=== PATIENT | male | born 1945 | race Caucasian/White ===

== ENCOUNTER 2016-09-27 10:42 | Inpatient (IN) | payer MEDICARE, MEDICAID ==
[2016-09-27] VITALS (44 sets, daily range): BP systolic 83–164; BP diastolic 34–145; PULSE 31–58; RESP 12–27; Ht 170.2 cm; Wt 85.0 kg
[~2016-09-27] VITALS: Ht 170.2 cm; Wt 85.0 kg
[~2016-09-27 10:42] MED LIST: ATROPINE 1 MG/10 ML SYRINGE ONE
[2016-09-27] MEDS ORDERED: ASPIRIN 81 MG TAB ONE (10:50)
[2016-09-27] MEDS ORDERED: ASPIRIN 325 MG TAB PO STA (10:55)
[2016-09-27] MEDS ORDERED: CLOPIDOGREL 75 MG TAB PO ONE (11:00)
[2016-09-27] MEDS ORDERED: HEPARIN 5,000 UNIT/0.5 ML VIAL SC ONE (11:00)
[2016-09-27 11:01] LABS: ADD SCAN DIFF NO
--- NOTE | 2016-09-27 11:05 | ERA ---
ER Documentation Chief Complaint Date/Time DATE: 09/27/16 TIME: 1045 Chief Complaint STEMI IN FIELD , CHEST PAIN WITH BRADYCARDIA, MOD SOB NOW HPI 70-year-old male brought to the emergency department by ambulance for evaluation of possible STEMI. History available via conveyor weigher operator. I am using an iPad for initial translation. Son then arrived to provide further translation. Patient was in his usual state of health until yesterday which time he was generally weak. He became diaphoretic this morning and apparently lost consciousness. According to the son, he performed CPR for an unknown amount of time but it was unclear if he actually lost pulses. The paramedics were called. Upon management internship arrival, patient did have pulses but was severely bradycardic and was brought to the emergency department for evaluation. Upon arrival, patient has no chest pain or shortness of breath or diaphoresis at this time. ROS All systems reviewed and are negative except as per history of present illness. FmHx Noncontributory for chief complaint Physical Exam Vitals Vital Signs Date Time Temp Pulse Resp B/P Pulse Ox O2 Delivery O2 Flow Rate FiO2 09/27/16 10:47 97.4 36 21 87/42 100 Physical Exam GENERAL: Patient is an ill diaphoretic male. HEENT: Pupils equal, round, and reactive to light. EOMI. There is no scleral icterus. NECK: C-spine is soft and supple, there is no meningismus. There is no cervical lymphadenopathy. LUNGS: Clear to auscultation bilaterally. There are no rales, wheezes or rhonchi. HEART: Slow regular rate and rhythm with no murmurs rubs or gallops ABDOMEN: Soft, non-tender, non-distended. There are bowel sounds in all four quadrants. No rebound or guarding. EXTREMITIES: There is no peripheral cyanosis or edema. No focal swelling or erythema. Patient has a left upper extremity AV dialysis graft NEURO: The patient moves all four extremities with 5/5 strength. Cranial nerves II - XII are intact. Normal gait. Alert and oriented SKIN: There is no apparent rash or petechiae. HEME/LYMPHATIC: There is no evidence of excessive bruising or lymphedema. PSYCHIATRIC: The patient does not appear anxious or depressed. Results 24 hrs Current Medications Medications (Trade) Dose Ordered Sig/Jesika Route PRN Reason Start Time Stop Time Status Last Admin Dose Admin Aspirin (Aspirin) 325 mg ONCE STAT PO 09/27/16 10:55 09/27/16 10:56 DC 09/27/16 10:59 Clopidogrel Bisulfate (plaVIX) 600 mg ONCE ONCE PO 09/27/16 11:00 09/27/16 11:01 Heparin Sodium (Porcine) (Heparin (5000 Units/0.5 ml)) 5,000 unit ONCE ONCE SC 09/27/16 11:00 09/27/16 11:01 Procedures/MDM Patient was taken immediately to a room, seen and evaluated. Comfort measures were initiated. Hand Heel Seat Fitter EKG was reviewed and a code STEMI was initiated. Aspirin was given. Atropine was considered, but patient's blood pressure improved with fluids and atropine was not necessary. Diagnostic tests were ordered and reviewed. 3 LEAD RHYTHM STRIP: Slow junctional bradycardia ranging from as low as the 20s to as high as the 50s. Hand Heel Seat Fitter EK lead EKG reviewed by myself: Junctional bradycardia 24 bpm Wide-complex ST elevations inferiorly with anterior reciprocal changes. Impression: ST elevation with complicating junctional bradycardia Repeat EKG upon arrival interpreted by myself: Junctional bradycardia 26 bpm Wide-complex QRS ST elevations inferiorly with anterior lateral reciprocal changes Impression: Junctional bradycardia complicating an inferior ND Repeat EKG interpreted by myself: No significant interval change from above. Heart rate remains bradycardic RADIOLOGY: Chest x-ray reviewed by myself showing no bony or soft tissue abnormalities. Cardiac silhouette slightly enlarged. Mediastinum appears normal. Lung gallagher demonstrate vascular engorgement but no obvious CHF or infiltrate. Impression, cardiomegaly. CONSULTATION: Code STEMI novelties sales representative was notified upon arrival. I spoke with the novelties sales representative soon thereafter and arrangements were made for emergent PCI REEVALUATION: Blood pressure improved with saline. MEDICAL DECISION MAKIN-year-old presents critically ill with a junctional bradycardia complicating an inferior STEMI. Patient is required aggressive medical management including oxygen fluids. Blood pressure is responding to fluids. I have considered using atropine. Potassium and renal function are pending at this time given his dialysis dependent renal failure, but his EKG is clear-cut with an inferior STEMI. I will treat hyperkalemia if necessary. At this time, the blood pressure is adequate. CRITICAL CARE: Time:>35 minutes Patient has a significant chance of clinical deterioration Treatments/Evaluations: Close monitoring and treatment of unstable vital signs, cardiorespiratory, and neurologic status, while maintaining tight balance of fluid, respiratory, and cardiac interventions. Departure Diagnosis: Primary Impression: ST elevation myocardial infarction (STEMI) Additional Impression: Junctional bradycardia Condition: Critical AMADOR TYLER September 27, 2016 11:05
[2016-09-27 11:07] LABS: BASOPHILS % 0.2 % (0.0-2.0); EOSINOPHILS % 0.1 % (0.0-7.0); HEMATOCRIT 36.9 % (42.0-52.0); HEMOGLOBIN 11.1 g/dl (14.0-18.0); LYMPHOCYTES % 18.4 % (15.0-51.0); MEAN CORPUSCULAR HEMOGLOBIN 26.1 pg (29.0-33.0); MEAN CORPUSCULAR HGB CONC 30.1 g/dl (32.0-37.0); MEAN CORPUSCULAR VOLUME 86.8 fl (82.0-101.0); MONOCYTE # 0.4 10^3/ul (0.3-0.9); MONOCYTES % 3.9 % (0.0-11.0); NEUTROPHIL # 8.3 10^3/ul (1.6-7.5); PLATELET COUNT 155 10^3/UL (140-415); RED BLOOD COUNT 4.25 10^6/ul (4.70-6.10); WHITE BLOOD COUNT 10.8 10^3/ul (4.8-10.8)
--- NOTE | 2016-09-27 11:27 | RADRPT ---
PROCEDURE: XR Chest. CLINICAL INDICATION: code stemi TECHNIQUE: Anterior chest x-ray. COMPARISON: None. FINDINGS: Defibrillator paddle overlies the right chest. The lung volumes are low. There is crowding of the central pulmonary vasculature. The lungs are otherwise clear. No pleural effusion identified. There is no evidence of pneumothorax. The cardiomediastinal silhouette is unremarkable. The soft tissues are normal. Osseous structures are unremarkable. IMPRESSION: 1. Low lung volumes with crowding of the central pulmonary vasculature. 2. No evidence of pneumonia or pneumothorax. RPTAT: QQ .Dru Jarquin MD, Date Time Electronically viewed and signed by .Dru Jarquin MD, on 09/27/2016 11:27 .M/
[2016-09-27 11:28] LABS: ALBUMIN 3.9 g/dl (3.3-4.9); ALBUMIN/GLOBULIN RATIO 1.08; BILIRUBIN,INDIRECT 0.2 mg/dl (0-1.1); BILIRUBIN,TOTAL 0.2 mg/dl (0.2-1.3); CALCIUM 8.7 mg/dl (8.4-10.2); CREATININE 7.42 mg/dl (0.61-1.24); POTASSIUM 4.5 mmol/L (3.5-5.1); TOTAL PROTEIN 7.5 g/dl (6.1-8.1)
[2016-09-27 11:31] LABS: PROTIME 13.2 Sec (12.2-14.2)
[2016-09-27 11:46] LABS: TROPONIN-I 13.3 ng/ml (0.00-0.12)
[2016-09-27 11:51] LABS: PARTIAL THROMBOPLASTIN TIME 25.5 Sec (25.0-35.0)
[2016-09-27] MEDS ORDERED: ONDANSETRON 4 MG INJ ONE (12:39)
[2016-09-27] MEDS ORDERED: DOPamine-D5W 1.6 MG/ML 250 ML ONE (12:57)
[2016-09-27] MEDS ORDERED: VERAPAMIL 5 MG INJ ONE (12:57)
[2016-09-27] MEDS ORDERED: IODIXANOL LOCM 100 ML BTL ONE (12:57)
[2016-09-27] MEDS ORDERED: HEPARIN 1000 UNITS/ML 10 ML INJ ONE (12:57)
[2016-09-27] MEDS ORDERED: IOHEXOL 350MG/ML 50 ML BTL ONE (12:57)
[2016-09-27] MEDS: ONDANSETRON 4 MG INJ IV PRN ×2 (12:57→19:55)
[2016-09-27] MEDS ORDERED: NITROGLYCERIN (IC) 100 MCG/ML INJ ONE (12:58)
[2016-09-27] MEDS ORDERED: NACL 0.9% 3 ML SYG IV SCH (13:30)
[2016-09-27] MEDS ORDERED: MAGNESIUM HYDROXIDE 30ML CUP PO PRN (13:30)
[2016-09-27] MEDS ORDERED: DOCUSATE SODIUM 100 MG CAP PO PRN (13:30)
[2016-09-27] MEDS ORDERED: NITROGLYCERIN (SL) 0.4 MG TAB SL PRN (13:30)
[2016-09-27] MEDS ORDERED: HYDROCODONE/APAP (5/325) TAB PO PRN ×2 (13:30)
[2016-09-27] MEDS ORDERED: ONDANSETRON 4 MG INJ IV PRN (13:30)
[2016-09-27] MEDS ORDERED: ACETAMINOPHEN 650 MG SUPP PR PRN (13:30)
[2016-09-27] MEDS ORDERED: ACETAMINOPHEN 325 MG TAB PO PRN (13:30)
[2016-09-27] MEDS ORDERED: morphine 2 MG INJ IV PRN (13:30)
[2016-09-27] MEDS ORDERED: BISACODYL 10 MG SUPP PR PRN (13:30)
[2016-09-27] MEDS ORDERED: ALBUMIN HUMAN 25% 100 ML IV PRN (13:30)
--- NOTE | 2016-09-27 13:45 | HP ---
Date/Time of Note Date/Time of Note DATE: 09/27/16 TIME: 13:37 Assessment/Plan VTE Prophylaxis VTE Prophylaxis Intervention: heparin Assessment/Plan Chief Complaint/Hosp Course Impression and plan 1. Reported ST elevated myocardial infarction with 2 stents placed to RCA. Continue telemetry monitoring. On Plavix and aspirin. Beta-farhan on hold due to bradycardia. Follow-up with cardiology recommendations. 2. End-stage renal disease. Rn Diabetes consulted. Follow up with recommendations. Monitor for left leg imbalance. 3. Diabetes. Glucose uncontrolled at this time. Will provide with insulin regimen. Will adjust as needed. Will follow-up on A1c. Will get extension educator to follow. 4. Anemia likely of chronic disease. H&H remained stable at this time. Will monitor for now. 5. Essential hypertension. Continue antihypertensives and adjust as needed 6. Suspect dyslipidemia. Follow-up on fasting lipid panel. Admission process 40 minutes Discussed plan of care with Dr. Stapleton Problems: HPI/ROS Admit Date/Time Admit Date/Time Hx of Present Illness Is a 70-year-old male with history of diabetes, end-stage renal disease on dialysis for 2 years, hypertension, suspect HLD, who came to [facility] due to reports of vomiting chest pain as well as generalized weakness. According to the patient his symptoms occurred 2 weeks prior to admission. Initially reportedly started throwing up. He denies any sick contacts or any other change. He progressively also felt weak along with some shortness of breath. On the day of his admission he reported to be more short of breath and also with chest pain that was tight. Patient's had called the son and after evaluation by son was reported that CPR was started however the duration of this is unknown. Was brought to [facility] where he was found to reportedly have ST elevated myocardial infarction patient was seen by director of community education and he did have stent placed to RCA. Initial troponin was seen at 13.3 and of note patient was hyperglycemic with a glucose of 354. Patient was also seen with some anemia likely of chronic kidney disease and he was also seen to be bradycardic with heart rate as well as 28. Patient did tolerate PCI intervention well and he is seen alert and oriented. No acute distress seen he denies any chest pain at this time. We will evaluate him for the aformentiond issues ROS 12 point review of systems obtained and entirely negative except that mentioned in history of present illness PMH/Family/Social Past Medical History Medical/surgical history 1. Diabetes, end-stage renal disease, hypertension, dyslipidemia Family History Significant Family History: other (Mother: Kidney disease) Social History Smoking Status: Former smoker (Quit 50 years ago) Drug Use: none Exam/Review of Systems Vital Signs Vitals Vital Signs Date Time Temp Pulse Resp B/P Pulse Ox O2 Delivery O2 Flow Rate FiO2 09/27/16 13:00 36 09/27/16 11:18 18 116/53 100 Non Rebreather 15.0 09/27/16 10:47 97.4 Exam Constitutional: alert, oriented Psych: nl mood/affect Head: atraumatic, normocephalic Eyes: nl conjunctiva Neck: non-tender, supple, No jvd Respiratory: clear to auscultation, normal air movement, other Cardiovascular: other (Bradycardic) Gastrointestinal: non-tender, soft Extremities: edema (Some noted bilateral lower extremities), normal pulses Neurological: CUSTOMER SPECIALIST II-XII intact, nl mental status, nl speech Labs Result Diagram: 09/27/16 1050 09/27/16 1050 Medications Medications Current Medications Miscellaneous Information (* Miscellaneous Pharmacy Order) Hold all Metformin ... ONCE XX ; Start 09/27/16 at 12:30; Stop 09/29/16 at 12:29 Aspirin (Halfprin) 81 mg DAILY PO ; Start 09/28/16 at 09:00 Clopidogrel Bisulfate (plaVIX) 75 mg DAILY PO ; Start 09/28/16 at 09:00 Ondansetron HCl (Zofran Inj) 4 mg Q6H PRN IV NAUSEA AND/OR VOMITING Last administered on 09/27/16t 12:57; Admin Dose 4 MG; Start 09/27/16 at 13:00 Acetaminophen (Tylenol Tab) 650 mg Q6H PRN PO PAIN LEVEL 1-3 OR FEVER; Start at 13:30 Acetaminophen (Tylenol Supp) 650 mg Q6H PRN [place] PAIN LEVEL 1-3 OR FEVER; Start 09/27/16 at 13:30 Acetaminophen/ Hydrocodone Bitart ([place] (5/325)) 1 tab Q6H PRN PO MODERATE PAIN LEVEL 4-6; Start 09/27/16 at 13:30 Acetaminophen/ Hydrocodone Bitart ([place] (5/325)) 2 tab Q6H PRN PO SEVERE PAIN LEVEL 7-10; Start 09/27/16 at 13:30 Morphine Sulfate (morphine) 2 mg Q4H PRN IV SEVERE PAIN LEVEL 7-10; Start 09/27 at 13:30 Docusate Sodium (Colace) 100 mg Q12H PRN PO CONSTIPATION; Start 09/27/16 at 13: 30 Magnesium Hydroxide (Milk Of Mag) 30 ml DAILY PRN PO CONSTIPATION; Start at 13:30 Bisacodyl (Dulcolax Supp) 10 mg DAILY PRN [place] CONSTIPATION; Start 09/27/16 at 13 :30 Famotidine (Pepcid Iv) 20 mg Q12 IV ; Start 09/27/16 at 21:00 Heparin Sodium (Porcine) (Heparin (5000 Units/0.5 ml)) 5,000 unit Q12 SC ; Start 09/27/16 at 21:00 Insulin Glargine (Lantus) 15 unit DAILY@20 SC ; Start 09/27/16 at 20:00 Nitroglycerin (Nitroglycerin (Sl Tab) 0.4 Mg) 1 tab Q5M PRN SL CHEST PAIN; Start 09/27/16 at 13:30 Miscellaneous Information 1 ea NOTE XX ; Start 09/27/16 at 14:00 Glucose (Glutose) 15 gm Q15M PRN PO DECREASED GLUCOSE; Start 09/27/16 at 14:00 Glucose (Glutose) 22.5 gm Q15M PRN PO DECREASED GLUCOSE; Start 09/27/16 at 14: 00 Dextrose (D50w Syringe) 25 ml Q15M PRN IV DECREASED GLUCOSE; Start 09/27/16 at 14:00 Dextrose (D50w Syringe) 50 ml Q15M PRN IV DECREASED GLUCOSE; Start 09/27/16 at 14:00 Glucagon (Glucagen) 1 mg Q15M PRN IM DECREASED GLUCOSE; Start 09/27/16 at 14:00 Glucose (Glutose) 15 gm Q15M PRN BUCCAL DECREASED GLUCOSE; Start 09/27/16 at 14 :00 YARA KISER September 27, 2016 13:45
[2016-09-27] MEDS ORDERED: GLUCAGON 1 MG INJ IM PRN (14:00)
[2016-09-27] MEDS ORDERED: GLUCOSE GEL 15 GRAM TUBE PO PRN ×2 (14:00)
[2016-09-27] MEDS ORDERED: DEXTROSE 50% 50 ML SYRINGE IV PRN ×2 (14:00)
[2016-09-27] MEDS ORDERED: GLUCOSE GEL 15 GRAM TUBE BUCCAL PRN (14:00)
[2016-09-27] MEDS ORDERED: ATROPINE 1 MG INJ IV ONE (14:30)
[2016-09-27] MEDS ORDERED: ATROPINE 1 MG/10 ML SYRINGE ONE (14:31)
[2016-09-27] MEDS ORDERED: ATROPINE 1 MG/10 ML SYRINGE IV PRN (15:00)
[2016-09-27] MEDS: INSULIN ASPART [NOVOLOG] 3 ML PEN SC SCH ×4 (15:19→21:42)
[2016-09-27] MEDS: DOPamine-D5W 1.6 MG/ML 250 ML IV SCH (15:24)
--- NOTE | 2016-09-27 16:51 | CONS ---
DATE OF ADMISSION: 09/27/2016 DATE OF CONSULTATION: 09/27/2016 TYPE OF CONSULTATION: Nephrology. REASON FOR CONSULTATION: End-stage renal disease on hemodialysis who presented with ST-elevation my ocardial infarction. HISTORY OF PRESENT ILLNESS: This is a 70-year-old male with a past medical history of hypertension, diabetes mellitus, end-stage renal disease on hemodialysis 3 times a week, who presented with a com plaint of chest pain, palpitations. The patient is noted to have acute ST-elevation myocardial infa rction. He underwent a cardiology consultation done by Dr. Rae Lundy and the patient was take n to catheterization lab, where he had 2 stents placed into his right coronary artery and the nephro logist was consulted because of maintenance hemodialysis. He also has anemia of chronic disease. C urrently, the patient was evaluated in the ICU where he had he has bradycardia with his heart rate d own to 46, blood pressure has been also down to 93/36. He is saturating 95% on 2 liters nasal cannu la, but he denies any symptoms of chest pain, palpitation, headache, dizziness, blurry vision, const ipation, diarrhea, dysuria, increased urinary frequency, lower extremity swelling. PAST MEDICAL HISTORY: Notable for hypertension, diabetes mellitus, end-stage renal disease on hemod ialysis 3 times a week. PAST SURGICAL HISTORY: History of dialysis access surgery. SOCIAL HISTORY: No smoking, alcohol or recreational drug use. FAMILY HISTORY: As per the patient, no family history of coronary artery disease, chronic kidney di sease or stroke. SOCIAL HISTORY: The patient is a former smoker, he quit approximately 50 years ago. PHYSICAL EXAMINATION: VITAL SIGNS: Temperature 98.6, heart rate 46, respirations 12, blood pressure is 93/36, saturation 95% on 2 liters nasal cannula. GENERAL: Awake, alert, in moderate distress. HEENT: Normal. Oropharynx clear. NECK: Supple, no JVD, no lymphadenopathy. LUNGS: Clear to auscultation. No crackles, no wheezes. HEART: S1, S2, bradycardia. No murmur. ABDOMEN: Soft, nontender, nondistended. Bowel sounds are present. EXTREMITIES: No clubbing, cyanosis, or edema. NEUROLOGICAL: Nonfocal, intact. PSYCHIATRIC: Appropriate affect and mood. LABORATORY DATA/DIAGNOSTIC IMAGIN. WBC 10.8, hemoglobin 11.1, platelet count 155. Sodium 139, potassium 4.5, chloride 93, bicarbon ate 29, BUN 53, creatinine 7.4, glucose 354, calcium 8.7. Troponin 13.3. LFTs are slightly elevate d. PT 13.2, PTT 25.5, INR 1. 2. EKG shows ST-elevation myocardial infarction. 3. Chest x-ray done in the emergency room which shows low lung volumes with crowding of the central pulmonary vasculature. There is no evidence of a pneumonia or pneumothorax. IMPRESSION: This is a 70-year-old male with: 1. Acute ST-elevation myocardial infarction, status post cardiac catheterization with 2 stents plac ed in the right coronary artery. 2. End-stage renal disease on hemodialysis 3 times a week. 3. Hypertension. 4. Diabetes mellitus type 2. 5. Bradycardia, severe, status post atropine in ICU. PLAN: Thank you, Dr. Gonzalez, for this consultation. The patient currently seen in the ICU. He is cu rrently hypotensive and bradycardic, so we will hold off on his hemodialysis today. 1. Plan is to do hemodialysis tomorrow morning. Depending on the patient's course in the hospital, will decide further plan. 2. He is currently seen in the ICU and he will be followed up with Cardiology and the Primary Care Service. Total time spent in this patient's evaluation making assessment and plan, and coming up with final r ecommendations took more than 60 minutes. Dictated By: RAYNE FITCH MD, KP/SEAN Conf#: [id number] DID#: [id number]
[2016-09-27 18:05] LABS: CK-MB 27.2 ng/ml (0.0-2.4); TROPONIN-I 28.4 ng/ml (0.00-0.12)
[2016-09-27] MEDS ORDERED: INSULIN GLARGINE [LANtus] 3 ML PEN SC SCH (20:00)
[2016-09-27] MEDS: HEPARIN 5,000 UNIT/0.5 ML VIAL SC SCH (20:51)
[2016-09-27] MEDS: FAMOTIDINE 20 MG INJ IV SCH (20:54)
[2016-09-27 23:59] LABS: CK-MB 32.2 ng/ml (0.0-2.4); TROPONIN-I 53.7 ng/ml (0.00-0.12)
[2016-09-28] VITALS (77 sets, daily range): BP systolic 67–134; BP diastolic 34–82; PULSE 27–93; RESP 15–27
[2016-09-28] MEDS: DOPamine-D5W 1.6 MG/ML 250 ML IV SCH ×2 (01:14→17:20)
[2016-09-28] MEDS: ONDANSETRON 4 MG INJ IV PRN ×3 (04:22→19:53)
[2016-09-28 06:34] LABS: ALBUMIN 3.6 g/dl (3.3-4.9); ALBUMIN/GLOBULIN RATIO 1.02; BILIRUBIN,INDIRECT 0.1 mg/dl (0-1.1); BILIRUBIN,TOTAL 0.1 mg/dl (0.2-1.3); CALCIUM 8.7 mg/dl (8.4-10.2); CHOL/HDL RATIO 2.2 RATIO; CREATININE 8.21 mg/dl (0.61-1.24); MAGNESIUM 2.1 mg/dl (1.7-2.5); PHOSPHORUS 6.9 mg/dl (2.5-4.9); POTASSIUM 4.9 mmol/L (3.5-5.1); TOTAL PROTEIN 7.1 g/dl (6.1-8.1)
[2016-09-28] MEDS: INSULIN ASPART [NOVOLOG] 3 ML PEN SC SCH ×7 (06:46→20:53)
[2016-09-28 06:50] LABS: T3 UPTAKE 41.1 % (23.5-40.5)
[2016-09-28 07:04] LABS: THYROID STIMULATING HORMONE 0.266 MIU/L (0.465-4.680)
[2016-09-28] MEDS: ASPIRIN (EC) 81 MG TAB PO SCH (09:01)
[2016-09-28] MEDS: CLOPIDOGREL 75 MG TAB PO SCH (09:01)
[2016-09-28] MEDS: FAMOTIDINE 20 MG INJ IV SCH ×2 (09:01→20:43)
[2016-09-28] MEDS: HEPARIN 5,000 UNIT/0.5 ML VIAL SC SCH ×2 (09:05→20:41)
--- NOTE | 2016-09-28 09:48 | RADRPT ---
Vent Rate: 47 bpm RR Interval: 0 msec ND Interval: 0 msec QRS Duration: 160 msec QT Interval: 582 msec QTC Interval: 515 msec P-R-T [place]: 55 - 94 - -79 degrees Marked sinus bradycardia with AV dissociation and Wide QRS rhythm Rightward axis Left bundle branch block Abnormal ECG Electronically Signed By: Shaila Mcclure [id number]
--- NOTE | 2016-09-28 11:13 | PN ---
Date/Time of Note Date/Time of Note DATE: 09/28/16 TIME: 11:00 Assessment/Plan VTE Prophylaxis VTE Prophylaxis Intervention: heparin Lines/Catheters IV [facility] Peripheral IV Urinary Cath still in place: No Assessment/Plan Chief Complaint/Hosp Course Impression and plan 1. Reported ST elevated myocardial infarction with 2 stents placed to RCA. Continue telemetry monitoring. On Plavix and aspirin. Beta-farhan on hold due to bradycardia. of note, troponin level still highly elevated 2. End-stage renal disease. continue with HD. Follow up with recommendations. electrolyte imbalance. 3. Diabetes. Glucose uncontrolled at this time. Will provide with insulin regimen. Will adjust as needed. A1c: 9.6. Will get critical care educator to follow. 4. Anemia likely of chronic disease. H&H remained stable at this time. Will monitor for now. 5. Essential hypertension. Continue antihypertensives and adjust as needed 6. Suspect dyslipidemia. cont on statin DISPO/PLAN: cont icu monitoring. insulin regimen adjusted . Follow up with cardiology for bradycardia Discussed plan of care with Dr. Stapleton Problems: Subjective 24 Hr Interval Summary Free Text/Dictation getting HD. no s/s of distress. Exam/Review of Systems Vital Signs Vitals Vital Signs Date Time Temp Pulse Resp B/P Pulse Ox O2 Delivery O2 Flow Rate FiO2 09/28/16 10:43 41 09/28/16 10:30 19 111/45 98 Nasal Cannula 2.0 09/28/16 07:45 98.3 Intake and Output 09/27/16 09/27/16 09/28/16 15:00 23:00 07:00 Intake Total 0 ml 159.188 ml 111.3 ml Output Total 0 ml 0 ml Balance 0 ml 159.188 ml 111.3 ml Exam Constitutional: alert, oriented Head: normocephalic Neck: supple, No jvd Respiratory: clear to auscultation, normal air movement Cardiovascular: regular rate and rhythm Gastrointestinal: non-tender, soft Musculoskeletal: nl extremities to inspection Extremities: normal pulses Neurological: HOTEL STAFF MEMBER II-XII intact, nl mental status, nl speech Skin: nl turgor Results Result Diagram: 09/27/16 1050 09/28/16 0455 Results 24 hrs Laboratory Tests Test 09/27/16 13:10 09/27/16 15:14 09/27/16 17:10 09/27/16 17:12 Bedside Glucose 357 H 368 H 337 H Creatine Kinase 625 H Creatine Kinase Index 4.4 Creatinine Kinase MB (Mass) 27.20 H Troponin I 28.400 *H Test 09/27/16 21:38 09/27/16 23:09 09/28/16 04:55 09/28/16 06:14 Bedside Glucose 198 187 Creatine Kinase 654 H Creatine Kinase Index 4.9 Creatinine Kinase MB (Mass) 32.20 H Troponin I 53.700 *H Sodium Level 141 Potassium Level 4.9 Chloride Level 93 L Carbon Dioxide Level 28 Anion Gap 25 H Blood Urea Nitrogen 67 H Creatinine 8.21 H Glucose Level 190 # Calcium Level 8.7 Phosphorus Level 6.9 H Magnesium Level 2.1 Total Bilirubin 0.1 L Direct Bilirubin 0.00 Indirect Bilirubin 0.1 Aspartate Amino Transf (AST/SGOT) 101 H Alanine Aminotransferase (ALT/SGPT) 116 H Alkaline Phosphatase 142 H Total Protein 7.1 Albumin 3.6 Globulin 3.50 H Albumin/Globulin Ratio 1.02 Triglycerides Level 97 Cholesterol Level 178 LDL Cholesterol, Calculated 80 HDL Cholesterol 79 H Cholesterol/HDL Ratio 2.2 Thyroid Stimulating Hormone (TSH) 0.266 L Free Thyroxine Index 2.84 Thyroxine (T4) 6.9 Triiodothyronine (T3) Uptake 41.1 H Test 09/28/16 08:38 Bedside Glucose 162 Medications Medications Current Medications Miscellaneous Information (* Miscellaneous Pharmacy Order) Hold all Metformin ... ONCE XX ; Start 09/27/16 at 12:30; Stop 09/29/16 at 12:29 Aspirin (Halfprin) 81 mg DAILY PO Last administered on 09/28/16 09:01; Admin Dose 81 MG; Start 09/28/16 at 09:00 Clopidogrel Bisulfate (plaVIX) 75 mg DAILY PO Last administered on 09/28/16 09 :01; Admin Dose 75 MG; Start 09/28/16 at 09:00 Ondansetron HCl (Zofran Inj) 4 mg Q6H PRN IV NAUSEA AND/OR VOMITING Last administered on 09/28/16 09:04; Admin Dose 4 MG; Start 09/27/16 at 13:00 Acetaminophen (Tylenol Tab) 650 mg Q6H PRN PO PAIN LEVEL 1-3 OR FEVER; Start at 13:30 Acetaminophen (Tylenol Supp) 650 mg Q6H PRN [place] PAIN LEVEL 1-3 OR FEVER; Start 09/27/16 at 13:30 Acetaminophen/ Hydrocodone Bitart ([place] (5/325)) 1 tab Q6H PRN PO MODERATE PAIN LEVEL 4-6; Start 09/27/16 at 13:30 Acetaminophen/ Hydrocodone Bitart ([place] (5/325)) 2 tab Q6H PRN PO SEVERE PAIN LEVEL 7-10; Start 09/27/16 at 13:30 Morphine Sulfate (morphine) 2 mg Q4H PRN IV SEVERE PAIN LEVEL 7-10; Start 09/27 at 13:30 Docusate Sodium (Colace) 100 mg Q12H PRN PO CONSTIPATION; Start 09/27/16 at 13: 30 Magnesium Hydroxide (Milk Of Mag) 30 ml DAILY PRN PO CONSTIPATION; Start at 13:30 Bisacodyl (Dulcolax Supp) 10 mg DAILY PRN [place] CONSTIPATION; Start 09/27/16 at 13 :30 Famotidine (Pepcid Iv) 20 mg Q12 IV Last administered on 09/28/16 09:01; Admin Dose 20 MG; Start 09/27/16 at 21:00 Heparin Sodium (Porcine) (Heparin (5000 Units/0.5 ml)) 5,000 unit Q12 SC Last administered on 09/28/16 09:05; Admin Dose 5,000 UNIT; Start 09/27/16 at 21:00 Nitroglycerin (Nitroglycerin (Sl Tab) 0.4 Mg) 1 tab Q5M PRN SL CHEST PAIN; Start 09/27/16 at 13:30 Miscellaneous Information 1 ea NOTE XX ; Start 09/27/16 at 14:00 Glucose (Glutose) 15 gm Q15M PRN PO DECREASED GLUCOSE; Start 09/27/16 at 14:00 Glucose (Glutose) 22.5 gm Q15M PRN PO DECREASED GLUCOSE; Start 09/27/16 at 14: 00 Dextrose (D50w Syringe) 25 ml Q15M PRN IV DECREASED GLUCOSE; Start 09/27/16 at 14:00 Dextrose (D50w Syringe) 50 ml Q15M PRN IV DECREASED GLUCOSE; Start 09/27/16 at 14:00 Glucagon (Glucagen) 1 mg Q15M PRN IM DECREASED GLUCOSE; Start 09/27/16 at 14:00 Glucose (Glutose) 15 gm Q15M PRN BUCCAL DECREASED GLUCOSE; Start 09/27/16 at 14 :00 Atropine Sulfate 0.5 mg 0.5 mg PRN PRN IV BRADYCARDIA (HR <40); Start 09/27/16 at 15:00 Dopamine HCl/ Dextrose 250 ml @ 6.375 mls/ hr TITRATE IV Last administered on 09/28/16t 01:14; Admin Dose 15.938 MLS/HR; Start 09/27/16 at 15:00 Insulin Glargine (Lantus) 21 unit DAILY@20 SC ; Start 09/28/16 at 20:00 YARA KISER September 28, 2016 11:13
--- NOTE | 2016-09-28 11:26 | CONS ---
Date/Time of Note Date/Time of Note DATE: 09/28/16 TIME: 11:22 Consult Date/Type/Reason Admit Date/Time September 27, 2016 at 12:23 Initial Consult Date Subjective Alert, awake, oriented, seems comfortable, Son at bed side- all Qs answered.Patient denies any discomfort. Had HD today- tolerated well, DW staff Objective Vital Signs Date Time Temp Pulse Resp B/P Pulse Ox O2 Delivery O2 Flow Rate FiO2 09/28/16 11:02 41 09/28/16 10:30 19 111/45 98 Nasal Cannula 2.0 09/28/16 07:45 98.3 Intake and Output 09/27/16 09/27/16 09/28/16 15:00 23:00 07:00 Intake Total 0 ml 159.188 ml 111.3 ml Output Total 0 ml 0 ml Balance 0 ml 159.188 ml 111.3 ml Exam GENERAL: NAD, Awake, alert, in moderate distress. Bradycardia HEENT: Normal. Oropharynx clear. NECK: Supple, no JVD, no lymphadenopathy. LUNGS: Clear to auscultation. No crackles, no wheezes. HEART: S1, S2, bradycardia. No murmur. ABDOMEN: Soft, nontender, nondistended. Bowel sounds are present. EXTREMITIES: No clubbing, cyanosis, or edema. NEUROLOGICAL: Nonfocal, intact. Able to move all 4 extremities. PSYCHIATRIC: Appropriate affect and mood. Results/Medications Result Diagram: 09/27/16 1050 09/28/16 0455 Results 24 hrs Laboratory Tests Test 09/27/16 13:10 09/27/16 15:14 09/27/16 17:10 09/27/16 17:12 Bedside Glucose 357 H 368 H 337 H Creatine Kinase 625 H Creatine Kinase Index 4.4 Creatinine Kinase MB (Mass) 27.20 H Troponin I 28.400 *H Test 09/27/16 21:38 09/27/16 23:09 09/28/16 04:55 09/28/16 06:14 Bedside Glucose 198 187 Creatine Kinase 654 H Creatine Kinase Index 4.9 Creatinine Kinase MB (Mass) 32.20 H Troponin I 53.700 *H Sodium Level 141 Potassium Level 4.9 Chloride Level 93 L Carbon Dioxide Level 28 Anion Gap 25 H Blood Urea Nitrogen 67 H Creatinine 8.21 H Glucose Level 190 # Calcium Level 8.7 Phosphorus Level 6.9 H Magnesium Level 2.1 Total Bilirubin 0.1 L Direct Bilirubin 0.00 Indirect Bilirubin 0.1 Aspartate Amino Transf (AST/SGOT) 101 H Alanine Aminotransferase (ALT/SGPT) 116 H Alkaline Phosphatase 142 H Total Protein 7.1 Albumin 3.6 Globulin 3.50 H Albumin/Globulin Ratio 1.02 Triglycerides Level 97 Cholesterol Level 178 LDL Cholesterol, Calculated 80 HDL Cholesterol 79 H Cholesterol/HDL Ratio 2.2 Thyroid Stimulating Hormone (TSH) 0.266 L Free Thyroxine Index 2.84 Thyroxine (T4) 6.9 Triiodothyronine (T3) Uptake 41.1 H Test 09/28/16 08:38 Bedside Glucose 162 Medications Current Medications Miscellaneous Information (* Miscellaneous Pharmacy Order) Hold all Metformin ... ONCE XX ; Start 09/27/16 at 12:30; Stop 09/29/16 at 12:29 Aspirin (Halfprin) 81 mg DAILY PO Last administered on 09/28/16 09:01; Admin Dose 81 MG; Start 09/28/16 at 09:00 Clopidogrel Bisulfate (plaVIX) 75 mg DAILY PO Last administered on 09/28/16 09 :01; Admin Dose 75 MG; Start 09/28/16 at 09:00 Ondansetron HCl (Zofran Inj) 4 mg Q6H PRN IV NAUSEA AND/OR VOMITING Last administered on 09/28/16 09:04; Admin Dose 4 MG; Start 09/27/16 at 13:00 Acetaminophen (Tylenol Tab) 650 mg Q6H PRN PO PAIN LEVEL 1-3 OR FEVER; Start at 13:30 Acetaminophen (Tylenol Supp) 650 mg Q6H PRN [place] PAIN LEVEL 1-3 OR FEVER; Start 09/27/16 at 13:30 Acetaminophen/ Hydrocodone Bitart ([place] (5/325)) 1 tab Q6H PRN PO MODERATE PAIN LEVEL 4-6; Start 09/27/16 at 13:30 Acetaminophen/ Hydrocodone Bitart ([place] (5/325)) 2 tab Q6H PRN PO SEVERE PAIN LEVEL 7-10; Start 09/27/16 at 13:30 Morphine Sulfate (morphine) 2 mg Q4H PRN IV SEVERE PAIN LEVEL 7-10; Start 09/27 at 13:30 Docusate Sodium (Colace) 100 mg Q12H PRN PO CONSTIPATION; Start 09/27/16 at 13: 30 Magnesium Hydroxide (Milk Of Mag) 30 ml DAILY PRN PO CONSTIPATION; Start at 13:30 Bisacodyl (Dulcolax Supp) 10 mg DAILY PRN [place] CONSTIPATION; Start 09/27/16 at 13 :30 Famotidine (Pepcid Iv) 20 mg Q12 IV Last administered on 09/28/16 09:01; Admin Dose 20 MG; Start 09/27/16 at 21:00 Heparin Sodium (Porcine) (Heparin (5000 Units/0.5 ml)) 5,000 unit Q12 SC Last administered on 09/28/16 09:05; Admin Dose 5,000 UNIT; Start 09/27/16 at 21:00 Nitroglycerin (Nitroglycerin (Sl Tab) 0.4 Mg) 1 tab Q5M PRN SL CHEST PAIN; Start 09/27/16 at 13:30 Miscellaneous Information 1 ea NOTE XX ; Start 09/27/16 at 14:00 Glucose (Glutose) 15 gm Q15M PRN PO DECREASED GLUCOSE; Start 09/27/16 at 14:00 Glucose (Glutose) 22.5 gm Q15M PRN PO DECREASED GLUCOSE; Start 09/27/16 at 14: 00 Dextrose (D50w Syringe) 25 ml Q15M PRN IV DECREASED GLUCOSE; Start 09/27/16 at 14:00 Dextrose (D50w Syringe) 50 ml Q15M PRN IV DECREASED GLUCOSE; Start 09/27/16 at 14:00 Glucagon (Glucagen) 1 mg Q15M PRN IM DECREASED GLUCOSE; Start 09/27/16 at 14:00 Glucose (Glutose) 15 gm Q15M PRN BUCCAL DECREASED GLUCOSE; Start 09/27/16 at 14 :00 Atropine Sulfate 0.5 mg 0.5 mg PRN PRN IV BRADYCARDIA (HR <40); Start 09/27/16 at 15:00 Dopamine HCl/ Dextrose 250 ml @ 6.375 mls/ hr TITRATE IV Last administered on 09/28/16 01:14; Admin Dose 15.938 MLS/HR; Start 09/27/16 at 15:00 Insulin Glargine (Lantus) 21 unit DAILY@20 SC ; Start 09/28/16 at 20:00 Assessment/Plan Additional Assessment/Plan This is a 70-year-old male with: 1. Acute ST-elevation myocardial infarction, status post cardiac catheterization with 2 stents placed in the right coronary artery. 2. End-stage renal disease on hemodialysis 3 times a week. - sp HD- 2 L removed 3. Hypertension. 4. Diabetes mellitus type 2. 5. Bradycardia, severe, status post atropine in ICU. PLAN: The patient currently seen in the ICU. - hemodialysis as per Dr Huerta - per Cardiology and the Primary Care Service. Total time spent in this patient's evaluation making assessment and plan, and recommendations, discussing with son - 30 minutes.Further recommendations depend upon patient's clinical course. Plan of care discussed with Dr Bryan Huerta/ staff KIYA ENNIS September 28, 2016 11:26
--- NOTE | 2016-09-28 14:13 | CONS ---
Date/Time of Note Date/Time of Note DATE: 09/28/16 TIME: 14:12 Consult Date/Type/Reason Admit Date/Time September 27, 2016 at 12:23 Initial Consult Date 06/30/2016 Reason for Consultation STEMI Objective Vital Signs Date Time Temp Pulse Resp B/P Pulse Ox O2 Delivery O2 Flow Rate FiO2 09/28/16 13:00 37 21 98/49 99 Nasal Cannula 09/28/16 12:07 2.0 09/28/16 11:00 98.5 Intake and Output 09/27/16 09/27/16 09/28/16 15:00 23:00 07:00 Intake Total 0 ml 159.188 ml 111.3 ml Output Total 0 ml 0 ml Balance 0 ml 159.188 ml 111.3 ml Results/Medications Result Diagram: 09/27/16 1050 09/28/16 0455 Results 24 hrs Laboratory Tests Test 09/27/16 15:14 09/27/16 17:10 09/27/16 17:12 09/27/16 21:38 Bedside Glucose 368 H 337 H 198 Creatine Kinase 625 H Creatine Kinase Index 4.4 Creatinine Kinase MB (Mass) 27.20 H Troponin I 28.400 *H Test 09/27/16 23:09 09/28/16 04:55 09/28/16 06:14 09/28/16 08:38 Creatine Kinase 654 H Creatine Kinase Index 4.9 Creatinine Kinase MB (Mass) 32.20 H Troponin I 53.700 *H Sodium Level 141 Potassium Level 4.9 Chloride Level 93 L Carbon Dioxide Level 28 Anion Gap 25 H Blood Urea Nitrogen 67 H Creatinine 8.21 H Glucose Level 190 # Calcium Level 8.7 Phosphorus Level 6.9 H Magnesium Level 2.1 Total Bilirubin 0.1 L Direct Bilirubin 0.00 Indirect Bilirubin 0.1 Aspartate Amino Transf (AST/SGOT) 101 H Alanine Aminotransferase (ALT/SGPT) 116 H Alkaline Phosphatase 142 H Total Protein 7.1 Albumin 3.6 Globulin 3.50 H Albumin/Globulin Ratio 1.02 Triglycerides Level 97 Cholesterol Level 178 LDL Cholesterol, Calculated 80 HDL Cholesterol 79 H Cholesterol/HDL Ratio 2.2 Thyroid Stimulating Hormone (TSH) 0.266 L Free Thyroxine Index 2.84 Thyroxine (T4) 6.9 Triiodothyronine (T3) Uptake 41.1 H Bedside Glucose 187 162 Test 09/28/16 11:52 Bedside Glucose 141 Medications Current Medications Miscellaneous Information (* Miscellaneous Pharmacy Order) Hold all Metformin ... ONCE XX ; Start 09/27/16 at 12:30; Stop 09/29/16 at 12:29 Aspirin (Halfprin) 81 mg DAILY PO Last administered on 09/28/16 09:01; Admin Dose 81 MG; Start 09/28/16 at 09:00 Clopidogrel Bisulfate (plaVIX) 75 mg DAILY PO Last administered on 09/28/16 09 :01; Admin Dose 75 MG; Start 09/28/16 at 09:00 Ondansetron HCl (Zofran Inj) 4 mg Q6H PRN IV NAUSEA AND/OR VOMITING Last administered on 09/28/16 09:04; Admin Dose 4 MG; Start 09/27/16 at 13:00 Acetaminophen (Tylenol Tab) 650 mg Q6H PRN PO PAIN LEVEL 1-3 OR FEVER; Start at 13:30 Acetaminophen (Tylenol Supp) 650 mg Q6H PRN [place] PAIN LEVEL 1-3 OR FEVER; Start 09/27/16 at 13:30 Acetaminophen/ Hydrocodone Bitart ([place] (5/325)) 1 tab Q6H PRN PO MODERATE PAIN LEVEL 4-6; Start 09/27/16 at 13:30 Acetaminophen/ Hydrocodone Bitart ([place] (5/325)) 2 tab Q6H PRN PO SEVERE PAIN LEVEL 7-10; Start 09/27/16 at 13:30 Morphine Sulfate (morphine) 2 mg Q4H PRN IV SEVERE PAIN LEVEL 7-10; Start 09/27 at 13:30 Docusate Sodium (Colace) 100 mg Q12H PRN PO CONSTIPATION; Start 09/27/16 at 13: 30 Magnesium Hydroxide (Milk Of Mag) 30 ml DAILY PRN PO CONSTIPATION; Start at 13:30 Bisacodyl (Dulcolax Supp) 10 mg DAILY PRN [place] CONSTIPATION; Start 09/27/16 at 13 :30 Famotidine (Pepcid Iv) 20 mg Q12 IV Last administered on 09/28/16 09:01; Admin Dose 20 MG; Start 09/27/16 at 21:00 Heparin Sodium (Porcine) (Heparin (5000 Units/0.5 ml)) 5,000 unit Q12 SC Last administered on 09/28/16 09:05; Admin Dose 5,000 UNIT; Start 09/27/16 at 21:00 Nitroglycerin (Nitroglycerin (Sl Tab) 0.4 Mg) 1 tab Q5M PRN SL CHEST PAIN; Start 09/27/16 at 13:30 Miscellaneous Information 1 ea NOTE XX ; Start 09/27/16 at 14:00 Glucose (Glutose) 15 gm Q15M PRN PO DECREASED GLUCOSE; Start 09/27/16 at 14:00 Glucose (Glutose) 22.5 gm Q15M PRN PO DECREASED GLUCOSE; Start 09/27/16 at 14: 00 Dextrose (D50w Syringe) 25 ml Q15M PRN IV DECREASED GLUCOSE; Start 09/27/16 at 14:00 Dextrose (D50w Syringe) 50 ml Q15M PRN IV DECREASED GLUCOSE; Start 09/27/16 at 14:00 Glucagon (Glucagen) 1 mg Q15M PRN IM DECREASED GLUCOSE; Start 09/27/16 at 14:00 Glucose (Glutose) 15 gm Q15M PRN BUCCAL DECREASED GLUCOSE; Start 09/27/16 at 14 :00 Atropine Sulfate 0.5 mg 0.5 mg PRN PRN IV BRADYCARDIA (HR <40); Start 09/27/16 at 15:00 Dopamine HCl/ Dextrose 250 ml @ 6.375 mls/ hr TITRATE IV Last administered on 09/28/16 01:14; Admin Dose 15.938 MLS/HR; Start 09/27/16 at 15:00 Insulin Glargine (Lantus) 21 unit DAILY@20 SC ; Start 09/28/16 at 20:00 Assessment/Plan Chief Complaint/Hosp Course Pt with RCA STEMI s/p PCI of RCA x 2 BUNNY ASA Plavix Problems: Additional Assessment/Plan Continue med mx statin added lisinopril added no BB due to bradycardia asymptomatic sinus judy tx out of ICU HUNTER BASSETT MD September 28, 2016 14:13
[2016-09-28] MEDS: LISINOPRIL 5 MG TAB PO SCH (14:30)
[2016-09-28] MEDS ORDERED: SOD CHLORIDE 0.9% 1,000 ML IV ONE (15:00)
[2016-09-28] MEDS: SOD CHLORIDE 0.9% 1,000 ML IV SCH (16:31)
[2016-09-28] MEDS: ATORVASTATIN 80 MG TAB PO SCH (20:43)
[2016-09-28] MEDS: INSULIN GLARGINE [LANtus] 3 ML PEN SC SCH (20:59)
[2016-09-29] VITALS (56 sets, daily range): BP systolic 87–143; BP diastolic 37–99; PULSE 28–88; RESP 14–27
[2016-09-29 04:46] LABS: ADD SCAN DIFF NO
[2016-09-29 04:52] LABS: BASOPHILS % 0.1 % (0.0-2.0); HEMATOCRIT 33.2 % (42.0-52.0); HEMOGLOBIN 10.3 g/dl (14.0-18.0); LYMPHOCYTES # 1.2 10^3/ul (0.8-2.9); LYMPHOCYTES % 11.5 % (15.0-51.0); MEAN CORPUSCULAR HEMOGLOBIN 26.8 pg (29.0-33.0); MEAN CORPUSCULAR VOLUME 86.2 fl (82.0-101.0); MEAN PLATELET VOLUME 12.2 fl (7.4-10.4); MONOCYTE # 0.8 10^3/ul (0.3-0.9); MONOCYTES % 7.6 % (0.0-11.0); NEUTROPHILS % 80.4 % (39.0-77.0); PLATELET COUNT 158 10^3/UL (140-415); RED BLOOD COUNT 3.85 10^6/ul (4.70-6.10); RED CELL DISTRIBUTION WIDTH 15.4 % (11.5-14.5)
[2016-09-29 05:15] LABS: ALBUMIN/GLOBULIN RATIO 0.85; BILIRUBIN,INDIRECT 0.1 mg/dl (0-1.1); BILIRUBIN,TOTAL 0.1 mg/dl (0.2-1.3); CALCIUM 7.2 mg/dl (8.4-10.2); CREATININE 6.72 mg/dl (0.61-1.24); POTASSIUM 4.2 mmol/L (3.5-5.1); TOTAL PROTEIN 6.5 g/dl (6.1-8.1)
[2016-09-29] MEDS: SOD CHLORIDE 0.9% 1,000 ML IV SCH ×2 (06:23→19:36)
[2016-09-29] MEDS: DOPamine-D5W 1.6 MG/ML 250 ML IV SCH ×2 (06:24→09:35)
[2016-09-29] MEDS: INSULIN ASPART [NOVOLOG] 3 ML PEN SC SCH ×7 (07:35→20:23)
[2016-09-29] MEDS ORDERED: ASPIRIN 81 MG TAB PO SCH (09:00)
--- NOTE | 2016-09-29 09:33 | PN ---
Date/Time of Note Date/Time of Note DATE: 09/29/16 TIME: 09:28 Assessment/Plan VTE Prophylaxis VTE Prophylaxis Intervention: SCD's Lines/Catheters IV Catheter Type (from Nrs): Peripheral IV Urinary Cath still in place: No Assessment/Plan Chief Complaint/Hosp Course 70 yo M with pmhx ESRD admitted for chest pain found to have STEMI, sp PCI x 2 from cardiology service. Hospital course notable for sinus bradycardia. #STEMI and bradycardia: Dr Lundy/cardiology service following. Cont acei, asa/plavix, statin holding bb given bradycardia defer weaning of dopamine and consideration for PM placement to cardiology #ESRD: renal following #wheezing: trial of duonebs #dispo: ICU v floor as per cardiology. Will get PT involved tomorrow to aid in discharge planning. Pt lives at home with #DVT prophx: SCDs #GI prophx: stop IV famotidine as pt not intubated or on steroids, will watch hgb closely #DM2: cont basal/bolus insulin #FEN: cardiac diet Plan of care dw pt and his sons Problems: Subjective 24 Hr Interval Summary Free Text/Dictation Pt seen this AM with sons at bedside assisting with translation. Pt reports fatigue, mild shortness of breath but overall feels better than when he was admitted Exam/Review of Systems Vital Signs Vitals Vital Signs Date Time Temp Pulse Resp B/P Pulse Ox O2 Delivery O2 Flow Rate FiO2 09/29/16 06:30 34 24 140/48 92 09/29/16 04:00 98.3 09/29/16 01:50 2.0 09/28/16 20:00 Nasal Cannula Intake and Output 09/28/16 09/28/16 09/29/16 15:00 23:00 07:00 Intake Total 731.4 ml 1620.43 ml 727.2 ml Output Total 2520 ml Balance -1788.6 ml 1620.43 ml 727.2 ml Exam NAD, sitting up in bed wearing NC +wheezing over anterior lung gallagher abd soft no le edema no rashes responds to questions appropriately Results Result Diagram: 09/29/16 0430 09/29/16 0430 Results 24 hrs Laboratory Tests Test 09/28/16 11:52 09/28/16 15:18 09/28/16 17:53 09/28/16 20:53 Bedside Glucose 141 139 165 121 Test 09/29/16 04:30 09/29/16 08:58 White Blood Count 10.0 Red Blood Count 3.85 L Hemoglobin 10.3 L Hematocrit 33.2 L Mean Corpuscular Volume 86.2 Mean Corpuscular Hemoglobin 26.8 L Mean Corpuscular Hemoglobin Concent 31.0 L Red Cell Distribution Width 15.4 H Platelet Count 158 Mean Platelet Volume 12.2 H Neutrophils % 80.4 H Lymphocytes % 11.5 L Monocytes % 7.6 Eosinophils % 0.0 Basophils % 0.1 Nucleated Red Blood Cells % 0.0 Neutrophils # 8.0 H Lymphocytes # 1.2 Monocytes # 0.8 Eosinophils # 0.0 Basophils # 0.0 Nucleated Red Blood Cells # 0.0 Sodium Level 140 Potassium Level 4.2 Chloride Level 101 Carbon Dioxide Level 22 Anion Gap 21 H Blood Urea Nitrogen 57 H Creatinine 6.72 H Glucose Level 200 Calcium Level 7.2 L Total Bilirubin 0.1 L Direct Bilirubin 0.00 Indirect Bilirubin 0.1 Aspartate Amino Transf (AST/SGOT) 221 #H Alanine Aminotransferase (ALT/SGPT) 364 H Alkaline Phosphatase 105 Total Protein 6.5 Albumin 3.0 L Globulin 3.50 H Albumin/Globulin Ratio 0.85 Bedside Glucose 158 Medications Medications Current Medications Miscellaneous Information (* Miscellaneous Pharmacy Order) Hold all Metformin ... ONCE XX ; Start 09/27/16 at 12:30; Stop 09/29/16 at 12:29 Aspirin (Halfprin) 81 mg DAILY PO Last administered on 09/28/16 09:01; Admin Dose 81 MG; Start 09/28/16 at 09:00 Clopidogrel Bisulfate (plaVIX) 75 mg DAILY PO Last administered on 09/28/16 09 :01; Admin Dose 75 MG; Start 09/28/16 at 09:00 Ondansetron HCl (Zofran Inj) 4 mg Q6H PRN IV NAUSEA AND/OR VOMITING Last administered on 09/28/16 19:53; Admin Dose 4 MG; Start 09/27/16 at 13:00 Acetaminophen (Tylenol Tab) 650 mg Q6H PRN PO PAIN LEVEL 1-3 OR FEVER; Start at 13:30 Acetaminophen (Tylenol Supp) 650 mg Q6H PRN [place] PAIN LEVEL 1-3 OR FEVER; Start 09/27/16 at 13:30 Acetaminophen/ Hydrocodone Bitart ([place] (5/325)) 1 tab Q6H PRN PO MODERATE PAIN LEVEL 4-6 Last administered on 09/28/16 20:43; Admin Dose 1 TAB; Start at 13:30 Acetaminophen/ Hydrocodone Bitart ([place] (5/325)) 2 tab Q6H PRN PO SEVERE PAIN LEVEL 7-10; Start 09/27/16 at 13:30 Morphine Sulfate (morphine) 2 mg Q4H PRN IV SEVERE PAIN LEVEL 7-10; Start 09/27 at 13:30 Docusate Sodium (Colace) 100 mg Q12H PRN PO CONSTIPATION; Start 09/27/16 at 13: 30 Magnesium Hydroxide (Milk Of Mag) 30 ml DAILY PRN PO CONSTIPATION; Start at 13:30 Bisacodyl (Dulcolax Supp) 10 mg DAILY PRN [place] CONSTIPATION; Start 09/27/16 at 13 :30 Famotidine (Pepcid Iv) 20 mg Q12 IV Last administered on 09/28/16 20:43; Admin Dose 20 MG; Start 09/27/16 at 21:00 Heparin Sodium (Porcine) (Heparin (5000 Units/0.5 ml)) 5,000 unit Q12 SC Last administered on 09/28/16 20:41; Admin Dose 5,000 UNIT; Start 09/27/16 at 21:00 Nitroglycerin (Nitroglycerin (Sl Tab) 0.4 Mg) 1 tab Q5M PRN SL CHEST PAIN; Start 09/27/16 at 13:30 Miscellaneous Information 1 ea NOTE XX ; Start 09/27/16 at 14:00 Glucose (Glutose) 15 gm Q15M PRN PO DECREASED GLUCOSE; Start 09/27/16 at 14:00 Glucose (Glutose) 22.5 gm Q15M PRN PO DECREASED GLUCOSE; Start 09/27/16 at 14: 00 Dextrose (D50w Syringe) 25 ml Q15M PRN IV DECREASED GLUCOSE; Start 09/27/16 at 14:00 Dextrose (D50w Syringe) 50 ml Q15M PRN IV DECREASED GLUCOSE; Start 09/27/16 at 14:00 Glucagon (Glucagen) 1 mg Q15M PRN IM DECREASED GLUCOSE; Start 09/27/16 at 14:00 Glucose (Glutose) 15 gm Q15M PRN BUCCAL DECREASED GLUCOSE; Start 09/27/16 at 14 :00 Atropine Sulfate 0.5 mg 0.5 mg PRN PRN IV BRADYCARDIA (HR <40); Start 09/27/16 at 15:00 Dopamine HCl/ Dextrose 250 ml @ 6.375 mls/ hr TITRATE IV Last administered on 09/28/16 17:20; Admin Dose 15.938 MLS/HR; Start 09/27/16 at 15:00 Insulin Glargine (Lantus) 21 unit DAILY@20 SC Last administered on 09/28/16 20 :59; Admin Dose 21 UNIT; Start 09/28/16 at 20:00 Atorvastatin Calcium (Lipitor) 80 mg HS PO Last administered on 09/28/16 20:43 ; Admin Dose 80 MG; Start 09/28/16 at 21:00 Lisinopril 5 mg 5 mg DAILY PO ; Start 09/28/16 at 14:30 Sodium Chloride (NS) 1,000 ml @ 75 mls/hr [id number] IV Last administered on 09/29 06:23; Admin Dose 75 MLS/HR; Start 09/28/16 at 16:30 AMARILIS CONTRERAS MD September 29, 2016 09:33
--- NOTE | 2016-09-29 10:52 | CONS ---
Date/Time of Note Date/Time of Note DATE: 09/29/16 TIME: 10:51 Consult Date/Type/Reason Admit Date/Time September 27, 2016 at 12:23 Initial Consult Date 06/30/2016 Type of Consultation: Card Objective Vital Signs Date Time Temp Pulse Resp B/P Pulse Ox O2 Delivery O2 Flow Rate FiO2 09/29/16 08:00 34 09/29/16 06:30 24 140/48 92 09/29/16 04:00 98.3 09/29/16 01:50 2.0 09/28/16 20:00 Nasal Cannula Intake and Output 09/28/16 09/28/16 09/29/16 15:00 23:00 07:00 Intake Total 731.4 ml 1620.43 ml 727.2 ml Output Total 2520 ml Balance -1788.6 ml 1620.43 ml 727.2 ml Results/Medications Result Diagram: 09/29/16 0430 09/29/16 0430 Results 24 hrs Laboratory Tests Test 09/28/16 11:52 09/28/16 15:18 09/28/16 17:53 09/28/16 20:53 Bedside Glucose 141 139 165 121 Test 09/29/16 04:30 09/29/16 08:58 White Blood Count 10.0 Red Blood Count 3.85 L Hemoglobin 10.3 L Hematocrit 33.2 L Mean Corpuscular Volume 86.2 Mean Corpuscular Hemoglobin 26.8 L Mean Corpuscular Hemoglobin Concent 31.0 L Red Cell Distribution Width 15.4 H Platelet Count 158 Mean Platelet Volume 12.2 H Neutrophils % 80.4 H Lymphocytes % 11.5 L Monocytes % 7.6 Eosinophils % 0.0 Basophils % 0.1 Nucleated Red Blood Cells % 0.0 Neutrophils # 8.0 H Lymphocytes # 1.2 Monocytes # 0.8 Eosinophils # 0.0 Basophils # 0.0 Nucleated Red Blood Cells # 0.0 Sodium Level 140 Potassium Level 4.2 Chloride Level 101 Carbon Dioxide Level 22 Anion Gap 21 H Blood Urea Nitrogen 57 H Creatinine 6.72 H Glucose Level 200 Calcium Level 7.2 L Total Bilirubin 0.1 L Direct Bilirubin 0.00 Indirect Bilirubin 0.1 Aspartate Amino Transf (AST/SGOT) 221 #H Alanine Aminotransferase (ALT/SGPT) 364 H Alkaline Phosphatase 105 Total Protein 6.5 Albumin 3.0 L Globulin 3.50 H Albumin/Globulin Ratio 0.85 Bedside Glucose 158 Medications Current Medications Miscellaneous Information (* Miscellaneous Pharmacy Order) Hold all Metformin ... ONCE XX ; Start 09/27/16 at 12:30; Stop 09/29/16 at 12:29 Aspirin (Halfprin) 81 mg DAILY PO Last administered on 09/28/16 09:01; Admin Dose 81 MG; Start 09/28/16 at 09:00 Clopidogrel Bisulfate (plaVIX) 75 mg DAILY PO Last administered on 09/28/16 09 :01; Admin Dose 75 MG; Start 09/28/16 at 09:00 Ondansetron HCl (Zofran Inj) 4 mg Q6H PRN IV NAUSEA AND/OR VOMITING Last administered on 09/28/16 19:53; Admin Dose 4 MG; Start 09/27/16 at 13:00 Acetaminophen (Tylenol Tab) 650 mg Q6H PRN PO PAIN LEVEL 1-3 OR FEVER; Start at 13:30 Acetaminophen (Tylenol Supp) 650 mg Q6H PRN [place] PAIN LEVEL 1-3 OR FEVER; Start 09/27/16 at 13:30 Acetaminophen/ Hydrocodone Bitart ([place] (5/325)) 1 tab Q6H PRN PO MODERATE PAIN LEVEL 4-6 Last administered on 09/28/16 20:43; Admin Dose 1 TAB; Start at 13:30 Acetaminophen/ Hydrocodone Bitart ([place] (5/325)) 2 tab Q6H PRN PO SEVERE PAIN LEVEL 7-10; Start 09/27/16 at 13:30 Morphine Sulfate (morphine) 2 mg Q4H PRN IV SEVERE PAIN LEVEL 7-10; Start 09/27 at 13:30 Docusate Sodium (Colace) 100 mg Q12H PRN PO CONSTIPATION; Start 09/27/16 at 13: 30 Magnesium Hydroxide (Milk Of Mag) 30 ml DAILY PRN PO CONSTIPATION; Start at 13:30 Bisacodyl (Dulcolax Supp) 10 mg DAILY PRN [place] CONSTIPATION; Start 09/27/16 at 13 :30 Heparin Sodium (Porcine) (Heparin (5000 Units/0.5 ml)) 5,000 unit Q12 SC Last administered on 09/28/16 20:41; Admin Dose 5,000 UNIT; Start 09/27/16 at 21:00 Nitroglycerin (Nitroglycerin (Sl Tab) 0.4 Mg) 1 tab Q5M PRN SL CHEST PAIN; Start 09/27/16 at 13:30 Miscellaneous Information 1 ea NOTE XX ; Start 09/27/16 at 14:00 Glucose (Glutose) 15 gm Q15M PRN PO DECREASED GLUCOSE; Start 09/27/16 at 14:00 Glucose (Glutose) 22.5 gm Q15M PRN PO DECREASED GLUCOSE; Start 09/27/16 at 14: 00 Dextrose (D50w Syringe) 25 ml Q15M PRN IV DECREASED GLUCOSE; Start 09/27/16 at 14:00 Dextrose (D50w Syringe) 50 ml Q15M PRN IV DECREASED GLUCOSE; Start 09/27/16 at 14:00 Glucagon (Glucagen) 1 mg Q15M PRN IM DECREASED GLUCOSE; Start 09/27/16 at 14:00 Glucose (Glutose) 15 gm Q15M PRN BUCCAL DECREASED GLUCOSE; Start 09/27/16 at 14 :00 Atropine Sulfate 0.5 mg 0.5 mg PRN PRN IV BRADYCARDIA (HR <40); Start 09/27/16 at 15:00 Dopamine HCl/ Dextrose 250 ml @ 6.375 mls/ hr TITRATE IV Last administered on 09/29/16 09:35; Admin Dose 15.938 MLS/HR; Start 09/27/16 at 15:00 Insulin Glargine (Lantus) 21 unit DAILY@20 SC Last administered on 09/28/16 20 :59; Admin Dose 21 UNIT; Start 09/28/16 at 20:00 Atorvastatin Calcium (Lipitor) 80 mg HS PO Last administered on 09/28/16 20:43 ; Admin Dose 80 MG; Start 09/28/16 at 21:00 Lisinopril 5 mg 5 mg DAILY PO ; Start 09/28/16 at 14:30 Sodium Chloride (NS) 1,000 ml @ 75 mls/hr [id number] IV Last administered on 09/29 06:23; Admin Dose 75 MLS/HR; Start 09/28/16 at 16:30 Assessment/Plan Chief Complaint/Hosp Course Pt with RCA STEMI s/p PCI of RCA x 2 BUNNY ASA Plavix Problems: Additional Assessment/Plan Pt stayed in [facility] post RCA [place] likey that he has infarcted AVN as well as underlying disease will wait another day or two with temp wire placement to see if he recovers. No BB ICU monitoring d/c dopamine will /fu HUNTER BASSETT MD September 29, 2016 10:52
[2016-09-29] MEDS ORDERED: LIDOCAINE 1% (MDV) 20 ML INJ ONE (11:05)
[2016-09-29] MEDS ORDERED: IODIXANOL LOCM 100 ML BTL ONE (11:05)
[2016-09-29] MEDS ORDERED: IODIXANOL LOCM 50 ML BTL ONE (11:05)
--- NOTE | 2016-09-29 11:17 | SP ---
DATE OF PROCEDURE: TEMPORARY PACEMAKER WIRING WITH VENOGRAPHY INDICATIONS FOR THE PROCEDURE: Complete heart block, inferior myocardial infarction. PROCEDURES: 1. Right IJ venography with subclavian venography. 2. 5-[place] temporary pacemaker wire placement under fluoroscopy and ultrasound guidance. 3. Fluoroscopy and ultrasound guidance. PROCEDURE DETAILS: After informed consent, the patient was brought to cardiac catheter lab. The patient had a complete heart block, post right RCA PR. The patient is significantly symptomatic with junctional escape of 30 beats per minute. The patient and the family have been explained in detail regarding the procedure without complications. Patient was brought to cardiac catheter lab. Right IJ was prepped and draped and accessed with a 5-[place] sheath. Followed by that ultrasound-guided access, successful temporary pacemaker wire was placed into RV apex and anteroseptal area with good capture and good placement under fluoroscopy guidance. The pacemaker was sutured and procedure was finished without any complication. PROCEDURES PERFORMED: Successful placement of a temporary pacemaker wire ultrasound and fluoroscopy guidance. RECOMMENDATIONS: Continue temporary pacer. Try to see if the patient recovers from his complete heart block. Otherwise, patient will require a permanent pacemaker in 1 or 2 days if he does not recover. Dictated By: HUNTER ZARATE/SEAN Conf#: [id number] DID#: [id number]
[2016-09-29] MEDS: LISINOPRIL 5 MG TAB PO SCH (12:22)
[2016-09-29] MEDS: ASPIRIN (EC) 81 MG TAB PO SCH (12:22)
[2016-09-29] MEDS: CLOPIDOGREL 75 MG TAB PO SCH (12:22)
[2016-09-29] MEDS: HEPARIN 5,000 UNIT/0.5 ML VIAL SC SCH ×2 (12:23→20:27)
[2016-09-29] MEDS: ALBUTEROL/IPRATROPIUM (NEB) 3 ML AMP INH SCH ×2 (13:26→19:42)
--- NOTE | 2016-09-29 14:02 | CONS ---
Date/Time of Note Date/Time of Note DATE: 09/29/16 TIME: 13:59 Assessment/Plan Assessment/Plan Additional Assessment/Plan This is a 70-year-old male with: 1. Acute ST-elevation myocardial infarction, status post cardiac catheterization with 2 stents placed in the right coronary artery. 2. End-stage renal disease on hemodialysis 3 times a week. - sp HD- 2 L removed 3. Hypertension. 4. Diabetes mellitus type 2. 5. Bradycardia, severe, status post atropine in ICU. - sp pacemaker by DR Lundy, cont to monitor PLAN: The patient currently seen in the ICU. - hemodialysis as per Dr Huerta - per Cardiology and the Primary Care Service. Total time spent in this patient's evaluation making assessment and plan, and recommendations, discussing with son - 30 minutes.Further recommendations depend upon patient's clinical Consultation Date/Type/Reason Admit Date/Time September 27, 2016 at 12:23 Type of Consultation: Card 24 HR Interval Summary Free Text/Dictation Alert, awake, oriented, seems comfortable, at bed side- all Qs answered.Patient denies any discomfort.sp Pacemaker placement today- tolerated well, HD yesterday - 4 L removed staff Exam/Review of Systems Vital Signs Vitals Vital Signs Date Time Temp Pulse Resp B/P Pulse Ox O2 Delivery O2 Flow Rate FiO2 09/29/16 08:00 34 09/29/16 06:30 24 140/48 92 09/29/16 04:00 98.3 09/29/16 01:50 2.0 09/28/16 20:00 Nasal Cannula Intake and Output 09/28/16 09/28/16 09/29/16 15:00 23:00 07:00 Intake Total 731.4 ml 1620.43 ml 727.2 ml Output Total 2520 ml Balance -1788.6 ml 1620.43 ml 727.2 ml Exam GENERAL: NAD, Awake, alert, in moderate distress. Bradycardia HEENT: Normal. Oropharynx clear. NECK: Supple, no JVD, no lymphadenopathy. LUNGS: Clear to auscultation. No crackles, no wheezes. HEART: S1, S2, bradycardia. No murmur. ABDOMEN: Soft, nontender, nondistended. Bowel sounds are present. EXTREMITIES: No clubbing, cyanosis, or edema. NEUROLOGICAL: Nonfocal, intact. Able to move all 4 extremities. PSYCHIATRIC: Appropriate affect and mood. Results Result Diagram: 09/29/16 0430 09/29/16 0430 Results 24 hrs Laboratory Tests Test 09/28/16 15:18 09/28/16 17:53 09/28/16 20:53 09/29/16 04:30 Bedside Glucose 139 165 121 White Blood Count 10.0 Red Blood Count 3.85 L Hemoglobin 10.3 L Hematocrit 33.2 L Mean Corpuscular Volume 86.2 Mean Corpuscular Hemoglobin 26.8 L Mean Corpuscular Hemoglobin Concent 31.0 L Red Cell Distribution Width 15.4 H Platelet Count 158 Mean Platelet Volume 12.2 H Neutrophils % 80.4 H Lymphocytes % 11.5 L Monocytes % 7.6 Eosinophils % 0.0 Basophils % 0.1 Nucleated Red Blood Cells % 0.0 Neutrophils # 8.0 H Lymphocytes # 1.2 Monocytes # 0.8 Eosinophils # 0.0 Basophils # 0.0 Nucleated Red Blood Cells # 0.0 Sodium Level 140 Potassium Level 4.2 Chloride Level 101 Carbon Dioxide Level 22 Anion Gap 21 H Blood Urea Nitrogen 57 H Creatinine 6.72 H Glucose Level 200 Calcium Level 7.2 L Total Bilirubin 0.1 L Direct Bilirubin 0.00 Indirect Bilirubin 0.1 Aspartate Amino Transf (AST/SGOT) 221 #H Alanine Aminotransferase (ALT/SGPT) 364 H Alkaline Phosphatase 105 Total Protein 6.5 Albumin 3.0 L Globulin 3.50 H Albumin/Globulin Ratio 0.85 Test 09/29/16 08:58 09/29/16 12:13 Bedside Glucose 158 169 Medications Medications Current Medications Aspirin (Halfprin) 81 mg DAILY PO Last administered on 09/29/16 12:22; Admin Dose 81 MG; Start 09/28/16 at 09:00 Clopidogrel Bisulfate (plaVIX) 75 mg DAILY PO Last administered on 09/29/16 12 :22; Admin Dose 75 MG; Start 09/28/16 at 09:00 Ondansetron HCl (Zofran Inj) 4 mg Q6H PRN IV NAUSEA AND/OR VOMITING Last administered on 09/28/16 19:53; Admin Dose 4 MG; Start 09/27/16 at 13:00 Acetaminophen (Tylenol Tab) 650 mg Q6H PRN PO PAIN LEVEL 1-3 OR FEVER; Start at 13:30 Acetaminophen (Tylenol Supp) 650 mg Q6H PRN [place] PAIN LEVEL 1-3 OR FEVER; Start 09/27/16 at 13:30 Acetaminophen/ Hydrocodone Bitart ([place] (5/325)) 1 tab Q6H PRN PO MODERATE PAIN LEVEL 4-6 Last administered on 09/28/16 20:43; Admin Dose 1 TAB; Start at 13:30 Acetaminophen/ Hydrocodone Bitart ([place] (5/325)) 2 tab Q6H PRN PO SEVERE PAIN LEVEL 7-10; Start 09/27/16 at 13:30 Morphine Sulfate (morphine) 2 mg Q4H PRN IV SEVERE PAIN LEVEL 7-10; Start 09/27 at 13:30 Docusate Sodium (Colace) 100 mg Q12H PRN PO CONSTIPATION; Start 09/27/16 at 13: 30 Magnesium Hydroxide (Milk Of Mag) 30 ml DAILY PRN PO CONSTIPATION; Start at 13:30 Bisacodyl (Dulcolax Supp) 10 mg DAILY PRN [place] CONSTIPATION; Start 09/27/16 at 13 :30 Heparin Sodium (Porcine) (Heparin (5000 Units/0.5 ml)) 5,000 unit Q12 SC Last administered on 09/29/16 12:23; Admin Dose 5,000 UNIT; Start 09/27/16 at 21:00 Nitroglycerin (Nitroglycerin (Sl Tab) 0.4 Mg) 1 tab Q5M PRN SL CHEST PAIN; Start 09/27/16 at 13:30 Miscellaneous Information 1 ea NOTE XX ; Start 09/27/16 at 14:00 Glucose (Glutose) 15 gm Q15M PRN PO DECREASED GLUCOSE; Start 09/27/16 at 14:00 Glucose (Glutose) 22.5 gm Q15M PRN PO DECREASED GLUCOSE; Start 09/27/16 at 14: 00 Dextrose (D50w Syringe) 25 ml Q15M PRN IV DECREASED GLUCOSE; Start 09/27/16 at 14:00 Dextrose (D50w Syringe) 50 ml Q15M PRN IV DECREASED GLUCOSE; Start 09/27/16 at 14:00 Glucagon (Glucagen) 1 mg Q15M PRN IM DECREASED GLUCOSE; Start 09/27/16 at 14:00 Glucose (Glutose) 15 gm Q15M PRN BUCCAL DECREASED GLUCOSE; Start 09/27/16 at 14 :00 Atropine Sulfate 0.5 mg 0.5 mg PRN PRN IV BRADYCARDIA (HR <40); Start 09/27/16 at 15:00 Dopamine HCl/ Dextrose 250 ml @ 6.375 mls/ hr TITRATE IV Last administered on 09/29/16 09:35; Admin Dose 15.938 MLS/HR; Start 09/27/16 at 15:00 Insulin Glargine (Lantus) 21 unit DAILY@20 SC Last administered on 09/28/16 20 :59; Admin Dose 21 UNIT; Start 09/28/16 at 20:00 Atorvastatin Calcium (Lipitor) 80 mg HS PO Last administered on 09/28/16 20:43 ; Admin Dose 80 MG; Start 09/28/16 at 21:00 Lisinopril 5 mg 5 mg DAILY PO Last administered on 09/29/16 12:22; Admin Dose 5 MG; Start 09/28/16 at 14:30 Sodium Chloride (NS) 1,000 ml @ 75 mls/hr [id number] IV Last administered on 09/29 06:23; Admin Dose 75 MLS/HR; Start 09/28/16 at 16:30 KIYA ENNIS September 29, 2016 14:02
[2016-09-29] MEDS: INSULIN GLARGINE [LANtus] 3 ML PEN SC SCH (20:00)
[2016-09-29] MEDS: ATORVASTATIN 80 MG TAB PO SCH (20:23)
[2016-09-30] VITALS (92 sets, daily range): BP systolic 65–148; BP diastolic 44–92; PULSE 44–97; RESP 12–28
[2016-09-30] MEDS: DOPamine-D5W 1.6 MG/ML 250 ML IV SCH ×2 (00:51→20:15)
[2016-09-30 06:19] LABS: ADD SCAN DIFF NO
[2016-09-30 06:26] LABS: BASOPHILS % 0.2 % (0.0-2.0); EOSINOPHILS % 0.1 % (0.0-7.0); HEMATOCRIT 31.6 % (42.0-52.0); HEMOGLOBIN 9.9 g/dl (14.0-18.0); LYMPHOCYTES # 1.1 10^3/ul (0.8-2.9); MEAN CORPUSCULAR HEMOGLOBIN 26.6 pg (29.0-33.0); MEAN CORPUSCULAR HGB CONC 31.3 g/dl (32.0-37.0); MEAN CORPUSCULAR VOLUME 84.9 fl (82.0-101.0); MEAN PLATELET VOLUME 12.1 fl (7.4-10.4); MONOCYTE # 0.8 10^3/ul (0.3-0.9); NEUTROPHIL # 6.6 10^3/ul (1.6-7.5); NEUTROPHILS % 77.2 % (39.0-77.0); NUCLEATED RED BLOOD CELLS% 0.2 /100WBC (0.0-0.0); PLATELET COUNT 185 10^3/UL (140-415); RED BLOOD COUNT 3.72 10^6/ul (4.70-6.10); RED CELL DISTRIBUTION WIDTH 15.7 % (11.5-14.5); WHITE BLOOD COUNT 8.6 10^3/ul (4.8-10.8)
[2016-09-30 06:56] LABS: CALCIUM 7.7 mg/dl (8.4-10.2); CREATININE 9.52 mg/dl (0.61-1.24); POTASSIUM 4.6 mmol/L (3.5-5.1)
[2016-09-30] MEDS: INSULIN ASPART [NOVOLOG] 3 ML PEN SC SCH ×7 (07:35→18:15)
[2016-09-30] MEDS: ALBUTEROL/IPRATROPIUM (NEB) 3 ML AMP INH SCH ×3 (07:56→20:59)
--- NOTE | 2016-09-30 08:21 | SP ---
DATE OF PROCEDURE: 09/27/2016 INDICATIONS FOR THE PROCEDURE: ST elevation myocardial infarction. PROCEDURES PERFORMED: 1. Selective left and right coronary angiography. 2. Left ventriculography with left ventricular pressure measurement with left heart catheterization . 3. Complex coronary intervention with stent of the right coronary artery with 2.75 x 16 mm and 2.5 x 12 mm drug-eluting stent. 4. Intracoronary nitroglycerin. 5. Supervised procedural sedation. 6. Fluoroscopy. PROCEDURE DETAILS: After informed consent, the patient was brought to cardiac catheterization lab. The patient arrived into the ER with an ST elevation myocardial infarction in inferior lead, had br adycardia in the ER. The patient has been explained with son in detail regarding the procedure and procedural complications. The patient and son both understood. The patient was brought to cardiac catheterization lab. In supine position right radial artery was prepped and draped and accessed wit h a 6-[place] Slender sheath. With guiding catheter, entered into the ascending aorta over 0.0 35 wire and engaged in the right coronary artery, found to have a distal RCA acute thrombotic occlus ion. Successful wired with Runthrough wire and entered through the lesion and predilatation w as performed with a 2.5 x 12 mm balloon. Followed by that, we successfully stented over the wire wi th 2.75 x 16 mm drug-eluting stent at 6 atmospheres. After that, the patient had no reflow. Intrac oronary nitroglycerin was performed, reflow improved. Followed by that, there was another distal le brigido into RPL, which was predilated with 2.5 x 12 mm noncompliant balloon. Followed by that, stente d with a 2.5 x 12 mm drug-eluting stent. Followed by that, the patient's heart rate went down in th e procedure. Atropine was given x2. The patient's heart rate came up. Dobutamine was started for blood pressure support. The flow has been improved in the right coronary artery. Procedure was com pleted without any complication. Followed by that, EBU guiding catheter was entered over the 0.035 wire, exchanged , entered into the left main and left ventricular angiography was performed. F ollowed by that, pigtail was exchanged with the EBU, entered into LV and LV pressure and LV gram was performed. CORONARY FINDINGS: 1. Right coronary artery had proximal to mid moderate diffuse disease distal 100% occluded thrombot ic lesion. 2. Left main: Mild diffuse disease. 3. Left anterior descending artery: Proximal segment has 25% stenosis followed by mid distal LAD m ild diffuse disease. 4. Left circumflex artery: Proximal segment mild diffuse disease. There is a large OM coming out from the mid segment with the proximal segment has 60% stenosis, followed by a large OM, [place] circ umflex going into the OM2 with mild diffuse disease. LEFT VENTRICULAR FINDINGS: LVEDP is 34 mmHg. LVEF is 55% to 60%. CONCLUSION: 1. Acute thrombotic occlusion of the right coronary artery. Successful percutaneous coronary inter vention of the right coronary artery x2 with 2.75 x 16 mm and 2.5 x 12 mm drug-eluting stent. 2. There is nonobstructive coronary artery disease in circumflex, 60% OM1 stenosis. RECOMMENDATIONS: 1. Aspirin and Plavix at least for 1 year. 2. ICU admit. 3. Continue dopamine at 5 mcg and try to taper it off. 4. A 2D echocardiography. 5. Hemodialysis. Dr. Huerta has been consulted. Dictated By: HUNTER BASSETT MD ML/NTS Conf#: [id number] DID#: [id number]
[2016-09-30] MEDS: SOD CHLORIDE 0.9% 1,000 ML IV SCH (08:53)
[2016-09-30] MEDS: ASPIRIN (EC) 81 MG TAB PO SCH (08:54)
[2016-09-30] MEDS: LISINOPRIL 5 MG TAB PO SCH (08:54)
[2016-09-30] MEDS: CLOPIDOGREL 75 MG TAB PO SCH (08:54)
[2016-09-30] MEDS: HEPARIN 5,000 UNIT/0.5 ML VIAL SC SCH ×2 (08:55→23:03)
--- NOTE | 2016-09-30 09:58 | PN ---
Date/Time of Note Date/Time of Note DATE: 09/30/16 TIME: 09:57 Assessment/Plan VTE Prophylaxis VTE Prophylaxis Intervention: SCD's Lines/Catheters IV C[facility] Type [facility] Peripheral IV Urinary Cath still in place: No Assessment/Plan Chief Complaint/Hosp Course 70 yo M with pmhx ESRD admitted for chest pain found to have STEMI, sp PCI x 2 from cardiology service, and bradycardia now sp PM placement 5. by cardiology #STEMI and bradycardia: Dr Lundy/cardiology service following. Cont acei, asa/plavix, statin defer weaning of dopamine and IVFs to cardiology #ESRD: renal following #dispo: ICU v floor as per cardiology. Will get PT involved to aid in discharge planning. Pt lives at home with #DVT prophx: SCDs #DM2: cont basal/bolus insulin-->titrate as per DM educator rec #FEN: cardiac diet Plan of care dw pt and his son Problems: Subjective 24 Hr Interval Summary Free Text/Dictation Pt doing ok this morning. Reliant on PM to remain out of heart block. Exam/Review of Systems Vital Signs Vitals Vital Signs Date Time Temp Pulse Resp B/P Pulse Ox O2 Delivery O2 Flow Rate FiO2 09/30/16 08:00 81 09/30/16 07:57 24 96 Nasal Cannula 4.0 09/30/16 06:00 106/62 09/30/16 04:00 98.3 Intake and Output 09/29/16 09/29/16 09/30/16 15:00 23:00 07:00 Intake Total 1207.44 ml 1040.72 ml 581 ml Output Total 0 ml 0 ml 0 ml Balance 1207.44 ml 1040.72 ml 581 ml Exam laying in bed, nad no mrg lungs clear abd soft no le edema no rashes responds to questions appropriately in italian Results Result Diagram: 09/30/16 0600 09/30/16 0600 Results 24 hrs Laboratory Tests Test 09/29/16 12:13 09/29/16 17:16 09/29/16 20:22 09/30/16 06:00 Bedside Glucose 169 92 83 White Blood Count 8.6 Red Blood Count 3.72 L Hemoglobin 9.9 L Hematocrit 31.6 L Mean Corpuscular Volume 84.9 Mean Corpuscular Hemoglobin 26.6 L Mean Corpuscular Hemoglobin Concent 31.3 L Red Cell Distribution Width 15.7 H Platelet Count 185 Mean Platelet Volume 12.1 H Neutrophils % 77.2 H Lymphocytes % 13.0 L Monocytes % 9.0 Eosinophils % 0.1 Basophils % 0.2 Nucleated Red Blood Cells % 0.2 H Neutrophils # 6.6 Lymphocytes # 1.1 Monocytes # 0.8 Eosinophils # 0.0 Basophils # 0.0 Nucleated Red Blood Cells # 0.0 Sodium Level 134 L Potassium Level 4.6 Chloride Level 101 Carbon Dioxide Level 20 L Anion Gap 18 H Blood Urea Nitrogen 81 H Creatinine 9.52 #H Glucose Level 105 # Calcium Level 7.7 L Test 09/30/16 08:05 Bedside Glucose 163 Medications Medications Current Medications Aspirin (Halfprin) 81 mg DAILY PO Last administered on 09/30/16 08:54; Admin Dose 81 MG; Start 09/28/16 at 09:00 Clopidogrel Bisulfate (plaVIX) 75 mg DAILY PO Last administered on 09/30/16 08 :54; Admin Dose 75 MG; Start 09/28/16 at 09:00 Ondansetron HCl (Zofran Inj) 4 mg Q6H PRN IV NAUSEA AND/OR VOMITING Last administered on 09/28/16 19:53; Admin Dose 4 MG; Start 09/27/16 at 13:00 Acetaminophen (Tylenol Tab) 650 mg Q6H PRN PO PAIN LEVEL 1-3 OR FEVER; Start at 13:30 Acetaminophen (Tylenol Supp) 650 mg Q6H PRN PA PAIN LEVEL 1-3 OR FEVER; Start 09/27/16 at 13:30 Acetaminophen/ Hydrocodone Bitart ([place] (5/325)) 1 tab Q6H PRN PO MODERATE PAIN LEVEL 4-6 Last administered on 09/28/16 20:43; Admin Dose 1 TAB; Start at 13:30 Acetaminophen/ Hydrocodone Bitart ([place] (5/325)) 2 tab Q6H PRN PO SEVERE PAIN LEVEL 7-10; Start 09/27/16 at 13:30 Morphine Sulfate (morphine) 2 mg Q4H PRN IV SEVERE PAIN LEVEL 7-10; Start 09/27 at 13:30 Docusate Sodium (Colace) 100 mg Q12H PRN PO CONSTIPATION Last administered on 05:41; Admin Dose 100 MG; Start 09/27/16 at 13:30 Magnesium Hydroxide (Milk Of Mag) 30 ml DAILY PRN PO CONSTIPATION; Start at 13:30 Bisacodyl (Dulcolax Supp) 10 mg DAILY PRN PA CONSTIPATION Last administered on 09/30/16 05:41; Admin Dose 10 MG; Start 09/27/16 at 13:30 Heparin Sodium (Porcine) (Heparin (5000 Units/0.5 ml)) 5,000 unit Q12 SC Last administered on 09/30/16 08:55; Admin Dose 5,000 UNIT; Start 09/27/16 at 21:00 Nitroglycerin (Nitroglycerin (Sl Tab) 0.4 Mg) 1 tab Q5M PRN SL CHEST PAIN; Start 09/27/16 at 13:30 Miscellaneous Information 1 ea NOTE XX ; Start 09/27/16 at 14:00 Glucose (Glutose) 15 gm Q15M PRN PO DECREASED GLUCOSE; Start 09/27/16 at 14:00 Glucose (Glutose) 22.5 gm Q15M PRN PO DECREASED GLUCOSE; Start 09/27/16 at 14: 00 Dextrose (D50w Syringe) 25 ml Q15M PRN IV DECREASED GLUCOSE; Start 09/27/16 at 14:00 Dextrose (D50w Syringe) 50 ml Q15M PRN IV DECREASED GLUCOSE; Start 09/27/16 at 14:00 Glucagon (Glucagen) 1 mg Q15M PRN IM DECREASED GLUCOSE; Start 09/27/16 at 14:00 Glucose (Glutose) 15 gm Q15M PRN BUCCAL DECREASED GLUCOSE; Start 09/27/16 at 14 :00 Atropine Sulfate 0.5 mg 0.5 mg PRN PRN IV BRADYCARDIA (HR <40); Start 09/27/16 at 15:00 Dopamine HCl/ Dextrose 250 ml @ 6.375 mls/ hr TITRATE IV Last administered on 09/30/16 00:51; Admin Dose 9.563 MLS/HR; Start 09/27/16 at 15:00 Insulin Glargine (Lantus) 21 unit DAILY@20 SC Last administered on 09/28/16 20 :59; Admin Dose 21 UNIT; Start 09/28/16 at 20:00 Atorvastatin Calcium (Lipitor) 80 mg HS PO Last administered on 09/29/16 20:23 ; Admin Dose 80 MG; Start 09/28/16 at 21:00 Lisinopril 5 mg 5 mg DAILY PO Last administered on 09/30/16 08:54; Admin Dose 5 MG; Start 09/28/16 at 14:30 Sodium Chloride (NS) 1,000 ml @ 75 mls/hr [id number] IV Last administered on 09/30 08:53; Admin Dose 75 MLS/HR; Start 09/28/16 at 16:30 AMARILIS CONTRERAS MD September 30, 2016 09:58 AMARILIS CONTRERAS MD September 30, 2016 09:58
--- NOTE | 2016-09-30 15:09 | RADRPT ---
Vent Rate: 33 bpm RR Interval: 0 msec [place] Interval: 0 msec QRS Duration: 116 msec QT Interval: 566 msec QTC Interval: 418 msec P-R-T [place]: 12 - 24 - 59 degrees Complete heart block ST elevation, consider inferior injury or acute infarct ACUTE [place] Consider right ventricular involvement in acute inferior infarct Abnormal ECG Electronically Signed By: Moe Joy [phone]
--- NOTE | 2016-09-30 15:14 | CONS ---
Date/Time of Note Date/Time of Note DATE: 09/30/16 TIME: 15:07 Assessment/Plan Assessment/Plan Additional Assessment/Plan 1. Acute ST-elevation myocardial infarction, status post cardiac catheterization with 2 stents placed in the right coronary artery. 2. End-stage renal disease on hemodialysis 3 times a week. 3. Hypertension. 4. Diabetes mellitus type 2. 5. Bradycardia, severe, status post atropine in ICU., on temporarty pacemaker PLAN: pt is still on low dose dopamine S/p HD today 2.1 L removed BP stable plan is to titrate dopamine gtt to off pt regular schedule fo r HD is , and Thursday will conitnue to follow up on patient Consultation Date/Type/Reason Admit Date/Time September 27, 2016 at 12:23 Initial Consult Date Type of Consultation: NEPHROLOGY 24 HR Interval Summary Free Text/Dictation pt is on dopamine gtt, on temporary pacemaker, S/p HD today Exam/Review of Systems Vital Signs Vitals Vital Signs Date Time Temp Pulse Resp B/P Pulse Ox O2 Delivery O2 Flow Rate FiO2 09/30/16 13:58 81 22 96 Nasal Cannula 4.0 09/30/16 10:30 91/52 09/30/16 08:00 99.2 Intake and Output 09/29/16 09/29/16 09/30/16 15:00 23:00 07:00 Intake Total 1207.44 ml 1040.72 ml 665.563 ml Output Total 0 ml 0 ml 0 ml Balance 1207.44 ml 1040.72 ml 665.563 ml Exam Constitutional: alert Psych: no complaints Head: normocephalic Neck: supple Respiratory: clear to auscultation, diminished breath sounds Cardiovascular: nl pulses, regular rate and rhythm Gastrointestinal: non-tender, soft Musculoskeletal: nl extremities to inspection Extremities: normal pulses Neurological: SERIALS LIBRARIAN II-XII intact Results Result Diagram: 09/30/16 0600 09/30/16 0600 Results 24 hrs Laboratory Tests Test 09/29/16 17:16 09/29/16 20:22 09/30/16 06:00 09/30/16 08:05 Bedside Glucose 92 83 163 White Blood Count 8.6 Red Blood Count 3.72 L Hemoglobin 9.9 L Hematocrit 31.6 L Mean Corpuscular Volume 84.9 Mean Corpuscular Hemoglobin 26.6 L Mean Corpuscular Hemoglobin Concent 31.3 L Red Cell Distribution Width 15.7 H Platelet Count 185 Mean Platelet Volume 12.1 H Neutrophils % 77.2 H Lymphocytes % 13.0 L Monocytes % 9.0 Eosinophils % 0.1 Basophils % 0.2 Nucleated Red Blood Cells % 0.2 H Neutrophils # 6.6 Lymphocytes # 1.1 Monocytes # 0.8 Eosinophils # 0.0 Basophils # 0.0 Nucleated Red Blood Cells # 0.0 Sodium Level 134 L Potassium Level 4.6 Chloride Level 101 Carbon Dioxide Level 20 L Anion Gap 18 H Blood Urea Nitrogen 81 H Creatinine 9.52 #H Glucose Level 105 # Calcium Level 7.7 L Medications Medications Current Medications Aspirin (Halfprin) 81 mg DAILY PO Last administered on 09/30/16 08:54; Admin Dose 81 MG; Start 09/28/16 at 09:00 Clopidogrel Bisulfate (plaVIX) 75 mg DAILY PO Last administered on 09/30/16 08 :54; Admin Dose 75 MG; Start 09/28/16 at 09:00 Ondansetron HCl (Zofran Inj) 4 mg Q6H PRN IV NAUSEA AND/OR VOMITING Last administered on 09/28/16 19:53; Admin Dose 4 MG; Start 09/27/16 at 13:00 Acetaminophen (Tylenol Tab) 650 mg Q6H PRN PO PAIN LEVEL 1-3 OR FEVER; Start at 13:30 Acetaminophen (Tylenol Supp) 650 mg Q6H PRN [place] PAIN LEVEL 1-3 OR FEVER; Start 09/27/16 at 13:30 Acetaminophen/ Hydrocodone Bitart ([place] (5/325)) 1 tab Q6H PRN PO MODERATE PAIN LEVEL 4-6 Last administered on 09/28/16 20:43; Admin Dose 1 TAB; Start at 13:30 Acetaminophen/ Hydrocodone Bitart ([place] (5/325)) 2 tab Q6H PRN PO SEVERE PAIN LEVEL 7-10; Start 09/27/16 at 13:30 Morphine Sulfate (morphine) 2 mg Q4H PRN IV SEVERE PAIN LEVEL 7-10; Start 09/27 at 13:30 Docusate Sodium (Colace) 100 mg Q12H PRN PO CONSTIPATION Last administered on 05:41; Admin Dose 100 MG; Start 09/27/16 at 13:30 Magnesium Hydroxide (Milk Of Mag) 30 ml DAILY PRN PO CONSTIPATION; Start at 13:30 Bisacodyl (Dulcolax Supp) 10 mg DAILY PRN [place] CONSTIPATION Last administered on 09/30/16 05:41; Admin Dose 10 MG; Start 09/27/16 at 13:30 Heparin Sodium (Porcine) (Heparin (5000 Units/0.5 ml)) 5,000 unit Q12 SC Last administered on 09/30/16 08:55; Admin Dose 5,000 UNIT; Start 09/27/16 at 21:00 Nitroglycerin (Nitroglycerin (Sl Tab) 0.4 Mg) 1 tab Q5M PRN SL CHEST PAIN; Start 09/27/16 at 13:30 Miscellaneous Information 1 ea NOTE XX ; Start 09/27/16 at 14:00 Glucose (Glutose) 15 gm Q15M PRN PO DECREASED GLUCOSE; Start 09/27/16 at 14:00 Glucose (Glutose) 22.5 gm Q15M PRN PO DECREASED GLUCOSE; Start 09/27/16 at 14: 00 Dextrose (D50w Syringe) 25 ml Q15M PRN IV DECREASED GLUCOSE; Start 09/27/16 at 14:00 Dextrose (D50w Syringe) 50 ml Q15M PRN IV DECREASED GLUCOSE; Start 09/27/16 at 14:00 Glucagon (Glucagen) 1 mg Q15M PRN IM DECREASED GLUCOSE; Start 09/27/16 at 14:00 Glucose (Glutose) 15 gm Q15M PRN BUCCAL DECREASED GLUCOSE; Start 09/27/16 at 14 :00 Atropine Sulfate 0.5 mg 0.5 mg PRN PRN IV BRADYCARDIA (HR <40); Start 09/27/16 at 15:00 Dopamine HCl/ Dextrose 250 ml @ 6.375 mls/ hr TITRATE IV Last administered on 09/30/16 00:51; Admin Dose 9.563 MLS/HR; Start 09/27/16 at 15:00 Atorvastatin Calcium (Lipitor) 80 mg HS PO Last administered on 09/29/16 20:23 ; Admin Dose 80 MG; Start 09/28/16 at 21:00 Lisinopril (Zestril) 5 mg DAILY PO Last administered on 5/30/17at 08:54; Admin Dose 5 MG; Start 09/28/16 at 14:30 Insulin Glargine (Lantus) 15 unit DAILY@20 SC ; Start 09/30/16 at 20:00 Polyethylene Glycol (Miralax) 17 gm DAILY PO ; Start 09/30/16 at 15:00 RAYNE FITCH MD September 30, 2016 15:14
--- NOTE | 2016-09-30 18:13 | CONS ---
Date/Time of Note Date/Time of Note DATE: 09/30/16 TIME: 18:09 Consult Date/Type/Reason Admit Date/Time September 27, 2016 at 12:23 Initial Consult Date 06/30/2016 Type of Consultation: Inter Card Objective Vital Signs Date Time Temp Pulse Resp B/P Pulse Ox O2 Delivery O2 Flow Rate FiO2 09/30/16 16:00 81 09/30/16 15:15 4.0 09/30/16 13:58 22 96 Nasal Cannula 09/30/16 10:30 91/52 09/30/16 08:00 99.2 Intake and Output 09/29/16 09/29/16 09/30/16 15:00 23:00 07:00 Intake Total 1207.44 ml 1040.72 ml 665.563 ml Output Total 0 ml 0 ml 0 ml Balance 1207.44 ml 1040.72 ml 665.563 ml Results/Medications Result Diagram: 09/30/16 0600 09/30/16 0600 Results 24 hrs Laboratory Tests Test 09/29/16 20:22 09/30/16 06:00 09/30/16 08:05 09/30/16 15:48 Bedside Glucose 83 163 146 White Blood Count 8.6 Red Blood Count 3.72 L Hemoglobin 9.9 L Hematocrit 31.6 L Mean Corpuscular Volume 84.9 Mean Corpuscular Hemoglobin 26.6 L Mean Corpuscular Hemoglobin Concent 31.3 L Red Cell Distribution Width 15.7 H Platelet Count 185 Mean Platelet Volume 12.1 H Neutrophils % 77.2 H Lymphocytes % 13.0 L Monocytes % 9.0 Eosinophils % 0.1 Basophils % 0.2 Nucleated Red Blood Cells % 0.2 H Neutrophils # 6.6 Lymphocytes # 1.1 Monocytes # 0.8 Eosinophils # 0.0 Basophils # 0.0 Nucleated Red Blood Cells # 0.0 Sodium Level 134 L Potassium Level 4.6 Chloride Level 101 Carbon Dioxide Level 20 L Anion Gap 18 H Blood Urea Nitrogen 81 H Creatinine 9.52 #H Glucose Level 105 # Calcium Level 7.7 L Medications Current Medications Aspirin (Halfprin) 81 mg DAILY PO Last administered on 09/30/16 08:54; Admin Dose 81 MG; Start 09/28/16 at 09:00 Clopidogrel Bisulfate (plaVIX) 75 mg DAILY PO Last administered on 09/30/16 08 :54; Admin Dose 75 MG; Start 09/28/16 at 09:00 Ondansetron HCl (Zofran Inj) 4 mg Q6H PRN IV NAUSEA AND/OR VOMITING Last administered on 09/28/16 19:53; Admin Dose 4 MG; Start 09/27/16 at 13:00 Acetaminophen (Tylenol Tab) 650 mg Q6H PRN PO PAIN LEVEL 1-3 OR FEVER; Start at 13:30 Acetaminophen (Tylenol Supp) 650 mg Q6H PRN [place] PAIN LEVEL 1-3 OR FEVER; Start 09/27/16 at 13:30 Acetaminophen/ Hydrocodone Bitart ([place] (5/325)) 1 tab Q6H PRN PO MODERATE PAIN LEVEL 4-6 Last administered on 09/28/16 20:43; Admin Dose 1 TAB; Start at 13:30 Acetaminophen/ Hydrocodone Bitart ([place] (5/325)) 2 tab Q6H PRN PO SEVERE PAIN LEVEL 7-10; Start 09/27/16 at 13:30 Morphine Sulfate (morphine) 2 mg Q4H PRN IV SEVERE PAIN LEVEL 7-10; Start 09/27 at 13:30 Docusate Sodium (Colace) 100 mg Q12H PRN PO CONSTIPATION Last administered on 05:41; Admin Dose 100 MG; Start 09/27/16 at 13:30 Magnesium Hydroxide (Milk Of Mag) 30 ml DAILY PRN PO CONSTIPATION; Start at 13:30 Bisacodyl (Dulcolax Supp) 10 mg DAILY PRN [place] CONSTIPATION Last administered on 09/30/16 05:41; Admin Dose 10 MG; Start 09/27/16 at 13:30 Heparin Sodium (Porcine) (Heparin (5000 Units/0.5 ml)) 5,000 unit Q12 SC Last administered on 09/30/16 08:55; Admin Dose 5,000 UNIT; Start 09/27/16 at 21:00 Nitroglycerin (Nitroglycerin (Sl Tab) 0.4 Mg) 1 tab Q5M PRN SL CHEST PAIN; Start 09/27/16 at 13:30 Miscellaneous Information 1 ea NOTE XX ; Start 09/27/16 at 14:00 Glucose (Glutose) 15 gm Q15M PRN PO DECREASED GLUCOSE; Start 09/27/16 at 14:00 Glucose (Glutose) 22.5 gm Q15M PRN PO DECREASED GLUCOSE; Start 09/27/16 at 14: 00 Dextrose (D50w Syringe) 25 ml Q15M PRN IV DECREASED GLUCOSE; Start 09/27/16 at 14:00 Dextrose (D50w Syringe) 50 ml Q15M PRN IV DECREASED GLUCOSE; Start 09/27/16 at 14:00 Glucagon (Glucagen) 1 mg Q15M PRN IM DECREASED GLUCOSE; Start 09/27/16 at 14:00 Glucose (Glutose) 15 gm Q15M PRN BUCCAL DECREASED GLUCOSE; Start 09/27/16 at 14 :00 Atropine Sulfate 0.5 mg 0.5 mg PRN PRN IV BRADYCARDIA (HR <40); Start 09/27/16 at 15:00 Dopamine HCl/ Dextrose 250 ml @ 6.375 mls/ hr TITRATE IV Last administered on 09/30/16 00:51; Admin Dose 9.563 MLS/HR; Start 09/27/16 at 15:00 Atorvastatin Calcium (Lipitor) 80 mg HS PO Last administered on 09/29/16 20:23 ; Admin Dose 80 MG; Start 09/28/16 at 21:00 Lisinopril (Zestril) 5 mg DAILY PO Last administered on 09/30/16 08:54; Admin Dose 5 MG; Start 09/28/16 at 14:30 Insulin Glargine (Lantus) 15 unit DAILY@20 SC ; Start 09/30/16 at 20:00 Polyethylene Glycol (Miralax) 17 gm DAILY PO ; Start 09/30/16 at 15:00 Assessment/Plan Chief Complaint/Hosp Course Pt with RCA STEMI s/p PCI of RCA x 2 BUNNY ASA Plavix Problems: Additional Assessment/Plan Pt with RCA Stemi likey 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 underwent TEmp wire placement on thursday. due to severe hypotention and dizziness. pt was on dopamine since then now he is off dopa and i turned down PPM yesterday and today. yesterday he was in CHB as well as today he is in CHB with going in to long wenchyback at 30s to 35s with severe dizziness and symptoms. He needs to be in ICU, We waited >72 hrs post NM to see his conduction improved but it did not. I would recomment PPM implant and will be done by Dr Hannah. I would contact Dr Barajas for PPM implant. D/W family SON in detail. HUNTER BASSETT MD September 30, 2016 18:13
[2016-09-30] MEDS: POLYETHYLENE GLYCOL 17 GM PACKET PO SCH (18:19)
[2016-09-30] MEDS: INSULIN GLARGINE [LANtus] 3 ML PEN SC SCH (20:28)
[2016-09-30] MEDS: ATORVASTATIN 80 MG TAB PO SCH ×3 (23:09→23:31)
[2016-10-01] VITALS (83 sets, daily range): BP systolic 93–172; BP diastolic 47–96; PULSE 38–88; RESP 0–25
[2016-10-01] MEDS: DOPamine-D5W 1.6 MG/ML 250 ML IV SCH ×2 (05:17→11:59)
[2016-10-01] MEDS: ONDANSETRON 4 MG INJ IV PRN (05:39)
[2016-10-01 06:41] LABS: ADD SCAN DIFF NO
[2016-10-01 07:20] LABS: CALCIUM 8.5 mg/dl (8.4-10.2); CREATININE 7.28 mg/dl (0.61-1.24); POTASSIUM 4.8 mmol/L (3.5-5.1)
[2016-10-01] MEDS: INSULIN ASPART [NOVOLOG] 3 ML PEN SC SCH ×7 (07:35→21:00)
[2016-10-01] MEDS: ALBUTEROL/IPRATROPIUM (NEB) 3 ML AMP INH SCH ×3 (07:37→20:00)
--- NOTE | 2016-10-01 07:40 | RADRPT ---
PROCEDURE: XR Chest. CLINICAL INDICATION: pain TECHNIQUE: Single portable view of the chest was obtained COMPARISON: 09/27/2016 FINDINGS: There are worsening right upper lobe and right lower lobe infiltrates. There is mild cardiomegaly w ith pulmonary vascular congestion. There is elevation of the right diaphragm. There is an external pacemaker wire overlying the right heart.. The heart, lungs and mediastinum are otherwise unchanged . . RPTAT: AA IMPRESSION: Worsening right upper lobe and right lower lobe infiltrates. Mild cardiomegaly with worsening pulmonary vascular congestion. Right-sided pacemaker wire overlying the right heart. No other significant change. .Uriel Kaufman MD, MD Date Time Electronically viewed and signed by .Uriel Kaufman MD, on 10/01/2016 07:39 .S/
[2016-10-01] MEDS: HEPARIN 5,000 UNIT/0.5 ML VIAL SC SCH ×2 (09:00→21:00)
[2016-10-01] MEDS: CLOPIDOGREL 75 MG TAB PO SCH (09:36)
[2016-10-01] MEDS: POLYETHYLENE GLYCOL 17 GM PACKET PO SCH (09:37)
[2016-10-01] MEDS: LISINOPRIL 5 MG TAB PO SCH (09:37)
[2016-10-01] MEDS: ASPIRIN (EC) 81 MG TAB PO SCH (09:37)
[2016-10-01 10:35] LABS: BASOPHILS % 0.1 % (0.0-2.0); HEMATOCRIT 34.4 % (42.0-52.0); HEMOGLOBIN 10.7 g/dl (14.0-18.0); LYMPHOCYTES # 0.8 10^3/ul (0.8-2.9); LYMPHOCYTES % 7.7 % (15.0-51.0); MEAN CORPUSCULAR HEMOGLOBIN 26.5 pg (29.0-33.0); MEAN CORPUSCULAR HGB CONC 31.1 g/dl (32.0-37.0); MEAN CORPUSCULAR VOLUME 85.1 fl (82.0-101.0); MEAN PLATELET VOLUME 11.8 fl (7.4-10.4); MONOCYTE # 0.8 10^3/ul (0.3-0.9); MONOCYTES % 8.1 % (0.0-11.0); NEUTROPHIL # 8.2 10^3/ul (1.6-7.5); NEUTROPHILS % 83.6 % (39.0-77.0); PLATELET COUNT 185 10^3/UL (140-415); RED BLOOD COUNT 4.04 10^6/ul (4.70-6.10); RED CELL DISTRIBUTION WIDTH 15.9 % (11.5-14.5); WHITE BLOOD COUNT 9.8 10^3/ul (4.8-10.8)
--- NOTE | 2016-10-01 12:04 | PN ---
Date/Time of Note Date/Time of Note DATE: 10/01/16 TIME: 12:03 Assessment/Plan VTE Prophylaxis VTE Prophylaxis Intervention: SCD's Lines/Catheters IV Catheter Type (from Nrsg): CORDIZ FOR TRANSVENOUS PA Urinary Cath still in place: No (H/D PT) Assessment/Plan Chief Complaint/Hosp Course 1 yo M with pmhx ESRD admitted for chest pain found to have STEMI, sp PCI x 2 from cardiology service, and bradycardia now sp temp PM placement 5. by cardiology, slated for permanent PM today #STEMI and bradycardia: Dr Lundy/cardiology service following. Cont acei, asa/plavix, statin defer weaning of dopamine and IVFs to cardiology #ESRD: renal following #dispo: ICU v floor as per cardiology. #DVT prophx: SCDs #DM2: cont basal/bolus insulin-->titrate as per DM educator rec #FEN: cardiac diet Problems: Subjective 24 Hr Interval Summary Free Text/Dictation Transvenous pacing less successful overnight, dopamine increased. Plan is for permanent PM placement today.l Exam/Review of Systems Vital Signs Vitals Vital Signs Date Time Temp Pulse Resp B/P Pulse Ox O2 Delivery O2 Flow Rate FiO2 10/01/16 10:13 Nasal Cannula 6.0 10/01/16 09:45 58 21 148/52 95 10/01/16 07:30 98.7 Intake and Output 09/30/16 09/30/16 10/01/16 15:00 23:00 07:00 Intake Total 674.896 ml 167.389 ml 293.058 ml Output Total 2100 ml 30 ml 30 ml Balance -1425.104 ml 137.389 ml 263.058 ml Exam laying in bed, anxious appearing, and son at bedside +mild exp wheezing no mrg abd soft no rashes Results Result Diagram: 10/01/16 0611 10/01/16 0611 Results 24 hrs Laboratory Tests Test 09/30/16 15:48 09/30/16 18:10 09/30/16 20:22 10/01/16 00:14 Bedside Glucose 146 152 147 214 Test 10/01/16 06:11 10/01/16 07:59 10/01/16 11:51 White Blood Count 9.8 Red Blood Count 4.04 L Hemoglobin 10.7 L Hematocrit 34.4 L Mean Corpuscular Volume 85.1 Mean Corpuscular Hemoglobin 26.5 L Mean Corpuscular Hemoglobin Concent 31.1 L Red Cell Distribution Width 15.9 H Platelet Count 185 Mean Platelet Volume 11.8 H Neutrophils % 83.6 H Lymphocytes % 7.7 L Monocytes % 8.1 Eosinophils % 0.0 Basophils % 0.1 Nucleated Red Blood Cells % 0.0 Neutrophils # 8.2 H Lymphocytes # 0.8 Monocytes # 0.8 Eosinophils # 0.0 Basophils # 0.0 Nucleated Red Blood Cells # 0.0 Sodium Level 133 L Potassium Level 4.8 Chloride Level 97 Carbon Dioxide Level 21 Anion Gap 20 H Blood Urea Nitrogen 53 H Creatinine 7.28 #H Glucose Level 249 #H Calcium Level 8.5 Bedside Glucose 255 H 244 H Medications Medications Current Medications Aspirin (Halfprin) 81 mg DAILY PO Last administered on 10/01/16 09:37; Admin Dose 81 MG; Start 09/28/16 at 09:00 Clopidogrel Bisulfate (plaVIX) 75 mg DAILY PO Last administered on 10/01/16 09 :36; Admin Dose 75 MG; Start 09/28/16 at 09:00 Ondansetron HCl (Zofran Inj) 4 mg Q6H PRN IV NAUSEA AND/OR VOMITING Last administered on 10/01/16 05:39; Admin Dose 4 MG; Start 09/27/16 at 13:00 Acetaminophen (Tylenol Tab) 650 mg Q6H PRN PO PAIN LEVEL 1-3 OR FEVER; Start at 13:30 Acetaminophen (Tylenol Supp) 650 mg Q6H PRN [place] PAIN LEVEL 1-3 OR FEVER; Start 09/27/16 at 13:30 Acetaminophen/ Hydrocodone Bitart ([place] (5/325)) 1 tab Q6H PRN PO MODERATE PAIN LEVEL 4-6 Last administered on 09/28/16 20:43; Admin Dose 1 TAB; Start at 13:30 Acetaminophen/ Hydrocodone Bitart ([place] (5/325)) 2 tab Q6H PRN PO SEVERE PAIN LEVEL 7-10; Start 09/27/16 at 13:30 Morphine Sulfate (morphine) 2 mg Q4H PRN IV SEVERE PAIN LEVEL 7-10; Start 09/27 at 13:30 Docusate Sodium (Colace) 100 mg Q12H PRN PO CONSTIPATION Last administered on 05:41; Admin Dose 100 MG; Start 09/27/16 at 13:30 Magnesium Hydroxide (Milk Of Mag) 30 ml DAILY PRN PO CONSTIPATION; Start at 13:30 Bisacodyl (Dulcolax Supp) 10 mg DAILY PRN [place] CONSTIPATION Last administered on 09/30/16 05:41; Admin Dose 10 MG; Start 09/27/16 at 13:30 Heparin Sodium (Porcine) (Heparin (5000 Units/0.5 ml)) 5,000 unit Q12 SC Last administered on 09/30/16 23:03; Admin Dose 5,000 UNIT; Start 09/27/16 at 21:00 Nitroglycerin (Nitroglycerin (Sl Tab) 0.4 Mg) 1 tab Q5M PRN SL CHEST PAIN; Start 09/27/16 at 13:30 Miscellaneous Information 1 ea NOTE XX ; Start 09/27/16 at 14:00 Glucose (Glutose) 15 gm Q15M PRN PO DECREASED GLUCOSE; Start 09/27/16 at 14:00 Glucose (Glutose) 22.5 gm Q15M PRN PO DECREASED GLUCOSE; Start 09/27/16 at 14: 00 Dextrose (D50w Syringe) 25 ml Q15M PRN IV DECREASED GLUCOSE; Start 09/27/16 at 14:00 Dextrose (D50w Syringe) 50 ml Q15M PRN IV DECREASED GLUCOSE; Start 09/27/16 at 14:00 Glucagon (Glucagen) 1 mg Q15M PRN IM DECREASED GLUCOSE; Start 09/27/16 at 14:00 Glucose (Glutose) 15 gm Q15M PRN BUCCAL DECREASED GLUCOSE; Start 09/27/16 at 14 :00 Atropine Sulfate 0.5 mg 0.5 mg PRN PRN IV BRADYCARDIA (HR <40); Start 09/27/16 at 15:00 Dopamine HCl/ Dextrose 250 ml @ 6.375 mls/ hr TITRATE IV Last administered on 10/01/16 11:59; Admin Dose 32 MLS/HR; Start 09/27/16 at 15:00 Atorvastatin Calcium (Lipitor) 80 mg HS PO Last administered on 09/29/16 20:23 ; Admin Dose 80 MG; Start 09/28/16 at 21:00 Lisinopril (Zestril) 5 mg DAILY PO Last administered on 10/01/16 09:37; Admin Dose 5 MG; Start 09/28/16 at 14:30 Insulin Glargine (Lantus) 15 unit DAILY@20 SC Last administered on 09/30/16 20 :28; Admin Dose 15 UNIT; Start 09/30/16 at 20:00 Polyethylene Glycol (Miralax) 17 gm DAILY PO Last administered on 10/01/16 09: 37; Admin Dose 17 GM; Start 09/30/16 at 15:00 AMARILIS CONTRERAS MD October 01, 2016 12:04
[2016-10-01] MEDS ORDERED: MINERAL OIL LIGHT 10 ML VIAL ONE (17:27)
[2016-10-01] MEDS ORDERED: LIDOCAINE 1% (STERILE-PAK) 30 ML INJ ONE (17:27)
--- NOTE | 2016-10-01 17:37 | CONS ---
Date/Time of Note Date/Time of Note DATE: 10/01/16 TIME: 17:37 Assessment/Plan Assessment/Plan Additional Assessment/Plan 1. Acute ST-elevation myocardial infarction, status post cardiac catheterization with 2 stents placed in the right coronary artery. 2. End-stage renal disease on hemodialysis 3 times a week. 3. Hypertension. 4. Diabetes mellitus type 2. 5. Bradycardia, severe, status post atropine in ICU., on temporarty pacemaker PLAN: pt is still on low dose dopamine Plan for HD tomorrow pt is schedueld for permanent pacemaker today pt regular schedule fo r HD is , and Thursday will conitnue to follow up on patient Consultation Date/Type/Reason Admit Date/Time September 27, 2016 at 12:23 Type of Consultation: Inter Card Exam/Review of Systems Vital Signs Vitals Vital Signs Date Time Temp Pulse Resp B/P Pulse Ox O2 Delivery O2 Flow Rate FiO2 10/01/16 14:58 6.0 10/01/16 14:15 56 24 127/56 94 Nasal Cannula 10/01/16 12:00 98.4 Intake and Output 09/30/16 09/30/16 10/01/16 15:00 23:00 07:00 Intake Total 674.896 ml 167.389 ml 293.058 ml Output Total 2100 ml 30 ml 30 ml Balance -1425.104 ml 137.389 ml 263.058 ml Results Result Diagram: 10/01/16 0611 10/01/16 0611 Results 24 hrs Laboratory Tests Test 09/30/16 18:10 09/30/16 20:22 10/01/16 00:14 10/01/16 06:11 Bedside Glucose 152 147 214 White Blood Count 9.8 Red Blood Count 4.04 L Hemoglobin 10.7 L Hematocrit 34.4 L Mean Corpuscular Volume 85.1 Mean Corpuscular Hemoglobin 26.5 L Mean Corpuscular Hemoglobin Concent 31.1 L Red Cell Distribution Width 15.9 H Platelet Count 185 Mean Platelet Volume 11.8 H Neutrophils % 83.6 H Lymphocytes % 7.7 L Monocytes % 8.1 Eosinophils % 0.0 Basophils % 0.1 Nucleated Red Blood Cells % 0.0 Neutrophils # 8.2 H Lymphocytes # 0.8 Monocytes # 0.8 Eosinophils # 0.0 Basophils # 0.0 Nucleated Red Blood Cells # 0.0 Sodium Level 133 L Potassium Level 4.8 Chloride Level 97 Carbon Dioxide Level 21 Anion Gap 20 H Blood Urea Nitrogen 53 H Creatinine 7.28 #H Glucose Level 249 #H Calcium Level 8.5 Test 10/01/16 07:59 10/01/16 11:51 Bedside Glucose 255 H 244 H Medications Medications Current Medications Aspirin (Halfprin) 81 mg DAILY PO Last administered on 10/01/16 09:37; Admin Dose 81 MG; Start 09/28/16 at 09:00 Clopidogrel Bisulfate (plaVIX) 75 mg DAILY PO Last administered on 10/01/16 09 :36; Admin Dose 75 MG; Start 09/28/16 at 09:00 Ondansetron HCl (Zofran Inj) 4 mg Q6H PRN IV NAUSEA AND/OR VOMITING Last administered on 10/01/16 05:39; Admin Dose 4 MG; Start 09/27/16 at 13:00 Acetaminophen (Tylenol Tab) 650 mg Q6H PRN PO PAIN LEVEL 1-3 OR FEVER; Start at 13:30 Acetaminophen (Tylenol Supp) 650 mg Q6H PRN [place] PAIN LEVEL 1-3 OR FEVER; Start 09/27/16 at 13:30 Acetaminophen/ Hydrocodone Bitart ([place] (5/325)) 1 tab Q6H PRN PO MODERATE PAIN LEVEL 4-6 Last administered on 09/28/16 20:43; Admin Dose 1 TAB; Start at 13:30 Acetaminophen/ Hydrocodone Bitart ([place] (5/325)) 2 tab Q6H PRN PO SEVERE PAIN LEVEL 7-10; Start 09/27/16 at 13:30 Morphine Sulfate (morphine) 2 mg Q4H PRN IV SEVERE PAIN LEVEL 7-10; Start 09/27 at 13:30 Docusate Sodium (Colace) 100 mg Q12H PRN PO CONSTIPATION Last administered on 05:41; Admin Dose 100 MG; Start 09/27/16 at 13:30 Magnesium Hydroxide (Milk Of Mag) 30 ml DAILY PRN PO CONSTIPATION; Start at 13:30 Bisacodyl (Dulcolax Supp) 10 mg DAILY PRN [place] CONSTIPATION Last administered on 09/30/16 05:41; Admin Dose 10 MG; Start 09/27/16 at 13:30 Heparin Sodium (Porcine) (Heparin (5000 Units/0.5 ml)) 5,000 unit Q12 SC Last administered on 09/30/16 23:03; Admin Dose 5,000 UNIT; Start 09/27/16 at 21:00 Nitroglycerin (Nitroglycerin (Sl Tab) 0.4 Mg) 1 tab Q5M PRN SL CHEST PAIN; Start 09/27/16 at 13:30 Miscellaneous Information 1 ea NOTE XX ; Start 09/27/16 at 14:00 Glucose (Glutose) 15 gm Q15M PRN PO DECREASED GLUCOSE; Start 09/27/16 at 14:00 Glucose (Glutose) 22.5 gm Q15M PRN PO DECREASED GLUCOSE; Start 09/27/16 at 14: 00 Dextrose (D50w Syringe) 25 ml Q15M PRN IV DECREASED GLUCOSE; Start 09/27/16 at 14:00 Dextrose (D50w Syringe) 50 ml Q15M PRN IV DECREASED GLUCOSE; Start 09/27/16 at 14:00 Glucagon (Glucagen) 1 mg Q15M PRN IM DECREASED GLUCOSE; Start 09/27/16 at 14:00 Glucose (Glutose) 15 gm Q15M PRN BUCCAL DECREASED GLUCOSE; Start 09/27/16 at 14 :00 Atropine Sulfate 0.5 mg 0.5 mg PRN PRN IV BRADYCARDIA (HR <40); Start 09/27/16 at 15:00 Dopamine HCl/ Dextrose 250 ml @ 6.375 mls/ hr TITRATE IV Last administered on 10/01/16 11:59; Admin Dose 32 MLS/HR; Start 09/27/16 at 15:00 Atorvastatin Calcium (Lipitor) 80 mg HS PO Last administered on 09/29/16 20:23 ; Admin Dose 80 MG; Start 09/28/16 at 21:00 Lisinopril (Zestril) 5 mg DAILY PO Last administered on 10/01/16 09:37; Admin Dose 5 MG; Start 09/28/16 at 14:30 Insulin Glargine (Lantus) 15 unit DAILY@20 SC Last administered on 09/30/16 20 :28; Admin Dose 15 UNIT; Start 09/30/16 at 20:00 Polyethylene Glycol (Miralax) 17 gm DAILY PO Last administered on 5/31/17at 09: 37; Admin Dose 17 GM; Start 09/30/16 at 15:00 RAYNE FITCH MD October 01, 2016 17:37
--- NOTE | 2016-10-01 18:40 | CONS ---
Date/Time of Note Date/Time of Note DATE: 10/01/16 TIME: 18:38 Consult Date/Type/Reason Admit Date/Time September 27, 2016 at 12:23 Initial Consult Date 06/30/2016 Type of Consultation: Inter Card Objective Vital Signs Date Time Temp Pulse Resp B/P Pulse Ox O2 Delivery O2 Flow Rate FiO2 10/01/16 18:15 69 22 142/96 95 Nasal Cannula 6.0 10/01/16 16:00 99.0 Intake and Output 09/30/16 09/30/16 10/01/16 15:00 23:00 07:00 Intake Total 674.896 ml 167.389 ml 293.058 ml Output Total 2100 ml 30 ml 30 ml Balance -1425.104 ml 137.389 ml 263.058 ml Results/Medications Result Diagram: 10/01/16 0611 10/01/16 0611 Results 24 hrs Laboratory Tests Test 09/30/16 20:22 10/01/16 00:14 10/01/16 06:11 10/01/16 07:59 Bedside Glucose 147 214 255 H White Blood Count 9.8 Red Blood Count 4.04 L Hemoglobin 10.7 L Hematocrit 34.4 L Mean Corpuscular Volume 85.1 Mean Corpuscular Hemoglobin 26.5 L Mean Corpuscular Hemoglobin Concent 31.1 L Red Cell Distribution Width 15.9 H Platelet Count 185 Mean Platelet Volume 11.8 H Neutrophils % 83.6 H Lymphocytes % 7.7 L Monocytes % 8.1 Eosinophils % 0.0 Basophils % 0.1 Nucleated Red Blood Cells % 0.0 Neutrophils # 8.2 H Lymphocytes # 0.8 Monocytes # 0.8 Eosinophils # 0.0 Basophils # 0.0 Nucleated Red Blood Cells # 0.0 Sodium Level 133 L Potassium Level 4.8 Chloride Level 97 Carbon Dioxide Level 21 Anion Gap 20 H Blood Urea Nitrogen 53 H Creatinine 7.28 #H Glucose Level 249 #H Calcium Level 8.5 Test 10/01/16 11:51 10/01/16 17:50 Bedside Glucose 244 H 198 Medications Current Medications Aspirin (Halfprin) 81 mg DAILY PO Last administered on 10/01/16 09:37; Admin Dose 81 MG; Start 09/28/16 at 09:00 Clopidogrel Bisulfate (plaVIX) 75 mg DAILY PO Last administered on 10/01/16 09 :36; Admin Dose 75 MG; Start 09/28/16 at 09:00 Ondansetron HCl (Zofran Inj) 4 mg Q6H PRN IV NAUSEA AND/OR VOMITING Last administered on 10/01/16 05:39; Admin Dose 4 MG; Start 09/27/16 at 13:00 Acetaminophen (Tylenol Tab) 650 mg Q6H PRN PO PAIN LEVEL 1-3 OR FEVER; Start at 13:30 Acetaminophen (Tylenol Supp) 650 mg Q6H PRN [place] PAIN LEVEL 1-3 OR FEVER; Start 09/27/16 at 13:30 Acetaminophen/ Hydrocodone Bitart ([place] (5/325)) 1 tab Q6H PRN PO MODERATE PAIN LEVEL 4-6 Last administered on 09/28/16 20:43; Admin Dose 1 TAB; Start at 13:30 Acetaminophen/ Hydrocodone Bitart ([place] (5/325)) 2 tab Q6H PRN PO SEVERE PAIN LEVEL 7-10; Start 09/27/16 at 13:30 Morphine Sulfate (morphine) 2 mg Q4H PRN IV SEVERE PAIN LEVEL 7-10; Start 09/27 at 13:30 Docusate Sodium (Colace) 100 mg Q12H PRN PO CONSTIPATION Last administered on 05:41; Admin Dose 100 MG; Start 09/27/16 at 13:30 Magnesium Hydroxide (Milk Of Mag) 30 ml DAILY PRN PO CONSTIPATION; Start at 13:30 Bisacodyl (Dulcolax Supp) 10 mg DAILY PRN [place] CONSTIPATION Last administered on 09/30/16 05:41; Admin Dose 10 MG; Start 09/27/16 at 13:30 Heparin Sodium (Porcine) (Heparin (5000 Units/0.5 ml)) 5,000 unit Q12 SC Last administered on 09/30/16 23:03; Admin Dose 5,000 UNIT; Start 09/27/16 at 21:00 Nitroglycerin (Nitroglycerin (Sl Tab) 0.4 Mg) 1 tab Q5M PRN SL CHEST PAIN; Start 09/27/16 at 13:30 Miscellaneous Information 1 ea NOTE XX ; Start 09/27/16 at 14:00 Glucose (Glutose) 15 gm Q15M PRN PO DECREASED GLUCOSE; Start 09/27/16 at 14:00 Glucose (Glutose) 22.5 gm Q15M PRN PO DECREASED GLUCOSE; Start 09/27/16 at 14: 00 Dextrose (D50w Syringe) 25 ml Q15M PRN IV DECREASED GLUCOSE; Start 09/27/16 at 14:00 Dextrose (D50w Syringe) 50 ml Q15M PRN IV DECREASED GLUCOSE; Start 09/27/16 at 14:00 Glucagon (Glucagen) 1 mg Q15M PRN IM DECREASED GLUCOSE; Start 09/27/16 at 14:00 Glucose (Glutose) 15 gm Q15M PRN BUCCAL DECREASED GLUCOSE; Start 09/27/16 at 14 :00 Atropine Sulfate 0.5 mg 0.5 mg PRN PRN IV BRADYCARDIA (HR <40); Start 09/27/16 at 15:00 Dopamine HCl/ Dextrose 250 ml @ 6.375 mls/ hr TITRATE IV Last administered on 10/01/16 11:59; Admin Dose 32 MLS/HR; Start 09/27/16 at 15:00 Atorvastatin Calcium (Lipitor) 80 mg HS PO Last administered on 09/29/16 20:23 ; Admin Dose 80 MG; Start 09/28/16 at 21:00 Lisinopril (Zestril) 5 mg DAILY PO Last administered on 10/01/16 09:37; Admin Dose 5 MG; Start 09/28/16 at 14:30 Insulin Glargine (Lantus) 15 unit DAILY@20 SC Last administered on 09/30/16 20 :28; Admin Dose 15 UNIT; Start 09/30/16 at 20:00 Polyethylene Glycol (Miralax) 17 gm DAILY PO Last administered on 10/01/16 09: 37; Admin Dose 17 GM; Start 09/30/16 at 15:00 Assessment/Plan Chief Complaint/Hosp Course Pt with RCA STEMI s/p PCI of RCA x 2 BUNNY ASA Plavix Problems: Additional Assessment/Plan Pt went to [facility] It will most likely convert. 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 continue dopamine right now due to hypotention. will wean off post PPM implant. had long discussion with pt family about arrhythmia and will medically manage post AR arrhythmia. If not rate controlled and stays in [facility] will consider ablation out pt. will .HUNTER Alvarez MD October 01, 2016 18:40
--- NOTE | 2016-10-01 19:37 | CONS ---
Date/Time of Note Date/Time of Note DATE: 10/01/16 TIME: 19:32 Assessment/Plan Assessment/Plan Chief Complaint/Hosp Course complete heart block Atrial flutter HTN HLD Will need a pacer implant and will then remove the temp wire out. Problems: Consultation Date/Type/Reason Admit Date/Time September 27, 2016 at 12:23 Referring Provider: HUNTER BASSETT MD Hx of Present Illness The pt is a 65 y/o male with pmh of HTN, HLD, and CAD, presented with MS and had 2 stents and had complete heart block The pt has been on a temp wire for almost 80 hrs and has not recovered. has been on pressors to keep the HR above 60 bpm. The pt has an underlying atrial flutter and complete heart block. The pt will need a pacemaker. Psychological: no complaints Social History Smoking Status: Former smoker (Quit 50 years ago) Drug Use: none Exam/Review of Systems Vital Signs Vitals Vital Signs Date Time Temp Pulse Resp B/P Pulse Ox O2 Delivery O2 Flow Rate FiO2 10/01/16 18:15 69 22 142/96 95 Nasal Cannula 6.0 10/01/16 16:00 99.0 Intake and Output 09/30/16 09/30/16 10/01/16 15:00 23:00 07:00 Intake Total 674.896 ml 167.389 ml 293.058 ml Output Total 2100 ml 30 ml 30 ml Balance -1425.104 ml 137.389 ml 263.058 ml Results Result Diagram: 10/01/16 0611 10/01/16 0611 Results 24 hrs Laboratory Tests Test 09/30/16 20:22 10/01/16 00:14 10/01/16 06:11 10/01/16 07:59 Bedside Glucose 147 214 255 H White Blood Count 9.8 Red Blood Count 4.04 L Hemoglobin 10.7 L Hematocrit 34.4 L Mean Corpuscular Volume 85.1 Mean Corpuscular Hemoglobin 26.5 L Mean Corpuscular Hemoglobin Concent 31.1 L Red Cell Distribution Width 15.9 H Platelet Count 185 Mean Platelet Volume 11.8 H Neutrophils % 83.6 H Lymphocytes % 7.7 L Monocytes % 8.1 Eosinophils % 0.0 Basophils % 0.1 Nucleated Red Blood Cells % 0.0 Neutrophils # 8.2 H Lymphocytes # 0.8 Monocytes # 0.8 Eosinophils # 0.0 Basophils # 0.0 Nucleated Red Blood Cells # 0.0 Sodium Level 133 L Potassium Level 4.8 Chloride Level 97 Carbon Dioxide Level 21 Anion Gap 20 H Blood Urea Nitrogen 53 H Creatinine 7.28 #H Glucose Level 249 #H Calcium Level 8.5 Test 10/01/16 11:51 10/01/16 17:50 Bedside Glucose 244 H 198 Medications Medications Current Medications Aspirin (Halfprin) 81 mg DAILY PO Last administered on 10/01/16 09:37; Admin Dose 81 MG; Start 09/28/16 at 09:00 Clopidogrel Bisulfate (plaVIX) 75 mg DAILY PO Last administered on 10/01/16 09 :36; Admin Dose 75 MG; Start 09/28/16 at 09:00 Ondansetron HCl (Zofran Inj) 4 mg Q6H PRN IV NAUSEA AND/OR VOMITING Last administered on 10/01/16 05:39; Admin Dose 4 MG; Start 09/27/16 at 13:00 Acetaminophen (Tylenol Tab) 650 mg Q6H PRN PO PAIN LEVEL 1-3 OR FEVER; Start at 13:30 Acetaminophen (Tylenol Supp) 650 mg Q6H PRN AR PAIN LEVEL 1-3 OR FEVER; Start 09/27/16 at 13:30 Acetaminophen/ Hydrocodone Bitart ([place] (5/325)) 1 tab Q6H PRN PO MODERATE PAIN LEVEL 4-6 Last administered on 09/28/16 20:43; Admin Dose 1 TAB; Start at 13:30 Acetaminophen/ Hydrocodone Bitart ([place] (5/325)) 2 tab Q6H PRN PO SEVERE PAIN LEVEL 7-10; Start 09/27/16 at 13:30 Morphine Sulfate (morphine) 2 mg Q4H PRN IV SEVERE PAIN LEVEL 7-10; Start 09/27 at 13:30 Docusate Sodium (Colace) 100 mg Q12H PRN PO CONSTIPATION Last administered on 05:41; Admin Dose 100 MG; Start 09/27/16 at 13:30 Magnesium Hydroxide (Milk Of Mag) 30 ml DAILY PRN PO CONSTIPATION; Start at 13:30 Bisacodyl (Dulcolax Supp) 10 mg DAILY PRN AR CONSTIPATION Last administered on 09/30/16 05:41; Admin Dose 10 MG; Start 09/27/16 at 13:30 Heparin Sodium (Porcine) (Heparin (5000 Units/0.5 ml)) 5,000 unit Q12 SC Last administered on 09/30/16 23:03; Admin Dose 5,000 UNIT; Start 09/27/16 at 21:00 Nitroglycerin (Nitroglycerin (Sl Tab) 0.4 Mg) 1 tab Q5M PRN SL CHEST PAIN; Start 09/27/16 at 13:30 Miscellaneous Information 1 ea NOTE XX ; Start 09/27/16 at 14:00 Glucose (Glutose) 15 gm Q15M PRN PO DECREASED GLUCOSE; Start 09/27/16 at 14:00 Glucose (Glutose) 22.5 gm Q15M PRN PO DECREASED GLUCOSE; Start 09/27/16 at 14: 00 Dextrose (D50w Syringe) 25 ml Q15M PRN IV DECREASED GLUCOSE; Start 09/27/16 at 14:00 Dextrose (D50w Syringe) 50 ml Q15M PRN IV DECREASED GLUCOSE; Start 09/27/16 at 14:00 Glucagon (Glucagen) 1 mg Q15M PRN IM DECREASED GLUCOSE; Start 09/27/16 at 14:00 Glucose (Glutose) 15 gm Q15M PRN BUCCAL DECREASED GLUCOSE; Start 09/27/16 at 14 :00 Atropine Sulfate 0.5 mg 0.5 mg PRN PRN IV BRADYCARDIA (HR <40); Start 09/27/16 at 15:00 Dopamine HCl/ Dextrose 250 ml @ 6.375 mls/ hr TITRATE IV Last administered on 10/01/16 11:59; Admin Dose 32 MLS/HR; Start 09/27/16 at 15:00 Atorvastatin Calcium (Lipitor) 80 mg HS PO Last administered on 09/29/16 20:23 ; Admin Dose 80 MG; Start 09/28/16 at 21:00 Lisinopril (Zestril) 5 mg DAILY PO Last administered on 10/01/16 09:37; Admin Dose 5 MG; Start 09/28/16 at 14:30 Insulin Glargine (Lantus) 15 unit DAILY@20 SC Last administered on 09/30/16 20 :28; Admin Dose 15 UNIT; Start 09/30/16 at 20:00 Polyethylene Glycol (Miralax) 17 gm DAILY PO Last administered on 10/01/16t 09: 37; Admin Dose 17 GM; Start 09/30/16 at 15:00 ARETHA HOLDER MD October 01, 2016 19:37
[2016-10-01] MEDS ORDERED: LIDOCAINE 2%/EPI 30 ML INJ ONE (20:09)
[2016-10-01] MEDS ORDERED: FENTAnyl 50 MCG/ML VIAL ONE (20:09)
[2016-10-01] MEDS ORDERED: MIDAZOLAM 1 MG/ML 2 ML INJ ONE (20:09)
[2016-10-01] MEDS ORDERED: ONDANSETRON 4 MG INJ ONE (20:14)
[2016-10-01] MEDS ORDERED: POLYMYXIN/BACITRACIN 1L IRRIG IRR ONE (20:30)
[2016-10-01] MEDS ORDERED: MINERAL OIL LIGHT 10 ML VIAL TOP ONE (20:30)
[2016-10-01] MEDS ORDERED: THROMBIN 5000 UNIT VIAL ONE (20:38)
[2016-10-01] MEDS ORDERED: morphine 2 MG INJ IV PRN (21:00)
--- NOTE | 2016-10-01 21:54 | OPR ---
DATE OF OPERATION: 10/01/2016 INDICATION FOR THE PROCEDURE: Complete heart block requiring temporary pacemaker wire placement and requiring continuous pacing for the last 80 hours. The patient's temporary pacemaker wire was checked on a daily basis in order to see whether the robert ent is dependent on the wire or not, and the patient has been dependent. The patient's condition salguero s not improved. As a result, the patient will require a permanent pacemaker implant. REFERRING PHYSICIAN: Rae Lundy MD Thank you, Dr. Lundy, for allowing me to participate in the care of your patient. The patient also had an underlying atrial flutter. During the procedure, the patient spontaneously converted to sinus rhythm. The patient is now being paced continuously in the ventricle due to the fact that the patient will r equire 100% pacing secondary to complete heart block. PROCEDURE: 1. Implantation of a dual-chamber MRI pacemaker, [employer]. 2. Implantation of right atrial lead. 3. Implantation of right ventricular lead. 4. Right atrial pacing recording. 5. Right ventricular pacing recording. 6. Catheter placement from the right subclavian vessel into the superior vena cava. 7. Lead placement into right atrium. 8. Lead placement into right ventricle. 9. Right atrial pacing recording. 10. Right ventricular pacing recording. 11. O2 saturation monitoring and blood pressure monitoring continuously. 12. Contrast ____ of the right subclavian vessel. 13. Defibrillator pad placements anteriorly, posteriorly. 14. Temporary pacemaker wire removal. 15. Central line removal and central line placement. DESCRIPTION OF PROCEDURE: After informed consent was obtained by the patient, the patient was broug ht to the cardiac operating room, where the patient's right chest and neck region was prepped and dr aped in usual sterile fashion. Note that the patient had a fistula on the left arm secondary to warren al failure and hemodialysis. Following this, the patient then had subclavian stick with an introduc er needle. Following this, a sheath as well as a lead was then placed into the right atrium and rig ht ventricle, and right atrial, right ventricular pacing recording was performed. Following this, l rosas were secured onto the muscle and the fascia. Device was brought to the field. Device and lead s were connected to each other and placed into the pocket. Pocket was sutured using 2-0 Vicryl and 4-0 Vicryl after the pocket was formed. No complications occurred, and following this, the pocket was sutured and dressing was applied, and the patient left the cardiac operating room in stable condition. IMPLANTED MATERIAL: [employer] MRI-safe dual-chamber pacemaker. The patient's device was an [employer] MRI [id number], serial #[id number]. Right atrial lead is [employer] Tendril MRI LPA 1200M/46 cm. Serial number is [id number]. The right ventricular lead is [employer] Tendril MRI LPA 1200M/52 cm. Serial number is [id number]. Pacing recording was performed. The patient was in sinus rhythm at this point. Sensing was 1.4 mil livolts, impedance of 410 ohms, threshold of 0.5 volts at 0.5 milliseconds. Right ventricular R-waves were 8.8 millivolts, impedance of 600 ohms, threshold of 0.75 volts at 0.5 msec. IMPRESSION: Successful implantation of a dual-chamber MRI-safe pacemaker in a patient who is depend ent. Dictated By: ARETHA HOLDER MD, LP/SEAN Conf#: [id number] DID#: [id number]
[2016-10-01] MEDS: ATORVASTATIN 80 MG TAB PO SCH ×2 (22:15→22:24)
[2016-10-01] MEDS: CEFAZOLIN 1 GM/50 ML (PMX) 50 ML IVPB SCH (22:15)
[2016-10-01] MEDS: INSULIN GLARGINE [LANtus] 3 ML PEN SC SCH (22:23)
[2016-10-02] VITALS (55 sets, daily range): BP systolic 82–143; BP diastolic 46–85; PULSE 73–104; RESP 15–22
[2016-10-02] MEDS: DOPamine-D5W 1.6 MG/ML 250 ML IV SCH ×2 (01:10→06:14)
[2016-10-02 03:35] LABS: ADD SCAN DIFF NO
[2016-10-02 03:38] LABS: BASOPHILS % 0.2 % (0.0-2.0); EOSINOPHILS % 0.2 % (0.0-7.0); HEMATOCRIT 31.9 % (42.0-52.0); LYMPHOCYTES # 0.8 10^3/ul (0.8-2.9); LYMPHOCYTES % 7.9 % (15.0-51.0); MEAN CORPUSCULAR HEMOGLOBIN 26.6 pg (29.0-33.0); MEAN CORPUSCULAR HGB CONC 31.3 g/dl (32.0-37.0); MEAN CORPUSCULAR VOLUME 84.8 fl (82.0-101.0); MEAN PLATELET VOLUME 11.4 fl (7.4-10.4); MONOCYTE # 0.9 10^3/ul (0.3-0.9); MONOCYTES % 9.2 % (0.0-11.0); NEUTROPHIL # 8.2 10^3/ul (1.6-7.5); NEUTROPHILS % 81.7 % (39.0-77.0); PLATELET COUNT 193 10^3/UL (140-415); RED BLOOD COUNT 3.76 10^6/ul (4.70-6.10); RED CELL DISTRIBUTION WIDTH 15.8 % (11.5-14.5)
[2016-10-02 03:59] LABS: CALCIUM 8.3 mg/dl (8.4-10.2); CREATININE 8.63 mg/dl (0.61-1.24); POTASSIUM 4.7 mmol/L (3.5-5.1)
--- NOTE | 2016-10-02 07:30 | RADRPT ---
PROCEDURE: XR Chest. CLINICAL INDICATION: post pacer TECHNIQUE: Single frontal view of the chest was obtained. COMPARISON: Chest x-ray from 10/01/2016 at 06:03 hours FINDINGS: A right-sided pacemaker is again noted. There is stable moderate cardiomegaly and elevation of the right hemidiaphragm. There is moderate pulmonary vascular congestion which has increased. Opacities in the right lung are slightly less prominent than they were on the prior chest x-ray from 10/01/2016 at 06:03 hours. There is no significant pleural effusion or pneumothorax. IMPRESSION: Moderate pulmonary vascular congestion which has increased. Slightly decreased prominence of patchy opacities in the right lung zone with infiltrates. Stable cardiomegaly and right-sided pacemaker. RPTAT: EE Physician Kamilla Date Time Electronically viewed and signed by Physician Kamilla on 10/02/2016 07:30 /
[2016-10-02] MEDS: INSULIN ASPART [NOVOLOG] 3 ML PEN SC SCH ×7 (07:35→21:00)
[2016-10-02] MEDS: ALBUTEROL/IPRATROPIUM (NEB) 3 ML AMP INH SCH ×3 (08:23→19:36)
--- NOTE | 2016-10-02 08:59 | RADRPT ---
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 Physician: YARA KISER Quality: Technically Difficult Study Procedures: Transthoracic echocardiogram with complete 2D, M-Mode, and doppler examination. Indications: STEMI. 2D/M Mode Doppler Measurement Value Normal Ranges Measurement Value Normal Ranges AoR Diam MM 3.0 cm LVOT Peak Carlos 1.0 m/sec ACS MM 1.9 cm LVOT Peak PG 4.0 mmHg LVIDd 2D 4.3 3.5 - 5.6 cm MV E Peak Carlos 1.1 m/sec LVIDs 2D 3.0 2.1 - 4.1 cm MV A Peak Carlos 0.7 m/sec LVPWd 2D 1.1 0.6 - 1.1 cm MV E/A 1.7 IVSd 2D 1.4 0.6 - 1.1 cm MV Decel Time 213 msec EDV 2D 83.6 cm3 MV Decel Edmunds 5 ESV 2D 27.8 cm3 MV E/A 1.7 LA Dimen 2D 3.9 2.3 - 4.0 cm PV Peak Carlos 0.6 m/sec PV Peak PG 2.0 mmHg Findings Left Ventricle: Normal left ventricular systolic function. Normal left ventricular cavity size. Mild hypertrophy of the basal septum. Ejection fraction is visually estimated at 55 %. Tissue Doppler/Mitral Doppler indices are within normal limits. E/E`=12. Right Ventricle: Normal right ventricular size. Left Atrium: The left atrium is normal in size. Right Atrium: The right atrium is normal in size. Atrial Septum: Not well visualized. Mitral Valve: Normal appearance of the mitral valve. Mild mitral leaflet calcification. Mild to moderate mitral valve regurgitation. Aortic Valve: Normal appearance of the aortic valve. No significant aortic stenosis or insufficiency. Tricuspid Valve: Normal appearance of the tricuspid valve. No evidence of tricuspid regurgitation. Pulmonic Valve: Normal pulmonic valve appearance. There is trace pulmonic regurgitation. Pericardium: Normal pericardium with no significant pericardial effusion. Aorta: Normal aortic root. IVC: Normal size and normal respiratory collapse consistent with normal right atrial pressure. Pulmonary Artery: Normal pulmonary artery size. Conclusions Normal left ventricular systolic function. Normal left ventricular cavity size. Mild hypertrophy of the basal septum. Ejection fraction is visually estimated at 55 %. Tissue Doppler/Mitral Doppler indices are within normal limits. E/E`=12. The left atrium is normal in size. Normal right ventricular size. Normal appearance of the mitral valve. Mild mitral leaflet calcification. Mild to moderate mitral valve regurgitation. Normal appearance of the aortic valve. No significant aortic stenosis or insufficiency. Normal appearance of the tricuspid valve. No evidence of tricuspid regurgitation. Electronically Signed By: Rae Lundy 02-Oct-2016 08:59:07 -0700 Patient Name: WENDY NGUYEN Study Date: 28-Sep-2016 [id number]
[2016-10-02] MEDS: LISINOPRIL 5 MG TAB PO SCH (09:00)
--- NOTE | 2016-10-02 09:07 | RADRPT ---
PROCEDURE: X-ray fluoroscopy guidance CLINICAL INDICATION: PACEMAKER PLACEMENT TECHNIQUE: Fluoroscopic guidance was utilized for intraoperative procedure. COMPARISON: None. FINDINGS: Fluoroscopic guidance was utilized for intraoperative procedure. 135 seconds of fluoroscopy time wa s utilized for the procedure. 2 x-ray images were obtained during the procedure. There is no evidence of a pneumothorax. IMPRESSION: X-ray fluoroscopic guidance utilized for intraoperative procedure. No pneumothorax. Please see procedure note details. RPTAT: EE Physician Kamilla Date Time Electronically viewed and signed by Physician Kamilla on 10/02/2016 09:07 /
[2016-10-02] MEDS: CLOPIDOGREL 75 MG TAB PO SCH (09:18)
[2016-10-02] MEDS: ASPIRIN (EC) 81 MG TAB PO SCH (09:18)
[2016-10-02] MEDS: HEPARIN 5,000 UNIT/0.5 ML VIAL SC SCH ×2 (09:20→21:22)
[2016-10-02] MEDS: POLYETHYLENE GLYCOL 17 GM PACKET PO SCH (09:21)
--- NOTE | 2016-10-02 09:39 | PN ---
Date/Time of Note Date/Time of Note DATE: 10/02/16 TIME: 09:30 Assessment/Plan VTE Prophylaxis VTE Prophylaxis Intervention: SCD's Lines/Catheters IV Catheter Type (from Nrs): Peripheral IV Urinary Cath still in place: No (H/D PT) Assessment/Plan Chief Complaint/Hosp Course 70 yo M with pmhx ESRD admitted for chest pain found to have STEMI, sp PCI x 2 from cardiology service, and bradycardia now sp temp PM placement 5.29 by cardiology, permanent PM 5.31. Also with an episode of AFib/flutter last night #STEMI and bradycardia: Dr Lundy/cardiology service following. Cont acei, asa/plavix, statin defer weaning of dopamine and IVFs to cardiology #afib/flutter as per cardiology defer ATC decision to cardiology service #ESRD: renal following #dispo: ICU v floor as per cardiology. #DVT prophx: SCDs #DM2: cont basal/bolus insulin-->titrate as per DM educator rec #FEN: cardiac diet Problems: Subjective 24 Hr Interval Summary Free Text/Dictation Pt in good spirits this morning, appears more relaxed. Exam/Review of Systems Vital Signs Vitals Vital Signs Date Time Temp Pulse Resp B/P Pulse Ox O2 Delivery O2 Flow Rate FiO2 10/02/16 08:24 89 21 99 Nasal Cannula 5.0 10/02/16 07:00 112/57 10/02/16 02:00 98.6 Intake and Output 10/01/16 10/01/16 10/02/16 15:00 23:00 07:00 Intake Total 159.21 ml 50 ml 346.00 ml Output Total 10 ml Balance 159.21 ml 40 ml 346.00 ml Exam nad, pleasant, sitting up in bed, appears relaxed no mrg lungs clear abd soft no le edema no rashes Results Result Diagram: 10/02/165 10/02/16 024 Results 24 hrs Laboratory Tests Test 10/01/16 11:51 10/01/16 17:50 10/01/16 22:14 10/02/16 01:30 Bedside Glucose 244 H 198 137 112 Test 10/02/16 02:45 10/02/16 08:26 White Blood Count 10.0 Red Blood Count 3.76 L Hemoglobin 10.0 L Hematocrit 31.9 L Mean Corpuscular Volume 84.8 Mean Corpuscular Hemoglobin 26.6 L Mean Corpuscular Hemoglobin Concent 31.3 L Red Cell Distribution Width 15.8 H Platelet Count 193 Mean Platelet Volume 11.4 H Neutrophils % 81.7 H Lymphocytes % 7.9 L Monocytes % 9.2 Eosinophils % 0.2 Basophils % 0.2 Nucleated Red Blood Cells % 0.0 Neutrophils # 8.2 H Lymphocytes # 0.8 Monocytes # 0.9 Eosinophils # 0.0 Basophils # 0.0 Nucleated Red Blood Cells # 0.0 Sodium Level 140 Potassium Level 4.7 Chloride Level 103 Carbon Dioxide Level 24 Anion Gap 18 H Blood Urea Nitrogen 69 H Creatinine 8.63 H Glucose Level 147 # Calcium Level 8.3 L Bedside Glucose 102 Medications Medications Current Medications Aspirin (Halfprin) 81 mg DAILY PO Last administered on 10/02/16 09:18; Admin Dose 81 MG; Start 09/28/16 at 09:00 Clopidogrel Bisulfate (plaVIX) 75 mg DAILY PO Last administered on 10/02/16 09: 18; Admin Dose 75 MG; Start 09/28/16 at 09:00 Ondansetron HCl (Zofran Inj) 4 mg Q6H PRN IV NAUSEA AND/OR VOMITING Last administered on 10/01/16 05:39; Admin Dose 4 MG; Start 09/27/16 at 13:00 Acetaminophen (Tylenol Tab) 650 mg Q6H PRN PO PAIN LEVEL 1-3 OR FEVER; Start at 13:30 Acetaminophen (Tylenol Supp) 650 mg Q6H PRN OR PAIN LEVEL 1-3 OR FEVER; Start 09/27/16 at 13:30 Acetaminophen/ Hydrocodone Bitart ([place] (5/325)) 1 tab Q6H PRN PO MODERATE PAIN LEVEL 4-6 Last administered on 09/28/16 20:43; Admin Dose 1 TAB; Start at 13:30 Acetaminophen/ Hydrocodone Bitart ([place] (5/325)) 2 tab Q6H PRN PO SEVERE PAIN LEVEL 7-10; Start 09/27/16 at 13:30 Morphine Sulfate (morphine) 2 mg Q4H PRN IV SEVERE PAIN LEVEL 7-10; Start 09/27 at 13:30 Docusate Sodium (Colace) 100 mg Q12H PRN PO CONSTIPATION Last administered on 05:41; Admin Dose 100 MG; Start 09/27/16 at 13:30 Magnesium Hydroxide (Milk Of Mag) 30 ml DAILY PRN PO CONSTIPATION; Start at 13:30 Bisacodyl (Dulcolax Supp) 10 mg DAILY PRN OR CONSTIPATION Last administered on 09/30/16 05:41; Admin Dose 10 MG; Start 09/27/16 at 13:30 Heparin Sodium (Porcine) (Heparin (5000 Units/0.5 ml)) 5,000 unit Q12 SC Last administered on 10/02/16 09:20; Admin Dose 5,000 UNIT; Start 09/27/16 at 21:00 Nitroglycerin (Nitroglycerin (Sl Tab) 0.4 Mg) 1 tab Q5M PRN SL CHEST PAIN; Start 09/27/16 at 13:30 Miscellaneous Information 1 ea NOTE XX ; Start 09/27/16 at 14:00 Glucose (Glutose) 15 gm Q15M PRN PO DECREASED GLUCOSE; Start 09/27/16 at 14:00 Glucose (Glutose) 22.5 gm Q15M PRN PO DECREASED GLUCOSE; Start 09/27/16 at 14: 00 Dextrose (D50w Syringe) 25 ml Q15M PRN IV DECREASED GLUCOSE; Start 09/27/16 at 14:00 Dextrose (D50w Syringe) 50 ml Q15M PRN IV DECREASED GLUCOSE; Start 09/27/16 at 14:00 Glucagon (Glucagen) 1 mg Q15M PRN IM DECREASED GLUCOSE; Start 09/27/16 at 14:00 Glucose (Glutose) 15 gm Q15M PRN BUCCAL DECREASED GLUCOSE; Start 09/27/16 at 14 :00 Atropine Sulfate 0.5 mg 0.5 mg PRN PRN IV BRADYCARDIA (HR <40); Start 09/27/16 at 15:00 Dopamine HCl/ Dextrose 250 ml @ 6.375 mls/ hr TITRATE IV Last administered on 10/02/16 06:14; Admin Dose 6.375 MLS/HR; Start 09/27/16 at 15:00 Atorvastatin Calcium (Lipitor) 80 mg HS PO Last administered on 10/01/16 22:24 ; Admin Dose 80 MG; Start 09/28/16 at 21:00 Lisinopril (Zestril) 5 mg DAILY PO Last administered on 10/01/16 09:37; Admin Dose 5 MG; Start 09/28/16 at 14:30 Insulin Glargine (Lantus) 15 unit DAILY@20 SC Last administered on 10/01/16 22 :23; Admin Dose 15 UNIT; Start 09/30/16 at 20:00 Polyethylene Glycol (Miralax) 17 gm DAILY PO Last administered on 10/02/16 09: 21; Admin Dose 17 GM; Start 09/30/16 at 15:00 Morphine Sulfate 2 mg 2 mg Q2H PRN IV FOR NON CARDIAC PAIN (4-10); Start at 21:00 Cefazolin Sodium (Ancef 1 Gm/50 ml (Pmx)) 50 ml @ 100 mls/hr Q24H IVPB Last administered on 10/01/16 22:15; Admin Dose 100 MLS/HR; Start 10/01/16 at 22:00 AMARILIS CONTRERAS MD Oct 02, 2016 09:39
--- NOTE | 2016-10-02 17:37 | CONS ---
Date/Time of Note Date/Time of Note DATE: 10/02/16 TIME: 17:35 Assessment/Plan Assessment/Plan Additional Assessment/Plan 1. Acute ST-elevation myocardial infarction, status post cardiac catheterization with 2 stents placed in the right coronary artery. 2. End-stage renal disease on hemodialysis 3 times a week. 3. Hypertension. 4. Diabetes mellitus type 2. 5. Bradycardia, severe, status post atropine in ICU.,s/p pacemaker placement PLAN: pt is still on low dose dopamine s/p HD today 2.5 L removed, s/p pacemaker today pt regular schedule fo r HD is , and Thursday - next HD plan on Thursday will conitnue to follow up on patient Consultation Date/Type/Reason Admit Date/Time September 27, 2016 at 12:23 Type of Consultation: NEPHROLOGy Referring Provider: HUNTER BASSETT MD 24 HR Interval Summary Free Text/Dictation s/p Pacemaker placement, S/p HD today 2.5 L removed, still inICU Exam/Review of Systems Vital Signs Vitals Vital Signs Date Time Temp Pulse Resp B/P Pulse Ox O2 Delivery O2 Flow Rate FiO2 10/02/16 17:30 5.0 10/02/16 17:00 82 17 88/46 100 10/02/16 16:00 98.6 10/02/16 08:24 Nasal Cannula Intake and Output 10/01/16 10/01/16 10/02/16 15:00 23:00 07:00 Intake Total 159.21 ml 50 ml 346.00 ml Output Total 10 ml Balance 159.21 ml 40 ml 346.00 ml Exam Constitutional: alert Psych: no complaints Head: normocephalic Neck: supple Respiratory: clear to auscultation, diminished breath sounds Cardiovascular: nl pulses, regular rate and rhythm Gastrointestinal: non-tender, soft Musculoskeletal: nl extremities to inspection Extremities: normal pulses, + right pacemaker, Left AVF Neurological: [employer] II-XII intact Results Result Diagram: 10/02/16 0245 10/02/16 0245 Results 24 hrs Laboratory Tests Test 10/01/16 17:50 10/01/16 22:14 10/02/16 01:30 10/02/16 02:45 Bedside Glucose 198 137 112 White Blood Count 10.0 Red Blood Count 3.76 L Hemoglobin 10.0 L Hematocrit 31.9 L Mean Corpuscular Volume 84.8 Mean Corpuscular Hemoglobin 26.6 L Mean Corpuscular Hemoglobin Concent 31.3 L Red Cell Distribution Width 15.8 H Platelet Count 193 Mean Platelet Volume 11.4 H Neutrophils % 81.7 H Lymphocytes % 7.9 L Monocytes % 9.2 Eosinophils % 0.2 Basophils % 0.2 Nucleated Red Blood Cells % 0.0 Neutrophils # 8.2 H Lymphocytes # 0.8 Monocytes # 0.9 Eosinophils # 0.0 Basophils # 0.0 Nucleated Red Blood Cells # 0.0 Sodium Level 140 Potassium Level 4.7 Chloride Level 103 Carbon Dioxide Level 24 Anion Gap 18 H Blood Urea Nitrogen 69 H Creatinine 8.63 H Glucose Level 147 # Calcium Level 8.3 L Test 10/02/16 08:26 10/02/16 11:59 Bedside Glucose 102 112 Medications Medications Current Medications Aspirin (Halfprin) 81 mg DAILY PO Last administered on 10/02/16 09:18; Admin Dose 81 MG; Start 09/28/16 at 09:00 Clopidogrel Bisulfate (plaVIX) 75 mg DAILY PO Last administered on 10/02/16 09: 18; Admin Dose 75 MG; Start 09/28/16 at 09:00 Ondansetron HCl (Zofran Inj) 4 mg Q6H PRN IV NAUSEA AND/OR VOMITING Last administered on 10/01/16 05:39; Admin Dose 4 MG; Start 09/27/16 at 13:00 Acetaminophen (Tylenol Tab) 650 mg Q6H PRN PO PAIN LEVEL 1-3 OR FEVER; Start at 13:30 Acetaminophen (Tylenol Supp) 650 mg Q6H PRN [place] PAIN LEVEL 1-3 OR FEVER; Start 09/27/16 at 13:30 Acetaminophen/ Hydrocodone Bitart ([place] (5/325)) 1 tab Q6H PRN PO MODERATE PAIN LEVEL 4-6 Last administered on 09/28/16 20:43; Admin Dose 1 TAB; Start at 13:30 Acetaminophen/ Hydrocodone Bitart ([place] (5/325)) 2 tab Q6H PRN PO SEVERE PAIN LEVEL 7-10; Start 09/27/16 at 13:30 Morphine Sulfate (morphine) 2 mg Q4H PRN IV SEVERE PAIN LEVEL 7-10; Start 09/27 at 13:30 Docusate Sodium (Colace) 100 mg Q12H PRN PO CONSTIPATION Last administered on 05:41; Admin Dose 100 MG; Start 09/27/16 at 13:30 Magnesium Hydroxide (Milk Of Mag) 30 ml DAILY PRN PO CONSTIPATION; Start at 13:30 Bisacodyl (Dulcolax Supp) 10 mg DAILY PRN [place] CONSTIPATION Last administered on 09/30/16 05:41; Admin Dose 10 MG; Start 09/27/16 at 13:30 Heparin Sodium (Porcine) (Heparin (5000 Units/0.5 ml)) 5,000 unit Q12 SC Last administered on 10/02/16 09:20; Admin Dose 5,000 UNIT; Start 09/27/16 at 21:00 Nitroglycerin (Nitroglycerin (Sl Tab) 0.4 Mg) 1 tab Q5M PRN SL CHEST PAIN; Start 09/27/16 at 13:30 Miscellaneous Information 1 ea NOTE XX ; Start 09/27/16 at 14:00 Glucose (Glutose) 15 gm Q15M PRN PO DECREASED GLUCOSE; Start 09/27/16 at 14:00 Glucose (Glutose) 22.5 gm Q15M PRN PO DECREASED GLUCOSE; Start 09/27/16 at 14: 00 Dextrose (D50w Syringe) 25 ml Q15M PRN IV DECREASED GLUCOSE; Start 09/27/16 at 14:00 Dextrose (D50w Syringe) 50 ml Q15M PRN IV DECREASED GLUCOSE; Start 09/27/16 at 14:00 Glucagon (Glucagen) 1 mg Q15M PRN IM DECREASED GLUCOSE; Start 09/27/16 at 14:00 Glucose (Glutose) 15 gm Q15M PRN BUCCAL DECREASED GLUCOSE; Start 09/27/16 at 14 :00 Atropine Sulfate 0.5 mg 0.5 mg PRN PRN IV BRADYCARDIA (HR <40); Start 09/27/16 at 15:00 Dopamine HCl/ Dextrose 250 ml @ 6.375 mls/ hr TITRATE IV Last administered on 10/02/16 06:14; Admin Dose 6.375 MLS/HR; Start 09/27/16 at 15:00 Atorvastatin Calcium (Lipitor) 80 mg HS PO Last administered on 10/01/16 22:24 ; Admin Dose 80 MG; Start 09/28/16 at 21:00 Lisinopril (Zestril) 5 mg DAILY PO Last administered on 10/01/16 09:37; Admin Dose 5 MG; Start 09/28/16 at 14:30 Insulin Glargine (Lantus) 15 unit DAILY@20 SC Last administered on 10/01/16 22 :23; Admin Dose 15 UNIT; Start 09/30/16 at 20:00 Polyethylene Glycol (Miralax) 17 gm DAILY PO Last administered on 10/02/16 09: 21; Admin Dose 17 GM; Start 09/30/16 at 15:00 Morphine Sulfate 2 mg 2 mg Q2H PRN IV FOR NON CARDIAC PAIN (4-10); Start at 21:00 Cefazolin Sodium (Ancef 1 Gm/50 ml (Pmx)) 50 ml @ 100 mls/hr Q24H IVPB Last administered on 10/01/16 22:15; Admin Dose 100 MLS/HR; Start 10/01/16 at 22:00 RAYNE FITCH MD Oct 02, 2016 17:37
--- NOTE | 2016-10-02 17:43 | RADRPT ---
Vent Rate: 81 bpm RR Interval: 0 msec [place] Interval: 212 msec QRS Duration: 156 msec QT Interval: 458 msec QTC Interval: 532 msec P-R-T [place] Range: 25 - 0 - 26 degrees Electronic ventricular pacemaker Electronically Signed By: Jf Bauman [id number]
--- NOTE | 2016-10-02 17:55 | CONS ---
Date/Time of Note Date/Time of Note DATE: 10/02/16 TIME: 17:53 Consult Date/Type/Reason Admit Date/Time September 27, 2016 at 12:23 Initial Consult Date 06/30/2016 Type of Consultation: Cardiology Ordering Provider: HUNTER BASSETT MD Objective Vital Signs Date Time Temp Pulse Resp B/P Pulse Ox O2 Delivery O2 Flow Rate FiO2 10/02/16 17:30 5.0 10/02/16 17:00 82 17 88/46 100 10/02/16 16:00 98.6 10/02/16 08:24 Nasal Cannula Intake and Output 10/01/16 10/01/16 10/02/16 15:00 23:00 07:00 Intake Total 159.21 ml 50 ml 346.00 ml Output Total 10 ml Balance 159.21 ml 40 ml 346.00 ml Results/Medications Result Diagram: 10/02/16 0245 10/02/16 0245 Results 24 hrs Laboratory Tests Test 10/01/16 22:14 10/02/16 01:30 10/02/16 02:45 10/02/16 08:26 Bedside Glucose 137 112 102 White Blood Count 10.0 Red Blood Count 3.76 L Hemoglobin 10.0 L Hematocrit 31.9 L Mean Corpuscular Volume 84.8 Mean Corpuscular Hemoglobin 26.6 L Mean Corpuscular Hemoglobin Concent 31.3 L Red Cell Distribution Width 15.8 H Platelet Count 193 Mean Platelet Volume 11.4 H Neutrophils % 81.7 H Lymphocytes % 7.9 L Monocytes % 9.2 Eosinophils % 0.2 Basophils % 0.2 Nucleated Red Blood Cells % 0.0 Neutrophils # 8.2 H Lymphocytes # 0.8 Monocytes # 0.9 Eosinophils # 0.0 Basophils # 0.0 Nucleated Red Blood Cells # 0.0 Sodium Level 140 Potassium Level 4.7 Chloride Level 103 Carbon Dioxide Level 24 Anion Gap 18 H Blood Urea Nitrogen 69 H Creatinine 8.63 H Glucose Level 147 # Calcium Level 8.3 L Test 10/02/16 11:59 10/02/16 17:40 Bedside Glucose 112 88 Medications Current Medications Aspirin (Halfprin) 81 mg DAILY PO Last administered on 10/02/16 09:18; Admin Dose 81 MG; Start 09/28/16 at 09:00 Clopidogrel Bisulfate (plaVIX) 75 mg DAILY PO Last administered on 10/02/16 09: 18; Admin Dose 75 MG; Start 09/28/16 at 09:00 Ondansetron HCl (Zofran Inj) 4 mg Q6H PRN IV NAUSEA AND/OR VOMITING Last administered on 10/01/16 05:39; Admin Dose 4 MG; Start 09/27/16 at 13:00 Acetaminophen (Tylenol Tab) 650 mg Q6H PRN PO PAIN LEVEL 1-3 OR FEVER; Start at 13:30 Acetaminophen (Tylenol Supp) 650 mg Q6H PRN [place] PAIN LEVEL 1-3 OR FEVER; Start 09/27/16 at 13:30 Acetaminophen/ Hydrocodone Bitart ([place] (5/325)) 1 tab Q6H PRN PO MODERATE PAIN LEVEL 4-6 Last administered on 09/28/16 20:43; Admin Dose 1 TAB; Start at 13:30 Acetaminophen/ Hydrocodone Bitart ([place] (5/325)) 2 tab Q6H PRN PO SEVERE PAIN LEVEL 7-10; Start 09/27/16 at 13:30 Morphine Sulfate (morphine) 2 mg Q4H PRN IV SEVERE PAIN LEVEL 7-10; Start 09/27 at 13:30 Docusate Sodium (Colace) 100 mg Q12H PRN PO CONSTIPATION Last administered on 05:41; Admin Dose 100 MG; Start 09/27/16 at 13:30 Magnesium Hydroxide (Milk Of Mag) 30 ml DAILY PRN PO CONSTIPATION; Start at 13:30 Bisacodyl (Dulcolax Supp) 10 mg DAILY PRN [place] CONSTIPATION Last administered on 09/30/16 05:41; Admin Dose 10 MG; Start 09/27/16 at 13:30 Heparin Sodium (Porcine) (Heparin (5000 Units/0.5 ml)) 5,000 unit Q12 SC Last administered on 10/02/16 09:20; Admin Dose 5,000 UNIT; Start 09/27/16 at 21:00 Nitroglycerin (Nitroglycerin (Sl Tab) 0.4 Mg) 1 tab Q5M PRN SL CHEST PAIN; Start 09/27/16 at 13:30 Miscellaneous Information 1 ea NOTE XX ; Start 09/27/16 at 14:00 Glucose (Glutose) 15 gm Q15M PRN PO DECREASED GLUCOSE; Start 09/27/16 at 14:00 Glucose (Glutose) 22.5 gm Q15M PRN PO DECREASED GLUCOSE; Start 09/27/16 at 14: 00 Dextrose (D50w Syringe) 25 ml Q15M PRN IV DECREASED GLUCOSE; Start 09/27/16 at 14:00 Dextrose (D50w Syringe) 50 ml Q15M PRN IV DECREASED GLUCOSE; Start 09/27/16 at 14:00 Glucagon (Glucagen) 1 mg Q15M PRN IM DECREASED GLUCOSE; Start 09/27/16 at 14:00 Glucose (Glutose) 15 gm Q15M PRN BUCCAL DECREASED GLUCOSE; Start 09/27/16 at 14 :00 Atropine Sulfate 0.5 mg 0.5 mg PRN PRN IV BRADYCARDIA (HR <40); Start 09/27/16 at 15:00 Dopamine HCl/ Dextrose 250 ml @ 6.375 mls/ hr TITRATE IV Last administered on 10/02/16 06:14; Admin Dose 6.375 MLS/HR; Start 09/27/16 at 15:00 Atorvastatin Calcium (Lipitor) 80 mg HS PO Last administered on 10/01/16 22:24 ; Admin Dose 80 MG; Start 09/28/16 at 21:00 Lisinopril (Zestril) 5 mg DAILY PO Last administered on 10/01/16 09:37; Admin Dose 5 MG; Start 09/28/16 at 14:30 Insulin Glargine (Lantus) 15 unit DAILY@20 SC Last administered on 10/01/16 22 :23; Admin Dose 15 UNIT; Start 09/30/16 at 20:00 Polyethylene Glycol (Miralax) 17 gm DAILY PO Last administered on 10/02/16 09: 21; Admin Dose 17 GM; Start 09/30/16 at 15:00 Morphine Sulfate 2 mg 2 mg Q2H PRN IV FOR NON CARDIAC PAIN (4-10); Start at 21:00 Cefazolin Sodium (Ancef 1 Gm/50 ml (Pmx)) 50 ml @ 100 mls/hr Q24H IVPB Last administered on 10/01/16 22:15; Admin Dose 100 MLS/HR; Start 10/01/16 at 22:00 Assessment/Plan Chief Complaint/Hosp Course Pt with RCA STEMI s/p PCI of RCA x 2 BUNNY ASA Plavix Problems: Additional Assessment/Plan S/P [facility] PPM dual chamber MRI safe. Base rate at 60. right now he is in complete heart block with A sence and V paced at 90bpm. stable doing fine pt will be of dobutamine had HD today plan to get PT tx out of ICU. will /.HUNTER Alvarze MD Oct 02, 2016 17:55
--- NOTE | 2016-10-02 17:58 | RADRPT ---
Echocardiogram Report Patient Name: WENDY NGUYEN Gender: Male Date: 1945 Study Date: 02-Oct-2016 Batt Packer: Jesus [facility] Location: 113 Ref. Physician: RAE LUNDY Quality: Adequate Procedures: Transthoracic echocardiogram with complete 2D, M-Mode, and doppler examination. Indications: Acute Myocardial Infarction, Hypotension. 2D/M Mode Doppler Measurement Value Normal Ranges Measurement Value Normal Ranges LVIDd 2D 5.5 3.5 - 5.6 cm AV Peak Carlos 1.1 m/sec LVIDs 2D 3.9 2.1 - 4.1 cm AV Peak PG 5.2 mmHg LVPWd 2D 1.1 0.6 - 1.1 cm LVOT Peak Carlos 1.3 m/sec IVSd 2D 1.1 0.6 - 1.1 cm LVOT Peak PG 6.4 mmHg AoR Diam 2D 2.8 2.0 - 3.7 cm MV E Peak Carlos 1.3 m/sec EDV 2D 144.8 cm3 MV A Peak Carlos 1.0 m/sec ESV 2D 57.2 cm3 MV E/A 1.3 LA Dimen 2D 4.4 2.3 - 4.0 cm MV Decel Time 138 msec MV Decel Leon 9 MV E/A 1.3 Findings Left Ventricle: Normal left ventricular systolic function. Normal left ventricular cavity size. Normal left ventricular wall thickness. Ejection fraction is visually estimated at 60 %. Tissue Doppler/Mitral Doppler indices are consistent with impaired relaxation (Stage I diastolic dysfunction). Right Ventricle: Normal right ventricular size. Normal right ventricular systolic function. Left Atrium: The left atrium is normal in size. Right Atrium: The right atrium is normal in size. Mitral Valve: Mild mitral leaflet calcification. Moderate mitral valve regurgitation. Aortic Valve: Normal appearance of the aortic valve. No significant aortic stenosis or insufficiency. Tricuspid Valve: Tricuspid valve not well visualized. There is trace tricuspid regurgitation. Pericardium: Normal pericardium with no significant pericardial effusion. Aorta: Normal aortic root. IVC: Normal size and poor respiratory collapse consistent with elevated right atrial pressure. Conclusions Normal left ventricular systolic function. Normal left ventricular cavity size. Normal left ventricular wall thickness. Ejection fraction is visually estimated at 60 %. Tissue Doppler/Mitral Doppler indices are consistent with impaired relaxation (Stage I diastolic dysfunction). Mild mitral leaflet calcification. Moderate mitral valve regurgitation. Normal appearance of the aortic valve. No significant aortic stenosis or insufficiency. Tricuspid valve not well visualized. There is trace tricuspid regurgitation. Electronically Signed By: Rae Lundy 02-Oct-2016 17:57:21 -0700 Patient Name: WENDY NGUYEN Study Date: 02-Oct-2016 [id number]
[2016-10-02] MEDS ORDERED: SOD CHLORIDE 0.9% 250 ML IV PRN (19:30)
[2016-10-02] MEDS: INSULIN GLARGINE [LANtus] 3 ML PEN SC SCH (21:22)
[2016-10-02] MEDS: ATORVASTATIN 80 MG TAB PO SCH (21:23)
[2016-10-02] MEDS: CEFAZOLIN 1 GM/50 ML (PMX) 50 ML IVPB SCH (23:06)
[2016-10-02] MEDS ORDERED: PHENTOLAMINE 5 MG INJ SC ONE (23:58)
[2016-10-03] VITALS (22 sets, daily range): BP systolic 79–118; BP diastolic 23–90; PULSE 80–122; RESP 15–37
[2016-10-03 08:17] LABS: ADD SCAN DIFF NO
[2016-10-03 08:25] LABS: BASOPHILS % 0.1 % (0.0-2.0); CALCIUM 7.9 mg/dl (8.4-10.2); CREATININE 6.27 mg/dl (0.61-1.24); EOSINOPHILS # 0.1 10^3/ul (0.0-0.5); EOSINOPHILS % 1.4 % (0.0-7.0); HEMATOCRIT 30.5 % (42.0-52.0); HEMOGLOBIN 9.5 g/dl (14.0-18.0); LYMPHOCYTES # 0.8 10^3/ul (0.8-2.9); LYMPHOCYTES % 11.5 % (15.0-51.0); MEAN CORPUSCULAR HEMOGLOBIN 26.3 pg (29.0-33.0); MEAN CORPUSCULAR HGB CONC 31.1 g/dl (32.0-37.0); MEAN CORPUSCULAR VOLUME 84.5 fl (82.0-101.0); MEAN PLATELET VOLUME 11.4 fl (7.4-10.4); MONOCYTE # 0.8 10^3/ul (0.3-0.9); MONOCYTES % 11.5 % (0.0-11.0); NEUTROPHIL # 5.4 10^3/ul (1.6-7.5); NEUTROPHILS % 74.8 % (39.0-77.0); PLATELET COUNT 188 10^3/UL (140-415); RED BLOOD COUNT 3.61 10^6/ul (4.70-6.10); RED CELL DISTRIBUTION WIDTH 15.9 % (11.5-14.5); WHITE BLOOD COUNT 7.2 10^3/ul (4.8-10.8)
[2016-10-03] MEDS: ALBUTEROL/IPRATROPIUM (NEB) 3 ML AMP INH SCH ×3 (08:28→20:07)
[2016-10-03] MEDS: LISINOPRIL 5 MG TAB PO SCH (09:00)
[2016-10-03] MEDS: POLYETHYLENE GLYCOL 17 GM PACKET PO SCH ×2 (09:00→09:21)
[2016-10-03] MEDS: CLOPIDOGREL 75 MG TAB PO SCH (09:20)
[2016-10-03] MEDS: ASPIRIN (EC) 81 MG TAB PO SCH (09:20)
[2016-10-03] MEDS: HEPARIN 5,000 UNIT/0.5 ML VIAL SC SCH ×2 (09:21→20:50)
[2016-10-03] MEDS: INSULIN ASPART [NOVOLOG] 3 ML PEN SC SCH ×7 (10:00→20:51)
--- NOTE | 2016-10-03 11:06 | PN ---
Date/Time of Note Date/Time of Note DATE: 10/03/16 TIME: 11:04 Assessment/Plan VTE Prophylaxis VTE Prophylaxis Intervention: SCD's Lines/Catheters IV C[facility]ter Type [facility]from [facility] Peripheral IV Urinary Cath still in place: No Assessment/Plan Chief Complaint/Hosp Course 70 yo M with pmhx ESRD admitted for chest pain found to have STEMI, sp PCI x 2 from cardiology service, and bradycardia now sp temp PM placement 5.29 by cardiology, permanent PM 5.31. Also with an episode of AFib/flutter 5.31 #STEMI and bradycardia: Dr Lundy/cardiology service following. Cont acei, asa/plavix, statin defer weaning of dopamine and IVFs to cardiology #afib/flutter as per cardiology defer ATC decision to cardiology service #ESRD: renal following #dispo: ICU v floor as per cardiology. #DVT prophx: SCDs #DM2: cont basal/bolus insulin-->titrate as per DM educator rec #FEN: cardiac diet Problems: Subjective 24 Hr Interval Summary Free Text/Dictation used language line to speak with pt and his this AM Pt feeling better. and pt anxious about pt's overall trajectory Exam/Review of Systems Vital Signs Vitals Vital Signs Date Time Temp Pulse Resp B/P Pulse Ox O2 Delivery O2 Flow Rate FiO2 10/03/16 08:29 83 20 9 Nasal Cannula 3.0 10/03/16 08:00 99.0 89/36 Intake and Output 10/02/16 10/02/16 10/03/16 15:00 23:00 07:00 Intake Total 826.056 ml 497.538 ml 170 ml Output Total 3000 ml Balance -2173.944 ml 497.538 ml 170 ml Exam laying in bed, nad, pleasant PM site c/d/i no mrg lungs clear abd soft no rashes no le edema Results Result Diagram: 10/03/16 0638 10/03/16 0638 Results 24 hrs Laboratory Tests Test 10/02/16 11:59 10/02/16 17:40 10/02/16 21:13 10/03/16 04:46 Bedside Glucose 112 88 179 100 Test 10/03/16 06:35 10/03/16 06:38 10/03/16 09:56 Troponin I 8.680 *H White Blood Count 7.2 # Red Blood Count 3.61 L Hemoglobin 9.5 L Hematocrit 30.5 L Mean Corpuscular Volume 84.5 Mean Corpuscular Hemoglobin 26.3 L Mean Corpuscular Hemoglobin Concent 31.1 L Red Cell Distribution Width 15.9 H Platelet Count 188 Mean Platelet Volume 11.4 H Neutrophils % 74.8 Lymphocytes % 11.5 L Monocytes % 11.5 H Eosinophils % 1.4 Basophils % 0.1 Nucleated Red Blood Cells % 0.0 Neutrophils # 5.4 Lymphocytes # 0.8 Monocytes # 0.8 Eosinophils # 0.1 Basophils # 0.0 Nucleated Red Blood Cells # 0.0 Sodium Level 141 Potassium Level 4.0 Chloride Level 99 Carbon Dioxide Level 30 Anion Gap 16 Blood Urea Nitrogen 45 #H Creatinine 6.27 #H Glucose Level 149 Calcium Level 7.9 L Bedside Glucose 268 H Medications Medications Current Medications Aspirin (Halfprin) 81 mg DAILY PO Last administered on 10/03/16 09:20; Admin Dose 81 MG; Start 09/28/16 at 09:00 Clopidogrel Bisulfate (plaVIX) 75 mg DAILY PO Last administered on 10/03/16 09: 20; Admin Dose 75 MG; Start 09/28/16 at 09:00 Ondansetron HCl (Zofran Inj) 4 mg Q6H PRN IV NAUSEA AND/OR VOMITING Last administered on 10/01/16 05:39; Admin Dose 4 MG; Start 09/27/16 at 13:00 Acetaminophen (Tylenol Tab) 650 mg Q6H PRN PO PAIN LEVEL 1-3 OR FEVER; Start at 13:30 Acetaminophen (Tylenol Supp) 650 mg Q6H PRN [place] PAIN LEVEL 1-3 OR FEVER; Start 09/27/16 at 13:30 Acetaminophen/ Hydrocodone Bitart ([place] (5/325)) 1 tab Q6H PRN PO MODERATE PAIN LEVEL 4-6 Last administered on 09/28/16 20:43; Admin Dose 1 TAB; Start at 13:30 Acetaminophen/ Hydrocodone Bitart ([place] (5/325)) 2 tab Q6H PRN PO SEVERE PAIN LEVEL 7-10; Start 09/27/16 at 13:30 Morphine Sulfate (morphine) 2 mg Q4H PRN IV SEVERE PAIN LEVEL 7-10; Start 09/27 at 13:30 Docusate Sodium (Colace) 100 mg Q12H PRN PO CONSTIPATION Last administered on 05:41; Admin Dose 100 MG; Start 09/27/16 at 13:30 Magnesium Hydroxide (Milk Of Mag) 30 ml DAILY PRN PO CONSTIPATION; Start at 13:30 Bisacodyl (Dulcolax Supp) 10 mg DAILY PRN [place] CONSTIPATION Last administered on 09/30/16 05:41; Admin Dose 10 MG; Start 09/27/16 at 13:30 Heparin Sodium (Porcine) (Heparin (5000 Units/0.5 ml)) 5,000 unit Q12 SC Last administered on 10/03/16 09:21; Admin Dose 5,000 UNIT; Start 09/27/16 at 21:00 Nitroglycerin (Nitroglycerin (Sl Tab) 0.4 Mg) 1 tab Q5M PRN SL CHEST PAIN; Start 09/27/16 at 13:30 Miscellaneous Information 1 ea NOTE XX ; Start 09/27/16 at 14:00 Glucose (Glutose) 15 gm Q15M PRN PO DECREASED GLUCOSE; Start 09/27/16 at 14:00 Glucose (Glutose) 22.5 gm Q15M PRN PO DECREASED GLUCOSE; Start 09/27/16 at 14: 00 Dextrose (D50w Syringe) 25 ml Q15M PRN IV DECREASED GLUCOSE; Start 09/27/16 at 14:00 Dextrose (D50w Syringe) 50 ml Q15M PRN IV DECREASED GLUCOSE; Start 09/27/16 at 14:00 Glucagon (Glucagen) 1 mg Q15M PRN IM DECREASED GLUCOSE; Start 09/27/16 at 14:00 Glucose (Glutose) 15 gm Q15M PRN BUCCAL DECREASED GLUCOSE; Start 09/27/16 at 14 :00 Atropine Sulfate 0.5 mg 0.5 mg PRN PRN IV BRADYCARDIA (HR <40); Start 09/27/16 at 15:00 Dopamine HCl/ Dextrose 250 ml @ 6.375 mls/ hr TITRATE IV Last administered on 10/02/16 06:14; Admin Dose 6.375 MLS/HR; Start 09/27/16 at 15:00 Atorvastatin Calcium (Lipitor) 80 mg HS PO Last administered on 10/02/16 21:23 ; Admin Dose 80 MG; Start 09/28/16 at 21:00 Lisinopril (Zestril) 5 mg DAILY PO Last administered on 10/01/16 09:37; Admin Dose 5 MG; Start 09/28/16 at 14:30 Insulin Glargine (Lantus) 15 unit DAILY@20 SC Last administered on 10/02/16 21: 22; Admin Dose 15 UNIT; Start 09/30/16 at 20:00 Polyethylene Glycol (Miralax) 17 gm DAILY PO Last administered on 10/02/16 09: 21; Admin Dose 17 GM; Start 09/30/16 at 15:00 Morphine Sulfate 2 mg 2 mg Q2H PRN IV FOR NON CARDIAC PAIN (4-10); Start at 21:00 Cefazolin Sodium 50 ml @ 100 mls/hr Q24H IVPB Last administered on 10/02/16 23 :06; Admin Dose 100 MLS/HR; Start 10/01/16 at 22:00 Sodium Chloride (NS) 250 ml @ 250 mls/hr Q1H PRN IV BLOOD PRESSURE SUPPORT; Start 10/02/16 at 19:30 AMARILIS CONTRERAS MD Oct 03, 2016 11:05
--- NOTE | 2016-10-03 16:27 | CONS ---
Date/Time of Note Date/Time of Note DATE: 10/03/16 TIME: 16:25 Assessment/Plan Assessment/Plan Additional Assessment/Plan 1. Acute ST-elevation myocardial infarction, status post cardiac catheterization with 2 stents placed in the right coronary artery. 2. End-stage renal disease on hemodialysis 3 times a week. 3. Hypertension. 4. Diabetes mellitus type 2. 5. Bradycardia, severe, status post atropine in ICU.,s/p pacemaker placement PLAN: off dopamine gtt, BP drops to systolic 80s, pt asymptomatic, No plan for HDtoday , will plan for HD tomorrow with minimal ultrafiltration pt regular schedule fo r HD is , and Thursday - next HD plan on Thursday will conitnue to follow up on patient Consultation Date/Type/Reason Admit Date/Time September 27, 2016 at 12:23 Type of Consultation: NEPHROLOGY Referring Provider: HUNTER BASSETT MD 24 HR Interval Summary Free Text/Dictation doing ok, BP still labile off Dopamine, afebrile, Exam/Review of Systems Vital Signs Vitals Vital Signs Date Time Temp Pulse Resp B/P Pulse Ox O2 Delivery O2 Flow Rate FiO2 10/03/16 14:24 3.0 10/03/16 14:23 86 20 99 Nasal Cannula 10/03/16 08:00 99.0 89/36 Intake and Output 10/02/16 10/02/16 10/03/16 15:00 23:00 07:00 Intake Total 826.056 ml 497.538 ml 170 ml Output Total 3000 ml Balance -2173.944 ml 497.538 ml 170 ml Exam Constitutional: alert Psych: no complaints Head: normocephalic Neck: supple Respiratory: clear to auscultation, diminished breath sounds Cardiovascular: nl pulses, regular rate and rhythm Gastrointestinal: non-tender, soft Musculoskeletal: nl extremities to inspection Extremities: normal pulses, + right pacemaker, Left AVF Neurological: ELECTRONIC VIDEO GAMES SERVICER II-XII intact Results Result Diagram: 10/03/16 0638 10/03/16 0638 Results 24 hrs Laboratory Tests Test 10/02/16 17:40 10/02/16 21:13 10/03/16 04:46 10/03/16 06:35 Bedside Glucose 88 179 100 Troponin I 8.680 *H Test 10/03/16 06:38 10/03/16 09:56 10/03/16 11:50 10/03/16 12:42 White Blood Count 7.2 # Red Blood Count 3.61 L Hemoglobin 9.5 L Hematocrit 30.5 L Mean Corpuscular Volume 84.5 Mean Corpuscular Hemoglobin 26.3 L Mean Corpuscular Hemoglobin Concent 31.1 L Red Cell Distribution Width 15.9 H Platelet Count 188 Mean Platelet Volume 11.4 H Neutrophils % 74.8 Lymphocytes % 11.5 L Monocytes % 11.5 H Eosinophils % 1.4 Basophils % 0.1 Nucleated Red Blood Cells % 0.0 Neutrophils # 5.4 Lymphocytes # 0.8 Monocytes # 0.8 Eosinophils # 0.1 Basophils # 0.0 Nucleated Red Blood Cells # 0.0 Sodium Level 141 Potassium Level 4.0 Chloride Level 99 Carbon Dioxide Level 30 Anion Gap 16 Blood Urea Nitrogen 45 #H Creatinine 6.27 #H Glucose Level 149 Calcium Level 7.9 L Bedside Glucose 268 H 166 Troponin I 8.550 *H Medications Medications Current Medications Aspirin (Halfprin) 81 mg DAILY PO Last administered on 10/03/16 09:20; Admin Dose 81 MG; Start 09/28/16 at 09:00 Clopidogrel Bisulfate (plaVIX) 75 mg DAILY PO Last administered on 10/03/16 09: 20; Admin Dose 75 MG; Start 09/28/16 at 09:00 Ondansetron HCl (Zofran Inj) 4 mg Q6H PRN IV NAUSEA AND/OR VOMITING Last administered on 10/01/16 05:39; Admin Dose 4 MG; Start 09/27/16 at 13:00 Acetaminophen (Tylenol Tab) 650 mg Q6H PRN PO PAIN LEVEL 1-3 OR FEVER; Start at 13:30 Acetaminophen (Tylenol Supp) 650 mg Q6H PRN [place] PAIN LEVEL 1-3 OR FEVER; Start 09/27/16 at 13:30 Acetaminophen/ Hydrocodone Bitart ([place] (5/325)) 1 tab Q6H PRN PO MODERATE PAIN LEVEL 4-6 Last administered on 09/28/16 20:43; Admin Dose 1 TAB; Start at 13:30 Acetaminophen/ Hydrocodone Bitart ([place] (5/325)) 2 tab Q6H PRN PO SEVERE PAIN LEVEL 7-10; Start 09/27/16 at 13:30 Morphine Sulfate (morphine) 2 mg Q4H PRN IV SEVERE PAIN LEVEL 7-10; Start 09/27 at 13:30 Docusate Sodium (Colace) 100 mg Q12H PRN PO CONSTIPATION Last administered on 05:41; Admin Dose 100 MG; Start 09/27/16 at 13:30 Magnesium Hydroxide (Milk Of Mag) 30 ml DAILY PRN PO CONSTIPATION; Start at 13:30 Bisacodyl (Dulcolax Supp) 10 mg DAILY PRN [place] CONSTIPATION Last administered on 09/30/16 05:41; Admin Dose 10 MG; Start 09/27/16 at 13:30 Heparin Sodium (Porcine) (Heparin (5000 Units/0.5 ml)) 5,000 unit Q12 SC Last administered on 10/03/16 09:21; Admin Dose 5,000 UNIT; Start 09/27/16 at 21:00 Nitroglycerin (Nitroglycerin (Sl Tab) 0.4 Mg) 1 tab Q5M PRN SL CHEST PAIN; Start 09/27/16 at 13:30 Miscellaneous Information 1 ea NOTE XX ; Start 09/27/16 at 14:00 Glucose (Glutose) 15 gm Q15M PRN PO DECREASED GLUCOSE; Start 09/27/16 at 14:00 Glucose (Glutose) 22.5 gm Q15M PRN PO DECREASED GLUCOSE; Start 09/27/16 at 14: 00 Dextrose (D50w Syringe) 25 ml Q15M PRN IV DECREASED GLUCOSE; Start 09/27/16 at 14:00 Dextrose (D50w Syringe) 50 ml Q15M PRN IV DECREASED GLUCOSE; Start 09/27/16 at 14:00 Glucagon (Glucagen) 1 mg Q15M PRN IM DECREASED GLUCOSE; Start 09/27/16 at 14:00 Glucose (Glutose) 15 gm Q15M PRN BUCCAL DECREASED GLUCOSE; Start 09/27/16 at 14 :00 Atropine Sulfate 0.5 mg 0.5 mg PRN PRN IV BRADYCARDIA (HR <40); Start 09/27/16 at 15:00 Dopamine HCl/ Dextrose 250 ml @ 6.375 mls/ hr TITRATE IV Last administered on 10/02/16 06:14; Admin Dose 6.375 MLS/HR; Start 09/27/16 at 15:00 Atorvastatin Calcium (Lipitor) 80 mg HS PO Last administered on 10/02/16 21:23 ; Admin Dose 80 MG; Start 09/28/16 at 21:00 Lisinopril (Zestril) 5 mg DAILY PO Last administered on 10/01/16 09:37; Admin Dose 5 MG; Start 09/28/16 at 14:30 Insulin Glargine (Lantus) 15 unit DAILY@20 SC Last administered on 10/02/16 21: 22; Admin Dose 15 UNIT; Start 09/30/16 at 20:00 Polyethylene Glycol (Miralax) 17 gm DAILY PO Last administered on 10/02/16 09: 21; Admin Dose 17 GM; Start 09/30/16 at 15:00 Morphine Sulfate 2 mg 2 mg Q2H PRN IV FOR NON CARDIAC PAIN (4-10); Start at 21:00 Cefazolin Sodium 50 ml @ 100 mls/hr Q24H IVPB Last administered on 10/02/16 23 :06; Admin Dose 100 MLS/HR; Start 10/01/16 at 22:00 Sodium Chloride (NS) 250 ml @ 250 mls/hr Q1H PRN IV BLOOD PRESSURE SUPPORT; Start 10/02/16 at 19:30 RAYNE FITCH MD Oct 03, 2016 16:27
[2016-10-03] MEDS: ATORVASTATIN 80 MG TAB PO SCH (20:48)
[2016-10-03] MEDS: INSULIN GLARGINE [LANtus] 3 ML PEN SC SCH (20:51)
[2016-10-03] MEDS: CEFAZOLIN 1 GM/50 ML (PMX) 50 ML IVPB SCH (21:03)
--- NOTE | 2016-10-03 23:54 | RADRPT ---
Vent Rate: 92 bpm RR Interval: 0 msec TX Interval: 0 msec QRS Duration: 104 msec QT Interval: 388 msec QTC Interval: 479 msec P-R-T [place]: 0 - 29 - -43 degrees Demand pacemaker, interpretation is based on intrinsic rhythm Atrial fibrillation with premature ventricular or aberrantly conducted complexes Prolonged QT Abnormal ECG Electronically Signed By: Jf Bauman [id number]
[2016-10-04] VITALS (22 sets, daily range): BP systolic 107–144; BP diastolic 33–94; PULSE 82–96; RESP 15–27
[2016-10-04] MEDS: INSULIN ASPART [NOVOLOG] 3 ML PEN SC SCH ×7 (07:50→21:00)
[2016-10-04] MEDS: ALBUTEROL/IPRATROPIUM (NEB) 3 ML AMP INH SCH (08:17)
[2016-10-04] MEDS: ASPIRIN (EC) 81 MG TAB PO SCH (08:23)
[2016-10-04] MEDS: HEPARIN 5,000 UNIT/0.5 ML VIAL SC SCH ×2 (08:24→21:00)
[2016-10-04] MEDS: CLOPIDOGREL 75 MG TAB PO SCH (08:24)
[2016-10-04] MEDS: POLYETHYLENE GLYCOL 17 GM PACKET PO SCH (08:25)
[2016-10-04] MEDS: LISINOPRIL 5 MG TAB PO SCH (08:25)
--- NOTE | 2016-10-04 11:12 | CONS ---
Date/Time of Note Date/Time of Note DATE: 10/04/16 TIME: 11:10 Consult Date/Type/Reason Admit Date/Time September 27, 2016 at 12:23 Initial Consult Date 06/30/2016 Type of Consultation: Cardiology Ordering Provider: HUNTER BASSETT MD Objective Vital Signs Date Time Temp Pulse Resp B/P Pulse Ox O2 Delivery O2 Flow Rate FiO2 10/04/16 09:16 Nasal Cannula 2.0 10/04/16 08:18 82 18 96 10/04/16 07:49 98.2 134/63 Intake and Output 10/03/16 10/03/16 10/04/16 15:00 23:00 07:00 Intake Total 510 ml 350 ml Balance 510 ml 350 ml Results/Medications Result Diagram: 10/03/16 0638 10/03/1638 Results 24 hrs Laboratory Tests Test 10/03/16 11:50 10/03/16 12:42 10/03/16 17:11 10/03/16 19:52 Troponin I 8.550 *H Bedside Glucose 166 134 165 Test 10/04/16 07:45 Bedside Glucose 111 Medications Current Medications Aspirin (Halfprin) 81 mg DAILY PO Last administered on 10/04/16 08:23; Admin Dose 81 MG; Start 09/28/16 at 09:00 Clopidogrel Bisulfate (plaVIX) 75 mg DAILY PO Last administered on 10/04/16 08: 24; Admin Dose 75 MG; Start 09/28/16 at 09:00 Ondansetron HCl (Zofran Inj) 4 mg Q6H PRN IV NAUSEA AND/OR VOMITING Last administered on 10/01/16 05:39; Admin Dose 4 MG; Start 09/27/16 at 13:00 Acetaminophen (Tylenol Tab) 650 mg Q6H PRN PO PAIN LEVEL 1-3 OR FEVER; Start at 13:30 Acetaminophen (Tylenol Supp) 650 mg Q6H PRN [place] PAIN LEVEL 1-3 OR FEVER; Start 09/27/16 at 13:30 Acetaminophen/ Hydrocodone Bitart ([place] (5/325)) 1 tab Q6H PRN PO MODERATE PAIN LEVEL 4-6 Last administered on 09/28/16 20:43; Admin Dose 1 TAB; Start at 13:30 Acetaminophen/ Hydrocodone Bitart ([place] (5/325)) 2 tab Q6H PRN PO SEVERE PAIN LEVEL 7-10; Start 09/27/16 at 13:30 Morphine Sulfate (morphine) 2 mg Q4H PRN IV SEVERE PAIN LEVEL 7-10; Start 09/27 at 13:30 Docusate Sodium (Colace) 100 mg Q12H PRN PO CONSTIPATION Last administered on 05:41; Admin Dose 100 MG; Start 09/27/16 at 13:30 Magnesium Hydroxide (Milk Of Mag) 30 ml DAILY PRN PO CONSTIPATION; Start at 13:30 Bisacodyl (Dulcolax Supp) 10 mg DAILY PRN [place] CONSTIPATION Last administered on 09/30/16 05:41; Admin Dose 10 MG; Start 09/27/16 at 13:30 Heparin Sodium (Porcine) (Heparin (5000 Units/0.5 ml)) 5,000 unit Q12 SC Last administered on 10/04/16 08:24; Admin Dose 5,000 UNIT; Start 09/27/16 at 21:00 Nitroglycerin (Nitroglycerin (Sl Tab) 0.4 Mg) 1 tab Q5M PRN SL CHEST PAIN; Start 09/27/16 at 13:30 Miscellaneous Information 1 ea NOTE XX ; Start 09/27/16 at 14:00 Glucose (Glutose) 15 gm Q15M PRN PO DECREASED GLUCOSE; Start 09/27/16 at 14:00 Glucose (Glutose) 22.5 gm Q15M PRN PO DECREASED GLUCOSE; Start 09/27/16 at 14: 00 Dextrose (D50w Syringe) 25 ml Q15M PRN IV DECREASED GLUCOSE; Start 09/27/16 at 14:00 Dextrose (D50w Syringe) 50 ml Q15M PRN IV DECREASED GLUCOSE; Start 09/27/16 at 14:00 Glucagon (Glucagen) 1 mg Q15M PRN IM DECREASED GLUCOSE; Start 09/27/16 at 14:00 Glucose (Glutose) 15 gm Q15M PRN BUCCAL DECREASED GLUCOSE; Start 09/27/16 at 14 :00 Atropine Sulfate 0.5 mg 0.5 mg PRN PRN IV BRADYCARDIA (HR <40); Start 09/27/16 at 15:00 Dopamine HCl/ Dextrose 250 ml @ 6.375 mls/ hr TITRATE IV Last administered on 10/02/16 06:14; Admin Dose 6.375 MLS/HR; Start 09/27/16 at 15:00 Atorvastatin Calcium (Lipitor) 80 mg HS PO Last administered on 10/03/16 20:48 ; Admin Dose 80 MG; Start 09/28/16 at 21:00 Lisinopril (Zestril) 5 mg DAILY PO Last administered on 10/04/16 08:25; Admin Dose 5 MG; Start 09/28/16 at 14:30 Insulin Glargine (Lantus) 15 unit DAILY@20 SC Last administered on 10/03/16 20: 51; Admin Dose 15 UNIT; Start 09/30/16 at 20:00 Polyethylene Glycol (Miralax) 17 gm DAILY PO Last administered on 10/04/16 08: 25; Admin Dose 17 GM; Start 09/30/16 at 15:00 Morphine Sulfate 2 mg 2 mg Q2H PRN IV FOR NON CARDIAC PAIN (4-10); Start at 21:00 Cefazolin Sodium 50 ml @ 100 mls/hr Q24H IVPB Last administered on 10/03/16 21 :03; Admin Dose 100 MLS/HR; Start 10/01/16 at 22:00 Sodium Chloride (NS) 250 ml @ 250 mls/hr Q1H PRN IV BLOOD PRESSURE SUPPORT; Start 10/02/16 at 19:30 Assessment/Plan Chief Complaint/Hosp Course Pt with RCA STEMI s/p PCI of RCA x 2 BUNNY ASA Plavix Problems: Additional Assessment/Plan Pt s/p RCA CO S/P CHB and Aflutter Now in sinus rhythm paced at 86bpm continue pacing at this rate he needs CO continue DAPT Statin will order PT today out of bed to chair and walking he does have some hypotention episodes and feels dizzy. adjust HD and meds PT and may need short term Rehab. d/w Son Bk. HUNTER BASSETT MD Oct 04, 2016 11:12
--- NOTE | 2016-10-04 14:45 | PN ---
Date/Time of Note Date/Time of Note DATE: 10/04/16 TIME: 14:44 Assessment/Plan VTE Prophylaxis VTE Prophylaxis Intervention: SCD's Lines/Catheters IV Catheter Type (from [facility] [place] Urinary Cath still in place: No Assessment/Plan Chief Complaint/Hosp Course 70 yo M with pmhx ESRD admitted for chest pain found to have STEMI, sp PCI x 2 from cardiology service, and bradycardia now sp temp PM placement 5.29 by cardiology, permanent PM 5.31. Also with an episode of AFib/flutter 5.31 #STEMI and bradycardia: Dr Lundy/cardiology service following. Cont acei, asa/plavix, statin #afib/flutter as per cardiology defer ATC decision to cardiology service #ESRD: renal following #dispo: tele/floor. PT as per cardiology #DVT prophx: SCDs #DM2: cont basal/bolus insulin-->titrate as per DM educator rec #FEN: cardiac diet Problems: Subjective 24 Hr Interval Summary Free Text/Dictation Language line used to facilitate communication Pt and had questions about relationship between tele leads and his PM Also states he gets a little lightheaded when he gets up too quickly Exam/Review of Systems Vital Signs Vitals Vital Signs Date Time Temp Pulse Resp B/P Pulse Ox O2 Delivery O2 Flow Rate FiO2 10/04/16 12:08 89 10/04/16 11:58 98.5 19 111/55 10/04/16 09:16 Nasal Cannula 2.0 10/04/16 08:18 96 Intake and Output 10/03/16 10/03/16 10/04/16 15:00 23:00 07:00 Intake Total 510 ml 350 ml Balance 510 ml 350 ml Exam nad, laying in bed PM site c/d/i no mrg lungs clear abd soft no le edema Results Result Diagram: 10/03/16 0638 10/03/16 0638 Results 24 hrs Laboratory Tests Test 10/03/16 17:11 10/03/16 19:52 10/04/16 07:45 10/04/16 12:14 Bedside Glucose 134 165 111 116 Medications Medications Current Medications Aspirin (Halfprin) 81 mg DAILY PO Last administered on 10/04/16t 08:23; Admin Dose 81 MG; Start 09/28/16 at 09:00 Clopidogrel Bisulfate (plaVIX) 75 mg DAILY PO Last administered on 10/04/16 08: 24; Admin Dose 75 MG; Start 09/28/16 at 09:00 Ondansetron HCl (Zofran Inj) 4 mg Q6H PRN IV NAUSEA AND/OR VOMITING Last administered on 10/01/16 05:39; Admin Dose 4 MG; Start 09/27/16 at 13:00 Acetaminophen (Tylenol Tab) 650 mg Q6H PRN PO PAIN LEVEL 1-3 OR FEVER; Start at 13:30 Acetaminophen (Tylenol Supp) 650 mg Q6H PRN [place] PAIN LEVEL 1-3 OR FEVER; Start 09/27/16 at 13:30 Acetaminophen/ Hydrocodone Bitart ([place] (5/325)) 1 tab Q6H PRN PO MODERATE PAIN LEVEL 4-6 Last administered on 09/28/16 20:43; Admin Dose 1 TAB; Start at 13:30 Acetaminophen/ Hydrocodone Bitart ([place] (5/325)) 2 tab Q6H PRN PO SEVERE PAIN LEVEL 7-10; Start 09/27/16 at 13:30 Morphine Sulfate (morphine) 2 mg Q4H PRN IV SEVERE PAIN LEVEL 7-10; Start 09/27 at 13:30 Docusate Sodium (Colace) 100 mg Q12H PRN PO CONSTIPATION Last administered on 05:41; Admin Dose 100 MG; Start 09/27/16 at 13:30 Magnesium Hydroxide (Milk Of Mag) 30 ml DAILY PRN PO CONSTIPATION; Start at 13:30 Bisacodyl (Dulcolax Supp) 10 mg DAILY PRN [place] CONSTIPATION Last administered on 09/30/16 05:41; Admin Dose 10 MG; Start 09/27/16 at 13:30 Heparin Sodium (Porcine) (Heparin (5000 Units/0.5 ml)) 5,000 unit Q12 SC Last administered on 10/04/16 08:24; Admin Dose 5,000 UNIT; Start 09/27/16 at 21:00 Nitroglycerin (Nitroglycerin (Sl Tab) 0.4 Mg) 1 tab Q5M PRN SL CHEST PAIN; Start 09/27/16 at 13:30 Miscellaneous Information 1 ea NOTE XX ; Start 09/27/16 at 14:00 Glucose (Glutose) 15 gm Q15M PRN PO DECREASED GLUCOSE; Start 09/27/16 at 14:00 Glucose (Glutose) 22.5 gm Q15M PRN PO DECREASED GLUCOSE; Start 09/27/16 at 14: 00 Dextrose (D50w Syringe) 25 ml Q15M PRN IV DECREASED GLUCOSE; Start 09/27/16 at 14:00 Dextrose (D50w Syringe) 50 ml Q15M PRN IV DECREASED GLUCOSE; Start 09/27/16 at 14:00 Glucagon (Glucagen) 1 mg Q15M PRN IM DECREASED GLUCOSE; Start 09/27/16 at 14:00 Glucose (Glutose) 15 gm Q15M PRN BUCCAL DECREASED GLUCOSE; Start 09/27/16 at 14 :00 Atropine Sulfate (Atropine (Syringe)) 0.5 mg PRN PRN IV BRADYCARDIA (HR <40); Start 09/27/16 at 15:00 Atorvastatin Calcium (Lipitor) 80 mg HS PO Last administered on 10/03/16 20:48 ; Admin Dose 80 MG; Start 09/28/16 at 21:00 Lisinopril (Zestril) 5 mg DAILY PO Last administered on 10/04/16 08:25; Admin Dose 5 MG; Start 09/28/16 at 14:30 Insulin Glargine (Lantus) 15 unit DAILY@20 SC Last administered on 10/03/16 20: 51; Admin Dose 15 UNIT; Start 09/30/16 at 20:00 Polyethylene Glycol (Miralax) 17 gm DAILY PO Last administered on 10/04/16 08: 25; Admin Dose 17 GM; Start 09/30/16 at 15:00 Morphine Sulfate 2 mg 2 mg Q2H PRN IV FOR NON CARDIAC PAIN (4-10); Start at 21:00 Cefazolin Sodium (Ancef 1 Gm/50 ml (Pmx)) 50 ml @ 100 mls/hr Q24H IVPB Last administered on 10/03/16 21:03; Admin Dose 100 MLS/HR; Start 10/01/16 at 22:00 AMARILIS CONTRERAS MD Oct 04, 2016 14:45
--- NOTE | 2016-10-04 14:51 | CONS ---
Date/Time of Note Date/Time of Note DATE: 10/04/16 TIME: 14:50 Assessment/Plan Assessment/Plan Additional Assessment/Plan 1. Acute ST-elevation myocardial infarction, status post cardiac catheterization with 2 stents placed in the right coronary artery. 2. End-stage renal disease on hemodialysis 3 times a week. 3. Hypertension. 4. Diabetes mellitus type 2. 5. Bradycardia, severe, status post atropine in ICU.,s/p pacemaker placement PLAN: getting HD now pt regular schedule fo r HD is , and Thursday - next HD plan on Thursday will conitnue to follow up on patient Consultation Date/Type/Reason Admit Date/Time September 27, 2016 at 12:23 Type of Consultation: NEPHROLOGY Referring Provider: HUNTER BASSETT MD 24 HR Interval Summary Free Text/Dictation gettign HD now, Bp stable, cardiolgoy following Exam/Review of Systems Vital Signs Vitals Vital Signs Date Time Temp Pulse Resp B/P Pulse Ox O2 Delivery O2 Flow Rate FiO2 10/04/16 12:08 89 10/04/16 11:58 98.5 19 111/55 10/04/16 09:16 Nasal Cannula 2.0 10/04/16 08:18 96 Intake and Output 10/03/16 10/03/16 10/04/16 15:00 23:00 07:00 Intake Total 510 ml 350 ml Balance 510 ml 350 ml Exam Constitutional: alert Psych: no complaints Head: normocephalic Neck: supple Respiratory: clear to auscultation, diminished breath sounds Cardiovascular: nl pulses, regular rate and rhythm Gastrointestinal: non-tender, soft Musculoskeletal: nl extremities to inspection Extremities: normal pulses, + right pacemaker, Left AVF Neurological: REFRACTORY MIXER II-XII intact Results Result Diagram: 10/03/16 0638 10/03/1638 Results 24 hrs Laboratory Tests Test 10/03/16 17:11 10/03/16 19:52 10/04/16 07:45 10/04/16 12:14 Bedside Glucose 134 165 111 116 Medications Medications Current Medications Aspirin (Halfprin) 81 mg DAILY PO Last administered on 10/04/16 08:23; Admin Dose 81 MG; Start 09/28/16 at 09:00 Clopidogrel Bisulfate (plaVIX) 75 mg DAILY PO Last administered on 10/04/16 08: 24; Admin Dose 75 MG; Start 09/28/16 at 09:00 Ondansetron HCl (Zofran Inj) 4 mg Q6H PRN IV NAUSEA AND/OR VOMITING Last administered on 10/01/16 05:39; Admin Dose 4 MG; Start 09/27/16 at 13:00 Acetaminophen (Tylenol Tab) 650 mg Q6H PRN PO PAIN LEVEL 1-3 OR FEVER; Start at 13:30 Acetaminophen (Tylenol Supp) 650 mg Q6H PRN [place] PAIN LEVEL 1-3 OR FEVER; Start 09/27/16 at 13:30 Acetaminophen/ Hydrocodone Bitart ([place] (5/325)) 1 tab Q6H PRN PO MODERATE PAIN LEVEL 4-6 Last administered on 09/28/16 20:43; Admin Dose 1 TAB; Start at 13:30 Acetaminophen/ Hydrocodone Bitart ([place] (5/325)) 2 tab Q6H PRN PO SEVERE PAIN LEVEL 7-10; Start 09/27/16 at 13:30 Morphine Sulfate (morphine) 2 mg Q4H PRN IV SEVERE PAIN LEVEL 7-10; Start 09/27 at 13:30 Docusate Sodium (Colace) 100 mg Q12H PRN PO CONSTIPATION Last administered on 05:41; Admin Dose 100 MG; Start 09/27/16 at 13:30 Magnesium Hydroxide (Milk Of Mag) 30 ml DAILY PRN PO CONSTIPATION; Start at 13:30 Bisacodyl (Dulcolax Supp) 10 mg DAILY PRN [place] CONSTIPATION Last administered on 09/30/16 05:41; Admin Dose 10 MG; Start 09/27/16 at 13:30 Heparin Sodium (Porcine) (Heparin (5000 Units/0.5 ml)) 5,000 unit Q12 SC Last administered on 10/04/16 08:24; Admin Dose 5,000 UNIT; Start 09/27/16 at 21:00 Nitroglycerin (Nitroglycerin (Sl Tab) 0.4 Mg) 1 tab Q5M PRN SL CHEST PAIN; Start 09/27/16 at 13:30 Miscellaneous Information 1 ea NOTE XX ; Start 09/27/16 at 14:00 Glucose (Glutose) 15 gm Q15M PRN PO DECREASED GLUCOSE; Start 09/27/16 at 14:00 Glucose (Glutose) 22.5 gm Q15M PRN PO DECREASED GLUCOSE; Start 09/27/16 at 14: 00 Dextrose (D50w Syringe) 25 ml Q15M PRN IV DECREASED GLUCOSE; Start 09/27/16 at 14:00 Dextrose (D50w Syringe) 50 ml Q15M PRN IV DECREASED GLUCOSE; Start 09/27/16 at 14:00 Glucagon (Glucagen) 1 mg Q15M PRN IM DECREASED GLUCOSE; Start 09/27/16 at 14:00 Glucose (Glutose) 15 gm Q15M PRN BUCCAL DECREASED GLUCOSE; Start 09/27/16 at 14 :00 Atropine Sulfate (Atropine (Syringe)) 0.5 mg PRN PRN IV BRADYCARDIA (HR <40); Start 09/27/16 at 15:00 Atorvastatin Calcium (Lipitor) 80 mg HS PO Last administered on 10/03/16 20:48 ; Admin Dose 80 MG; Start 09/28/16 at 21:00 Lisinopril (Zestril) 5 mg DAILY PO Last administered on 10/04/16 08:25; Admin Dose 5 MG; Start 09/28/16 at 14:30 Insulin Glargine (Lantus) 15 unit DAILY@20 SC Last administered on 10/03/16 20: 51; Admin Dose 15 UNIT; Start 09/30/16 at 20:00 Polyethylene Glycol (Miralax) 17 gm DAILY PO Last administered on 10/04/16 08: 25; Admin Dose 17 GM; Start 09/30/16 at 15:00 Morphine Sulfate 2 mg 2 mg Q2H PRN IV FOR NON CARDIAC PAIN (4-10); Start at 21:00 Cefazolin Sodium (Ancef 1 Gm/50 ml (Pmx)) 50 ml @ 100 mls/hr Q24H IVPB Last administered on 10/03/16 21:03; Admin Dose 100 MLS/HR; Start 10/01/16 at 22:00 RAYNE FITCH MD Oct 04, 2016 14:51
[2016-10-04] MEDS: INSULIN GLARGINE [LANtus] 3 ML PEN SC SCH (20:59)
[2016-10-04] MEDS: ATORVASTATIN 80 MG TAB PO SCH (21:01)
[2016-10-04] MEDS: CEFAZOLIN 1 GM/50 ML (PMX) 50 ML IVPB SCH (22:10)
[2016-10-04] MEDS: ONDANSETRON 4 MG INJ IV PRN (22:14)
[2016-10-05] VITALS (11 sets, daily range): BP systolic 109–146; BP diastolic 46–60; PULSE 74–92; RESP 19–20
[2016-10-05] MEDS: ASPIRIN (EC) 81 MG TAB PO SCH (08:36)
[2016-10-05] MEDS: LISINOPRIL 5 MG TAB PO SCH (08:36)
[2016-10-05] MEDS: CLOPIDOGREL 75 MG TAB PO SCH (08:36)
[2016-10-05] MEDS: HEPARIN 5,000 UNIT/0.5 ML VIAL SC SCH ×2 (08:37→20:40)
[2016-10-05] MEDS: INSULIN ASPART [NOVOLOG] 3 ML PEN SC SCH ×7 (08:38→20:31)
[2016-10-05] MEDS: POLYETHYLENE GLYCOL 17 GM PACKET PO SCH (08:39)
--- NOTE | 2016-10-05 15:42 | CONS ---
Date/Time of Note Date/Time of Note DATE: 10/05/16 TIME: 15:41 Assessment/Plan Assessment/Plan Additional Assessment/Plan 1. Acute ST-elevation myocardial infarction, status post cardiac catheterization with 2 stents placed in the right coronary artery. 2. End-stage renal disease on hemodialysis 3 times a week. 3. Hypertension. 4. Diabetes mellitus type 2. 5. Bradycardia, severe, status post atropine in ICU.,s/p pacemaker placement PLAN: s/p HD yesterday, no plan for HD today, next HD will be on Thursday pt regular schedule fo r HD is , and Thursday will conitnue to follow up on patient Consultation Date/Type/Reason Admit Date/Time September 27, 2016 at 12:23 Type of Consultation: NEPHROLOGY Referring Provider: HUNTER BASSETT MD 24 HR Interval Summary Free Text/Dictation no acute events, BP stable, afebrile Exam/Review of Systems Vital Signs Vitals Vital Signs Date Time Temp Pulse Resp B/P Pulse Ox O2 Delivery O2 Flow Rate FiO2 10/05/16 12:00 74 10/05/16 11:53 98.4 19 119/51 98 10/05/16 07:37 Nasal Cannula 2.0 Intake and Output 10/04/16 10/04/16 10/05/16 15:00 23:00 07:00 Intake Total 950 ml Output Total 3500 ml Balance -2550 ml Exam Constitutional: alert Psych: no complaints Head: normocephalic Neck: supple Respiratory: clear to auscultation, diminished breath sounds Cardiovascular: nl pulses, regular rate and rhythm Gastrointestinal: non-tender, soft Musculoskeletal: nl extremities to inspection Extremities: normal pulses, + right pacemaker, Left AVF Neurological: WAREHOUSE DISTRIBUTION MANAGER II-XII intact Results Result Diagram: 10/03/16 0638 10/03/16 0638 Results 24 hrs Laboratory Tests Test 10/04/16 17:13 10/04/16 20:56 10/05/16 06:29 10/05/16 08:24 Bedside Glucose 192 175 166 152 Test 10/05/16 12:16 Bedside Glucose 139 Medications Medications Current Medications Aspirin (Halfprin) 81 mg DAILY PO Last administered on 10/05/16t 08:36; Admin Dose 81 MG; Start 09/28/16 at 09:00 Clopidogrel Bisulfate (plaVIX) 75 mg DAILY PO Last administered on 10/05/16 08: 36; Admin Dose 75 MG; Start 09/28/16 at 09:00 Ondansetron HCl (Zofran Inj) 4 mg Q6H PRN IV NAUSEA AND/OR VOMITING Last administered on 10/04/16 22:14; Admin Dose 4 MG; Start 09/27/16 at 13:00 Acetaminophen (Tylenol Tab) 650 mg Q6H PRN PO PAIN LEVEL 1-3 OR FEVER; Start at 13:30 Acetaminophen (Tylenol Supp) 650 mg Q6H PRN [place] PAIN LEVEL 1-3 OR FEVER; Start 09/27/16 at 13:30 Acetaminophen/ Hydrocodone Bitart ([place] (5/325)) 1 tab Q6H PRN PO MODERATE PAIN LEVEL 4-6 Last administered on 09/28/16 20:43; Admin Dose 1 TAB; Start at 13:30 Acetaminophen/ Hydrocodone Bitart ([place] (5/325)) 2 tab Q6H PRN PO SEVERE PAIN LEVEL 7-10; Start 09/27/16 at 13:30 Morphine Sulfate (morphine) 2 mg Q4H PRN IV SEVERE PAIN LEVEL 7-10; Start 09/27 at 13:30 Docusate Sodium (Colace) 100 mg Q12H PRN PO CONSTIPATION Last administered on 05:41; Admin Dose 100 MG; Start 09/27/16 at 13:30 Magnesium Hydroxide (Milk Of Mag) 30 ml DAILY PRN PO CONSTIPATION; Start at 13:30 Bisacodyl (Dulcolax Supp) 10 mg DAILY PRN [place] CONSTIPATION Last administered on 09/30/16 05:41; Admin Dose 10 MG; Start 09/27/16 at 13:30 Heparin Sodium (Porcine) (Heparin (5000 Units/0.5 ml)) 5,000 unit Q12 SC Last administered on 10/05/16 08:37; Admin Dose 5,000 UNIT; Start 09/27/16 at 21:00 Nitroglycerin (Nitroglycerin (Sl Tab) 0.4 Mg) 1 tab Q5M PRN SL CHEST PAIN; Start 09/27/16 at 13:30 Miscellaneous Information 1 ea NOTE XX ; Start 09/27/16 at 14:00 Glucose (Glutose) 15 gm Q15M PRN PO DECREASED GLUCOSE; Start 09/27/16 at 14:00 Glucose (Glutose) 22.5 gm Q15M PRN PO DECREASED GLUCOSE; Start 09/27/16 at 14: 00 Dextrose (D50w Syringe) 25 ml Q15M PRN IV DECREASED GLUCOSE; Start 09/27/16 at 14:00 Dextrose (D50w Syringe) 50 ml Q15M PRN IV DECREASED GLUCOSE; Start 09/27/16 at 14:00 Glucagon (Glucagen) 1 mg Q15M PRN IM DECREASED GLUCOSE; Start 09/27/16 at 14:00 Glucose (Glutose) 15 gm Q15M PRN BUCCAL DECREASED GLUCOSE; Start 09/27/16 at 14 :00 Atropine Sulfate (Atropine (Syringe)) 0.5 mg PRN PRN IV BRADYCARDIA (HR <40); Start 09/27/16 at 15:00 Atorvastatin Calcium (Lipitor) 80 mg HS PO Last administered on 10/04/16 21:01 ; Admin Dose 80 MG; Start 09/28/16 at 21:00 Lisinopril (Zestril) 5 mg DAILY PO Last administered on 10/05/16 08:36; Admin Dose 5 MG; Start 09/28/16 at 14:30 Insulin Glargine (Lantus) 15 unit DAILY@20 SC Last administered on 10/04/16 20: 59; Admin Dose 15 UNIT; Start 09/30/16 at 20:00 Polyethylene Glycol (Miralax) 17 gm DAILY PO Last administered on 10/05/16 08: 39; Admin Dose 17 GM; Start 09/30/16 at 15:00 Morphine Sulfate 2 mg 2 mg Q2H PRN IV FOR NON CARDIAC PAIN (4-10); Start at 21:00 Cefazolin Sodium (Ancef 1 Gm/50 ml (Pmx)) 50 ml @ 100 mls/hr Q24H IVPB Last administered on 10/04/16 22:10; Admin Dose 100 MLS/HR; Start 10/01/16 at 22:00 RAYNE FITCH MD Oct 05, 2016 15:42
--- NOTE | 2016-10-05 17:35 | PN ---
Date/Time of Note Date/Time of Note DATE: 10/05/16 TIME: 17:33 Assessment/Plan VTE Prophylaxis VTE Prophylaxis Intervention: SCD's Lines/Catheters [facility] Urinary Cath still in place: No Assessment/Plan Chief Complaint/Hosp Course 70 yo M with pmhx ESRD admitted for chest pain found to have STEMI, sp PCI x 2 from cardiology service, and bradycardia now permanent PM 5.. Also with an episode of AFib/flutter 5. #STEMI and bradycardia: Dr Lundy/cardiology service following. Cont acei, asa/plavix, statin #afib/flutter as per cardiology defer ATC decision to cardiology service #ESRD: renal following #DVT prophx: SCDs #DM2: cont basal/bolus insulin, decrease lantus to 10 units qHS per family rec ref for DM teaching #FEN: cardiac diet dispo as per cardiology service Problems: Subjective 24 Hr Interval Summary Free Text/Dictation Pt in good spirits this afternoon, multiple family members at bedside. Pt's son reports pt was diaphoretic overnight when his sugar was "too low" (160s per chart), he states pt's nl BGs in 300s. Exam/Review of Systems Vital Signs Vitals Vital Signs Date Time Temp Pulse Resp B/P Pulse Ox O2 Delivery O2 Flow Rate FiO2 10/05/16 16:04 98.3 89 19 131/60 98 10/05/16 07:37 Nasal Cannula 2.0 Intake and Output 10/04/16 10/04/16 10/05/16 15:00 23:00 07:00 Intake Total 950 ml Output Total 3500 ml Balance -2550 ml Exam nad, pleasant PM site c/d/i no mrg lungs clear abd soft no rashes Results Result Diagram: 10/03/16 0638 10/03/16 0638 Results 24 hrs Laboratory Tests Test 10/04/16 20:56 10/05/16 06:29 10/05/16 08:24 10/05/16 12:16 Bedside Glucose 175 166 152 139 Test 10/05/16 17:06 Bedside Glucose 139 Medications Medications Current Medications Aspirin (Halfprin) 81 mg DAILY PO Last administered on 10/05/16t 08:36; Admin Dose 81 MG; Start 09/28/16 at 09:00 Clopidogrel Bisulfate (plaVIX) 75 mg DAILY PO Last administered on 10/05/16 08: 36; Admin Dose 75 MG; Start 09/28/16 at 09:00 Ondansetron HCl (Zofran Inj) 4 mg Q6H PRN IV NAUSEA AND/OR VOMITING Last administered on 10/04/16 22:14; Admin Dose 4 MG; Start 09/27/16 at 13:00 Acetaminophen (Tylenol Tab) 650 mg Q6H PRN PO PAIN LEVEL 1-3 OR FEVER; Start at 13:30 Acetaminophen (Tylenol Supp) 650 mg Q6H PRN [place] PAIN LEVEL 1-3 OR FEVER; Start 09/27/16 at 13:30 Acetaminophen/ Hydrocodone Bitart ([place] (5/325)) 1 tab Q6H PRN PO MODERATE PAIN LEVEL 4-6 Last administered on 09/28/16 20:43; Admin Dose 1 TAB; Start at 13:30 Acetaminophen/ Hydrocodone Bitart ([place] (5/325)) 2 tab Q6H PRN PO SEVERE PAIN LEVEL 7-10; Start 09/27/16 at 13:30 Morphine Sulfate (morphine) 2 mg Q4H PRN IV SEVERE PAIN LEVEL 7-10; Start 09/27 at 13:30 Docusate Sodium (Colace) 100 mg Q12H PRN PO CONSTIPATION Last administered on 05:41; Admin Dose 100 MG; Start 09/27/16 at 13:30 Magnesium Hydroxide (Milk Of Mag) 30 ml DAILY PRN PO CONSTIPATION; Start at 13:30 Bisacodyl (Dulcolax Supp) 10 mg DAILY PRN [place] CONSTIPATION Last administered on 09/30/16 05:41; Admin Dose 10 MG; Start 09/27/16 at 13:30 Heparin Sodium (Porcine) (Heparin (5000 Units/0.5 ml)) 5,000 unit Q12 SC Last administered on 10/05/16 08:37; Admin Dose 5,000 UNIT; Start 09/27/16 at 21:00 Nitroglycerin (Nitroglycerin (Sl Tab) 0.4 Mg) 1 tab Q5M PRN SL CHEST PAIN; Start 09/27/16 at 13:30 Miscellaneous Information 1 ea NOTE XX ; Start 09/27/16 at 14:00 Glucose (Glutose) 15 gm Q15M PRN PO DECREASED GLUCOSE; Start 09/27/16 at 14:00 Glucose (Glutose) 22.5 gm Q15M PRN PO DECREASED GLUCOSE; Start 09/27/16 at 14: 00 Dextrose (D50w Syringe) 25 ml Q15M PRN IV DECREASED GLUCOSE; Start 09/27/16 at 14:00 Dextrose (D50w Syringe) 50 ml Q15M PRN IV DECREASED GLUCOSE; Start 09/27/16 at 14:00 Glucagon (Glucagen) 1 mg Q15M PRN IM DECREASED GLUCOSE; Start 09/27/16 at 14:00 Glucose (Glutose) 15 gm Q15M PRN BUCCAL DECREASED GLUCOSE; Start 09/27/16 at 14 :00 Atropine Sulfate (Atropine (Syringe)) 0.5 mg PRN PRN IV BRADYCARDIA (HR <40); Start 09/27/16 at 15:00 Atorvastatin Calcium (Lipitor) 80 mg HS PO Last administered on 10/04/16 21:01 ; Admin Dose 80 MG; Start 09/28/16 at 21:00 Lisinopril (Zestril) 5 mg DAILY PO Last administered on 10/05/16 08:36; Admin Dose 5 MG; Start 09/28/16 at 14:30 Insulin Glargine (Lantus) 15 unit DAILY@20 SC Last administered on 10/04/16 20: 59; Admin Dose 15 UNIT; Start 09/30/16 at 20:00 Polyethylene Glycol (Miralax) 17 gm DAILY PO Last administered on 10/05/16 08: 39; Admin Dose 17 GM; Start 09/30/16 at 15:00 Morphine Sulfate 2 mg 2 mg Q2H PRN IV FOR NON CARDIAC PAIN (4-10); Start at 21:00 Cefazolin Sodium (Ancef 1 Gm/50 ml (Pmx)) 50 ml @ 100 mls/hr Q24H IVPB Last administered on 10/04/16 22:10; Admin Dose 100 MLS/HR; Start 10/01/16 at 22:00 AMARILIS CONTRERAS MD Oct 05, 2016 17:35
[2016-10-05] MEDS ORDERED: INSULIN GLARGINE [LANtus] 3 ML PEN SC SCH (20:00)
[2016-10-05] MEDS: ATORVASTATIN 80 MG TAB PO SCH (20:31)
[2016-10-05] MEDS: INSULIN GLARGINE [LANtus] 3 ML PEN SC SCH (20:40)
[2016-10-05] MEDS: CEFAZOLIN 1 GM/50 ML (PMX) 50 ML IVPB SCH (22:04)
[2016-10-06] VITALS (11 sets, daily range): BP systolic 105–123; BP diastolic 47–73; PULSE 74–91; RESP 16–20
[2016-10-06] MEDS: INSULIN ASPART [NOVOLOG] 3 ML PEN SC SCH ×7 (08:00→20:46)
--- NOTE | 2016-10-06 08:12 | CONS ---
Date/Time of Note Date/Time of Note DATE: 10/06/16 TIME: 08:10 Consult Date/Type/Reason Admit Date/Time September 27, 2016 at 12:23 Initial Consult Date 06/30/2016 Type of Consultation: Card Ordering Provider: HUNTER BASSETT MD Objective Vital Signs Date Time Temp Pulse Resp B/P Pulse Ox O2 Delivery O2 Flow Rate FiO2 10/06/16 07:46 99.6 89 18 105/47 98 10/06/16 00:41 3.0 10/05/16 20:30 Nasal Cannula Intake and Output 10/05/16 10/05/16 10/06/16 15:00 23:00 07:00 Intake Total 450 ml Balance 450 ml Results/Medications Result Diagram: 10/03/16 0638 10/03/16 0638 Results 24 hrs Laboratory Tests Test 10/05/16 08:24 10/05/16 12:16 10/05/16 17:06 10/05/16 20:30 Bedside Glucose 152 139 139 165 Test 10/06/16 02:33 Bedside Glucose 152 Medications Current Medications Aspirin (Halfprin) 81 mg DAILY PO Last administered on 10/05/16 08:36; Admin Dose 81 MG; Start 09/28/16 at 09:00 Clopidogrel Bisulfate (plaVIX) 75 mg DAILY PO Last administered on 10/05/16 08: 36; Admin Dose 75 MG; Start 09/28/16 at 09:00 Ondansetron HCl (Zofran Inj) 4 mg Q6H PRN IV NAUSEA AND/OR VOMITING Last administered on 10/04/16 22:14; Admin Dose 4 MG; Start 09/27/16 at 13:00 Acetaminophen (Tylenol Tab) 650 mg Q6H PRN PO PAIN LEVEL 1-3 OR FEVER; Start at 13:30 Acetaminophen (Tylenol Supp) 650 mg Q6H PRN [place] PAIN LEVEL 1-3 OR FEVER; Start 09/27/16 at 13:30 Acetaminophen/ Hydrocodone Bitart ([place] (5/325)) 1 tab Q6H PRN PO MODERATE PAIN LEVEL 4-6 Last administered on 09/28/16 20:43; Admin Dose 1 TAB; Start at 13:30 Acetaminophen/ Hydrocodone Bitart ([place] (5/325)) 2 tab Q6H PRN PO SEVERE PAIN LEVEL 7-10; Start 09/27/16 at 13:30 Morphine Sulfate (morphine) 2 mg Q4H PRN IV SEVERE PAIN LEVEL 7-10; Start 09/27 at 13:30 Docusate Sodium (Colace) 100 mg Q12H PRN PO CONSTIPATION Last administered on 05:41; Admin Dose 100 MG; Start 09/27/16 at 13:30 Magnesium Hydroxide (Milk Of Mag) 30 ml DAILY PRN PO CONSTIPATION; Start at 13:30 Bisacodyl (Dulcolax Supp) 10 mg DAILY PRN [place] CONSTIPATION Last administered on 09/30/16 05:41; Admin Dose 10 MG; Start 09/27/16 at 13:30 Heparin Sodium (Porcine) (Heparin (5000 Units/0.5 ml)) 5,000 unit Q12 SC Last administered on 10/05/16 20:40; Admin Dose 5,000 UNIT; Start 09/27/16 at 21:00 Nitroglycerin (Nitroglycerin (Sl Tab) 0.4 Mg) 1 tab Q5M PRN SL CHEST PAIN; Start 09/27/16 at 13:30 Miscellaneous Information 1 ea NOTE XX ; Start 09/27/16 at 14:00 Glucose (Glutose) 15 gm Q15M PRN PO DECREASED GLUCOSE; Start 09/27/16 at 14:00 Glucose (Glutose) 22.5 gm Q15M PRN PO DECREASED GLUCOSE; Start 09/27/16 at 14: 00 Dextrose (D50w Syringe) 25 ml Q15M PRN IV DECREASED GLUCOSE; Start 09/27/16 at 14:00 Dextrose (D50w Syringe) 50 ml Q15M PRN IV DECREASED GLUCOSE; Start 09/27/16 at 14:00 Glucagon (Glucagen) 1 mg Q15M PRN IM DECREASED GLUCOSE; Start 09/27/16 at 14:00 Glucose (Glutose) 15 gm Q15M PRN BUCCAL DECREASED GLUCOSE; Start 09/27/16 at 14 :00 Atropine Sulfate (Atropine (Syringe)) 0.5 mg PRN PRN IV BRADYCARDIA (HR <40); Start 09/27/16 at 15:00 Atorvastatin Calcium (Lipitor) 80 mg HS PO Last administered on 10/05/16 20:31 ; Admin Dose 80 MG; Start 09/28/16 at 21:00 Lisinopril (Zestril) 5 mg DAILY PO Last administered on 10/05/16 08:36; Admin Dose 5 MG; Start 09/28/16 at 14:30 Polyethylene Glycol (Miralax) 17 gm DAILY PO Last administered on 10/05/16 08: 39; Admin Dose 17 GM; Start 09/30/16 at 15:00 Morphine Sulfate 2 mg 2 mg Q2H PRN IV FOR NON CARDIAC PAIN (4-10); Start at 21:00 Cefazolin Sodium (Ancef 1 Gm/50 ml (Pmx)) 50 ml @ 100 mls/hr Q24H IVPB Last administered on 10/05/16 22:04; Admin Dose 100 MLS/HR; Start 10/01/16 at 22:00 Insulin Glargine (Lantus) 10 unit DAILY@20 SC Last administered on 10/05/16 20: 40; Admin Dose 10 UNIT; Start 10/05/16 at 20:00 Assessment/Plan Chief Complaint/Hosp Course Pt with RCA STEMI s/p PCI of RCA x 2 BUNNY ASA Plavix Problems: Additional Assessment/Plan Pt is stable out of bed to chair PT today PPM site looks good stable ASA Plavix LOBITO, Statin will hold BB now due to low BP will add out pt once stable plan to d/c as per PT rec HUNTER BASSETT MD Oct 06, 2016 08:12
--- NOTE | 2016-10-06 09:30 | CONS ---
Date/Time of Note Date/Time of Note DATE: 10/06/16 TIME: 09:29 Assessment/Plan Assessment/Plan Additional Assessment/Plan 1. Acute ST-elevation myocardial infarction, status post cardiac catheterization with 2 stents placed in the right coronary artery. 2. End-stage renal disease on hemodialysis 3 times a week. 3. Hypertension. 4. Diabetes mellitus type 2. 5. Bradycardia, severe, status post atropine in ICU.,s/p pacemaker placement PLAN: HD ordered for tomorrow pt regular schedule fo r HD is , and Thursday will conitnue to follow up on patient Consultation Date/Type/Reason Admit Date/Time September 27, 2016 at 12:23 Type of Consultation: NEPHROLOGY Referring Provider: HUNTRE BASSETT MD 24 HR Interval Summary Free Text/Dictation no acute events overnight, BP stable, afebrile, Exam/Review of Systems Vital Signs Vitals Vital Signs Date Time Temp Pulse Resp B/P Pulse Ox O2 Delivery O2 Flow Rate FiO2 10/06/16 09:00 87 10/06/16 07:46 99.6 18 105/47 98 10/06/16 00:41 3.0 10/05/16 20:30 Nasal Cannula Intake and Output 10/05/16 10/05/16 10/06/16 15:00 23:00 07:00 Intake Total 450 ml Balance 450 ml Exam Constitutional: alert Psych: no complaints Head: normocephalic Neck: supple Respiratory: clear to auscultation, diminished breath sounds Cardiovascular: nl pulses, regular rate and rhythm Gastrointestinal: non-tender, soft Musculoskeletal: nl extremities to inspection Extremities: normal pulses, + right pacemaker, Left AVF Neurological: PERIODICALS CLERK II-XII intact Results Result Diagram: 10/03/1638 10/03/1638 Results 24 hrs Laboratory Tests Test 10/05/16 12:16 10/05/16 17:06 10/05/16 20:30 10/06/16 02:33 Bedside Glucose 139 139 165 152 Test 10/06/16 08:44 Bedside Glucose 132 Medications Medications Current Medications Aspirin (Halfprin) 81 mg DAILY PO Last administered on 10/05/16 08:36; Admin Dose 81 MG; Start 09/28/16 at 09:00 Clopidogrel Bisulfate (plaVIX) 75 mg DAILY PO Last administered on 10/05/16 08: 36; Admin Dose 75 MG; Start 09/28/16 at 09:00 Ondansetron HCl (Zofran Inj) 4 mg Q6H PRN IV NAUSEA AND/OR VOMITING Last administered on 10/04/16 22:14; Admin Dose 4 MG; Start 09/27/16 at 13:00 Acetaminophen (Tylenol Tab) 650 mg Q6H PRN PO PAIN LEVEL 1-3 OR FEVER; Start at 13:30 Acetaminophen (Tylenol Supp) 650 mg Q6H PRN [place] PAIN LEVEL 1-3 OR FEVER; Start 09/27/16 at 13:30 Acetaminophen/ Hydrocodone Bitart ([place] (5/325)) 1 tab Q6H PRN PO MODERATE PAIN LEVEL 4-6 Last administered on 09/28/16 20:43; Admin Dose 1 TAB; Start at 13:30 Acetaminophen/ Hydrocodone Bitart ([place] (5/325)) 2 tab Q6H PRN PO SEVERE PAIN LEVEL 7-10; Start 09/27/16 at 13:30 Morphine Sulfate (morphine) 2 mg Q4H PRN IV SEVERE PAIN LEVEL 7-10; Start 09/27 at 13:30 Docusate Sodium (Colace) 100 mg Q12H PRN PO CONSTIPATION Last administered on 05:41; Admin Dose 100 MG; Start 09/27/16 at 13:30 Magnesium Hydroxide (Milk Of Mag) 30 ml DAILY PRN PO CONSTIPATION; Start at 13:30 Bisacodyl (Dulcolax Supp) 10 mg DAILY PRN [place] CONSTIPATION Last administered on 09/30/16 05:41; Admin Dose 10 MG; Start 09/27/16 at 13:30 Heparin Sodium (Porcine) (Heparin (5000 Units/0.5 ml)) 5,000 unit Q12 SC Last administered on 10/05/16 20:40; Admin Dose 5,000 UNIT; Start 09/27/16 at 21:00 Nitroglycerin (Nitroglycerin (Sl Tab) 0.4 Mg) 1 tab Q5M PRN SL CHEST PAIN; Start 09/27/16 at 13:30 Miscellaneous Information 1 ea NOTE XX ; Start 09/27/16 at 14:00 Glucose (Glutose) 15 gm Q15M PRN PO DECREASED GLUCOSE; Start 09/27/16 at 14:00 Glucose (Glutose) 22.5 gm Q15M PRN PO DECREASED GLUCOSE; Start 09/27/16 at 14: 00 Dextrose (D50w Syringe) 25 ml Q15M PRN IV DECREASED GLUCOSE; Start 09/27/16 at 14:00 Dextrose (D50w Syringe) 50 ml Q15M PRN IV DECREASED GLUCOSE; Start 09/27/16 at 14:00 Glucagon (Glucagen) 1 mg Q15M PRN IM DECREASED GLUCOSE; Start 09/27/16 at 14:00 Glucose (Glutose) 15 gm Q15M PRN BUCCAL DECREASED GLUCOSE; Start 09/27/16 at 14 :00 Atropine Sulfate (Atropine (Syringe)) 0.5 mg PRN PRN IV BRADYCARDIA (HR <40); Start 09/27/16 at 15:00 Atorvastatin Calcium (Lipitor) 80 mg HS PO Last administered on 10/05/16 20:31 ; Admin Dose 80 MG; Start 09/28/16 at 21:00 Lisinopril (Zestril) 5 mg DAILY PO Last administered on 10/05/16 08:36; Admin Dose 5 MG; Start 09/28/16 at 14:30 Polyethylene Glycol (Miralax) 17 gm DAILY PO Last administered on 10/05/16 08: 39; Admin Dose 17 GM; Start 09/30/16 at 15:00 Morphine Sulfate 2 mg 2 mg Q2H PRN IV FOR NON CARDIAC PAIN (4-10); Start at 21:00 Cefazolin Sodium (Ancef 1 Gm/50 ml (Pmx)) 50 ml @ 100 mls/hr Q24H IVPB Last administered on 10/05/16 22:04; Admin Dose 100 MLS/HR; Start 10/01/16 at 22:00 Insulin Glargine (Lantus) 10 unit DAILY@20 SC Last administered on 10/05/16 20: 40; Admin Dose 10 UNIT; Start 10/05/16 at 20:00 RAYNE FITCH MD Oct 06, 2016 09:30
[2016-10-06] MEDS: CLOPIDOGREL 75 MG TAB PO SCH (09:41)
[2016-10-06] MEDS: ASPIRIN (EC) 81 MG TAB PO SCH (09:41)
[2016-10-06] MEDS: POLYETHYLENE GLYCOL 17 GM PACKET PO SCH (09:42)
[2016-10-06] MEDS: LISINOPRIL 5 MG TAB PO SCH (09:42)
[2016-10-06] MEDS: HEPARIN 5,000 UNIT/0.5 ML VIAL SC SCH ×2 (09:49→20:44)
--- NOTE | 2016-10-06 16:22 | PN ---
Date/Time of Note Date/Time of Note DATE: 10/06/16 TIME: 16:14 Assessment/Plan VTE Prophylaxis VTE Prophylaxis Intervention: heparin Lines/Catheters [facility] Saline Lock Urinary Cath still in place: No Assessment/Plan Assessment/Plan 1. Acute ST-elevation myocardial infarction, status post cardiac catheterization with 2 stents placed in the right coronary artery, stable 2. End-stage renal disease on hemodialysis HD per nephrology 3. Hypertension, stable 4. Diabetes mellitus type 2, on insulins 5. Bradycardia, severe, s/p pacemaker placement 6. DVT prophylaxis: heparin Subjective 24 Hr Interval Summary Free Text/Dictation no chest pain or SOB. Weak Exam/Review of Systems Vital Signs Vitals Vital Signs Date Time Temp Pulse Resp B/P Pulse Ox O2 Delivery O2 Flow Rate FiO2 10/06/16 13:07 91 10/06/16 11:24 98.2 18 122/73 90 10/06/16 00:41 3.0 10/05/16 20:30 Nasal Cannula Intake and Output 10/05/16 10/05/16 10/06/16 15:00 23:00 07:00 Intake Total 450 ml Balance 450 ml Exam Constitutional: alert, oriented, well developed Psych: nl mood/affect, no complaints Head: atraumatic, normocephalic Eyes: EOMI, nl conjunctiva, nl lids ENMT: nl external ears & nose, nl lips & teeth, nl nasal mucosa & septum Neck: non-tender, supple Respiratory: clear to auscultation, normal air movement, No congested cough, No crackles/rales, No diminished breath sounds, No intercostal retraction, No labored breathing, No other, No respirations, No tactile fremitus, No wheezing Cardiovascular: nl pulses, regular rate and rhythm, No S3, No S4, No bruits, No diastolic murmur, No edema, No gallop, No irregular rhythm, No jugular venous distention (JVD), No murmurs/extra sounds, No other, No rub, No systolic murmur Gastrointestinal: nl liver, spleen, non-tender, soft, No ascites, No bowel sounds, No distended, No firm, No hepatomegaly, No mass , No other, No rebound or guarding, No splenomegaly, No surgical scars, No tender Musculoskeletal: nl extremities to inspection Extremities: normal pulses, No calf tenderness, No clubbing, No cyanosis, No edema, No other, No palpable cord, No pitting pedal edema, No tenderness Neurological: PEARL RESTORER II-XII intact, nl mental status, nl speech, nl strength Skin: nl turgor Lymph: nl lymph nodes Results Result Diagram: 10/03/16 0638 10/03/16 0638 Results 24 hrs Laboratory Tests Test 10/05/16 17:06 10/05/16 20:30 10/06/16 02:33 10/06/16 08:44 Bedside Glucose 139 165 152 132 Test 10/06/16 12:17 Bedside Glucose 233 H Medications Medications Current Medications Aspirin (Halfprin) 81 mg DAILY PO Last administered on 10/06/16 09:41; Admin Dose 81 MG; Start 09/28/16 at 09:00 Clopidogrel Bisulfate (plaVIX) 75 mg DAILY PO Last administered on 10/06/16 09: 41; Admin Dose 75 MG; Start 09/28/16 at 09:00 Ondansetron HCl (Zofran Inj) 4 mg Q6H PRN IV NAUSEA AND/OR VOMITING Last administered on 10/04/16 22:14; Admin Dose 4 MG; Start 09/27/16 at 13:00 Acetaminophen (Tylenol Tab) 650 mg Q6H PRN PO PAIN LEVEL 1-3 OR FEVER; Start at 13:30 Acetaminophen (Tylenol Supp) 650 mg Q6H PRN [place] PAIN LEVEL 1-3 OR FEVER; Start 09/27/16 at 13:30 Acetaminophen/ Hydrocodone Bitart ([place] (5/325)) 1 tab Q6H PRN PO MODERATE PAIN LEVEL 4-6 Last administered on 09/28/16 20:43; Admin Dose 1 TAB; Start at 13:30 Acetaminophen/ Hydrocodone Bitart ([place] (5/325)) 2 tab Q6H PRN PO SEVERE PAIN LEVEL 7-10; Start 09/27/16 at 13:30 Morphine Sulfate (morphine) 2 mg Q4H PRN IV SEVERE PAIN LEVEL 7-10; Start 09/27 at 13:30 Docusate Sodium (Colace) 100 mg Q12H PRN PO CONSTIPATION Last administered on 05:41; Admin Dose 100 MG; Start 09/27/16 at 13:30 Magnesium Hydroxide (Milk Of Mag) 30 ml DAILY PRN PO CONSTIPATION; Start at 13:30 Bisacodyl (Dulcolax Supp) 10 mg DAILY PRN [place] CONSTIPATION Last administered on 09/30/16 05:41; Admin Dose 10 MG; Start 09/27/16 at 13:30 Heparin Sodium (Porcine) (Heparin (5000 Units/0.5 ml)) 5,000 unit Q12 SC Last administered on 10/06/16 09:49; Admin Dose 5,000 UNIT; Start 09/27/16 at 21:00 Nitroglycerin (Nitroglycerin (Sl Tab) 0.4 Mg) 1 tab Q5M PRN SL CHEST PAIN; Start 09/27/16 at 13:30 Miscellaneous Information 1 ea NOTE XX ; Start 09/27/16 at 14:00 Glucose (Glutose) 15 gm Q15M PRN PO DECREASED GLUCOSE; Start 09/27/16 at 14:00 Glucose (Glutose) 22.5 gm Q15M PRN PO DECREASED GLUCOSE; Start 09/27/16 at 14: 00 Dextrose (D50w Syringe) 25 ml Q15M PRN IV DECREASED GLUCOSE; Start 09/27/16 at 14:00 Dextrose (D50w Syringe) 50 ml Q15M PRN IV DECREASED GLUCOSE; Start 09/27/16 at 14:00 Glucagon (Glucagen) 1 mg Q15M PRN IM DECREASED GLUCOSE; Start 09/27/16 at 14:00 Glucose (Glutose) 15 gm Q15M PRN BUCCAL DECREASED GLUCOSE; Start 09/27/16 at 14 :00 Atropine Sulfate (Atropine (Syringe)) 0.5 mg PRN PRN IV BRADYCARDIA (HR <40); Start 09/27/16 at 15:00 Atorvastatin Calcium (Lipitor) 80 mg HS PO Last administered on 10/05/16 20:31 ; Admin Dose 80 MG; Start 09/28/16 at 21:00 Lisinopril (Zestril) 5 mg DAILY PO Last administered on 10/06/16 09:42; Admin Dose 5 MG; Start 09/28/16 at 14:30 Polyethylene Glycol (Miralax) 17 gm DAILY PO Last administered on 10/06/16 09: 42; Admin Dose 17 GM; Start 09/30/16 at 15:00 Morphine Sulfate 2 mg 2 mg Q2H PRN IV FOR NON CARDIAC PAIN (4-10); Start at 21:00 Cefazolin Sodium (Ancef 1 Gm/50 ml (Pmx)) 50 ml @ 100 mls/hr Q24H IVPB Last administered on 10/05/16 22:04; Admin Dose 100 MLS/HR; Start 10/01/16 at 22:00 Insulin Glargine (Lantus) 10 unit DAILY@20 SC Last administered on 10/05/16 20: 40; Admin Dose 10 UNIT; Start 10/05/16 at 20:00 LINSEY NICOLAS MD Oct 06, 2016 16:22
[2016-10-06] MEDS: ATORVASTATIN 80 MG TAB PO SCH (20:42)
[2016-10-06] MEDS: INSULIN GLARGINE [LANtus] 3 ML PEN SC SCH (20:45)
[2016-10-06] MEDS ORDERED: HEPARIN 5,000 UNIT/0.5 ML VIAL SC SCH (21:00)
[2016-10-06] MEDS: CEFAZOLIN 1 GM/50 ML (PMX) 50 ML IVPB SCH (21:40)
[2016-10-07] VITALS (22 sets, daily range): BP systolic 89–179; BP diastolic 43–89; PULSE 70–145; RESP 18–19
[2016-10-07 08:25] LABS: ADD SCAN DIFF NO
[2016-10-07 08:28] LABS: BASOPHILS % 0.3 % (0.0-2.0); EOSINOPHILS # 0.3 10^3/ul (0.0-0.5); EOSINOPHILS % 4.3 % (0.0-7.0); HEMATOCRIT 29.7 % (42.0-52.0); HEMOGLOBIN 9.2 g/dl (14.0-18.0); LYMPHOCYTES # 1.1 10^3/ul (0.8-2.9); LYMPHOCYTES % 16.3 % (15.0-51.0); MEAN CORPUSCULAR HEMOGLOBIN 26.1 pg (29.0-33.0); MEAN CORPUSCULAR VOLUME 84.1 fl (82.0-101.0); MEAN PLATELET VOLUME 10.8 fl (7.4-10.4); MONOCYTE # 0.4 10^3/ul (0.3-0.9); MONOCYTES % 6.3 % (0.0-11.0); NEUTROPHILS % 70.9 % (39.0-77.0); PLATELET COUNT 242 10^3/UL (140-415); RED BLOOD COUNT 3.53 10^6/ul (4.70-6.10); RED CELL DISTRIBUTION WIDTH 15.4 % (11.5-14.5)
[2016-10-07] MEDS: LISINOPRIL 5 MG TAB PO SCH (09:00)
[2016-10-07] MEDS: INSULIN ASPART [NOVOLOG] 3 ML PEN SC SCH ×7 (09:18→20:57)
[2016-10-07] MEDS: CLOPIDOGREL 75 MG TAB PO SCH (09:19)
[2016-10-07] MEDS: HEPARIN 5,000 UNIT/0.5 ML VIAL SC SCH ×2 (09:20→21:00)
[2016-10-07 09:21] LABS: CALCIUM 8.4 mg/dl (8.4-10.2); CREATININE 7.09 mg/dl (0.61-1.24); POTASSIUM 3.8 mmol/L (3.5-5.1)
[2016-10-07] MEDS: ASPIRIN (EC) 81 MG TAB PO SCH (09:21)
[2016-10-07] MEDS: POLYETHYLENE GLYCOL 17 GM PACKET PO SCH (09:21)
[2016-10-07] MEDS ORDERED: ALBUMIN HUMAN 25% 100 ML IV ONE (10:30)
--- NOTE | 2016-10-07 16:01 | PN ---
Date/Time of Note Date/Time of Note DATE: 10/07/16 TIME: 15:52 Assessment/Plan VTE Prophylaxis VTE Prophylaxis Intervention: heparin Lines/Catheters IV [facility]ter Type [facility]from [facility]): [place] [facility] Urinary Cath still in place: No Assessment/Plan Assessment/Plan 1. Paroxysmal atrial fibrillation, add metoprolol, needs anticoagulant per cardiology 2. Acute ST-elevation myocardial infarction, status post cardiac catheterization with 2 stents placed in the right coronary artery, stable 3. End-stage renal disease on hemodialysis HD per nephrology 4. Hypertension, stable 5. Diabetes mellitus type 2, on insulins 6. Bradycardia, severe, s/p pacemaker placement 7. DVT prophylaxis: heparin Subjective 24 Hr Interval Summary Free Text/Dictation palpitation. Exam/Review of Systems Vital Signs Vitals Vital Signs Date Time Temp Pulse Resp B/P Pulse Ox O2 Delivery O2 Flow Rate FiO2 10/07/16 15:20 98.0 19 100/49 98 10/07/16 12:50 128 10/07/16 00:50 3.0 10/06/16 20:00 Nasal Cannula Intake and Output 10/06/16 10/06/16 10/07/16 15:00 23:00 07:00 Intake Total 240 ml 650 ml 300 ml Balance 240 ml 650 ml 300 ml Exam Constitutional: alert, oriented, well developed Psych: nl mood/affect, no complaints Head: atraumatic, normocephalic Eyes: EOMI, nl conjunctiva, nl lids ENMT: nl external ears & nose, nl lips & teeth, nl nasal mucosa & septum Neck: non-tender, supple Respiratory: clear to auscultation, normal air movement, No congested cough, No crackles/rales, No diminished breath sounds, No intercostal retraction, No labored breathing, No other, No respirations, No tactile fremitus, No wheezing Cardiovascular: nl pulses, regular rate and rhythm, No S3, No S4, No bruits, No diastolic murmur, No edema, No gallop, No irregular rhythm, No jugular venous distention (JVD), No murmurs/extra sounds, No other, No rub, No systolic murmur Gastrointestinal: nl liver, spleen, non-tender, soft, No ascites, No bowel sounds, No distended, No firm, No hepatomegaly, No mass , No other, No rebound or guarding, No splenomegaly, No surgical scars, No tender Musculoskeletal: nl extremities to inspection Extremities: normal pulses, No calf tenderness, No clubbing, No cyanosis, No edema, No other, No palpable cord, No pitting pedal edema, No tenderness 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, nl mental status, nl speech, nl strength Skin: nl turgor Lymph: nl lymph nodes Results Result Diagram: 10/07/16 0715 10/07/16 0715 Results 24 hrs Laboratory Tests Test 10/06/16 17:40 10/06/16 20:27 10/07/16 03:33 10/07/16 07:15 Bedside Glucose 137 133 145 White Blood Count 7.0 Red Blood Count 3.53 L Hemoglobin 9.2 L Hematocrit 29.7 L Mean Corpuscular Volume 84.1 Mean Corpuscular Hemoglobin 26.1 L Mean Corpuscular Hemoglobin Concent 31.0 L Red Cell Distribution Width 15.4 H Platelet Count 242 # Mean Platelet Volume 10.8 H Neutrophils % 70.9 Lymphocytes % 16.3 Monocytes % 6.3 Eosinophils % 4.3 Basophils % 0.3 Nucleated Red Blood Cells % 0.0 Neutrophils # 5.0 Lymphocytes # 1.1 Monocytes # 0.4 Eosinophils # 0.3 Basophils # 0.0 Nucleated Red Blood Cells # 0.0 Sodium Level 140 Potassium Level 3.8 Chloride Level 102 Carbon Dioxide Level 26 Anion Gap 16 Blood Urea Nitrogen 65 H Creatinine 7.09 H Glucose Level 126 Calcium Level 8.4 Test 10/07/16 08:37 10/07/16 12:14 Bedside Glucose 157 139 Medications Medications Current Medications Aspirin (Halfprin) 81 mg DAILY PO Last administered on 10/07/16 09:21; Admin Dose 81 MG; Start 09/28/16 at 09:00 Clopidogrel Bisulfate (plaVIX) 75 mg DAILY PO Last administered on 10/07/16 09: 19; Admin Dose 75 MG; Start 09/28/16 at 09:00 Ondansetron HCl (Zofran Inj) 4 mg Q6H PRN IV NAUSEA AND/OR VOMITING Last administered on 10/04/16 22:14; Admin Dose 4 MG; Start 09/27/16 at 13:00 Acetaminophen (Tylenol Tab) 650 mg Q6H PRN PO PAIN LEVEL 1-3 OR FEVER; Start at 13:30 Acetaminophen (Tylenol Supp) 650 mg Q6H PRN [place] PAIN LEVEL 1-3 OR FEVER; Start 09/27/16 at 13:30 Acetaminophen/ Hydrocodone Bitart ([place] (5/325)) 1 tab Q6H PRN PO MODERATE PAIN LEVEL 4-6 Last administered on 09/28/16 20:43; Admin Dose 1 TAB; Start at 13:30 Acetaminophen/ Hydrocodone Bitart ([place] (5/325)) 2 tab Q6H PRN PO SEVERE PAIN LEVEL 7-10; Start 09/27/16 at 13:30 Morphine Sulfate (morphine) 2 mg Q4H PRN IV SEVERE PAIN LEVEL 7-10; Start 09/27 at 13:30 Docusate Sodium (Colace) 100 mg Q12H PRN PO CONSTIPATION Last administered on 05:41; Admin Dose 100 MG; Start 09/27/16 at 13:30 Magnesium Hydroxide (Milk Of Mag) 30 ml DAILY PRN PO CONSTIPATION; Start at 13:30 Bisacodyl (Dulcolax Supp) 10 mg DAILY PRN [place] CONSTIPATION Last administered on 09/30/16 05:41; Admin Dose 10 MG; Start 09/27/16 at 13:30 Heparin Sodium (Porcine) (Heparin (5000 Units/0.5 ml)) 5,000 unit Q12 SC Last administered on 10/07/16 09:20; Admin Dose 5,000 UNIT; Start 09/27/16 at 21:00 Nitroglycerin (Nitroglycerin (Sl Tab) 0.4 Mg) 1 tab Q5M PRN SL CHEST PAIN; Start 09/27/16 at 13:30 Miscellaneous Information 1 ea NOTE XX ; Start 09/27/16 at 14:00 Glucose (Glutose) 15 gm Q15M PRN PO DECREASED GLUCOSE; Start 09/27/16 at 14:00 Glucose (Glutose) 22.5 gm Q15M PRN PO DECREASED GLUCOSE; Start 09/27/16 at 14: 00 Dextrose (D50w Syringe) 25 ml Q15M PRN IV DECREASED GLUCOSE; Start 09/27/16 at 14:00 Dextrose (D50w Syringe) 50 ml Q15M PRN IV DECREASED GLUCOSE; Start 09/27/16 at 14:00 Glucagon (Glucagen) 1 mg Q15M PRN IM DECREASED GLUCOSE; Start 09/27/16 at 14:00 Glucose (Glutose) 15 gm Q15M PRN BUCCAL DECREASED GLUCOSE; Start 09/27/16 at 14 :00 Atropine Sulfate (Atropine (Syringe)) 0.5 mg PRN PRN IV BRADYCARDIA (HR <40); Start 09/27/16 at 15:00 Atorvastatin Calcium (Lipitor) 80 mg HS PO Last administered on 10/06/16 20:42 ; Admin Dose 80 MG; Start 09/28/16 at 21:00 Lisinopril (Zestril) 5 mg DAILY PO Last administered on 10/06/16 09:42; Admin Dose 5 MG; Start 09/28/16 at 14:30 Polyethylene Glycol (Miralax) 17 gm DAILY PO Last administered on 10/07/16 09: 21; Admin Dose 17 GM; Start 09/30/16 at 15:00 Morphine Sulfate 2 mg 2 mg Q2H PRN IV FOR NON CARDIAC PAIN (4-10); Start at 21:00 Cefazolin Sodium (Ancef 1 Gm/50 ml (Pmx)) 50 ml @ 100 mls/hr Q24H IVPB Last administered on 10/06/16 21:40; Admin Dose 100 MLS/HR; Start 10/01/16 at 22:00 Insulin Glargine (Lantus) 10 unit DAILY@20 SC Last administered on 10/06/16 20: 45; Admin Dose 10 UNIT; Start 10/05/16 at 20:00 LINSEY NICOLAS MD Oct 07, 2016 16:01
--- NOTE | 2016-10-07 19:35 | RADRPT ---
Echocardiogram Report Patient Name: WENDY NGUYEN Gender: Male Date: 1945 Study Date: 07-Oct-2016 Binder Operator: Manny Norton [facility] Location: [id number] Ref. Physician: RAE LUNDY Quality: Good Procedures: Transthoracic echocardiogram with complete 2D, M-Mode, and doppler examination. Indications: Evaluate Left Ventricular function. 2D/M Mode Doppler Measurement Value Normal Ranges Measurement Value Normal Ranges LVIDd 2D 5.2 3.5 - 5.6 cm AV Peak Carlos 1.4 m/sec LVIDs 2D 3.8 2.1 - 4.1 cm AV Peak PG 8.0 mmHg FS 2D 27.9 % LVOT Peak Carlos 1.3 m/sec LVPWd 2D 1.1 0.6 - 1.1 cm LVOT Peak PG 6.0 mmHg IVSd 2D 1.2 0.6 - 1.1 cm MV E Peak Carlos 1.0 m/sec IVS/LVPW 2D 1.1 MV A Peak Carlos 1.1 m/sec AoR Diam 2D 2.5 2.0 - 3.7 cm MV E/A 0.9 LA/Ao 2D 2 0 - 1 MV Decel Time 169 msec EDV 2D 144.0 cm3 MV E/A 0.9 ESV 2D 54.0 cm3 LA Dimen 2D 4.1 2.3 - 4.0 cm Findings Left Ventricle: Normal left ventricular systolic function. Normal left ventricular cavity size. Mild concentric left ventricular hypertrophy. Ejection fraction is visually estimated at 65 %. Tissue Doppler/Mitral Doppler indices are consistent with impaired relaxation (Stage I diastolic dysfunction). Right Ventricle: Normal right ventricular size. Normal right ventricular systolic function. Left Atrium: The left atrium is normal in size. Right Atrium: The right atrium is normal in size. Mitral Valve: Mild mitral leaflet calcification. Mild mitral annular calcification. Mild mitral valve regurgitation. Aortic Valve: Normal appearance of the aortic valve. No significant aortic stenosis or insufficiency. Tricuspid Valve: Normal appearance of the tricuspid valve. Unable to obtain RVSP due to minimal presence of tricuspid regurgitation. Pulmonic Valve: Normal pulmonic valve appearance. Pericardium: Normal pericardium with no significant pericardial effusion. Aorta: Normal aortic root. IVC: Normal size and normal respiratory collapse consistent with normal right atrial pressure. Conclusions Normal left ventricular systolic function. Normal left ventricular cavity size. Mild concentric left ventricular hypertrophy. Ejection fraction is visually estimated at 65 %. Tissue Doppler/Mitral Doppler indices are consistent with impaired relaxation (Stage I diastolic dysfunction). Normal right ventricular size. Normal right ventricular systolic function. Mild mitral leaflet calcification. Mild mitral annular calcification. Mild mitral valve regurgitation. Normal appearance of the aortic valve. No significant aortic stenosis or insufficiency. Normal appearance of the tricuspid valve. Unable to obtain RVSP due to minimal presence of tricuspid regurgitation. Electronically Signed By: Rae Lundy 07-Oct-2016 19:34:07 -0700 Patient Name: WENDY NGUYEN Study Date: 07-Oct-2016 [id number]
--- NOTE | 2016-10-07 19:41 | CONS ---
Date/Time of Note Date/Time of Note DATE: 10/07/16 TIME: 19:36 Consult Date/Type/Reason Admit Date/Time September 27, 2016 at 12:23 Initial Consult Date 06/30/2016 Type of Consultation: Card Ordering Provider: HUNTER BASSETT MD Objective Vital Signs Date Time Temp Pulse Resp B/P Pulse Ox O2 Delivery O2 Flow Rate FiO2 10/07/16 17:08 89 10/07/16 15:20 98.0 19 100/49 98 10/07/16 08:30 Nasal Cannula 2.0 Intake and Output 10/06/16 10/06/16 10/07/16 15:00 23:00 07:00 Intake Total 240 ml 650 ml 300 ml Balance 240 ml 650 ml 300 ml Results/Medications Result Diagram: 10/07/16 0715 10/07/16 0715 Results 24 hrs Laboratory Tests Test 10/06/16 20:27 10/07/16 03:33 10/07/16 07:15 10/07/16 08:37 Bedside Glucose 133 145 157 White Blood Count 7.0 Red Blood Count 3.53 L Hemoglobin 9.2 L Hematocrit 29.7 L Mean Corpuscular Volume 84.1 Mean Corpuscular Hemoglobin 26.1 L Mean Corpuscular Hemoglobin Concent 31.0 L Red Cell Distribution Width 15.4 H Platelet Count 242 # Mean Platelet Volume 10.8 H Neutrophils % 70.9 Lymphocytes % 16.3 Monocytes % 6.3 Eosinophils % 4.3 Basophils % 0.3 Nucleated Red Blood Cells % 0.0 Neutrophils # 5.0 Lymphocytes # 1.1 Monocytes # 0.4 Eosinophils # 0.3 Basophils # 0.0 Nucleated Red Blood Cells # 0.0 Sodium Level 140 Potassium Level 3.8 Chloride Level 102 Carbon Dioxide Level 26 Anion Gap 16 Blood Urea Nitrogen 65 H Creatinine 7.09 H Glucose Level 126 Calcium Level 8.4 Test 10/07/16 12:14 10/07/16 18:07 Bedside Glucose 139 223 H Medications Current Medications Aspirin (Halfprin) 81 mg DAILY PO Last administered on 10/07/16 09:21; Admin Dose 81 MG; Start 09/28/16 at 09:00 Clopidogrel Bisulfate (plaVIX) 75 mg DAILY PO Last administered on 10/07/16 09: 19; Admin Dose 75 MG; Start 09/28/16 at 09:00 Ondansetron HCl (Zofran Inj) 4 mg Q6H PRN IV NAUSEA AND/OR VOMITING Last administered on 10/04/16 22:14; Admin Dose 4 MG; Start 09/27/16 at 13:00 Acetaminophen (Tylenol Tab) 650 mg Q6H PRN PO PAIN LEVEL 1-3 OR FEVER; Start at 13:30 Acetaminophen (Tylenol Supp) 650 mg Q6H PRN [place] PAIN LEVEL 1-3 OR FEVER; Start 09/27/16 at 13:30 Acetaminophen/ Hydrocodone Bitart ([place] (5/325)) 1 tab Q6H PRN PO MODERATE PAIN LEVEL 4-6 Last administered on 09/28/16 20:43; Admin Dose 1 TAB; Start at 13:30 Acetaminophen/ Hydrocodone Bitart ([place] (5/325)) 2 tab Q6H PRN PO SEVERE PAIN LEVEL 7-10; Start 09/27/16 at 13:30 Morphine Sulfate (morphine) 2 mg Q4H PRN IV SEVERE PAIN LEVEL 7-10; Start 09/27 at 13:30 Docusate Sodium (Colace) 100 mg Q12H PRN PO CONSTIPATION Last administered on 05:41; Admin Dose 100 MG; Start 09/27/16 at 13:30 Magnesium Hydroxide (Milk Of Mag) 30 ml DAILY PRN PO CONSTIPATION; Start at 13:30 Bisacodyl (Dulcolax Supp) 10 mg DAILY PRN [place] CONSTIPATION Last administered on 09/30/16 05:41; Admin Dose 10 MG; Start 09/27/16 at 13:30 Heparin Sodium (Porcine) (Heparin (5000 Units/0.5 ml)) 5,000 unit Q12 SC Last administered on 10/07/16 09:20; Admin Dose 5,000 UNIT; Start 09/27/16 at 21:00 Nitroglycerin (Nitroglycerin (Sl Tab) 0.4 Mg) 1 tab Q5M PRN SL CHEST PAIN; Start 09/27/16 at 13:30 Miscellaneous Information 1 ea NOTE XX ; Start 09/27/16 at 14:00 Glucose (Glutose) 15 gm Q15M PRN PO DECREASED GLUCOSE; Start 09/27/16 at 14:00 Glucose (Glutose) 22.5 gm Q15M PRN PO DECREASED GLUCOSE; Start 09/27/16 at 14: 00 Dextrose (D50w Syringe) 25 ml Q15M PRN IV DECREASED GLUCOSE; Start 09/27/16 at 14:00 Dextrose (D50w Syringe) 50 ml Q15M PRN IV DECREASED GLUCOSE; Start 09/27/16 at 14:00 Glucagon (Glucagen) 1 mg Q15M PRN IM DECREASED GLUCOSE; Start 09/27/16 at 14:00 Glucose (Glutose) 15 gm Q15M PRN BUCCAL DECREASED GLUCOSE; Start 09/27/16 at 14 :00 Atropine Sulfate (Atropine (Syringe)) 0.5 mg PRN PRN IV BRADYCARDIA (HR <40); Start 09/27/16 at 15:00 Atorvastatin Calcium (Lipitor) 80 mg HS PO Last administered on 10/06/16 20:42 ; Admin Dose 80 MG; Start 09/28/16 at 21:00 Polyethylene Glycol (Miralax) 17 gm DAILY PO Last administered on 10/07/16 09: 21; Admin Dose 17 GM; Start 09/30/16 at 15:00 Morphine Sulfate 2 mg 2 mg Q2H PRN IV FOR NON CARDIAC PAIN (4-10); Start at 21:00 Cefazolin Sodium (Ancef 1 Gm/50 ml (Pmx)) 50 ml @ 100 mls/hr Q24H IVPB Last administered on 10/06/16 21:40; Admin Dose 100 MLS/HR; Start 10/01/16 at 22:00 Insulin Glargine (Lantus) 10 unit DAILY@20 SC Last administered on 10/06/16 20: 45; Admin Dose 10 UNIT; Start 10/05/16 at 20:00 Carvedilol (Coreg) 12.5 mg BID PO ; Start 10/07/16 at 21:00; Status UNV Lisinopril (Zestril) 2.5 mg DAILY PO ; Start 10/08/16 at 09:00; Status UNV Assessment/Plan Chief Complaint/Hosp Course Pt with RCA STEMI s/p PCI of RCA x 2 BUNNY ASA Plavix Problems: Additional Assessment/Plan Pt has hypotensive episode during HD and was stopped HD D?W nephro pt has stat Echo LVEF is 65% and Mild MR there is no change in wall motion D?C metoprolol and add coreg decrease lisinopril to 2.5 had MR he will need HD for pre load reduction. ordered CT chest and CT head there is no clear etiology of hypotention during HD. He doesnt have CP there is no signs of stent thrombosis. Pt cath films reviewed again. Other then RCA he has small OM stenosis which isn not responsible of any ischemic etiology of hypotention. EKG is fine on tele. ordered orthostatic hypotention vitals. if needed will add midodrine PT needed. pt is not stable to go home. HUNTER BASSETT MD Oct 07, 2016 19:41
[2016-10-07] MEDS: ATORVASTATIN 80 MG TAB PO SCH (20:55)
[2016-10-07] MEDS ORDERED: METOPROLOL 50 MG TAB PO SCH (21:00)
[2016-10-07] MEDS ORDERED: METOPROLOL 25 MG TAB PO SCH (21:00)
[2016-10-07] MEDS: INSULIN GLARGINE [LANtus] 3 ML PEN SC SCH (21:01)
[2016-10-07] MEDS: CEFAZOLIN 1 GM/50 ML (PMX) 50 ML IVPB SCH (21:15)
--- NOTE | 2016-10-07 21:42 | CONS ---
Date/Time of Note Date/Time of Note DATE: 10/07/16 TIME: 21:40 Assessment/Plan Assessment/Plan Additional Assessment/Plan 1. Acute ST-elevation myocardial infarction, status post cardiac catheterization with 2 stents placed in the right coronary artery. 2. End-stage renal disease on hemodialysis 3 times a week. 3. Hypertension. 4. Diabetes mellitus type 2. 5. Bradycardia, severe, status post atropine in ICU.,s/p pacemaker placement PLAN: Today during HD dropped to systolic 70s, HR went upto 130-140s in atrial fibrillation then converted to SR, BP now systolic 90s, pt feel better- HD stopped after 1.5 hr today will plan for next HD after my round on , discussed with cardiology to assess his EF and Control HR better before next hD attempt on pt regular schedule fo r HD is , and Thursday will conitnue to follow up on patient Consultation Date/Type/Reason Admit Date/Time September 27, 2016 at 12:23 Type of Consultation: NEPHROLOGY Referring Provider: HUNTER BASSETT MD 24 HR Interval Summary Free Text/Dictation pt BP dropped and HR went upto 130-140s, pt remained asymptomatic Exam/Review of Systems Vital Signs Vitals Vital Signs Date Time Temp Pulse Resp B/P Pulse Ox O2 Delivery O2 Flow Rate FiO2 10/07/16 20:38 3.0 10/07/16 20:35 84 10/07/16 15:20 98.0 19 100/49 98 10/07/16 08:30 Nasal Cannula Intake and Output 10/06/16 10/06/16 10/07/16 15:00 23:00 07:00 Intake Total 240 ml 650 ml 300 ml Balance 240 ml 650 ml 300 ml Results Result Diagram: 10/07/16 0715 10/07/16 0715 Results 24 hrs Laboratory Tests Test 10/07/16 03:33 10/07/16 07:15 10/07/16 08:37 10/07/16 12:14 Bedside Glucose 145 157 139 White Blood Count 7.0 Red Blood Count 3.53 L Hemoglobin 9.2 L Hematocrit 29.7 L Mean Corpuscular Volume 84.1 Mean Corpuscular Hemoglobin 26.1 L Mean Corpuscular Hemoglobin Concent 31.0 L Red Cell Distribution Width 15.4 H Platelet Count 242 # Mean Platelet Volume 10.8 H Neutrophils % 70.9 Lymphocytes % 16.3 Monocytes % 6.3 Eosinophils % 4.3 Basophils % 0.3 Nucleated Red Blood Cells % 0.0 Neutrophils # 5.0 Lymphocytes # 1.1 Monocytes # 0.4 Eosinophils # 0.3 Basophils # 0.0 Nucleated Red Blood Cells # 0.0 Sodium Level 140 Potassium Level 3.8 Chloride Level 102 Carbon Dioxide Level 26 Anion Gap 16 Blood Urea Nitrogen 65 H Creatinine 7.09 H Glucose Level 126 Calcium Level 8.4 Test 10/07/16 18:07 10/07/16 20:52 Bedside Glucose 223 H 100 Medications Medications Current Medications Aspirin (Halfprin) 81 mg DAILY PO Last administered on 10/07/16 09:21; Admin Dose 81 MG; Start 09/28/16 at 09:00 Clopidogrel Bisulfate (plaVIX) 75 mg DAILY PO Last administered on 10/07/16 09: 19; Admin Dose 75 MG; Start 09/28/16 at 09:00 Ondansetron HCl (Zofran Inj) 4 mg Q6H PRN IV NAUSEA AND/OR VOMITING Last administered on 10/04/16 22:14; Admin Dose 4 MG; Start 09/27/16 at 13:00 Acetaminophen (Tylenol Tab) 650 mg Q6H PRN PO PAIN LEVEL 1-3 OR FEVER; Start at 13:30 Acetaminophen (Tylenol Supp) 650 mg Q6H PRN [place] PAIN LEVEL 1-3 OR FEVER; Start 09/27/16 at 13:30 Acetaminophen/ Hydrocodone Bitart ([place] (5/325)) 1 tab Q6H PRN PO MODERATE PAIN LEVEL 4-6 Last administered on 09/28/16 20:43; Admin Dose 1 TAB; Start at 13:30 Acetaminophen/ Hydrocodone Bitart ([place] (5/325)) 2 tab Q6H PRN PO SEVERE PAIN LEVEL 7-10; Start 09/27/16 at 13:30 Morphine Sulfate (morphine) 2 mg Q4H PRN IV SEVERE PAIN LEVEL 7-10; Start 09/27 at 13:30 Docusate Sodium (Colace) 100 mg Q12H PRN PO CONSTIPATION Last administered on 05:41; Admin Dose 100 MG; Start 09/27/16 at 13:30 Magnesium Hydroxide (Milk Of Mag) 30 ml DAILY PRN PO CONSTIPATION; Start at 13:30 Bisacodyl (Dulcolax Supp) 10 mg DAILY PRN [place] CONSTIPATION Last administered on 09/30/16 05:41; Admin Dose 10 MG; Start 09/27/16 at 13:30 Heparin Sodium (Porcine) (Heparin (5000 Units/0.5 ml)) 5,000 unit Q12 SC Last administered on 10/07/16 21:00; Admin Dose 5,000 UNIT; Start 09/27/16 at 21:00 Nitroglycerin (Nitroglycerin (Sl Tab) 0.4 Mg) 1 tab Q5M PRN SL CHEST PAIN; Start 09/27/16 at 13:30 Miscellaneous Information 1 ea NOTE XX ; Start 09/27/16 at 14:00 Glucose (Glutose) 15 gm Q15M PRN PO DECREASED GLUCOSE; Start 09/27/16 at 14:00 Glucose (Glutose) 22.5 gm Q15M PRN PO DECREASED GLUCOSE; Start 09/27/16 at 14: 00 Dextrose (D50w Syringe) 25 ml Q15M PRN IV DECREASED GLUCOSE; Start 09/27/16 at 14:00 Dextrose (D50w Syringe) 50 ml Q15M PRN IV DECREASED GLUCOSE; Start 09/27/16 at 14:00 Glucagon (Glucagen) 1 mg Q15M PRN IM DECREASED GLUCOSE; Start 09/27/16 at 14:00 Glucose (Glutose) 15 gm Q15M PRN BUCCAL DECREASED GLUCOSE; Start 09/27/16 at 14 :00 Atropine Sulfate (Atropine (Syringe)) 0.5 mg PRN PRN IV BRADYCARDIA (HR <40); Start 09/27/16 at 15:00 Atorvastatin Calcium (Lipitor) 80 mg HS PO Last administered on 10/07/16 20:55 ; Admin Dose 80 MG; Start 09/28/16 at 21:00 Polyethylene Glycol (Miralax) 17 gm DAILY PO Last administered on 10/07/16 09: 21; Admin Dose 17 GM; Start 09/30/16 at 15:00 Morphine Sulfate 2 mg 2 mg Q2H PRN IV FOR NON CARDIAC PAIN (4-10); Start at 21:00 Cefazolin Sodium (Ancef 1 Gm/50 ml (Pmx)) 50 ml @ 100 mls/hr Q24H IVPB Last administered on 10/07/16 21:15; Admin Dose 100 MLS/HR; Start 10/01/16 at 22:00 Insulin Glargine (Lantus) 10 unit DAILY@20 SC Last administered on 10/07/16 21: 01; Admin Dose 10 UNIT; Start 10/05/16 at 20:00 Carvedilol (Coreg) 12.5 mg BID PO ; Start 10/07/16 at 21:00 Lisinopril (Zestril) 2.5 mg DAILY PO ; Start 10/08/16 at 09:00 RAYNE FITCH MD Oct 07, 2016 21:42
[2016-10-08] VITALS (13 sets, daily range): BP systolic 95–149; BP diastolic 47–84; PULSE 70–89; RESP 17–18
[2016-10-08] MEDS: INSULIN ASPART [NOVOLOG] 3 ML PEN SC SCH ×7 (08:00→20:28)
[2016-10-08] MEDS: LISINOPRIL 5 MG TAB PO SCH (08:42)
[2016-10-08] MEDS: HEPARIN 5,000 UNIT/0.5 ML VIAL SC SCH (08:43)
[2016-10-08] MEDS: CLOPIDOGREL 75 MG TAB PO SCH (08:43)
[2016-10-08] MEDS: ASPIRIN (EC) 81 MG TAB PO SCH (08:44)
[2016-10-08] MEDS: POLYETHYLENE GLYCOL 17 GM PACKET PO SCH (08:44)
--- NOTE | 2016-10-08 11:42 | RADRPT ---
PROCEDURE: CT Brain without. CLINICAL INDICATION: Weakness. TECHNIQUE: A CT of the brain was performed on multidetector high-resolution CT scanner utilizing a xial sections from the skull base through the vertex without contrast. The scan was reviewed in sof t tissue brain and high frequency resolution bone algorithm windows. Images were reviewed on a high -resolution PACS workstation. One or more the following does reduction techniques were utilized: Aut omated exposure control, adjustment of the mA/ or kV according to patient's size, or use of iterativ e reconstruction technique. The exam CTDI = 43.30 mGy and the DLP = 720.23 mGy-cm. COMPARISON: None available. FINDINGS: The ventricles and sulci are moderately prominent indicative of volume loss. There is no intracrania l hemorrhage, mass effect or midline shift. No abnormal intra-axial or extra-axial fluid collection s are seen. The boyd/white matter differentiation is preserved. There are mild scattered foci of hypoattenuation in the white matter, which are nonspecific in etiol ogy but likely reflect chronic small vessel ischemic changes. There are moderate intracranial vascu lar calcifications consistent with atherosclerosis. The visualized paranasal sinuses demonstrate foc al opacification of anterior ethmoid air cells. The mastoid air cells are essentially clear. IMPRESSION: 1. No acute intracranial hemorrhage, transcortical infarction or mass effect. 2. Moderate intracranial atherosclerosis and my chronic small vessel ischemic changes. 3. Moderate generalized cerebral volume loss. RPTAT: HH .Francheska Siegel MD, Date Time Electronically viewed and signed by .Francheska Siegel MD, MD on 10/08/2016 11:42 .N/
--- NOTE | 2016-10-08 15:11 | RADRPT ---
PROCEDURE: CT Chest without contrast (high resolution). CLINICAL INDICATION: Dyspnea TECHNIQUE: High-resolution CT of the chest was performed on a multidetector scanner. No IV contra st was given. Coronal and sagittal images were reformatted from the axial data set. The patient was examined during both deep inspiration and full expiration. One or more of the following dose reduct ion techniques were used: automated exposure control, adjustment of the mA and/or kV according to p atient size, use of iterative reconstruction technique. CTDI = 20.01 mGy. DLP = 881.21 mGy-cm. COMPARISON: None FINDINGS: Patchy bilateral perihilar pulmonary ground-glass opacity is seen, along with areas of interlobular septal thickening. There are small to mild bilateral pleural effusions, with associated bibasilar a telectasis. No pneumothorax is identified. Bilateral bronchial wall thickening is noted, suggestiv e of bronchitis. No pulmonary nodule or mass is identified. There is minimal pulmonary emphysema. No evidence of interstitial lung disease is identified. The heart size is mildly enlarged, without pericardial effusion. Coronary arterial and aortic ather osclerotic calcifications are present. Left-sided dual lead pacemaker is in place. There is no tho racic aortic aneurysm. No mediastinal, hilar, axillary or supraclavicular lymphadenopathy is identi fied. Complex bilateral renal lesions are identified measuring up to 2.9 cm on the left. Visualized porti ons of the upper abdomen are otherwise unremarkable. The surrounding osseous structures are remarka ble for degenerative spondylosis of the spine. No osteolytic or osteoblastic lesion is detected. IMPRESSION: 1. Patchy bilateral perihilar pulmonary ground-glass opacity is seen, along with areas of interlobu lar septal thickening, suggestive of pulmonary edema. There are small to mild bilateral pleural eff usions. 2. Mild cardiomegaly is noted. Coronary arterial and aortic atherosclerotic calcifications are pre sent. 3. Complex bilateral renal lesions are identified measuring up to 2.9 cm on the left, possibly hemo rrhagic cysts, however solid renal neoplasm cannot be excluded. Contrast enhanced renal mass protoc ol CT or MRI is recommended for further characterization. RPTAT: EE .Jun Pruett MD, Date Time Electronically viewed and signed by .Jun Pruett MD, on 10/08/2016 15:11 .R/
--- NOTE | 2016-10-08 16:52 | CONS ---
Date/Time of Note Date/Time of Note DATE: 10/08/16 TIME: 16:47 Assessment/Plan Assessment/Plan Additional Assessment/Plan 1. Acute ST-elevation myocardial infarction, status post cardiac catheterization with 2 stents placed in the right coronary artery. 2. End-stage renal disease on hemodialysis 3 times a week. 3. Hypertension. 4. Diabetes mellitus type 2. 5. Bradycardia, severe, status post atropine in ICU.,s/p pacemaker placement PLAN: no plan for HD today Orthostatic negative, will paln for HD tomorrow after my round pt regular schedule fo r HD is , and Thursday will conitnue to follow up on patient Consultation Date/Type/Reason Admit Date/Time September 27, 2016 at 12:23 Type of Consultation: NEPHROLOGY Referring Provider: HUNTER BASSETT MD 24 HR Interval Summary Free Text/Dictation orthostatic negative, Bp stable Exam/Review of Systems Vital Signs Vitals Vital Signs Date Time Temp Pulse Resp B/P Pulse Ox O2 Delivery O2 Flow Rate FiO2 10/08/16 16:28 75 10/08/16 15:53 98.2 17 118/55 99 10/08/16 08:30 Nasal Cannula 2.0 Intake and Output 10/07/16 10/07/16 10/08/16 15:00 23:00 07:00 Intake Total 300 ml 750 ml 240 ml Output Total 700 ml Balance -400 ml 750 ml 240 ml Exam Constitutional: alert Psych: no complaints Head: normocephalic Neck: supple Respiratory: clear to auscultation, diminished breath sounds Cardiovascular: nl pulses, regular rate and rhythm Gastrointestinal: non-tender, soft Musculoskeletal: nl extremities to inspection Extremities: normal pulses, + right pacemaker, Left AVF Neurological: 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 MEDICAL OFFICER II-XII intact Results Result Diagram: 10/07/16 0715 10/07/16 0715 Results 24 hrs Laboratory Tests Test 10/07/16 18:07 10/07/16 20:52 10/08/16 04:34 10/08/16 05:30 Bedside Glucose 223 H 100 66 L 125 Test 10/08/16 08:32 10/08/16 11:49 Bedside Glucose 140 147 Medications Medications Current Medications Aspirin (Halfprin) 81 mg DAILY PO Last administered on 10/08/16t 08:44; Admin Dose 81 MG; Start 09/28/16 at 09:00 Clopidogrel Bisulfate (plaVIX) 75 mg DAILY PO Last administered on 10/08/16 08: 43; Admin Dose 75 MG; Start 09/28/16 at 09:00 Ondansetron HCl (Zofran Inj) 4 mg Q6H PRN IV NAUSEA AND/OR VOMITING Last administered on 10/04/16 22:14; Admin Dose 4 MG; Start 09/27/16 at 13:00 Acetaminophen (Tylenol Tab) 650 mg Q6H PRN PO PAIN LEVEL 1-3 OR FEVER; Start at 13:30 Acetaminophen (Tylenol Supp) 650 mg Q6H PRN [place] PAIN LEVEL 1-3 OR FEVER; Start 09/27/16 at 13:30 Acetaminophen/ Hydrocodone Bitart ([place] (5/325)) 1 tab Q6H PRN PO MODERATE PAIN LEVEL 4-6 Last administered on 09/28/16 20:43; Admin Dose 1 TAB; Start at 13:30 Acetaminophen/ Hydrocodone Bitart ([place] (5/325)) 2 tab Q6H PRN PO SEVERE PAIN LEVEL 7-10; Start 09/27/16 at 13:30 Morphine Sulfate (morphine) 2 mg Q4H PRN IV SEVERE PAIN LEVEL 7-10; Start 09/27 at 13:30 Docusate Sodium (Colace) 100 mg Q12H PRN PO CONSTIPATION Last administered on 05:41; Admin Dose 100 MG; Start 09/27/16 at 13:30 Magnesium Hydroxide (Milk Of Mag) 30 ml DAILY PRN PO CONSTIPATION; Start at 13:30 Bisacodyl (Dulcolax Supp) 10 mg DAILY PRN [place] CONSTIPATION Last administered on 09/30/16 05:41; Admin Dose 10 MG; Start 09/27/16 at 13:30 Heparin Sodium (Porcine) (Heparin (5000 Units/0.5 ml)) 5,000 unit Q12 SC Last administered on 10/08/16 08:43; Admin Dose 5,000 UNIT; Start 09/27/16 at 21:00 Nitroglycerin (Nitroglycerin (Sl Tab) 0.4 Mg) 1 tab Q5M PRN SL CHEST PAIN; Start 09/27/16 at 13:30 Miscellaneous Information 1 ea NOTE XX ; Start 09/27/16 at 14:00 Glucose (Glutose) 15 gm Q15M PRN PO DECREASED GLUCOSE; Start 09/27/16 at 14:00 Glucose (Glutose) 22.5 gm Q15M PRN PO DECREASED GLUCOSE; Start 09/27/16 at 14: 00 Dextrose (D50w Syringe) 25 ml Q15M PRN IV DECREASED GLUCOSE; Start 09/27/16 at 14:00 Dextrose (D50w Syringe) 50 ml Q15M PRN IV DECREASED GLUCOSE; Start 09/27/16 at 14:00 Glucagon (Glucagen) 1 mg Q15M PRN IM DECREASED GLUCOSE; Start 09/27/16 at 14:00 Glucose (Glutose) 15 gm Q15M PRN BUCCAL DECREASED GLUCOSE; Start 09/27/16 at 14 :00 Atropine Sulfate (Atropine (Syringe)) 0.5 mg PRN PRN IV BRADYCARDIA (HR <40); Start 09/27/16 at 15:00 Atorvastatin Calcium (Lipitor) 80 mg HS PO Last administered on 10/07/16 20:55 ; Admin Dose 80 MG; Start 09/28/16 at 21:00 Polyethylene Glycol (Miralax) 17 gm DAILY PO Last administered on 10/08/16 08: 44; Admin Dose 17 GM; Start 09/30/16 at 15:00 Morphine Sulfate 2 mg 2 mg Q2H PRN IV FOR NON CARDIAC PAIN (4-10); Start at 21:00 Cefazolin Sodium (Ancef 1 Gm/50 ml (Pmx)) 50 ml @ 100 mls/hr Q24H IVPB Last administered on 10/07/16 21:15; Admin Dose 100 MLS/HR; Start 10/01/16 at 22:00 Insulin Glargine (Lantus) 10 unit DAILY@20 SC Last administered on 10/07/16 21: 01; Admin Dose 10 UNIT; Start 10/05/16 at 20:00 Carvedilol (Coreg) 12.5 mg BID PO Last administered on 10/08/16 08:44; Admin Dose 12.5 MG; Start 10/07/16 at 21:00 Lisinopril (Zestril) 2.5 mg DAILY PO Last administered on 10/08/16 08:42; Admin Dose 2.5 MG; Start 10/08/16 at 09:00 RAYNE FITCH MD Oct 08, 2016 16:52
--- NOTE | 2016-10-08 17:43 | PN ---
Date/Time of Note Date/Time of Note DATE: 10/08/16 TIME: 17:38 Assessment/Plan VTE Prophylaxis VTE Prophylaxis Intervention: LMWH Lines/Catheters IV Catheter Type (from [facility]): [place] Urinary Cath still in place: No Assessment/Plan Assessment/Plan 1. Acute ST-elevation myocardial infarction, status post cardiac catheterization with 2 stents placed in the right coronary artery, stable 2. Paroxysmal atrial fibrillation, on coreg 3. End-stage renal disease on hemodialysis HD per nephrology 4. Hypertension, stable 5. Diabetes mellitus type 2, on insulins 6. Bradycardia, severe, s/p pacemaker placement 7. DVT prophylaxis: heparin Subjective 24 Hr Interval Summary Free Text/Dictation weak, shortness of breath. blood pressure dropped while HD Exam/Review of Systems Vital Signs Vitals Vital Signs Date Time Temp Pulse Resp B/P Pulse Ox O2 Delivery O2 Flow Rate FiO2 10/08/16 16:28 75 10/08/16 15:53 98.2 17 118/55 99 10/08/16 08:30 Nasal Cannula 2.0 Intake and Output 10/07/16 10/07/16 10/08/16 15:00 23:00 07:00 Intake Total 300 ml 750 ml 240 ml Output Total 700 ml Balance -400 ml 750 ml 240 ml Exam Constitutional: alert, oriented, well developed Psych: nl mood/affect, no complaints Head: atraumatic, normocephalic Eyes: EOMI, PERRL, nl conjunctiva, nl lids ENMT: nl external ears & nose, nl lips & teeth, nl nasal mucosa & septum Neck: non-tender, supple Respiratory: clear to auscultation, normal air movement, No congested cough, No crackles/rales, No diminished breath sounds, No intercostal retraction, No labored breathing, No other, No respirations, No tactile fremitus, No wheezing Cardiovascular: nl pulses, regular rate and rhythm, No S3, No S4, No bruits, No diastolic murmur, No edema, No gallop, No irregular rhythm, No jugular venous distention (JVD), No murmurs/extra sounds, No other, No rub, No systolic murmur Gastrointestinal: nl liver, spleen, non-tender, soft, No ascites, No bowel sounds, No distended, No firm, No hepatomegaly, No mass , No other, No rebound or guarding, No splenomegaly, No surgical scars, No tender Musculoskeletal: nl extremities to inspection Extremities: normal pulses, No calf tenderness, No clubbing, No cyanosis, No edema, No other, No palpable cord, No pitting pedal edema, No tenderness Neurological: SHIPPING ASSISTANT II-XII intact, nl mental status, nl speech, nl strength Results Result Diagram: 10/07/16 0715 10/07/16 0715 Results 24 hrs Laboratory Tests Test 10/07/16 18:07 10/07/16 20:52 10/08/16 04:34 10/08/16 05:30 Bedside Glucose 223 H 100 66 L 125 Test 10/08/16 08:32 10/08/16 11:49 10/08/16 17:20 Bedside Glucose 140 147 160 Medications Medications Current Medications Aspirin (Halfprin) 81 mg DAILY PO Last administered on 10/08/16 08:44; Admin Dose 81 MG; Start 09/28/16 at 09:00 Clopidogrel Bisulfate (plaVIX) 75 mg DAILY PO Last administered on 10/08/16 08: 43; Admin Dose 75 MG; Start 09/28/16 at 09:00 Ondansetron HCl (Zofran Inj) 4 mg Q6H PRN IV NAUSEA AND/OR VOMITING Last administered on 10/04/16 22:14; Admin Dose 4 MG; Start 09/27/16 at 13:00 Acetaminophen (Tylenol Tab) 650 mg Q6H PRN PO PAIN LEVEL 1-3 OR FEVER; Start at 13:30 Acetaminophen (Tylenol Supp) 650 mg Q6H PRN [place] PAIN LEVEL 1-3 OR FEVER; Start 09/27/16 at 13:30 Acetaminophen/ Hydrocodone Bitart ([place] (5/325)) 1 tab Q6H PRN PO MODERATE PAIN LEVEL 4-6 Last administered on 09/28/16 20:43; Admin Dose 1 TAB; Start at 13:30 Acetaminophen/ Hydrocodone Bitart ([place] (5/325)) 2 tab Q6H PRN PO SEVERE PAIN LEVEL 7-10; Start 09/27/16 at 13:30 Morphine Sulfate (morphine) 2 mg Q4H PRN IV SEVERE PAIN LEVEL 7-10; Start 09/27 at 13:30 Docusate Sodium (Colace) 100 mg Q12H PRN PO CONSTIPATION Last administered on 05:41; Admin Dose 100 MG; Start 09/27/16 at 13:30 Magnesium Hydroxide (Milk Of Mag) 30 ml DAILY PRN PO CONSTIPATION; Start at 13:30 Bisacodyl (Dulcolax Supp) 10 mg DAILY PRN [place] CONSTIPATION Last administered on 09/30/16 05:41; Admin Dose 10 MG; Start 09/27/16 at 13:30 Heparin Sodium (Porcine) (Heparin (5000 Units/0.5 ml)) 5,000 unit Q12 SC Last administered on 10/08/16 08:43; Admin Dose 5,000 UNIT; Start 09/27/16 at 21:00 Nitroglycerin (Nitroglycerin (Sl Tab) 0.4 Mg) 1 tab Q5M PRN SL CHEST PAIN; Start 09/27/16 at 13:30 Miscellaneous Information 1 ea NOTE XX ; Start 09/27/16 at 14:00 Glucose (Glutose) 15 gm Q15M PRN PO DECREASED GLUCOSE; Start 09/27/16 at 14:00 Glucose (Glutose) 22.5 gm Q15M PRN PO DECREASED GLUCOSE; Start 09/27/16 at 14: 00 Dextrose (D50w Syringe) 25 ml Q15M PRN IV DECREASED GLUCOSE; Start 09/27/16 at 14:00 Dextrose (D50w Syringe) 50 ml Q15M PRN IV DECREASED GLUCOSE; Start 09/27/16 at 14:00 Glucagon (Glucagen) 1 mg Q15M PRN IM DECREASED GLUCOSE; Start 09/27/16 at 14:00 Glucose (Glutose) 15 gm Q15M PRN BUCCAL DECREASED GLUCOSE; Start 09/27/16 at 14 :00 Atropine Sulfate (Atropine (Syringe)) 0.5 mg PRN PRN IV BRADYCARDIA (HR <40); Start 09/27/16 at 15:00 Atorvastatin Calcium (Lipitor) 80 mg HS PO Last administered on 10/07/16 20:55 ; Admin Dose 80 MG; Start 09/28/16 at 21:00 Polyethylene Glycol (Miralax) 17 gm DAILY PO Last administered on 10/08/16 08: 44; Admin Dose 17 GM; Start 09/30/16 at 15:00 Morphine Sulfate 2 mg 2 mg Q2H PRN IV FOR NON CARDIAC PAIN (4-10); Start at 21:00 Cefazolin Sodium (Ancef 1 Gm/50 ml (Pmx)) 50 ml @ 100 mls/hr Q24H IVPB Last administered on 10/07/16 21:15; Admin Dose 100 MLS/HR; Start 10/01/16 at 22:00 Insulin Glargine (Lantus) 10 unit DAILY@20 SC Last administered on 10/07/16 21: 01; Admin Dose 10 UNIT; Start 10/05/16 at 20:00 Carvedilol (Coreg) 12.5 mg BID PO Last administered on 10/08/16 08:44; Admin Dose 12.5 MG; Start 10/07/16 at 21:00 Lisinopril (Zestril) 2.5 mg DAILY PO Last administered on 10/08/16 08:42; Admin Dose 2.5 MG; Start 10/08/16 at 09:00 LINSEY NICOLAS MD Oct 08, 2016 17:43
--- NOTE | 2016-10-08 18:14 | CONS ---
Date/Time of Note Date/Time of Note DATE: 10/08/16 TIME: 18:11 Consult Date/Type/Reason Admit Date/Time September 27, 2016 at 12:23 Initial Consult Date 06/30/2016 Type of Consultation: Card Ordering Provider: HUNTER BASSETT MD Objective Vital Signs Date Time Temp Pulse Resp B/P Pulse Ox O2 Delivery O2 Flow Rate FiO2 10/08/16 16:28 75 10/08/16 15:53 98.2 17 118/55 99 10/08/16 08:30 Nasal Cannula 2.0 Intake and Output 10/07/16 10/07/16 10/08/16 15:00 23:00 07:00 Intake Total 300 ml 750 ml 240 ml Output Total 700 ml Balance -400 ml 750 ml 240 ml Results/Medications Result Diagram: 10/07/16 0715 10/07/1615 Results 24 hrs Laboratory Tests Test 10/07/16 20:52 10/08/16 04:34 10/08/16 05:30 10/08/16 08:32 Bedside Glucose 100 66 L 125 140 Test 10/08/16 11:49 10/08/16 17:20 Bedside Glucose 147 160 Medications Current Medications Aspirin (Halfprin) 81 mg DAILY PO Last administered on 10/08/16 08:44; Admin Dose 81 MG; Start 09/28/16 at 09:00 Clopidogrel Bisulfate (plaVIX) 75 mg DAILY PO Last administered on 10/08/16 08: 43; Admin Dose 75 MG; Start 09/28/16 at 09:00 Ondansetron HCl (Zofran Inj) 4 mg Q6H PRN IV NAUSEA AND/OR VOMITING Last administered on 10/04/16 22:14; Admin Dose 4 MG; Start 09/27/16 at 13:00 Acetaminophen (Tylenol Tab) 650 mg Q6H PRN PO PAIN LEVEL 1-3 OR FEVER; Start at 13:30 Acetaminophen (Tylenol Supp) 650 mg Q6H PRN [place] PAIN LEVEL 1-3 OR FEVER; Start 09/27/16 at 13:30 Acetaminophen/ Hydrocodone Bitart ([place] (5/325)) 1 tab Q6H PRN PO MODERATE PAIN LEVEL 4-6 Last administered on 09/28/16 20:43; Admin Dose 1 TAB; Start at 13:30 Acetaminophen/ Hydrocodone Bitart ([place] (5/325)) 2 tab Q6H PRN PO SEVERE PAIN LEVEL 7-10; Start 09/27/16 at 13:30 Morphine Sulfate (morphine) 2 mg Q4H PRN IV SEVERE PAIN LEVEL 7-10; Start 09/27 at 13:30 Docusate Sodium (Colace) 100 mg Q12H PRN PO CONSTIPATION Last administered on 05:41; Admin Dose 100 MG; Start 09/27/16 at 13:30 Magnesium Hydroxide (Milk Of Mag) 30 ml DAILY PRN PO CONSTIPATION; Start at 13:30 Bisacodyl (Dulcolax Supp) 10 mg DAILY PRN [place] CONSTIPATION Last administered on 09/30/16 05:41; Admin Dose 10 MG; Start 09/27/16 at 13:30 Heparin Sodium (Porcine) (Heparin (5000 Units/0.5 ml)) 5,000 unit Q12 SC Last administered on 10/08/16 08:43; Admin Dose 5,000 UNIT; Start 09/27/16 at 21:00 Nitroglycerin (Nitroglycerin (Sl Tab) 0.4 Mg) 1 tab Q5M PRN SL CHEST PAIN; Start 09/27/16 at 13:30 Miscellaneous Information 1 ea NOTE XX ; Start 09/27/16 at 14:00 Glucose (Glutose) 15 gm Q15M PRN PO DECREASED GLUCOSE; Start 09/27/16 at 14:00 Glucose (Glutose) 22.5 gm Q15M PRN PO DECREASED GLUCOSE; Start 09/27/16 at 14: 00 Dextrose (D50w Syringe) 25 ml Q15M PRN IV DECREASED GLUCOSE; Start 09/27/16 at 14:00 Dextrose (D50w Syringe) 50 ml Q15M PRN IV DECREASED GLUCOSE; Start 09/27/16 at 14:00 Glucagon (Glucagen) 1 mg Q15M PRN IM DECREASED GLUCOSE; Start 09/27/16 at 14:00 Glucose (Glutose) 15 gm Q15M PRN BUCCAL DECREASED GLUCOSE; Start 09/27/16 at 14 :00 Atropine Sulfate (Atropine (Syringe)) 0.5 mg PRN PRN IV BRADYCARDIA (HR <40); Start 09/27/16 at 15:00 Atorvastatin Calcium (Lipitor) 80 mg HS PO Last administered on 10/07/16 20:55 ; Admin Dose 80 MG; Start 09/28/16 at 21:00 Polyethylene Glycol (Miralax) 17 gm DAILY PO Last administered on 10/08/16 08: 44; Admin Dose 17 GM; Start 09/30/16 at 15:00 Morphine Sulfate 2 mg 2 mg Q2H PRN IV FOR NON CARDIAC PAIN (4-10); Start at 21:00 Cefazolin Sodium (Ancef 1 Gm/50 ml (Pmx)) 50 ml @ 100 mls/hr Q24H IVPB Last administered on 10/07/16 21:15; Admin Dose 100 MLS/HR; Start 10/01/16 at 22:00 Insulin Glargine (Lantus) 10 unit DAILY@20 SC Last administered on 10/07/16 21: 01; Admin Dose 10 UNIT; Start 10/05/16 at 20:00 Carvedilol (Coreg) 12.5 mg BID PO Last administered on 10/08/16 08:44; Admin Dose 12.5 MG; Start 10/07/16 at 21:00 Lisinopril (Zestril) 2.5 mg DAILY PO Last administered on 10/08/16 08:42; Admin Dose 2.5 MG; Start 10/08/16 at 09:00 Assessment/Plan Chief Complaint/Hosp Course Pt with RCA STEMI s/p PCI of RCA x 2 BUNNY ASA Plavix Problems: Additional Assessment/Plan PT is not orthostatic BP changes CT head IMPRESSION: 1. No acute intracranial hemorrhage, transcortical infarction or mass effect. 2. Moderate intracranial atherosclerosis and my chronic small vessel ischemic changes. 3. Moderate generalized cerebral volume loss. CT chest: 1. Patchy bilateral perihilar pulmonary ground-glass opacity is seen, along with areas of interlobular septal thickening, suggestive of pulmonary edema. There are small to mild bilateral pleural effusions. 2. Mild cardiomegaly is noted. Coronary arterial and aortic atherosclerotic calcifications are present. 3. Complex bilateral renal lesions are identified measuring up to 2.9 cm on the left, possibly hemorrhagic cysts, however solid renal neoplasm cannot be excluded. Contrast enhanced renal mass protocol CT or MRI is recommended for further characterization. Pt HR is controlled on BB but has afib episodes agian and again will need eliques 2.5mg BID for Afib will stop ASA and only ASA and plavix HD tomorrow and will need fluid remvoal as he has pulm edema. HUNTER BASSETT MD Oct 08, 2016 18:14
[2016-10-08] MEDS: APIXABAN 5 MG TABLET PO SCH (20:26)
[2016-10-08] MEDS: ATORVASTATIN 80 MG TAB PO SCH (20:26)
[2016-10-08] MEDS: INSULIN GLARGINE [LANtus] 3 ML PEN SC SCH (20:31)
[2016-10-09] VITALS (21 sets, daily range): BP systolic 105–162; BP diastolic 53–74; PULSE 70–90; RESP 17–20
[2016-10-09] MEDS: CEFAZOLIN 1 GM/50 ML (PMX) 50 ML IVPB SCH ×2 (00:39→22:08)
[2016-10-09 07:40] LABS: ADD SCAN DIFF NO
[2016-10-09 07:43] LABS: BASOPHILS % 0.3 % (0.0-2.0); EOSINOPHILS # 0.2 10^3/ul (0.0-0.5); EOSINOPHILS % 3.3 % (0.0-7.0); HEMATOCRIT 26.8 % (42.0-52.0); HEMOGLOBIN 8.1 g/dl (14.0-18.0); LYMPHOCYTES # 1.4 10^3/ul (0.8-2.9); LYMPHOCYTES % 21.4 % (15.0-51.0); MEAN CORPUSCULAR HEMOGLOBIN 25.9 pg (29.0-33.0); MEAN CORPUSCULAR HGB CONC 30.2 g/dl (32.0-37.0); MEAN CORPUSCULAR VOLUME 85.6 fl (82.0-101.0); MONOCYTE # 0.7 10^3/ul (0.3-0.9); MONOCYTES % 10.4 % (0.0-11.0); NEUTROPHILS % 63.3 % (39.0-77.0); PLATELET COUNT 242 10^3/UL (140-415); RED BLOOD COUNT 3.13 10^6/ul (4.70-6.10); RED CELL DISTRIBUTION WIDTH 15.3 % (11.5-14.5); WHITE BLOOD COUNT 6.4 10^3/ul (4.8-10.8)
[2016-10-09] MEDS: INSULIN ASPART [NOVOLOG] 3 ML PEN SC SCH ×7 (08:00→21:00)
[2016-10-09 08:06] LABS: CALCIUM 8.8 mg/dl (8.4-10.2); CREATININE 8.78 mg/dl (0.61-1.24); POTASSIUM 4.9 mmol/L (3.5-5.1)
[2016-10-09] MEDS: APIXABAN 5 MG TABLET PO SCH ×2 (08:36→22:06)
[2016-10-09] MEDS: CLOPIDOGREL 75 MG TAB PO SCH (08:36)
[2016-10-09] MEDS: POLYETHYLENE GLYCOL 17 GM PACKET PO SCH (08:36)
[2016-10-09] MEDS: LISINOPRIL 5 MG TAB PO SCH (08:37)
--- NOTE | 2016-10-09 10:37 | CONS ---
Date/Time of Note Date/Time of Note DATE: 10/09/16 TIME: 10:35 Assessment/Plan Assessment/Plan Additional Assessment/Plan 1. Acute ST-elevation myocardial infarction, status post cardiac catheterization with 2 stents placed in the right coronary artery. 2. End-stage renal disease on hemodialysis 3 times a week. 3. Hypertension. 4. Diabetes mellitus type 2. 5. Bradycardia, severe, status post atropine in ICU.,s/p pacemaker placement PLAN: Plan for HD today with midodrine support( 1hr UF,2 hr HD) no BP meds today AM- Dialysis nurse advised to start with Low Blood flow ECHO showed EF 65% with stage I DD- Orthostatic negative, pt regular schedule fo r HD is , and Thursday will conitnue to follow up on patient Consultation Date/Type/Reason Admit Date/Time September 27, 2016 at 12:23 Type of Consultation: NEPHROLOGY Referring Provider: HUNTER BASSETT MD 24 HR Interval Summary Free Text/Dictation CT chest showed pulmonary edema Exam/Review of Systems Vital Signs Vitals Vital Signs Date Time Temp Pulse Resp B/P Pulse Ox O2 Delivery O2 Flow Rate FiO2 10/09/16 08:55 90 10/09/16 07:47 98.2 18 122/53 94 10/09/16 00:25 3.0 10/08/16 20:00 Nasal Cannula Intake and Output 10/08/16 10/08/16 10/09/16 15:00 23:00 07:00 Intake Total 1000 ml 350 ml Balance 1000 ml 350 ml Exam Constitutional: alert Psych: no complaints Head: normocephalic Neck: supple Respiratory: clear to auscultation, diminished breath sounds Cardiovascular: nl pulses, regular rate and rhythm Gastrointestinal: non-tender, soft Musculoskeletal: nl extremities to inspection Extremities: normal pulses, + right pacemaker, Left AVF 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 Results Result Diagram: 10/09/16 0645 10/09/16 0645 Results 24 hrs Laboratory Tests Test 10/08/16 11:49 10/08/16 17:20 10/08/16 20:24 10/09/16 04:24 Bedside Glucose 147 160 166 145 Test 10/09/16 06:45 10/09/16 07:48 White Blood Count 6.4 Red Blood Count 3.13 L Hemoglobin 8.1 L Hematocrit 26.8 L Mean Corpuscular Volume 85.6 Mean Corpuscular Hemoglobin 25.9 L Mean Corpuscular Hemoglobin Concent 30.2 L Red Cell Distribution Width 15.3 H Platelet Count 242 Mean Platelet Volume 11.0 H Neutrophils % 63.3 Lymphocytes % 21.4 Monocytes % 10.4 Eosinophils % 3.3 Basophils % 0.3 Nucleated Red Blood Cells % 0.0 Neutrophils # 4.0 Lymphocytes # 1.4 Monocytes # 0.7 Eosinophils # 0.2 Basophils # 0.0 Nucleated Red Blood Cells # 0.0 Sodium Level 141 Potassium Level 4.9 Chloride Level 102 Carbon Dioxide Level 25 Anion Gap 19 H Blood Urea Nitrogen 77 H Creatinine 8.78 H Glucose Level 111 Calcium Level 8.8 Bedside Glucose 136 Medications Medications Current Medications Clopidogrel Bisulfate (plaVIX) 75 mg DAILY PO Last administered on 10/09/16 08: 36; Admin Dose 75 MG; Start 09/28/16 at 09:00 Ondansetron HCl (Zofran Inj) 4 mg Q6H PRN IV NAUSEA AND/OR VOMITING Last administered on 10/04/16 22:14; Admin Dose 4 MG; Start 09/27/16 at 13:00 Acetaminophen (Tylenol Tab) 650 mg Q6H PRN PO PAIN LEVEL 1-3 OR FEVER; Start at 13:30 Acetaminophen (Tylenol Supp) 650 mg Q6H PRN [place] PAIN LEVEL 1-3 OR FEVER; Start 09/27/16 at 13:30 Acetaminophen/ Hydrocodone Bitart ([place] (5/325)) 1 tab Q6H PRN PO MODERATE PAIN LEVEL 4-6 Last administered on 09/28/16 20:43; Admin Dose 1 TAB; Start at 13:30 Acetaminophen/ Hydrocodone Bitart ([place] (5/325)) 2 tab Q6H PRN PO SEVERE PAIN LEVEL 7-10; Start 09/27/16 at 13:30 Morphine Sulfate (morphine) 2 mg Q4H PRN IV SEVERE PAIN LEVEL 7-10; Start 09/27 at 13:30 Docusate Sodium (Colace) 100 mg Q12H PRN PO CONSTIPATION Last administered on 05:41; Admin Dose 100 MG; Start 09/27/16 at 13:30 Magnesium Hydroxide (Milk Of Mag) 30 ml DAILY PRN PO CONSTIPATION; Start at 13:30 Bisacodyl (Dulcolax Supp) 10 mg DAILY PRN [place] CONSTIPATION Last administered on 09/30/16 05:41; Admin Dose 10 MG; Start 09/27/16 at 13:30 Nitroglycerin (Nitroglycerin (Sl Tab) 0.4 Mg) 1 tab Q5M PRN SL CHEST PAIN; Start 09/27/16 at 13:30 Miscellaneous Information 1 ea NOTE XX ; Start 09/27/16 at 14:00 Glucose (Glutose) 15 gm Q15M PRN PO DECREASED GLUCOSE; Start 09/27/16 at 14:00 Glucose (Glutose) 22.5 gm Q15M PRN PO DECREASED GLUCOSE; Start 09/27/16 at 14: 00 Dextrose (D50w Syringe) 25 ml Q15M PRN IV DECREASED GLUCOSE; Start 09/27/16 at 14:00 Dextrose (D50w Syringe) 50 ml Q15M PRN IV DECREASED GLUCOSE; Start 09/27/16 at 14:00 Glucagon (Glucagen) 1 mg Q15M PRN IM DECREASED GLUCOSE; Start 09/27/16 at 14:00 Glucose (Glutose) 15 gm Q15M PRN BUCCAL DECREASED GLUCOSE; Start 09/27/16 at 14 :00 Atropine Sulfate (Atropine (Syringe)) 0.5 mg PRN PRN IV BRADYCARDIA (HR <40); Start 09/27/16 at 15:00 Atorvastatin Calcium (Lipitor) 80 mg HS PO Last administered on 10/08/16 20:26 ; Admin Dose 80 MG; Start 09/28/16 at 21:00 Polyethylene Glycol (Miralax) 17 gm DAILY PO Last administered on 10/09/16 08: 36; Admin Dose 17 GM; Start 09/30/16 at 15:00 Morphine Sulfate 2 mg 2 mg Q2H PRN IV FOR NON CARDIAC PAIN (4-10); Start at 21:00 Cefazolin Sodium (Ancef 1 Gm/50 ml (Pmx)) 50 ml @ 100 mls/hr Q24H IVPB Last administered on 10/09/16 00:39; Admin Dose 100 MLS/HR; Start 10/01/16 at 22:00 Insulin Glargine (Lantus) 10 unit DAILY@20 SC Last administered on 10/08/16 20: 31; Admin Dose 10 UNIT; Start 10/05/16 at 20:00 Carvedilol (Coreg) 12.5 mg BID PO Last administered on 10/08/16 20:30; Admin Dose 12.5 MG; Start 10/07/16 at 21:00 Lisinopril (Zestril) 2.5 mg DAILY PO Last administered on 10/08/16 08:42; Admin Dose 2.5 MG; Start 10/08/16 at 09:00 Apixaban (Eliquis) 2.5 mg BID PO Last administered on 10/09/16 08:36; Admin Dose 2.5 MG; Start 10/08/16 at 21:00 Midodrine (Proamatine) 5 mg ONCE ONCE PO ; Start 10/09/16 at 10:30; Stop at 10:31; Status UNV RAYNE FITCH MD Oct 09, 2016 10:37
[2016-10-09] MEDS ORDERED: MIDODRINE 5 MG TAB PO SCH (12:00)
--- NOTE | 2016-10-09 16:03 | PN ---
Date/Time of Note Date/Time of Note DATE: 10/09/16 TIME: 15:58 Assessment/Plan VTE Prophylaxis VTE Prophylaxis Intervention: other Lines/Catheters IV Catheter Type (from [place]): Peripheral IV Urinary Cath still in place: No Assessment/Plan Assessment/Plan 1. Acute ST-elevation myocardial infarction, status post cardiac catheterization with 2 stents placed in the right coronary artery, stable 2. Paroxysmal atrial fibrillation, on coreg 12.5 mg bid with eliquis 3. End-stage renal disease on hemodialysis HD per nephrology 4. Hypertension, stable 5. Diabetes mellitus type 2, on insulins 6. Bradycardia, severe, s/p pacemaker placement 7. Bilateral renal lesions, urology consult Subjective 24 Hr Interval Summary Free Text/Dictation no erspiratory distress. afebrile Exam/Review of Systems Vital Signs Vitals Vital Signs Date Time Temp Pulse Resp B/P Pulse Ox O2 Delivery O2 Flow Rate FiO2 10/09/16 14:30 76 16 10/09/16 11:45 98.1 128/60 98 10/09/16 00:25 3.0 10/08/16 20:00 Nasal Cannula Intake and Output 10/08/16 10/08/16 10/09/16 15:00 23:00 07:00 Intake Total 1000 ml 350 ml Balance 1000 ml 350 ml Exam Constitutional: alert, oriented, well developed Psych: nl mood/affect, no complaints Head: atraumatic, normocephalic Eyes: EOMI, PERRL, nl conjunctiva, nl lids, nl sclera ENMT: nl external ears & nose, nl lips & teeth, nl nasal mucosa & septum Neck: non-tender, supple Respiratory: clear to auscultation, normal air movement, No congested cough, No crackles/rales, No diminished breath sounds, No intercostal retraction, No labored breathing, No other, No respirations, No tactile fremitus, No wheezing Cardiovascular: nl pulses, regular rate and rhythm, No S3, No S4, No bruits, No diastolic murmur, No edema, No gallop, No irregular rhythm, No jugular venous distention (JVD), No murmurs/extra sounds, No other, No rub, No systolic murmur Gastrointestinal: nl liver, spleen, non-tender, soft, No ascites, No bowel sounds, No distended, No firm, No hepatomegaly, No mass , No other, No rebound or guarding, No splenomegaly, No surgical scars, No tender Musculoskeletal: nl extremities to inspection Extremities: normal pulses, No calf tenderness, No clubbing, No cyanosis, No edema, No other, No palpable cord, No pitting pedal edema, No tenderness 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, nl mental status, nl speech, nl strength Skin: nl turgor Lymph: nl lymph nodes Results Result Diagram: 10/09/1645 10/09/16 0645 Results 24 hrs Laboratory Tests Test 10/08/16 17:20 10/08/16 20:24 10/09/16 04:24 10/09/16 06:45 Bedside Glucose 160 166 145 White Blood Count 6.4 Red Blood Count 3.13 L Hemoglobin 8.1 L Hematocrit 26.8 L Mean Corpuscular Volume 85.6 Mean Corpuscular Hemoglobin 25.9 L Mean Corpuscular Hemoglobin Concent 30.2 L Red Cell Distribution Width 15.3 H Platelet Count 242 Mean Platelet Volume 11.0 H Neutrophils % 63.3 Lymphocytes % 21.4 Monocytes % 10.4 Eosinophils % 3.3 Basophils % 0.3 Nucleated Red Blood Cells % 0.0 Neutrophils # 4.0 Lymphocytes # 1.4 Monocytes # 0.7 Eosinophils # 0.2 Basophils # 0.0 Nucleated Red Blood Cells # 0.0 Sodium Level 141 Potassium Level 4.9 Chloride Level 102 Carbon Dioxide Level 25 Anion Gap 19 H Blood Urea Nitrogen 77 H Creatinine 8.78 H Glucose Level 111 Calcium Level 8.8 Test 10/09/16 07:48 10/09/16 11:45 Bedside Glucose 136 161 Medications Medications Current Medications Clopidogrel Bisulfate (plaVIX) 75 mg DAILY PO Last administered on 10/09/16 08: 36; Admin Dose 75 MG; Start 09/28/16 at 09:00 Ondansetron HCl (Zofran Inj) 4 mg Q6H PRN IV NAUSEA AND/OR VOMITING Last administered on 10/04/16 22:14; Admin Dose 4 MG; Start 09/27/16 at 13:00 Acetaminophen (Tylenol Tab) 650 mg Q6H PRN PO PAIN LEVEL 1-3 OR FEVER; Start at 13:30 Acetaminophen (Tylenol Supp) 650 mg Q6H PRN [place] PAIN LEVEL 1-3 OR FEVER; Start 09/27/16 at 13:30 Acetaminophen/ Hydrocodone Bitart ([place] (5/325)) 1 tab Q6H PRN PO MODERATE PAIN LEVEL 4-6 Last administered on 09/28/16 20:43; Admin Dose 1 TAB; Start at 13:30 Acetaminophen/ Hydrocodone Bitart ([place] (5/325)) 2 tab Q6H PRN PO SEVERE PAIN LEVEL 7-10; Start 09/27/16 at 13:30 Morphine Sulfate (morphine) 2 mg Q4H PRN IV SEVERE PAIN LEVEL 7-10; Start 09/27 at 13:30 Docusate Sodium (Colace) 100 mg Q12H PRN PO CONSTIPATION Last administered on 05:41; Admin Dose 100 MG; Start 09/27/16 at 13:30 Magnesium Hydroxide (Milk Of Mag) 30 ml DAILY PRN PO CONSTIPATION; Start at 13:30 Bisacodyl (Dulcolax Supp) 10 mg DAILY PRN [place] CONSTIPATION Last administered on 09/30/16 05:41; Admin Dose 10 MG; Start 09/27/16 at 13:30 Nitroglycerin (Nitroglycerin (Sl Tab) 0.4 Mg) 1 tab Q5M PRN SL CHEST PAIN; Start 09/27/16 at 13:30 Miscellaneous Information 1 ea NOTE XX ; Start 09/27/16 at 14:00 Glucose (Glutose) 15 gm Q15M PRN PO DECREASED GLUCOSE; Start 09/27/16 at 14:00 Glucose (Glutose) 22.5 gm Q15M PRN PO DECREASED GLUCOSE; Start 09/27/16 at 14: 00 Dextrose (D50w Syringe) 25 ml Q15M PRN IV DECREASED GLUCOSE; Start 09/27/16 at 14:00 Dextrose (D50w Syringe) 50 ml Q15M PRN IV DECREASED GLUCOSE; Start 09/27/16 at 14:00 Glucagon (Glucagen) 1 mg Q15M PRN IM DECREASED GLUCOSE; Start 09/27/16 at 14:00 Glucose (Glutose) 15 gm Q15M PRN BUCCAL DECREASED GLUCOSE; Start 09/27/16 at 14 :00 Atropine Sulfate (Atropine (Syringe)) 0.5 mg PRN PRN IV BRADYCARDIA (HR <40); Start 09/27/16 at 15:00 Atorvastatin Calcium (Lipitor) 80 mg HS PO Last administered on 10/08/16 20:26 ; Admin Dose 80 MG; Start 09/28/16 at 21:00 Polyethylene Glycol (Miralax) 17 gm DAILY PO Last administered on 10/09/16 08: 36; Admin Dose 17 GM; Start 09/30/16 at 15:00 Morphine Sulfate 2 mg 2 mg Q2H PRN IV FOR NON CARDIAC PAIN (4-10); Start at 21:00 Cefazolin Sodium (Ancef 1 Gm/50 ml (Pmx)) 50 ml @ 100 mls/hr Q24H IVPB Last administered on 10/09/16 00:39; Admin Dose 100 MLS/HR; Start 10/01/16 at 22:00 Insulin Glargine (Lantus) 10 unit DAILY@20 SC Last administered on 10/08/16 20: 31; Admin Dose 10 UNIT; Start 10/05/16 at 20:00 Carvedilol (Coreg) 12.5 mg BID PO Last administered on 10/08/16 20:30; Admin Dose 12.5 MG; Start 10/07/16 at 21:00 Lisinopril (Zestril) 2.5 mg DAILY PO Last administered on 10/08/16 08:42; Admin Dose 2.5 MG; Start 10/08/16 at 09:00 Apixaban (Eliquis) 2.5 mg BID PO Last administered on 10/09/16 08:36; Admin Dose 2.5 MG; Start 10/08/16 at 21:00 Midodrine (Proamatine) 5 mg ONCE PO Last administered on 10/09/16 11:42; Admin Dose 5 MG; Start 10/09/16 at 12:00; Stop 10/09/16 at 23:00 LINSEY NICOLAS MD Oct 09, 2016 16:03
--- NOTE | 2016-10-09 20:09 | CONS ---
DATE OF ADMISSION: 09/27/2016 DATE OF CONSULTATION: 10/09/2016 REQUESTING PHYSICIAN: Dr. Gao. PCP: The patient is a patient of Dr. Yordy Stapleton. HISTORY OF PRESENT ILLNESS: This is a 70-year-old male who initially presented to the hospital on 0 09/27/2016 complaining of chest pain and vomiting and was found to have a myocardial infarction, and he has been worked up for that. The patient is known to have a history of chronic kidney disease on hemodialysis for the past 3 years and he did have a CT of the chest today and that showed the kidne ys, the part that was included on the CT scan of both kidneys appeared to have renal cysts, but they have also what appears to be probably hemorrhagic renal cysts, but a neoplasm could not be excluded . Therefore, a urological consultation was requested. The patient states that he still makes some urine may be a quarter of cup a day and the urine is clear. There is no history of hematuria and as mentioned, he has been on hemodialysis 3 times a week for the past 2 years. The patient's other [employer] [facility] medical history includes a history of hypertension, history of diabetes mellitus and paroxysmal a trial fibrillation on Coreg and the patient has bradycardia. He is status post pacemaker placement. PAST SURGICAL HISTORY: He did have left lower extremity varicose vein removal and also a pacemaker placement, renal dialysis access of the left upper extremity and also now on the chest. ALLERGIES: PATIENT HAS NO KNOWN DRUG ALLERGIES. MEDICATIONS: He is on at the present include: 1. Midodrine. 2. Eliquis. 3. Lisinopril. 4. Carvedilol. 5. Insulin. 6. Cefazolin. 7. MiraLax. 8. Lipitor 80 mg at bedtime daily. 9. Plavix 75 mg. 10. Atropine sulfate p.r.n. 11. Heber. 12. Tylenol p.r.n. 13. Colace 100 mg q.12h. p.r.n. 14. Milk of magnesia p.r.n. 15. Dulcolax p.r.n. 16. Nitroglycerin p.r.n. 17. Zofran p.r.n. PHYSICAL EXAMINATION: GENERAL: Reveals an elderly male who weighs about 85 kg and he is 67 inches tall. VITAL SIGNS: Temperature is 98.2. Pulse 72, respiration 18, blood pressure 162/74. CHEST: Does have access for dialysis in his upper right of the chest and also left upper extremity. ABDOMEN: Somewhat obese, but there is no tenderness, no mass palpable. GENITALIA: External genitalia are normal. EXTREMITIES: Lower extremities are normal. There is no edema. LABORATORY DATA: His latest CBC shows a white count of 6.4, hemoglobin 8.1, hematocrit 26.8, platel et count 242,000. BUN is 77, creatinine 8.78, sodium 141, potassium 4.9, chloride 102, CO2 25. 1. CT scan of the chest was reported as patchy bilateral perihilar pulmonary ground glass opacity i s seen along with areas of anterior lobular septal thickening suggestive of pulmonary edema. 2. There are small to mild bilateral pleural effusions. There is mild cardiomegaly as noted, villalba ry arterial and aortic arteriosclerotic calcifications are present. 3. Complex bilateral renal lesions are identified measuring up to 2.9 cm on the left, possibly hemo rrhagic cysts; however, so renal neoplasm cannot be excluded. Contrast enhanced renal mass protocol CT or MRI is recommended for further characterization. The patient did have here a prior admission and that was back in February of 2010. At that time, he did have renal ultrasound and that renal ultrasound at that time was reported as no hydronephrosis, but the patient does have a 1.9 cm cyst in the mid pole of the left kidney and also at that time he did have another cyst on the right side 1.4 cm. So these probably are the same cysts that he has no w and they may have some hemorrhage in them. IMPRESSION: Bilateral renal cysts with possible hemorrhage and side of them; however one cannot rule out any solid renal tumor. RECOMMENDATION: At the present, I will order a renal ultrasound and see if that will clarify that f urther. If that is not enough to clarify the issue, we could always do a CT scan with IV contrast w hich should not be a problem because he is already on hemodialysis and his kidneys are failing alrea dy and since he has had a recent myocardial infarction, then he is not a candidate for any surgery a t the present, and what we will do is repeat the ultrasound in about 4 to 6 months and see if there is any change in his renal cysts. Dictated By: ARNIE HAINES/SEAN Conf#: [id number] DID#: [id number]
[2016-10-09] MEDS: ATORVASTATIN 80 MG TAB PO SCH (22:06)
[2016-10-09] MEDS: INSULIN GLARGINE [LANtus] 3 ML PEN SC SCH (22:08)
[2016-10-10] VITALS (11 sets, daily range): BP systolic 97–133; BP diastolic 49–55; PULSE 70–81; RESP 16–20
--- NOTE | 2016-10-10 07:54 | RADRPT ---
PROCEDURE: Retroperitoneal US. CLINICAL INDICATION: renal lesions on CT ? hemorrhagic cysts/prior US 2009 TECHNIQUE: Multiple sonographic images of the retroperitoneum were obtained. The images were revi ewed on a PACS workstation. COMPARISON: CTA chest from 10/08/2016 FINDINGS: The right kidney measures 10.5 x 4.4 x 3.5 cm. The left kidney measures 9.4 x 5.2 x 3.2 cm. Renal cortical thickness measures up to 9 mm on the right and 8 mm on the left. The renal parenchymal echotexture is markedly increased bilaterally. There is no hydronephrosis. There is a 2.8 cm heterogeneous lesion without vascular flow in the midpole of the left kidney which was partially visualized on the last image of the CT chest study from 10/08/2016. Posterior acoust ic enhancement is identified suggesting a cystic lesion. 1.8 cm simple cyst in the upper pole of the left kidney. There are simple cysts in the right kidney measuring up to 2.3 cm. The bladder is grossly unremarkable. IMPRESSION: 2.8 cm complex cystic lesion in the left kidney may be a hemorrhagic/proteinaceous cyst although a c ystic renal cell carcinoma cannot be entirely excluded. An MRI of the abdomen with attention to the kidneys without and with intravenous contrast is recommended for further evaluation. Simple bilateral renal cysts are identified measuring up to 2.3 cm on the right and 1.8 cm on the le ft. Atrophic and echogenic kidneys consistent with medical renal disease. The bladder is grossly unremarkable. RPTAT: EE Physician Kamilla Date Time Electronically viewed and signed by Physician Kamilla on 10/10/2016 07:53 /
[2016-10-10] MEDS: POLYETHYLENE GLYCOL 17 GM PACKET PO SCH (08:35)
[2016-10-10] MEDS: INSULIN ASPART [NOVOLOG] 3 ML PEN SC SCH ×7 (08:44→21:00)
[2016-10-10] MEDS: CLOPIDOGREL 75 MG TAB PO SCH (08:45)
[2016-10-10] MEDS: LISINOPRIL 5 MG TAB PO SCH (08:45)
[2016-10-10] MEDS: APIXABAN 5 MG TABLET PO SCH ×2 (08:45→21:00)
--- NOTE | 2016-10-10 09:12 | PN ---
DATE: 10/10/2016 SUBJECTIVE: The patient is comfortable and has no complaints himself. He did have a renal cyst nancy t was not clearly a cyst, it may have some bleeding in it, and as demonstrated on the CT of the ches t, was reported complex bilateral renal lesions ____ possibly hemorrhagic cysts. Therefore, because of that, we did a renal ultrasound. OBJECTIVE: VITAL SIGNS: His temperature is 98.3, pulse 83, respirations ____. ABDOMEN: Soft ____ mass palpable and there is no tenderness. IMAGING: The renal ultrasound again reported as a 2.8 cm complex cystic lesion in the left kidney, may be a hemorrhagic/____ cyst, although a cystic renal ____ cell carcinoma could not be entirely ex cluded. They suggested to do an MRI, but the patient does have a pacemaker. Also reported that sim ple bilateral renal cysts are identified measuring up to 2.3 cm on the right and 1.8 cm on the left, and the kidneys are atrophic and echogenic, consistent with chronic medical renal disease. The pat ient, in fact, is on hemodialysis. IMPRESSION: Bilateral renal cysts that are benign and simple; however, there is a 2.[address] on the left side that would be have ____ or protein in it, and this needs to be further evaluated . Since the patient just had a recent myocardial infarction, even if ____ need any intervention, he will not be operated on at this time, and I think it is a benign cyst, but to make sure that it is benign, what I recommend to do is he will follow up with me in the office in about 4 months, and the n we will repeat the ultrasound and see if there are any changes and then decide if any further dominique tment is warranted. I gave the patient my card and my phone number so he could call and make an shalini ointment for a followup. Dictated By: ARNIE HAINES/SEAN Conf#: [id number] DID#: [id number]
--- NOTE | 2016-10-10 15:31 | PN ---
Date/Time of Note Date/Time of Note DATE: 10/10/16 TIME: 15:28 Assessment/Plan VTE Prophylaxis VTE Prophylaxis Intervention: other Lines/Catheters IV Catheter Type (from Nrs): Peripheral IV Urinary Cath still in place: No Assessment/Plan Assessment/Plan 1. Acute ST-elevation myocardial infarction, status post cardiac catheterization with 2 stents placed in the right coronary artery, stable 2. Paroxysmal atrial fibrillation, on coreg 12.5 mg bid with eliquis 3. End-stage renal disease on hemodialysis HD per nephrology 4. Hypertension, stable 5. Diabetes mellitus type 2, on insulins 6. Bradycardia, severe, s/p pacemaker placement 7. Bilateral renal lesions, follow up with Dr. Yadav in 4 months 8. Continue physical therapy, plan to D/C to SNF on 10/11/2016. talked with patient and family today Subjective 24 Hr Interval Summary Free Text/Dictation weak and MATA but no chest pain Exam/Review of Systems Vital Signs Vitals Vital Signs Date Time Temp Pulse Resp B/P Pulse Ox O2 Delivery O2 Flow Rate FiO2 10/10/16 12:23 72 10/10/16 11:56 98.4 20 106/54 92 10/09/16 21:02 3.0 10/09/16 20:00 Nasal Cannula Intake and Output 10/09/16 10/09/16 10/10/16 15:00 23:00 07:00 Intake Total 300 ml 600 ml Output Total 1800 ml Balance -1500 ml 600 ml Exam Constitutional: alert, oriented, well developed Psych: nl mood/affect, no complaints Head: atraumatic, normocephalic Eyes: EOMI, PERRL, nl conjunctiva, nl lids ENMT: nl external ears & nose, nl lips & teeth, nl nasal mucosa & septum Neck: non-tender, supple Respiratory: clear to auscultation, normal air movement, No congested cough, No crackles/rales, No diminished breath sounds, No intercostal retraction, No labored breathing, No other, No respirations, No tactile fremitus, No wheezing Cardiovascular: nl pulses, regular rate and rhythm, No S3, No S4, No bruits, No diastolic murmur, No edema, No gallop, No irregular rhythm, No jugular venous distention (JVD), No murmurs/extra sounds, No other, No rub, No systolic murmur Gastrointestinal: nl liver, spleen, non-tender, soft, No ascites, No bowel sounds, No distended, No firm, No hepatomegaly, No mass , No other, No rebound or guarding, No splenomegaly, No surgical scars, No tender Musculoskeletal: nl extremities to inspection Extremities: normal pulses, No calf tenderness, No clubbing, No cyanosis, No edema, No other, No palpable cord, No pitting pedal edema, No tenderness 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, nl mental status, nl speech, nl strength Skin: nl turgor Lymph: nl lymph nodes Results Result Diagram: 10/09/16 0645 10/09/16 0645 Results 24 hrs Laboratory Tests Test 10/09/16 17:03 10/09/16 21:09 10/10/16 07:50 10/10/16 12:18 Bedside Glucose 197 163 161 134 Medications Medications Current Medications Clopidogrel Bisulfate (plaVIX) 75 mg DAILY PO Last administered on 10/10/16 08: 45; Admin Dose 75 MG; Start 09/28/16 at 09:00 Ondansetron HCl (Zofran Inj) 4 mg Q6H PRN IV NAUSEA AND/OR VOMITING Last administered on 10/04/16 22:14; Admin Dose 4 MG; Start 09/27/16 at 13:00 Acetaminophen (Tylenol Tab) 650 mg Q6H PRN PO PAIN LEVEL 1-3 OR FEVER; Start at 13:30 Acetaminophen (Tylenol Supp) 650 mg Q6H PRN [place] PAIN LEVEL 1-3 OR FEVER; Start 09/27/16 at 13:30 Acetaminophen/ Hydrocodone Bitart ([place] (5/325)) 1 tab Q6H PRN PO MODERATE PAIN LEVEL 4-6 Last administered on 09/28/16 20:43; Admin Dose 1 TAB; Start at 13:30 Acetaminophen/ Hydrocodone Bitart ([place] (5/325)) 2 tab Q6H PRN PO SEVERE PAIN LEVEL 7-10; Start 09/27/16 at 13:30 Morphine Sulfate (morphine) 2 mg Q4H PRN IV SEVERE PAIN LEVEL 7-10; Start 09/27 at 13:30 Docusate Sodium (Colace) 100 mg Q12H PRN PO CONSTIPATION Last administered on 05:41; Admin Dose 100 MG; Start 09/27/16 at 13:30 Magnesium Hydroxide (Milk Of Mag) 30 ml DAILY PRN PO CONSTIPATION; Start at 13:30 Bisacodyl (Dulcolax Supp) 10 mg DAILY PRN [place] CONSTIPATION Last administered on 09/30/16 05:41; Admin Dose 10 MG; Start 09/27/16 at 13:30 Nitroglycerin (Nitroglycerin (Sl Tab) 0.4 Mg) 1 tab Q5M PRN SL CHEST PAIN; Start 09/27/16 at 13:30 Miscellaneous Information 1 ea NOTE XX ; Start 09/27/16 at 14:00 Glucose (Glutose) 15 gm Q15M PRN PO DECREASED GLUCOSE; Start 09/27/16 at 14:00 Glucose (Glutose) 22.5 gm Q15M PRN PO DECREASED GLUCOSE; Start 09/27/16 at 14: 00 Dextrose (D50w Syringe) 25 ml Q15M PRN IV DECREASED GLUCOSE; Start 09/27/16 at 14:00 Dextrose (D50w Syringe) 50 ml Q15M PRN IV DECREASED GLUCOSE; Start 09/27/16 at 14:00 Glucagon (Glucagen) 1 mg Q15M PRN IM DECREASED GLUCOSE; Start 09/27/16 at 14:00 Glucose (Glutose) 15 gm Q15M PRN BUCCAL DECREASED GLUCOSE; Start 09/27/16 at 14 :00 Atropine Sulfate (Atropine (Syringe)) 0.5 mg PRN PRN IV BRADYCARDIA (HR <40); Start 09/27/16 at 15:00 Atorvastatin Calcium (Lipitor) 80 mg HS PO Last administered on 10/09/16 22:06 ; Admin Dose 80 MG; Start 09/28/16 at 21:00 Polyethylene Glycol (Miralax) 17 gm DAILY PO Last administered on 10/09/16 08: 36; Admin Dose 17 GM; Start 09/30/16 at 15:00 Morphine Sulfate 2 mg 2 mg Q2H PRN IV FOR NON CARDIAC PAIN (4-10); Start at 21:00 Cefazolin Sodium (Ancef 1 Gm/50 ml (Pmx)) 50 ml @ 100 mls/hr Q24H IVPB Last administered on 10/09/16 22:08; Admin Dose 100 MLS/HR; Start 10/01/16 at 22:00 Insulin Glargine (Lantus) 10 unit DAILY@20 SC Last administered on 10/09/16 22: 08; Admin Dose 10 UNIT; Start 10/05/16 at 20:00 Carvedilol (Coreg) 12.5 mg BID PO Last administered on 10/10/16 08:45; Admin Dose 12.5 MG; Start 10/07/16 at 21:00 Lisinopril (Zestril) 2.5 mg DAILY PO Last administered on 10/10/16 08:45; Admin Dose 2.5 MG; Start 10/08/16 at 09:00 Apixaban (Eliquis) 2.5 mg BID PO Last administered on 10/10/16 08:45; Admin Dose 2.5 MG; Start 10/08/16 at 21:00 LINSEY NICOLAS MD Oct 10, 2016 15:31
--- NOTE | 2016-10-10 18:27 | CONS ---
Date/Time of Note Date/Time of Note DATE: 10/10/16 TIME: 18:26 Consult Date/Type/Reason Admit Date/Time September 27, 2016 at 12:23 Initial Consult Date 06/30/2016 Type of Consultation: Card Ordering Provider: HUNTER BASSETT MD Objective Vital Signs Date Time Temp Pulse Resp B/P Pulse Ox O2 Delivery O2 Flow Rate FiO2 10/10/16 16:31 81 10/10/16 15:49 98.5 20 120/53 94 10/09/16 21:02 3.0 10/09/16 20:00 Nasal Cannula Intake and Output 10/09/16 10/09/16 10/10/16 15:00 23:00 07:00 Intake Total 300 ml 600 ml Output Total 1800 ml Balance -1500 ml 600 ml Results/Medications Result Diagram: 10/09/16 0645 10/09/16 0645 Results 24 hrs Laboratory Tests Test 10/09/16 21:09 10/10/16 07:50 10/10/16 12:18 10/10/16 17:05 Bedside Glucose 163 161 134 172 Medications Current Medications Clopidogrel Bisulfate (plaVIX) 75 mg DAILY PO Last administered on 10/10/16 08: 45; Admin Dose 75 MG; Start 09/28/16 at 09:00 Ondansetron HCl (Zofran Inj) 4 mg Q6H PRN IV NAUSEA AND/OR VOMITING Last administered on 10/04/16 22:14; Admin Dose 4 MG; Start 09/27/16 at 13:00 Acetaminophen (Tylenol Tab) 650 mg Q6H PRN PO PAIN LEVEL 1-3 OR FEVER; Start at 13:30 Acetaminophen (Tylenol Supp) 650 mg Q6H PRN [place] PAIN LEVEL 1-3 OR FEVER; Start 09/27/16 at 13:30 Acetaminophen/ Hydrocodone Bitart ([place] (5/325)) 1 tab Q6H PRN PO MODERATE PAIN LEVEL 4-6 Last administered on 09/28/16 20:43; Admin Dose 1 TAB; Start at 13:30 Acetaminophen/ Hydrocodone Bitart ([place] (5/325)) 2 tab Q6H PRN PO SEVERE PAIN LEVEL 7-10; Start 09/27/16 at 13:30 Morphine Sulfate (morphine) 2 mg Q4H PRN IV SEVERE PAIN LEVEL 7-10; Start 09/27 at 13:30 Docusate Sodium (Colace) 100 mg Q12H PRN PO CONSTIPATION Last administered on 05:41; Admin Dose 100 MG; Start 09/27/16 at 13:30 Magnesium Hydroxide (Milk Of Mag) 30 ml DAILY PRN PO CONSTIPATION; Start at 13:30 Bisacodyl (Dulcolax Supp) 10 mg DAILY PRN [place] CONSTIPATION Last administered on 09/30/16 05:41; Admin Dose 10 MG; Start 09/27/16 at 13:30 Nitroglycerin (Nitroglycerin (Sl Tab) 0.4 Mg) 1 tab Q5M PRN SL CHEST PAIN; Start 09/27/16 at 13:30 Miscellaneous Information 1 ea NOTE XX ; Start 09/27/16 at 14:00 Glucose (Glutose) 15 gm Q15M PRN PO DECREASED GLUCOSE; Start 09/27/16 at 14:00 Glucose (Glutose) 22.5 gm Q15M PRN PO DECREASED GLUCOSE; Start 09/27/16 at 14: 00 Dextrose (D50w Syringe) 25 ml Q15M PRN IV DECREASED GLUCOSE; Start 09/27/16 at 14:00 Dextrose (D50w Syringe) 50 ml Q15M PRN IV DECREASED GLUCOSE; Start 09/27/16 at 14:00 Glucagon (Glucagen) 1 mg Q15M PRN IM DECREASED GLUCOSE; Start 09/27/16 at 14:00 Glucose (Glutose) 15 gm Q15M PRN BUCCAL DECREASED GLUCOSE; Start 09/27/16 at 14 :00 Atropine Sulfate (Atropine (Syringe)) 0.5 mg PRN PRN IV BRADYCARDIA (HR <40); Start 09/27/16 at 15:00 Atorvastatin Calcium (Lipitor) 80 mg HS PO Last administered on 10/09/16 22:06 ; Admin Dose 80 MG; Start 09/28/16 at 21:00 Polyethylene Glycol (Miralax) 17 gm DAILY PO Last administered on 10/09/16 08: 36; Admin Dose 17 GM; Start 09/30/16 at 15:00 Morphine Sulfate 2 mg 2 mg Q2H PRN IV FOR NON CARDIAC PAIN (4-10); Start at 21:00 Cefazolin Sodium (Ancef 1 Gm/50 ml (Pmx)) 50 ml @ 100 mls/hr Q24H IVPB Last administered on 10/09/16 22:08; Admin Dose 100 MLS/HR; Start 10/01/16 at 22:00 Insulin Glargine (Lantus) 10 unit DAILY@20 SC Last administered on 10/09/16 22: 08; Admin Dose 10 UNIT; Start 10/05/16 at 20:00 Carvedilol (Coreg) 12.5 mg BID PO Last administered on 10/10/16 08:45; Admin Dose 12.5 MG; Start 10/07/16 at 21:00 Lisinopril (Zestril) 2.5 mg DAILY PO Last administered on 10/10/16 08:45; Admin Dose 2.5 MG; Start 10/08/16 at 09:00 Apixaban (Eliquis) 2.5 mg BID PO Last administered on 10/10/16 08:45; Admin Dose 2.5 MG; Start 10/08/16 at 21:00 Assessment/Plan Chief Complaint/Hosp Course Pt with RCA STEMI s/p PCI of RCA x 2 BUNNY ASA Plavix Problems: Additional Assessment/Plan Doing better on eliques and plavix PT plan for d/c SNF f/u in office 1 weeks post d/c HUNTER BASSETT MD Oct 10, 2016 18:27
--- NOTE | 2016-10-10 18:39 | CONS ---
Date/Time of Note Date/Time of Note DATE: 10/10/16 TIME: 18:38 Assessment/Plan Assessment/Plan Additional Assessment/Plan 1. Acute ST-elevation myocardial infarction, status post cardiac catheterization with 2 stents placed in the right coronary artery. 2. End-stage renal disease on hemodialysis 3 times a week. 3. Hypertension. 4. Diabetes mellitus type 2. 5. Bradycardia, severe, status post atropine in ICU.,s/p pacemaker placement PLAN: Plan for HD tomorrow with midodrine support( 1hr UF,2 hr HD) no BP meds today AM -Dialysis nurse advised to start with Low Blood flow ECHO showed EF 65% with stage I DD- Orthostatic negative, pt regular schedule fo r HD is , and Thursday will conitnue to follow up on patient Consultation Date/Type/Reason Admit Date/Time September 27, 2016 at 12:23 Type of Consultation: NEPHROLOGY Referring Provider: HUNTER BASSETT MD 24 HR Interval Summary Free Text/Dictation no events, plan for HD tomorrow with Midodrine support Exam/Review of Systems Vital Signs Vitals Vital Signs Date Time Temp Pulse Resp B/P Pulse Ox O2 Delivery O2 Flow Rate FiO2 10/10/16 16:31 81 10/10/16 15:49 98.5 20 120/53 94 10/09/16 21:02 3.0 10/09/16 20:00 Nasal Cannula Intake and Output 10/09/16 10/09/16 10/10/16 15:00 23:00 07:00 Intake Total 300 ml 600 ml Output Total 1800 ml Balance -1500 ml 600 ml Results Result Diagram: 10/09/16 0645 10/09/16 0645 Results 24 hrs Laboratory Tests Test 10/09/16 21:09 10/10/16 07:50 10/10/16 12:18 10/10/16 17:05 Bedside Glucose 163 161 134 172 Medications Medications Current Medications Clopidogrel Bisulfate (plaVIX) 75 mg DAILY PO Last administered on 10/10/16 08: 45; Admin Dose 75 MG; Start 09/28/16 at 09:00 Ondansetron HCl (Zofran Inj) 4 mg Q6H PRN IV NAUSEA AND/OR VOMITING Last administered on 10/04/16 22:14; Admin Dose 4 MG; Start 09/27/16 at 13:00 Acetaminophen (Tylenol Tab) 650 mg Q6H PRN PO PAIN LEVEL 1-3 OR FEVER; Start at 13:30 Acetaminophen (Tylenol Supp) 650 mg Q6H PRN [place] PAIN LEVEL 1-3 OR FEVER; Start 09/27/16 at 13:30 Acetaminophen/ Hydrocodone Bitart ([place] (5/325)) 1 tab Q6H PRN PO MODERATE PAIN LEVEL 4-6 Last administered on 09/28/16 20:43; Admin Dose 1 TAB; Start at 13:30 Acetaminophen/ Hydrocodone Bitart ([place] (5/325)) 2 tab Q6H PRN PO SEVERE PAIN LEVEL 7-10; Start 09/27/16 at 13:30 Morphine Sulfate (morphine) 2 mg Q4H PRN IV SEVERE PAIN LEVEL 7-10; Start 09/27 at 13:30 Docusate Sodium (Colace) 100 mg Q12H PRN PO CONSTIPATION Last administered on 05:41; Admin Dose 100 MG; Start 09/27/16 at 13:30 Magnesium Hydroxide (Milk Of Mag) 30 ml DAILY PRN PO CONSTIPATION; Start at 13:30 Bisacodyl (Dulcolax Supp) 10 mg DAILY PRN [place] CONSTIPATION Last administered on 09/30/16 05:41; Admin Dose 10 MG; Start 09/27/16 at 13:30 Nitroglycerin (Nitroglycerin (Sl Tab) 0.4 Mg) 1 tab Q5M PRN SL CHEST PAIN; Start 09/27/16 at 13:30 Miscellaneous Information 1 ea NOTE XX ; Start 09/27/16 at 14:00 Glucose (Glutose) 15 gm Q15M PRN PO DECREASED GLUCOSE; Start 09/27/16 at 14:00 Glucose (Glutose) 22.5 gm Q15M PRN PO DECREASED GLUCOSE; Start 09/27/16 at 14: 00 Dextrose (D50w Syringe) 25 ml Q15M PRN IV DECREASED GLUCOSE; Start 09/27/16 at 14:00 Dextrose (D50w Syringe) 50 ml Q15M PRN IV DECREASED GLUCOSE; Start 09/27/16 at 14:00 Glucagon (Glucagen) 1 mg Q15M PRN IM DECREASED GLUCOSE; Start 09/27/16 at 14:00 Glucose (Glutose) 15 gm Q15M PRN BUCCAL DECREASED GLUCOSE; Start 09/27/16 at 14 :00 Atropine Sulfate (Atropine (Syringe)) 0.5 mg PRN PRN IV BRADYCARDIA (HR <40); Start 09/27/16 at 15:00 Atorvastatin Calcium (Lipitor) 80 mg HS PO Last administered on 10/09/16 22:06 ; Admin Dose 80 MG; Start 09/28/16 at 21:00 Polyethylene Glycol (Miralax) 17 gm DAILY PO Last administered on 10/09/16 08: 36; Admin Dose 17 GM; Start 09/30/16 at 15:00 Morphine Sulfate 2 mg 2 mg Q2H PRN IV FOR NON CARDIAC PAIN (4-10); Start at 21:00 Cefazolin Sodium (Ancef 1 Gm/50 ml (Pmx)) 50 ml @ 100 mls/hr Q24H IVPB Last administered on 10/09/16 22:08; Admin Dose 100 MLS/HR; Start 10/01/16 at 22:00 Insulin Glargine (Lantus) 10 unit DAILY@20 SC Last administered on 10/09/16 22: 08; Admin Dose 10 UNIT; Start 10/05/16 at 20:00 Carvedilol (Coreg) 12.5 mg BID PO Last administered on 10/10/16 08:45; Admin Dose 12.5 MG; Start 10/07/16 at 21:00 Lisinopril (Zestril) 2.5 mg DAILY PO Last administered on 10/10/16 08:45; Admin Dose 2.5 MG; Start 10/08/16 at 09:00 Apixaban (Eliquis) 2.5 mg BID PO Last administered on 10/10/16 08:45; Admin Dose 2.5 MG; Start 10/08/16 at 21:00 RAYNE FITCH MD Oct 10, 2016 18:39
[2016-10-10] MEDS: ATORVASTATIN 80 MG TAB PO SCH (21:00)
[2016-10-10] MEDS: INSULIN GLARGINE [LANtus] 3 ML PEN SC SCH (21:38)
[2016-10-10] MEDS: CEFAZOLIN 1 GM/50 ML (PMX) 50 ML IVPB SCH (21:39)
[2016-10-11] VITALS (20 sets, daily range): BP systolic 102–143; BP diastolic 49–77; PULSE 68–82; RESP 19–20
[2016-10-11] MEDS: ONDANSETRON 4 MG INJ IV PRN (02:29)
[2016-10-11] MEDS: INSULIN ASPART [NOVOLOG] 3 ML PEN SC SCH ×7 (07:58→21:00)
[2016-10-11] MEDS: CLOPIDOGREL 75 MG TAB PO SCH (08:27)
[2016-10-11] MEDS: APIXABAN 5 MG TABLET PO SCH ×2 (08:27→20:30)
[2016-10-11] MEDS: POLYETHYLENE GLYCOL 17 GM PACKET PO SCH (08:27)
[2016-10-11 08:31] LABS: ADD SCAN DIFF NO
[2016-10-11 08:34] LABS: BASOPHILS % 0.5 % (0.0-2.0); EOSINOPHILS # 0.2 10^3/ul (0.0-0.5); EOSINOPHILS % 2.7 % (0.0-7.0); HEMATOCRIT 29.8 % (42.0-52.0); HEMOGLOBIN 9.1 g/dl (14.0-18.0); LYMPHOCYTES # 1.6 10^3/ul (0.8-2.9); LYMPHOCYTES % 23.5 % (15.0-51.0); MEAN CORPUSCULAR HEMOGLOBIN 26.1 pg (29.0-33.0); MEAN CORPUSCULAR HGB CONC 30.5 g/dl (32.0-37.0); MEAN CORPUSCULAR VOLUME 85.4 fl (82.0-101.0); MEAN PLATELET VOLUME 10.7 fl (7.4-10.4); MONOCYTE # 0.7 10^3/ul (0.3-0.9); MONOCYTES % 9.8 % (0.0-11.0); NEUTROPHIL # 4.2 10^3/ul (1.6-7.5); NEUTROPHILS % 62.7 % (39.0-77.0); PLATELET COUNT 280 10^3/UL (140-415); RED BLOOD COUNT 3.49 10^6/ul (4.70-6.10); RED CELL DISTRIBUTION WIDTH 15.2 % (11.5-14.5); WHITE BLOOD COUNT 6.6 10^3/ul (4.8-10.8)
[2016-10-11] MEDS: LISINOPRIL 5 MG TAB PO SCH (09:00)
[2016-10-11 09:03] LABS: CALCIUM 8.8 mg/dl (8.4-10.2); CREATININE 9.02 mg/dl (0.61-1.24); POTASSIUM 5.6 mmol/L (3.5-5.1)
--- NOTE | 2016-10-11 11:06 | CONS ---
Date/Time of Note Date/Time of Note DATE: 10/11/16 TIME: 11:05 Consult Date/Type/Reason Admit Date/Time September 27, 2016 at 12:23 Initial Consult Date 06/30/2016 Type of Consultation: Cardiology Ordering Provider: HUNTER BASSETT MD Objective Vital Signs Date Time Temp Pulse Resp B/P Pulse Ox O2 Delivery O2 Flow Rate FiO2 10/11/16 08:18 72 10/11/16 07:42 98.3 20 107/51 95 10/11/16 01:06 3.0 10/10/16 20:00 Nasal Cannula Intake and Output 10/10/16 10/10/16 10/11/16 15:00 23:00 07:00 Intake Total 720 ml 50 ml Balance 720 ml 50 ml Results/Medications Result Diagram: 10/11/16 0808 10/11/16 0808 Results 24 hrs Laboratory Tests Test 10/10/16 12:18 10/10/16 17:05 10/10/16 21:17 10/11/16 07:54 Bedside Glucose 134 172 182 108 Test 10/11/16 08:08 White Blood Count 6.6 Red Blood Count 3.49 L Hemoglobin 9.1 L Hematocrit 29.8 L Mean Corpuscular Volume 85.4 Mean Corpuscular Hemoglobin 26.1 L Mean Corpuscular Hemoglobin Concent 30.5 L Red Cell Distribution Width 15.2 H Platelet Count 280 Mean Platelet Volume 10.7 H Neutrophils % 62.7 Lymphocytes % 23.5 Monocytes % 9.8 Eosinophils % 2.7 Basophils % 0.5 Nucleated Red Blood Cells % 0.0 Neutrophils # 4.2 Lymphocytes # 1.6 Monocytes # 0.7 Eosinophils # 0.2 Basophils # 0.0 Nucleated Red Blood Cells # 0.0 Sodium Level 139 Potassium Level 5.6 H Chloride Level 94 L Carbon Dioxide Level 33 H Anion Gap 18 H Blood Urea Nitrogen 77 H Creatinine 9.02 H Glucose Level 109 Calcium Level 8.8 Medications Current Medications Clopidogrel Bisulfate (plaVIX) 75 mg DAILY PO Last administered on 10/11/16 08 :27; Admin Dose 75 MG; Start 09/28/16 at 09:00 Ondansetron HCl (Zofran Inj) 4 mg Q6H PRN IV NAUSEA AND/OR VOMITING Last administered on 10/11/16 02:29; Admin Dose 4 MG; Start 09/27/16 at 13:00 Acetaminophen (Tylenol Tab) 650 mg Q6H PRN PO PAIN LEVEL 1-3 OR FEVER; Start at 13:30 Acetaminophen (Tylenol Supp) 650 mg Q6H PRN [place] PAIN LEVEL 1-3 OR FEVER; Start 09/27/16 at 13:30 Acetaminophen/ Hydrocodone Bitart ([place] (5/325)) 1 tab Q6H PRN PO MODERATE PAIN LEVEL 4-6 Last administered on 09/28/16 20:43; Admin Dose 1 TAB; Start at 13:30 Acetaminophen/ Hydrocodone Bitart ([place] (5/325)) 2 tab Q6H PRN PO SEVERE PAIN LEVEL 7-10; Start 09/27/16 at 13:30 Morphine Sulfate (morphine) 2 mg Q4H PRN IV SEVERE PAIN LEVEL 7-10; Start 09/27 at 13:30 Docusate Sodium (Colace) 100 mg Q12H PRN PO CONSTIPATION Last administered on 05:41; Admin Dose 100 MG; Start 09/27/16 at 13:30 Magnesium Hydroxide (Milk Of Mag) 30 ml DAILY PRN PO CONSTIPATION; Start at 13:30 Bisacodyl (Dulcolax Supp) 10 mg DAILY PRN [place] CONSTIPATION Last administered on 09/30/16 05:41; Admin Dose 10 MG; Start 09/27/16 at 13:30 Nitroglycerin (Nitroglycerin (Sl Tab) 0.4 Mg) 1 tab Q5M PRN SL CHEST PAIN; Start 09/27/16 at 13:30 Miscellaneous Information 1 ea NOTE XX ; Start 09/27/16 at 14:00 Glucose (Glutose) 15 gm Q15M PRN PO DECREASED GLUCOSE; Start 09/27/16 at 14:00 Glucose (Glutose) 22.5 gm Q15M PRN PO DECREASED GLUCOSE; Start 09/27/16 at 14: 00 Dextrose (D50w Syringe) 25 ml Q15M PRN IV DECREASED GLUCOSE; Start 09/27/16 at 14:00 Dextrose (D50w Syringe) 50 ml Q15M PRN IV DECREASED GLUCOSE; Start 09/27/16 at 14:00 Glucagon (Glucagen) 1 mg Q15M PRN IM DECREASED GLUCOSE; Start 09/27/16 at 14:00 Glucose (Glutose) 15 gm Q15M PRN BUCCAL DECREASED GLUCOSE; Start 09/27/16 at 14 :00 Atropine Sulfate (Atropine (Syringe)) 0.5 mg PRN PRN IV BRADYCARDIA (HR <40); Start 09/27/16 at 15:00 Atorvastatin Calcium (Lipitor) 80 mg HS PO Last administered on 10/09/16 22:06 ; Admin Dose 80 MG; Start 09/28/16 at 21:00 Polyethylene Glycol (Miralax) 17 gm DAILY PO Last administered on 10/11/16 08: 27; Admin Dose 17 GM; Start 09/30/16 at 15:00 Morphine Sulfate 2 mg 2 mg Q2H PRN IV FOR NON CARDIAC PAIN (4-10); Start at 21:00 Cefazolin Sodium (Ancef 1 Gm/50 ml (Pmx)) 50 ml @ 100 mls/hr Q24H IVPB Last administered on 10/10/16 21:39; Admin Dose 100 MLS/HR; Start 10/01/16 at 22:00 Insulin Glargine (Lantus) 10 unit DAILY@20 SC Last administered on 10/10/16 21: 38; Admin Dose 10 UNIT; Start 10/05/16 at 20:00 Carvedilol (Coreg) 12.5 mg BID PO Last administered on 10/10/16 08:45; Admin Dose 12.5 MG; Start 10/07/16 at 21:00 Lisinopril (Zestril) 2.5 mg DAILY PO Last administered on 10/10/16 08:45; Admin Dose 2.5 MG; Start 10/08/16 at 09:00 Apixaban (Eliquis) 2.5 mg BID PO Last administered on 10/11/16 08:27; Admin Dose 2.5 MG; Start 10/08/16 at 21:00 Assessment/Plan Chief Complaint/Hosp Course Pt with RCA STEMI s/p PCI of RCA x 2 BUNNY ASA Plavix Problems: Additional Assessment/Plan Pt stable Plavix for Stent Eliques for Afib/flutter statin bb ppm st sayra plan to d/c SNF f/u 1 week in office plz give pt phone number [phone] as well as make sure NH know that. Need PPM check in one week and post OK HUNTER Thompson MD Oct 11, 2016 11:06
[2016-10-11] MEDS ORDERED: MIDODRINE 5 MG TAB PO ONE (12:30)
--- NOTE | 2016-10-11 12:39 | PN ---
Date/Time of Note Date/Time of Note DATE: 10/11/16 TIME: 12:37 Assessment/Plan VTE Prophylaxis VTE Prophylaxis Intervention: heparin Lines/Catheters [facility] IV Urinary Cath still in place: No Assessment/Plan Problems: (1) Status post angioplasty with stent Status: Acute Comment: Is status post cardiac intervention. He is now doing well and stable from the standpoint. He is ready to go to [facility] for rehabilitative care (2) End stage renal disease on dialysis Status: Acute Comment: He is receiving dialysis today and will be proceeding from that standpoint Subjective 24 Hr Interval Summary Free Text/Dictation Pleasant gentleman in good mood sitting up in bed. He reports no new complaints Constitutional: no complaints Respiratory: no complaints Cardiovascular: no complaints Gastrointestinal: no complaints Genitourinary: no complaints Exam/Review of Systems Vital Signs Vitals Vital Signs Date Time Temp Pulse Resp B/P Pulse Ox O2 Delivery O2 Flow Rate FiO2 10/11/16 12:17 68 10/11/16 11:33 98.6 20 105/54 94 10/11/16 01:06 3.0 10/10/16 20:00 Nasal Cannula Intake and Output 10/10/16 10/10/16 10/11/16 15:00 23:00 07:00 Intake Total 720 ml 50 ml Balance 720 ml 50 ml Exam Constitutional: alert, oriented Respiratory: clear to auscultation, normal air movement Cardiovascular: nl pulses, regular rate and rhythm Results Result Diagram: 10/11/16 0808 10/11/16 0808 Results 24 hrs Laboratory Tests Test 10/10/16 17:05 10/10/16 21:17 10/11/16 07:54 10/11/16 08:08 Bedside Glucose 172 182 108 White Blood Count 6.6 Red Blood Count 3.49 L Hemoglobin 9.1 L Hematocrit 29.8 L Mean Corpuscular Volume 85.4 Mean Corpuscular Hemoglobin 26.1 L Mean Corpuscular Hemoglobin Concent 30.5 L Red Cell Distribution Width 15.2 H Platelet Count 280 Mean Platelet Volume 10.7 H Neutrophils % 62.7 Lymphocytes % 23.5 Monocytes % 9.8 Eosinophils % 2.7 Basophils % 0.5 Nucleated Red Blood Cells % 0.0 Neutrophils # 4.2 Lymphocytes # 1.6 Monocytes # 0.7 Eosinophils # 0.2 Basophils # 0.0 Nucleated Red Blood Cells # 0.0 Sodium Level 139 Potassium Level 5.6 H Chloride Level 94 L Carbon Dioxide Level 33 H Anion Gap 18 H Blood Urea Nitrogen 77 H Creatinine 9.02 H Glucose Level 109 Calcium Level 8.8 Test 10/11/16 12:08 Bedside Glucose 154 Medications Medications Current Medications Clopidogrel Bisulfate (plaVIX) 75 mg DAILY PO Last administered on 10/11/16 08 :27; Admin Dose 75 MG; Start 09/28/16 at 09:00 Ondansetron HCl (Zofran Inj) 4 mg Q6H PRN IV NAUSEA AND/OR VOMITING Last administered on 10/11/16 02:29; Admin Dose 4 MG; Start 09/27/16 at 13:00 Acetaminophen (Tylenol Tab) 650 mg Q6H PRN PO PAIN LEVEL 1-3 OR FEVER; Start at 13:30 Acetaminophen (Tylenol Supp) 650 mg Q6H PRN [place] PAIN LEVEL 1-3 OR FEVER; Start 09/27/16 at 13:30 Acetaminophen/ Hydrocodone Bitart ([place] (5/325)) 1 tab Q6H PRN PO MODERATE PAIN LEVEL 4-6 Last administered on 09/28/16 20:43; Admin Dose 1 TAB; Start at 13:30 Acetaminophen/ Hydrocodone Bitart ([place] (5/325)) 2 tab Q6H PRN PO SEVERE PAIN LEVEL 7-10; Start 09/27/16 at 13:30 Morphine Sulfate (morphine) 2 mg Q4H PRN IV SEVERE PAIN LEVEL 7-10; Start 09/27 at 13:30 Docusate Sodium (Colace) 100 mg Q12H PRN PO CONSTIPATION Last administered on 05:41; Admin Dose 100 MG; Start 09/27/16 at 13:30 Magnesium Hydroxide (Milk Of Mag) 30 ml DAILY PRN PO CONSTIPATION; Start at 13:30 Bisacodyl (Dulcolax Supp) 10 mg DAILY PRN [place] CONSTIPATION Last administered on 09/30/16 05:41; Admin Dose 10 MG; Start 09/27/16 at 13:30 Nitroglycerin (Nitroglycerin (Sl Tab) 0.4 Mg) 1 tab Q5M PRN SL CHEST PAIN; Start 09/27/16 at 13:30 Miscellaneous Information 1 ea NOTE XX ; Start 09/27/16 at 14:00 Glucose (Glutose) 15 gm Q15M PRN PO DECREASED GLUCOSE; Start 09/27/16 at 14:00 Glucose (Glutose) 22.5 gm Q15M PRN PO DECREASED GLUCOSE; Start 09/27/16 at 14: 00 Dextrose (D50w Syringe) 25 ml Q15M PRN IV DECREASED GLUCOSE; Start 09/27/16 at 14:00 Dextrose (D50w Syringe) 50 ml Q15M PRN IV DECREASED GLUCOSE; Start 09/27/16 at 14:00 Glucagon (Glucagen) 1 mg Q15M PRN IM DECREASED GLUCOSE; Start 09/27/16 at 14:00 Glucose (Glutose) 15 gm Q15M PRN BUCCAL DECREASED GLUCOSE; Start 09/27/16 at 14 :00 Atropine Sulfate (Atropine (Syringe)) 0.5 mg PRN PRN IV BRADYCARDIA (HR <40); Start 09/27/16 at 15:00 Atorvastatin Calcium (Lipitor) 80 mg HS PO Last administered on 10/09/16 22:06 ; Admin Dose 80 MG; Start 09/28/16 at 21:00 Polyethylene Glycol (Miralax) 17 gm DAILY PO Last administered on 10/11/16 08: 27; Admin Dose 17 GM; Start 09/30/16 at 15:00 Morphine Sulfate 2 mg 2 mg Q2H PRN IV FOR NON CARDIAC PAIN (4-10); Start at 21:00 Cefazolin Sodium (Ancef 1 Gm/50 ml (Pmx)) 50 ml @ 100 mls/hr Q24H IVPB Last administered on 10/10/16 21:39; Admin Dose 100 MLS/HR; Start 10/01/16 at 22:00 Insulin Glargine (Lantus) 10 unit DAILY@20 SC Last administered on 10/10/16 21: 38; Admin Dose 10 UNIT; Start 10/05/16 at 20:00 Carvedilol (Coreg) 12.5 mg BID PO Last administered on 10/10/16 08:45; Admin Dose 12.5 MG; Start 10/07/16 at 21:00 Lisinopril (Zestril) 2.5 mg DAILY PO Last administered on 10/10/16 08:45; Admin Dose 2.5 MG; Start 10/08/16 at 09:00 Apixaban (Eliquis) 2.5 mg BID PO Last administered on 10/11/16 08:27; Admin Dose 2.5 MG; Start 10/08/16 at 21:00 COCO GU MD Oct 11, 2016 12:39
[2016-10-11] MEDS: ATORVASTATIN 80 MG TAB PO SCH (20:29)
[2016-10-11] MEDS: INSULIN GLARGINE [LANtus] 3 ML PEN SC SCH (20:35)
[2016-10-11] MEDS: CEFAZOLIN 1 GM/50 ML (PMX) 50 ML IVPB SCH (22:26)
[2016-10-11] MEDS ORDERED: ZOLPIDEM 5 MG TAB PO PRN (22:30)
[2016-10-12] VITALS (12 sets, daily range): BP systolic 98–140; BP diastolic 49–76; PULSE 67–81; RESP 20–21
[2016-10-12 07:24] LABS: ADD SCAN DIFF NO
[2016-10-12 07:32] LABS: BASOPHILS % 0.6 % (0.0-2.0); EOSINOPHILS # 0.2 10^3/ul (0.0-0.5); EOSINOPHILS % 2.7 % (0.0-7.0); HEMATOCRIT 27.9 % (42.0-52.0); HEMOGLOBIN 8.5 g/dl (14.0-18.0); LYMPHOCYTES # 1.2 10^3/ul (0.8-2.9); LYMPHOCYTES % 17.2 % (15.0-51.0); MEAN CORPUSCULAR HEMOGLOBIN 26.2 pg (29.0-33.0); MEAN CORPUSCULAR HGB CONC 30.5 g/dl (32.0-37.0); MEAN CORPUSCULAR VOLUME 85.8 fl (82.0-101.0); MEAN PLATELET VOLUME 10.8 fl (7.4-10.4); MONOCYTE # 0.6 10^3/ul (0.3-0.9); MONOCYTES % 8.7 % (0.0-11.0); NEUTROPHIL # 4.9 10^3/ul (1.6-7.5); NEUTROPHILS % 70.1 % (39.0-77.0); PLATELET COUNT 253 10^3/UL (140-415); RED BLOOD COUNT 3.25 10^6/ul (4.70-6.10); RED CELL DISTRIBUTION WIDTH 15.2 % (11.5-14.5); WHITE BLOOD COUNT 6.9 10^3/ul (4.8-10.8)
[2016-10-12 07:56] LABS: CALCIUM 8.5 mg/dl (8.4-10.2); CREATININE 6.91 mg/dl (0.61-1.24); POTASSIUM 4.9 mmol/L (3.5-5.1)
[2016-10-12] MEDS: APIXABAN 5 MG TABLET PO SCH ×2 (08:27→20:26)
[2016-10-12] MEDS: LISINOPRIL 5 MG TAB PO SCH ×2 (08:27→20:26)
[2016-10-12] MEDS: POLYETHYLENE GLYCOL 17 GM PACKET PO SCH (08:27)
[2016-10-12] MEDS: CLOPIDOGREL 75 MG TAB PO SCH (08:27)
[2016-10-12] MEDS: INSULIN ASPART [NOVOLOG] 3 ML PEN SC SCH ×7 (08:28→20:18)
--- NOTE | 2016-10-12 10:53 | PN ---
Date/Time of Note Date/Time of Note DATE: 10/12/16 TIME: 10:51 Assessment/Plan VTE Prophylaxis VTE Prophylaxis Intervention: heparin Lines/Catheters IV Catheter Type (from [facility]): Saline Lock Urinary Cath still in place: No Assessment/Plan Problems: (1) Status cardiac pacemaker Status: Acute Comment: Placed for complete heart block at this admission. Operational without complications. (2) Status post angioplasty with stent Status: Acute Comment: Stenting 2 vessels at this admission for acute coronary syndrome. Stable on dual antiplatelet therapy. Maximal risk factor modification. (3) Hyperlipidemia Status: Chronic Comment: Full dose statin therapy Qualifiers: Hyperlipidemia type: pure hypercholesterolemia Qualified Code: E78.00 - Pure hypercholesterolemia (4) Hypertension Status: Chronic Comment: Adequate control on current medications. Qualifiers: Hypertension type: essential hypertension Qualified Code: I10 - Essential hypertension (5) Diabetes mellitus type 2 in nonobese Status: Chronic Comment: Adequate control on current medical therapy without hypoglycemia. Aim for A1c of roughly 7.0 or less (6) Anemia due to end stage renal disease Status: Chronic Comment: On erythropoietin. (7) End stage renal disease on dialysis Status: Acute Comment: As per nephrology. Subjective 24 Hr Interval Summary Free Text/Dictation [place]ish speaking male lying in bed. Constitutional: no complaints Respiratory: no complaints Cardiovascular: no complaints Gastrointestinal: no complaints Exam/Review of Systems Vital Signs Vitals Vital Signs Date Time Temp Pulse Resp B/P Pulse Ox O2 Delivery O2 Flow Rate FiO2 10/12/16 08:32 81 10/12/16 07:43 98.9 20 140/76 92 10/12/16 04:54 3.0 10/11/16 20:30 Nasal Cannula Intake and Output 10/11/16 10/11/16 10/12/16 15:00 23:00 07:00 Intake Total 1120 ml Output Total 1400 ml Balance -280 ml Exam Constitutional: alert, oriented Respiratory: clear to auscultation, normal air movement Cardiovascular: nl pulses, regular rate and rhythm Results Result Diagram: 10/12/16 0650 10/12/16 0650 Results 24 hrs Laboratory Tests Test 10/11/16 12:08 10/11/16 17:22 10/11/16 20:27 10/12/16 06:50 Bedside Glucose 154 210 173 White Blood Count 6.9 Red Blood Count 3.25 L Hemoglobin 8.5 L Hematocrit 27.9 L Mean Corpuscular Volume 85.8 Mean Corpuscular Hemoglobin 26.2 L Mean Corpuscular Hemoglobin Concent 30.5 L Red Cell Distribution Width 15.2 H Platelet Count 253 Mean Platelet Volume 10.8 H Neutrophils % 70.1 Lymphocytes % 17.2 Monocytes % 8.7 Eosinophils % 2.7 Basophils % 0.6 Nucleated Red Blood Cells % 0.0 Neutrophils # 4.9 Lymphocytes # 1.2 Monocytes # 0.6 Eosinophils # 0.2 Basophils # 0.0 Nucleated Red Blood Cells # 0.0 Sodium Level 141 Potassium Level 4.9 Chloride Level 100 Carbon Dioxide Level 32 H Anion Gap 14 Blood Urea Nitrogen 56 H Creatinine 6.91 #H Glucose Level 166 Calcium Level 8.5 Test 10/12/16 07:45 Bedside Glucose 184 Medications Medications Current Medications Clopidogrel Bisulfate (plaVIX) 75 mg DAILY PO Last administered on 10/12/16 08 :27; Admin Dose 75 MG; Start 09/28/16 at 09:00 Ondansetron HCl (Zofran Inj) 4 mg Q6H PRN IV NAUSEA AND/OR VOMITING Last administered on 10/11/16 02:29; Admin Dose 4 MG; Start 09/27/16 at 13:00 Acetaminophen (Tylenol Tab) 650 mg Q6H PRN PO PAIN LEVEL 1-3 OR FEVER; Start at 13:30 Acetaminophen (Tylenol Supp) 650 mg Q6H PRN ID PAIN LEVEL 1-3 OR FEVER; Start 09/27/16 at 13:30 Acetaminophen/ Hydrocodone Bitart ([place] (5/325)) 1 tab Q6H PRN PO MODERATE PAIN LEVEL 4-6 Last administered on 09/28/16 20:43; Admin Dose 1 TAB; Start at 13:30 Acetaminophen/ Hydrocodone Bitart ([place] (5/325)) 2 tab Q6H PRN PO SEVERE PAIN LEVEL 7-10; Start 09/27/16 at 13:30 Morphine Sulfate (morphine) 2 mg Q4H PRN IV SEVERE PAIN LEVEL 7-10; Start 09/27 at 13:30 Docusate Sodium (Colace) 100 mg Q12H PRN PO CONSTIPATION Last administered on 05:41; Admin Dose 100 MG; Start 09/27/16 at 13:30 Magnesium Hydroxide (Milk Of Mag) 30 ml DAILY PRN PO CONSTIPATION; Start at 13:30 Bisacodyl (Dulcolax Supp) 10 mg DAILY PRN ID CONSTIPATION Last administered on 09/30/16 05:41; Admin Dose 10 MG; Start 09/27/16 at 13:30 Nitroglycerin (Nitroglycerin (Sl Tab) 0.4 Mg) 1 tab Q5M PRN SL CHEST PAIN; Start 09/27/16 at 13:30 Miscellaneous Information 1 ea NOTE XX ; Start 09/27/16 at 14:00 Glucose (Glutose) 15 gm Q15M PRN PO DECREASED GLUCOSE; Start 09/27/16 at 14:00 Glucose (Glutose) 22.5 gm Q15M PRN PO DECREASED GLUCOSE; Start 09/27/16 at 14: 00 Dextrose (D50w Syringe) 25 ml Q15M PRN IV DECREASED GLUCOSE; Start 09/27/16 at 14:00 Dextrose (D50w Syringe) 50 ml Q15M PRN IV DECREASED GLUCOSE; Start 09/27/16 at 14:00 Glucagon (Glucagen) 1 mg Q15M PRN IM DECREASED GLUCOSE; Start 09/27/16 at 14:00 Glucose (Glutose) 15 gm Q15M PRN BUCCAL DECREASED GLUCOSE; Start 09/27/16 at 14 :00 Atropine Sulfate (Atropine (Syringe)) 0.5 mg PRN PRN IV BRADYCARDIA (HR <40); Start 09/27/16 at 15:00 Atorvastatin Calcium (Lipitor) 80 mg HS PO Last administered on 10/11/16 20:29 ; Admin Dose 80 MG; Start 09/28/16 at 21:00 Polyethylene Glycol (Miralax) 17 gm DAILY PO Last administered on 10/12/16 08: 27; Admin Dose 17 GM; Start 09/30/16 at 15:00 Morphine Sulfate 2 mg 2 mg Q2H PRN IV FOR NON CARDIAC PAIN (4-10); Start at 21:00 Cefazolin Sodium (Ancef 1 Gm/50 ml (Pmx)) 50 ml @ 100 mls/hr Q24H IVPB Last administered on 10/11/16 22:26; Admin Dose 100 MLS/HR; Start 10/01/16 at 22:00 Insulin Glargine (Lantus) 10 unit DAILY@20 SC Last administered on 10/11/16 20 :35; Admin Dose 10 UNIT; Start 10/05/16 at 20:00 Carvedilol (Coreg) 12.5 mg BID PO Last administered on 10/12/16 08:27; Admin Dose 12.5 MG; Start 10/07/16 at 21:00 Lisinopril (Zestril) 2.5 mg DAILY PO Last administered on 10/12/16 08:27; Admin Dose 2.5 MG; Start 10/08/16 at 09:00 Apixaban (Eliquis) 2.5 mg BID PO Last administered on 10/12/16 08:27; Admin Dose 2.5 MG; Start 10/08/16 at 21:00 COCO GU MD Oct 12, 2016 10:53
[2016-10-12] MEDS: ATORVASTATIN 80 MG TAB PO SCH (20:26)
[2016-10-12] MEDS: INSULIN GLARGINE [LANtus] 3 ML PEN SC SCH (20:37)
[2016-10-12] MEDS: CEFAZOLIN 1 GM/50 ML (PMX) 50 ML IVPB SCH (21:37)
[2016-10-13] VITALS (8 sets, daily range): BP systolic 110–125; BP diastolic 54–79; PULSE 71–77; RESP 20
[2016-10-13] MEDS: INSULIN ASPART [NOVOLOG] 3 ML PEN SC SCH ×4 (08:59→12:40)
[2016-10-13] MEDS: LISINOPRIL 5 MG TAB PO SCH (09:47)
[2016-10-13] MEDS: APIXABAN 5 MG TABLET PO SCH (09:48)
[2016-10-13] MEDS: CLOPIDOGREL 75 MG TAB PO SCH (09:49)
[2016-10-13] MEDS: POLYETHYLENE GLYCOL 17 GM PACKET PO SCH (09:50)
--- NOTE | 2016-10-13 10:43 | PDOCDIS ---
Discharge Instructions DIAGNOSIS Discharge Diagnosis: STEMI CONDITION Patient Condition: Stable HOME CARE INSTRUCTIONS: Diet Instructions: Low Fat /CholesterolSpecial Diet: RENAL, carbohydrate controlled FOLLOW UP/APPOINTMENTS Appointments 1. Rae Lundy MD Specialty: Interventional Cardiology Office Address: [facility] [address] [place] [address], [address] [place] [address] Office OTHER ORDERS: Other Orders: 1. Take medications as per medication list. 2. Activities with assist. 3. Follow a low-cholesterol, carbohydrate controlled, renal diet. 4. Follow-up with cardiology [Dr. Lundy] in 2 weeks. RA REDDY NP Oct 13, 2016 10:43
--- NOTE | 2016-10-13 18:17 | CONS ---
Date/Time of Note Date/Time of Note DATE: 10/13/16 TIME: 18:10 Assessment/Plan Assessment/Plan Additional Assessment/Plan 1. Acute ST-elevation myocardial infarction, status post cardiac catheterization with 2 stents placed in the right coronary artery. 2. End-stage renal disease on hemodialysis 3 times a week. 3. Hypertension. 4. Diabetes mellitus type 2. 5. Bradycardia, severe, status post atropine in ICU.,s/p pacemaker placement PLAN: HD for tomorrow, possible d/c to SNF today ECHO showed EF 65% with stage I DD- Orthostatic negative, pt regular schedule fo r HD is , and Thursday will conitnue to follow up on patient Consultation Date/Type/Reason Admit Date/Time September 27, 2016 at 12:23 Type of Consultation: NEPHROLGOY Referring Provider: HUNTER BASSETT MD 24 HR Interval Summary Free Text/Dictation stable, plan for HD today possibl d/c to SNF today Exam/Review of Systems Vital Signs Vitals Vital Signs Date Time Temp Pulse Resp B/P Pulse Ox O2 Delivery O2 Flow Rate FiO2 10/13/16 13:00 3.0 10/13/16 12:25 75 10/13/16 12:14 98.8 20 117/54 91 10/11/16 20:30 Nasal Cannula Intake and Output 10/12/16 10/12/16 10/13/16 15:00 23:00 07:00 Intake Total 850 ml 700 ml Balance 850 ml 700 ml Results Result Diagram: 10/12/16 0650 10/12/16 0650 Results 24 hrs Laboratory Tests Test 10/12/16 20:17 10/13/16 02:04 10/13/16 08:19 10/13/16 12:37 Bedside Glucose 139 135 160 178 RAYNE FITCH MD Oct 13, 2016 18:17
--- NOTE | 2016-10-13 18:30 | DS ---
DATE OF ADMISSION: 09/27/2016 DATE OF DISCHARGE: 10/13/2016 FINAL DIAGNOSES: 1. ST elevation myocardial infarction. Status post percutaneous coronary intervention of the right coronary artery with stent placements x2. 2. Complete heart block requiring temporary pacemaker wire placement. Status post dual chamber MRI safe pacemaker placement. 3. Essential hypertension. 4. Type 2 diabetes mellitus. 5. Anemia of chronic kidney disease. 6. End-stage renal disease on hemodialysis. 7. Deconditioning. 8. Bilateral renal cysts with possible hemorrhage, however, one cannot rule out any solid renal tumor. 9. Atrial fibrillation. CONSULTATIONS: 1. Dr. Rae Lundy, Interventional Cardiology. 2. Dr. Willie Huerta, Nephrology. 3. Dr. Gamal Hannah, Cardiology, Electrophysiology. 4. Dr. Dawood Lagos, Urology. HOSPITAL COURSE: This is a 70-year-old male with past medical history of type 2 diabetes mellitus, end-stage renal disease on hemodialysis, essential hypertension, and dyslipidemia who came to [facility] due to reported vomiting and chest pain as well as generalized weakness. On the day of admission, the patient's family called paramedics. Paramedics reported ST elevation myocardial infarction. Therefore, a code STEMI was called in the emergency room and the patient was taken to the color laboratory technician and the patient underwent a successful coronary revascularization with 2 drug-eluting stents placed to the RCA. Status post procedure, the patient was transferred to intensive care unit. The patient was noticed to have complete heart block that required temporary pacemaker placement. Therefore, electrophysiology was consulted and the patient underwent a permanent pacemaker placed on 10/01/2016. The patient has underlying end-stage renal disease on hemodialysis. The patient was being followed by nephrology and hemodialysis was done as needed. The patient's renal ultrasound showed a 2.8 cm complex cystic lesion in the left kidney. Because of this finding, urology consult was obtained. As per urology, this could be the patient's one of the chronic bilateral renal cysts. However, it is impossible to rule out any sort of tumor at this time. The patient was found to be severely debilitated. Physical therapy saw the patient. Physical therapy recommended longterm facility placement. The patient has underlying essential hypertension. The patient was maintained on antihypertensives for the same. The patient was maintained on dual antiplatelet therapy. The patient was also noticed to have paroxysmal atrial fibrillation. Hence, the patient was started on Eliquis for stroke prophylaxis. The patient's heart rate remained controlled. The patient had a prolonged hospital course because of multiple procedures that the patient had to undergo including left heart catheterization, temporary pacemaker placement, and permanent pacemaker placement along with the patient's debility that delayed the patient's discharge home. Today (10/13/2016), the patient is stable to be discharged to a longterm facility for further rehabilitation before the patient can be discharged home. DISCHARGE DISPOSITION AND PLAN: The patient will be discharged to longterm facility. The patient will take medications as per medication list. The patient will resume activities with assist. The patient will follow a low cholesterol, carbohydrate controlled, renal diet. He will follow up with cardiology, Dr. Lundy, in 2 weeks. The patient's son, Bk, was telephoned and informed about the patient's discharge plan and discharge instructions. The patient's family verbalized understanding of the discharge instructions. CONDITION AT DISCHARGE: Stable. DISCHARGE MEDICATIONS: 1. Lisinopril 2.5 mg p.o. b.i.d. 2. Eliquis 2.5 mg p.o. b.i.d. 3. Coreg 12.5 mg p.o. b.i.d. 4. Lantus insulin 10 units subcutaneously q. night. 5. MiraLax 17 grams p.o. daily. 6. NovoLog insulin 5 units subcutaneously with meals. 7. Atorvastatin 80 mg p.o. at bedtime. 8. Plavix 75 mg p.o. daily. 9. NovoLog insulin per sliding scale. 10. [place] 5/325 one tablet p.o. q.6h. p.r.n. pain. 11. Colace 100 mg p.o. q.12h. p.r.n. constipation. PERTINENT LABORATORIES, DIAGNOSTIC DATA, AND PROCEDURES: 1. On 09/27/2016, left heart catheterization. Had thrombotic occlusion of the right coronary artery. Successful percutaneous coronary intervention of the right coronary artery with placement of 2 drug-eluting stents. Nonobstructive coronary artery disease in the circumflex. 2. Placement of a temporary pacer on 09/29/2016. 3. Placement of a permanent MRI safe pacemaker on 10/01/2016. [employer] pacemaker. 4. Latest 2D echocardiogram. Ejection fraction of 65%. Stage I diastolic dysfunction. 5. Latest CBC: WBC 6.9, hemoglobin 8.5, hematocrit 27.9, platelet count 253. 6. Latest BMP: Sodium 141, potassium 4.9, chloride 100, carbon dioxide 32, anion gap 14, BUN 56, creatinine 6.9, glucose 166, calcium 8.5. 7. Hemoglobin A1c 9.6. 8. Fasting lipid panel: Triglycerides 97, total cholesterol 178, LDL 80, HDL 79. 9. Renal ultrasound: A 2.8 cm complex cystic lesion in the left kidney. May be hemorrhagic/proteinaceous cyst, although a cystic renal cell carcinoma cannot be excluded. Simple bilateral renal cysts are identified measuring up to 2.3 cm on the right and 1.8 cm on the left. Atrophic and echogenic kidneys consistent with medical renal disease. 10. Brain CT scan on 10/08/2016. No acute intracranial hemorrhage, transcortical infarction, or mass effect. Moderate intracranial atherosclerosis and chronic small vessel ischemic changes. Moderate generalized cerebral volume loss. 11. Chest CT scan that was done on 10/08/2016. Patchy bilateral perihilar pulmonary ground glass opacities seen along with areas of interlobular septal thickening suggestive of pulmonary edema. There are small to mild bilateral pleural effusions. Coronary arterial and aortic atherosclerotic calcifications. At this time, I would like to thank all the consultants for seeing the patient, doing the necessary procedures, and providing clinical recommendations. The case and management of this patient was fully discussed with Dr. Monroe. Approximately 40 minutes was spent on coordinating the discharge on this patient. RA MONROE MD, AM/NTS Conf#: [id number] DID#: [id number] CC: KATHARINE PETERS MD;*EndCC* MTDD
== END 2016-10-13 13:30 | DRG 242 ==
LOC: E/R 10:42 → CCL 11:30 → SDS 11:30 → ICU 12:23 → CCL 12:23 → UNDOADMIN 12:23 → MS4 10-04 04:50
PROVIDERS: ADMIT Internal Medicine; ATTEND Internal Medicine
PROC: 5A1D60Z (ICD-10-PCS; 2016-09-27)
PROC: 5A1223Z Performance of Cardiac Pacing, Continuous (ICD-10-PCS; 2016-09-29)
PROC: 4A023N7 Measurement of Cardiac Sampling and Pressure, Left Heart, Percutaneous Approach (ICD-10-PCS; 2016-09-29)
PROC: B211YZZ Fluoroscopy of Multiple Coronary Arteries using Other Contrast (ICD-10-PCS; 2016-09-29)
PROC: B215YZZ Fluoroscopy of Left Heart using Other Contrast (ICD-10-PCS; 2016-09-29)
PROC: 027035Z Dilation of Coronary Artery, One Artery with Two Drug-eluting Intraluminal Devices, Percutaneous Approach (ICD-10-PCS; principal; 2016-09-29 10:30)
PROC: 0JH606Z Insertion of Pacemaker, Dual Chamber into Chest Subcutaneous Tissue and Fascia, Open Approach (ICD-10-PCS; 2016-10-01)
PROC: 02H63JZ Insertion of Pacemaker Lead into Right Atrium, Percutaneous Approach (ICD-10-PCS; 2016-10-01)
PROC: 02HK3JZ Insertion of Pacemaker Lead into Right Ventricle, Percutaneous Approach (ICD-10-PCS; 2016-10-01)
DX: I21.11 ST elevation (STEMI) myocardial infarction involving right coronary artery (principal); N18.6 End stage renal disease; I44.2 Atrioventricular block, complete; I95.9 Hypotension, unspecified; I12.0 Hypertensive chronic kidney disease with stage 5 chronic kidney disease or end stage renal disease; E11.22 Type 2 diabetes mellitus with diabetic chronic kidney disease; I48.92 Unspecified atrial flutter; I48.0 Paroxysmal atrial fibrillation; N28.1 Cyst of kidney, acquired; N28.89 Other specified disorders of kidney and ureter; E78.5 Hyperlipidemia, unspecified; I25.10 Atherosclerotic heart disease of native coronary artery without angina pectoris; D63.1 Anemia in chronic kidney disease; Z79.4 Long term (current) use of insulin
CPT/HCPCS: 36415; 70450; 71010; 71250; 76775; 80048; 80053; 80061; 82550; 82553; 82962; 83036; 83735; 84100; 84436; 84443; 84479; 84484; 85025; 85610; 85730; 87081; 90935; 92953; 93005; 93306; 94640; 94664; 96372; 97116; 97162; 97530; C1725; C1769; C1874; C1887; C1894; C9606; J0461; J0690; J1265; J1644; J1815; J2250; J2405; J3010; J7030; P9047; Q9967

== ENCOUNTER 2017-03-30 13:02 | Inpatient (IN) | payer MEDICARE, OTHER ==
[~2017-03-30] VITALS: Ht 170.2 cm; Wt 81.1 kg
[2017-03-30] VITALS (27 sets, daily range): BP systolic 116–198; BP diastolic 58–144; PULSE 77–99; RESP 15–50; Ht 170.2 cm; Wt 81.1 kg
[2017-03-30] MEDS ORDERED: NITROGLYCERIN 2% 1 GM OINT PKT TD STA (13:17)
[2017-03-30] MEDS ORDERED: FUROSEMIDE 40 MG INJ IV STA (13:17)
[2017-03-30] MEDS ORDERED: ASPIRIN 81 MG TAB PO STA (13:17)
[2017-03-30] MEDS ORDERED: NITROGLYCERIN 50 MG/D5W (PMX) 250 ML IV STA (13:22)
--- NOTE | 2017-03-30 13:36 | RADRPT ---
PROCEDURE: XR Chest. CLINICAL INDICATION: Chest pain TECHNIQUE: Single portable view of the chest was obtained COMPARISON: CT CHESTHR 10/08/2016 FINDINGS: The heart is enlarged. There is a right-sided pacemaker in place. There is almost complete opacification of the right hemithorax. There is no pneumothorax. RPTAT: AA IMPRESSION: Almost complete opacification of the right hemithorax, likely secondary to a large pleural effusion with atelectasis. Further evaluation with CT chest is recommended. Moderate Cardiomegaly. .Uriel Kaufman MD, MD Date Time Electronically viewed and signed by .Uriel Kaufman MD, on 03/30/2017 13:36 .S/
[2017-03-30 13:45] LABS: BASOPHILS % 0.4 % (0.0-2.0); EOSINOPHILS # 0.1 10^3/ul (0.0-0.5); EOSINOPHILS % 0.5 % (0.0-7.0); HEMOGLOBIN 11.6 g/dl (14.0-18.0); LYMPHOCYTES % 19.8 % (15.0-51.0); MEAN CORPUSCULAR HEMOGLOBIN 25.2 pg (29.0-33.0); MEAN CORPUSCULAR HGB CONC 30.5 g/dl (32.0-37.0); MEAN CORPUSCULAR VOLUME 82.4 fl (82.0-101.0); MEAN PLATELET VOLUME 10.4 fl (7.4-10.4); MONOCYTE # 0.8 10^3/ul (0.3-0.9); MONOCYTES % 8.2 % (0.0-11.0); NEUTROPHILS % 70.8 % (39.0-77.0); PLATELET COUNT 293 10^3/UL (140-415); RED BLOOD COUNT 4.61 10^6/ul (4.70-6.10); RED CELL DISTRIBUTION WIDTH 14.6 % (11.5-14.5); WHITE BLOOD COUNT 9.9 10^3/ul (4.8-10.8)
[2017-03-30] MEDS ORDERED: CEFEPIME 2GM/50 ML (PMX) 50 ML IVPB STA (13:45)
[2017-03-30 14:00] LABS: CALCIUM 9.3 mg/dl (8.4-10.2); CREATININE 7.46 mg/dl (0.61-1.24)
[2017-03-30] MEDS ORDERED: VANCOMYCIN 1 GM (PMX) 250 ML IVPB ONE (14:00)
[2017-03-30 14:08] LABS: POTASSIUM 5.3 mmol/L (3.5-5.1)
[2017-03-30 14:11] LABS: TROPONIN-I 0.022 ng/ml (0.00-0.12)
[2017-03-30] MEDS ORDERED: APIX2.5T PO (14:19)
[2017-03-30] MEDS ORDERED: METO-429 PO (14:20)
[2017-03-30] MEDS ORDERED: ATOR80TA75 PO (14:20)
[2017-03-30] MEDS ORDERED: CLOP75TA27 PO (14:20)
[2017-03-30] MEDS ORDERED: LANT3I SC (14:21)
[2017-03-30] MEDS ORDERED: DOCU-159 PO (14:21)
[2017-03-30] MEDS ORDERED: LISI2.5T59 PO (14:22)
[2017-03-30] MEDS ORDERED: SEVE800T7 PO (14:23)
[2017-03-30] MEDS ORDERED: POLY17PO6 PO (14:23)
[2017-03-30] MEDS ORDERED: NOVO3I SC (14:23)
[2017-03-30] MEDS ORDERED: NIFE60TA7 PO (14:24)
[2017-03-30] MEDS ORDERED: ONDA4TAB8 PO (14:24)
[2017-03-30] MEDS ORDERED: ACET325T45 PO (14:25)
[2017-03-30] MEDS ORDERED: BISA10SU75 PR (14:25)
[2017-03-30] MEDS ORDERED: POLYETHYLENE GLYCOL 17 GM PACKET PO PRN (14:30)
--- NOTE | 2017-03-30 14:30 | ERD ---
ER Documentation Chief Complaint Chief Complaint sob and chest pain x 4 days HPI This is a 71-year-old gentleman who speaks back. Son at bedside translating. The patient has a history of end-stage renal disease on dialysis, last dialysis was potentially Thursday. The patient has been describing worsening shortness of breath over 3 day timeframe. The symptoms are dramatically worse today with significant work of breathing and hypoxia at routine physician follow-up. The patient was told to come to the emergency room immediately. On arrival the patient is in extremis, hypoxic and requires emergent intervention. Remainder of HPI limited. ROS Emergent situation Medications Home Meds Reported Medications Acetaminophen* (Acetaminophen*) 325 Mg Tablet, 325 MG PO Q4H Y for PAIN AND OR ELEVATED TEMP, #30 TAB 03/30/17 Bisacodyl* (Bisacodyl*) 10 Mg Supp, 10 MG [place] Q24H Y for CONSTIPATION, SUPP 03/30/17 Nifedipine* (Nifedipine ER*) 60 Mg Tablet.sa, 60 MG PO DAILY, TAB.SA 03/30/17 Ondansetron Hcl* (Zofran*) 4 Mg Tablet, 4 MG PO Q6H Y for NAUSEA AND OR VOMITING , TAB 03/30/17 Sevelamer Carbonate* (Renvela*) 800 Mg Tablet, 0.8 GM PO WITH MEALS, TAB 03/30/17 Insulin Aspart* (Novolog Insulin Pen*) 100 Unit/Ml Soln, 0 SC .SLIDING SCALE AC , EA 03/30/17 Polyethylene Glycol* (Miralax*) 17 Gm Powd.pack, 17 GM PO DAILY Y for CONSTIPATION, #30 PACKET 03/30/17 Lisinopril* (Lisinopril*) 2.5 Mg Tablet, 2.5 MG PO BID, #30 TAB 03/30/17 Insulin Glargine* (Lantus*) 100 Unit/Ml Soln, 10 UNIT SC QHS, #1 VIAL 03/30/17 Docusate Sodium* (Docusate Sodium*) 100 Mg Capsule, 100 MG PO BID, #60 CAP 03/30/17 Clopidogrel Bisulfate (Clopidogrel) 75 Mg Tablet, 75 MG PO DAILY, #30 TAB 03/30/17 Metoprolol Tartrate* (Lopressor*) 50 Mg Tab, 50 MG PO BID, #60 TAB 03/30/17 Atorvastatin* (Atorvastatin*) 80 Mg Tablet, 80 MG PO QHS, #30 TAB 03/30/17 Apixaban* (Eliquis*) 2.5 Mg Tablet, 2.5 MG PO BID, TAB 03/30/17 Allergies Allergies: Coded Allergies: No Known Allergy (Unverified , 03/30/17) PMhx/Soc History of Surgery: No (PACEMAKER ) Anesthesia Reaction: No Hx Neurological Disorder: No Hx Respiratory Disorders: No Hx Cardiac Disorders: Yes (HTN) Hx Psychiatric Problems: No Hx Miscellaneous Medical Probl: Yes (ESRD, DIALYSIS ) Hx Alcohol Use: No Hx Substance Use: No Hx Tobacco Use: No Smoking Status: Former smoker FmHx Family History: No diabetes Physical Exam Vitals Vital Signs Date Time Temp Pulse Resp B/P Pulse Ox O2 Delivery O2 Flow Rate FiO2 03/30/17 13:40 89 18 183/66 100 BIPAP 15.0 03/30/17 13:33 90 90 100 03/30/17 13:06 98.3 85 24 182/77 89 Physical Exam General: Elderly gentleman with respiratory distress, speaking in short sentences, in extremis Head: Normocephalic, atraumatic. Eyes: Pupils equally reactive, EOM intact ENT: Moist mucous membranes Neck: Supple, no lymphadenopathy Respiratory: Decreased or absent breath sounds of the right lung field, rales at the left base, tachypnea and increased work of breathing Cardiovascular: RRR, no murmurs, rubs, or gallops Abdominal: Soft, non-tender, non-distended, no peritoneal signs : Deferred MSK: No edema, no unilateral swelling, 5/5 strength Neurologic: Alert and oriented, moving all extremities, no focal weakness, no cerebellar signs Skin: No rash Psych: Normal mood Result Diagram: 03/30/17 1325 03/30/17 1325 Results 24 hrs Laboratory Tests Test 03/30/17 13:25 White Blood Count 9.910^3/ul Red Blood Count 4.6110^6/ul Hemoglobin 11.6g/dl Hematocrit 38.0% Mean Corpuscular Volume 82.4fl Mean Corpuscular Hemoglobin 25.2pg Mean Corpuscular Hemoglobin Concent 30.5g/dl Red Cell Distribution Width 14.6% Platelet Count 88279^3/UL Mean Platelet Volume 10.4fl Neutrophils % 70.8% Lymphocytes % 19.8% Monocytes % 8.2% Eosinophils % 0.5% Basophils % 0.4% Nucleated Red Blood Cells % 0.0/100WBC Neutrophils # 7.010^3/ul Lymphocytes # 2.010^3/ul Monocytes # 0.810^3/ul Eosinophils # 0.110^3/ul Basophils # 0.010^3/ul Nucleated Red Blood Cells # 0.010^3/ul Sodium Level 139mmol/L Potassium Level 5.3mmol/L Chloride Level 91mmol/L Carbon Dioxide Level 35mmol/L Anion Gap 18 Blood Urea Nitrogen 63mg/dl Creatinine 7.46mg/dl Glucose Level 197mg/dl Calcium Level 9.3mg/dl Troponin I 0.022ng/ml Current Medications Medications (Trade) Dose Ordered Sig/Jesika Route PRN Reason Start Time Stop Time Status Last Admin Dose Admin Aspirin (Aspirin) 162 mg ONCE STAT PO 03/30/17 13:17 03/30/17 13:19 DC 03/30/17 13:45 Nitroglycerin (Nitroglycerin 2% Oint) 1 inch ONCE STAT TD 03/30/17 13:17 03/30/17 13:22 DC Furosemide 40 mg 40 mg ONCE STAT IV 03/30/17 13:17 03/30/17 13:19 DC 03/30/17 13:45 Nitroglycerin/ Dextrose 250 ml @ 6 mls/hr ONCE STAT IV 03/30/17 13:22 04/01/17 07:01 03/30/17 13:45 Cefepime HCl 50 ml @ 100 mls/hr ONCE STAT IVPB 03/30/17 13:45 03/30/17 14:14 DC 03/30/17 14:30 Vancomycin HCl (Vancocin) 250 ml @ 125 mls/hr ONCE ONCE IVPB 03/30/17 14:00 03/30/17 15:59 Procedures/MDM EKG, MONITORS, & DIAGNOSTIC IMAGING: EKG: I reviewed and interpreted a 12-lead EKG. Rhythm: Normal sinus rhythm Ectopy: None Intervals: No abnormalities ST segments: No elevations or depressions T waves: No contiguous inversions Chest x-ray: I reviewed and interpreted a 1 view of the chest Mediastinum: No enlargement Cardiac silhouette: No cardiomegaly Airspace: Complete whiteout of the right lung field consistent with significant lateral effusion Bones: No evidence of fracture LAB INTERPRETATION: No significant hyperkalemia, end-stage renal disease, no leukocytosis MEDICAL DECISION MAKING: The patient presents to the emergency room because of shortness of breath. Upon arrival the patient is in extremis. He has hypoxia and increased work of breathing with absence of lung sounds on the right lung field. The patient is also is also hypertensive. Initially I am concerned about volume overload in the setting of end-stage renal disease, hypertensive emergency. However, chest x-ray also shows white out of the right lung field consistent with significant pleural effusion. I cannot rule out pneumonia but given the patient has no fever and no white count I think this is unlikely. Empiric antibiotics provided in the form of vancomycin and cefepime. Fluids not provided because this is unlikely secondary to sepsis and the patient is already in volume overload. These would be contraindicated and likely push the patient to complete respiratory failure. ER COURSE: The patient was emergently started on BiPAP. He was started on Cardene drip and given aspirin. The patient was given antibiotics. Emergent consultation with nephrology, Dr. Rowan Huerta and pulmonology Dr. De Jesus who is at the bedside was made. Dr. De Jesus is recommending urgent ultrasound-guided thoracentesis. I spoke to Dr. Lopez who will arrange for this at the bedside. The patient seems to be stabilizing with interventions as described above. The patient will still require intensive care unit given complexity of care to be provided. I kept the patient and/or family informed of laboratory and diagnostic imaging results throughout the emergency room course. DISPOSITION PLAN: Intensive care unit CONSULTATION: Accepting care team and consultations: I discussed the current laboratory data, diagnostic imaging and emergency care provided. Admitting team: Dr. Lopes Admitting team indication: Insurance directed Consulting services: Nephrology Dr. Rowan Huerta pulmonology Dr. De Jesus interventional radiology Dr. Lopez Critical Care Note: Total time: 47 minutes Indication/Organ System Threat: Acute respiratory failure I spent the above amount of critical care time with the patient, not including billable procedures. This included chart review, consultations, repeat bedside evaluations, and titration of appropriate medications to prevent cardiopulmonary or respiratory collapse. Departure Diagnosis: Primary Impression: End stage renal disease on dialysis Additional Impressions: Acute respiratory failure Respiratory failure complication: hypoxia Qualified Code: J96.01 - Acute respiratory failure with hypoxia Pleural effusion Hypertensive emergency Condition: Critical RUDY MA MD Mar 30, 2017 14:30
--- NOTE | 2017-03-30 15:06 | HP ---
Date/Time of Note Date/Time of Note DATE: 03/30/17 TIME: 15:06 Assessment/Plan VTE Prophylaxis VTE Prophylaxis Intervention: SCD's Lines/Catheters IV Catheter Type (from Nrsg): Saline Lock Assessment/Plan Assessment/Plan 1. Acute hypoxic respiratory failure secondary to pleural effusion in right lung - Patient found to be saturating 84-88% in field and 89% in ED - Placed on BIPAP and improvement with saturations to 100% - Pulmonology consultation appreciated - CXR shows white out of right lung - Continue monitoring on BIPAP and wean as tolerated - Bronchodilators as needed 2. Large Right pleural effusion - IR consulted for drainage of pleural fluid and will send fluid for studies - Pulm on board and consultation appreciated - Given dose of Lasix in ED - Will order CT scan of chest 3. ?Acute on chronic CHF - Last ECHO 10/2016 showed EF 65% with stage 1 diastolic dysfunction - Given Lasix in ED and will continue on high dose given ESRD - Monitor I/O and daily weights - CXR shows cardiomegaly - Cardiology consult placed to Dr. Lundy 4. ESRD on HD - patient on scheduled - Nephrology consult placed in ED and recommendations appreciated. 5. Hypertensive urgency - patient placed on Cardene drip in ED and will wean as tolerated - Will resume home medications 6. DM, type 2 - Continue home insulin regime - ISS and accuchecks - Will adjust as needed - A1c 6.9 7. Heart block/bradycardia with PPM - cardiology consult placed 8. CAD s/p stent 10/2016 - continue on home medications - Continue on Plavix given recent stenting and will monitor for acute bleeding 9. Atrial fibrillation - on Eliquis and BB - rate controlled 10. Diet - Carb controlled 11. GI PPx - PPI 12. DVT - SCD 13. Code status - Full Cose 14. Disposition - Will admit to ICU for close monitoring HPI/ROS Admit Date/Time Admit Date/Time 03/30/17 Hx of Present Illness 71 yo [place] speaking M with PMH ESRD on HD, CAD s/p stent in 10/2016, DM, bradycardia with PPM, HTN, atrial fibrillation and anemia of chronic disease presented to ED c/o worsening SOB over the past 4 days. History obtained from patient as well as son at bedside who assisted with translation. Per son patient was experiencing worsening SOB with persistent cough and white phlegm but denies any wheezing, fevers, chills, nausea, vomiting, chest pain, LOC, or abdominal issues. Patient underwent HD on and Thursday which did not relieve his SOB. Son encouraged father to go to ED but refused. Patient has home health that comes weekly and recorded O2 saturation of 84-86% and after calling PCP was instructed to go straight to the ED. Patient was found very labored in the ED saturating 89% and was emergently placed on BIPAP. Patient was also found to be hypertensive with SBP 180s which son said has been persistent over past 2 weeks. Patient was last in the hospital in October 2016 for Acute [place] s/p stenting and per Dr. Lundy office was lost to follow up. ROS All 12 systems reviewed and positives as per HPI. All other negative. Constitutional: No chills, No diaphoresis, No disoriented, No fatigue, No nausea Eyes: no complaints ENT: No congestion, No discharge, No pain Respiratory: cough, shortness of breath, sputum, No wheezing Cardiovascular: edema, No chest pain, No lightheadedness, No palpitations Gastrointestinal: No constipation, No diarrhea, No nausea, No pain, No vomiting Genitourinary: no complaints Musculoskeletal: no complaints, No back pain, No restricted range of motion Skin: No erythema, No laceration, No rash Neurologic: no complaints Endocrine: no complaints Lymphatic: no complaints Psychological: no complaints Immunologic: no complaints PMH/Family/Social Past Medical History Medical History: coronary artery disease, diabetes, hypertension, renal disease Past Surgical History Past Surgical Hx: coronary bypass surgery Family History Significant Family History: renal disease Social History Alcohol Use: none Smoking Status: Former smoker Drug Use: none Exam/Review of Systems Vital Signs Vitals Vital Signs Date Time Temp Pulse Resp B/P Pulse Ox O2 Delivery O2 Flow Rate FiO2 03/30/17 13:40 89 18 183/66 100 BIPAP 15.0 03/30/17 13:33 100 03/30/17 13:06 98.3 Exam Exam General: Patient is laying in bed and answers questions appropriately, BIPAP in place and in no acute respiratory distress Mentation: Patient is alert and oriented 4, Head: Normocephalic atraumatic Neck: Supple, nontender, midline Respiratory: diminished breath sounds on right, crackles left Cardiovascular: regular rate and rhythm, no obvious murmurs. +1 LE edema b/l, left worse than right Gastrointestinal: non-tender to palpation, bowel sounds heard. non distended. no rebound or guarding Neurological: Moves all extremities spontaneously Skin: no rashes, ecchymosis Labs Result Diagram: 03/30/17 1325 03/30/17 1325 Medications Medications Current Medications Vancomycin HCl (Vancocin) 250 ml @ 125 mls/hr ONCE ONCE IVPB ; Start at 14:00; Stop 03/30/17 at 15:59 JAE RAHMAN MD Mar 30, 2017 15:06
[2017-03-30 15:10] LABS: INR 1.11; PARTIAL THROMBOPLASTIN TIME 32.5 Sec (25.0-35.0); PROTIME 14.3 Sec (12.2-14.2); PT RATIO 1.1
[2017-03-30] MEDS ORDERED: ALBUTEROL 0.083% (NEB) 2.5 MG/3 ML AMP NEB PRN (15:30)
[2017-03-30] MEDS ORDERED: GLUCOSE GEL 15 GRAM TUBE PO PRN ×2 (15:30)
[2017-03-30] MEDS ORDERED: ONDANSETRON 4 MG INJ IV PRN (15:30)
[2017-03-30] MEDS ORDERED: GLUCAGON 1 MG INJ IM PRN (15:30)
[2017-03-30] MEDS ORDERED: DEXTROSE 50% 50 ML SYRINGE IV PRN ×2 (15:30)
[2017-03-30] MEDS ORDERED: ACETAMINOPHEN 325 MG TAB PO PRN (15:30)
[2017-03-30] MEDS ORDERED: GLUCOSE GEL 15 GRAM TUBE BUCCAL PRN (15:30)
[2017-03-30] MEDS ORDERED: LIDOCAINE 1% (MPF) 5 ML VIAL ONE (17:08)
[2017-03-30 17:35] LABS: FLD RBC 10000 /uL; FLD WBC 160 /cmm
--- NOTE | 2017-03-30 17:36 | RADRPT ---
PROCEDURE: US guided right thoracentesis. CLINICAL INDICATION: Shortness of breath. Right pleural effusion. TECHNIQUE: Prior to the procedure, informed consent was obtained. The risks, benefits, and alternatives were e xplained to the patient or the patient's family, including but not limited to bleeding, infection, p ain, visceral or vascular damage, shock, pneumothorax, chest tube placement, air embolism, and . The patient or the patient's family understood the risks and the alternatives and wished to proce ed with the study. Informed written consent was obtained. A procedural pause was performed. The patient's name, date of , and procedure to be performed were verified. Ultrasound of the right hemithorax was performed in the axial and sagittal planes. A large multilocu lated right pleural effusion is noted. Utilizing ultrasound guidance, optimal location for entry to the pleural cavity was ascertained. The overlying skin was prepped and draped in the usual sterile fashion. Approximately 10 ml of 1% Xylocaine was injected locally for pain control. Using ultrasou nd guidance, a 5-[place] Yueh catheter was introduced into the right pleural space without difficulty . Fluid was aspirated. COMPARISON: Chest x-ray done earlier the same day. FINDINGS: Initial ultrasound demonstrates fluid in the right pleural space. There are multiple small loculatio ns. Ultrasound of the right side of the chest following thoracentesis once again demonstrates a larg e multiloculated pleural effusion. Approximately 0.250 liters of serous fluid was aspirated and sent to the laboratory. IMPRESSION: 1. Multiloculated large right pleural effusion. 2. Following the thoracentesis, most of the fluid remains due to the multiple loculations. 3. Only 0.250 liters of fluid was able to be aspirated. RPTAT: QQ .Arvin Lopez MD, Date Time Electronically viewed and signed by .Arvin Lopez MD, MD on 03/30/2017 17:35 .R/
--- NOTE | 2017-03-30 17:37 | RADRPT ---
PROCEDURE: XR Chest. CLINICAL INDICATION: Shortness of breath. Post right thoracentesis. TECHNIQUE: Single frontal view. COMPARISON: Prior study done earlier the same day. FINDINGS: There is complete opacification of the right hemithorax, worse than seen previously. The left lung i s clear. The heart is enlarged. There is a right-sided dual lead permanent pacemaker. There is no left pleural effusion. There is no pneumothorax. IMPRESSION: 1. Complete opacification of the right hemithorax, worse than seen previously. 2. Cardiomegaly. 3. Permanent pacemaker. 4. No pneumothorax following right thoracentesis. RPTAT: QQ .Arvin Lopez MD, MD Date Time Electronically viewed and signed by .Arvin Lopez MD, MD on 03/30/2017 17:37 .R/
[2017-03-30 17:42] LABS: ALBUMIN 2.2 g/dl (3.3-4.9); FLUID GLUCOSE 107 mg/dl; FLUID TOTAL PROTEIN 4.5 g/dl; FLUID TYPE PLEURAL FLUID
[2017-03-30 17:56] LABS: FLD CLARITY CLOUDY; FLD COLOR ORANGE; FLD TYPE PLEURAL
[2017-03-30 18:09] LABS: FLUID LD 5764 U/L
[2017-03-30 18:11] LABS: FLUID TYPE PLEURAL FLUID
--- NOTE | 2017-03-30 18:57 | CONS ---
Date/Time of Note Date/Time of Note DATE: 03/30/17 TIME: 18:49 Assessment/Plan Assessment/Plan Problems: (1) Acute respiratory failure Status: Acute Qualifiers: Qualified Code: J96.01 - Acute respiratory failure with hypoxia (2) Pleural effusion Status: Acute (3) Hypertensive emergency Status: Acute (4) End stage renal disease on dialysis Status: Acute (5) Anemia due to end stage renal disease Status: Chronic (6) Complete heart block (7) Diabetes mellitus type 2 in nonobese Status: Chronic (8) Hypertension Status: Chronic (9) Hyperlipidemia Status: Chronic Additional Assessment/Plan Acute RS failure ON BIPAPA NTG drip for HTN urgency CT with/wo contrast Logan r/o Obstructive etiiology of bronchus R/O MLg Pulm on case 2D echo. Consultation Date/Type/Reason Admit Date/Time 03/30/17 Date of Consultation: Mar 30, 2017 Type of Consultation: Int and Endovasc Cardiology Reason for Consultation SOB, CAD, PAD Hx of Present Illness Patient is know to me form out pt with history of [place] with PCI of RCA, SSS s/p st sayra PPM implantation, HTN, ESRD on HD, Severe PAD and Venous disease, HLD who presented to ER with Severe SOB, found to have white out of his right lung, likely PNA, s/p thoracocentesis with 250cc fluid only. No WBC, NO fever, Less likely this is Infection at this extent, I would get Contrast CT with Logan. Constitutional: no complaints Past Medical History Medical History: coronary artery disease, diabetes, hypertension, renal disease Past Surgical History Past Surgical Hx: coronary bypass surgery Social History Alcohol Use: none Smoking Status: Former smoker Drug Use: none Exam/Review of Systems Vital Signs Vitals Vital Signs Date Time Temp Pulse Resp B/P Pulse Ox O2 Delivery O2 Flow Rate FiO2 03/30/17 17:48 90 03/30/17 17:32 100 40 03/30/17 15:51 20 174/75 BIPAP 7.5 03/30/17 13:06 98.3 Exam Constitutional: alert Psych: no complaints Head: normocephalic Eyes: nl conjunctiva ENMT: nl external ears & nose Neck: supple Respiratory: diminished breath sounds Results Result Diagram: 03/30/17 1325 03/30/17 1325 Results 24 hrs Laboratory Tests Test 03/30/17 13:25 03/30/17 14:05 03/30/17 16:05 03/30/17 16:25 White Blood Count 9.9 # Red Blood Count 4.61 #L Hemoglobin 11.6 #L Hematocrit 38.0 #L Mean Corpuscular Volume 82.4 Mean Corpuscular Hemoglobin 25.2 L Mean Corpuscular Hemoglobin Concent 30.5 L Red Cell Distribution Width 14.6 H Platelet Count 293 Mean Platelet Volume 10.4 Neutrophils % 70.8 Lymphocytes % 19.8 Monocytes % 8.2 Eosinophils % 0.5 Basophils % 0.4 Nucleated Red Blood Cells % 0.0 Neutrophils # 7.0 Lymphocytes # 2.0 Monocytes # 0.8 Eosinophils # 0.1 Basophils # 0.0 Nucleated Red Blood Cells # 0.0 Sodium Level 139 Potassium Level 5.3 H Chloride Level 91 L Carbon Dioxide Level 35 H Anion Gap 18 H Blood Urea Nitrogen 63 H Creatinine 7.46 H Glucose Level 197 Hemoglobin A1c 6.9 H Calcium Level 9.3 Troponin I 0.022 Prothrombin Time 14.3 H Prothrombin Time Ratio 1.1 INR International Normalized Ratio 1.11 Activated Partial Thromboplast Time 32.5 Lactic Acid Level 1.3 1.7 Body Fluid Type PLEURAL Body Fluid Volume 200.0 Body Fluid Color ORANGE Body Fluid Appearance CLOUDY Body Fluid WBC 160 Body Fluid RBC (Auto) 20912 Body Fluid Polynuclear WBCs (%) 60.0 Body Fluid Mononuclear Cells % Auto 40.0 Body Fluid Glucose 107 Body Fluid Total Protein 4.5 Body Fluid Lactate Dehydrogenase 5764 Albumin 2.2 L Medications Medications Current Medications Apixaban (Eliquis) 2.5 mg BID PO ; Start 03/31/17 at 09:00 Atorvastatin Calcium (Lipitor) 80 mg QHS PO ; Start 03/30/17 at 21:00 Bisacodyl (Dulcolax Supp) 10 mg Q24H PRN NE CONSTIPATION; Start 03/30/17 at 14 :30 Clopidogrel Bisulfate (plaVIX) 75 mg DAILY PO ; Start 03/31/17 at 09:00 Insulin Glargine (Lantus) 10 unit QHS SC ; Start 03/30/17 at 21:00 Lisinopril (Zestril) 2.5 mg BID PO ; Start 03/30/17 at 21:00 Metoprolol Tartrate (Lopressor) 50 mg BID PO ; Start 03/30/17 at 21:00 Nifedipine (Procardia Xl) 60 mg DAILY PO ; Start 03/31/17 at 09:00 Polyethylene Glycol (Miralax) 17 gm DAILY PRN PO CONSTIPATION; Start 03/30/17 at 14:30 Ondansetron HCl (Zofran Inj) 4 mg Q6H PRN IV NAUSEA AND/OR VOMITING; Start at 15:30 Acetaminophen (Tylenol Tab) 650 mg Q6H PRN PO PAIN LEVEL 1-3 OR FEVER; Start 03/30/17 at 15:30 Docusate Sodium (Colace) 100 mg Q12H PRN PO CONSTIPATION; Start 03/30/17 at 15 :30 Diagnostic Test (Pha) (Accu-Chek) 1 ea 02 XX ; Start 03/31/17 at 02:00 Miscellaneous Information 1 ea NOTE XX ; Start 03/30/17 at 15:30 Glucose (Glutose) 15 gm Q15M PRN PO DECREASED GLUCOSE; Start 03/30/17 at 15:30 Glucose (Glutose) 22.5 gm Q15M PRN PO DECREASED GLUCOSE; Start 03/30/17 at 15: 30 Dextrose (D50w Syringe) 25 ml Q15M PRN IV DECREASED GLUCOSE; Start 03/30/17 at 15:30 Dextrose (D50w Syringe) 50 ml Q15M PRN IV DECREASED GLUCOSE; Start 03/30/17 at 15:30 Glucagon (Glucagen) 1 mg Q15M PRN IM DECREASED GLUCOSE; Start 03/30/17 at 15: 30 Glucose (Glutose) 15 gm Q15M PRN BUCCAL DECREASED GLUCOSE; Start 03/30/17 at 15:30 Pantoprazole (Protonix Iv) 40 mg DAILY@06 IV ; Start 03/31/17 at 06:00 HUNTER BASSETT MD Mar 30, 2017 18:57
[2017-03-30] MEDS: SEVELAMER CARBONATE 0.8 GM PKT PO SCH (19:00)
[2017-03-30] MEDS ORDERED: GUAIFENESIN/CODEINE 5ML CUP PO PRN (19:30)
[2017-03-30 19:37] LABS: TROPONIN-I 0.028 ng/ml (0.00-0.12)
[2017-03-30 19:39] LABS: CK-MB 1.04 ng/ml (0.0-2.4)
--- NOTE | 2017-03-30 19:41 | CONS ---
Date/Time of Note Date/Time of Note DATE: 03/30/17 TIME: 19:34 Assessment/Plan Assessment/Plan Additional Assessment/Plan 1. Acute hypoxic resp failure due to acute fluid overload and Pleural effusion 2. ESRD on HD 3. Right hemithorax multiple loculated right pleural effusion s/p Thoracentesis 250 cc drained 4. h/o CAD s/p CABG 5/ H/o recent [place] and s/p stenting by 6/ HTN 7/ HL Plan: Pt was seen in ER- s/p Thoracentesis 250 cc drained, pt has multiple loculations on right lung plan is to do HD today after pt go to ICU, will plan for another HD tomorrow Cardiology and pulmonary has been consulted on case, pt is on BIPAP- Mx as per pulmonary Thanks for consultation, I will continue to follow up on patient Consultation Date/Type/Reason Admit Date/Time 03/30/17 Date of Consultation: Mar 30, 2017 Type of Consultation: NEPHROLOGY Reason for Consultation acute fluid overload, Acclerated HTN, pleural effusion, ESRD on HD Hx of Present Illness 71 yo [place] speaking M with PMH ESRD on HD, CAD s/p stent in 10/2016, DM, bradycardia with PPM, HTN, atrial fibrillation and anemia of chronic disease presented to ED c/o worsening SOB over the past 4 days. History obtained from patient as well as son at bedside who assisted with translation. Per son patient was experiencing worsening SOB with persistent cough and white phlegm but denies any wheezing, fevers, chills, nausea, vomiting, chest pain, LOC, or abdominal issues. Patient underwent HD on and Thursday which did not relieve his SOB. Son encouraged father to go to ED but refused. Patient has home health that comes weekly and recorded O2 saturation of 84-86% and after calling PCP was instructed to go straight to the ED. Patient was found very labored in the ED saturating 89% and was emergently placed on BIPAP. Patient was also found to be hypertensive with SBP 180s which son said has been persistent over past 2 weeks. Patient was last in the hospital in October 2016 for Acute [place] s/p stenting. Eyes: no complaints Respiratory: cough, pleuritic pain, shortness of breath Cardiovascular: no complaints Gastrointestinal: no complaints Genitourinary: no complaints Musculoskeletal: no complaints Skin: no complaints Neurologic: no complaints Lymphatic: no complaints Psychological: no complaints Immunologic: no complaints Past Medical History Medical History: coronary artery disease, diabetes, hypertension, renal disease Past Surgical History Past Surgical Hx: coronary bypass surgery, other (HD accesss surgery ) Family History Significant Family History: no pertinent family hx Social History Alcohol Use: none Smoking Status: Former smoker Drug Use: none Exam/Review of Systems Vital Signs Vitals Vital Signs Date Time Temp Pulse Resp B/P Pulse Ox O2 Delivery O2 Flow Rate FiO2 03/30/17 18:45 78 17 144/74 99 03/30/17 18:30 BIPAP 03/30/17 17:50 98.3 03/30/17 17:32 40 03/30/17 15:51 7.5 Exam Constitutional: alert Head: normocephalic Eyes: nl conjunctiva Neck: non-tender, supple Respiratory: congested cough, crackles/rales, diminished breath sounds, other ( decreased BS on Right Upper and Middle lung ) Cardiovascular: regular rate and rhythm Gastrointestinal: non-tender, soft Musculoskeletal: muscle weakness, other (1-2+ edema ), range of motion Neurological: CASING COOKER II-XII intact, nl mental status, nl speech, nl strength Results Result Diagram: 03/30/17 1325 03/30/17 1325 Results 24 hrs Laboratory Tests Test 03/30/17 13:25 03/30/17 14:05 03/30/17 16:05 03/30/17 16:25 White Blood Count 9.9 # Red Blood Count 4.61 #L Hemoglobin 11.6 #L Hematocrit 38.0 #L Mean Corpuscular Volume 82.4 Mean Corpuscular Hemoglobin 25.2 L Mean Corpuscular Hemoglobin Concent 30.5 L Red Cell Distribution Width 14.6 H Platelet Count 293 Mean Platelet Volume 10.4 Neutrophils % 70.8 Lymphocytes % 19.8 Monocytes % 8.2 Eosinophils % 0.5 Basophils % 0.4 Nucleated Red Blood Cells % 0.0 Neutrophils # 7.0 Lymphocytes # 2.0 Monocytes # 0.8 Eosinophils # 0.1 Basophils # 0.0 Nucleated Red Blood Cells # 0.0 Sodium Level 139 Potassium Level 5.3 H Chloride Level 91 L Carbon Dioxide Level 35 H Anion Gap 18 H Blood Urea Nitrogen 63 H Creatinine 7.46 H Glucose Level 197 Hemoglobin A1c 6.9 H Calcium Level 9.3 Troponin I 0.022 Prothrombin Time 14.3 H Prothrombin Time Ratio 1.1 INR International Normalized Ratio 1.11 Activated Partial Thromboplast Time 32.5 Lactic Acid Level 1.3 1.7 Body Fluid Type PLEURAL Body Fluid Volume 200.0 Body Fluid Color ORANGE Body Fluid Appearance CLOUDY Body Fluid WBC 160 Body Fluid RBC (Auto) 15537 Body Fluid Polynuclear WBCs (%) 60.0 Body Fluid Mononuclear Cells % Auto 40.0 Body Fluid Glucose 107 Body Fluid Total Protein 4.5 Body Fluid Lactate Dehydrogenase 5764 Albumin 2.2 L Test 03/30/17 18:49 Lactic Acid Level 1.2 Creatine Kinase 30 Creatine Kinase Index Pending Creatinine Kinase MB (Mass) Pending Troponin I Pending Medications Medications Current Medications Apixaban (Eliquis) 2.5 mg BID PO ; Start 03/31/17 at 09:00 Atorvastatin Calcium (Lipitor) 80 mg QHS PO ; Start 03/30/17 at 21:00 Bisacodyl (Dulcolax Supp) 10 mg Q24H PRN MD CONSTIPATION; Start 03/30/17 at 14 :30 Clopidogrel Bisulfate (plaVIX) 75 mg DAILY PO ; Start 03/31/17 at 09:00 Insulin Glargine (Lantus) 10 unit QHS SC ; Start 03/30/17 at 21:00 Lisinopril (Zestril) 2.5 mg BID PO ; Start 03/30/17 at 21:00 Metoprolol Tartrate (Lopressor) 50 mg BID PO ; Start 03/30/17 at 21:00 Nifedipine (Procardia Xl) 60 mg DAILY PO ; Start 03/31/17 at 09:00 Polyethylene Glycol (Miralax) 17 gm DAILY PRN PO CONSTIPATION; Start 03/30/17 at 14:30 Ondansetron HCl (Zofran Inj) 4 mg Q6H PRN IV NAUSEA AND/OR VOMITING; Start at 15:30 Acetaminophen (Tylenol Tab) 650 mg Q6H PRN PO PAIN LEVEL 1-3 OR FEVER; Start 03/30/17 at 15:30 Docusate Sodium (Colace) 100 mg Q12H PRN PO CONSTIPATION; Start 03/30/17 at 15 :30 Diagnostic Test (Pha) (Accu-Chek) 1 ea 02 XX ; Start 03/31/17 at 02:00 Miscellaneous Information 1 ea NOTE XX ; Start 03/30/17 at 15:30 Glucose (Glutose) 15 gm Q15M PRN PO DECREASED GLUCOSE; Start 03/30/17 at 15:30 Glucose (Glutose) 22.5 gm Q15M PRN PO DECREASED GLUCOSE; Start 03/30/17 at 15: 30 Dextrose (D50w Syringe) 25 ml Q15M PRN IV DECREASED GLUCOSE; Start 03/30/17 at 15:30 Dextrose (D50w Syringe) 50 ml Q15M PRN IV DECREASED GLUCOSE; Start 03/30/17 at 15:30 Glucagon (Glucagen) 1 mg Q15M PRN IM DECREASED GLUCOSE; Start 03/30/17 at 15: 30 Glucose (Glutose) 15 gm Q15M PRN BUCCAL DECREASED GLUCOSE; Start 03/30/17 at 15:30 Pantoprazole (Protonix Iv) 40 mg DAILY@06 IV ; Start 03/31/17 at 06:00 Guaifenesin/ Codeine Phosphate (Robitussin Ac Liquid Cup) 5 ml Q4H PRN PO cough ; Start 03/30/17 at 19:30 RAYNE FITCH MD Mar 30, 2017 19:41
[2017-03-30] MEDS ORDERED: SOD CHLORIDE 0.9% 100 ML ONE (19:52)
[2017-03-30] MEDS ORDERED: IOHEXOL 300MG/ML 150 ML BTL ONE (19:52)
[2017-03-30 19:59] LABS: TOTAL PROTEIN 6.7 g/dl (6.1-8.1)
--- NOTE | 2017-03-30 20:38 | RADRPT ---
PROCEDURE: CT Chest with contrast. CLINICAL INDICATION: Shortness of breath, pleural effusion. TECHNIQUE: A CT scan of the chest with contrast was performed. Coronal and sagittal reformatted im ages were obtained from the axial source images. 90 cc Omnipaque 300 were administered during examin ation without complication. DICOM images are available. CTDIvol: 15.66 mGy. DLP: 696.82 mGy-cm. One or more of the following dose reduction techniques were used: - Automated exposure control. - Adjustment of the mA and/or kV according to patient size. - Use of iterative reconstruction technique. COMPARISON: Chest x-ray dated 03/30/2017. FINDINGS: There is no suspicious thyroid lesion. No thoracic lymphadenopathy is seen. The heart is not enlarg ed. There is no pericardial effusion. There is a right chest cardiac pacemaker. The main pulmonary artery is mildly enlarged (3.3 cm). There is a very large right pleural effusion with complete right lung atelectasis. There are mild at electatic changes in the left lower lobe. The trachea and bronchi appear patent. There is no pneumo thorax The kidneys are atrophic. There are multiple bilateral renal cysts measuring up to 2.4 cm on the lef t. Some cysts in both kidneys contain complex internal density. There is no suspicious osseous lesion. IMPRESSION: 1. Very large right pleural effusion with complete right lung atelectasis, nonspecific. The right-s ided bronchi appear patent. This could be further evaluated with diagnostic thoracentesis, as clini dheeraj warranted. 2. No thoracic lymphadenopathy. 3. Mildly enlarged main pulmonary artery, raising the possibility of pulmonary hypertension. 4. Atrophic kidneys. 5. Multiple bilateral renal cysts measure up to 2.4 cm on the left. Some cysts in both kidneys cont ain complex internal density, nonspecific. Further evaluation with ultrasound or contrast enhanced M RI is recommended. RPTAT: HTAR .Abebe Nesbitt MD, Date Time Electronically viewed and signed by .Abebe Nesbitt MD, on 03/30/2017 20:37 .R/
[2017-03-30] MEDS: ATORVASTATIN 80 MG TAB PO SCH (20:59)
[2017-03-30] MEDS: INSULIN GLARGINE [LANtus] 3 ML PEN SC SCH (21:00)
[2017-03-30] MEDS: INSULIN ASPART [NOVOLOG] 3 ML PEN SC SCH (21:00)
[2017-03-30] MEDS: METOPROLOL 50 MG TAB PO SCH (21:00)
[2017-03-30] MEDS: LISINOPRIL 5 MG TAB PO SCH (21:00)
[2017-03-30] MEDS ORDERED: LIDOCAINE 4% CR TOP PRN (21:00)
[2017-03-30] MEDS ORDERED: INSULIN GLARGINE [LANtus] 3 ML PEN SC ONE (21:15)
[2017-03-30] MEDS: FUROSEMIDE 40 MG INJ IV SCH (23:14)
[2017-03-31] VITALS (89 sets, daily range): BP systolic 62–179; BP diastolic 38–118; PULSE 76–97; RESP 15–29
[2017-03-31 01:44] LABS: CK-MB 1.06 ng/ml (0.0-2.4); TROPONIN-I 0.03 ng/ml (0.00-0.12)
[2017-03-31] MEDS: ACCU-CHEK XX SCH (02:00)
[2017-03-31 05:21] LABS: BASOPHILS % 0.2 % (0.0-2.0); HEMATOCRIT 34.7 % (42.0-52.0); HEMOGLOBIN 10.6 g/dl (14.0-18.0); LYMPHOCYTES % 11.3 % (15.0-51.0); MEAN CORPUSCULAR HEMOGLOBIN 25.4 pg (29.0-33.0); MEAN CORPUSCULAR HGB CONC 30.5 g/dl (32.0-37.0); MEAN PLATELET VOLUME 10.7 fl (7.4-10.4); MONOCYTE # 0.6 10^3/ul (0.3-0.9); MONOCYTES % 6.8 % (0.0-11.0); NEUTROPHIL # 6.9 10^3/ul (1.6-7.5); NEUTROPHILS % 81.3 % (39.0-77.0); PLATELET COUNT 273 10^3/UL (140-415); RED BLOOD COUNT 4.18 10^6/ul (4.70-6.10); RED CELL DISTRIBUTION WIDTH 14.2 % (11.5-14.5); WHITE BLOOD COUNT 8.5 10^3/ul (4.8-10.8)
[2017-03-31] MEDS ORDERED: PANTOPRAZOLE 40 MG INJ IV SCH (06:00)
[2017-03-31 06:01] LABS: ALBUMIN 3.2 g/dl (3.3-4.9); CALCIUM 8.7 mg/dl (8.4-10.2); CREATININE 5.89 mg/dl (0.61-1.24); MAGNESIUM 2.2 mg/dl (1.7-2.5); PHOSPHORUS 6.7 mg/dl (2.5-4.9); POTASSIUM 4.3 mmol/L (3.5-5.1)
[2017-03-31] MEDS: FUROSEMIDE 40 MG INJ IV SCH ×2 (06:38→18:08)
[2017-03-31] MEDS: SEVELAMER CARBONATE 0.8 GM PKT PO SCH ×3 (08:14→18:08)
[2017-03-31] MEDS: INSULIN ASPART [NOVOLOG] 3 ML PEN SC SCH ×4 (08:17→21:43)
[2017-03-31] MEDS: APIXABAN 5 MG TABLET PO SCH ×2 (09:28→21:29)
[2017-03-31] MEDS: CLOPIDOGREL 75 MG TAB PO SCH (09:28)
[2017-03-31] MEDS: METOPROLOL 50 MG TAB PO SCH ×2 (09:28→21:30)
[2017-03-31] MEDS: NIFEdipine (XL) 60 MG TAB PO SCH (09:29)
[2017-03-31] MEDS: LISINOPRIL 5 MG TAB PO SCH ×2 (09:29→21:29)
--- NOTE | 2017-03-31 11:45 | CONS ---
DATE OF ADMISSION: 03/30/2017 DATE OF CONSULTATION: 03/31/2017 PULMONARY CONSULTATION REASON FOR CONSULTATION: Respiratory distress. HISTORY OF PRESENT ILLNESS: This is a pleasant 71-year-old gentleman with end-stage renal failure o n hemodialysis, presents with a several-day history of increasing shortness of breath, orthopnea, PN D, found on admission to have complete opacification of right lung. CT chest confirmed extensive la rge right pleural effusion. Ultrasound examination demonstrated multiple loculations. Patient subs equently was only able to drain 250 mL. PAST MEDICAL HISTORY: 1. Essential hypertension. 2. End-stage renal failure on hemodialysis. 3. History of coronary artery bypass graft surgery. MEDICATIONS: Per chart. ALLERGIES: NONE. SOCIAL HISTORY: Ex-smoker, no alcohol, no history of drug use. FAMILY HISTORY: Noncontributory. SYSTEMS REVIEW: A 12-point review of systems was negative other than that stated. PHYSICAL EXAMINATION: GENERAL: Elderly-appearing gentleman, comfortable at rest, no acute distress. VITAL SIGNS: Currently afebrile, pulse is 94, blood pressure 170/70, O2 saturation 96% on nasal can nula. NECK: Supple, no JVD or lymphadenopathy. CARDIAC: S1, S2, no added sounds or murmurs. CHEST: Diminished air entry, right lung. ABDOMEN: Soft, nontender. No guarding or rebound. EXTREMITIES: No cyanosis, clubbing, edema. NEUROLOGIC: Generalized weakness, but no focal deficits. LABORATORY DATA: White count 8.5, hemoglobin 10.6, platelets 237. BUN 41, creatinine 5.89. INR 1. 1 and initial pleural fluid studies show an exudative effusion with a total protein of 4.5, LDH 5764 . IMPRESSION AND PLAN: 1. Loculated pleural effusion, possibly post-infectious. 2. Hypoxemic respiratory failure. 3. End-stage renal failure on hemodialysis. 4. History of coronary artery disease. The patient will require: 1. Thoracic surgery evaluation for decortication and pleurodesis. 2. Continue hemodialysis. 3. Supplemental O2. 4. Pleural fluid cytology studies. Dictated By: KI WHITAKER MD SV/NTS Conf#: [id number] DID#: [id number] CC: Tammy Gonzalez;*EndCC*
[2017-03-31] MEDS ORDERED: NITROGLYCERIN 50 MG/D5W (PMX) 250 ML IV SCH (14:30)
--- NOTE | 2017-03-31 15:26 | PN ---
Date/Time of Note Date/Time of Note DATE: 03/31/17 TIME: 15:19 Assessment/Plan VTE Prophylaxis VTE Prophylaxis Intervention: SCD's Lines/Catheters IV Catheter Type (from Nrs): Mid Line Urinary Cath still in place: No Assessment/Plan Assessment/Plan 1. Acute hypoxic respiratory failure secondary to pleural effusion in right lung - improving - Patient off BIPAP and doing well on NC. Feeling better after thoracentesis yesterday was performed - CT scan chest shows large right pleural effusion but appeared to have multiple loculated pockets on US - CT surgery consult placed and appreciated recommendations - Pulmonology consultation appreciated - Bronchodilators as needed 2. Large Right pleural effusion s/p thoracentesis 03/30 - 250 cc of fluid was removed but CXR still showed complete white out of right lung. CT scan shows persistent large right pleural effusion - Pulm on board and consultation appreciated 3. Acute on chronic CHF - Last ECHO 10/2016 showed EF 65% with stage 1 diastolic dysfunction - on IV Lasix - Monitor I/O and daily weights - CXR shows cardiomegaly - Cardiology consultation appreciated 4. ESRD on HD - patient on / scheduled - Nephrology consultation appreciated and received HD yesterday and today 5. Hypertensive urgency - continues on Cardene drip for control of BP - Will resume home medications 6. DM, type 2 - Continue home insulin regime - ISS and accuchecks - Will adjust as needed - A1c 6.9 7. Heart block/bradycardia with PPM - cardiology on board 8. CAD s/p stent 10/2016 - continue on home medications - Continue on Plavix until determine whether will need surgery given recent stenting 9. Atrial fibrillation - on Eliquis and BB - rate controlled 10. Disposition - Continue monitoring patient in ICU setting >35 minutes of critical care time was spent with patient and family at bedside. Subjective 24 Hr Interval Summary Free Text/Dictation Patient doing well and tolerating nasal canula. No acute overnight issues and patient has no new complaints. Exam/Review of Systems Vital Signs Vitals Vital Signs Date Time Temp Pulse Resp B/P Pulse Ox O2 Delivery O2 Flow Rate FiO2 03/31/17 14:45 87 27 175/82 100 03/31/17 14:00 Nasal Cannula 4.0 03/31/17 12:00 98.1 03/30/17 19:35 40 Intake and Output 11/03/30/17 03/31/17 14:59 22:59 06:59 Intake Total 556.9 ml 108.7 ml Output Total 3500 ml Balance -2943.1 ml 108.7 ml Exam General: Patient is laying in bed and answers questions appropriately, no acute respiratory distress on NC Mentation: Patient is alert and oriented 4, Head: Normocephalic atraumatic Neck: Supple, nontender, midline Respiratory: diminished breath sounds on right, crackles left Cardiovascular: regular rate and rhythm, no obvious murmurs. +1 LE edema b/l Gastrointestinal: non-tender to palpation, bowel sounds heard. non distended. no rebound or guarding Neurological: Moves all extremities spontaneously Skin: no rashes, ecchymosis Results Result Diagram: 03/31/175 03/31/17424 Results 24 hrs Laboratory Tests Test 03/30/17 16:05 03/30/17 16:25 03/30/17 18:49 03/30/17 20:54 Lactic Acid Level 1.7 1.2 Body Fluid Type PLEURAL Body Fluid Volume 200.0 Body Fluid Color ORANGE Body Fluid Appearance CLOUDY Body Fluid WBC 160 Body Fluid RBC (Auto) 46679 Body Fluid Polynuclear WBCs (%) 60.0 Body Fluid Mononuclear Cells % Auto 40.0 Body Fluid Glucose 107 Body Fluid Total Protein 4.5 Body Fluid Lactate Dehydrogenase 5764 Albumin 2.2 L Lactate Dehydrogenase 378 Creatine Kinase 30 Creatine Kinase Index 3.5 Creatinine Kinase MB (Mass) 1.04 Troponin I 0.028 Total Protein 6.7 Bedside Glucose 144 Test 03/30/17 23:02 03/31/17 01:01 03/31/17 04:25 03/31/17 08:07 Bedside Glucose 149 166 Creatine Kinase 43 Creatine Kinase Index 2.5 Creatinine Kinase MB (Mass) 1.06 Troponin I 0.030 White Blood Count 8.5 Red Blood Count 4.18 L Hemoglobin 10.6 L Hematocrit 34.7 L Mean Corpuscular Volume 83.0 Mean Corpuscular Hemoglobin 25.4 L Mean Corpuscular Hemoglobin Concent 30.5 L Red Cell Distribution Width 14.2 Platelet Count 273 Mean Platelet Volume 10.7 H Neutrophils % 81.3 H Lymphocytes % 11.3 L Monocytes % 6.8 Eosinophils % 0.0 Basophils % 0.2 Nucleated Red Blood Cells % 0.0 Neutrophils # 6.9 Lymphocytes # 1.0 Monocytes # 0.6 Eosinophils # 0.0 Basophils # 0.0 Nucleated Red Blood Cells # 0.0 Sodium Level 144 Potassium Level 4.3 Chloride Level 99 Carbon Dioxide Level 30 Anion Gap 19 H Blood Urea Nitrogen 41 #H Creatinine 5.89 H Glucose Level 195 Calcium Level 8.7 Phosphorus Level 6.7 H Magnesium Level 2.2 Albumin 3.2 #L Test 03/31/17 12:29 Bedside Glucose 180 Medications Medications Current Medications Apixaban (Eliquis) 2.5 mg BID PO Last administered on 03/31/17 09:28; Admin Dose 2.5 MG; Start 03/31/17 at 09:00 Atorvastatin Calcium (Lipitor) 80 mg QHS PO ; Start 03/30/17 at 21:00 Bisacodyl (Dulcolax Supp) 10 mg Q24H PRN [place] CONSTIPATION; Start 03/30/17 at 14 :30 Clopidogrel Bisulfate (plaVIX) 75 mg DAILY PO Last administered on 03/31/17 09:28; Admin Dose 75 MG; Start 03/31/17 at 09:00 Insulin Glargine (Lantus) 10 unit QHS SC ; Start 03/30/17 at 21:00 Lisinopril (Zestril) 2.5 mg BID PO Last administered on 03/31/17 09:29; Admin Dose 2.5 MG; Start 03/30/17 at 21:00 Metoprolol Tartrate (Lopressor) 50 mg BID PO Last administered on 03/31/17 09 :28; Admin Dose 50 MG; Start 03/30/17 at 21:00 Nifedipine (Procardia Xl) 60 mg DAILY PO Last administered on 03/31/17 09:29 ; Admin Dose 60 MG; Start 03/31/17 at 09:00 Polyethylene Glycol (Miralax) 17 gm DAILY PRN PO CONSTIPATION; Start 03/30/17 at 14:30 Ondansetron HCl (Zofran Inj) 4 mg Q6H PRN IV NAUSEA AND/OR VOMITING; Start at 15:30 Acetaminophen (Tylenol Tab) 650 mg Q6H PRN PO PAIN LEVEL 1-3 OR FEVER; Start 03/30/17 at 15:30 Docusate Sodium (Colace) 100 mg Q12H PRN PO CONSTIPATION; Start 03/30/17 at 15 :30 Diagnostic Test (Pha) (Accu-Chek) 1 ea 02 XX ; Start 03/31/17 at 02:00 Miscellaneous Information 1 ea NOTE XX ; Start 03/30/17 at 15:30 Glucose (Glutose) 15 gm Q15M PRN PO DECREASED GLUCOSE; Start 03/30/17 at 15:30 Glucose (Glutose) 22.5 gm Q15M PRN PO DECREASED GLUCOSE; Start 03/30/17 at 15: 30 Dextrose (D50w Syringe) 25 ml Q15M PRN IV DECREASED GLUCOSE; Start 03/30/17 at 15:30 Dextrose (D50w Syringe) 50 ml Q15M PRN IV DECREASED GLUCOSE; Start 03/30/17 at 15:30 Glucagon (Glucagen) 1 mg Q15M PRN IM DECREASED GLUCOSE; Start 03/30/17 at 15: 30 Glucose (Glutose) 15 gm Q15M PRN BUCCAL DECREASED GLUCOSE; Start 03/30/17 at 15:30 Guaifenesin/ Codeine Phosphate (Robitussin Ac Liquid Cup) 5 ml Q4H PRN PO cough ; Start 03/30/17 at 19:30 Lidocaine (Lmx 4% Plus) 1 applic PRN PRN TOP Prior to HD cannulation Last administered on 03/31/17 11:23; Admin Dose 1 APPLIC; Start 03/30/17 at 21:00 Pantoprazole 40 mg 40 mg DAILY@06 PO ; Start 04/01/17 at 06:00 Nitroglycerin/ Dextrose (Nitroglycerin 50 Mg/D5W (Pmx)) 250 ml @ 1.5 mls/hr TITRATE IV Last administered on 03/31/17 15:07; Admin Dose 3 MLS/HR; Start 03/31/17 at 14:30 JAE RAHMAN MD Mar 31, 2017 15:26
--- NOTE | 2017-03-31 16:10 | CONS ---
Date/Time of Note Date/Time of Note DATE: 03/31/17 TIME: 16:08 Assessment/Plan Assessment/Plan Additional Assessment/Plan 1. Acute hypoxic resp failure due to acute fluid overload and Pleural effusion 2. ESRD on HD 3. Right hemithorax multiple loculated right pleural effusion s/p Thoracentesis 250 cc drained- pt has multiple pockets of loculated effusion 4. h/o CAD s/p CABG 5/ H/o recent UT and s/p stenting by 6/ HTN 7/ HL Plan: s/p Thoracentesis 250 cc drained, pt has multiple loculations on right lung- consider CT surgery consultation for Evaluatioin for pig tail vs chest tube vs VATS plan is to do HD today- will keep him on , , thursday schedule( his original HD schedule) Cardiology and pulmonary has been consulted on case, pt is on BIPAP- Mx as per pulmonary will follow up Consultation Date/Type/Reason Admit Date/Time Mar 30, 2017 at 15:04 Initial Consult Date 03/30/17 Type of Consultation: NEPHROLOGY 24 HR Interval Summary Free Text/Dictation c/o SOB and cough, S/p HD yesterday, will plan for HD today Exam/Review of Systems Vital Signs Vitals Vital Signs Date Time Temp Pulse Resp B/P Pulse Ox O2 Delivery O2 Flow Rate FiO2 03/31/17 14:45 87 27 175/82 100 03/31/17 14:00 Nasal Cannula 4.0 03/31/17 12:00 98.1 03/30/17 19:35 40 Intake and Output 03/30/17 03/30/17 03/31/17 14:59 22:59 06:59 Intake Total 556.9 ml 108.7 ml Output Total 3500 ml Balance -2943.1 ml 108.7 ml Exam Constitutional: alert Head: normocephalic Eyes: nl conjunctiva Neck: non-tender, supple Respiratory: congested cough, crackles/rales, diminished breath sounds, other ( decreased BS on Right Upper and Middle lung ) Cardiovascular: regular rate and rhythm Gastrointestinal: non-tender, soft Musculoskeletal: muscle weakness, other (1-2+ edema ), range of motion Neurological: DIRECTOR HARDWARE II-XII intact, nl mental status, nl speech, nl strength Results Result Diagram: 03/31/1742403/31/17424 Results 24 hrs Laboratory Tests Test 03/30/17 16:25 03/30/17 18:49 03/30/17 20:54 03/30/17 23:02 Body Fluid Type PLEURAL Body Fluid Volume 200.0 Body Fluid Color ORANGE Body Fluid Appearance CLOUDY Body Fluid WBC 160 Body Fluid RBC (Auto) 68230 Body Fluid Polynuclear WBCs (%) 60.0 Body Fluid Mononuclear Cells % Auto 40.0 Body Fluid Glucose 107 Body Fluid Total Protein 4.5 Body Fluid Lactate Dehydrogenase 5764 Albumin 2.2 L Lactic Acid Level 1.2 Lactate Dehydrogenase 378 Creatine Kinase 30 Creatine Kinase Index 3.5 Creatinine Kinase MB (Mass) 1.04 Troponin I 0.028 Total Protein 6.7 Bedside Glucose 144 149 Test 03/31/17 01:01 03/31/17 04:25 03/31/17 08:07 03/31/17 12:29 Creatine Kinase 43 Creatine Kinase Index 2.5 Creatinine Kinase MB (Mass) 1.06 Troponin I 0.030 White Blood Count 8.5 Red Blood Count 4.18 L Hemoglobin 10.6 L Hematocrit 34.7 L Mean Corpuscular Volume 83.0 Mean Corpuscular Hemoglobin 25.4 L Mean Corpuscular Hemoglobin Concent 30.5 L Red Cell Distribution Width 14.2 Platelet Count 273 Mean Platelet Volume 10.7 H Neutrophils % 81.3 H Lymphocytes % 11.3 L Monocytes % 6.8 Eosinophils % 0.0 Basophils % 0.2 Nucleated Red Blood Cells % 0.0 Neutrophils # 6.9 Lymphocytes # 1.0 Monocytes # 0.6 Eosinophils # 0.0 Basophils # 0.0 Nucleated Red Blood Cells # 0.0 Sodium Level 144 Potassium Level 4.3 Chloride Level 99 Carbon Dioxide Level 30 Anion Gap 19 H Blood Urea Nitrogen 41 #H Creatinine 5.89 H Glucose Level 195 Calcium Level 8.7 Phosphorus Level 6.7 H Magnesium Level 2.2 Albumin 3.2 #L Bedside Glucose 166 180 Medications Medications Current Medications Apixaban (Eliquis) 2.5 mg BID PO Last administered on 03/31/17t 09:28; Admin Dose 2.5 MG; Start 03/31/17 at 09:00 Atorvastatin Calcium (Lipitor) 80 mg QHS PO ; Start 03/30/17 at 21:00 Bisacodyl (Dulcolax Supp) 10 mg Q24H PRN [place] CONSTIPATION; Start 03/30/17 at 14 :30 Clopidogrel Bisulfate (plaVIX) 75 mg DAILY PO Last administered on 03/31/17 09:28; Admin Dose 75 MG; Start 03/31/17 at 09:00 Insulin Glargine (Lantus) 10 unit QHS SC ; Start 03/30/17 at 21:00 Lisinopril (Zestril) 2.5 mg BID PO Last administered on 03/31/17 09:29; Admin Dose 2.5 MG; Start 03/30/17 at 21:00 Metoprolol Tartrate (Lopressor) 50 mg BID PO Last administered on 03/31/17 09 :28; Admin Dose 50 MG; Start 03/30/17 at 21:00 Nifedipine (Procardia Xl) 60 mg DAILY PO Last administered on 03/31/17 09:29 ; Admin Dose 60 MG; Start 03/31/17 at 09:00 Polyethylene Glycol (Miralax) 17 gm DAILY PRN PO CONSTIPATION; Start 03/30/17 at 14:30 Ondansetron HCl (Zofran Inj) 4 mg Q6H PRN IV NAUSEA AND/OR VOMITING; Start at 15:30 Acetaminophen (Tylenol Tab) 650 mg Q6H PRN PO PAIN LEVEL 1-3 OR FEVER; Start 03/30/17 at 15:30 Docusate Sodium (Colace) 100 mg Q12H PRN PO CONSTIPATION; Start 03/30/17 at 15 :30 Diagnostic Test (Pha) (Accu-Chek) 1 ea 02 XX ; Start 03/31/17 at 02:00 Miscellaneous Information 1 ea NOTE XX ; Start 03/30/17 at 15:30 Glucose (Glutose) 15 gm Q15M PRN PO DECREASED GLUCOSE; Start 03/30/17 at 15:30 Glucose (Glutose) 22.5 gm Q15M PRN PO DECREASED GLUCOSE; Start 03/30/17 at 15: 30 Dextrose (D50w Syringe) 25 ml Q15M PRN IV DECREASED GLUCOSE; Start 03/30/17 at 15:30 Dextrose (D50w Syringe) 50 ml Q15M PRN IV DECREASED GLUCOSE; Start 03/30/17 at 15:30 Glucagon (Glucagen) 1 mg Q15M PRN IM DECREASED GLUCOSE; Start 03/30/17 at 15: 30 Glucose (Glutose) 15 gm Q15M PRN BUCCAL DECREASED GLUCOSE; Start 03/30/17 at 15:30 Guaifenesin/ Codeine Phosphate (Robitussin Ac Liquid Cup) 5 ml Q4H PRN PO cough ; Start 03/30/17 at 19:30 Lidocaine (Lmx 4% Plus) 1 applic PRN PRN TOP Prior to HD cannulation Last administered on 03/31/17 11:23; Admin Dose 1 APPLIC; Start 03/30/17 at 21:00 Pantoprazole 40 mg 40 mg DAILY@06 PO ; Start 04/01/17 at 06:00 Nitroglycerin/ Dextrose (Nitroglycerin 50 Mg/D5W (Pmx)) 250 ml @ 1.5 mls/hr TITRATE IV Last administered on 03/31/17 15:07; Admin Dose 3 MLS/HR; Start 03/31/17 at 14:30 RAYNE FITCH MD Mar 31, 2017 16:10
--- NOTE | 2017-03-31 21:02 | CONS ---
DATE OF ADMISSION: 03/30/2017 DATE OF CONSULTATION: REASON FOR CONSULTATION: Evaluation for pleural effusion. HISTORY OF PRESENT ILLNESS: This is a 71-year-old male who was admitted with respiratory failure. Currently, the patient is on dialysis and was found to be short of breath. Underwent a CT exam of t he chest which showed very large right-sided pleural effusion with complete right-sided atelectasis. The patient underwent a thoracentesis. Minimal fluid was aspirated. I have personally looked at the CAT scan. The patient does have a large effusion on the right side with loculations and complet e atelectasis of the right lung. PAST MEDICAL HISTORY: Significant for end-stage renal disease, respiratory failure, hypertension, h yperlipidemia. PAST SURGICAL HISTORY: Coronary artery bypass grafting. ALLERGIES: NONE. SOCIAL HISTORY: No smoking, drinking or drug use. MEDICATION LIST: Reviewed which includes: 1. Protonix. 2. Plavix. 3. Nitroglycerin. 4. Insulin. 5. Lisinopril. 6. Lasix. REVIEW OF SYSTEMS: As per HPI. PHYSICAL EXAMINATION: VITAL SIGNS: Blood pressure is 115/57, pulse is 91, respirations 20. CARDIOVASCULAR: Normal S1, S2. LUNGS: Clear on the left. Diminished breath sounds on the right. ABDOMEN: Soft. EXTREMITIES: Warm. LABORATORY VALUES: Hemoglobin 10.5, white count 8.5, platelet count 273. Normal coagulation factor s. IMPRESSION: Right-sided pleural effusion which appears to be loculated. RECOMMENDATIONS: This patient would benefit from video-assisted thoracic surgery and decortication. Considering the patient's cardiac history, this needs to be done after cardiology clearance. Disc ussed with the family. Will discuss with the referring physicians. Dictated By: SHAYLA YAÑEZ MD FM/NTS Conf#: [id number] DID#: [id number] CC: Tammy Gonzalez;*End*
--- NOTE | 2017-03-31 21:13 | CONS ---
Date/Time of Note Date/Time of Note DATE: 03/31/17 TIME: 21:09 Consult Date/Type/Reason Admit Date/Time Mar 30, 2017 at 15:04 Initial Consult Date 03/30/17 Type of Consultation: Cardiology Objective Vital Signs Date Time Temp Pulse Resp B/P Pulse Ox O2 Delivery O2 Flow Rate FiO2 03/31/17 20:00 83 03/31/17 19:15 20 115/57 90 03/31/17 19:00 Nasal Cannula 4.0 03/31/17 16:00 98.3 03/30/17 19:35 40 Intake and Output 03/30/17 03/30/17 03/31/17 15:00 23:00 07:00 Intake Total 556.9 ml 117.7 ml Output Total 3500 ml Balance -2943.1 ml 117.7 ml Results/Medications Result Diagram: 03/31/17 0425 03/31/17 0425 Results 24 hrs Laboratory Tests Test 03/30/17 23:02 03/31/17 01:01 03/31/17 04:25 03/31/17 08:07 Bedside Glucose 149 166 Creatine Kinase 43 Creatine Kinase Index 2.5 Creatinine Kinase MB (Mass) 1.06 Troponin I 0.030 White Blood Count 8.5 Red Blood Count 4.18 L Hemoglobin 10.6 L Hematocrit 34.7 L Mean Corpuscular Volume 83.0 Mean Corpuscular Hemoglobin 25.4 L Mean Corpuscular Hemoglobin Concent 30.5 L Red Cell Distribution Width 14.2 Platelet Count 273 Mean Platelet Volume 10.7 H Neutrophils % 81.3 H Lymphocytes % 11.3 L Monocytes % 6.8 Eosinophils % 0.0 Basophils % 0.2 Nucleated Red Blood Cells % 0.0 Neutrophils # 6.9 Lymphocytes # 1.0 Monocytes # 0.6 Eosinophils # 0.0 Basophils # 0.0 Nucleated Red Blood Cells # 0.0 Sodium Level 144 Potassium Level 4.3 Chloride Level 99 Carbon Dioxide Level 30 Anion Gap 19 H Blood Urea Nitrogen 41 #H Creatinine 5.89 H Glucose Level 195 Calcium Level 8.7 Phosphorus Level 6.7 H Magnesium Level 2.2 Albumin 3.2 #L Test 03/31/17 12:29 03/31/17 18:06 Bedside Glucose 180 242 H Medications Current Medications Apixaban (Eliquis) 2.5 mg BID PO Last administered on 03/31/17 09:28; Admin Dose 2.5 MG; Start 03/31/17 at 09:00 Atorvastatin Calcium (Lipitor) 80 mg QHS PO ; Start 03/30/17 at 21:00 Bisacodyl (Dulcolax Supp) 10 mg Q24H PRN [place] CONSTIPATION; Start 03/30/17 at 14 :30 Clopidogrel Bisulfate (plaVIX) 75 mg DAILY PO Last administered on 03/31/17 09:28; Admin Dose 75 MG; Start 03/31/17 at 09:00 Insulin Glargine (Lantus) 10 unit QHS SC ; Start 03/30/17 at 21:00 Lisinopril (Zestril) 2.5 mg BID PO Last administered on 03/31/17 09:29; Admin Dose 2.5 MG; Start 03/30/17 at 21:00 Metoprolol Tartrate (Lopressor) 50 mg BID PO Last administered on 03/31/17 09 :28; Admin Dose 50 MG; Start 03/30/17 at 21:00 Nifedipine (Procardia Xl) 60 mg DAILY PO Last administered on 03/31/17 09:29 ; Admin Dose 60 MG; Start 03/31/17 at 09:00 Polyethylene Glycol (Miralax) 17 gm DAILY PRN PO CONSTIPATION; Start 03/30/17 at 14:30 Ondansetron HCl (Zofran Inj) 4 mg Q6H PRN IV NAUSEA AND/OR VOMITING; Start at 15:30 Acetaminophen (Tylenol Tab) 650 mg Q6H PRN PO PAIN LEVEL 1-3 OR FEVER; Start 03/30/17 at 15:30 Docusate Sodium (Colace) 100 mg Q12H PRN PO CONSTIPATION; Start 03/30/17 at 15 :30 Diagnostic Test (Pha) (Accu-Chek) 1 ea 02 XX ; Start 03/31/17 at 02:00 Miscellaneous Information 1 ea NOTE XX ; Start 03/30/17 at 15:30 Glucose (Glutose) 15 gm Q15M PRN PO DECREASED GLUCOSE; Start 03/30/17 at 15:30 Glucose (Glutose) 22.5 gm Q15M PRN PO DECREASED GLUCOSE; Start 03/30/17 at 15: 30 Dextrose (D50w Syringe) 25 ml Q15M PRN IV DECREASED GLUCOSE; Start 03/30/17 at 15:30 Dextrose (D50w Syringe) 50 ml Q15M PRN IV DECREASED GLUCOSE; Start 03/30/17 at 15:30 Glucagon (Glucagen) 1 mg Q15M PRN IM DECREASED GLUCOSE; Start 03/30/17 at 15: 30 Glucose (Glutose) 15 gm Q15M PRN BUCCAL DECREASED GLUCOSE; Start 03/30/17 at 15:30 Guaifenesin/ Codeine Phosphate (Robitussin Ac Liquid Cup) 5 ml Q4H PRN PO cough ; Start 03/30/17 at 19:30 Lidocaine (Lmx 4% Plus) 1 applic PRN PRN TOP Prior to HD cannulation Last administered on 03/31/17 11:23; Admin Dose 1 APPLIC; Start 03/30/17 at 21:00 Pantoprazole 40 mg 40 mg DAILY@06 PO ; Start 04/01/17 at 06:00 Nitroglycerin/ Dextrose (Nitroglycerin 50 Mg/D5W (Pmx)) 250 ml @ 1.5 mls/hr TITRATE IV Last administered on 03/31/17 15:07; Admin Dose 3 MLS/HR; Start 03/31/17 at 14:30 Assessment/Plan Chief Complaint/Hosp Course Patient is know to me form out pt with history of IL with PCI of RCA, SSS s/p st dem[facility] PPM implantation, HTN, ESRD on HD, Severe PAD and Venous disease, HLD who presented to ER with Severe SOB, found to have white out of his right lung, likely PNA, s/p thoracocentesis with 250cc fluid only. No WBC, NO fever, Less likely this is Infection at this extent, I would get Contrast CT with [place]. Problems: (1) Acute respiratory failure (2) Pleural effusion (3) Hypertensive emergency (4) End stage renal disease on dialysis (5) Anemia due to end stage renal disease (6) Complete heart block (7) Diabetes mellitus type 2 in nonobese (8) Hypertension (9) Hyperlipidemia Additional Assessment/Plan Loculated right effusion. 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 Continue medical management. HUNTER BASSETT MD Mar 31, 2017 21:13
[2017-03-31] MEDS: ATORVASTATIN 80 MG TAB PO SCH (21:29)
[2017-03-31] MEDS: INSULIN GLARGINE [LANtus] 3 ML PEN SC SCH (21:42)
[2017-04-01] VITALS (25 sets, daily range): BP systolic 87–159; BP diastolic 43–75; PULSE 70–88; RESP 14–28
[2017-04-01] MEDS: ACCU-CHEK XX SCH (03:12)
[2017-04-01] MEDS: DOCUSATE SODIUM 100 MG CAP PO PRN (03:40)
[2017-04-01 05:42] LABS: BASOPHILS % 0.4 % (0.0-2.0); EOSINOPHILS # 0.1 10^3/ul (0.0-0.5); HEMOGLOBIN 9.8 g/dl (14.0-18.0); LYMPHOCYTES % 19.3 % (15.0-51.0); MEAN CORPUSCULAR HEMOGLOBIN 25.3 pg (29.0-33.0); MEAN CORPUSCULAR HGB CONC 30.6 g/dl (32.0-37.0); MEAN CORPUSCULAR VOLUME 82.5 fl (82.0-101.0); MEAN PLATELET VOLUME 11.1 fl (7.4-10.4); MONOCYTE # 0.9 10^3/ul (0.3-0.9); MONOCYTES % 9.2 % (0.0-11.0); NEUTROPHIL # 7.1 10^3/ul (1.6-7.5); NEUTROPHILS % 69.8 % (39.0-77.0); PLATELET COUNT 270 10^3/UL (140-415); RED BLOOD COUNT 3.88 10^6/ul (4.70-6.10); RED CELL DISTRIBUTION WIDTH 14.3 % (11.5-14.5); WHITE BLOOD COUNT 10.1 10^3/ul (4.8-10.8)
[2017-04-01] MEDS: PANTOPRAZOLE (EC) 40 MG TAB PO SCH (06:06)
[2017-04-01] MEDS: FUROSEMIDE 40 MG INJ IV SCH (06:07)
[2017-04-01 06:21] LABS: ALBUMIN 3.3 g/dl (3.3-4.9); CALCIUM 8.6 mg/dl (8.4-10.2); CREATININE 5.67 mg/dl (0.61-1.24); MAGNESIUM 2.1 mg/dl (1.7-2.5); PHOSPHORUS 5.6 mg/dl (2.5-4.9); POTASSIUM 4.5 mmol/L (3.5-5.1)
--- NOTE | 2017-04-01 07:56 | RADRPT ---
PROCEDURE: Chest 1 views. CLINICAL INDICATION: Shortness of breath. TECHNIQUE: Single view of the chest was obtained. COMPARISON: DR CHEST 03/30/[address] March 30, 2017 FINDINGS: The heart is large. Left-sided dual chamber pacemaker has its leads over the heart and appears stabl e. Complete opacification of the right hemithorax is unchanged. The osseous structures appear stabl e. IMPRESSION: Cardiomegaly . Stable complete opacification of the right hemithorax, likely corresponding to complete atelectasis/ consolidation of the right lung and pleural effusion. RPTAT: AA .Juan Carlos Nelson MD, Date Time Electronically viewed and signed by .Juan Carlos Nelson MD, on 04/01/2017 07:56 .P/
[2017-04-01] MEDS: SEVELAMER CARBONATE 0.8 GM PKT PO SCH ×3 (08:06→17:29)
[2017-04-01] MEDS: INSULIN ASPART [NOVOLOG] 3 ML PEN SC SCH ×4 (08:07→20:42)
[2017-04-01] MEDS: APIXABAN 5 MG TABLET PO SCH (08:11)
[2017-04-01] MEDS: METOPROLOL 50 MG TAB PO SCH ×2 (08:12→20:32)
[2017-04-01] MEDS: CLOPIDOGREL 75 MG TAB PO SCH (08:13)
[2017-04-01] MEDS: NIFEdipine (XL) 60 MG TAB PO SCH (08:14)
--- NOTE | 2017-04-01 08:34 | CONS ---
Date/Time of Note Date/Time of Note DATE: 04/01/17 TIME: 08:30 Assessment/Plan Assessment/Plan Additional Assessment/Plan 1. Acute hypoxic resp failure due to acute fluid overload and Pleural effusion 2. ESRD on HD -TTS schedule 3. Right hemithorax multiple loculated right pleural effusion s/p Thoracentesis 250 cc drained- pt has multiple pockets of loculated effusion 4. h/o CAD s/p CABG 5/ H/o recent [place] and s/p stenting by 6/ HTN 7/ HL Plan: s/p Thoracentesis 250 cc drained, pt has multiple loculations on right lung- s/ p CT surgery evaluation, pt will benefit from VATS procedure, CT surgery asked for cardiology clearance remained in ICU< required BIPAP intermitently, S/p HD yesterday 2.3 L removed( 5.3 L removed in last 2 days HD )- will plan for HD tomorrow and keep pt on Thu , , Thursday schedule. will follow up Consultation Date/Type/Reason Admit Date/Time Mar 30, 2017 at 15:04 Initial Consult Date 03/30/17 Type of Consultation: NEPHROLOGY 24 HR Interval Summary Free Text/Dictation remained in ICU< required BIPAP intermitently, S/p HD yesterday 2.3 L removed( 5.3 L removed in last 2 days HD ) Exam/Review of Systems Vital Signs Vitals Vital Signs Date Time Temp Pulse Resp B/P Pulse Ox O2 Delivery O2 Flow Rate FiO2 04/01/17 07:30 98.3 71 16 110/56 98 Nasal Cannula 4.0 03/30/17 19:35 40 Intake and Output 03/31/17 03/31/17 04/01/17 14:59 22:59 06:59 Intake Total 1139 ml 733 ml Output Total 2800 ml 100 ml Balance -1661 ml 633 ml Exam Constitutional: alert Head: normocephalic Eyes: nl conjunctiva Neck: non-tender, supple Respiratory: congested cough, crackles/rales, diminished breath sounds, other ( decreased BS on Right Upper and Middle lung ) Cardiovascular: regular rate and rhythm Gastrointestinal: non-tender, soft Musculoskeletal: muscle weakness, other (1-2+ edema ), range of motion Neurological: WELLNESS NURSE RN II-XII intact, nl mental status, nl speech, nl strength Results Result Diagram: 04/01/17 0328 04/01/17 0328 Results 24 hrs Laboratory Tests Test 03/31/17 12:29 03/31/17 18:06 03/31/17 21:40 04/01/17 03:12 Bedside Glucose 180 242 H 258 H 196 Test 04/01/17 03:28 04/01/17 07:49 White Blood Count 10.1 Red Blood Count 3.88 L Hemoglobin 9.8 L Hematocrit 32.0 L Mean Corpuscular Volume 82.5 Mean Corpuscular Hemoglobin 25.3 L Mean Corpuscular Hemoglobin Concent 30.6 L Red Cell Distribution Width 14.3 Platelet Count 270 Mean Platelet Volume 11.1 H Neutrophils % 69.8 Lymphocytes % 19.3 Monocytes % 9.2 Eosinophils % 1.0 Basophils % 0.4 Nucleated Red Blood Cells % 0.0 Neutrophils # 7.1 Lymphocytes # 2.0 Monocytes # 0.9 Eosinophils # 0.1 Basophils # 0.0 Nucleated Red Blood Cells # 0.0 Sodium Level 138 Potassium Level 4.5 Chloride Level 93 L Carbon Dioxide Level 31 Anion Gap 19 H Blood Urea Nitrogen 48 H Creatinine 5.67 H Glucose Level 195 Calcium Level 8.6 Phosphorus Level 5.6 H Magnesium Level 2.1 Albumin 3.3 Bedside Glucose 185 Medications Medications Current Medications Apixaban (Eliquis) 2.5 mg BID PO Last administered on 04/01/17 08:11; Admin Dose 2.5 MG; Start 03/31/17 at 09:00 Atorvastatin Calcium (Lipitor) 80 mg QHS PO Last administered on 03/31/17 21: 29; Admin Dose 80 MG; Start 03/30/17 at 21:00 Bisacodyl (Dulcolax Supp) 10 mg Q24H PRN [place] CONSTIPATION; Start 03/30/17 at 14 :30 Clopidogrel Bisulfate (plaVIX) 75 mg DAILY PO Last administered on 04/01/17 08:13; Admin Dose 75 MG; Start 03/31/17 at 09:00 Insulin Glargine (Lantus) 10 unit QHS SC Last administered on 03/31/17 21:42 ; Admin Dose 10 UNIT; Start 03/30/17 at 21:00 Lisinopril (Zestril) 2.5 mg BID PO Last administered on 03/31/17 21:29; Admin Dose 2.5 MG; Start 03/30/17 at 21:00 Metoprolol Tartrate (Lopressor) 50 mg BID PO Last administered on 04/01/17 08 :12; Admin Dose 50 MG; Start 03/30/17 at 21:00 Nifedipine (Procardia Xl) 60 mg DAILY PO Last administered on 04/01/17 08:14 ; Admin Dose 60 MG; Start 03/31/17 at 09:00 Polyethylene Glycol (Miralax) 17 gm DAILY PRN PO CONSTIPATION; Start 03/30/17 at 14:30 Ondansetron HCl (Zofran Inj) 4 mg Q6H PRN IV NAUSEA AND/OR VOMITING; Start at 15:30 Acetaminophen (Tylenol Tab) 650 mg Q6H PRN PO PAIN LEVEL 1-3 OR FEVER; Start 03/30/17 at 15:30 Docusate Sodium (Colace) 100 mg Q12H PRN PO CONSTIPATION Last administered on 04/01/17 03:40; Admin Dose 100 MG; Start 03/30/17 at 15:30 Diagnostic Test (Pha) (Accu-Chek) 1 ea 02 XX Last administered on 04/01/17 03 :12; Admin Dose 1 EA; Start 03/31/17 at 02:00 Miscellaneous Information 1 ea NOTE XX ; Start 03/30/17 at 15:30 Glucose (Glutose) 15 gm Q15M PRN PO DECREASED GLUCOSE; Start 03/30/17 at 15:30 Glucose (Glutose) 22.5 gm Q15M PRN PO DECREASED GLUCOSE; Start 03/30/17 at 15: 30 Dextrose (D50w Syringe) 25 ml Q15M PRN IV DECREASED GLUCOSE; Start 03/30/17 at 15:30 Dextrose (D50w Syringe) 50 ml Q15M PRN IV DECREASED GLUCOSE; Start 03/30/17 at 15:30 Glucagon (Glucagen) 1 mg Q15M PRN IM DECREASED GLUCOSE; Start 03/30/17 at 15: 30 Glucose (Glutose) 15 gm Q15M PRN BUCCAL DECREASED GLUCOSE; Start 03/30/17 at 15:30 Guaifenesin/ Codeine Phosphate (Robitussin Ac Liquid Cup) 5 ml Q4H PRN PO cough ; Start 03/30/17 at 19:30 Lidocaine (Lmx 4% Plus) 1 applic PRN PRN TOP Prior to HD cannulation Last administered on 03/31/17 11:23; Admin Dose 1 APPLIC; Start 03/30/17 at 21:00 Pantoprazole 40 mg 40 mg DAILY@06 PO Last administered on 04/01/17 06:06; Admin Dose 40 MG; Start 04/01/17 at 06:00 Nitroglycerin/ Dextrose (Nitroglycerin 50 Mg/D5W (Pmx)) 250 ml @ 1.5 mls/hr TITRATE IV Last administered on 03/31/17 15:07; Admin Dose 3 MLS/HR; Start 03/31/17 at 14:30 RAYNE FITCH MD Apr 01, 2017 08:34
[2017-04-01] MEDS: LISINOPRIL 5 MG TAB PO SCH ×2 (08:37→20:31)
--- NOTE | 2017-04-01 11:09 | CONS ---
Date/Time of Note Date/Time of Note DATE: 04/01/17 TIME: 11:08 Consult Date/Type/Reason Admit Date/Time Mar 30, 2017 at 15:04 Initial Consult Date 03/30/17 Type of Consultation: Pulm Subjective Patient comfortable on room air no shortness of breath. Objective Vital Signs Date Time Temp Pulse Resp B/P Pulse Ox O2 Delivery O2 Flow Rate FiO2 04/01/17 10:28 97.5 72 20 119/61 98 Nasal Cannula 4.0 03/30/17 19:35 40 Intake and Output 03/31/17 03/31/17 04/01/17 15:00 23:00 07:00 Intake Total 1130 ml 733 ml Output Total 2800 ml 100 ml Balance -1670 ml 633 ml Exam GENERAL: Well-nourished well-developed gentleman comfortable at rest VITAL SIGNS: per chart NECK: Supple. No JVD or lymphadenopathy. CARDIAC EXAM: S1, S2. No added sounds or murmurs. CHEST: Decreased air entry right lung ABDOMEN: Soft, nontender. No guarding or rebound. EXTREMITIES: No cyanosis, clubbing or edema. NEUROLOGIC: Generalized weakness. No focal deficits. Results/Medications Result Diagram: 04/01/17 0328 04/01/17 0328 Results 24 hrs Laboratory Tests Test 03/31/17 12:29 03/31/17 18:06 03/31/17 21:40 04/01/17 03:12 Bedside Glucose 180 242 H 258 H 196 Test 04/01/17 03:28 04/01/17 07:49 White Blood Count 10.1 Red Blood Count 3.88 L Hemoglobin 9.8 L Hematocrit 32.0 L Mean Corpuscular Volume 82.5 Mean Corpuscular Hemoglobin 25.3 L Mean Corpuscular Hemoglobin Concent 30.6 L Red Cell Distribution Width 14.3 Platelet Count 270 Mean Platelet Volume 11.1 H Neutrophils % 69.8 Lymphocytes % 19.3 Monocytes % 9.2 Eosinophils % 1.0 Basophils % 0.4 Nucleated Red Blood Cells % 0.0 Neutrophils # 7.1 Lymphocytes # 2.0 Monocytes # 0.9 Eosinophils # 0.1 Basophils # 0.0 Nucleated Red Blood Cells # 0.0 Sodium Level 138 Potassium Level 4.5 Chloride Level 93 L Carbon Dioxide Level 31 Anion Gap 19 H Blood Urea Nitrogen 48 H Creatinine 5.67 H Glucose Level 195 Calcium Level 8.6 Phosphorus Level 5.6 H Magnesium Level 2.1 Albumin 3.3 Bedside Glucose 185 Medications Current Medications Apixaban (Eliquis) 2.5 mg BID PO Last administered on 04/01/17 08:11; Admin Dose 2.5 MG; Start 03/31/17 at 09:00 Atorvastatin Calcium (Lipitor) 80 mg QHS PO Last administered on 03/31/17 21: 29; Admin Dose 80 MG; Start 03/30/17 at 21:00 Bisacodyl (Dulcolax Supp) 10 mg Q24H PRN [place] CONSTIPATION; Start 03/30/17 at 14 :30 Insulin Glargine (Lantus) 10 unit QHS SC Last administered on 03/31/17 21:42 ; Admin Dose 10 UNIT; Start 03/30/17 at 21:00 Lisinopril (Zestril) 2.5 mg BID PO Last administered on 04/01/17 08:37; Admin Dose 2.5 MG; Start 03/30/17 at 21:00 Metoprolol Tartrate (Lopressor) 50 mg BID PO Last administered on 04/01/17 08 :12; Admin Dose 50 MG; Start 03/30/17 at 21:00 Nifedipine (Procardia Xl) 60 mg DAILY PO Last administered on 04/01/17 08:14 ; Admin Dose 60 MG; Start 03/31/17 at 09:00 Polyethylene Glycol (Miralax) 17 gm DAILY PRN PO CONSTIPATION; Start 03/30/17 at 14:30 Ondansetron HCl (Zofran Inj) 4 mg Q6H PRN IV NAUSEA AND/OR VOMITING; Start at 15:30 Acetaminophen (Tylenol Tab) 650 mg Q6H PRN PO PAIN LEVEL 1-3 OR FEVER; Start 03/30/17 at 15:30 Docusate Sodium (Colace) 100 mg Q12H PRN PO CONSTIPATION Last administered on 04/01/17 03:40; Admin Dose 100 MG; Start 03/30/17 at 15:30 Diagnostic Test (Pha) (Accu-Chek) 1 ea 02 XX Last administered on 04/01/17 03 :12; Admin Dose 1 EA; Start 03/31/17 at 02:00 Miscellaneous Information 1 ea NOTE XX ; Start 03/30/17 at 15:30 Glucose (Glutose) 15 gm Q15M PRN PO DECREASED GLUCOSE; Start 03/30/17 at 15:30 Glucose (Glutose) 22.5 gm Q15M PRN PO DECREASED GLUCOSE; Start 03/30/17 at 15: 30 Dextrose (D50w Syringe) 25 ml Q15M PRN IV DECREASED GLUCOSE; Start 03/30/17 at 15:30 Dextrose (D50w Syringe) 50 ml Q15M PRN IV DECREASED GLUCOSE; Start 03/30/17 at 15:30 Glucagon (Glucagen) 1 mg Q15M PRN IM DECREASED GLUCOSE; Start 03/30/17 at 15: 30 Glucose (Glutose) 15 gm Q15M PRN BUCCAL DECREASED GLUCOSE; Start 03/30/17 at 15:30 Guaifenesin/ Codeine Phosphate (Robitussin Ac Liquid Cup) 5 ml Q4H PRN PO cough ; Start 03/30/17 at 19:30 Lidocaine (Lmx 4% Plus) 1 applic PRN PRN TOP Prior to HD cannulation Last administered on 03/31/17 11:23; Admin Dose 1 APPLIC; Start 03/30/17 at 21:00 Pantoprazole 40 mg 40 mg DAILY@06 PO Last administered on 04/01/17 06:06; Admin Dose 40 MG; Start 04/01/17 at 06:00 Nitroglycerin/ Dextrose (Nitroglycerin 50 Mg/D5W (Pmx)) 250 ml @ 1.5 mls/hr TITRATE IV Last administered on 03/31/17 15:07; Admin Dose 3 MLS/HR; Start 03/31/17 at 14:30 Assessment/Plan Chief Complaint/Hosp Course IMPRESSION AND PLAN: 1. Loculated pleural effusion, possibly post-infectious. 2. Hypoxemic respiratory failure. 3. End-stage renal failure on hemodialysis. 4. History of coronary artery disease. The patient will require: 1. Thoracic surgery evaluation for decortication and pleurodesis. 2. Continue hemodialysis. 3. Supplemental O2. 4. Pleural fluid cytology studies. Stable for transfer to [facility]. Problems: KI WHITAKER MD, [facility] Apr 01, 2017 11:09
[2017-04-01 11:41] LABS: AADO2 Arterial 115.6 mmHg (7.0-24.0); Allen Test ACCEPTAB; Arterial Base Excess 3.9 mmol/L (-3.0-3); Arterial COHb 1.1 % (0.0-3.0); Arterial Fraction of Oxyhgb 90.7 % (93.0-99.0); Arterial HCO3 29.1 mmol/L (22.0-26.0); Arterial MetHb 0.3 % (0.0-1.5); MODE NASAL CANNULA
--- NOTE | 2017-04-01 14:39 | PN ---
Date/Time of Note Date/Time of Note DATE: 04/01/17 TIME: 14:39 Assessment/Plan VTE Prophylaxis VTE Prophylaxis Intervention: heparin Lines/Catheters IV C[facility]ter Type (from [facility] Mid Line Urinary Cath still in place: No Assessment/Plan Assessment/Plan 1. Acute hypoxic respiratory failure secondary to pleural effusion in right lung - improving - Patient was off NC earlier but desaturated and placed back on NC - Cardiology clearance obtained and okay to hold Plavix and Eliquis prior to VATS - Repeat CXR this am showed stable complete opacification of the right hemithorax, likely corresponding to complete atelectasis/consolidation of the right lung and pleural effusion. - HRCT chest shows large right pleural effusion but appeared to have multiple loculated pockets on US - CT surgery on board and recommending VATS procedure and decortication - Pulmonology consultation appreciated - Bronchodilators as needed 2. Large Right pleural effusion s/p thoracentesis 03/30 - 250 cc of fluid was removed but CXR still showed complete white out of right lung - Pulm on board and consultation appreciated 3. Acute on chronic CHF - Last ECHO 10/2016 showed EF 65% with stage 1 diastolic dysfunction - Monitor I/O and daily weights - CXR shows cardiomegaly - Cardiology consultation appreciated 4. ESRD on HD - patient on scheduled - Nephrology consultation appreciated and plans for HD tomorrow 5. Hypertensive urgency - no longer on cardene drip and BP controlled on home medications 6. DM, type 2 - Continue home insulin regime - ISS and accuchecks - Will adjust as needed - A1c 6.9 7. Heart block/bradycardia with PPM - cardiology on board 8. CAD s/p stent 10/2016 - continue on home medications - Holding Plavix and will continue on Heparin. Hold at least 12 hours prior to procedure 9. Atrial fibrillation - on BB, Eliquis on hold - rate controlled 10. Disposition - Continue monitoring patient in ICU setting >40 minutes of critical care time was spent with patient and family at bedside. Subjective 24 Hr Interval Summary Free Text/Dictation Patient resting comfortably in bed and denies any issues. He was placed on room air but desaturated to 80s and placed back on NC. No acute overnight events and no new complaints. Exam/Review of Systems Vital Signs Vitals Vital Signs Date Time Temp Pulse Resp B/P Pulse Ox O2 Delivery O2 Flow Rate FiO2 04/01/17 12:50 Nasal Cannula 4.0 04/01/17 12:00 72 04/01/17 11:59 97.7 15 151/58 95 03/30/17 19:35 40 Intake and Output 03/31/17 03/31/17 04/01/17 15:00 23:00 07:00 Intake Total 1130 ml 733 ml Output Total 2800 ml 100 ml Balance -1670 ml 633 ml Exam General: Patient is laying in bed and answers questions appropriately, no acute respiratory distress on NC Mentation: Patient is alert and oriented 4, Head: Normocephalic atraumatic Neck: Supple, nontender, midline Respiratory: diminished breath sounds on right, crackles left Cardiovascular: regular rate and rhythm, no obvious murmurs Gastrointestinal: non-tender to palpation, bowel sounds heard. non distended. no rebound or guarding Neurological: Moves all extremities spontaneously Skin: no rashes, ecchymosis Results Result Diagram: 04/01/17 0328 04/01/17 0328 Results 24 hrs Laboratory Tests Test 03/31/17 18:06 03/31/17 21:40 04/01/17 03:12 04/01/17 03:28 Bedside Glucose 242 H 258 H 196 White Blood Count 10.1 Red Blood Count 3.88 L Hemoglobin 9.8 L Hematocrit 32.0 L Mean Corpuscular Volume 82.5 Mean Corpuscular Hemoglobin 25.3 L Mean Corpuscular Hemoglobin Concent 30.6 L Red Cell Distribution Width 14.3 Platelet Count 270 Mean Platelet Volume 11.1 H Neutrophils % 69.8 Lymphocytes % 19.3 Monocytes % 9.2 Eosinophils % 1.0 Basophils % 0.4 Nucleated Red Blood Cells % 0.0 Neutrophils # 7.1 Lymphocytes # 2.0 Monocytes # 0.9 Eosinophils # 0.1 Basophils # 0.0 Nucleated Red Blood Cells # 0.0 Sodium Level 138 Potassium Level 4.5 Chloride Level 93 L Carbon Dioxide Level 31 Anion Gap 19 H Blood Urea Nitrogen 48 H Creatinine 5.67 H Glucose Level 195 Calcium Level 8.6 Phosphorus Level 5.6 H Magnesium Level 2.1 Albumin 3.3 Test 04/01/17 07:00 04/01/17 07:49 04/01/17 11:50 Blood Gas Specimen Source Blood arterial Arterial Blood Date Drawn 04/01/2017 11:20:45 AM Arterial Blood pH (Temp corrected) 7.416 Arterial Blood pCO2 (Temp correct) 46.3 H Arterial Blood pO2 (Temp corrected) 65.6 L Arterial Blood HCO3 29.1 H Arterial Blood Base Excess 3.9 H Arterial Blood Oxygen Saturation 92.0 L Baldev Test ACCEPTAB Arterial Blood Gas Puncture Site Left Radial Arterial Blood Carboxyhemoglobin 1.1 Arterial Blood Methemoglobin 0.3 Blood Gas A-a O2 Differential 115.6 H Oxyhemoglobin Percent 90.7 L Total Hemoglobin 11.0 L Blood Gas Temperature 37.0 Blood Gas Modality NASAL CANNULA FiO2 33.0 Blood Gas Notified Whom JLD Blood Gas Notified Time 04/01/2017 11:41:11 AM Bedside Glucose 185 172 Medications Medications Current Medications Apixaban (Eliquis) 2.5 mg BID PO Last administered on 04/01/17 08:11; Admin Dose 2.5 MG; Start 03/31/17 at 09:00 Atorvastatin Calcium (Lipitor) 80 mg QHS PO Last administered on 03/31/17 21: 29; Admin Dose 80 MG; Start 03/30/17 at 21:00 Bisacodyl (Dulcolax Supp) 10 mg Q24H PRN [place] CONSTIPATION; Start 03/30/17 at 14 :30 Insulin Glargine (Lantus) 10 unit QHS SC Last administered on 03/31/17 21:42 ; Admin Dose 10 UNIT; Start 03/30/17 at 21:00 Lisinopril (Zestril) 2.5 mg BID PO Last administered on 04/01/17 08:37; Admin Dose 2.5 MG; Start 03/30/17 at 21:00 Metoprolol Tartrate (Lopressor) 50 mg BID PO Last administered on 04/01/17 08 :12; Admin Dose 50 MG; Start 03/30/17 at 21:00 Nifedipine (Procardia Xl) 60 mg DAILY PO Last administered on 04/01/17 08:14 ; Admin Dose 60 MG; Start 03/31/17 at 09:00 Polyethylene Glycol (Miralax) 17 gm DAILY PRN PO CONSTIPATION; Start 03/30/17 at 14:30 Ondansetron HCl (Zofran Inj) 4 mg Q6H PRN IV NAUSEA AND/OR VOMITING; Start at 15:30 Acetaminophen (Tylenol Tab) 650 mg Q6H PRN PO PAIN LEVEL 1-3 OR FEVER; Start 03/30/17 at 15:30 Docusate Sodium (Colace) 100 mg Q12H PRN PO CONSTIPATION Last administered on 04/01/17 03:40; Admin Dose 100 MG; Start 03/30/17 at 15:30 Diagnostic Test (Pha) (Accu-Chek) 1 ea 02 XX Last administered on 04/01/17 03 :12; Admin Dose 1 EA; Start 03/31/17 at 02:00 Miscellaneous Information 1 ea NOTE XX ; Start 03/30/17 at 15:30 Glucose (Glutose) 15 gm Q15M PRN PO DECREASED GLUCOSE; Start 03/30/17 at 15:30 Glucose (Glutose) 22.5 gm Q15M PRN PO DECREASED GLUCOSE; Start 03/30/17 at 15: 30 Dextrose (D50w Syringe) 25 ml Q15M PRN IV DECREASED GLUCOSE; Start 03/30/17 at 15:30 Dextrose (D50w Syringe) 50 ml Q15M PRN IV DECREASED GLUCOSE; Start 03/30/17 at 15:30 Glucagon (Glucagen) 1 mg Q15M PRN IM DECREASED GLUCOSE; Start 03/30/17 at 15: 30 Glucose (Glutose) 15 gm Q15M PRN BUCCAL DECREASED GLUCOSE; Start 03/30/17 at 15:30 Guaifenesin/ Codeine Phosphate (Robitussin Ac Liquid Cup) 5 ml Q4H PRN PO cough ; Start 03/30/17 at 19:30 Lidocaine (Lmx 4% Plus) 1 applic PRN PRN TOP Prior to HD cannulation Last administered on 03/31/17 11:23; Admin Dose 1 APPLIC; Start 03/30/17 at 21:00 Pantoprazole 40 mg 40 mg DAILY@06 PO Last administered on 04/01/17 06:06; Admin Dose 40 MG; Start 04/01/17 at 06:00 Nitroglycerin/ Dextrose (Nitroglycerin 50 Mg/D5W (Pmx)) 250 ml @ 1.5 mls/hr TITRATE IV Last administered on 03/31/17 15:07; Admin Dose 3 MLS/HR; Start 03/31/17 at 14:30 JAE RAHMAN MD Apr 01, 2017 14:39
[2017-04-01] MEDS: BISACODYL 10 MG SUPP PR PRN (15:16)
--- NOTE | 2017-04-01 20:13 | PN ---
Date/Time of Note Date/Time of Note DATE: 04/01/17 TIME: 20:10 Assessment/Plan Lines/Catheters IV Catheter Type (from Nrsg): Mid Line Yañez in Place (from Nrsg): No Assessment/Plan Chief Complaint/Hosp Course IMPRESSION: Right-sided pleural effusion which appears to be loculated. RECOMMENDATIONS: This patient would benefit from video-assisted thoracic surgery and decortication. Considering the patient's cardiac history, this needs to be done after cardiology clearance. and pt has been off of plavix for 3 to 4 days Discussed with the family. Will discuss with the referring physicians. Problems: Subjective 24 Hr Interval Summary Constitutional: improved Pain Control: mild Exam/Review of Systems Vital Signs Vitals Vital Signs Date Time Temp Pulse Resp B/P Pulse Ox O2 Delivery O2 Flow Rate FiO2 04/01/17 18:00 98.3 81 24 132/61 94 Nasal Cannula 4.0 03/30/17 19:35 40 Intake and Output 03/31/17 03/31/17 04/01/17 15:00 23:00 07:00 Intake Total 1130 ml 733 ml Output Total 2800 ml 100 ml Balance -1670 ml 633 ml Exam ENMT: mucosa pink and moist, nl external ears & nose, nl lips & teeth, nl nasal mucosa & septum Neck: non-tender, supple Respiratory: clear to auscultation, normal air movement Cardiovascular: nl pulses, regular rate and rhythm Gastrointestinal: nl liver, spleen, non-tender, soft Results Result Diagram: 04/01/17 0328 04/01/17 0328 SHAYLA YAÑEZ MD Apr 01, 2017 20:13
[2017-04-01] MEDS: ATORVASTATIN 80 MG TAB PO SCH (20:32)
[2017-04-01] MEDS: INSULIN GLARGINE [LANtus] 3 ML PEN SC SCH (20:42)
[2017-04-01] MEDS: HEPARIN 5,000 UNIT/0.5 ML VIAL SC SCH (20:43)
[2017-04-02] VITALS (32 sets, daily range): BP systolic 95–155; BP diastolic 39–74; PULSE 70–91; RESP 16–27
[2017-04-02] MEDS: ACCU-CHEK XX SCH (01:50)
[2017-04-02] MEDS ORDERED: INSULIN ASPART [NOVOLOG] 3 ML PEN SC ONE (02:00)
[2017-04-02 05:12] LABS: BASOPHILS % 0.2 % (0.0-2.0); EOSINOPHILS # 0.1 10^3/ul (0.0-0.5); EOSINOPHILS % 1.3 % (0.0-7.0); HEMATOCRIT 30.8 % (42.0-52.0); HEMOGLOBIN 9.6 g/dl (14.0-18.0); LYMPHOCYTES # 1.8 10^3/ul (0.8-2.9); LYMPHOCYTES % 20.4 % (15.0-51.0); MEAN CORPUSCULAR HEMOGLOBIN 25.5 pg (29.0-33.0); MEAN CORPUSCULAR HGB CONC 31.2 g/dl (32.0-37.0); MEAN CORPUSCULAR VOLUME 81.9 fl (82.0-101.0); MEAN PLATELET VOLUME 10.9 fl (7.4-10.4); MONOCYTE # 0.8 10^3/ul (0.3-0.9); MONOCYTES % 9.4 % (0.0-11.0); NEUTROPHIL # 6.1 10^3/ul (1.6-7.5); NEUTROPHILS % 68.4 % (39.0-77.0); PLATELET COUNT 270 10^3/UL (140-415); RED BLOOD COUNT 3.76 10^6/ul (4.70-6.10); RED CELL DISTRIBUTION WIDTH 14.1 % (11.5-14.5)
[2017-04-02 05:53] LABS: ALBUMIN 3.2 g/dl (3.3-4.9); CALCIUM 8.4 mg/dl (8.4-10.2); CREATININE 7.43 mg/dl (0.61-1.24); MAGNESIUM 2.2 mg/dl (1.7-2.5); PHOSPHORUS 5.7 mg/dl (2.5-4.9); POTASSIUM 4.6 mmol/L (3.5-5.1)
[2017-04-02] MEDS: PANTOPRAZOLE (EC) 40 MG TAB PO SCH (06:28)
[2017-04-02] MEDS: INSULIN ASPART [NOVOLOG] 3 ML PEN SC SCH ×4 (07:35→20:45)
[2017-04-02] MEDS: NIFEdipine (XL) 60 MG TAB PO SCH (08:04)
[2017-04-02] MEDS: LISINOPRIL 5 MG TAB PO SCH ×2 (08:05→20:49)
[2017-04-02] MEDS: SEVELAMER CARBONATE 0.8 GM PKT PO SCH ×3 (08:05→17:59)
[2017-04-02] MEDS: METOPROLOL 50 MG TAB PO SCH ×2 (08:06→20:50)
[2017-04-02] MEDS: HEPARIN 5,000 UNIT/0.5 ML VIAL SC SCH ×2 (08:22→20:46)
--- NOTE | 2017-04-02 08:59 | CONS ---
Date/Time of Note Date/Time of Note DATE: 04/02/17 TIME: 08:57 Assessment/Plan Assessment/Plan Additional Assessment/Plan 1. Acute hypoxic resp failure due to acute fluid overload and Pleural effusion 2. ESRD on HD -TTS schedule 3. Right hemithorax multiple loculated right pleural effusion s/p Thoracentesis 250 cc drained- pt has multiple pockets of loculated effusion 4. h/o CAD s/p CABG 5/ H/o recent DC and s/p stenting by 6/ HTN 7/ HL Plan: s/p Thoracentesis 250 cc drained, pt has multiple loculations on right lung- s/ p CT surgery evaluation, pt will benefit from VATS procedure, CT surgery asked for cardiology clearance remained in ICU< required BIPAP intermitently, S/p HD on Thursday 2.3 L removed( 5.3 L removed in Thursday and Thursday dialysis )- will plan for HD today and keep pt on Thu, , Thursday schedule. will follow up Consultation Date/Type/Reason Admit Date/Time Mar 30, 2017 at 15:04 Initial Consult Date 03/30/17 Type of Consultation: NEPHROLOGY 24 HR Interval Summary Free Text/Dictation No acute events, Pt still SOB and tachypneic, Plan for HD today Exam/Review of Systems Vital Signs Vitals Vital Signs Date Time Temp Pulse Resp B/P Pulse Ox O2 Delivery O2 Flow Rate FiO2 04/02/17 06:00 72 18 126/50 100 Nasal Cannula 4.0 04/02/17 05:00 31 04/02/17 04:00 98.5 Intake and Output 04/01/17 04/01/17 04/02/17 15:00 23:00 07:00 Intake Total 360 ml 390 ml Output Total 20 ml Balance 360 ml 390 ml -20 ml Exam Constitutional: alert Head: normocephalic Eyes: nl conjunctiva Neck: non-tender, supple Respiratory: congested cough, crackles/rales, diminished breath sounds, other ( decreased BS on Right Upper and Middle lung ) Cardiovascular: regular rate and rhythm Gastrointestinal: non-tender, soft Musculoskeletal: muscle weakness, other (1-2+ edema ), range of motion Neurological: [employer] II-XII intact, nl mental status, nl speech, nl strength Results Result Diagram: 04/02/17 0430 04/02/17 0430 Results 24 hrs Laboratory Tests Test 04/01/17 11:50 04/01/17 17:33 04/01/17 20:35 04/02/17 01:38 Bedside Glucose 172 205 231 H 246 H Test 04/02/17 04:30 04/02/17 08:19 White Blood Count 9.0 Red Blood Count 3.76 L Hemoglobin 9.6 L Hematocrit 30.8 L Mean Corpuscular Volume 81.9 L Mean Corpuscular Hemoglobin 25.5 L Mean Corpuscular Hemoglobin Concent 31.2 L Red Cell Distribution Width 14.1 Platelet Count 270 Mean Platelet Volume 10.9 H Neutrophils % 68.4 Lymphocytes % 20.4 Monocytes % 9.4 Eosinophils % 1.3 Basophils % 0.2 Nucleated Red Blood Cells % 0.0 Neutrophils # 6.1 Lymphocytes # 1.8 Monocytes # 0.8 Eosinophils # 0.1 Basophils # 0.0 Nucleated Red Blood Cells # 0.0 Sodium Level 136 Potassium Level 4.6 Chloride Level 94 L Carbon Dioxide Level 31 Anion Gap 16 Blood Urea Nitrogen 75 H Creatinine 7.43 H Glucose Level 135 # Calcium Level 8.4 Phosphorus Level 5.7 H Magnesium Level 2.2 Albumin 3.2 L Bedside Glucose 114 Medications Medications Current Medications Apixaban (Eliquis) 2.5 mg BID PO Last administered on 04/01/17 08:11; Admin Dose 2.5 MG; Start 03/31/17 at 09:00; Status Future Hold Atorvastatin Calcium (Lipitor) 80 mg QHS PO Last administered on 04/01/17 20: 32; Admin Dose 80 MG; Start 03/30/17 at 21:00 Bisacodyl (Dulcolax Supp) 10 mg Q24H PRN [place] CONSTIPATION Last administered on 04/01/17 15:16; Admin Dose 10 MG; Start 03/30/17 at 14:30 Insulin Glargine (Lantus) 10 unit QHS SC Last administered on 04/01/17 20:42 ; Admin Dose 10 UNIT; Start 03/30/17 at 21:00 Lisinopril (Zestril) 2.5 mg BID PO Last administered on 04/02/17 08:05; Admin Dose 2.5 MG; Start 03/30/17 at 21:00 Metoprolol Tartrate (Lopressor) 50 mg BID PO Last administered on 04/02/17 08 :06; Admin Dose 50 MG; Start 03/30/17 at 21:00 Nifedipine (Procardia Xl) 60 mg DAILY PO Last administered on 04/02/17 08:04 ; Admin Dose 60 MG; Start 03/31/17 at 09:00 Polyethylene Glycol (Miralax) 17 gm DAILY PRN PO CONSTIPATION Last administered on 04/01/17 17:29; Admin Dose 17 GM; Start 03/30/17 at 14:30 Ondansetron HCl (Zofran Inj) 4 mg Q6H PRN IV NAUSEA AND/OR VOMITING; Start at 15:30 Acetaminophen (Tylenol Tab) 650 mg Q6H PRN PO PAIN LEVEL 1-3 OR FEVER; Start 03/30/17 at 15:30 Docusate Sodium (Colace) 100 mg Q12H PRN PO CONSTIPATION Last administered on 04/01/17 03:40; Admin Dose 100 MG; Start 03/30/17 at 15:30 Diagnostic Test (Pha) (Accu-Chek) 1 ea 02 XX Last administered on 04/02/17 01 :50; Admin Dose 1 EA; Start 03/31/17 at 02:00 Miscellaneous Information 1 ea NOTE XX ; Start 03/30/17 at 15:30 Glucose (Glutose) 15 gm Q15M PRN PO DECREASED GLUCOSE; Start 03/30/17 at 15:30 Glucose (Glutose) 22.5 gm Q15M PRN PO DECREASED GLUCOSE; Start 03/30/17 at 15: 30 Dextrose (D50w Syringe) 25 ml Q15M PRN IV DECREASED GLUCOSE; Start 03/30/17 at 15:30 Dextrose (D50w Syringe) 50 ml Q15M PRN IV DECREASED GLUCOSE; Start 03/30/17 at 15:30 Glucagon (Glucagen) 1 mg Q15M PRN IM DECREASED GLUCOSE; Start 03/30/17 at 15: 30 Glucose (Glutose) 15 gm Q15M PRN BUCCAL DECREASED GLUCOSE; Start 03/30/17 at 15:30 Guaifenesin/ Codeine Phosphate (Robitussin Ac Liquid Cup) 5 ml Q4H PRN PO cough ; Start 03/30/17 at 19:30 Lidocaine (Lmx 4% Plus) 1 applic PRN PRN TOP Prior to HD cannulation Last administered on 03/31/17 11:23; Admin Dose 1 APPLIC; Start 03/30/17 at 21:00 Pantoprazole 40 mg 40 mg DAILY@06 PO Last administered on 04/02/17 06:28; Admin Dose 40 MG; Start 04/01/17 at 06:00 Nitroglycerin/ Dextrose (Nitroglycerin 50 Mg/D5W (Pmx)) 250 ml @ 1.5 mls/hr TITRATE IV Last administered on 03/31/17 15:07; Admin Dose 3 MLS/HR; Start 03/31/17 at 14:30 Heparin Sodium (Porcine) (Heparin (5000 Units/0.5 ml)) 5,000 unit BID SC Last administered on 04/02/17 08:22; Admin Dose 5,000 UNIT; Start 04/01/17 at 21: 00 RAYNE FITCH MD Apr 02, 2017 08:59
--- NOTE | 2017-04-02 09:40 | PN ---
Date/Time of Note Date/Time of Note DATE: 04/02/17 TIME: 09:40 Assessment/Plan VTE Prophylaxis VTE Prophylaxis Intervention: heparin Lines/Catheters IV [facility] Urinary Cath still in place: No Assessment/Plan Assessment/Plan 1. Acute hypoxic respiratory failure secondary to pleural effusion in right lung - improving - Patient saturating well on NC with no acute issues - CT surgery on board and plans for VATS and decortication. Would like Plavix held for 3-4 days prior to procedure. Last dose given on 04/01 - Cardiology clearance obtained and okay to hold Plavix and Eliquis prior to VATS - Repeat CXR yesterday showed stable complete opacification of the right hemithorax, likely corresponding to complete atelectasis/consolidation of the right lung and pleural effusion. - HRCT chest shows large right pleural effusion but appeared to have multiple loculated pockets on US - Pulmonology consultation appreciated - Bronchodilators as needed 2. Large Right pleural effusion s/p thoracentesis 03/30 - 250 cc of fluid was removed but CXR still showed complete white out of right lung - Pulm on board and consultation appreciated 3. Acute on chronic CHF - Last ECHO 10/2016 showed EF 65% with stage 1 diastolic dysfunction - Monitor I/O and daily weights - CXR shows cardiomegaly - Cardiology consultation appreciated 4. ESRD on HD - patient on scheduled - Nephrology consultation appreciated 5. Hypertensive urgency - BP controlled on home medications 6. DM, type 2 - Continue home insulin regime - ISS and accuchecks - Will adjust as needed - A1c 6.9 7. Heart block/bradycardia with PPM - cardiology on board 8. CAD s/p stent 10/2016 - continue on home medications - Holding Plavix and will continue on Heparin which will need to be held prior to procedure 9. Atrial fibrillation - on BB, Eliquis on hold - rate controlled 10. Disposition - Patient stable for transfer to Telemetry >30 minutes of critical care time was spent with patient and family at bedside. Subjective 24 Hr Interval Summary Free Text/Dictation Patient doing well and currently receiving dialysis with no complaints. Saturating well on NC. No acute overnight events. Exam/Review of Systems Vital Signs Vitals Vital Signs Date Time Temp Pulse Resp B/P Pulse Ox O2 Delivery O2 Flow Rate FiO2 04/02/17 08:00 78 04/02/17 06:00 18 126/50 100 Nasal Cannula 4.0 04/02/17 05:00 31 04/02/17 04:00 98.5 Intake and Output 04/01/17 04/01/17 04/02/17 15:00 23:00 07:00 Intake Total 360 ml 390 ml Output Total 20 ml Balance 360 ml 390 ml -20 ml Exam General: Patient is laying in bed and answers questions appropriately, no acute respiratory distress on NC Mentation: Patient is alert and oriented 4, Head: Normocephalic atraumatic Neck: Supple, nontender, midline Respiratory: diminished breath sounds on right, crackles left Cardiovascular: regular rate and rhythm, no obvious murmurs Gastrointestinal: non-tender to palpation, bowel sounds heard. non distended. no rebound or guarding Neurological: Moves all extremities spontaneously Skin: no rashes, ecchymosis Results Result Diagram: 04/02/17 0430 04/02/17 0430 Results 24 hrs Laboratory Tests Test 04/01/17 11:50 04/01/17 17:33 04/01/17 20:35 04/02/17 01:38 Bedside Glucose 172 205 231 H 246 H Test 04/02/17 04:30 04/02/17 08:19 White Blood Count 9.0 Red Blood Count 3.76 L Hemoglobin 9.6 L Hematocrit 30.8 L Mean Corpuscular Volume 81.9 L Mean Corpuscular Hemoglobin 25.5 L Mean Corpuscular Hemoglobin Concent 31.2 L Red Cell Distribution Width 14.1 Platelet Count 270 Mean Platelet Volume 10.9 H Neutrophils % 68.4 Lymphocytes % 20.4 Monocytes % 9.4 Eosinophils % 1.3 Basophils % 0.2 Nucleated Red Blood Cells % 0.0 Neutrophils # 6.1 Lymphocytes # 1.8 Monocytes # 0.8 Eosinophils # 0.1 Basophils # 0.0 Nucleated Red Blood Cells # 0.0 Sodium Level 136 Potassium Level 4.6 Chloride Level 94 L Carbon Dioxide Level 31 Anion Gap 16 Blood Urea Nitrogen 75 H Creatinine 7.43 H Glucose Level 135 # Calcium Level 8.4 Phosphorus Level 5.7 H Magnesium Level 2.2 Albumin 3.2 L Bedside Glucose 114 Medications Medications Current Medications Apixaban (Eliquis) 2.5 mg BID PO Last administered on 04/01/17t 08:11; Admin Dose 2.5 MG; Start 03/31/17 at 09:00; Status Future Hold Atorvastatin Calcium (Lipitor) 80 mg QHS PO Last administered on 04/01/17 20: 32; Admin Dose 80 MG; Start 03/30/17 at 21:00 Bisacodyl (Dulcolax Supp) 10 mg Q24H PRN [place] CONSTIPATION Last administered on 04/01/17 15:16; Admin Dose 10 MG; Start 03/30/17 at 14:30 Insulin Glargine (Lantus) 10 unit QHS SC Last administered on 04/01/17 20:42 ; Admin Dose 10 UNIT; Start 03/30/17 at 21:00 Lisinopril (Zestril) 2.5 mg BID PO Last administered on 04/02/17 08:05; Admin Dose 2.5 MG; Start 03/30/17 at 21:00 Metoprolol Tartrate (Lopressor) 50 mg BID PO Last administered on 04/02/17 08 :06; Admin Dose 50 MG; Start 03/30/17 at 21:00 Nifedipine (Procardia Xl) 60 mg DAILY PO Last administered on 04/02/17 08:04 ; Admin Dose 60 MG; Start 03/31/17 at 09:00 Polyethylene Glycol (Miralax) 17 gm DAILY PRN PO CONSTIPATION Last administered on 04/01/17 17:29; Admin Dose 17 GM; Start 03/30/17 at 14:30 Ondansetron HCl (Zofran Inj) 4 mg Q6H PRN IV NAUSEA AND/OR VOMITING; Start at 15:30 Acetaminophen (Tylenol Tab) 650 mg Q6H PRN PO PAIN LEVEL 1-3 OR FEVER; Start 03/30/17 at 15:30 Docusate Sodium (Colace) 100 mg Q12H PRN PO CONSTIPATION Last administered on 04/01/17 03:40; Admin Dose 100 MG; Start 03/30/17 at 15:30 Diagnostic Test (Pha) (Accu-Chek) 1 ea 02 XX Last administered on 04/02/17 01 :50; Admin Dose 1 EA; Start 03/31/17 at 02:00 Miscellaneous Information 1 ea NOTE XX ; Start 03/30/17 at 15:30 Glucose (Glutose) 15 gm Q15M PRN PO DECREASED GLUCOSE; Start 03/30/17 at 15:30 Glucose (Glutose) 22.5 gm Q15M PRN PO DECREASED GLUCOSE; Start 03/30/17 at 15: 30 Dextrose (D50w Syringe) 25 ml Q15M PRN IV DECREASED GLUCOSE; Start 03/30/17 at 15:30 Dextrose (D50w Syringe) 50 ml Q15M PRN IV DECREASED GLUCOSE; Start 03/30/17 at 15:30 Glucagon (Glucagen) 1 mg Q15M PRN IM DECREASED GLUCOSE; Start 03/30/17 at 15: 30 Glucose (Glutose) 15 gm Q15M PRN BUCCAL DECREASED GLUCOSE; Start 03/30/17 at 15:30 Guaifenesin/ Codeine Phosphate (Robitussin Ac Liquid Cup) 5 ml Q4H PRN PO cough ; Start 03/30/17 at 19:30 Lidocaine (Lmx 4% Plus) 1 applic PRN PRN TOP Prior to HD cannulation Last administered on 03/31/17 11:23; Admin Dose 1 APPLIC; Start 03/30/17 at 21:00 Pantoprazole 40 mg 40 mg DAILY@06 PO Last administered on 04/02/17 06:28; Admin Dose 40 MG; Start 04/01/17 at 06:00 Nitroglycerin/ Dextrose (Nitroglycerin 50 Mg/D5W (Pmx)) 250 ml @ 1.5 mls/hr TITRATE IV Last administered on 03/31/17 15:07; Admin Dose 3 MLS/HR; Start 03/31/17 at 14:30 Heparin Sodium (Porcine) (Heparin (5000 Units/0.5 ml)) 5,000 unit BID SC Last administered on 04/02/17 08:22; Admin Dose 5,000 UNIT; Start 04/01/17 at 21: 00 JAE RAHMAN MD Apr 02, 2017 09:40
--- NOTE | 2017-04-02 09:59 | CONS ---
Date/Time of Note Date/Time of Note DATE: 04/02/17 TIME: 09:56 Consult Date/Type/Reason Admit Date/Time Mar 30, 2017 at 15:04 Initial Consult Date 03/30/17 Type of Consultation: Pulmonary Subjective Patient remains stable this morning awake alert oriented on nasal cannula O2. No respiratory distress. Objective Vital Signs Date Time Temp Pulse Resp B/P Pulse Ox O2 Delivery O2 Flow Rate FiO2 04/02/17 08:00 78 04/02/17 06:00 18 126/50 100 Nasal Cannula 4.0 04/02/17 05:00 31 04/02/17 04:00 98.5 Intake and Output 04/01/17 04/01/17 04/02/17 14:59 22:59 06:59 Intake Total 360 ml 390 ml Output Total 20 ml Balance 360 ml 390 ml -20 ml Exam GENERAL: Well-nourished well-developed gentleman comfortable at rest VITAL SIGNS: per chart NECK: Supple. No JVD or lymphadenopathy. CARDIAC EXAM: S1, S2. No added sounds or murmurs. CHEST: Decreased air entry right lung ABDOMEN: Soft, nontender. No guarding or rebound. EXTREMITIES: No cyanosis, clubbing or edema. NEUROLOGIC: Generalized weakness. No focal deficits. Results/Medications Result Diagram: 04/02/17 0430 04/02/17 0430 Results 24 hrs Laboratory Tests Test 04/01/17 11:50 04/01/17 17:33 04/01/17 20:35 04/02/17 01:38 Bedside Glucose 172 205 231 H 246 H Test 04/02/17 04:30 04/02/17 08:19 White Blood Count 9.0 Red Blood Count 3.76 L Hemoglobin 9.6 L Hematocrit 30.8 L Mean Corpuscular Volume 81.9 L Mean Corpuscular Hemoglobin 25.5 L Mean Corpuscular Hemoglobin Concent 31.2 L Red Cell Distribution Width 14.1 Platelet Count 270 Mean Platelet Volume 10.9 H Neutrophils % 68.4 Lymphocytes % 20.4 Monocytes % 9.4 Eosinophils % 1.3 Basophils % 0.2 Nucleated Red Blood Cells % 0.0 Neutrophils # 6.1 Lymphocytes # 1.8 Monocytes # 0.8 Eosinophils # 0.1 Basophils # 0.0 Nucleated Red Blood Cells # 0.0 Sodium Level 136 Potassium Level 4.6 Chloride Level 94 L Carbon Dioxide Level 31 Anion Gap 16 Blood Urea Nitrogen 75 H Creatinine 7.43 H Glucose Level 135 # Calcium Level 8.4 Phosphorus Level 5.7 H Magnesium Level 2.2 Albumin 3.2 L Bedside Glucose 114 Medications Current Medications Apixaban (Eliquis) 2.5 mg BID PO Last administered on 04/01/17 08:11; Admin Dose 2.5 MG; Start 03/31/17 at 09:00; Status Future Hold Atorvastatin Calcium (Lipitor) 80 mg QHS PO Last administered on 04/01/17 20: 32; Admin Dose 80 MG; Start 03/30/17 at 21:00 Bisacodyl (Dulcolax Supp) 10 mg Q24H PRN [place] CONSTIPATION Last administered on 04/01/17 15:16; Admin Dose 10 MG; Start 03/30/17 at 14:30 Insulin Glargine (Lantus) 10 unit QHS SC Last administered on 04/01/17 20:42 ; Admin Dose 10 UNIT; Start 03/30/17 at 21:00 Lisinopril (Zestril) 2.5 mg BID PO Last administered on 04/02/17 08:05; Admin Dose 2.5 MG; Start 03/30/17 at 21:00 Metoprolol Tartrate (Lopressor) 50 mg BID PO Last administered on 04/02/17 08 :06; Admin Dose 50 MG; Start 03/30/17 at 21:00 Nifedipine (Procardia Xl) 60 mg DAILY PO Last administered on 04/02/17 08:04 ; Admin Dose 60 MG; Start 03/31/17 at 09:00 Polyethylene Glycol (Miralax) 17 gm DAILY PRN PO CONSTIPATION Last administered on 04/01/17 17:29; Admin Dose 17 GM; Start 03/30/17 at 14:30 Ondansetron HCl (Zofran Inj) 4 mg Q6H PRN IV NAUSEA AND/OR VOMITING; Start at 15:30 Acetaminophen (Tylenol Tab) 650 mg Q6H PRN PO PAIN LEVEL 1-3 OR FEVER; Start 03/30/17 at 15:30 Docusate Sodium (Colace) 100 mg Q12H PRN PO CONSTIPATION Last administered on 04/01/17 03:40; Admin Dose 100 MG; Start 03/30/17 at 15:30 Diagnostic Test (Pha) (Accu-Chek) 1 ea 02 XX Last administered on 04/02/17 01 :50; Admin Dose 1 EA; Start 03/31/17 at 02:00 Miscellaneous Information 1 ea NOTE XX ; Start 03/30/17 at 15:30 Glucose (Glutose) 15 gm Q15M PRN PO DECREASED GLUCOSE; Start 03/30/17 at 15:30 Glucose (Glutose) 22.5 gm Q15M PRN PO DECREASED GLUCOSE; Start 03/30/17 at 15: 30 Dextrose (D50w Syringe) 25 ml Q15M PRN IV DECREASED GLUCOSE; Start 03/30/17 at 15:30 Dextrose (D50w Syringe) 50 ml Q15M PRN IV DECREASED GLUCOSE; Start 03/30/17 at 15:30 Glucagon (Glucagen) 1 mg Q15M PRN IM DECREASED GLUCOSE; Start 03/30/17 at 15: 30 Glucose (Glutose) 15 gm Q15M PRN BUCCAL DECREASED GLUCOSE; Start 03/30/17 at 15:30 Guaifenesin/ Codeine Phosphate (Robitussin Ac Liquid Cup) 5 ml Q4H PRN PO cough ; Start 03/30/17 at 19:30 Lidocaine (Lmx 4% Plus) 1 applic PRN PRN TOP Prior to HD cannulation Last administered on 03/31/17 11:23; Admin Dose 1 APPLIC; Start 03/30/17 at 21:00 Pantoprazole 40 mg 40 mg DAILY@06 PO Last administered on 04/02/17 06:28; Admin Dose 40 MG; Start 04/01/17 at 06:00 Nitroglycerin/ Dextrose (Nitroglycerin 50 Mg/D5W (Pmx)) 250 ml @ 1.5 mls/hr TITRATE IV Last administered on 03/31/17 15:07; Admin Dose 3 MLS/HR; Start 03/31/17 at 14:30 Heparin Sodium (Porcine) (Heparin (5000 Units/0.5 ml)) 5,000 unit BID SC Last administered on 04/02/17 08:22; Admin Dose 5,000 UNIT; Start 04/01/17 at 21: 00 Assessment/Plan Chief Complaint/Hosp Course IMPRESSION AND PLAN: 1. Loculated pleural effusion, possibly post-infectious. Complete opacification of right lung 2. Hypoxemic respiratory failure. 3. End-stage renal failure on hemodialysis. 4. History of coronary artery disease. The patient will require: 1. Thoracic surgery evaluation for decortication and pleurodesis. Plavix on hold. 2. Continue hemodialysis. 3. Supplemental O2. 4. Pleural fluid cytology studies. Transfer to telemetry. Problems: KI WHITAKER MD, [facility] Apr 02, 2017 09:59
--- NOTE | 2017-04-02 17:56 | CONS ---
Date/Time of Note Date/Time of Note DATE: 04/02/17 TIME: 17:55 Consult Date/Type/Reason Admit Date/Time Mar 30, 2017 at 15:04 Initial Consult Date 03/30/17 Type of Consultation: Int and endovasc Cardiology Objective Vital Signs Date Time Temp Pulse Resp B/P Pulse Ox O2 Delivery O2 Flow Rate FiO2 04/02/17 16:23 3.0 04/02/17 16:00 98.6 80 22 107/41 96 Nasal Cannula 04/02/17 05:00 31 Intake and Output 04/01/17 04/01/17 04/02/17 15:00 23:00 07:00 Intake Total 360 ml 390 ml Output Total 20 ml Balance 360 ml 390 ml -20 ml Results/Medications Result Diagram: 04/02/17 0430 04/02/17 0430 Results 24 hrs Laboratory Tests Test 04/01/17 20:35 04/02/17 01:38 04/02/17 04:30 04/02/17 08:19 Bedside Glucose 231 H 246 H 114 White Blood Count 9.0 Red Blood Count 3.76 L Hemoglobin 9.6 L Hematocrit 30.8 L Mean Corpuscular Volume 81.9 L Mean Corpuscular Hemoglobin 25.5 L Mean Corpuscular Hemoglobin Concent 31.2 L Red Cell Distribution Width 14.1 Platelet Count 270 Mean Platelet Volume 10.9 H Neutrophils % 68.4 Lymphocytes % 20.4 Monocytes % 9.4 Eosinophils % 1.3 Basophils % 0.2 Nucleated Red Blood Cells % 0.0 Neutrophils # 6.1 Lymphocytes # 1.8 Monocytes # 0.8 Eosinophils # 0.1 Basophils # 0.0 Nucleated Red Blood Cells # 0.0 Sodium Level 136 Potassium Level 4.6 Chloride Level 94 L Carbon Dioxide Level 31 Anion Gap 16 Blood Urea Nitrogen 75 H Creatinine 7.43 H Glucose Level 135 # Calcium Level 8.4 Phosphorus Level 5.7 H Magnesium Level 2.2 Albumin 3.2 L Test 04/02/17 12:55 Bedside Glucose 146 Medications Current Medications Apixaban (Eliquis) 2.5 mg BID PO Last administered on 04/01/17 08:11; Admin Dose 2.5 MG; Start 03/31/17 at 09:00; Status Future Hold Atorvastatin Calcium (Lipitor) 80 mg QHS PO Last administered on 04/01/17 20: 32; Admin Dose 80 MG; Start 03/30/17 at 21:00 Bisacodyl (Dulcolax Supp) 10 mg Q24H PRN [place] CONSTIPATION Last administered on 04/01/17 15:16; Admin Dose 10 MG; Start 03/30/17 at 14:30 Insulin Glargine (Lantus) 10 unit QHS SC Last administered on 04/01/17 20:42 ; Admin Dose 10 UNIT; Start 03/30/17 at 21:00 Lisinopril (Zestril) 2.5 mg BID PO Last administered on 04/02/17 08:05; Admin Dose 2.5 MG; Start 03/30/17 at 21:00 Metoprolol Tartrate (Lopressor) 50 mg BID PO Last administered on 04/02/17 08 :06; Admin Dose 50 MG; Start 03/30/17 at 21:00 Nifedipine (Procardia Xl) 60 mg DAILY PO Last administered on 04/02/17 08:04 ; Admin Dose 60 MG; Start 03/31/17 at 09:00 Polyethylene Glycol (Miralax) 17 gm DAILY PRN PO CONSTIPATION Last administered on 04/01/17 17:29; Admin Dose 17 GM; Start 03/30/17 at 14:30 Ondansetron HCl (Zofran Inj) 4 mg Q6H PRN IV NAUSEA AND/OR VOMITING; Start at 15:30 Acetaminophen (Tylenol Tab) 650 mg Q6H PRN PO PAIN LEVEL 1-3 OR FEVER; Start 03/30/17 at 15:30 Docusate Sodium (Colace) 100 mg Q12H PRN PO CONSTIPATION Last administered on 04/01/17 03:40; Admin Dose 100 MG; Start 03/30/17 at 15:30 Diagnostic Test (Pha) (Accu-Chek) 1 ea 02 XX Last administered on 04/02/17 01 :50; Admin Dose 1 EA; Start 03/31/17 at 02:00 Miscellaneous Information 1 ea NOTE XX ; Start 03/30/17 at 15:30 Glucose (Glutose) 15 gm Q15M PRN PO DECREASED GLUCOSE; Start 03/30/17 at 15:30 Glucose (Glutose) 22.5 gm Q15M PRN PO DECREASED GLUCOSE; Start 03/30/17 at 15: 30 Dextrose (D50w Syringe) 25 ml Q15M PRN IV DECREASED GLUCOSE; Start 03/30/17 at 15:30 Dextrose (D50w Syringe) 50 ml Q15M PRN IV DECREASED GLUCOSE; Start 03/30/17 at 15:30 Glucagon (Glucagen) 1 mg Q15M PRN IM DECREASED GLUCOSE; Start 03/30/17 at 15: 30 Glucose (Glutose) 15 gm Q15M PRN BUCCAL DECREASED GLUCOSE; Start 03/30/17 at 15:30 Guaifenesin/ Codeine Phosphate (Robitussin Ac Liquid Cup) 5 ml Q4H PRN PO cough ; Start 03/30/17 at 19:30 Lidocaine (Lmx 4% Plus) 1 applic PRN PRN TOP Prior to HD cannulation Last administered on 03/31/17 11:23; Admin Dose 1 APPLIC; Start 03/30/17 at 21:00 Pantoprazole (Protonix Tab) 40 mg DAILY@06 PO Last administered on 04/02/17 06:28; Admin Dose 40 MG; Start 04/01/17 at 06:00 Heparin Sodium (Porcine) (Heparin (5000 Units/0.5 ml)) 5,000 unit BID SC Last administered on 04/02/17 08:22; Admin Dose 5,000 UNIT; Start 04/01/17 at 21: 00 Assessment/Plan Chief Complaint/Hosp Course Patient is know to me form out pt with history of [place] with PCI of RCA, SSS s/p st sayra PPM implantation, HTN, ESRD on HD, Severe PAD and Venous disease, HLD who presented to ER with Severe SOB, found to have white out of his right lung, likely PNA, s/p thoracocentesis with 250cc fluid only. No WBC, NO fever, Less likely this is Infection at this extent, I would get Contrast CT with [place]. Problems: Additional Assessment/Plan Hold Plavix for 5 days, Eliques 48hrs will goes out of system. pt is stable in ICU plan for VATS. restart Eliques and Plavix as soon as surgery clears pt to restart. stable continue HD high flow O2. HUNTER BASSETT MD Apr 02, 2017 17:56
--- NOTE | 2017-04-02 18:31 | PN ---
Date/Time of Note Date/Time of Note DATE: 04/02/17 TIME: 18:29 Assessment/Plan Lines/Catheters IV Catheter Type (from Nrsg): Mid Line Yañez in Place (from Nrsg): No Assessment/Plan Chief Complaint/Hosp Course IMPRESSION: Right-sided pleural effusion which appears to be loculated. RECOMMENDATIONS: This patient would benefit from video-assisted thoracic surgery and decortication. Considering the patient's cardiac history, this needs to be done after cardiology clearance. and pt has been off of plavix for 3 to 4 days Plan for surgery on Thursday Discussed with the family. Will discuss with the referring physicians. Problems: Subjective 24 Hr Interval Summary Constitutional: improved Pain Control: mild Exam/Review of Systems Vital Signs Vitals Vital Signs Date Time Temp Pulse Resp B/P Pulse Ox O2 Delivery O2 Flow Rate FiO2 04/02/17 16:23 3.0 04/02/17 16:00 80 04/02/17 16:00 98.6 22 107/41 96 Nasal Cannula 04/02/17 05:00 31 Intake and Output 04/01/17 04/01/17 04/02/17 15:00 23:00 07:00 Intake Total 360 ml 390 ml Output Total 20 ml Balance 360 ml 390 ml -20 ml Exam ENMT: mucosa pink and moist, nl external ears & nose, nl lips & teeth, nl nasal mucosa & septum Neck: non-tender, supple Respiratory: clear to auscultation, normal air movement Cardiovascular: nl pulses, regular rate and rhythm Results Result Diagram: 04/02/17 0430 04/02/17 0430 SHAYLA YAÑEZ MD Apr 02, 2017 18:31
[2017-04-02] MEDS: INSULIN GLARGINE [LANtus] 3 ML PEN SC SCH (20:45)
[2017-04-02] MEDS: ATORVASTATIN 80 MG TAB PO SCH (20:50)
[2017-04-03] VITALS (12 sets, daily range): BP systolic 107–145; BP diastolic 50–65; PULSE 71–80; RESP 16–20
[2017-04-03] MEDS: ACCU-CHEK XX SCH (02:00)
[2017-04-03] MEDS: PANTOPRAZOLE (EC) 40 MG TAB PO SCH (05:28)
[2017-04-03] MEDS: DOCUSATE SODIUM 100 MG CAP PO PRN (05:28)
[2017-04-03 07:35] LABS: BASOPHILS % 0.4 % (0.0-2.0); EOSINOPHILS # 0.1 10^3/ul (0.0-0.5); HEMATOCRIT 34.2 % (42.0-52.0); HEMOGLOBIN 10.4 g/dl (14.0-18.0); LYMPHOCYTES # 1.3 10^3/ul (0.8-2.9); LYMPHOCYTES % 15.8 % (15.0-51.0); MEAN CORPUSCULAR HEMOGLOBIN 25.2 pg (29.0-33.0); MEAN CORPUSCULAR HGB CONC 30.4 g/dl (32.0-37.0); MEAN PLATELET VOLUME 10.9 fl (7.4-10.4); MONOCYTE # 0.7 10^3/ul (0.3-0.9); MONOCYTES % 8.7 % (0.0-11.0); NEUTROPHILS % 73.5 % (39.0-77.0); PLATELET COUNT 276 10^3/UL (140-415); RED BLOOD COUNT 4.12 10^6/ul (4.70-6.10); RED CELL DISTRIBUTION WIDTH 13.9 % (11.5-14.5); WHITE BLOOD COUNT 8.2 10^3/ul (4.8-10.8)
[2017-04-03 07:43] LABS: ALBUMIN 3.4 g/dl (3.3-4.9); CALCIUM 8.7 mg/dl (8.4-10.2); CREATININE 6.68 mg/dl (0.61-1.24); MAGNESIUM 2.2 mg/dl (1.7-2.5); PHOSPHORUS 5.6 mg/dl (2.5-4.9); POTASSIUM 5.1 mmol/L (3.5-5.1)
[2017-04-03] MEDS: NIFEdipine (XL) 60 MG TAB PO SCH (08:53)
[2017-04-03] MEDS: LISINOPRIL 5 MG TAB PO SCH ×2 (08:53→21:00)
[2017-04-03] MEDS: SEVELAMER CARBONATE 0.8 GM PKT PO SCH ×3 (08:54→17:13)
[2017-04-03] MEDS: METOPROLOL 50 MG TAB PO SCH ×2 (08:54→21:00)
[2017-04-03] MEDS: INSULIN ASPART [NOVOLOG] 3 ML PEN SC SCH ×4 (08:58→21:39)
--- NOTE | 2017-04-03 11:47 | PN ---
Date/Time of Note Date/Time of Note DATE: 04/03/17 TIME: 11:47 Assessment/Plan VTE Prophylaxis VTE Prophylaxis Intervention: heparin, SCD's Lines/Catheters IV Catheter Type (from Nrs): Mid Line Urinary Cath still in place: No Assessment/Plan Assessment/Plan 1. Acute hypoxic respiratory failure secondary to pleural effusion in right lung - improving -Continues to remain stable on nasal canula with no episodes of desaturations - CT surgery on board and plans for VATS and decortication. Would like Plavix held for 3-4 days prior to procedure. Last dose given on 04/01 - Cardiology clearance obtained and okay to hold Plavix and Eliquis prior to VATS - Repeat CXR yesterday showed stable complete opacification of the right hemithorax, likely corresponding to complete atelectasis/consolidation of the right lung and pleural effusion. - HRCT chest shows large right pleural effusion but appeared to have multiple loculated pockets on US - Pulmonology consultation appreciated - Bronchodilators as needed 2. Large Right pleural effusion s/p thoracentesis 03/30 - 250 cc of fluid was removed but CXR still showed complete white out of right lung - Pulm on board and consultation appreciated 3. Acute on chronic CHF - Last ECHO 10/2016 showed EF 65% with stage 1 diastolic dysfunction - Monitor I/O and daily weights - CXR shows cardiomegaly - Cardiology consultation appreciated 4. ESRD on HD - patient on scheduled - Nephrology consultation appreciated 5. Hypertensive urgency - BP controlled on home medications 6. DM, type 2 - Continue home insulin regime - ISS and accuchecks - Will adjust as needed - A1c 6.9 7. Heart block/bradycardia with PPM - cardiology on board 8. CAD s/p stent 10/2016 - continue on home medications - Holding Plavix and will continue on Heparin which will need to be held prior to procedure 9. Atrial fibrillation - on BB, Eliquis on hold - rate controlled 10. Oliguria - Will bladder scan and if >350 instructed to straight cath patient - Will try Lasix 80mg IV 11. Constipation - Will give Senna S and if needed suppository 12. Disposition - scheduled for VATS Subjective 24 Hr Interval Summary Free Text/Dictation Patients family in room and all questions answered. Patient c/o constipation as well as oliguria. States usually urinates daily but has not urinated in 2 days. No acute overnight events. Tolerating NC Exam/Review of Systems Vital Signs Vitals Vital Signs Date Time Temp Pulse Resp B/P Pulse Ox O2 Delivery O2 Flow Rate FiO2 04/03/17 08:51 77 04/03/17 07:50 99.1 19 107/53 95 04/03/17 06:37 3.0 04/02/17 21:05 Nasal Cannula 04/02/17 20:16 31 Intake and Output 04/02/17 04/02/17 04/03/17 15:00 23:00 07:00 Intake Total 520 ml 120 ml 150 ml Output Total 3300 ml Balance -2780 ml 120 ml 150 ml Exam General: Patient is laying in bed and answers questions appropriately, no acute respiratory distress Mentation: Patient is alert and oriented 4, Head: Normocephalic atraumatic Neck: Supple, nontender, midline Respiratory: diminished breath sounds on right, crackles left Cardiovascular: regular rate and rhythm, no obvious murmurs Gastrointestinal: non-tender to palpation, bowel sounds heard. non distended. no rebound or guarding. no suprapubic discomfort Neurological: Moves all extremities spontaneously Skin: no rashes, ecchymosis Results Result Diagram: 04/03/17 0641 04/03/17 0641 Results 24 hrs Laboratory Tests Test 04/02/17 12:55 04/02/17 17:58 04/02/17 20:42 04/03/17 01:57 Bedside Glucose 146 197 244 H 220 Test 04/03/17 06:41 04/03/17 08:52 White Blood Count 8.2 Red Blood Count 4.12 L Hemoglobin 10.4 L Hematocrit 34.2 L Mean Corpuscular Volume 83.0 Mean Corpuscular Hemoglobin 25.2 L Mean Corpuscular Hemoglobin Concent 30.4 L Red Cell Distribution Width 13.9 Platelet Count 276 Mean Platelet Volume 10.9 H Neutrophils % 73.5 Lymphocytes % 15.8 Monocytes % 8.7 Eosinophils % 1.0 Basophils % 0.4 Nucleated Red Blood Cells % 0.0 Neutrophils # 6.0 Lymphocytes # 1.3 Monocytes # 0.7 Eosinophils # 0.1 Basophils # 0.0 Nucleated Red Blood Cells # 0.0 Sodium Level 137 Potassium Level 5.1 Chloride Level 95 L Carbon Dioxide Level 30 Anion Gap 17 H Blood Urea Nitrogen 60 H Creatinine 6.68 H Glucose Level 209 Calcium Level 8.7 Phosphorus Level 5.6 H Magnesium Level 2.2 Albumin 3.4 Bedside Glucose 201 Medications Medications Current Medications Apixaban (Eliquis) 2.5 mg BID PO Last administered on 04/01/17 08:11; Admin Dose 2.5 MG; Start 03/31/17 at 09:00; Status Future Hold Atorvastatin Calcium (Lipitor) 80 mg QHS PO Last administered on 04/02/17 20: 50; Admin Dose 80 MG; Start 03/30/17 at 21:00 Bisacodyl (Dulcolax Supp) 10 mg Q24H PRN [place] CONSTIPATION Last administered on 04/01/17 15:16; Admin Dose 10 MG; Start 03/30/17 at 14:30 Insulin Glargine (Lantus) 10 unit QHS SC Last administered on 04/02/17 20:45 ; Admin Dose 10 UNIT; Start 03/30/17 at 21:00 Lisinopril (Zestril) 2.5 mg BID PO Last administered on 04/03/17 08:53; Admin Dose 2.5 MG; Start 03/30/17 at 21:00 Metoprolol Tartrate (Lopressor) 50 mg BID PO Last administered on 04/03/17 08: 54; Admin Dose 50 MG; Start 03/30/17 at 21:00 Nifedipine (Procardia Xl) 60 mg DAILY PO Last administered on 04/03/17 08:53; Admin Dose 60 MG; Start 03/31/17 at 09:00 Ondansetron HCl (Zofran Inj) 4 mg Q6H PRN IV NAUSEA AND/OR VOMITING; Start at 15:30 Acetaminophen (Tylenol Tab) 650 mg Q6H PRN PO PAIN LEVEL 1-3 OR FEVER; Start 03/30/17 at 15:30 Diagnostic Test (Pha) (Accu-Chek) 1 ea 02 XX Last administered on 04/02/17 01 :50; Admin Dose 1 EA; Start 03/31/17 at 02:00 Miscellaneous Information 1 ea NOTE XX ; Start 03/30/17 at 15:30 Glucose (Glutose) 15 gm Q15M PRN PO DECREASED GLUCOSE; Start 03/30/17 at 15:30 Glucose (Glutose) 22.5 gm Q15M PRN PO DECREASED GLUCOSE; Start 03/30/17 at 15: 30 Dextrose (D50w Syringe) 25 ml Q15M PRN IV DECREASED GLUCOSE; Start 03/30/17 at 15:30 Dextrose (D50w Syringe) 50 ml Q15M PRN IV DECREASED GLUCOSE; Start 03/30/17 at 15:30 Glucagon (Glucagen) 1 mg Q15M PRN IM DECREASED GLUCOSE; Start 03/30/17 at 15: 30 Glucose (Glutose) 15 gm Q15M PRN BUCCAL DECREASED GLUCOSE; Start 03/30/17 at 15:30 Guaifenesin/ Codeine Phosphate (Robitussin Ac Liquid Cup) 5 ml Q4H PRN PO cough ; Start 03/30/17 at 19:30 Lidocaine (Lmx 4% Plus) 1 applic PRN PRN TOP Prior to HD cannulation Last administered on 03/31/17 11:23; Admin Dose 1 APPLIC; Start 03/30/17 at 21:00 Pantoprazole (Protonix Tab) 40 mg DAILY@06 PO Last administered on 04/03/17 05 :28; Admin Dose 40 MG; Start 04/01/17 at 06:00 Heparin Sodium (Porcine) (Heparin (5000 Units/0.5 ml)) 5,000 unit BID SC Last administered on 04/02/17 20:46; Admin Dose 5,000 UNIT; Start 04/01/17 at 21: 00 Senna/Docusate Sodium (Senokot-S) 1 tab DAILY PO ; Start 04/03/17 at 12:00; Status UNV Mineral Oil (Fleet Mineral Oil Enema) 133 ml DAILY PRN [place] constipation; Start 04/03/17 at 12:00 JAE RAHMAN MD Apr 03, 2017 11:47
[2017-04-03] MEDS ORDERED: MINERAL OIL 133 ML ENEMA PR PRN (12:00)
[2017-04-03] MEDS: HEPARIN 5,000 UNIT/0.5 ML VIAL SC SCH ×2 (12:03→21:39)
[2017-04-03] MEDS: ALBUTEROL 0.083% (NEB) 2.5 MG/3 ML AMP HHN SCH ×3 (12:05→21:59)
--- NOTE | 2017-04-03 12:14 | CONS ---
Date/Time of Note Date/Time of Note DATE: 04/03/17 TIME: 12:12 Assessment/Plan Assessment/Plan Additional Assessment/Plan Assessment and recommendations; 1. Patient admitted with shortness of breath discovered to have total opacification of the right lung with multiple loculated right pleural effusion. Status post attempted thoracentesis, only 200 mL of fluid could be aspirated. Possibly underlying empyema. 2. End-stage renal disease, on hemodialysis. Continue current supportive care. Patient scheduled for VATS procedure. Consultation Date/Type/Reason Admit Date/Time Mar 30, 2017 at 15:04 Initial Consult Date 03/30/17 Type of Consultation: Pulmonary 24 HR Interval Summary Free Text/Dictation Patient's condition is stable. Remains awake alert. Denies any significant shortness of breath. General exam; elderly male, awake, currently in no distress. Exam/Review of Systems Vital Signs Vitals Vital Signs Date Time Temp Pulse Resp B/P Pulse Ox O2 Delivery O2 Flow Rate FiO2 04/03/17 12:05 3.0 04/03/17 08:51 77 04/03/17 07:50 99.1 19 107/53 95 04/02/17 21:05 Nasal Cannula 04/02/17 20:16 31 Intake and Output 04/02/17 04/02/17 04/03/17 15:00 23:00 07:00 Intake Total 520 ml 120 ml 150 ml Output Total 3300 ml Balance -2780 ml 120 ml 150 ml Exam H ENT exam; supple neck, no JVD. No lymphadenopathy. Midline trachea. No thyromegaly. Patient has fair dentition. Chest exam; diminished breath sounds right lung. Left lung is clear to auscultation. S1-S2 audible, no murmurs. Abdomen exam; soft, mildly protuberant. Nontender. No organomegaly. Bowel sounds audible. Extremity exam; no edema. 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 Results Result Diagram: 04/03/17 0641 04/03/17 0641 Results 24 hrs Laboratory Tests Test 04/02/17 12:55 04/02/17 17:58 04/02/17 20:42 04/03/17 01:57 Bedside Glucose 146 197 244 H 220 Test 04/03/17 06:41 04/03/17 08:52 White Blood Count 8.2 Red Blood Count 4.12 L Hemoglobin 10.4 L Hematocrit 34.2 L Mean Corpuscular Volume 83.0 Mean Corpuscular Hemoglobin 25.2 L Mean Corpuscular Hemoglobin Concent 30.4 L Red Cell Distribution Width 13.9 Platelet Count 276 Mean Platelet Volume 10.9 H Neutrophils % 73.5 Lymphocytes % 15.8 Monocytes % 8.7 Eosinophils % 1.0 Basophils % 0.4 Nucleated Red Blood Cells % 0.0 Neutrophils # 6.0 Lymphocytes # 1.3 Monocytes # 0.7 Eosinophils # 0.1 Basophils # 0.0 Nucleated Red Blood Cells # 0.0 Sodium Level 137 Potassium Level 5.1 Chloride Level 95 L Carbon Dioxide Level 30 Anion Gap 17 H Blood Urea Nitrogen 60 H Creatinine 6.68 H Glucose Level 209 Calcium Level 8.7 Phosphorus Level 5.6 H Magnesium Level 2.2 Albumin 3.4 Bedside Glucose 201 Medications Medications Current Medications Apixaban (Eliquis) 2.5 mg BID PO Last administered on 04/01/17 08:11; Admin Dose 2.5 MG; Start 03/31/17 at 09:00; Status Future Hold Atorvastatin Calcium (Lipitor) 80 mg QHS PO Last administered on 04/02/17 20: 50; Admin Dose 80 MG; Start 03/30/17 at 21:00 Bisacodyl (Dulcolax Supp) 10 mg Q24H PRN [place] CONSTIPATION Last administered on 04/01/17 15:16; Admin Dose 10 MG; Start 03/30/17 at 14:30 Insulin Glargine (Lantus) 10 unit QHS SC Last administered on 04/02/17 20:45 ; Admin Dose 10 UNIT; Start 03/30/17 at 21:00 Lisinopril (Zestril) 2.5 mg BID PO Last administered on 04/03/17 08:53; Admin Dose 2.5 MG; Start 03/30/17 at 21:00 Metoprolol Tartrate (Lopressor) 50 mg BID PO Last administered on 04/03/17 08: 54; Admin Dose 50 MG; Start 03/30/17 at 21:00 Nifedipine (Procardia Xl) 60 mg DAILY PO Last administered on 04/03/17 08:53; Admin Dose 60 MG; Start 03/31/17 at 09:00 Ondansetron HCl (Zofran Inj) 4 mg Q6H PRN IV NAUSEA AND/OR VOMITING; Start at 15:30 Acetaminophen (Tylenol Tab) 650 mg Q6H PRN PO PAIN LEVEL 1-3 OR FEVER; Start 03/30/17 at 15:30 Diagnostic Test (Pha) (Accu-Chek) 1 ea 02 XX Last administered on 04/02/17 01 :50; Admin Dose 1 EA; Start 03/31/17 at 02:00 Miscellaneous Information 1 ea NOTE XX ; Start 03/30/17 at 15:30 Glucose (Glutose) 15 gm Q15M PRN PO DECREASED GLUCOSE; Start 03/30/17 at 15:30 Glucose (Glutose) 22.5 gm Q15M PRN PO DECREASED GLUCOSE; Start 03/30/17 at 15: 30 Dextrose (D50w Syringe) 25 ml Q15M PRN IV DECREASED GLUCOSE; Start 03/30/17 at 15:30 Dextrose (D50w Syringe) 50 ml Q15M PRN IV DECREASED GLUCOSE; Start 03/30/17 at 15:30 Glucagon (Glucagen) 1 mg Q15M PRN IM DECREASED GLUCOSE; Start 03/30/17 at 15: 30 Glucose (Glutose) 15 gm Q15M PRN BUCCAL DECREASED GLUCOSE; Start 03/30/17 at 15:30 Guaifenesin/ Codeine Phosphate (Robitussin Ac Liquid Cup) 5 ml Q4H PRN PO cough ; Start 03/30/17 at 19:30 Lidocaine (Lmx 4% Plus) 1 applic PRN PRN TOP Prior to HD cannulation Last administered on 03/31/17 11:23; Admin Dose 1 APPLIC; Start 03/30/17 at 21:00 Pantoprazole (Protonix Tab) 40 mg DAILY@06 PO Last administered on 04/03/17 05 :28; Admin Dose 40 MG; Start 04/01/17 at 06:00 Heparin Sodium (Porcine) (Heparin (5000 Units/0.5 ml)) 5,000 unit BID SC Last administered on 04/02/17 20:46; Admin Dose 5,000 UNIT; Start 04/01/17 at 21: 00 Senna/Docusate Sodium (Senokot-S) 1 tab DAILY PO ; Start 04/03/17 at 12:00 Mineral Oil (Fleet Mineral Oil Enema) 133 ml DAILY PRN [place] constipation; Start 04/03/17 at 12:00 TRACEY HAWKINS Apr 03, 2017 12:14
[2017-04-03] MEDS: SENNA/DOCUSATE NA (8.6MG/50MG) TAB PO SCH (12:44)
--- NOTE | 2017-04-03 16:23 | CONS ---
Date/Time of Note Date/Time of Note DATE: 04/03/17 TIME: 16:22 Assessment/Plan Assessment/Plan Additional Assessment/Plan 1. Acute hypoxic resp failure due to acute fluid overload and Pleural effusion 2. ESRD on HD -TTS schedule 3. Right hemithorax multiple loculated right pleural effusion s/p Thoracentesis 250 cc drained- pt has multiple pockets of loculated effusion 4. h/o CAD s/p CABG 5/ H/o recent OK and s/p stenting by 6/ HTN 7/ HL Plan: s/p Thoracentesis 250 cc drained, pt has multiple loculations on right lung- s/ p CT surgery evaluation, pt will benefit from VATS procedure, CT surgery asked for cardiology clearance will plan for HD tomorrow and keep pt on Thu, , Thursday schedule. will follow up Consultation Date/Type/Reason Admit Date/Time Mar 30, 2017 at 15:04 Initial Consult Date 03/30/17 Type of Consultation: NEPHROLOGY 24 HR Interval Summary Free Text/Dictation Transferred out of ICU, BP stable, SOB better, plan for HD tomorrow Exam/Review of Systems Vital Signs Vitals Vital Signs Date Time Temp Pulse Resp B/P Pulse Ox O2 Delivery O2 Flow Rate FiO2 04/03/17 12:29 80 04/03/17 12:11 97.9 20 107/59 100 04/03/17 12:05 3.0 04/03/17 08:00 Nasal Cannula 04/02/17 20:16 31 Intake and Output 04/02/17 04/02/17 04/03/17 15:00 23:00 07:00 Intake Total 520 ml 120 ml 150 ml Output Total 3300 ml Balance -2780 ml 120 ml 150 ml Exam Constitutional: alert Head: normocephalic Eyes: nl conjunctiva Neck: non-tender, supple Respiratory: congested cough, crackles/rales, diminished breath sounds, other ( decreased BS on Right Upper and Middle lung ) Cardiovascular: regular rate and rhythm Gastrointestinal: non-tender, soft Musculoskeletal: muscle weakness, other (1-2+ edema ), range of motion 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, nl mental status, nl speech, nl strength Results Result Diagram: 04/03/17 0641 04/03/17 0641 Results 24 hrs Laboratory Tests Test 04/02/17 17:58 04/02/17 20:42 04/03/17 01:57 04/03/17 06:41 Bedside Glucose 197 244 H 220 White Blood Count 8.2 Red Blood Count 4.12 L Hemoglobin 10.4 L Hematocrit 34.2 L Mean Corpuscular Volume 83.0 Mean Corpuscular Hemoglobin 25.2 L Mean Corpuscular Hemoglobin Concent 30.4 L Red Cell Distribution Width 13.9 Platelet Count 276 Mean Platelet Volume 10.9 H Neutrophils % 73.5 Lymphocytes % 15.8 Monocytes % 8.7 Eosinophils % 1.0 Basophils % 0.4 Nucleated Red Blood Cells % 0.0 Neutrophils # 6.0 Lymphocytes # 1.3 Monocytes # 0.7 Eosinophils # 0.1 Basophils # 0.0 Nucleated Red Blood Cells # 0.0 Sodium Level 137 Potassium Level 5.1 Chloride Level 95 L Carbon Dioxide Level 30 Anion Gap 17 H Blood Urea Nitrogen 60 H Creatinine 6.68 H Glucose Level 209 Calcium Level 8.7 Phosphorus Level 5.6 H Magnesium Level 2.2 Albumin 3.4 Test 04/03/17 08:52 04/03/17 12:40 Bedside Glucose 201 204 Medications Medications Current Medications Apixaban (Eliquis) 2.5 mg BID PO Last administered on 04/01/17 08:11; Admin Dose 2.5 MG; Start 03/31/17 at 09:00; Status Future Hold Atorvastatin Calcium (Lipitor) 80 mg QHS PO Last administered on 04/02/17 20: 50; Admin Dose 80 MG; Start 03/30/17 at 21:00 Bisacodyl (Dulcolax Supp) 10 mg Q24H PRN [place] CONSTIPATION Last administered on 04/01/17 15:16; Admin Dose 10 MG; Start 03/30/17 at 14:30 Insulin Glargine (Lantus) 10 unit QHS SC Last administered on 04/02/17 20:45 ; Admin Dose 10 UNIT; Start 03/30/17 at 21:00 Lisinopril (Zestril) 2.5 mg BID PO Last administered on 04/03/17 08:53; Admin Dose 2.5 MG; Start 03/30/17 at 21:00 Metoprolol Tartrate (Lopressor) 50 mg BID PO Last administered on 04/03/17 08: 54; Admin Dose 50 MG; Start 03/30/17 at 21:00 Nifedipine (Procardia Xl) 60 mg DAILY PO Last administered on 04/03/17 08:53; Admin Dose 60 MG; Start 03/31/17 at 09:00 Ondansetron HCl (Zofran Inj) 4 mg Q6H PRN IV NAUSEA AND/OR VOMITING; Start at 15:30 Acetaminophen (Tylenol Tab) 650 mg Q6H PRN PO PAIN LEVEL 1-3 OR FEVER; Start 03/30/17 at 15:30 Diagnostic Test (Pha) (Accu-Chek) 1 ea 02 XX Last administered on 04/02/17 01 :50; Admin Dose 1 EA; Start 03/31/17 at 02:00 Miscellaneous Information 1 ea NOTE XX ; Start 03/30/17 at 15:30 Glucose (Glutose) 15 gm Q15M PRN PO DECREASED GLUCOSE; Start 03/30/17 at 15:30 Glucose (Glutose) 22.5 gm Q15M PRN PO DECREASED GLUCOSE; Start 03/30/17 at 15: 30 Dextrose (D50w Syringe) 25 ml Q15M PRN IV DECREASED GLUCOSE; Start 03/30/17 at 15:30 Dextrose (D50w Syringe) 50 ml Q15M PRN IV DECREASED GLUCOSE; Start 03/30/17 at 15:30 Glucagon (Glucagen) 1 mg Q15M PRN IM DECREASED GLUCOSE; Start 03/30/17 at 15: 30 Glucose (Glutose) 15 gm Q15M PRN BUCCAL DECREASED GLUCOSE; Start 03/30/17 at 15:30 Guaifenesin/ Codeine Phosphate (Robitussin Ac Liquid Cup) 5 ml Q4H PRN PO cough ; Start 03/30/17 at 19:30 Lidocaine (Lmx 4% Plus) 1 applic PRN PRN TOP Prior to HD cannulation Last administered on 03/31/17 11:23; Admin Dose 1 APPLIC; Start 03/30/17 at 21:00 Pantoprazole (Protonix Tab) 40 mg DAILY@06 PO Last administered on 04/03/17 05 :28; Admin Dose 40 MG; Start 04/01/17 at 06:00 Heparin Sodium (Porcine) (Heparin (5000 Units/0.5 ml)) 5,000 unit BID SC Last administered on 04/03/17 12:03; Admin Dose 5,000 UNIT; Start 04/01/17 at 21:00 Senna/Docusate Sodium (Senokot-S) 1 tab DAILY PO Last administered on 12:44; Admin Dose 1 TAB; Start 04/03/17 at 12:00 Mineral Oil (Fleet Mineral Oil Enema) 133 ml DAILY PRN [place] constipation; Start 04/03/17 at 12:00 RAYNE FITCH MD Apr 03, 2017 16:23
--- NOTE | 2017-04-03 19:21 | PN ---
Date/Time of Note Date/Time of Note DATE: 04/03/17 TIME: 19:20 Assessment/Plan Lines/Catheters IV Catheter Type (from Nrsg): Saline Lock Yañez in Place (from Nrsg): No Assessment/Plan Chief Complaint/Hosp Course IMPRESSION: Right-sided pleural effusion which appears to be loculated. RECOMMENDATIONS: This patient would benefit from video-assisted thoracic surgery and decortication. Considering the patient's cardiac history, this needs to be done after cardiology clearance. and pt has been off of plavix for 3 to 4 days Plan for surgery on Thursday Discussed with the family. Risk and benefits explained Will discuss with the referring physicians. Problems: Subjective 24 Hr Interval Summary Constitutional: improved Pain Control: mild Exam/Review of Systems Vital Signs Vitals Vital Signs Date Time Temp Pulse Resp B/P Pulse Ox O2 Delivery O2 Flow Rate FiO2 04/03/17 16:57 79 04/03/17 16:00 98.0 19 145/65 90 04/03/17 12:05 3.0 04/03/17 08:00 Nasal Cannula 04/02/17 20:16 31 Intake and Output 04/02/17 04/02/17 04/03/17 15:00 23:00 07:00 Intake Total 520 ml 120 ml 150 ml Output Total 3300 ml Balance -2780 ml 120 ml 150 ml Exam ENMT: mucosa pink and moist, nl external ears & nose, nl lips & teeth, nl nasal mucosa & septum Neck: non-tender, supple Respiratory: clear to auscultation, normal air movement Cardiovascular: nl pulses, regular rate and rhythm Results Result Diagram: 04/03/17 0641 04/03/17 0641 SHAYLA YAÑEZ MD Apr 03, 2017 19:21
[2017-04-03] MEDS: ATORVASTATIN 80 MG TAB PO SCH (21:38)
[2017-04-03] MEDS: INSULIN GLARGINE [LANtus] 3 ML PEN SC SCH (21:40)
[2017-04-04] VITALS (20 sets, daily range): BP systolic 100–168; BP diastolic 40–76; PULSE 70–98; RESP 16–20
[2017-04-04] MEDS: ACCU-CHEK XX SCH (02:10)
[2017-04-04] MEDS: PANTOPRAZOLE (EC) 40 MG TAB PO SCH (06:23)
[2017-04-04 07:58] LABS: ALBUMIN 3.5 g/dl (3.3-4.9); CALCIUM 8.7 mg/dl (8.4-10.2); CREATININE 5.91 mg/dl (0.61-1.24); MAGNESIUM 2.1 mg/dl (1.7-2.5); PHOSPHORUS 4.7 mg/dl (2.5-4.9)
[2017-04-04] MEDS: SEVELAMER CARBONATE 0.8 GM PKT PO SCH ×4 (08:00→17:27)
[2017-04-04] MEDS: INSULIN ASPART [NOVOLOG] 3 ML PEN SC SCH ×5 (08:00→21:49)
[2017-04-04] MEDS: METOPROLOL 50 MG TAB PO SCH ×2 (09:00→21:00)
[2017-04-04] MEDS: SENNA/DOCUSATE NA (8.6MG/50MG) TAB PO SCH ×2 (09:00→10:08)
[2017-04-04] MEDS: LISINOPRIL 5 MG TAB PO SCH ×2 (09:00→21:46)
[2017-04-04] MEDS: NIFEdipine (XL) 60 MG TAB PO SCH (09:00)
[2017-04-04] MEDS: ALBUTEROL 0.083% (NEB) 2.5 MG/3 ML AMP HHN SCH ×4 (09:31→20:38)
[2017-04-04 09:42] LABS: BASOPHILS % 0.5 % (0.0-2.0); EOSINOPHILS # 0.1 10^3/ul (0.0-0.5); EOSINOPHILS % 0.8 % (0.0-7.0); HEMATOCRIT 33.3 % (42.0-52.0); HEMOGLOBIN 10.4 g/dl (14.0-18.0); LYMPHOCYTES # 0.9 10^3/ul (0.8-2.9); LYMPHOCYTES % 14.1 % (15.0-51.0); MEAN CORPUSCULAR HEMOGLOBIN 25.1 pg (29.0-33.0); MEAN CORPUSCULAR HGB CONC 31.2 g/dl (32.0-37.0); MEAN CORPUSCULAR VOLUME 80.4 fl (82.0-101.0); MONOCYTE # 0.4 10^3/ul (0.3-0.9); MONOCYTES % 5.9 % (0.0-11.0); NEUTROPHIL # 4.8 10^3/ul (1.6-7.5); PLATELET COUNT 259 10^3/UL (140-415); RED BLOOD COUNT 4.14 10^6/ul (4.70-6.10); RED CELL DISTRIBUTION WIDTH 13.8 % (11.5-14.5); WHITE BLOOD COUNT 6.1 10^3/ul (4.8-10.8)
[2017-04-04] MEDS: HEPARIN 5,000 UNIT/0.5 ML VIAL SC SCH ×2 (10:22→21:47)
--- NOTE | 2017-04-04 10:42 | PN ---
Date/Time of Note Date/Time of Note DATE: 04/04/17 TIME: 10:41 Assessment/Plan Lines/Catheters IV Catheter Type (from Nrsg): Saline Lock Yañez in Place (from Nrsg): No Assessment/Plan Chief Complaint/Hosp Course IMPRESSION: Right-sided pleural effusion which appears to be loculated. RECOMMENDATIONS: This patient would benefit from video-assisted thoracic surgery and decortication. Considering the patient's cardiac history, this needs to be done after cardiology clearance. and pt has been off of plavix Plan for surgery on Thursday Discussed with the family. Risk and benefits explained Will discuss with the referring physicians. Problems: Subjective 24 Hr Interval Summary Constitutional: improved Pain Control: mild Exam/Review of Systems Vital Signs Vitals Vital Signs Date Time Temp Pulse Resp B/P Pulse Ox O2 Delivery O2 Flow Rate FiO2 04/04/17 09:34 82 20 98 Nasal Cannula 2.0 04/04/17 07:48 98.5 104/46 04/02/17 20:16 31 Intake and Output 04/03/17 04/03/17 04/04/17 15:00 23:00 07:00 Intake Total 400 ml Balance 400 ml Exam ENMT: mucosa pink and moist, nl external ears & nose, nl lips & teeth, nl nasal mucosa & septum Neck: non-tender, supple Respiratory: clear to auscultation, normal air movement Cardiovascular: nl pulses, regular rate and rhythm Gastrointestinal: nl liver, spleen, non-tender, soft Results Result Diagram: 04/04/17 0715 04/04/17 0715 SHAYLA YAÑEZ MD Apr 04, 2017 10:42
--- NOTE | 2017-04-04 13:58 | PN ---
Date/Time of Note Date/Time of Note DATE: 04/04/17 TIME: 13:53 Assessment/Plan VTE Prophylaxis VTE Prophylaxis Intervention: heparin Lines/Catheters IV Catheter Type (from Nrs): Saline Lock Urinary Cath still in place: No Assessment/Plan Assessment/Plan 1. Acute hypoxic respiratory failure secondary to pleural effusion in right lung - improving - Patient remains stable respiratory brewer and saturating >90% on NC - CT surgery on board and plans for VATS and decortication on . Plavix held with last dose given on 04/01 - Cardiology clearance obtained and okay to hold Plavix and Eliquis prior to VATS. Currently has Heparin on board and will hold after midnight tmrw - Repeat CXR yesterday showed stable complete opacification of the right hemithorax, likely corresponding to complete atelectasis/consolidation of the right lung and pleural effusion. - HRCT chest shows large right pleural effusion but appeared to have multiple loculated pockets on US - Pulmonology consultation appreciated - Bronchodilators as needed 2. Large Right pleural effusion s/p thoracentesis 03/30 - 250 cc of fluid was removed but CXR still showed complete white out of right lung - Pulm on board and consultation appreciated 3. Acute on chronic CHF - Last ECHO 10/2016 showed EF 65% with stage 1 diastolic dysfunction - Monitor I/O and daily weights - CXR shows cardiomegaly - Cardiology consultation appreciated and cleared for VATS on thursday 4. ESRD on HD - patient on scheduled - Nephrology consultation appreciated 5. Hypertensive urgency - BP controlled on home medications 6. DM, type 2 - Continue home insulin regime - ISS and accuchecks - Will adjust as needed - A1c 6.9 7. Heart block/bradycardia with PPM - cardiology on board 8. CAD s/p stent 10/2016 - continue on home medications - Holding Plavix 9. Atrial fibrillation - on BB, Eliquis on hold - rate controlled 10. Oliguria - voided yesterday - Lasix 80mg IV 11. Constipation - Senna S given and family would like to hold off on suppository at this time. 12. Disposition - scheduled for VATS on Thursday - NPO after midnight and hold Heparin Subjective 24 Hr Interval Summary Free Text/Dictation Patient resting comfortably and complaining of weakness/fatigue. No acute overnight events and no new complaints. Exam/Review of Systems Vital Signs Vitals Vital Signs Date Time Temp Pulse Resp B/P Pulse Ox O2 Delivery O2 Flow Rate FiO2 04/04/17 13:43 96 20 97 Nasal Cannula 2.0 04/04/17 11:42 98.5 100/53 04/02/17 20:16 31 Intake and Output 04/03/17 04/03/17 04/04/17 14:59 22:59 06:59 Intake Total 400 ml Balance 400 ml Exam General: Patient is laying in bed and answers questions appropriately, no acute respiratory distress Mentation: Patient is alert and oriented 4, Head: Normocephalic atraumatic Neck: Supple, nontender, midline Respiratory: diminished breath sounds on right, faint crackles on left Cardiovascular: regular rate and rhythm, no obvious murmurs Gastrointestinal: non-tender to palpation, bowel sounds heard. non distended. no rebound or guarding. no suprapubic discomfort Neurological: Moves all extremities spontaneously Skin: no rashes, ecchymosis Results Result Diagram: 04/04/1715 04/04/17 0715 Results 24 hrs Laboratory Tests Test 04/03/17 17:13 04/03/17 21:32 04/04/17 02:08 04/04/17 07:15 Bedside Glucose 197 209 244 H White Blood Count 6.1 # Red Blood Count 4.14 L Hemoglobin 10.4 L Hematocrit 33.3 L Mean Corpuscular Volume 80.4 L Mean Corpuscular Hemoglobin 25.1 L Mean Corpuscular Hemoglobin Concent 31.2 L Red Cell Distribution Width 13.8 Platelet Count 259 Mean Platelet Volume 11.0 H Neutrophils % 78.0 H Lymphocytes % 14.1 L Monocytes % 5.9 Eosinophils % 0.8 Basophils % 0.5 Nucleated Red Blood Cells % 0.0 Neutrophils # 4.8 Lymphocytes # 0.9 Monocytes # 0.4 Eosinophils # 0.1 Basophils # 0.0 Nucleated Red Blood Cells # 0.0 Sodium Level 137 Potassium Level 4.0 Chloride Level 94 L Carbon Dioxide Level 29 Anion Gap 18 H Blood Urea Nitrogen 58 H Creatinine 5.91 H Glucose Level 189 Calcium Level 8.7 Phosphorus Level 4.7 Magnesium Level 2.1 Albumin 3.5 Test 04/04/17 08:01 04/04/17 10:07 04/04/17 13:00 Bedside Glucose 174 201 258 H Medications Medications Current Medications Apixaban (Eliquis) 2.5 mg BID PO Last administered on 04/01/17 08:11; Admin Dose 2.5 MG; Start 03/31/17 at 09:00; Status Future Hold Atorvastatin Calcium (Lipitor) 80 mg QHS PO Last administered on 04/03/17 21: 38; Admin Dose 80 MG; Start 03/30/17 at 21:00 Bisacodyl (Dulcolax Supp) 10 mg Q24H PRN [place] CONSTIPATION Last administered on 04/01/17 15:16; Admin Dose 10 MG; Start 03/30/17 at 14:30 Insulin Glargine (Lantus) 10 unit QHS SC Last administered on 04/03/17 21:40; Admin Dose 10 UNIT; Start 03/30/17 at 21:00 Lisinopril (Zestril) 2.5 mg BID PO Last administered on 04/03/17 08:53; Admin Dose 2.5 MG; Start 03/30/17 at 21:00 Metoprolol Tartrate (Lopressor) 50 mg BID PO Last administered on 04/03/17 08: 54; Admin Dose 50 MG; Start 03/30/17 at 21:00 Nifedipine (Procardia Xl) 60 mg DAILY PO Last administered on 04/03/17 08:53; Admin Dose 60 MG; Start 03/31/17 at 09:00 Ondansetron HCl (Zofran Inj) 4 mg Q6H PRN IV NAUSEA AND/OR VOMITING; Start at 15:30 Acetaminophen (Tylenol Tab) 650 mg Q6H PRN PO PAIN LEVEL 1-3 OR FEVER; Start 03/30/17 at 15:30 Diagnostic Test (Pha) (Accu-Chek) 1 ea 02 XX Last administered on 04/04/17 02: 10; Admin Dose 1 EA; Start 03/31/17 at 02:00 Miscellaneous Information 1 ea NOTE XX ; Start 03/30/17 at 15:30 Glucose (Glutose) 15 gm Q15M PRN PO DECREASED GLUCOSE; Start 03/30/17 at 15:30 Glucose (Glutose) 22.5 gm Q15M PRN PO DECREASED GLUCOSE; Start 03/30/17 at 15: 30 Dextrose (D50w Syringe) 25 ml Q15M PRN IV DECREASED GLUCOSE; Start 03/30/17 at 15:30 Dextrose (D50w Syringe) 50 ml Q15M PRN IV DECREASED GLUCOSE; Start 03/30/17 at 15:30 Glucagon (Glucagen) 1 mg Q15M PRN IM DECREASED GLUCOSE; Start 03/30/17 at 15: 30 Glucose (Glutose) 15 gm Q15M PRN BUCCAL DECREASED GLUCOSE; Start 03/30/17 at 15:30 Guaifenesin/ Codeine Phosphate (Robitussin Ac Liquid Cup) 5 ml Q4H PRN PO cough ; Start 03/30/17 at 19:30 Lidocaine (Lmx 4% Plus) 1 applic PRN PRN TOP Prior to HD cannulation Last administered on 03/31/17 11:23; Admin Dose 1 APPLIC; Start 03/30/17 at 21:00 Pantoprazole (Protonix Tab) 40 mg DAILY@06 PO Last administered on 04/04/17 06 :23; Admin Dose 40 MG; Start 04/01/17 at 06:00 Heparin Sodium (Porcine) (Heparin (5000 Units/0.5 ml)) 5,000 unit BID SC Last administered on 04/04/17 10:22; Admin Dose 5,000 UNIT; Start 04/01/17 at 21:00 Senna/Docusate Sodium (Senokot-S) 1 tab DAILY PO Last administered on 10:08; Admin Dose 1 TAB; Start 04/03/17 at 12:00 Mineral Oil (Fleet Mineral Oil Enema) 133 ml DAILY PRN [place] constipation; Start 04/03/17 at 12:00 JAE RAHMAN MD Apr 04, 2017 13:57
--- NOTE | 2017-04-04 14:27 | CONS ---
Date/Time of Note Date/Time of Note DATE: 04/04/17 TIME: 14:25 Consult Date/Type/Reason Admit Date/Time Mar 30, 2017 at 15:04 Initial Consult Date 03/30/17 Type of Consultation: Pulm Subjective no events. Objective Vital Signs Date Time Temp Pulse Resp B/P Pulse Ox O2 Delivery O2 Flow Rate FiO2 04/04/17 13:43 96 20 97 Nasal Cannula 2.0 04/04/17 11:42 98.5 100/53 04/02/17 20:16 31 Intake and Output 04/03/17 04/03/17 04/04/17 14:59 22:59 06:59 Intake Total 400 ml Balance 400 ml Exam HEENT: Neck supple; no JVD; no LAD CVS: RRR, S1 and S2 CHEST: Absent R BS ABD: Soft, NT, + BS EXT: No c/c/e Results/Medications Result Diagram: 04/04/17 0715 04/04/17 0715 Results 24 hrs Laboratory Tests Test 04/03/17 17:13 04/03/17 21:32 04/04/17 02:08 04/04/17 07:15 Bedside Glucose 197 209 244 H White Blood Count 6.1 # Red Blood Count 4.14 L Hemoglobin 10.4 L Hematocrit 33.3 L Mean Corpuscular Volume 80.4 L Mean Corpuscular Hemoglobin 25.1 L Mean Corpuscular Hemoglobin Concent 31.2 L Red Cell Distribution Width 13.8 Platelet Count 259 Mean Platelet Volume 11.0 H Neutrophils % 78.0 H Lymphocytes % 14.1 L Monocytes % 5.9 Eosinophils % 0.8 Basophils % 0.5 Nucleated Red Blood Cells % 0.0 Neutrophils # 4.8 Lymphocytes # 0.9 Monocytes # 0.4 Eosinophils # 0.1 Basophils # 0.0 Nucleated Red Blood Cells # 0.0 Sodium Level 137 Potassium Level 4.0 Chloride Level 94 L Carbon Dioxide Level 29 Anion Gap 18 H Blood Urea Nitrogen 58 H Creatinine 5.91 H Glucose Level 189 Calcium Level 8.7 Phosphorus Level 4.7 Magnesium Level 2.1 Albumin 3.5 Test 04/04/17 08:01 04/04/17 10:07 04/04/17 13:00 Bedside Glucose 174 201 258 H Medications Current Medications Apixaban (Eliquis) 2.5 mg BID PO Last administered on 04/01/17 08:11; Admin Dose 2.5 MG; Start 03/31/17 at 09:00; Status Future Hold Atorvastatin Calcium (Lipitor) 80 mg QHS PO Last administered on 04/03/17 21: 38; Admin Dose 80 MG; Start 03/30/17 at 21:00 Bisacodyl (Dulcolax Supp) 10 mg Q24H PRN [place] CONSTIPATION Last administered on 04/01/17 15:16; Admin Dose 10 MG; Start 03/30/17 at 14:30 Insulin Glargine (Lantus) 10 unit QHS SC Last administered on 04/03/17 21:40; Admin Dose 10 UNIT; Start 03/30/17 at 21:00 Lisinopril (Zestril) 2.5 mg BID PO Last administered on 04/03/17 08:53; Admin Dose 2.5 MG; Start 03/30/17 at 21:00 Metoprolol Tartrate (Lopressor) 50 mg BID PO Last administered on 04/03/17 08: 54; Admin Dose 50 MG; Start 03/30/17 at 21:00 Nifedipine (Procardia Xl) 60 mg DAILY PO Last administered on 04/03/17 08:53; Admin Dose 60 MG; Start 03/31/17 at 09:00 Ondansetron HCl (Zofran Inj) 4 mg Q6H PRN IV NAUSEA AND/OR VOMITING; Start at 15:30 Acetaminophen (Tylenol Tab) 650 mg Q6H PRN PO PAIN LEVEL 1-3 OR FEVER; Start 03/30/17 at 15:30 Diagnostic Test (Pha) (Accu-Chek) 1 ea 02 XX Last administered on 04/04/17 02: 10; Admin Dose 1 EA; Start 03/31/17 at 02:00 Miscellaneous Information 1 ea NOTE XX ; Start 03/30/17 at 15:30 Glucose (Glutose) 15 gm Q15M PRN PO DECREASED GLUCOSE; Start 03/30/17 at 15:30 Glucose (Glutose) 22.5 gm Q15M PRN PO DECREASED GLUCOSE; Start 03/30/17 at 15: 30 Dextrose (D50w Syringe) 25 ml Q15M PRN IV DECREASED GLUCOSE; Start 03/30/17 at 15:30 Dextrose (D50w Syringe) 50 ml Q15M PRN IV DECREASED GLUCOSE; Start 03/30/17 at 15:30 Glucagon (Glucagen) 1 mg Q15M PRN IM DECREASED GLUCOSE; Start 03/30/17 at 15: 30 Glucose (Glutose) 15 gm Q15M PRN BUCCAL DECREASED GLUCOSE; Start 03/30/17 at 15:30 Guaifenesin/ Codeine Phosphate (Robitussin Ac Liquid Cup) 5 ml Q4H PRN PO cough ; Start 03/30/17 at 19:30 Lidocaine (Lmx 4% Plus) 1 applic PRN PRN TOP Prior to HD cannulation Last administered on 03/31/17 11:23; Admin Dose 1 APPLIC; Start 03/30/17 at 21:00 Pantoprazole (Protonix Tab) 40 mg DAILY@06 PO Last administered on 04/04/17 06 :23; Admin Dose 40 MG; Start 04/01/17 at 06:00 Heparin Sodium (Porcine) (Heparin (5000 Units/0.5 ml)) 5,000 unit BID SC Last administered on 04/04/17 10:22; Admin Dose 5,000 UNIT; Start 04/01/17 at 21:00 Senna/Docusate Sodium (Senokot-S) 1 tab DAILY PO Last administered on 10:08; Admin Dose 1 TAB; Start 04/03/17 at 12:00 Mineral Oil (Fleet Mineral Oil Enema) 133 ml DAILY PRN [place] constipation; Start 04/03/17 at 12:00 Assessment/Plan Additional Assessment/Plan IMP: 1. Massive right lymphocytic/neutrophilic exudative effusion--most concerning for malignancy. RECS: 1. The CT does not show loculations though noted on U/S. In view of the patients risk factors, a large bore chest tube placement would be reasonable. Pleural fluid to cytologic analysis. BIBI SALEH MD Apr 04, 2017 14:27
--- NOTE | 2017-04-04 16:36 | CONS ---
Date/Time of Note Date/Time of Note DATE: 04/04/17 TIME: 16:34 Assessment/Plan Assessment/Plan Additional Assessment/Plan 1. Acute hypoxic resp failure due to acute fluid overload and Pleural effusion 2. ESRD on HD -TTS schedule 3. Right hemithorax multiple loculated right pleural effusion s/p Thoracentesis 250 cc drained- pt has multiple pockets of loculated effusion 4. h/o CAD s/p CABG 5/ H/o recent PA and s/p stenting by 6/ HTN 7/ HL Plan: s/p Thoracentesis 250 cc drained, pt has multiple loculations on right lung- s/ p CT surgery evaluation, plan for possible VATS on Thursday, Plavix and Eliquis has been on Hold s/p HD today 2.5 L removed, will keep pt on Thu, , Thursday schedule. will follow up Consultation Date/Type/Reason Admit Date/Time Mar 30, 2017 at 15:04 Initial Consult Date 03/30/17 Type of Consultation: NEPHROLOGY 24 HR Interval Summary Free Text/Dictation Remains stable, possible plan for VATs on Thursday, Plavix and Eliquis has been on hold Exam/Review of Systems Vital Signs Vitals Vital Signs Date Time Temp Pulse Resp B/P Pulse Ox O2 Delivery O2 Flow Rate FiO2 04/04/17 16:13 98 04/04/17 16:04 3.0 04/04/17 15:53 98.6 16 100/40 96 04/04/17 13:43 Nasal Cannula 04/02/17 20:16 31 Intake and Output 04/03/17 04/03/17 04/04/17 15:00 23:00 07:00 Intake Total 400 ml Balance 400 ml Exam Constitutional: alert Head: normocephalic Eyes: nl conjunctiva Neck: non-tender, supple Respiratory: congested cough, crackles/rales, diminished breath sounds, other ( decreased BS on Right Upper and Middle lung ) Cardiovascular: regular rate and rhythm Gastrointestinal: non-tender, soft Musculoskeletal: muscle weakness, other (1-2+ edema ), range of motion Neurological: SSRS REPORT DEVELOPER II-XII intact, nl mental status, nl speech, nl strength Results Result Diagram: 04/04/17 0715 04/04/17 0715 Results 24 hrs Laboratory Tests Test 04/03/17 17:13 04/03/17 21:32 04/04/17 02:08 04/04/17 07:15 Bedside Glucose 197 209 244 H White Blood Count 6.1 # Red Blood Count 4.14 L Hemoglobin 10.4 L Hematocrit 33.3 L Mean Corpuscular Volume 80.4 L Mean Corpuscular Hemoglobin 25.1 L Mean Corpuscular Hemoglobin Concent 31.2 L Red Cell Distribution Width 13.8 Platelet Count 259 Mean Platelet Volume 11.0 H Neutrophils % 78.0 H Lymphocytes % 14.1 L Monocytes % 5.9 Eosinophils % 0.8 Basophils % 0.5 Nucleated Red Blood Cells % 0.0 Neutrophils # 4.8 Lymphocytes # 0.9 Monocytes # 0.4 Eosinophils # 0.1 Basophils # 0.0 Nucleated Red Blood Cells # 0.0 Sodium Level 137 Potassium Level 4.0 Chloride Level 94 L Carbon Dioxide Level 29 Anion Gap 18 H Blood Urea Nitrogen 58 H Creatinine 5.91 H Glucose Level 189 Calcium Level 8.7 Phosphorus Level 4.7 Magnesium Level 2.1 Albumin 3.5 Test 04/04/17 08:01 04/04/17 10:07 04/04/17 13:00 Bedside Glucose 174 201 258 H Medications Medications Current Medications Apixaban (Eliquis) 2.5 mg BID PO Last administered on 04/01/17 08:11; Admin Dose 2.5 MG; Start 03/31/17 at 09:00; Status Future Hold Atorvastatin Calcium (Lipitor) 80 mg QHS PO Last administered on 04/03/17 21: 38; Admin Dose 80 MG; Start 03/30/17 at 21:00 Bisacodyl (Dulcolax Supp) 10 mg Q24H PRN [place] CONSTIPATION Last administered on 04/01/17 15:16; Admin Dose 10 MG; Start 03/30/17 at 14:30 Insulin Glargine (Lantus) 10 unit QHS SC Last administered on 04/03/17 21:40; Admin Dose 10 UNIT; Start 03/30/17 at 21:00 Lisinopril (Zestril) 2.5 mg BID PO Last administered on 04/03/17 08:53; Admin Dose 2.5 MG; Start 03/30/17 at 21:00 Metoprolol Tartrate (Lopressor) 50 mg BID PO Last administered on 04/03/17 08: 54; Admin Dose 50 MG; Start 03/30/17 at 21:00 Nifedipine (Procardia Xl) 60 mg DAILY PO Last administered on 04/03/17 08:53; Admin Dose 60 MG; Start 03/31/17 at 09:00 Ondansetron HCl (Zofran Inj) 4 mg Q6H PRN IV NAUSEA AND/OR VOMITING; Start at 15:30 Acetaminophen (Tylenol Tab) 650 mg Q6H PRN PO PAIN LEVEL 1-3 OR FEVER; Start 03/30/17 at 15:30 Diagnostic Test (Pha) (Accu-Chek) 1 ea 02 XX Last administered on 04/04/17 02: 10; Admin Dose 1 EA; Start 03/31/17 at 02:00 Miscellaneous Information 1 ea NOTE XX ; Start 03/30/17 at 15:30 Glucose (Glutose) 15 gm Q15M PRN PO DECREASED GLUCOSE; Start 03/30/17 at 15:30 Glucose (Glutose) 22.5 gm Q15M PRN PO DECREASED GLUCOSE; Start 03/30/17 at 15: 30 Dextrose (D50w Syringe) 25 ml Q15M PRN IV DECREASED GLUCOSE; Start 03/30/17 at 15:30 Dextrose (D50w Syringe) 50 ml Q15M PRN IV DECREASED GLUCOSE; Start 03/30/17 at 15:30 Glucagon (Glucagen) 1 mg Q15M PRN IM DECREASED GLUCOSE; Start 03/30/17 at 15: 30 Glucose (Glutose) 15 gm Q15M PRN BUCCAL DECREASED GLUCOSE; Start 03/30/17 at 15:30 Guaifenesin/ Codeine Phosphate (Robitussin Ac Liquid Cup) 5 ml Q4H PRN PO cough ; Start 03/30/17 at 19:30 Lidocaine (Lmx 4% Plus) 1 applic PRN PRN TOP Prior to HD cannulation Last administered on 03/31/17 11:23; Admin Dose 1 APPLIC; Start 03/30/17 at 21:00 Pantoprazole (Protonix Tab) 40 mg DAILY@06 PO Last administered on 04/04/17 06 :23; Admin Dose 40 MG; Start 04/01/17 at 06:00 Heparin Sodium (Porcine) (Heparin (5000 Units/0.5 ml)) 5,000 unit BID SC Last administered on 04/04/17 10:22; Admin Dose 5,000 UNIT; Start 04/01/17 at 21:00 Senna/Docusate Sodium (Senokot-S) 1 tab DAILY PO Last administered on 10:08; Admin Dose 1 TAB; Start 04/03/17 at 12:00 Mineral Oil (Fleet Mineral Oil Enema) 133 ml DAILY PRN [place] constipation; Start 04/03/17 at 12:00 RAYNE FITCH MD Apr 04, 2017 16:36
[2017-04-04] MEDS: ATORVASTATIN 80 MG TAB PO SCH (21:46)
[2017-04-04] MEDS: INSULIN GLARGINE [LANtus] 3 ML PEN SC SCH (21:48)
[2017-04-05] VITALS (11 sets, daily range): BP systolic 104–141; BP diastolic 53–63; PULSE 77–88; RESP 16–20
[2017-04-05] MEDS: ACCU-CHEK XX SCH (02:00)
[2017-04-05 06:00] LABS: BASOPHILS % 0.4 % (0.0-2.0); EOSINOPHILS # 0.1 10^3/ul (0.0-0.5); EOSINOPHILS % 1.4 % (0.0-7.0); HEMATOCRIT 33.1 % (42.0-52.0); HEMOGLOBIN 10.3 g/dl (14.0-18.0); LYMPHOCYTES # 1.3 10^3/ul (0.8-2.9); LYMPHOCYTES % 16.6 % (15.0-51.0); MEAN CORPUSCULAR HEMOGLOBIN 25.4 pg (29.0-33.0); MEAN CORPUSCULAR HGB CONC 31.1 g/dl (32.0-37.0); MEAN CORPUSCULAR VOLUME 81.7 fl (82.0-101.0); MEAN PLATELET VOLUME 10.7 fl (7.4-10.4); MONOCYTE # 0.8 10^3/ul (0.3-0.9); MONOCYTES % 9.6 % (0.0-11.0); NEUTROPHIL # 5.8 10^3/ul (1.6-7.5); NEUTROPHILS % 71.3 % (39.0-77.0); PLATELET COUNT 299 10^3/UL (140-415); RED BLOOD COUNT 4.05 10^6/ul (4.70-6.10); RED CELL DISTRIBUTION WIDTH 13.9 % (11.5-14.5); WHITE BLOOD COUNT 8.1 10^3/ul (4.8-10.8)
[2017-04-05] MEDS: PANTOPRAZOLE (EC) 40 MG TAB PO SCH (06:12)
[2017-04-05 06:46] LABS: ALBUMIN 3.6 g/dl (3.3-4.9); CREATININE 7.03 mg/dl (0.61-1.24); MAGNESIUM 2.3 mg/dl (1.7-2.5); PHOSPHORUS 6.2 mg/dl (2.5-4.9); POTASSIUM 4.8 mmol/L (3.5-5.1)
[2017-04-05] MEDS: SEVELAMER CARBONATE 0.8 GM PKT PO SCH ×3 (08:15→17:25)
[2017-04-05] MEDS: SENNA/DOCUSATE NA (8.6MG/50MG) TAB PO SCH (08:15)
[2017-04-05] MEDS: METOPROLOL 50 MG TAB PO SCH ×2 (08:15→20:25)
[2017-04-05] MEDS: LISINOPRIL 5 MG TAB PO SCH ×2 (08:16→20:26)
[2017-04-05] MEDS: NIFEdipine (XL) 60 MG TAB PO SCH (08:16)
[2017-04-05] MEDS: HEPARIN 5,000 UNIT/0.5 ML VIAL SC SCH ×2 (08:17→20:48)
[2017-04-05] MEDS: INSULIN ASPART [NOVOLOG] 3 ML PEN SC SCH ×4 (08:18→20:28)
[2017-04-05] MEDS: ALBUTEROL 0.083% (NEB) 2.5 MG/3 ML AMP HHN SCH ×4 (08:55→20:32)
--- NOTE | 2017-04-05 14:03 | CONS ---
Date/Time of Note Date/Time of Note DATE: 04/05/17 TIME: 14:02 Consult Date/Type/Reason Admit Date/Time Mar 30, 2017 at 15:04 Initial Consult Date 03/30/17 Type of Consultation: Pulm Subjective No events overnight. Objective Vital Signs Date Time Temp Pulse Resp B/P Pulse Ox O2 Delivery O2 Flow Rate FiO2 04/05/17 13:09 85 20 97 Nasal Cannula 2.0 04/05/17 11:59 98.3 120/62 04/02/17 20:16 31 Intake and Output 04/04/17 04/04/17 04/05/17 15:00 23:00 07:00 Intake Total 500 ml 800 ml 700 ml Output Total 3000 ml Balance -2500 ml 800 ml 700 ml Exam HEENT: Neck supple; no JVD; no LAD CVS: RRR, S1 and S2 CHEST: Absent R BS ABD: Soft, NT, + BS EXT: No c/c/e Results/Medications Result Diagram: 04/05/17 0518 04/05/17 0536 Results 24 hrs Laboratory Tests Test 04/04/17 17:26 04/04/17 21:42 04/05/17 01:58 04/05/17 05:18 Bedside Glucose 287 H 290 H 246 H White Blood Count 8.1 # Red Blood Count 4.05 L Hemoglobin 10.3 L Hematocrit 33.1 L Mean Corpuscular Volume 81.7 L Mean Corpuscular Hemoglobin 25.4 L Mean Corpuscular Hemoglobin Concent 31.1 L Red Cell Distribution Width 13.9 Platelet Count 299 Mean Platelet Volume 10.7 H Neutrophils % 71.3 Lymphocytes % 16.6 Monocytes % 9.6 Eosinophils % 1.4 Basophils % 0.4 Nucleated Red Blood Cells % 0.0 Neutrophils # 5.8 Lymphocytes # 1.3 Monocytes # 0.8 Eosinophils # 0.1 Basophils # 0.0 Nucleated Red Blood Cells # 0.0 Test 04/05/17 05:36 04/05/17 08:14 04/05/17 12:16 Sodium Level 139 Potassium Level 4.8 Chloride Level 94 L Carbon Dioxide Level 31 Anion Gap 19 H Blood Urea Nitrogen 61 H Creatinine 7.03 H Glucose Level 214 Calcium Level 9.0 Phosphorus Level 6.2 H Magnesium Level 2.3 Albumin 3.6 Bedside Glucose 235 H 240 H Medications Current Medications Apixaban (Eliquis) 2.5 mg BID PO Last administered on 04/01/17 08:11; Admin Dose 2.5 MG; Start 03/31/17 at 09:00; Status Future Hold Atorvastatin Calcium (Lipitor) 80 mg QHS PO Last administered on 04/04/17 21: 46; Admin Dose 80 MG; Start 03/30/17 at 21:00 Bisacodyl (Dulcolax Supp) 10 mg Q24H PRN [place] CONSTIPATION Last administered on 04/01/17 15:16; Admin Dose 10 MG; Start 03/30/17 at 14:30 Insulin Glargine (Lantus) 10 unit QHS SC Last administered on 04/04/17 21:48; Admin Dose 10 UNIT; Start 03/30/17 at 21:00 Lisinopril (Zestril) 2.5 mg BID PO Last administered on 04/05/17 08:16; Admin Dose 2.5 MG; Start 03/30/17 at 21:00 Metoprolol Tartrate (Lopressor) 50 mg BID PO Last administered on 04/05/17 08: 15; Admin Dose 50 MG; Start 03/30/17 at 21:00 Nifedipine (Procardia Xl) 60 mg DAILY PO Last administered on 04/05/17 08:16; Admin Dose 60 MG; Start 03/31/17 at 09:00 Ondansetron HCl (Zofran Inj) 4 mg Q6H PRN IV NAUSEA AND/OR VOMITING; Start at 15:30 Acetaminophen (Tylenol Tab) 650 mg Q6H PRN PO PAIN LEVEL 1-3 OR FEVER; Start 03/30/17 at 15:30 Diagnostic Test (Pha) (Accu-Chek) 1 ea 02 XX Last administered on 04/04/17 02: 10; Admin Dose 1 EA; Start 03/31/17 at 02:00 Miscellaneous Information 1 ea NOTE XX ; Start 03/30/17 at 15:30 Glucose (Glutose) 15 gm Q15M PRN PO DECREASED GLUCOSE; Start 03/30/17 at 15:30 Glucose (Glutose) 22.5 gm Q15M PRN PO DECREASED GLUCOSE; Start 03/30/17 at 15: 30 Dextrose (D50w Syringe) 25 ml Q15M PRN IV DECREASED GLUCOSE; Start 03/30/17 at 15:30 Dextrose (D50w Syringe) 50 ml Q15M PRN IV DECREASED GLUCOSE; Start 03/30/17 at 15:30 Glucagon (Glucagen) 1 mg Q15M PRN IM DECREASED GLUCOSE; Start 03/30/17 at 15: 30 Glucose (Glutose) 15 gm Q15M PRN BUCCAL DECREASED GLUCOSE; Start 03/30/17 at 15:30 Guaifenesin/ Codeine Phosphate (Robitussin Ac Liquid Cup) 5 ml Q4H PRN PO cough ; Start 03/30/17 at 19:30 Lidocaine (Lmx 4% Plus) 1 applic PRN PRN TOP Prior to HD cannulation Last administered on 03/31/17 11:23; Admin Dose 1 APPLIC; Start 03/30/17 at 21:00 Pantoprazole (Protonix Tab) 40 mg DAILY@06 PO Last administered on 04/05/17 06 :12; Admin Dose 40 MG; Start 04/01/17 at 06:00 Heparin Sodium (Porcine) (Heparin (5000 Units/0.5 ml)) 5,000 unit BID SC Last administered on 04/05/17 08:17; Admin Dose 5,000 UNIT; Start 04/01/17 at 21:00 Senna/Docusate Sodium (Senokot-S) 1 tab DAILY PO Last administered on 08:15; Admin Dose 1 TAB; Start 04/03/17 at 12:00 Mineral Oil (Fleet Mineral Oil Enema) 133 ml DAILY PRN [place] constipation; Start 04/03/17 at 12:00 Assessment/Plan Additional Assessment/Plan IMP: 1. Massive right lymphocytic/neutrophilic-predominant exudative effusion--most concerning for malignancy. RECS: 1. The CT does not show loculations though numerous noted on U/S. In view of the patients risk factors, a large bore chest tube placement would be a reasonable 1st approach. 2. Pleural fluid to cytologic analysis. BIBI SALEH MD Apr 05, 2017 14:03
--- NOTE | 2017-04-05 14:26 | PN ---
Date/Time of Note Date/Time of Note DATE: 04/05/17 TIME: 14:18 Assessment/Plan VTE Prophylaxis VTE Prophylaxis Intervention: SCD's Lines/Catheters IV Catheter Type (from Nrsg): Mid Line Urinary Cath still in place: No Assessment/Plan Assessment/Plan 1. Acute hypoxic respiratory failure secondary to pleural effusion in right lung - improving - Plans for VATS tomorrow and per Dr. Huerta would ideally like to perform HD prior to the procedure to ensure patient close to dry weight to assist with extubation after procedure - Patient remains stable respiratory brewer and saturating >90% on NC - CT surgery on board and appreciate consultation. VATS tmrw and will keep NPO after midnight - Cardiology clearance obtained and okay to hold Plavix and Eliquis prior to VATS. Currently has Heparin on board and will hold after midnight - HRCT chest shows large right pleural effusion but appeared to have multiple loculated pockets on US - Pulmonology consultation appreciated. recommending large bore chest tube - Bronchodilators as needed 2. Large Right pleural effusion s/p thoracentesis 03/30 - 250 cc of fluid was removed but CXR still showed complete white out of right lung - Pulm on board and consultation appreciated 3. Acute on chronic CHF - Last ECHO 10/2016 showed EF 65% with stage 1 diastolic dysfunction - Monitor I/O and daily weights - CXR shows cardiomegaly - Cardiology consultation appreciated and cleared for VATS on Thursday 4. ESRD on HD - patient on scheduled - Nephrology consultation appreciated 5. Hypertensive urgency - BP controlled on home medications 6. DM, type 2 - Will increase lantus dosing to 12 units - ISS and accuchecks - A1c 6.9 7. Heart block/bradycardia with PPM - cardiology on board 8. CAD s/p stent 10/2016 - continue on home medications - Holding Plavix 9. Atrial fibrillation - on BB, Eliquis on hold - rate controlled 10. Oliguria - voided small amount yesterday - Lasix 80mg IV 11. Constipation - given Senna S and suppository. Will try mineral oil enema 12. Disposition - scheduled for VATS tmrw - NPO after midnight and hold Heparin Subjective 24 Hr Interval Summary Free Text/Dictation patient has not had a BM and only has small amount of urine production yesterday. No acute overnight events. Exam/Review of Systems Vital Signs Vitals Vital Signs Date Time Temp Pulse Resp B/P Pulse Ox O2 Delivery O2 Flow Rate FiO2 04/05/17 13:09 85 20 97 Nasal Cannula 2.0 04/05/17 11:59 98.3 120/62 04/02/17 20:16 31 Intake and Output 04/04/17 04/04/17 04/05/17 15:00 23:00 07:00 Intake Total 500 ml 800 ml 700 ml Output Total 3000 ml Balance -2500 ml 800 ml 700 ml Exam General: Patient sitting in chair at bedside in no acute distress. Mentation: Patient is alert and oriented 4, Head: Normocephalic atraumatic Neck: Supple, nontender, midline Respiratory: diminished breath sounds on right, faint crackles on left Cardiovascular: regular rate and rhythm, no obvious murmurs Gastrointestinal: non-tender to palpation, bowel sounds heard. non distended. no rebound or guarding. no suprapubic discomfort Neurological: Moves all extremities spontaneously Skin: no rashes, ecchymosis Results Result Diagram: 04/05/17 0518 04/05/17 0536 Results 24 hrs Laboratory Tests Test 04/04/17 17:26 04/04/17 21:42 04/05/17 01:58 04/05/17 05:18 Bedside Glucose 287 H 290 H 246 H White Blood Count 8.1 # Red Blood Count 4.05 L Hemoglobin 10.3 L Hematocrit 33.1 L Mean Corpuscular Volume 81.7 L Mean Corpuscular Hemoglobin 25.4 L Mean Corpuscular Hemoglobin Concent 31.1 L Red Cell Distribution Width 13.9 Platelet Count 299 Mean Platelet Volume 10.7 H Neutrophils % 71.3 Lymphocytes % 16.6 Monocytes % 9.6 Eosinophils % 1.4 Basophils % 0.4 Nucleated Red Blood Cells % 0.0 Neutrophils # 5.8 Lymphocytes # 1.3 Monocytes # 0.8 Eosinophils # 0.1 Basophils # 0.0 Nucleated Red Blood Cells # 0.0 Test 04/05/17 05:36 04/05/17 08:14 04/05/17 12:16 Sodium Level 139 Potassium Level 4.8 Chloride Level 94 L Carbon Dioxide Level 31 Anion Gap 19 H Blood Urea Nitrogen 61 H Creatinine 7.03 H Glucose Level 214 Calcium Level 9.0 Phosphorus Level 6.2 H Magnesium Level 2.3 Albumin 3.6 Bedside Glucose 235 H 240 H Medications Medications Current Medications Apixaban (Eliquis) 2.5 mg BID PO Last administered on 04/01/17 08:11; Admin Dose 2.5 MG; Start 03/31/17 at 09:00; Status Future Hold Atorvastatin Calcium (Lipitor) 80 mg QHS PO Last administered on 04/04/17 21: 46; Admin Dose 80 MG; Start 03/30/17 at 21:00 Bisacodyl (Dulcolax Supp) 10 mg Q24H PRN [place] CONSTIPATION Last administered on 04/01/17 15:16; Admin Dose 10 MG; Start 03/30/17 at 14:30 Insulin Glargine (Lantus) 10 unit QHS SC Last administered on 04/04/17 21:48; Admin Dose 10 UNIT; Start 03/30/17 at 21:00 Lisinopril (Zestril) 2.5 mg BID PO Last administered on 04/05/17 08:16; Admin Dose 2.5 MG; Start 03/30/17 at 21:00 Metoprolol Tartrate (Lopressor) 50 mg BID PO Last administered on 04/05/17 08: 15; Admin Dose 50 MG; Start 03/30/17 at 21:00 Nifedipine (Procardia Xl) 60 mg DAILY PO Last administered on 04/05/17 08:16; Admin Dose 60 MG; Start 03/31/17 at 09:00 Ondansetron HCl (Zofran Inj) 4 mg Q6H PRN IV NAUSEA AND/OR VOMITING; Start at 15:30 Acetaminophen (Tylenol Tab) 650 mg Q6H PRN PO PAIN LEVEL 1-3 OR FEVER; Start 03/30/17 at 15:30 Diagnostic Test (Pha) (Accu-Chek) 1 ea 02 XX Last administered on 04/04/17 02: 10; Admin Dose 1 EA; Start 03/31/17 at 02:00 Miscellaneous Information 1 ea NOTE XX ; Start 03/30/17 at 15:30 Glucose (Glutose) 15 gm Q15M PRN PO DECREASED GLUCOSE; Start 03/30/17 at 15:30 Glucose (Glutose) 22.5 gm Q15M PRN PO DECREASED GLUCOSE; Start 03/30/17 at 15: 30 Dextrose (D50w Syringe) 25 ml Q15M PRN IV DECREASED GLUCOSE; Start 03/30/17 at 15:30 Dextrose (D50w Syringe) 50 ml Q15M PRN IV DECREASED GLUCOSE; Start 03/30/17 at 15:30 Glucagon (Glucagen) 1 mg Q15M PRN IM DECREASED GLUCOSE; Start 03/30/17 at 15: 30 Glucose (Glutose) 15 gm Q15M PRN BUCCAL DECREASED GLUCOSE; Start 03/30/17 at 15:30 Guaifenesin/ Codeine Phosphate (Robitussin Ac Liquid Cup) 5 ml Q4H PRN PO cough ; Start 03/30/17 at 19:30 Lidocaine (Lmx 4% Plus) 1 applic PRN PRN TOP Prior to HD cannulation Last administered on 03/31/17 11:23; Admin Dose 1 APPLIC; Start 03/30/17 at 21:00 Pantoprazole (Protonix Tab) 40 mg DAILY@06 PO Last administered on 04/05/17 06 :12; Admin Dose 40 MG; Start 04/01/17 at 06:00 Heparin Sodium (Porcine) (Heparin (5000 Units/0.5 ml)) 5,000 unit BID SC Last administered on 04/05/17 08:17; Admin Dose 5,000 UNIT; Start 04/01/17 at 21:00 Senna/Docusate Sodium (Senokot-S) 1 tab DAILY PO Last administered on 08:15; Admin Dose 1 TAB; Start 04/03/17 at 12:00 Mineral Oil (Fleet Mineral Oil Enema) 133 ml DAILY PRN [place] constipation; Start 04/03/17 at 12:00 JAE RAHMAN MD Apr 05, 2017 14:26
[2017-04-05] MEDS ORDERED: FUROSEMIDE 40 MG INJ IV ONE (14:30)
--- NOTE | 2017-04-05 15:12 | PN ---
Date/Time of Note Date/Time of Note DATE: 04/05/17 TIME: 15:12 Assessment/Plan Lines/Catheters IV Catheter Type (from Nrsg): Mid Line Yañez in Place (from Nrsg): No Assessment/Plan Chief Complaint/Hosp Course IMPRESSION: Right-sided pleural effusion which appears to be loculated. RECOMMENDATIONS: This patient would benefit from video-assisted thoracic surgery and decortication. Considering the patient's cardiac history, this needs to be done after cardiology clearance. and pt has been off of plavix Plan for surgery Tomorrow Discussed with the family. Risk and benefits explained Will discuss with the referring physicians. Problems: Subjective 24 Hr Interval Summary Constitutional: improved Pain Control: mild Exam/Review of Systems Vital Signs Vitals Vital Signs Date Time Temp Pulse Resp B/P Pulse Ox O2 Delivery O2 Flow Rate FiO2 04/05/17 13:09 85 20 97 Nasal Cannula 2.0 04/05/17 11:59 98.3 120/62 04/02/17 20:16 31 Intake and Output 04/04/17 04/04/17 04/05/17 14:59 22:59 06:59 Intake Total 500 ml 800 ml 700 ml Output Total 3000 ml Balance -2500 ml 800 ml 700 ml Exam ENMT: mucosa pink and moist, nl external ears & nose, nl lips & teeth, nl nasal mucosa & septum Neck: non-tender, supple Respiratory: clear to auscultation, normal air movement Cardiovascular: nl pulses, regular rate and rhythm Results Result Diagram: 04/05/17 0518 04/05/17 0536 SHAYLA YAÑEZ MD Apr 05, 2017 15:12
[2017-04-05] MEDS: ATORVASTATIN 80 MG TAB PO SCH (20:25)
[2017-04-05] MEDS: INSULIN GLARGINE [LANtus] 3 ML PEN SC SCH (20:27)
--- NOTE | 2017-04-05 20:30 | CONS ---
Date/Time of Note Date/Time of Note DATE: 04/05/17 TIME: 20:29 Assessment/Plan Assessment/Plan Additional Assessment/Plan 1. Acute hypoxic resp failure due to acute fluid overload and Pleural effusion 2. ESRD on HD -TTS schedule 3. Right hemithorax multiple loculated right pleural effusion s/p Thoracentesis 250 cc drained- pt has multiple pockets of loculated effusion 4. h/o CAD s/p CABG 5/ H/o recent [place] and s/p stenting by 6/ HTN 7/ HL Plan: s/p Thoracentesis 250 cc drained, pt has multiple loculations on right lung- s/ p CT surgery evaluation, plan for possible VATS on Thursday, Plavix and Eliquis has been on Hold s/p HD yesterday 2.5 L removed, HD ordered for tomorrow, we planned to do HD after Surgery tomorrow will keep pt on Thu, , Thursday schedule. will follow up Consultation Date/Type/Reason Admit Date/Time Mar 30, 2017 at 15:04 Initial Consult Date 03/30/17 Type of Consultation: NEPHROLOGY 24 HR Interval Summary Free Text/Dictation Plan for possible VAT surgery tomorrow , BP stable, c/o Leg pain and SOB Exam/Review of Systems Vital Signs Vitals Vital Signs Date Time Temp Pulse Resp B/P Pulse Ox O2 Delivery O2 Flow Rate FiO2 04/05/17 20:13 87 04/05/17 19:56 98.3 17 124/54 94 04/05/17 17:03 Nasal Cannula 2.0 04/02/17 20:16 31 Intake and Output 04/04/17 04/04/17 04/05/17 15:00 23:00 07:00 Intake Total 500 ml 800 ml 700 ml Output Total 3000 ml Balance -2500 ml 800 ml 700 ml Exam Constitutional: alert Head: normocephalic Eyes: nl conjunctiva Neck: non-tender, supple Respiratory: congested cough, crackles/rales, diminished breath sounds, other ( decreased BS on Right Upper and Middle lung ) Cardiovascular: regular rate and rhythm Gastrointestinal: non-tender, soft Musculoskeletal: muscle weakness, other (1-2+ edema ), range of motion Neurological: CROP QUANTITATIVE GENETICIST II-XII intact, nl mental status, nl speech, nl strength Results Result Diagram: 04/05/17 0518 04/05/17 0536 Results 24 hrs Laboratory Tests Test 04/04/17 21:42 04/05/17 01:58 04/05/17 05:18 04/05/17 05:36 Bedside Glucose 290 H 246 H White Blood Count 8.1 # Red Blood Count 4.05 L Hemoglobin 10.3 L Hematocrit 33.1 L Mean Corpuscular Volume 81.7 L Mean Corpuscular Hemoglobin 25.4 L Mean Corpuscular Hemoglobin Concent 31.1 L Red Cell Distribution Width 13.9 Platelet Count 299 Mean Platelet Volume 10.7 H Neutrophils % 71.3 Lymphocytes % 16.6 Monocytes % 9.6 Eosinophils % 1.4 Basophils % 0.4 Nucleated Red Blood Cells % 0.0 Neutrophils # 5.8 Lymphocytes # 1.3 Monocytes # 0.8 Eosinophils # 0.1 Basophils # 0.0 Nucleated Red Blood Cells # 0.0 Sodium Level 139 Potassium Level 4.8 Chloride Level 94 L Carbon Dioxide Level 31 Anion Gap 19 H Blood Urea Nitrogen 61 H Creatinine 7.03 H Glucose Level 214 Calcium Level 9.0 Phosphorus Level 6.2 H Magnesium Level 2.3 Albumin 3.6 Test 04/05/17 08:14 04/05/17 12:16 04/05/17 17:12 04/05/17 20:11 Bedside Glucose 235 H 240 H 252 H 195 Medications Medications Current Medications Apixaban (Eliquis) 2.5 mg BID PO Last administered on 04/01/17 08:11; Admin Dose 2.5 MG; Start 03/31/17 at 09:00; Status Future Hold Atorvastatin Calcium (Lipitor) 80 mg QHS PO Last administered on 04/05/17 20: 25; Admin Dose 80 MG; Start 03/30/17 at 21:00 Bisacodyl (Dulcolax Supp) 10 mg Q24H PRN [place] CONSTIPATION Last administered on 04/01/17 15:16; Admin Dose 10 MG; Start 03/30/17 at 14:30 Lisinopril (Zestril) 2.5 mg BID PO Last administered on 04/05/17 20:26; Admin Dose 2.5 MG; Start 03/30/17 at 21:00 Metoprolol Tartrate (Lopressor) 50 mg BID PO Last administered on 04/05/17 20: 25; Admin Dose 50 MG; Start 03/30/17 at 21:00 Nifedipine (Procardia Xl) 60 mg DAILY PO Last administered on 04/05/17 08:16; Admin Dose 60 MG; Start 03/31/17 at 09:00 Ondansetron HCl (Zofran Inj) 4 mg Q6H PRN IV NAUSEA AND/OR VOMITING; Start at 15:30 Acetaminophen (Tylenol Tab) 650 mg Q6H PRN PO PAIN LEVEL 1-3 OR FEVER; Start 03/30/17 at 15:30 Diagnostic Test (Pha) (Accu-Chek) 1 ea 02 XX Last administered on 04/04/17 02: 10; Admin Dose 1 EA; Start 03/31/17 at 02:00 Miscellaneous Information 1 ea NOTE XX ; Start 03/30/17 at 15:30 Glucose (Glutose) 15 gm Q15M PRN PO DECREASED GLUCOSE; Start 03/30/17 at 15:30 Glucose (Glutose) 22.5 gm Q15M PRN PO DECREASED GLUCOSE; Start 03/30/17 at 15: 30 Dextrose (D50w Syringe) 25 ml Q15M PRN IV DECREASED GLUCOSE; Start 03/30/17 at 15:30 Dextrose (D50w Syringe) 50 ml Q15M PRN IV DECREASED GLUCOSE; Start 03/30/17 at 15:30 Glucagon (Glucagen) 1 mg Q15M PRN IM DECREASED GLUCOSE; Start 03/30/17 at 15: 30 Glucose (Glutose) 15 gm Q15M PRN BUCC[place] DECREASED GLUCOSE; Start 03/30/17 at 15:30 Guaifenesin/ Codeine Phosphate (Robitussin Ac Liquid Cup) 5 ml Q4H PRN PO cough ; Start 03/30/17 at 19:30 Lidocaine (Lmx 4% Plus) 1 applic PRN PRN TOP Prior to HD cannulation Last administered on 03/31/17 11:23; Admin Dose 1 APPLIC; Start 03/30/17 at 21:00 Pantoprazole (Protonix Tab) 40 mg DAILY@06 PO Last administered on 04/05/17 06 :12; Admin Dose 40 MG; Start 04/01/17 at 06:00 Heparin Sodium (Porcine) (Heparin (5000 Units/0.5 ml)) 5,000 unit BID SC Last administered on 04/05/17 08:17; Admin Dose 5,000 UNIT; Start 04/01/17 at 21:00 Senna/Docusate Sodium (Senokot-S) 1 tab DAILY PO Last administered on 08:15; Admin Dose 1 TAB; Start 04/03/17 at 12:00 Mineral Oil (Fleet Mineral Oil Enema) 133 ml DAILY PRN [place] constipation Last administered on 04/05/17 16:41; Admin Dose 133 ML; Start 04/03/17 at 12:00 Insulin Glargine (Lantus) 12 unit QHS SC Last administered on 04/05/17 20:27; Admin Dose 12 UNIT; Start 04/05/17 at 21:00 RAYNE FITCH MD Apr 05, 2017 20:30
[2017-04-06] VITALS (11 sets, daily range): BP systolic 103–139; BP diastolic 41–63; PULSE 77–97; RESP 17–18
[2017-04-06] MEDS: ACCU-CHEK XX SCH (02:00)
[2017-04-06] MEDS: PANTOPRAZOLE (EC) 40 MG TAB PO SCH ×2 (06:00→08:43)
[2017-04-06 06:40] LABS: BASOPHILS % 0.4 % (0.0-2.0); EOSINOPHILS # 0.2 10^3/ul (0.0-0.5); EOSINOPHILS % 1.9 % (0.0-7.0); HEMATOCRIT 30.9 % (42.0-52.0); HEMOGLOBIN 9.7 g/dl (14.0-18.0); LYMPHOCYTES # 1.9 10^3/ul (0.8-2.9); LYMPHOCYTES % 21.7 % (15.0-51.0); MEAN CORPUSCULAR HEMOGLOBIN 25.5 pg (29.0-33.0); MEAN CORPUSCULAR HGB CONC 31.4 g/dl (32.0-37.0); MEAN CORPUSCULAR VOLUME 81.3 fl (82.0-101.0); MEAN PLATELET VOLUME 10.8 fl (7.4-10.4); MONOCYTE # 0.8 10^3/ul (0.3-0.9); MONOCYTES % 9.6 % (0.0-11.0); NEUTROPHIL # 5.6 10^3/ul (1.6-7.5); NEUTROPHILS % 65.2 % (39.0-77.0); PLATELET COUNT 287 10^3/UL (140-415); RED CELL DISTRIBUTION WIDTH 13.9 % (11.5-14.5); WHITE BLOOD COUNT 8.5 10^3/ul (4.8-10.8)
[2017-04-06 07:14] LABS: ALBUMIN 3.3 g/dl (3.3-4.9); CALCIUM 8.7 mg/dl (8.4-10.2); CREATININE 8.88 mg/dl (0.61-1.24); MAGNESIUM 2.4 mg/dl (1.7-2.5); PHOSPHORUS 6.4 mg/dl (2.5-4.9); POTASSIUM 5.1 mmol/L (3.5-5.1)
[2017-04-06] MEDS: SEVELAMER CARBONATE 0.8 GM PKT PO SCH ×3 (08:00→17:51)
[2017-04-06] MEDS: HEPARIN 5,000 UNIT/0.5 ML VIAL SC SCH ×2 (08:24→20:55)
[2017-04-06] MEDS: ALBUTEROL 0.083% (NEB) 2.5 MG/3 ML AMP HHN SCH ×4 (08:40→20:10)
[2017-04-06] MEDS: LISINOPRIL 5 MG TAB PO SCH ×2 (09:00→20:52)
[2017-04-06] MEDS: SENNA/DOCUSATE NA (8.6MG/50MG) TAB PO SCH (09:00)
[2017-04-06] MEDS: METOPROLOL 50 MG TAB PO SCH ×2 (09:00→20:52)
[2017-04-06] MEDS: INSULIN ASPART [NOVOLOG] 3 ML PEN SC SCH ×4 (09:37→20:55)
--- NOTE | 2017-04-06 10:33 | CONS ---
Date/Time of Note Date/Time of Note DATE: 04/06/17 TIME: 10:31 Assessment/Plan Assessment/Plan Additional Assessment/Plan Assessment and recommendations; 1. Patient admitted with shortness of breath due to massive right pleural effusion, status post attempted thoracentesis, only a few mL's of fluid could be removed. There are likely underlying multiple loculations to the pleural effusion. 2. Lymphocytic predominant fluid. Possibly underlying malignancy. 3. History of end-stage renal disease, hypertension and diabetes. Continue current supportive care. Patient scheduled for thoracic surgery today. I did have a detailed discussion the patient's son at bedside and answered all his questions. Consultation Date/Type/Reason Admit Date/Time Mar 30, 2017 at 15:04 Initial Consult Date 03/30/17 Type of Consultation: Pulmonary 24 HR Interval Summary Free Text/Dictation Patient's condition is stable. Denies any significant shortness of breath. Denies any coughing, hemoptysis or sputum production. Denies any chest pain. General exam; elderly male, awake and alert. Currently in no distress. Exam/Review of Systems Vital Signs Vitals Vital Signs Date Time Temp Pulse Resp B/P Pulse Ox O2 Delivery O2 Flow Rate FiO2 04/06/17 08:05 98.3 82 17 103/41 93 04/05/17 20:32 2.0 04/05/17 20:32 Nasal Cannula 04/02/17 20:16 31 Intake and Output 04/05/17 04/05/17 04/06/17 15:00 23:00 07:00 Intake Total 500 ml 550 ml Balance 500 ml 550 ml Exam HEENT exam; supple neck, no JVD. No lymphadenopathy. Midline trachea. No thyromegaly. Chest exam; absent breath sounds right lung. Left lung is clear to auscultation. S1-S2 audible, no murmurs. Regular rhythm. Abdomen exam; soft, nontender. No organomegaly. Bowel sounds audible. Extremity exam; no edema. PUBLIC SAFETY OFFICER exam; no focal deficit. Results Result Diagram: 04/06/17 0610 04/06/17 0610 Results 24 hrs Laboratory Tests Test 04/05/17 12:16 04/05/17 17:12 04/05/17 20:11 04/06/17 02:18 Bedside Glucose 240 H 252 H 195 266 H Test 04/06/17 06:10 04/06/17 08:36 White Blood Count 8.5 Red Blood Count 3.80 L Hemoglobin 9.7 L Hematocrit 30.9 L Mean Corpuscular Volume 81.3 L Mean Corpuscular Hemoglobin 25.5 L Mean Corpuscular Hemoglobin Concent 31.4 L Red Cell Distribution Width 13.9 Platelet Count 287 Mean Platelet Volume 10.8 H Neutrophils % 65.2 Lymphocytes % 21.7 Monocytes % 9.6 Eosinophils % 1.9 Basophils % 0.4 Nucleated Red Blood Cells % 0.0 Neutrophils # 5.6 Lymphocytes # 1.9 Monocytes # 0.8 Eosinophils # 0.2 Basophils # 0.0 Nucleated Red Blood Cells # 0.0 Sodium Level 136 Potassium Level 5.1 Chloride Level 92 L Carbon Dioxide Level 28 Anion Gap 21 H Blood Urea Nitrogen 82 H Creatinine 8.88 H Glucose Level 194 Calcium Level 8.7 Phosphorus Level 6.4 H Magnesium Level 2.4 Albumin 3.3 Bedside Glucose 185 Medications Medications Current Medications Apixaban (Eliquis) 2.5 mg BID PO Last administered on 04/01/17 08:11; Admin Dose 2.5 MG; Start 03/31/17 at 09:00; Status Future Hold Atorvastatin Calcium (Lipitor) 80 mg QHS PO Last administered on 04/05/17 20: 25; Admin Dose 80 MG; Start 03/30/17 at 21:00 Bisacodyl (Dulcolax Supp) 10 mg Q24H PRN [place] CONSTIPATION Last administered on 04/01/17 15:16; Admin Dose 10 MG; Start 03/30/17 at 14:30 Lisinopril (Zestril) 2.5 mg BID PO Last administered on 04/05/17 20:26; Admin Dose 2.5 MG; Start 03/30/17 at 21:00 Metoprolol Tartrate (Lopressor) 50 mg BID PO Last administered on 04/05/17 20: 25; Admin Dose 50 MG; Start 03/30/17 at 21:00 Nifedipine (Procardia Xl) 60 mg DAILY PO Last administered on 04/05/17 08:16; Admin Dose 60 MG; Start 03/31/17 at 09:00 Ondansetron HCl (Zofran Inj) 4 mg Q6H PRN IV NAUSEA AND/OR VOMITING; Start at 15:30 Acetaminophen (Tylenol Tab) 650 mg Q6H PRN PO PAIN LEVEL 1-3 OR FEVER; Start 03/30/17 at 15:30 Diagnostic Test (Pha) (Accu-Chek) 1 ea 02 XX Last administered on 04/04/17 02: 10; Admin Dose 1 EA; Start 03/31/17 at 02:00 Miscellaneous Information 1 ea NOTE XX ; Start 03/30/17 at 15:30 Glucose (Glutose) 15 gm Q15M PRN PO DECREASED GLUCOSE; Start 03/30/17 at 15:30 Glucose (Glutose) 22.5 gm Q15M PRN PO DECREASED GLUCOSE; Start 03/30/17 at 15: 30 Dextrose (D50w Syringe) 25 ml Q15M PRN IV DECREASED GLUCOSE; Start 03/30/17 at 15:30 Dextrose (D50w Syringe) 50 ml Q15M PRN IV DECREASED GLUCOSE; Start 03/30/17 at 15:30 Glucagon (Glucagen) 1 mg Q15M PRN IM DECREASED GLUCOSE; Start 03/30/17 at 15: 30 Glucose (Glutose) 15 gm Q15M PRN BUCC[place] DECREASED GLUCOSE; Start 03/30/17 at 15:30 Guaifenesin/ Codeine Phosphate (Robitussin Ac Liquid Cup) 5 ml Q4H PRN PO cough ; Start 03/30/17 at 19:30 Lidocaine (Lmx 4% Plus) 1 applic PRN PRN TOP Prior to HD cannulation Last administered on 03/31/17 11:23; Admin Dose 1 APPLIC; Start 03/30/17 at 21:00 Pantoprazole (Protonix Tab) 40 mg DAILY@06 PO Last administered on 04/06/17 08 :43; Admin Dose 40 MG; Start 04/01/17 at 06:00 Heparin Sodium (Porcine) (Heparin (5000 Units/0.5 ml)) 5,000 unit BID SC Last administered on 04/05/17 08:17; Admin Dose 5,000 UNIT; Start 04/01/17 at 21:00 Senna/Docusate Sodium (Senokot-S) 1 tab DAILY PO Last administered on 08:15; Admin Dose 1 TAB; Start 04/03/17 at 12:00 Mineral Oil (Fleet Mineral Oil Enema) 133 ml DAILY PRN [place] constipation Last administered on 04/05/17 16:41; Admin Dose 133 ML; Start 04/03/17 at 12:00 Insulin Glargine (Lantus) 12 unit QHS SC Last administered on 04/05/17 20:27; Admin Dose 12 UNIT; Start 04/05/17 at 21:00 TRACEY HAWKINS Apr 06, 2017 10:33
[2017-04-06] MEDS: NIFEdipine (XL) 60 MG TAB PO SCH (10:53)
--- NOTE | 2017-04-06 15:35 | PN ---
Date/Time of Note Date/Time of Note DATE: 04/06/17 TIME: 15:33 Assessment/Plan VTE Prophylaxis VTE Prophylaxis Intervention: ambulation, SCD's Lines/Catheters IV Catheter Type (from Nrsg): Mid Line Urinary Cath still in place: No Assessment/Plan Chief Complaint/Hosp Course s: 12.4 no acute changes, but patient's son refusing surgery due to HD o: Physical exam General: Patient is laying in bed and answers questions appropriately Mentation: Patient is alert and oriented 4, Head: Normocephalic atraumatic Eyes: EOMI, pupils reactive to light Neck: Supple, nontender, midline Respiratory: coarse to auscultation bilaterally Cardiovascular: regular rate, no obvious murmurs Gastrointestinal: non-tender to palpation, bowel sounds heard. Neurological: Moves all extremities spontaneously Skin: No new skin lesions Assessment/Plan Acute hypoxic respiratory failure secondary to pleural effusion in right lung- improving - Plans for VATS tomorrow and per Dr. Huerta would ideally like to perform HD prior to the procedure to ensure patient close to dry weight to assist with extubation after procedure - Patient remains stable respiratory brewer and saturating >90% on NC - CT surgery on board and appreciate consultation. VATS tmrw and will keep NPO after midnight - Cardiology clearance obtained and okay to hold Plavix and Eliquis prior to VATS. Currently has Heparin on board and will hold after midnight - HRCT chest shows large right pleural effusion but appeared to have multiple loculated pockets on US - Pulmonology consultation appreciated. recommending large bore chest tube - Bronchodilators as needed Large Right pleural effusion s/p thoracentesis 03/30 - 250 cc of fluid was removed but CXR still showed complete white out of right lung - Pulm on board and consultation appreciated Acute on chronic CHF - Last ECHO 10/2016 showed EF 65% with stage 1 diastolic dysfunction - Monitor I/O and daily weights - CXR shows cardiomegaly - Cardiology consultation appreciated and cleared for VATS on Thursday ESRD on HD - patient on scheduled - Nephrology consultation appreciated Hypertensive urgency - BP controlled on home medications DM, type 2 - Will increase lantus dosing to 12 units - ISS and accuchecks - A1c 6.9 Heart block/bradycardia with PPM - cardiology on board CAD s/p stent 10/2016 - continue on home medications - Holding Plavix Atrial fibrillation - on BB, Eliquis on hold - rate controlled Oliguria - voided small amount yesterday - Lasix 80mg IV Constipation - given Senna S and suppository. Will try mineral oil enema Disposition - scheduled for VATS tmrw, as patient's family was against surgery after HD, as patient has hx of doing unwell after HD, but CT surgery will not perform surgery unless patient dialyzed before surgery. - NPO after midnight and hold Heparin Problems: Exam/Review of Systems Vital Signs Vitals Vital Signs Date Time Temp Pulse Resp B/P Pulse Ox O2 Delivery O2 Flow Rate FiO2 04/06/17 13:20 80 20 94 Nasal Cannula 2.0 04/06/17 11:55 98.9 138/61 04/02/17 20:16 31 Intake and Output 04/05/17 04/05/17 04/06/17 15:00 23:00 07:00 Intake Total 500 ml 550 ml Balance 500 ml 550 ml Results Result Diagram: 04/06/17 0610 04/06/17 0610 Results 24 hrs Laboratory Tests Test 04/05/17 17:12 04/05/17 20:11 04/06/17 02:18 04/06/17 06:10 Bedside Glucose 252 H 195 266 H White Blood Count 8.5 Red Blood Count 3.80 L Hemoglobin 9.7 L Hematocrit 30.9 L Mean Corpuscular Volume 81.3 L Mean Corpuscular Hemoglobin 25.5 L Mean Corpuscular Hemoglobin Concent 31.4 L Red Cell Distribution Width 13.9 Platelet Count 287 Mean Platelet Volume 10.8 H Neutrophils % 65.2 Lymphocytes % 21.7 Monocytes % 9.6 Eosinophils % 1.9 Basophils % 0.4 Nucleated Red Blood Cells % 0.0 Neutrophils # 5.6 Lymphocytes # 1.9 Monocytes # 0.8 Eosinophils # 0.2 Basophils # 0.0 Nucleated Red Blood Cells # 0.0 Sodium Level 136 Potassium Level 5.1 Chloride Level 92 L Carbon Dioxide Level 28 Anion Gap 21 H Blood Urea Nitrogen 82 H Creatinine 8.88 H Glucose Level 194 Calcium Level 8.7 Phosphorus Level 6.4 H Magnesium Level 2.4 Albumin 3.3 Test 04/06/17 08:36 04/06/17 12:32 Bedside Glucose 185 156 Medications Medications Current Medications Apixaban (Eliquis) 2.5 mg BID PO Last administered on 04/01/17 08:11; Admin Dose 2.5 MG; Start 03/31/17 at 09:00; Status Future Hold Atorvastatin Calcium (Lipitor) 80 mg QHS PO Last administered on 04/05/17 20: 25; Admin Dose 80 MG; Start 03/30/17 at 21:00 Bisacodyl (Dulcolax Supp) 10 mg Q24H PRN [place] CONSTIPATION Last administered on 04/01/17 15:16; Admin Dose 10 MG; Start 03/30/17 at 14:30 Lisinopril (Zestril) 2.5 mg BID PO Last administered on 04/05/17 20:26; Admin Dose 2.5 MG; Start 03/30/17 at 21:00 Metoprolol Tartrate (Lopressor) 50 mg BID PO Last administered on 04/05/17 20: 25; Admin Dose 50 MG; Start 03/30/17 at 21:00 Nifedipine (Procardia Xl) 60 mg DAILY PO Last administered on 04/05/17 08:16; Admin Dose 60 MG; Start 03/31/17 at 09:00 Ondansetron HCl (Zofran Inj) 4 mg Q6H PRN IV NAUSEA AND/OR VOMITING; Start at 15:30 Acetaminophen (Tylenol Tab) 650 mg Q6H PRN PO PAIN LEVEL 1-3 OR FEVER; Start 03/30/17 at 15:30 Diagnostic Test (Pha) (Accu-Chek) 1 ea 02 XX Last administered on 04/04/17 02: 10; Admin Dose 1 EA; Start 03/31/17 at 02:00 Miscellaneous Information 1 ea NOTE XX ; Start 03/30/17 at 15:30 Glucose (Glutose) 15 gm Q15M PRN PO DECREASED GLUCOSE; Start 03/30/17 at 15:30 Glucose (Glutose) 22.5 gm Q15M PRN PO DECREASED GLUCOSE; Start 03/30/17 at 15: 30 Dextrose (D50w Syringe) 25 ml Q15M PRN IV DECREASED GLUCOSE; Start 03/30/17 at 15:30 Dextrose (D50w Syringe) 50 ml Q15M PRN IV DECREASED GLUCOSE; Start 03/30/17 at 15:30 Glucagon (Glucagen) 1 mg Q15M PRN IM DECREASED GLUCOSE; Start 03/30/17 at 15: 30 Glucose (Glutose) 15 gm Q15M PRN BUCCAL DECREASED GLUCOSE; Start 03/30/17 at 15:30 Guaifenesin/ Codeine Phosphate (Robitussin Ac Liquid Cup) 5 ml Q4H PRN PO cough ; Start 03/30/17 at 19:30 Lidocaine (Lmx 4% Plus) 1 applic PRN PRN TOP Prior to HD cannulation Last administered on 03/31/17 11:23; Admin Dose 1 APPLIC; Start 03/30/17 at 21:00 Pantoprazole (Protonix Tab) 40 mg DAILY@06 PO Last administered on 04/06/17 08 :43; Admin Dose 40 MG; Start 04/01/17 at 06:00 Heparin Sodium (Porcine) (Heparin (5000 Units/0.5 ml)) 5,000 unit BID SC Last administered on 04/05/17 08:17; Admin Dose 5,000 UNIT; Start 04/01/17 at 21:00 Senna/Docusate Sodium (Senokot-S) 1 tab DAILY PO Last administered on 08:15; Admin Dose 1 TAB; Start 04/03/17 at 12:00 Mineral Oil (Fleet Mineral Oil Enema) 133 ml DAILY PRN [place] constipation Last administered on 04/05/17 16:41; Admin Dose 133 ML; Start 04/03/17 at 12:00 Insulin Glargine (Lantus) 12 unit QHS SC Last administered on 04/05/17 20:27; Admin Dose 12 UNIT; Start 04/05/17 at 21:00 ANANTH PATEL Apr 06, 2017 15:35
--- NOTE | 2017-04-06 18:53 | CONS ---
Date/Time of Note Date/Time of Note DATE: 04/06/17 TIME: 18:52 Consult Date/Type/Reason Admit Date/Time Mar 30, 2017 at 15:04 Initial Consult Date 03/30/17 Type of Consultation: Cardiology Objective Vital Signs Date Time Temp Pulse Resp B/P Pulse Ox O2 Delivery O2 Flow Rate FiO2 04/06/17 16:50 90 20 98 Nasal Cannula 2.0 04/06/17 16:06 98.6 139/63 04/02/17 20:16 31 Intake and Output 04/05/17 04/05/17 04/06/17 15:00 23:00 07:00 Intake Total 500 ml 550 ml Balance 500 ml 550 ml Results/Medications Result Diagram: 04/06/17 0610 04/06/17 0610 Results 24 hrs Laboratory Tests Test 04/05/17 20:11 04/06/17 02:18 04/06/17 06:10 04/06/17 08:36 Bedside Glucose 195 266 H 185 White Blood Count 8.5 Red Blood Count 3.80 L Hemoglobin 9.7 L Hematocrit 30.9 L Mean Corpuscular Volume 81.3 L Mean Corpuscular Hemoglobin 25.5 L Mean Corpuscular Hemoglobin Concent 31.4 L Red Cell Distribution Width 13.9 Platelet Count 287 Mean Platelet Volume 10.8 H Neutrophils % 65.2 Lymphocytes % 21.7 Monocytes % 9.6 Eosinophils % 1.9 Basophils % 0.4 Nucleated Red Blood Cells % 0.0 Neutrophils # 5.6 Lymphocytes # 1.9 Monocytes # 0.8 Eosinophils # 0.2 Basophils # 0.0 Nucleated Red Blood Cells # 0.0 Sodium Level 136 Potassium Level 5.1 Chloride Level 92 L Carbon Dioxide Level 28 Anion Gap 21 H Blood Urea Nitrogen 82 H Creatinine 8.88 H Glucose Level 194 Calcium Level 8.7 Phosphorus Level 6.4 H Magnesium Level 2.4 Albumin 3.3 Test 04/06/17 12:32 04/06/17 17:48 Bedside Glucose 156 221 H Medications Current Medications Apixaban (Eliquis) 2.5 mg BID PO Last administered on 04/01/17 08:11; Admin Dose 2.5 MG; Start 03/31/17 at 09:00; Status Future Hold Atorvastatin Calcium (Lipitor) 80 mg QHS PO Last administered on 04/05/17 20: 25; Admin Dose 80 MG; Start 03/30/17 at 21:00 Bisacodyl (Dulcolax Supp) 10 mg Q24H PRN [place] CONSTIPATION Last administered on 04/01/17 15:16; Admin Dose 10 MG; Start 03/30/17 at 14:30 Lisinopril (Zestril) 2.5 mg BID PO Last administered on 04/05/17 20:26; Admin Dose 2.5 MG; Start 03/30/17 at 21:00 Metoprolol Tartrate (Lopressor) 50 mg BID PO Last administered on 04/05/17 20: 25; Admin Dose 50 MG; Start 03/30/17 at 21:00 Nifedipine (Procardia Xl) 60 mg DAILY PO Last administered on 04/05/17 08:16; Admin Dose 60 MG; Start 03/31/17 at 09:00 Ondansetron HCl (Zofran Inj) 4 mg Q6H PRN IV NAUSEA AND/OR VOMITING; Start at 15:30 Acetaminophen (Tylenol Tab) 650 mg Q6H PRN PO PAIN LEVEL 1-3 OR FEVER; Start 03/30/17 at 15:30 Diagnostic Test (Pha) (Accu-Chek) 1 ea 02 XX Last administered on 04/04/17 02: 10; Admin Dose 1 EA; Start 03/31/17 at 02:00 Miscellaneous Information 1 ea NOTE XX ; Start 03/30/17 at 15:30 Glucose (Glutose) 15 gm Q15M PRN PO DECREASED GLUCOSE; Start 03/30/17 at 15:30 Glucose (Glutose) 22.5 gm Q15M PRN PO DECREASED GLUCOSE; Start 03/30/17 at 15: 30 Dextrose (D50w Syringe) 25 ml Q15M PRN IV DECREASED GLUCOSE; Start 03/30/17 at 15:30 Dextrose (D50w Syringe) 50 ml Q15M PRN IV DECREASED GLUCOSE; Start 03/30/17 at 15:30 Glucagon (Glucagen) 1 mg Q15M PRN IM DECREASED GLUCOSE; Start 03/30/17 at 15: 30 Glucose (Glutose) 15 gm Q15M PRN BUCCAL DECREASED GLUCOSE; Start 03/30/17 at 15:30 Guaifenesin/ Codeine Phosphate (Robitussin Ac Liquid Cup) 5 ml Q4H PRN PO cough ; Start 03/30/17 at 19:30 Lidocaine (Lmx 4% Plus) 1 applic PRN PRN TOP Prior to HD cannulation Last administered on 03/31/17 11:23; Admin Dose 1 APPLIC; Start 03/30/17 at 21:00 Pantoprazole (Protonix Tab) 40 mg DAILY@06 PO Last administered on 04/06/17 08 :43; Admin Dose 40 MG; Start 04/01/17 at 06:00 Heparin Sodium (Porcine) (Heparin (5000 Units/0.5 ml)) 5,000 unit BID SC Last administered on 04/05/17 08:17; Admin Dose 5,000 UNIT; Start 04/01/17 at 21:00 Senna/Docusate Sodium (Senokot-S) 1 tab DAILY PO Last administered on 08:15; Admin Dose 1 TAB; Start 04/03/17 at 12:00 Mineral Oil (Fleet Mineral Oil Enema) 133 ml DAILY PRN [place] constipation Last administered on 04/05/17 16:41; Admin Dose 133 ML; Start 04/03/17 at 12:00 Insulin Glargine (Lantus) 12 unit QHS SC Last administered on 04/05/17 20:27; Admin Dose 12 UNIT; Start 04/05/17 at 21:00 Assessment/Plan Chief Complaint/Hosp Course Patient is know to me form out pt with history of [place] with PCI of RCA, SSS s/p st sayra PPM implantation, HTN, ESRD on HD, Severe PAD and Venous disease, HLD who presented to ER with Severe SOB, found to have white out of his right lung, likely PNA, s/p thoracocentesis with 250cc fluid only. No WBC, NO fever, Less likely this is Infection at this extent, I would get Contrast CT with [place]. Problems: Additional Assessment/Plan Holding AC and antiplatelets Plan for possible VATS/vs Chest tube concern for MLg paln per pulm and Thoracic surgery will /fu HUNTER BASSETT MD Apr 06, 2017 18:53
[2017-04-06] MEDS: ATORVASTATIN 80 MG TAB PO SCH (20:51)
[2017-04-06] MEDS: INSULIN GLARGINE [LANtus] 3 ML PEN SC SCH (20:54)
--- NOTE | 2017-04-06 21:11 | PN ---
Date/Time of Note Date/Time of Note DATE: 04/06/17 TIME: 21:10 Assessment/Plan Lines/Catheters IV Catheter Type (from Nrsg): Mid Line Yañez in Place (from Nrsg): No Assessment/Plan Chief Complaint/Hosp Course IMPRESSION: Right-sided pleural effusion which appears to be loculated. RECOMMENDATIONS: This patient would benefit from video-assisted thoracic surgery and decortication. VATS cancelled by anest will need aggresive HD prior to surgery and pt has been off of plavix Plan for surgery when cleared by Pulm Discussed with the family. Risk and benefits explained Will discuss with the referring physicians. Problems: Subjective 24 Hr Interval Summary Constitutional: improved Pain Control: mild Exam/Review of Systems Vital Signs Vitals Vital Signs Date Time Temp Pulse Resp B/P Pulse Ox O2 Delivery O2 Flow Rate FiO2 04/06/17 20:38 98.3 93 18 130/59 95 04/06/17 20:12 2.0 04/06/17 20:12 Nasal Cannula 04/02/17 20:16 31 Intake and Output 04/05/17 04/05/17 04/06/17 15:00 23:00 07:00 Intake Total 500 ml 550 ml Balance 500 ml 550 ml Exam ENMT: mucosa pink and moist, nl external ears & nose, nl lips & teeth, nl nasal mucosa & septum Neck: non-tender, supple Respiratory: clear to auscultation, normal air movement Cardiovascular: nl pulses, regular rate and rhythm Results Result Diagram: 04/06/17 0610 04/06/17 0610 SHAYLA YAÑEZ MD Apr 06, 2017 21:11
--- NOTE | 2017-04-06 21:23 | CONS ---
Date/Time of Note Date/Time of Note DATE: 04/06/17 TIME: 21:21 Assessment/Plan Assessment/Plan Additional Assessment/Plan 1. Acute hypoxic resp failure due to acute fluid overload and Pleural effusion 2. ESRD on HD -TTS schedule 3. Right hemithorax multiple loculated right pleural effusion s/p Thoracentesis 250 cc drained- pt has multiple pockets of loculated effusion 4. h/o CAD s/p CABG 5/ H/o recent [place] and s/p stenting by 6/ HTN 7/ HL Plan: s/p Thoracentesis 250 cc drained, pt has multiple loculations on right lung- s/ p CT surgery evaluation, plan for possible VATS on Thursday, Plavix and Eliquis has been on Hold VATS Cancelled because pt son did not let them do HD early in AM and Anesthesiology did not clear him for surgery without HD, pt will get HD thursday AM and also on thursday AM - possibel rescheduling of OR on thursday will follow up Consultation Date/Type/Reason Admit Date/Time Mar 30, 2017 at 15:04 Initial Consult Date 03/30/17 Type of Consultation: NEPHROLOGY 24 HR Interval Summary Free Text/Dictation VATS Cancelled because pt son did not let them do HD early in AM and Anesthesiology did not clear him for surgery without HD Exam/Review of Systems Vital Signs Vitals Vital Signs Date Time Temp Pulse Resp B/P Pulse Ox O2 Delivery O2 Flow Rate FiO2 04/06/17 20:38 98.3 93 18 130/59 95 04/06/17 20:12 2.0 04/06/17 20:12 Nasal Cannula 04/02/17 20:16 31 Intake and Output 04/05/17 04/05/17 04/06/17 15:00 23:00 07:00 Intake Total 500 ml 550 ml Balance 500 ml 550 ml Exam Constitutional: alert Head: normocephalic Eyes: nl conjunctiva Neck: non-tender, supple Respiratory: congested cough, crackles/rales, diminished breath sounds, other ( decreased BS on Right Upper and Middle lung ) Cardiovascular: regular rate and rhythm Gastrointestinal: non-tender, soft Musculoskeletal: muscle weakness, other (1-2+ edema ), range of motion Neurological: [employer] II-XII intact, nl mental status, nl speech, nl strength Results Result Diagram: 04/06/17 0610 04/06/17 0610 Results 24 hrs Laboratory Tests Test 04/06/17 02:18 04/06/17 06:10 04/06/17 08:36 04/06/17 12:32 Bedside Glucose 266 H 185 156 White Blood Count 8.5 Red Blood Count 3.80 L Hemoglobin 9.7 L Hematocrit 30.9 L Mean Corpuscular Volume 81.3 L Mean Corpuscular Hemoglobin 25.5 L Mean Corpuscular Hemoglobin Concent 31.4 L Red Cell Distribution Width 13.9 Platelet Count 287 Mean Platelet Volume 10.8 H Neutrophils % 65.2 Lymphocytes % 21.7 Monocytes % 9.6 Eosinophils % 1.9 Basophils % 0.4 Nucleated Red Blood Cells % 0.0 Neutrophils # 5.6 Lymphocytes # 1.9 Monocytes # 0.8 Eosinophils # 0.2 Basophils # 0.0 Nucleated Red Blood Cells # 0.0 Sodium Level 136 Potassium Level 5.1 Chloride Level 92 L Carbon Dioxide Level 28 Anion Gap 21 H Blood Urea Nitrogen 82 H Creatinine 8.88 H Glucose Level 194 Calcium Level 8.7 Phosphorus Level 6.4 H Magnesium Level 2.4 Albumin 3.3 Test 04/06/17 17:48 04/06/17 20:37 Bedside Glucose 221 H 227 H Medications Medications Current Medications Apixaban (Eliquis) 2.5 mg BID PO Last administered on 04/01/17 08:11; Admin Dose 2.5 MG; Start 03/31/17 at 09:00; Status Future Hold Atorvastatin Calcium (Lipitor) 80 mg QHS PO Last administered on 04/06/17 20: 51; Admin Dose 80 MG; Start 03/30/17 at 21:00 Bisacodyl (Dulcolax Supp) 10 mg Q24H PRN [place] CONSTIPATION Last administered on 04/01/17 15:16; Admin Dose 10 MG; Start 03/30/17 at 14:30 Lisinopril (Zestril) 2.5 mg BID PO Last administered on 04/06/17 20:52; Admin Dose 2.5 MG; Start 03/30/17 at 21:00 Metoprolol Tartrate (Lopressor) 50 mg BID PO Last administered on 04/06/17 20: 52; Admin Dose 50 MG; Start 03/30/17 at 21:00 Nifedipine (Procardia Xl) 60 mg DAILY PO Last administered on 04/05/17 08:16; Admin Dose 60 MG; Start 03/31/17 at 09:00 Ondansetron HCl (Zofran Inj) 4 mg Q6H PRN IV NAUSEA AND/OR VOMITING; Start at 15:30 Acetaminophen (Tylenol Tab) 650 mg Q6H PRN PO PAIN LEVEL 1-3 OR FEVER; Start 03/30/17 at 15:30 Diagnostic Test (Pha) (Accu-Chek) 1 ea 02 XX Last administered on 04/04/17 02: 10; Admin Dose 1 EA; Start 03/31/17 at 02:00 Miscellaneous Information 1 ea NOTE XX ; Start 03/30/17 at 15:30 Glucose (Glutose) 15 gm Q15M PRN PO DECREASED GLUCOSE; Start 03/30/17 at 15:30 Glucose (Glutose) 22.5 gm Q15M PRN PO DECREASED GLUCOSE; Start 03/30/17 at 15: 30 Dextrose (D50w Syringe) 25 ml Q15M PRN IV DECREASED GLUCOSE; Start 03/30/17 at 15:30 Dextrose (D50w Syringe) 50 ml Q15M PRN IV DECREASED GLUCOSE; Start 03/30/17 at 15:30 Glucagon (Glucagen) 1 mg Q15M PRN IM DECREASED GLUCOSE; Start 03/30/17 at 15: 30 Glucose (Glutose) 15 gm Q15M PRN BUCC[place] DECREASED GLUCOSE; Start 03/30/17 at 15:30 Guaifenesin/ Codeine Phosphate (Robitussin Ac Liquid Cup) 5 ml Q4H PRN PO cough ; Start 03/30/17 at 19:30 Lidocaine (Lmx 4% Plus) 1 applic PRN PRN TOP Prior to HD cannulation Last administered on 03/31/17 11:23; Admin Dose 1 APPLIC; Start 03/30/17 at 21:00 Pantoprazole (Protonix Tab) 40 mg DAILY@06 PO Last administered on 04/06/17 08 :43; Admin Dose 40 MG; Start 04/01/17 at 06:00 Heparin Sodium (Porcine) (Heparin (5000 Units/0.5 ml)) 5,000 unit BID SC Last administered on 04/05/17 08:17; Admin Dose 5,000 UNIT; Start 04/01/17 at 21:00 Senna/Docusate Sodium (Senokot-S) 1 tab DAILY PO Last administered on 08:15; Admin Dose 1 TAB; Start 04/03/17 at 12:00 Mineral Oil (Fleet Mineral Oil Enema) 133 ml DAILY PRN [place] constipation Last administered on 04/05/17 16:41; Admin Dose 133 ML; Start 04/03/17 at 12:00 Insulin Glargine (Lantus) 12 unit QHS SC Last administered on 04/06/17 20:54; Admin Dose 12 UNIT; Start 04/05/17 at 21:00 RAYNE FITCH MD Apr 06, 2017 21:23
[2017-04-07] VITALS (19 sets, daily range): BP systolic 107–164; BP diastolic 51–75; PULSE 74–101; RESP 16–20
[2017-04-07] MEDS: ACCU-CHEK XX SCH (02:00)
[2017-04-07] MEDS: SENNA/DOCUSATE NA (8.6MG/50MG) TAB PO SCH (08:17)
[2017-04-07] MEDS: SEVELAMER CARBONATE 0.8 GM PKT PO SCH ×3 (08:17→17:17)
[2017-04-07] MEDS: INSULIN ASPART [NOVOLOG] 3 ML PEN SC SCH ×5 (08:18→21:23)
[2017-04-07 08:30] LABS: BASOPHILS % 0.4 % (0.0-2.0); EOSINOPHILS # 0.1 10^3/ul (0.0-0.5); EOSINOPHILS % 1.8 % (0.0-7.0); HEMATOCRIT 30.1 % (42.0-52.0); HEMOGLOBIN 9.4 g/dl (14.0-18.0); LYMPHOCYTES # 1.2 10^3/ul (0.8-2.9); LYMPHOCYTES % 15.3 % (15.0-51.0); MEAN CORPUSCULAR HEMOGLOBIN 25.4 pg (29.0-33.0); MEAN CORPUSCULAR HGB CONC 31.2 g/dl (32.0-37.0); MEAN CORPUSCULAR VOLUME 81.4 fl (82.0-101.0); MEAN PLATELET VOLUME 10.8 fl (7.4-10.4); MONOCYTE # 0.6 10^3/ul (0.3-0.9); NEUTROPHIL # 5.8 10^3/ul (1.6-7.5); NEUTROPHILS % 73.4 % (39.0-77.0); PLATELET COUNT 295 10^3/UL (140-415); RED CELL DISTRIBUTION WIDTH 13.7 % (11.5-14.5); WHITE BLOOD COUNT 7.9 10^3/ul (4.8-10.8)
[2017-04-07 08:44] LABS: ALBUMIN 3.2 g/dl (3.3-4.9); CALCIUM 8.4 mg/dl (8.4-10.2); MAGNESIUM 2.3 mg/dl (1.7-2.5); PHOSPHORUS 7.1 mg/dl (2.5-4.9); POTASSIUM 5.5 mmol/L (3.5-5.1)
--- NOTE | 2017-04-07 08:58 | CONS ---
Date/Time of Note Date/Time of Note DATE: 04/07/17 TIME: 08:56 Assessment/Plan Assessment/Plan Additional Assessment/Plan 1. Acute hypoxic resp failure due to acute fluid overload and Pleural effusion 2. ESRD on HD -TTS schedule 3. Right hemithorax multiple loculated right pleural effusion s/p Thoracentesis 250 cc drained- pt has multiple pockets of loculated effusion 4. h/o CAD s/p CABG 5/ H/o recent [place] and s/p stenting by 6/ HTN 7/ HL Plan: s/p Thoracentesis 250 cc drained, pt has multiple loculations on right lung- s/ p CT surgery evaluation, Plavix and Eliquis has been on Hold plan for VATS on thursday, will plan for HD today and tomorrow will follow up Consultation Date/Type/Reason Admit Date/Time Mar 30, 2017 at 15:04 Initial Consult Date 03/30/17 Type of Consultation: NEPHROLOGY 24 HR Interval Summary Free Text/Dictation Plan for HD today and tomorrow, pt c/o SOB, Plan for VAT on thursday Exam/Review of Systems Vital Signs Vitals Vital Signs Date Time Temp Pulse Resp B/P Pulse Ox O2 Delivery O2 Flow Rate FiO2 04/07/17 08:00 83 04/07/17 07:45 98.6 20 164/75 95 04/07/17 04:30 Nasal Cannula 04/06/17 21:35 3.0 Intake and Output 04/06/17 04/06/17 04/07/17 15:00 23:00 07:00 Intake Total 640 ml 250 ml Balance 640 ml 250 ml Exam Constitutional: alert Head: normocephalic Eyes: nl conjunctiva Neck: non-tender, supple Respiratory: congested cough, crackles/rales, diminished breath sounds, other ( decreased BS on Right Upper and Middle lung ) Cardiovascular: regular rate and rhythm Gastrointestinal: non-tender, soft Musculoskeletal: muscle weakness, other (1-2+ edema ), range of motion Neurological: [employer] II-XII intact, nl mental status, nl speech, nl strength Results Result Diagram: 04/07/17 0804 04/07/17 0804 Results 24 hrs Laboratory Tests Test 04/06/17 12:32 04/06/17 17:48 04/06/17 20:37 04/06/17 23:48 Bedside Glucose 156 221 H 227 H 227 H Test 04/07/17 04:44 04/07/17 07:46 04/07/17 08:04 Bedside Glucose 167 269 H White Blood Count 7.9 Red Blood Count 3.70 L Hemoglobin 9.4 L Hematocrit 30.1 L Mean Corpuscular Volume 81.4 L Mean Corpuscular Hemoglobin 25.4 L Mean Corpuscular Hemoglobin Concent 31.2 L Red Cell Distribution Width 13.7 Platelet Count 295 Mean Platelet Volume 10.8 H Neutrophils % 73.4 Lymphocytes % 15.3 Monocytes % 8.0 Eosinophils % 1.8 Basophils % 0.4 Nucleated Red Blood Cells % 0.0 Neutrophils # 5.8 Lymphocytes # 1.2 Monocytes # 0.6 Eosinophils # 0.1 Basophils # 0.0 Nucleated Red Blood Cells # 0.0 Sodium Level 134 L Potassium Level 5.5 H Chloride Level 92 L Carbon Dioxide Level 25 Anion Gap 23 H Blood Urea Nitrogen 103 H Creatinine 10.15 H Glucose Level 264 H Calcium Level 8.4 Phosphorus Level 7.1 H Magnesium Level 2.3 Albumin 3.2 L Medications Medications Current Medications Apixaban (Eliquis) 2.5 mg BID PO Last administered on 04/01/17 08:11; Admin Dose 2.5 MG; Start 03/31/17 at 09:00; Status Future Hold Atorvastatin Calcium (Lipitor) 80 mg QHS PO Last administered on 04/06/17 20: 51; Admin Dose 80 MG; Start 03/30/17 at 21:00 Bisacodyl (Dulcolax Supp) 10 mg Q24H PRN [place] CONSTIPATION Last administered on 04/01/17 15:16; Admin Dose 10 MG; Start 03/30/17 at 14:30 Lisinopril (Zestril) 2.5 mg BID PO Last administered on 04/06/17 20:52; Admin Dose 2.5 MG; Start 03/30/17 at 21:00 Metoprolol Tartrate (Lopressor) 50 mg BID PO Last administered on 04/06/17 20: 52; Admin Dose 50 MG; Start 03/30/17 at 21:00 Nifedipine (Procardia Xl) 60 mg DAILY PO Last administered on 04/05/17 08:16; Admin Dose 60 MG; Start 03/31/17 at 09:00 Ondansetron HCl (Zofran Inj) 4 mg Q6H PRN IV NAUSEA AND/OR VOMITING; Start at 15:30 Acetaminophen (Tylenol Tab) 650 mg Q6H PRN PO PAIN LEVEL 1-3 OR FEVER; Start 03/30/17 at 15:30 Diagnostic Test (Pha) (Accu-Chek) 1 ea 02 XX Last administered on 04/04/17 02: 10; Admin Dose 1 EA; Start 03/31/17 at 02:00 Miscellaneous Information 1 ea NOTE XX ; Start 03/30/17 at 15:30 Glucose (Glutose) 15 gm Q15M PRN PO DECREASED GLUCOSE; Start 03/30/17 at 15:30 Glucose (Glutose) 22.5 gm Q15M PRN PO DECREASED GLUCOSE; Start 03/30/17 at 15: 30 Dextrose (D50w Syringe) 25 ml Q15M PRN IV DECREASED GLUCOSE; Start 03/30/17 at 15:30 Dextrose (D50w Syringe) 50 ml Q15M PRN IV DECREASED GLUCOSE; Start 03/30/17 at 15:30 Glucagon (Glucagen) 1 mg Q15M PRN IM DECREASED GLUCOSE; Start 03/30/17 at 15: 30 Glucose (Glutose) 15 gm Q15M PRN BUCCAL DECREASED GLUCOSE; Start 03/30/17 at 15:30 Guaifenesin/ Codeine Phosphate (Robitussin Ac Liquid Cup) 5 ml Q4H PRN PO cough ; Start 03/30/17 at 19:30 Lidocaine (Lmx 4% Plus) 1 applic PRN PRN TOP Prior to HD cannulation Last administered on 03/31/17 11:23; Admin Dose 1 APPLIC; Start 03/30/17 at 21:00 Pantoprazole (Protonix Tab) 40 mg DAILY@06 PO Last administered on 04/06/17 08 :43; Admin Dose 40 MG; Start 04/01/17 at 06:00 Heparin Sodium (Porcine) (Heparin (5000 Units/0.5 ml)) 5,000 unit BID SC Last administered on 04/05/17 08:17; Admin Dose 5,000 UNIT; Start 04/01/17 at 21:00 Senna/Docusate Sodium (Senokot-S) 1 tab DAILY PO Last administered on 08:17; Admin Dose 1 TAB; Start 04/03/17 at 12:00 Mineral Oil (Fleet Mineral Oil Enema) 133 ml DAILY PRN [place] constipation Last administered on 04/05/17 16:41; Admin Dose 133 ML; Start 04/03/17 at 12:00 Insulin Glargine (Lantus) 12 unit QHS SC Last administered on 04/06/17 20:54; Admin Dose 12 UNIT; Start 04/05/17 at 21:00 RAYNE FITCH MD Apr 07, 2017 08:58 RAYNE FITCH MD Apr 07, 2017 08:58
[2017-04-07] MEDS: ALBUTEROL 0.083% (NEB) 2.5 MG/3 ML AMP HHN SCH ×4 (09:00→20:36)
[2017-04-07] MEDS: NIFEdipine (XL) 60 MG TAB PO SCH (09:00)
[2017-04-07] MEDS: METOPROLOL 50 MG TAB PO SCH ×2 (09:00→21:16)
[2017-04-07] MEDS: LISINOPRIL 5 MG TAB PO SCH ×2 (09:00→21:16)
[2017-04-07] MEDS: HEPARIN 5,000 UNIT/0.5 ML VIAL SC SCH ×2 (09:00→21:24)
[2017-04-07 09:08] LABS: CREATININE 10.25 mg/dl (0.61-1.24)
--- NOTE | 2017-04-07 10:40 | CONS ---
Date/Time of Note Date/Time of Note DATE: 04/07/17 TIME: 10:38 Assessment/Plan Assessment/Plan Additional Assessment/Plan Assessment and recommendations; 1. Patient admitted with shortness of breath discovered to have very large right pleural effusion, status post attempted thoracentesis only 200 mL of fluid could be removed due to possible underlying multiple loculations. Pleural fluid is lymphocytic which possibly indicative of underlying malignancy. 2. End-stage renal disease, on hemodialysis. Continue current treatment. Patient scheduled for VATS procedure tomorrow. Consultation Date/Type/Reason Admit Date/Time Mar 30, 2017 at 15:04 Initial Consult Date 03/30/17 Type of Consultation: Pulmonary 24 HR Interval Summary Free Text/Dictation Patient's condition is stable. Complains of very minimal shortness of breath. Denies any coughing, hemoptysis or chest pain. General exam; elderly male, awake alert, currently in no distress. Exam/Review of Systems Vital Signs Vitals Vital Signs Date Time Temp Pulse Resp B/P Pulse Ox O2 Delivery O2 Flow Rate FiO2 04/07/17 08:00 Nasal Cannula 3.0 04/07/17 08:00 83 04/07/17 07:45 98.6 20 164/75 95 Intake and Output 04/06/17 04/06/17 04/07/17 15:00 23:00 07:00 Intake Total 640 ml 250 ml Balance 640 ml 250 ml Exam HEENT exam; supple neck, no JVD. No lymphadenopathy. Midline trachea. No thyromegaly. Chest exam; absent breath sounds right lung. Left lung is clear to auscultation. S1-S2 audible, no murmurs. Regular rhythm. Abdomen exam; soft, nontender. No organomegaly. Bowel sounds audible. Extremity exam; no edema. BRIM BLOCKER exam; no focal deficit. Results Result Diagram: 04/07/17 0804 04/07/17 0804 Results 24 hrs Laboratory Tests Test 04/06/17 12:32 04/06/17 17:48 04/06/17 20:37 04/06/17 23:48 Bedside Glucose 156 221 H 227 H 227 H Test 04/07/17 04:44 04/07/17 07:46 04/07/17 08:04 Bedside Glucose 167 269 H White Blood Count 7.9 Red Blood Count 3.70 L Hemoglobin 9.4 L Hematocrit 30.1 L Mean Corpuscular Volume 81.4 L Mean Corpuscular Hemoglobin 25.4 L Mean Corpuscular Hemoglobin Concent 31.2 L Red Cell Distribution Width 13.7 Platelet Count 295 Mean Platelet Volume 10.8 H Neutrophils % 73.4 Lymphocytes % 15.3 Monocytes % 8.0 Eosinophils % 1.8 Basophils % 0.4 Nucleated Red Blood Cells % 0.0 Neutrophils # 5.8 Lymphocytes # 1.2 Monocytes # 0.6 Eosinophils # 0.1 Basophils # 0.0 Nucleated Red Blood Cells # 0.0 Sodium Level 134 L Potassium Level 5.5 H Chloride Level 92 L Carbon Dioxide Level 25 Anion Gap 23 H Blood Urea Nitrogen 103 H Creatinine 10.25 H Glucose Level 264 H Calcium Level 8.4 Phosphorus Level 7.1 H Magnesium Level 2.3 Albumin 3.2 L Medications Medications Current Medications Apixaban (Eliquis) 2.5 mg BID PO Last administered on 04/01/17 08:11; Admin Dose 2.5 MG; Start 03/31/17 at 09:00; Status Future Hold Atorvastatin Calcium (Lipitor) 80 mg QHS PO Last administered on 04/06/17 20: 51; Admin Dose 80 MG; Start 03/30/17 at 21:00 Bisacodyl (Dulcolax Supp) 10 mg Q24H PRN [place] CONSTIPATION Last administered on 04/01/17 15:16; Admin Dose 10 MG; Start 03/30/17 at 14:30 Lisinopril (Zestril) 2.5 mg BID PO Last administered on 04/06/17 20:52; Admin Dose 2.5 MG; Start 03/30/17 at 21:00 Metoprolol Tartrate (Lopressor) 50 mg BID PO Last administered on 04/06/17 20: 52; Admin Dose 50 MG; Start 03/30/17 at 21:00 Nifedipine (Procardia Xl) 60 mg DAILY PO Last administered on 04/05/17 08:16; Admin Dose 60 MG; Start 03/31/17 at 09:00 Ondansetron HCl (Zofran Inj) 4 mg Q6H PRN IV NAUSEA AND/OR VOMITING; Start at 15:30 Acetaminophen (Tylenol Tab) 650 mg Q6H PRN PO PAIN LEVEL 1-3 OR FEVER; Start 03/30/17 at 15:30 Diagnostic Test (Pha) (Accu-Chek) 1 ea 02 XX Last administered on 04/04/17 02: 10; Admin Dose 1 EA; Start 03/31/17 at 02:00 Miscellaneous Information 1 ea NOTE XX ; Start 03/30/17 at 15:30 Glucose (Glutose) 15 gm Q15M PRN PO DECREASED GLUCOSE; Start 03/30/17 at 15:30 Glucose (Glutose) 22.5 gm Q15M PRN PO DECREASED GLUCOSE; Start 03/30/17 at 15: 30 Dextrose (D50w Syringe) 25 ml Q15M PRN IV DECREASED GLUCOSE; Start 03/30/17 at 15:30 Dextrose (D50w Syringe) 50 ml Q15M PRN IV DECREASED GLUCOSE; Start 03/30/17 at 15:30 Glucagon (Glucagen) 1 mg Q15M PRN IM DECREASED GLUCOSE; Start 03/30/17 at 15: 30 Glucose (Glutose) 15 gm Q15M PRN BUCCAL DECREASED GLUCOSE; Start 03/30/17 at 15:30 Guaifenesin/ Codeine Phosphate (Robitussin Ac Liquid Cup) 5 ml Q4H PRN PO cough ; Start 03/30/17 at 19:30 Lidocaine (Lmx 4% Plus) 1 applic PRN PRN TOP Prior to HD cannulation Last administered on 03/31/17 11:23; Admin Dose 1 APPLIC; Start 03/30/17 at 21:00 Pantoprazole (Protonix Tab) 40 mg DAILY@06 PO Last administered on 04/06/17 08 :43; Admin Dose 40 MG; Start 04/01/17 at 06:00 Heparin Sodium (Porcine) (Heparin (5000 Units/0.5 ml)) 5,000 unit BID SC Last administered on 04/05/17 08:17; Admin Dose 5,000 UNIT; Start 04/01/17 at 21:00 Senna/Docusate Sodium (Senokot-S) 1 tab DAILY PO Last administered on 08:17; Admin Dose 1 TAB; Start 04/03/17 at 12:00 Mineral Oil (Fleet Mineral Oil Enema) 133 ml DAILY PRN [place] constipation Last administered on 04/05/17 16:41; Admin Dose 133 ML; Start 04/03/17 at 12:00 Insulin Glargine (Lantus) 12 unit QHS SC Last administered on 04/06/17t 20:54; Admin Dose 12 UNIT; Start 04/05/17 at 21:00 TRACEY HAWKINS Apr 07, 2017 10:40
--- NOTE | 2017-04-07 15:10 | RADRPT ---
Echocardiogram Report Patient Name: WENDY NGUYEN Gender: Male Date: 1945 Study Date: 31-Mar-2017 Sap Architect: Manny Norton [facility] Location: 112 Ref. Physician: RAE LUNDY Quality: Good Procedures: Transthoracic echocardiogram with complete 2D, M-Mode, and doppler examination. Indications: Myocardial Infarction. Chest Pain. Shortness of breath. 2D/M Mode Doppler Measurement Value Normal Ranges Measurement Value Normal Ranges LVIDd 2D 4.2 3.5 - 5.6 cm AV Peak Carlos 1.2 m/sec LVIDs 2D 2.3 2.1 - 4.1 cm AV Peak PG 5.9 mmHg LVPWd 2D 1.3 0.6 - 1.1 cm LVOT Peak Carlos 1.2 m/sec IVSd 2D 1.2 0.6 - 1.1 cm LVOT Peak PG 5.8 mmHg AoR Diam 2D 2.7 2.0 - 3.7 cm MV E Peak Carlos 0.7 m/sec EDV 2D 79.3 cm3 MV A Peak Carlos 1.0 m/sec ESV 2D 12.3 cm3 MV E/A 0.7 LA Dimen 2D 2.8 2.3 - 4.0 cm MV Decel Time 220 msec MV Decel Wetzel 3 MV E/A 0.7 TR Peak Carlos 2.8 m/sec TR Peak PG 30.4 mmHg RVSP 33.0 mmHg Findings Left Ventricle: Normal left ventricular systolic function. Normal left ventricular cavity size. Mild concentric left ventricular hypertrophy. Ejection fraction is visually estimated at 65 %. Tissue Doppler/Mitral Doppler indices are consistent with impaired relaxation (Stage I diastolic dysfunction). Right Ventricle: Normal right ventricular size. Normal right ventricular systolic function. Linear artifact in right ventricle suggestive of catheter, pacer lead, or ICD lead. Left Atrium: The left atrium is normal in size. Right Atrium: The right atrium is normal in size. Mitral Valve: Mitral valve leaflets appear mildly thickened. Mild mitral annular calcification. Mild mitral valve regurgitation. Aortic Valve: No significant aortic stenosis or insufficiency. Aortic cusps appear mildly calcified. Tricuspid Valve: Normal appearance of the tricuspid valve. Estimated peak PA systolic pressure 33 mmHg. There is trace tricuspid regurgitation. Pulmonic Valve: Normal pulmonic valve appearance. Pericardium: Trivial pericardial effusion. Pleural effusion seen. Aorta: Normal aortic root. IVC: Normal size and normal respiratory collapse consistent with normal right atrial pressure. Conclusions Normal left ventricular systolic function. Normal left ventricular cavity size. Mild concentric left ventricular hypertrophy. Ejection fraction is visually estimated at 65 %. Tissue Doppler/Mitral Doppler indices are consistent with impaired relaxation (Stage I diastolic dysfunction). Normal right ventricular size. Normal right ventricular systolic function. Linear artifact in right ventricle suggestive of catheter, pacer lead, or ICD lead. The left atrium is normal in size. The right atrium is normal in size. Mitral valve leaflets appear mildly thickened. Mild mitral annular calcification. Mild mitral valve regurgitation. No significant aortic stenosis or insufficiency. Aortic cusps appear mildly calcified. Normal appearance of the tricuspid valve. Estimated peak PA systolic pressure 33 mmHg. There is trace tricuspid regurgitation. Electronically Signed By: Rae Lundy 07-Apr-2017 15:09:58 -0800 Patient Name: WENDY NGUYEN Study Date: 31-Mar-2017 [id number]
--- NOTE | 2017-04-07 15:12 | PN ---
Date/Time of Note Date/Time of Note DATE: 04/07/17 TIME: 15:12 Assessment/Plan Lines/Catheters IV Catheter Type (from Nrsg): Mid Line Yañez in Place (from Nrsg): No Assessment/Plan Chief Complaint/Hosp Course IMPRESSION: Right-sided pleural effusion which appears to be loculated. RECOMMENDATIONS: This patient would benefit from video-assisted thoracic surgery and decortication. VATS cancelled by anest will need aggresive HD prior to surgery and pt has been off of plavix Plan for surgery tomorrow Risk and benefits explained Will discuss with the referring physicians. Problems: Subjective 24 Hr Interval Summary Constitutional: improved Pain Control: mild Exam/Review of Systems Vital Signs Vitals Vital Signs Date Time Temp Pulse Resp B/P Pulse Ox O2 Delivery O2 Flow Rate FiO2 04/07/17 12:14 97.6 78 20 152/67 94 04/07/17 08:00 Nasal Cannula 3.0 Intake and Output 04/06/17 04/06/17 04/07/17 15:00 23:00 07:00 Intake Total 640 ml 250 ml Balance 640 ml 250 ml Exam ENMT: mucosa pink and moist, nl external ears & nose, nl lips & teeth, nl nasal mucosa & septum Neck: non-tender, supple Respiratory: clear to auscultation, normal air movement Cardiovascular: nl pulses, regular rate and rhythm Gastrointestinal: nl liver, spleen, non-tender, soft Results Result Diagram: 04/07/17 0804 04/07/17 0804 SHAYLA YAÑEZ MD Apr 07, 2017 15:12
--- NOTE | 2017-04-07 15:45 | PN ---
Date/Time of Note Date/Time of Note DATE: 04/07/17 TIME: 15:44 Assessment/Plan VTE Prophylaxis VTE Prophylaxis Intervention: SCD's Lines/Catheters IV Catheter Type (from Nrsg): Mid Line Urinary Cath still in place: No Assessment/Plan Chief Complaint/Hosp Course s: 12.4 no acute changes, but patient's son refusing surgery due to HD 12.5 no acute complaints o: Physical exam General: Patient is laying in bed and answers questions appropriately Mentation: Patient is alert and oriented 4, Head: Normocephalic atraumatic Eyes: EOMI, pupils reactive to light Neck: Supple, nontender, midline Respiratory: coarse to auscultation bilaterally Cardiovascular: regular rate, no obvious murmurs Gastrointestinal: non-tender to palpation, bowel sounds heard. Neurological: Moves all extremities spontaneously Skin: No new skin lesions Assessment/Plan Acute hypoxic respiratory failure secondary to pleural effusion in right lung- improving - Plans for VATS tomorrow and per Dr. uHerta would ideally like to perform HD prior to the procedure to ensure patient close to dry weight to assist with extubation after procedure - Patient remains stable respiratory brewer and saturating >90% on NC - CT surgery on board and appreciate consultation. VATS tmrw and will keep NPO after midnight - Cardiology clearance obtained and okay to hold Plavix and Eliquis prior to VATS. Currently has Heparin on board and will hold after midnight - HRCT chest shows large right pleural effusion but appeared to have multiple loculated pockets on US - Pulmonology consultation appreciated. recommending large bore chest tube - Bronchodilators as needed Large Right pleural effusion s/p thoracentesis 03/30 - 250 cc of fluid was removed but CXR still showed complete white out of right lung - Pulm on board and consultation appreciated Acute on chronic CHF - Last ECHO 10/2016 showed EF 65% with stage 1 diastolic dysfunction - Monitor I/O and daily weights - CXR shows cardiomegaly - Cardiology consultation appreciated and cleared for VATS ESRD on HD - patient on scheduled - Nephrology consultation appreciated Hypertensive urgency - BP controlled on home medications DM, type 2 - Will increase lantus dosing to 12 units - ISS and accuchecks - A1c 6.9 Heart block/bradycardia with PPM - cardiology on board CAD s/p stent 10/2016 - continue on home medications - Holding Plavix Atrial fibrillation - on BB, Eliquis on hold - rate controlled Oliguria - voided small amount yesterday - Lasix per cards Constipation - given Senna S and suppository. Will try mineral oil enema Disposition - scheduled for VATS tmrw, as patient's family was against surgery after HD, as patient has hx of doing unwell after HD, but CT surgery will not perform surgery unless patient dialyzed before surgery. - NPO after midnight and hold Heparin Problems: Exam/Review of Systems Vital Signs Vitals Vital Signs Date Time Temp Pulse Resp B/P Pulse Ox O2 Delivery O2 Flow Rate FiO2 04/07/17 12:14 97.6 78 20 152/67 94 04/07/17 08:00 Nasal Cannula 3.0 Intake and Output 04/06/17 04/06/17 04/07/17 15:00 23:00 07:00 Intake Total 640 ml 250 ml Balance 640 ml 250 ml Results Result Diagram: 04/07/17 0804 04/07/17 0804 Results 24 hrs Laboratory Tests Test 04/06/17 17:48 04/06/17 20:37 04/06/17 23:48 04/07/17 04:44 Bedside Glucose 221 H 227 H 227 H 167 Test 04/07/17 07:46 04/07/17 08:04 04/07/17 11:48 04/07/17 14:19 Bedside Glucose 269 H 222 H 160 White Blood Count 7.9 Red Blood Count 3.70 L Hemoglobin 9.4 L Hematocrit 30.1 L Mean Corpuscular Volume 81.4 L Mean Corpuscular Hemoglobin 25.4 L Mean Corpuscular Hemoglobin Concent 31.2 L Red Cell Distribution Width 13.7 Platelet Count 295 Mean Platelet Volume 10.8 H Neutrophils % 73.4 Lymphocytes % 15.3 Monocytes % 8.0 Eosinophils % 1.8 Basophils % 0.4 Nucleated Red Blood Cells % 0.0 Neutrophils # 5.8 Lymphocytes # 1.2 Monocytes # 0.6 Eosinophils # 0.1 Basophils # 0.0 Nucleated Red Blood Cells # 0.0 Sodium Level 134 L Potassium Level 5.5 H Chloride Level 92 L Carbon Dioxide Level 25 Anion Gap 23 H Blood Urea Nitrogen 103 H Creatinine 10.25 H Glucose Level 264 H Calcium Level 8.4 Phosphorus Level 7.1 H Magnesium Level 2.3 Albumin 3.2 L Medications Medications Current Medications Apixaban (Eliquis) 2.5 mg BID PO Last administered on 04/01/17 08:11; Admin Dose 2.5 MG; Start 03/31/17 at 09:00; Status Future Hold Atorvastatin Calcium (Lipitor) 80 mg QHS PO Last administered on 04/06/17 20: 51; Admin Dose 80 MG; Start 03/30/17 at 21:00 Bisacodyl (Dulcolax Supp) 10 mg Q24H PRN [place] CONSTIPATION Last administered on 04/01/17 15:16; Admin Dose 10 MG; Start 03/30/17 at 14:30 Lisinopril (Zestril) 2.5 mg BID PO Last administered on 04/06/17 20:52; Admin Dose 2.5 MG; Start 03/30/17 at 21:00 Metoprolol Tartrate (Lopressor) 50 mg BID PO Last administered on 04/06/17 20: 52; Admin Dose 50 MG; Start 03/30/17 at 21:00 Nifedipine (Procardia Xl) 60 mg DAILY PO Last administered on 04/05/17 08:16; Admin Dose 60 MG; Start 03/31/17 at 09:00 Ondansetron HCl (Zofran Inj) 4 mg Q6H PRN IV NAUSEA AND/OR VOMITING; Start at 15:30 Acetaminophen (Tylenol Tab) 650 mg Q6H PRN PO PAIN LEVEL 1-3 OR FEVER; Start 03/30/17 at 15:30 Diagnostic Test (Pha) (Accu-Chek) 1 ea 02 XX Last administered on 04/04/17 02: 10; Admin Dose 1 EA; Start 03/31/17 at 02:00 Miscellaneous Information 1 ea NOTE XX ; Start 03/30/17 at 15:30 Glucose (Glutose) 15 gm Q15M PRN PO DECREASED GLUCOSE; Start 03/30/17 at 15:30 Glucose (Glutose) 22.5 gm Q15M PRN PO DECREASED GLUCOSE; Start 03/30/17 at 15: 30 Dextrose (D50w Syringe) 25 ml Q15M PRN IV DECREASED GLUCOSE; Start 03/30/17 at 15:30 Dextrose (D50w Syringe) 50 ml Q15M PRN IV DECREASED GLUCOSE; Start 03/30/17 at 15:30 Glucagon (Glucagen) 1 mg Q15M PRN IM DECREASED GLUCOSE; Start 03/30/17 at 15: 30 Glucose (Glutose) 15 gm Q15M PRN BUCCAL DECREASED GLUCOSE; Start 03/30/17 at 15:30 Guaifenesin/ Codeine Phosphate (Robitussin Ac Liquid Cup) 5 ml Q4H PRN PO cough ; Start 03/30/17 at 19:30 Lidocaine (Lmx 4% Plus) 1 applic PRN PRN TOP Prior to HD cannulation Last administered on 03/31/17 11:23; Admin Dose 1 APPLIC; Start 03/30/17 at 21:00 Pantoprazole (Protonix Tab) 40 mg DAILY@06 PO Last administered on 04/06/17 08 :43; Admin Dose 40 MG; Start 04/01/17 at 06:00 Heparin Sodium (Porcine) (Heparin (5000 Units/0.5 ml)) 5,000 unit BID SC Last administered on 04/05/17 08:17; Admin Dose 5,000 UNIT; Start 04/01/17 at 21:00 Senna/Docusate Sodium (Senokot-S) 1 tab DAILY PO Last administered on 08:17; Admin Dose 1 TAB; Start 04/03/17 at 12:00 Mineral Oil (Fleet Mineral Oil Enema) 133 ml DAILY PRN [place] constipation Last administered on 04/05/17 16:41; Admin Dose 133 ML; Start 04/03/17 at 12:00 Insulin Glargine (Lantus) 12 unit QHS SC Last administered on 04/06/17 20:54; Admin Dose 12 UNIT; Start 04/05/17 at 21:00 ANANTH PATEL Apr 07, 2017 15:45
--- NOTE | 2017-04-07 18:06 | CONS ---
Date/Time of Note Date/Time of Note DATE: 04/07/17 TIME: 18:04 Consult Date/Type/Reason Admit Date/Time Mar 30, 2017 at 15:04 Initial Consult Date 03/30/17 Type of Consultation: Card Objective Vital Signs Date Time Temp Pulse Resp B/P Pulse Ox O2 Delivery O2 Flow Rate FiO2 04/07/17 16:15 98.5 100 20 123/65 95 04/07/17 08:00 Nasal Cannula 3.0 Intake and Output 04/06/17 04/06/17 04/07/17 15:00 23:00 07:00 Intake Total 640 ml 250 ml Balance 640 ml 250 ml Results/Medications Result Diagram: 04/07/17 0804 04/07/17 0804 Results 24 hrs Laboratory Tests Test 04/06/17 20:37 04/06/17 23:48 04/07/17 04:44 04/07/17 07:46 Bedside Glucose 227 H 227 H 167 269 H Test 04/07/17 08:04 04/07/17 11:48 04/07/17 14:19 04/07/17 17:13 White Blood Count 7.9 Red Blood Count 3.70 L Hemoglobin 9.4 L Hematocrit 30.1 L Mean Corpuscular Volume 81.4 L Mean Corpuscular Hemoglobin 25.4 L Mean Corpuscular Hemoglobin Concent 31.2 L Red Cell Distribution Width 13.7 Platelet Count 295 Mean Platelet Volume 10.8 H Neutrophils % 73.4 Lymphocytes % 15.3 Monocytes % 8.0 Eosinophils % 1.8 Basophils % 0.4 Nucleated Red Blood Cells % 0.0 Neutrophils # 5.8 Lymphocytes # 1.2 Monocytes # 0.6 Eosinophils # 0.1 Basophils # 0.0 Nucleated Red Blood Cells # 0.0 Sodium Level 134 L Potassium Level 5.5 H Chloride Level 92 L Carbon Dioxide Level 25 Anion Gap 23 H Blood Urea Nitrogen 103 H Creatinine 10.25 H Glucose Level 264 H Calcium Level 8.4 Phosphorus Level 7.1 H Magnesium Level 2.3 Albumin 3.2 L Bedside Glucose 222 H 160 198 Medications Current Medications Apixaban (Eliquis) 2.5 mg BID PO Last administered on 04/01/17t 08:11; Admin Dose 2.5 MG; Start 03/31/17 at 09:00; Status Future Hold Atorvastatin Calcium (Lipitor) 80 mg QHS PO Last administered on 04/06/17 20: 51; Admin Dose 80 MG; Start 03/30/17 at 21:00 Bisacodyl (Dulcolax Supp) 10 mg Q24H PRN [place] CONSTIPATION Last administered on 04/01/17 15:16; Admin Dose 10 MG; Start 03/30/17 at 14:30 Lisinopril (Zestril) 2.5 mg BID PO Last administered on 04/06/17 20:52; Admin Dose 2.5 MG; Start 03/30/17 at 21:00 Metoprolol Tartrate (Lopressor) 50 mg BID PO Last administered on 04/06/17 20: 52; Admin Dose 50 MG; Start 03/30/17 at 21:00 Nifedipine (Procardia Xl) 60 mg DAILY PO Last administered on 04/05/17 08:16; Admin Dose 60 MG; Start 03/31/17 at 09:00 Ondansetron HCl (Zofran Inj) 4 mg Q6H PRN IV NAUSEA AND/OR VOMITING; Start at 15:30 Acetaminophen (Tylenol Tab) 650 mg Q6H PRN PO PAIN LEVEL 1-3 OR FEVER; Start 03/30/17 at 15:30 Diagnostic Test (Pha) (Accu-Chek) 1 ea 02 XX Last administered on 04/04/17 02: 10; Admin Dose 1 EA; Start 03/31/17 at 02:00 Miscellaneous Information 1 ea NOTE XX ; Start 03/30/17 at 15:30 Glucose (Glutose) 15 gm Q15M PRN PO DECREASED GLUCOSE; Start 03/30/17 at 15:30 Glucose (Glutose) 22.5 gm Q15M PRN PO DECREASED GLUCOSE; Start 03/30/17 at 15: 30 Dextrose (D50w Syringe) 25 ml Q15M PRN IV DECREASED GLUCOSE; Start 03/30/17 at 15:30 Dextrose (D50w Syringe) 50 ml Q15M PRN IV DECREASED GLUCOSE; Start 03/30/17 at 15:30 Glucagon (Glucagen) 1 mg Q15M PRN IM DECREASED GLUCOSE; Start 03/30/17 at 15: 30 Glucose (Glutose) 15 gm Q15M PRN BUCCAL DECREASED GLUCOSE; Start 03/30/17 at 15:30 Guaifenesin/ Codeine Phosphate (Robitussin Ac Liquid Cup) 5 ml Q4H PRN PO cough ; Start 03/30/17 at 19:30 Lidocaine (Lmx 4% Plus) 1 applic PRN PRN TOP Prior to HD cannulation Last administered on 03/31/17 11:23; Admin Dose 1 APPLIC; Start 03/30/17 at 21:00 Pantoprazole (Protonix Tab) 40 mg DAILY@06 PO Last administered on 04/06/17 08 :43; Admin Dose 40 MG; Start 04/01/17 at 06:00 Heparin Sodium (Porcine) (Heparin (5000 Units/0.5 ml)) 5,000 unit BID SC Last administered on 04/05/17 08:17; Admin Dose 5,000 UNIT; Start 04/01/17 at 21:00 Senna/Docusate Sodium (Senokot-S) 1 tab DAILY PO Last administered on 08:17; Admin Dose 1 TAB; Start 04/03/17 at 12:00 Mineral Oil (Fleet Mineral Oil Enema) 133 ml DAILY PRN [place] constipation Last administered on 04/05/17 16:41; Admin Dose 133 ML; Start 04/03/17 at 12:00 Insulin Glargine (Lantus) 12 unit QHS SC Last administered on 04/06/17 20:54; Admin Dose 12 UNIT; Start 04/05/17 at 21:00 Assessment/Plan Chief Complaint/Hosp Course Patient is know to me form out pt with history of DE with PCI of RCA, SSS s/p st sayra PPM implantation, HTN, ESRD on HD, Severe PAD and Venous disease, HLD who presented to ER with Severe SOB, found to have white out of his right lung, likely PNA, s/p thoracocentesis with 250cc fluid only. No WBC, NO fever, Less likely this is Infection at this extent, I would get Contrast CT with [place]. Problems: Additional Assessment/Plan Pt is mod risk for mild to mod risk VATS OK to go stable restart meds lai once clear for surgery. HUNTER BASSETT MD Apr 07, 2017 18:06
[2017-04-07] MEDS: ATORVASTATIN 80 MG TAB PO SCH (21:16)
[2017-04-07] MEDS: INSULIN GLARGINE [LANtus] 3 ML PEN SC SCH (21:24)
[2017-04-08] VITALS (19 sets, daily range): BP systolic 103–173; BP diastolic 49–80; PULSE 76–96; RESP 16–20
[2017-04-08] MEDS: ACCU-CHEK XX SCH (05:33)
[2017-04-08] MEDS: PANTOPRAZOLE (EC) 40 MG TAB PO SCH (05:36)
[2017-04-08] MEDS: INSULIN ASPART [NOVOLOG] 3 ML PEN SC SCH ×4 (08:00→21:52)
[2017-04-08] MEDS: SEVELAMER CARBONATE 0.8 GM PKT PO SCH ×3 (08:00→17:24)
[2017-04-08 08:22] LABS: BASOPHILS % 0.4 % (0.0-2.0); EOSINOPHILS # 0.1 10^3/ul (0.0-0.5); EOSINOPHILS % 1.1 % (0.0-7.0); HEMATOCRIT 31.6 % (42.0-52.0); HEMOGLOBIN 9.8 g/dl (14.0-18.0); LYMPHOCYTES # 1.2 10^3/ul (0.8-2.9); LYMPHOCYTES % 13.1 % (15.0-51.0); MEAN CORPUSCULAR HEMOGLOBIN 25.3 pg (29.0-33.0); MEAN CORPUSCULAR VOLUME 81.4 fl (82.0-101.0); MONOCYTE # 0.7 10^3/ul (0.3-0.9); MONOCYTES % 7.8 % (0.0-11.0); NEUTROPHIL # 6.8 10^3/ul (1.6-7.5); NEUTROPHILS % 76.4 % (39.0-77.0); PLATELET COUNT 302 10^3/UL (140-415); RED BLOOD COUNT 3.88 10^6/ul (4.70-6.10); RED CELL DISTRIBUTION WIDTH 13.8 % (11.5-14.5); WHITE BLOOD COUNT 8.9 10^3/ul (4.8-10.8)
[2017-04-08 08:38] LABS: ALBUMIN 3.2 g/dl (3.3-4.9); CALCIUM 9.1 mg/dl (8.4-10.2); CREATININE 7.69 mg/dl (0.61-1.24); MAGNESIUM 2.2 mg/dl (1.7-2.5); PHOSPHORUS 6.2 mg/dl (2.5-4.9); POTASSIUM 4.6 mmol/L (3.5-5.1)
[2017-04-08] MEDS: METOPROLOL 50 MG TAB PO SCH ×2 (09:00→21:49)
[2017-04-08] MEDS: NIFEdipine (XL) 60 MG TAB PO SCH (09:00)
[2017-04-08] MEDS: SENNA/DOCUSATE NA (8.6MG/50MG) TAB PO SCH (09:00)
[2017-04-08] MEDS: LISINOPRIL 5 MG TAB PO SCH ×2 (09:00→21:49)
[2017-04-08] MEDS: HEPARIN 5,000 UNIT/0.5 ML VIAL SC SCH ×2 (09:00→21:52)
[2017-04-08] MEDS: ALBUTEROL 0.083% (NEB) 2.5 MG/3 ML AMP HHN SCH ×4 (09:20→21:36)
--- NOTE | 2017-04-08 10:36 | CONS ---
Date/Time of Note Date/Time of Note DATE: 04/08/17 TIME: 10:35 Assessment/Plan Assessment/Plan Additional Assessment/Plan Assessment and recommendations; 1. Patient with history of renal failure on hemodialysis admitted for shortness of breath discovered to have very large right pleural effusion which appears to be multiloculated. Etiology is unclear at this point. The fluid lymphocytic rich possibly indicative of underlying malignancy. However loculated parapneumonic effusion also is a distinct possibility. 2. History of hypertension or diabetes. Next Patient scheduled for VATS procedure today. Continue current supportive care. Consultation Date/Type/Reason Admit Date/Time Mar 30, 2017 at 15:04 Initial Consult Date 03/30/17 Type of Consultation: Pulmonary 24 HR Interval Summary Free Text/Dictation Patient's condition is stable. Complains of very minimal shortness of breath. Denies any chest pain, wheezing, cough or sputum production. General exam; elderly male, awake alert, currently in no distress. Exam/Review of Systems Vital Signs Vitals Vital Signs Date Time Temp Pulse Resp B/P Pulse Ox O2 Delivery O2 Flow Rate FiO2 04/08/17 09:22 98 20 97 Nasal Cannula 2.0 04/08/17 08:07 98.5 130/68 Intake and Output 04/07/17 04/07/17 04/08/17 15:00 23:00 07:00 Intake Total 500 ml 540 ml 1000 ml Output Total 3000 ml 1500 ml Balance -2500 ml 540 ml -500 ml Exam HEENT exam; supple neck, positive JVD. No lymphadenopathy. Midline trachea. No thyromegaly. No neck masses. Chest exam; diminished breath sounds right lung. Left lung is clear to auscultation. S1-S2 audible, no murmurs. Abdomen exam; soft, nontender. No organomegaly. Bowel sounds audible. Extremity exam; trace edema. 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 Results Result Diagram: 04/08/17 0803 04/08/17 0803 Results 24 hrs Laboratory Tests Test 04/07/17 11:48 04/07/17 14:19 04/07/17 17:13 04/07/17 21:14 Bedside Glucose 222 H 160 198 210 Test 04/08/17 05:33 04/08/17 08:03 04/08/17 08:05 Bedside Glucose 188 177 White Blood Count 8.9 Red Blood Count 3.88 L Hemoglobin 9.8 L Hematocrit 31.6 L Mean Corpuscular Volume 81.4 L Mean Corpuscular Hemoglobin 25.3 L Mean Corpuscular Hemoglobin Concent 31.0 L Red Cell Distribution Width 13.8 Platelet Count 302 Mean Platelet Volume 11.0 H Neutrophils % 76.4 Lymphocytes % 13.1 L Monocytes % 7.8 Eosinophils % 1.1 Basophils % 0.4 Nucleated Red Blood Cells % 0.0 Neutrophils # 6.8 Lymphocytes # 1.2 Monocytes # 0.7 Eosinophils # 0.1 Basophils # 0.0 Nucleated Red Blood Cells # 0.0 Sodium Level 138 Potassium Level 4.6 Chloride Level 94 L Carbon Dioxide Level 31 Anion Gap 18 H Blood Urea Nitrogen 59 #H Creatinine 7.69 #H Glucose Level 184 Calcium Level 9.1 Phosphorus Level 6.2 H Magnesium Level 2.2 Albumin 3.2 L Medications Medications Current Medications Apixaban (Eliquis) 2.5 mg BID PO Last administered on 04/01/17 08:11; Admin Dose 2.5 MG; Start 03/31/17 at 09:00; Status Future Hold Atorvastatin Calcium (Lipitor) 80 mg QHS PO Last administered on 04/07/17 21: 16; Admin Dose 80 MG; Start 03/30/17 at 21:00 Bisacodyl (Dulcolax Supp) 10 mg Q24H PRN [place] CONSTIPATION Last administered on 04/01/17 15:16; Admin Dose 10 MG; Start 03/30/17 at 14:30 Lisinopril (Zestril) 2.5 mg BID PO Last administered on 04/07/17 21:16; Admin Dose 2.5 MG; Start 03/30/17 at 21:00 Metoprolol Tartrate (Lopressor) 50 mg BID PO Last administered on 04/07/17 21: 16; Admin Dose 50 MG; Start 03/30/17 at 21:00 Nifedipine (Procardia Xl) 60 mg DAILY PO Last administered on 04/05/17 08:16; Admin Dose 60 MG; Start 03/31/17 at 09:00 Ondansetron HCl (Zofran Inj) 4 mg Q6H PRN IV NAUSEA AND/OR VOMITING; Start at 15:30 Acetaminophen (Tylenol Tab) 650 mg Q6H PRN PO PAIN LEVEL 1-3 OR FEVER; Start 03/30/17 at 15:30 Diagnostic Test (Pha) (Accu-Chek) 1 ea 02 XX Last administered on 04/08/17 05: 33; Admin Dose 1 EA; Start 03/31/17 at 02:00 Miscellaneous Information 1 ea NOTE XX ; Start 03/30/17 at 15:30 Glucose (Glutose) 15 gm Q15M PRN PO DECREASED GLUCOSE; Start 03/30/17 at 15:30 Glucose (Glutose) 22.5 gm Q15M PRN PO DECREASED GLUCOSE; Start 03/30/17 at 15: 30 Dextrose (D50w Syringe) 25 ml Q15M PRN IV DECREASED GLUCOSE; Start 03/30/17 at 15:30 Dextrose (D50w Syringe) 50 ml Q15M PRN IV DECREASED GLUCOSE; Start 03/30/17 at 15:30 Glucagon (Glucagen) 1 mg Q15M PRN IM DECREASED GLUCOSE; Start 03/30/17 at 15: 30 Glucose (Glutose) 15 gm Q15M PRN BUCCAL DECREASED GLUCOSE; Start 03/30/17 at 15:30 Guaifenesin/ Codeine Phosphate (Robitussin Ac Liquid Cup) 5 ml Q4H PRN PO cough ; Start 03/30/17 at 19:30 Lidocaine (Lmx 4% Plus) 1 applic PRN PRN TOP Prior to HD cannulation Last administered on 03/31/17 11:23; Admin Dose 1 APPLIC; Start 03/30/17 at 21:00 Pantoprazole (Protonix Tab) 40 mg DAILY@06 PO Last administered on 04/08/17 05 :36; Admin Dose 40 MG; Start 04/01/17 at 06:00 Heparin Sodium (Porcine) (Heparin (5000 Units/0.5 ml)) 5,000 unit BID SC Last administered on 04/07/17 21:24; Admin Dose 5,000 UNIT; Start 04/01/17 at 21:00 Senna/Docusate Sodium (Senokot-S) 1 tab DAILY PO Last administered on 08:17; Admin Dose 1 TAB; Start 04/03/17 at 12:00 Mineral Oil (Fleet Mineral Oil Enema) 133 ml DAILY PRN [place] constipation Last administered on 04/05/17 16:41; Admin Dose 133 ML; Start 04/03/17 at 12:00 Insulin Glargine (Lantus) 12 unit QHS SC Last administered on 04/07/17t 21:24; Admin Dose 12 UNIT; Start 04/05/17 at 21:00 TRACEY HAWKINS Apr 08, 2017 10:36
--- NOTE | 2017-04-08 15:03 | PN ---
Date/Time of Note Date/Time of Note DATE: 04/08/17 TIME: 15:02 Assessment/Plan VTE Prophylaxis VTE Prophylaxis Intervention: SCD's Lines/Catheters IV Catheter Type (from Nrsg): Mid Line Urinary Cath still in place: No Assessment/Plan Chief Complaint/Hosp Course s: 12.4 no acute changes, but patient's son refusing surgery due to HD 12.5 no acute complaints 12.6 no acute complaints, awaiting surgery o: Physical exam General: Patient is laying in bed and answers questions appropriately Mentation: Patient is alert and oriented 4, Head: Normocephalic atraumatic Eyes: EOMI, pupils reactive to light Neck: Supple, nontender, midline Respiratory: coarse to auscultation bilaterally Cardiovascular: regular rate, no obvious murmurs Gastrointestinal: non-tender to palpation, bowel sounds heard. Neurological: Moves all extremities spontaneously Skin: No new skin lesions Assessment/Plan Acute hypoxic respiratory failure secondary to pleural effusion in right lung- improving - Plans for VATS tomorrow and per Dr. Huerta would ideally like to perform HD prior to the procedure to ensure patient close to dry weight to assist with extubation after procedure - Patient remains stable respiratory brewer and saturating >90% on NC - CT surgery on board and appreciate consultation. VATS today - Cardiology clearance obtained and okay to hold Plavix and Eliquis prior to VATS. - HRCT chest shows large right pleural effusion but appeared to have multiple loculated pockets on US - Pulmonology consultation appreciated. recommending large bore chest tube - Bronchodilators as needed Large Right pleural effusion s/p thoracentesis 03/30 - 250 cc of fluid was removed but CXR still showed complete white out of right lung - Pulm on board and consultation appreciated Acute on chronic CHF - Last ECHO 10/2016 showed EF 65% with stage 1 diastolic dysfunction - Monitor I/O and daily weights - CXR shows cardiomegaly - Cardiology consultation appreciated and cleared for VATS ESRD on HD - patient on scheduled - Nephrology consultation appreciated Hypertensive urgency - BP controlled on home medications DM, type 2 - Will increase lantus dosing to 12 units - ISS and accuchecks - A1c 6.9 Heart block/bradycardia with PPM - cardiology on board CAD s/p stent 10/2016 - continue on home medications - Holding Plavix Atrial fibrillation - on BB, Eliquis on hold - rate controlled Oliguria - on HD Constipation - given Senna S and suppository. Will try mineral oil enema Disposition - VATS today Problems: Exam/Review of Systems Vital Signs Vitals Vital Signs Date Time Temp Pulse Resp B/P Pulse Ox O2 Delivery O2 Flow Rate FiO2 04/08/17 14:01 2.0 04/08/17 12:22 92 04/08/17 11:56 98.1 20 137/61 93 04/08/17 09:22 Nasal Cannula Intake and Output 04/07/17 04/07/17 04/08/17 15:00 23:00 07:00 Intake Total 500 ml 540 ml 1000 ml Output Total 3000 ml 1500 ml Balance -2500 ml 540 ml -500 ml Results Result Diagram: 04/08/17 0803 04/08/17 0803 Results 24 hrs Laboratory Tests Test 04/07/17 17:13 04/07/17 21:14 04/08/17 05:33 04/08/17 08:03 Bedside Glucose 198 210 188 White Blood Count 8.9 Red Blood Count 3.88 L Hemoglobin 9.8 L Hematocrit 31.6 L Mean Corpuscular Volume 81.4 L Mean Corpuscular Hemoglobin 25.3 L Mean Corpuscular Hemoglobin Concent 31.0 L Red Cell Distribution Width 13.8 Platelet Count 302 Mean Platelet Volume 11.0 H Neutrophils % 76.4 Lymphocytes % 13.1 L Monocytes % 7.8 Eosinophils % 1.1 Basophils % 0.4 Nucleated Red Blood Cells % 0.0 Neutrophils # 6.8 Lymphocytes # 1.2 Monocytes # 0.7 Eosinophils # 0.1 Basophils # 0.0 Nucleated Red Blood Cells # 0.0 Sodium Level 138 Potassium Level 4.6 Chloride Level 94 L Carbon Dioxide Level 31 Anion Gap 18 H Blood Urea Nitrogen 59 #H Creatinine 7.69 #H Glucose Level 184 Calcium Level 9.1 Phosphorus Level 6.2 H Magnesium Level 2.2 Albumin 3.2 L Test 04/08/17 08:05 04/08/17 11:32 Bedside Glucose 177 183 Medications Medications Current Medications Apixaban (Eliquis) 2.5 mg BID PO Last administered on 04/01/17 08:11; Admin Dose 2.5 MG; Start 03/31/17 at 09:00; Status Future Hold Atorvastatin Calcium (Lipitor) 80 mg QHS PO Last administered on 04/07/17 21: 16; Admin Dose 80 MG; Start 03/30/17 at 21:00 Bisacodyl (Dulcolax Supp) 10 mg Q24H PRN [place] CONSTIPATION Last administered on 04/01/17 15:16; Admin Dose 10 MG; Start 03/30/17 at 14:30 Lisinopril (Zestril) 2.5 mg BID PO Last administered on 04/07/17 21:16; Admin Dose 2.5 MG; Start 03/30/17 at 21:00 Metoprolol Tartrate (Lopressor) 50 mg BID PO Last administered on 04/07/17 21: 16; Admin Dose 50 MG; Start 03/30/17 at 21:00 Nifedipine (Procardia Xl) 60 mg DAILY PO Last administered on 04/05/17 08:16; Admin Dose 60 MG; Start 03/31/17 at 09:00 Ondansetron HCl (Zofran Inj) 4 mg Q6H PRN IV NAUSEA AND/OR VOMITING; Start at 15:30 Acetaminophen (Tylenol Tab) 650 mg Q6H PRN PO PAIN LEVEL 1-3 OR FEVER; Start 03/30/17 at 15:30 Diagnostic Test (Pha) (Accu-Chek) 1 ea 02 XX Last administered on 04/08/17 05: 33; Admin Dose 1 EA; Start 03/31/17 at 02:00 Miscellaneous Information 1 ea NOTE XX ; Start 03/30/17 at 15:30 Glucose (Glutose) 15 gm Q15M PRN PO DECREASED GLUCOSE; Start 03/30/17 at 15:30 Glucose (Glutose) 22.5 gm Q15M PRN PO DECREASED GLUCOSE; Start 03/30/17 at 15: 30 Dextrose (D50w Syringe) 25 ml Q15M PRN IV DECREASED GLUCOSE; Start 03/30/17 at 15:30 Dextrose (D50w Syringe) 50 ml Q15M PRN IV DECREASED GLUCOSE; Start 03/30/17 at 15:30 Glucagon (Glucagen) 1 mg Q15M PRN IM DECREASED GLUCOSE; Start 03/30/17 at 15: 30 Glucose (Glutose) 15 gm Q15M PRN BUCCAL DECREASED GLUCOSE; Start 03/30/17 at 15:30 Guaifenesin/ Codeine Phosphate (Robitussin Ac Liquid Cup) 5 ml Q4H PRN PO cough ; Start 03/30/17 at 19:30 Lidocaine (Lmx 4% Plus) 1 applic PRN PRN TOP Prior to HD cannulation Last administered on 03/31/17 11:23; Admin Dose 1 APPLIC; Start 03/30/17 at 21:00 Pantoprazole (Protonix Tab) 40 mg DAILY@06 PO Last administered on 04/08/17 05 :36; Admin Dose 40 MG; Start 04/01/17 at 06:00 Heparin Sodium (Porcine) (Heparin (5000 Units/0.5 ml)) 5,000 unit BID SC Last administered on 04/07/17 21:24; Admin Dose 5,000 UNIT; Start 04/01/17 at 21:00 Senna/Docusate Sodium (Senokot-S) 1 tab DAILY PO Last administered on 08:17; Admin Dose 1 TAB; Start 04/03/17 at 12:00 Mineral Oil (Fleet Mineral Oil Enema) 133 ml DAILY PRN [place] constipation Last administered on 04/05/17 16:41; Admin Dose 133 ML; Start 04/03/17 at 12:00 Insulin Glargine (Lantus) 12 unit QHS SC Last administered on 04/07/17 21:24; Admin Dose 12 UNIT; Start 04/05/17 at 21:00 ANANTH PATEL Apr 08, 2017 15:03
--- NOTE | 2017-04-08 17:09 | CONS ---
Date/Time of Note Date/Time of Note DATE: 04/08/17 TIME: 17:08 Assessment/Plan Assessment/Plan Additional Assessment/Plan 1. Acute hypoxic resp failure due to acute fluid overload and Pleural effusion 2. ESRD on HD -TTS schedule 3. Right hemithorax multiple loculated right pleural effusion s/p Thoracentesis 250 cc drained- pt has multiple pockets of loculated effusion 4. h/o CAD s/p CABG 5/ H/o recent AL and s/p stenting by 6/ HTN 7/ HL Plan: s/p Thoracentesis 250 cc drained, pt has multiple loculations on right lung- s/ p CT surgery evaluation, Plavix and Eliquis has been on Hold plan for VATS today, S/p HD today 1 liter removed, will plan for HD tomorrow after round. will follow up Consultation Date/Type/Reason Admit Date/Time Mar 30, 2017 at 15:04 Initial Consult Date 03/30/17 Type of Consultation: NEPHROLOG Y 24 HR Interval Summary Free Text/Dictation s/p HD today AM 1 liter remove,d BP stable Exam/Review of Systems Vital Signs Vitals Vital Signs Date Time Temp Pulse Resp B/P Pulse Ox O2 Delivery O2 Flow Rate FiO2 04/08/17 16:14 94 04/08/17 16:05 20 98 Nasal Cannula 2.0 04/08/17 15:50 98.8 104/50 Intake and Output 04/07/17 04/07/17 04/08/17 14:59 22:59 06:59 Intake Total 500 ml 540 ml 500 ml Output Total 3000 ml Balance -2500 ml 540 ml 500 ml Exam Constitutional: alert Head: normocephalic Eyes: nl conjunctiva Neck: non-tender, supple Respiratory: congested cough, crackles/rales, diminished breath sounds, other ( decreased BS on Right Upper and Middle lung ) Cardiovascular: regular rate and rhythm Gastrointestinal: non-tender, soft Musculoskeletal: muscle weakness, other (1-2+ edema ), range of motion Neurological: PLACEMENT ASSISTANT II-XII intact, nl mental status, nl speech, nl strength Results Result Diagram: 04/08/17 0803 04/08/17 0803 Results 24 hrs Laboratory Tests Test 04/07/17 17:13 04/07/17 21:14 04/08/17 05:33 04/08/17 08:03 Bedside Glucose 198 210 188 White Blood Count 8.9 Red Blood Count 3.88 L Hemoglobin 9.8 L Hematocrit 31.6 L Mean Corpuscular Volume 81.4 L Mean Corpuscular Hemoglobin 25.3 L Mean Corpuscular Hemoglobin Concent 31.0 L Red Cell Distribution Width 13.8 Platelet Count 302 Mean Platelet Volume 11.0 H Neutrophils % 76.4 Lymphocytes % 13.1 L Monocytes % 7.8 Eosinophils % 1.1 Basophils % 0.4 Nucleated Red Blood Cells % 0.0 Neutrophils # 6.8 Lymphocytes # 1.2 Monocytes # 0.7 Eosinophils # 0.1 Basophils # 0.0 Nucleated Red Blood Cells # 0.0 Sodium Level 138 Potassium Level 4.6 Chloride Level 94 L Carbon Dioxide Level 31 Anion Gap 18 H Blood Urea Nitrogen 59 #H Creatinine 7.69 #H Glucose Level 184 Calcium Level 9.1 Phosphorus Level 6.2 H Magnesium Level 2.2 Albumin 3.2 L Test 04/08/17 08:05 04/08/17 11:32 Bedside Glucose 177 183 Medications Medications Current Medications Apixaban (Eliquis) 2.5 mg BID PO Last administered on 04/01/17 08:11; Admin Dose 2.5 MG; Start 03/31/17 at 09:00; Status Future Hold Atorvastatin Calcium (Lipitor) 80 mg QHS PO Last administered on 04/07/17 21: 16; Admin Dose 80 MG; Start 03/30/17 at 21:00 Bisacodyl (Dulcolax Supp) 10 mg Q24H PRN [place] CONSTIPATION Last administered on 04/01/17 15:16; Admin Dose 10 MG; Start 03/30/17 at 14:30 Lisinopril (Zestril) 2.5 mg BID PO Last administered on 04/07/17 21:16; Admin Dose 2.5 MG; Start 03/30/17 at 21:00 Metoprolol Tartrate (Lopressor) 50 mg BID PO Last administered on 04/07/17 21: 16; Admin Dose 50 MG; Start 03/30/17 at 21:00 Nifedipine (Procardia Xl) 60 mg DAILY PO Last administered on 04/05/17 08:16; Admin Dose 60 MG; Start 03/31/17 at 09:00 Ondansetron HCl (Zofran Inj) 4 mg Q6H PRN IV NAUSEA AND/OR VOMITING; Start at 15:30 Acetaminophen (Tylenol Tab) 650 mg Q6H PRN PO PAIN LEVEL 1-3 OR FEVER; Start 03/30/17 at 15:30 Diagnostic Test (Pha) (Accu-Chek) 1 ea 02 XX Last administered on 04/08/17 05: 33; Admin Dose 1 EA; Start 03/31/17 at 02:00 Miscellaneous Information 1 ea NOTE XX ; Start 03/30/17 at 15:30 Glucose (Glutose) 15 gm Q15M PRN PO DECREASED GLUCOSE; Start 03/30/17 at 15:30 Glucose (Glutose) 22.5 gm Q15M PRN PO DECREASED GLUCOSE; Start 03/30/17 at 15: 30 Dextrose (D50w Syringe) 25 ml Q15M PRN IV DECREASED GLUCOSE; Start 03/30/17 at 15:30 Dextrose (D50w Syringe) 50 ml Q15M PRN IV DECREASED GLUCOSE; Start 03/30/17 at 15:30 Glucagon (Glucagen) 1 mg Q15M PRN IM DECREASED GLUCOSE; Start 03/30/17 at 15: 30 Glucose (Glutose) 15 gm Q15M PRN BUCC[place] DECREASED GLUCOSE; Start 03/30/17 at 15:30 Guaifenesin/ Codeine Phosphate (Robitussin Ac Liquid Cup) 5 ml Q4H PRN PO cough ; Start 03/30/17 at 19:30 Lidocaine (Lmx 4% Plus) 1 applic PRN PRN TOP Prior to HD cannulation Last administered on 03/31/17 11:23; Admin Dose 1 APPLIC; Start 03/30/17 at 21:00 Pantoprazole (Protonix Tab) 40 mg DAILY@06 PO Last administered on 04/08/17 05 :36; Admin Dose 40 MG; Start 04/01/17 at 06:00 Heparin Sodium (Porcine) (Heparin (5000 Units/0.5 ml)) 5,000 unit BID SC Last administered on 04/07/17 21:24; Admin Dose 5,000 UNIT; Start 04/01/17 at 21:00 Senna/Docusate Sodium (Senokot-S) 1 tab DAILY PO Last administered on 08:17; Admin Dose 1 TAB; Start 04/03/17 at 12:00 Mineral Oil (Fleet Mineral Oil Enema) 133 ml DAILY PRN [place] constipation Last administered on 04/05/17 16:41; Admin Dose 133 ML; Start 04/03/17 at 12:00 Insulin Glargine (Lantus) 12 unit QHS SC Last administered on 04/07/17 21:24; Admin Dose 12 UNIT; Start 04/05/17 at 21:00 RAYNE FITCH MD Apr 08, 2017 17:09
--- NOTE | 2017-04-08 18:49 | CONS ---
Date/Time of Note Date/Time of Note DATE: 04/08/17 TIME: 18:48 Consult Date/Type/Reason Admit Date/Time Mar 30, 2017 at 15:04 Initial Consult Date 03/30/17 Type of Consultation: Card Objective Vital Signs Date Time Temp Pulse Resp B/P Pulse Ox O2 Delivery O2 Flow Rate FiO2 04/08/17 16:14 94 04/08/17 16:05 20 98 Nasal Cannula 2.0 04/08/17 15:50 98.8 104/50 Intake and Output 04/07/17 04/07/17 04/08/17 15:00 23:00 07:00 Intake Total 500 ml 540 ml 1000 ml Output Total 3000 ml 1500 ml Balance -2500 ml 540 ml -500 ml Results/Medications Result Diagram: 04/08/17 0803 04/08/17 0803 Results 24 hrs Laboratory Tests Test 04/07/17 21:14 04/08/17 05:33 04/08/17 08:03 04/08/17 08:05 Bedside Glucose 210 188 177 White Blood Count 8.9 Red Blood Count 3.88 L Hemoglobin 9.8 L Hematocrit 31.6 L Mean Corpuscular Volume 81.4 L Mean Corpuscular Hemoglobin 25.3 L Mean Corpuscular Hemoglobin Concent 31.0 L Red Cell Distribution Width 13.8 Platelet Count 302 Mean Platelet Volume 11.0 H Neutrophils % 76.4 Lymphocytes % 13.1 L Monocytes % 7.8 Eosinophils % 1.1 Basophils % 0.4 Nucleated Red Blood Cells % 0.0 Neutrophils # 6.8 Lymphocytes # 1.2 Monocytes # 0.7 Eosinophils # 0.1 Basophils # 0.0 Nucleated Red Blood Cells # 0.0 Sodium Level 138 Potassium Level 4.6 Chloride Level 94 L Carbon Dioxide Level 31 Anion Gap 18 H Blood Urea Nitrogen 59 #H Creatinine 7.69 #H Glucose Level 184 Calcium Level 9.1 Phosphorus Level 6.2 H Magnesium Level 2.2 Albumin 3.2 L Test 04/08/17 11:32 04/08/17 17:23 Bedside Glucose 183 135 Medications Current Medications Apixaban (Eliquis) 2.5 mg BID PO Last administered on 04/01/17t 08:11; Admin Dose 2.5 MG; Start 03/31/17 at 09:00; Status Future Hold Atorvastatin Calcium (Lipitor) 80 mg QHS PO Last administered on 04/07/17 21: 16; Admin Dose 80 MG; Start 03/30/17 at 21:00 Bisacodyl (Dulcolax Supp) 10 mg Q24H PRN [place] CONSTIPATION Last administered on 04/01/17 15:16; Admin Dose 10 MG; Start 03/30/17 at 14:30 Lisinopril (Zestril) 2.5 mg BID PO Last administered on 04/07/17 21:16; Admin Dose 2.5 MG; Start 03/30/17 at 21:00 Metoprolol Tartrate (Lopressor) 50 mg BID PO Last administered on 04/07/17 21: 16; Admin Dose 50 MG; Start 03/30/17 at 21:00 Nifedipine (Procardia Xl) 60 mg DAILY PO Last administered on 04/05/17 08:16; Admin Dose 60 MG; Start 03/31/17 at 09:00 Ondansetron HCl (Zofran Inj) 4 mg Q6H PRN IV NAUSEA AND/OR VOMITING; Start at 15:30 Acetaminophen (Tylenol Tab) 650 mg Q6H PRN PO PAIN LEVEL 1-3 OR FEVER; Start 03/30/17 at 15:30 Diagnostic Test (Pha) (Accu-Chek) 1 ea 02 XX Last administered on 04/08/17 05: 33; Admin Dose 1 EA; Start 03/31/17 at 02:00 Miscellaneous Information 1 ea NOTE XX ; Start 03/30/17 at 15:30 Glucose (Glutose) 15 gm Q15M PRN PO DECREASED GLUCOSE; Start 03/30/17 at 15:30 Glucose (Glutose) 22.5 gm Q15M PRN PO DECREASED GLUCOSE; Start 03/30/17 at 15: 30 Dextrose (D50w Syringe) 25 ml Q15M PRN IV DECREASED GLUCOSE; Start 03/30/17 at 15:30 Dextrose (D50w Syringe) 50 ml Q15M PRN IV DECREASED GLUCOSE; Start 03/30/17 at 15:30 Glucagon (Glucagen) 1 mg Q15M PRN IM DECREASED GLUCOSE; Start 03/30/17 at 15: 30 Glucose (Glutose) 15 gm Q15M PRN BUCCAL DECREASED GLUCOSE; Start 03/30/17 at 15:30 Guaifenesin/ Codeine Phosphate (Robitussin Ac Liquid Cup) 5 ml Q4H PRN PO cough ; Start 03/30/17 at 19:30 Lidocaine (Lmx 4% Plus) 1 applic PRN PRN TOP Prior to HD cannulation Last administered on 03/31/17 11:23; Admin Dose 1 APPLIC; Start 03/30/17 at 21:00 Pantoprazole (Protonix Tab) 40 mg DAILY@06 PO Last administered on 04/08/17 05 :36; Admin Dose 40 MG; Start 04/01/17 at 06:00 Heparin Sodium (Porcine) (Heparin (5000 Units/0.5 ml)) 5,000 unit BID SC Last administered on 04/07/17 21:24; Admin Dose 5,000 UNIT; Start 04/01/17 at 21:00 Senna/Docusate Sodium (Senokot-S) 1 tab DAILY PO Last administered on 08:17; Admin Dose 1 TAB; Start 04/03/17 at 12:00 Mineral Oil (Fleet Mineral Oil Enema) 133 ml DAILY PRN [place] constipation Last administered on 04/05/17 16:41; Admin Dose 133 ML; Start 04/03/17 at 12:00 Insulin Glargine (Lantus) 12 unit QHS SC Last administered on 04/07/17 21:24; Admin Dose 12 UNIT; Start 04/05/17 at 21:00 Assessment/Plan Chief Complaint/Hosp Course Patient is know to me form out pt with history of ME with PCI of RCA, SSS s/p st sayra PPM implantation, HTN, ESRD on HD, Severe PAD and Venous disease, HLD who presented to ER with Severe SOB, found to have white out of his right lung, likely PNA, s/p thoracocentesis with 250cc fluid only. No WBC, NO fever, Less likely this is Infection at this extent, I would get Contrast CT with [place]. Problems: Additional Assessment/Plan RightPl effusion Plan foR VATS stable cardiac brewer PT HUNTER BASSETT MD Apr 08, 2017 18:49
--- NOTE | 2017-04-08 19:44 | PN ---
Date/Time of Note Date/Time of Note DATE: 04/08/17 TIME: 19:43 Assessment/Plan Lines/Catheters IV Catheter Type (from Nrsg): Mid Line Yañez in Place (from Nrsg): No Assessment/Plan Chief Complaint/Hosp Course IMPRESSION: Right-sided pleural effusion which appears to be loculated. RECOMMENDATIONS: This patient would benefit from video-assisted thoracic surgery and decortication. VATS postponed today will need aggresive HD prior to surgery and pt has been off of plavix Plan for surgery tomorrow Risk and benefits explained Will discuss with the referring physicians. Problems: Subjective 24 Hr Interval Summary Constitutional: improved Pain Control: mild Exam/Review of Systems Vital Signs Vitals Vital Signs Date Time Temp Pulse Resp B/P Pulse Ox O2 Delivery O2 Flow Rate FiO2 04/08/17 16:14 94 04/08/17 16:05 20 98 Nasal Cannula 2.0 04/08/17 15:50 98.8 104/50 Intake and Output 04/07/17 04/07/17 04/08/17 15:00 23:00 07:00 Intake Total 500 ml 540 ml 1000 ml Output Total 3000 ml 1500 ml Balance -2500 ml 540 ml -500 ml Exam Neck: non-tender, supple Respiratory: clear to auscultation, normal air movement Cardiovascular: nl pulses, regular rate and rhythm Results Result Diagram: 04/08/1780204/08/17802 SHAYLA YAÑEZ MD Apr 08, 2017 19:44
[2017-04-08] MEDS: ATORVASTATIN 80 MG TAB PO SCH (21:48)
[2017-04-08] MEDS: INSULIN GLARGINE [LANtus] 3 ML PEN SC SCH (21:52)
[2017-04-09] VITALS (56 sets, daily range): BP systolic 75–150; BP diastolic 26–63; PULSE 72–93; RESP 14–26
[2017-04-09] MEDS: ACCU-CHEK XX SCH (02:11)
[2017-04-09] MEDS: PANTOPRAZOLE (EC) 40 MG TAB PO SCH (05:23)
[2017-04-09] MEDS ORDERED: LIDOCAINE 2% (SDV) 5 ML INJ ONE (07:00)
[2017-04-09] MEDS ORDERED: PROPOFOL 1000 MG INJ ONE (07:00)
[2017-04-09 07:34] LABS: BASOPHILS % 0.5 % (0.0-2.0); EOSINOPHILS # 0.1 10^3/ul (0.0-0.5); EOSINOPHILS % 1.5 % (0.0-7.0); HEMATOCRIT 30.5 % (42.0-52.0); HEMOGLOBIN 9.4 g/dl (14.0-18.0); LYMPHOCYTES # 1.1 10^3/ul (0.8-2.9); MEAN CORPUSCULAR HEMOGLOBIN 25.7 pg (29.0-33.0); MEAN CORPUSCULAR HGB CONC 30.8 g/dl (32.0-37.0); MEAN CORPUSCULAR VOLUME 83.3 fl (82.0-101.0); MONOCYTE # 0.7 10^3/ul (0.3-0.9); NEUTROPHIL # 6.7 10^3/ul (1.6-7.5); PLATELET COUNT 272 10^3/UL (140-415); RED BLOOD COUNT 3.66 10^6/ul (4.70-6.10); RED CELL DISTRIBUTION WIDTH 14.1 % (11.5-14.5); WHITE BLOOD COUNT 8.8 10^3/ul (4.8-10.8)
[2017-04-09 07:48] LABS: CALCIUM 8.7 mg/dl (8.4-10.2); CREATININE 6.56 mg/dl (0.61-1.24); MAGNESIUM 2.3 mg/dl (1.7-2.5); PHOSPHORUS 6.2 mg/dl (2.5-4.9); POTASSIUM 4.4 mmol/L (3.5-5.1)
[2017-04-09] MEDS: SEVELAMER CARBONATE 0.8 GM PKT PO SCH ×3 (08:00→17:30)
--- NOTE | 2017-04-09 08:08 | RADRPT ---
PROCEDURE: XR Chest. CLINICAL INDICATION: Preop TECHNIQUE: AP upright portable chest COMPARISON: Chest 03/30/2017 FINDINGS: There is a right infraclavicular AICD device with bipolar electrodes extending the right heart. Agai n noted is opacification of the right hemithorax consistent with a large right pleural effusion and underlying compressive atelectasis. The left lung is relatively clear. No evidence of pleural effusi on and pneumothorax. Heart is probably normal limits in size. Atherosclerosis of the aorta. IMPRESSION: Persistent opacification right hemithorax consistent with a large right pleural effusion and underly ing compressive atelectasis. RPTAT:AAJJ Physician Ernesto Date Time Electronically viewed and signed by Physician Ernesto on 04/09/2017 08:08 /
[2017-04-09] MEDS ORDERED: MINERAL OIL LIGHT 10 ML VIAL ONE (08:37)
[2017-04-09] MEDS: ALBUTEROL 0.083% (NEB) 2.5 MG/3 ML AMP HHN SCH ×4 (08:42→20:42)
[2017-04-09] MEDS: INSULIN ASPART [NOVOLOG] 3 ML PEN SC SCH ×5 (08:45→21:00)
[2017-04-09] MEDS: SENNA/DOCUSATE NA (8.6MG/50MG) TAB PO SCH (08:46)
[2017-04-09] MEDS: METOPROLOL 50 MG TAB PO SCH ×2 (08:46→21:00)
[2017-04-09] MEDS: LISINOPRIL 5 MG TAB PO SCH ×2 (08:46→21:00)
[2017-04-09] MEDS: HEPARIN 5,000 UNIT/0.5 ML VIAL SC SCH ×2 (08:46→21:25)
[2017-04-09] MEDS: NIFEdipine (XL) 60 MG TAB PO SCH (08:46)
[2017-04-09 09:26] LABS: INR 1.07; PT RATIO 1.1
[2017-04-09] MEDS ORDERED: LIDOCAINE 0.5% (MDV) 50 ML INJ ONE (09:30)
[2017-04-09] MEDS ORDERED: BUPIVACAINE 0.5%/EPI (SDV) 30 ML INJ ONE (09:30)
[2017-04-09] MEDS ORDERED: MIDAZOLAM 1 MG/ML 2 ML INJ ONE ×2 (09:49→10:50)
[2017-04-09] MEDS ORDERED: ROCURONIUM 50 MG INJ ONE (10:43)
[2017-04-09] MEDS ORDERED: ETOMIDATE 20 MG INJ ONE (10:43)
[2017-04-09] MEDS ORDERED: DIPHENHYDRAMINE 50 MG INJ IV PRN (11:00)
[2017-04-09] MEDS ORDERED: ONDANSETRON 4 MG INJ IV PRN (11:00)
[2017-04-09] MEDS ORDERED: ALBUTEROL 0.083% (NEB) 2.5 MG/3 ML AMP HHN PRN (11:00)
[2017-04-09] MEDS ORDERED: LABETALOL HCL 20MG INJ IV PRN (11:00)
[2017-04-09] MEDS ORDERED: hydrALAzine 20 MG INJ IV PRN (11:00)
[2017-04-09] MEDS ORDERED: MIDAZOLAM 1 MG/ML 2 ML INJ IV PRN (11:00)
[2017-04-09] MEDS ORDERED: FENTAnyl 50 MCG/ML VIAL IV PRN ×3 (11:00)
[2017-04-09] MEDS ORDERED: morphine (1 MG/ML) 10ML SYRINGE IV PRN ×3 (11:00)
[2017-04-09] MEDS ORDERED: KETOROLAC 30 MG INJ IV PRN (11:00)
[2017-04-09] MEDS ORDERED: EPHEDrine SULFATE 50 MG/5 ML SYG IV PRN (11:00)
[2017-04-09] MEDS ORDERED: MEPERIDINE 25 MG INJ IV PRN (11:00)
[2017-04-09] MEDS ORDERED: METOCLOPRAMIDE 10 MG INJ IV PRN (11:00)
[2017-04-09] MEDS ORDERED: PHENYLephrine (100 MCG/ML) 5ML SYG ONE (11:52)
--- NOTE | 2017-04-09 12:06 | CONS ---
Date/Time of Note Date/Time of Note DATE: 04/09/17 TIME: 12:06 Consultation Date/Type/Reason Admit Date/Time Mar 30, 2017 at 15:04 Initial Consult Date 03/30/17 Type of Consultation: Pulmonary 24 HR Interval Summary Free Text/Dictation Patient in surgery. Exam/Review of Systems Vital Signs Vitals Vital Signs Date Time Temp Pulse Resp B/P Pulse Ox O2 Delivery O2 Flow Rate FiO2 04/09/17 08:43 80 18 97 Nasal Cannula 2.0 04/09/17 07:31 99.0 124/59 Intake and Output 04/08/17 04/08/17 04/09/17 15:00 23:00 07:00 Intake Total 100 ml 200 ml Balance 100 ml 200 ml Results Result Diagram: 04/09/17 0649 04/09/17 0649 Results 24 hrs Laboratory Tests Test 04/08/17 17:23 04/08/17 21:48 04/09/17 02:10 04/09/17 06:49 Bedside Glucose 135 246 H 211 White Blood Count 8.8 Red Blood Count 3.66 L Hemoglobin 9.4 L Hematocrit 30.5 L Mean Corpuscular Volume 83.3 Mean Corpuscular Hemoglobin 25.7 L Mean Corpuscular Hemoglobin Concent 30.8 L Red Cell Distribution Width 14.1 Platelet Count 272 Mean Platelet Volume 11.0 H Neutrophils % 76.0 Lymphocytes % 13.0 L Monocytes % 8.0 Eosinophils % 1.5 Basophils % 0.5 Nucleated Red Blood Cells % 0.0 Neutrophils # 6.7 Lymphocytes # 1.1 Monocytes # 0.7 Eosinophils # 0.1 Basophils # 0.0 Nucleated Red Blood Cells # 0.0 Sodium Level 141 Potassium Level 4.4 Chloride Level 99 Carbon Dioxide Level 31 Anion Gap 15 Blood Urea Nitrogen 53 H Creatinine 6.56 H Glucose Level 187 Calcium Level 8.7 Phosphorus Level 6.2 H Magnesium Level 2.3 Test 04/09/17 08:35 04/09/17 08:36 Bedside Glucose 164 Prothrombin Time 14.0 Prothrombin Time Ratio 1.1 INR International Normalized Ratio 1.07 Medications Medications Current Medications Apixaban (Eliquis) 2.5 mg BID PO Last administered on 04/01/17t 08:11; Admin Dose 2.5 MG; Start 03/31/17 at 09:00; Status Future Hold Atorvastatin Calcium (Lipitor) 80 mg QHS PO Last administered on 04/08/17 21: 48; Admin Dose 80 MG; Start 03/30/17 at 21:00 Bisacodyl (Dulcolax Supp) 10 mg Q24H PRN [place] CONSTIPATION Last administered on 04/01/17 15:16; Admin Dose 10 MG; Start 03/30/17 at 14:30 Lisinopril (Zestril) 2.5 mg BID PO Last administered on 04/08/17 21:49; Admin Dose 2.5 MG; Start 03/30/17 at 21:00 Metoprolol Tartrate (Lopressor) 50 mg BID PO Last administered on 04/08/17 21: 49; Admin Dose 50 MG; Start 03/30/17 at 21:00 Nifedipine (Procardia Xl) 60 mg DAILY PO Last administered on 04/05/17 08:16; Admin Dose 60 MG; Start 03/31/17 at 09:00 Ondansetron HCl (Zofran Inj) 4 mg Q6H PRN IV NAUSEA AND/OR VOMITING; Start at 15:30 Acetaminophen (Tylenol Tab) 650 mg Q6H PRN PO PAIN LEVEL 1-3 OR FEVER; Start 03/30/17 at 15:30 Diagnostic Test (Pha) (Accu-Chek) 1 ea 02 XX Last administered on 04/09/17 02: 11; Admin Dose 1 EA; Start 03/31/17 at 02:00 Miscellaneous Information 1 ea NOTE XX ; Start 03/30/17 at 15:30 Glucose (Glutose) 15 gm Q15M PRN PO DECREASED GLUCOSE; Start 03/30/17 at 15:30 Glucose (Glutose) 22.5 gm Q15M PRN PO DECREASED GLUCOSE; Start 03/30/17 at 15: 30 Dextrose (D50w Syringe) 25 ml Q15M PRN IV DECREASED GLUCOSE; Start 03/30/17 at 15:30 Dextrose (D50w Syringe) 50 ml Q15M PRN IV DECREASED GLUCOSE; Start 03/30/17 at 15:30 Glucagon (Glucagen) 1 mg Q15M PRN IM DECREASED GLUCOSE; Start 03/30/17 at 15: 30 Glucose (Glutose) 15 gm Q15M PRN BUCCAL DECREASED GLUCOSE; Start 03/30/17 at 15:30 Guaifenesin/ Codeine Phosphate (Robitussin Ac Liquid Cup) 5 ml Q4H PRN PO cough ; Start 03/30/17 at 19:30 Lidocaine (Lmx 4% Plus) 1 applic PRN PRN TOP Prior to HD cannulation Last administered on 03/31/17 11:23; Admin Dose 1 APPLIC; Start 03/30/17 at 21:00 Pantoprazole (Protonix Tab) 40 mg DAILY@06 PO Last administered on 04/08/17 05 :36; Admin Dose 40 MG; Start 04/01/17 at 06:00 Heparin Sodium (Porcine) (Heparin (5000 Units/0.5 ml)) 5,000 unit BID SC Last administered on 04/08/17 21:52; Admin Dose 5,000 UNIT; Start 04/01/17 at 21:00 Senna/Docusate Sodium (Senokot-S) 1 tab DAILY PO Last administered on 08:17; Admin Dose 1 TAB; Start 04/03/17 at 12:00 Mineral Oil (Fleet Mineral Oil Enema) 133 ml DAILY PRN [place] constipation Last administered on 04/05/17 16:41; Admin Dose 133 ML; Start 04/03/17 at 12:00 Insulin Glargine (Lantus) 12 unit QHS SC Last administered on 04/08/17 21:52; Admin Dose 12 UNIT; Start 04/05/17 at 21:00 TRACEY HAWKINS Apr 09, 2017 12:06
[2017-04-09] MEDS ORDERED: SUGAMMADEX SODIUM 200 MG/2 ML VIAL IV ONE (12:15)
[2017-04-09] MEDS ORDERED: LABETALOL HCL 20MG INJ ONE (12:25)
--- NOTE | 2017-04-09 12:27 | OPR ---
Date/Time of Note Date/Time of Note DATE: 04/09/17 TIME: 12:25 Operative Report Procedure Date: Apr 09, 2017 Preoperative Diagnosis R pleural effusion Postoperative Diagnosis same Surgeon see signature line Imaging Services Director none Anesthesia Type: general Estimated Blood Loss: minimal Transfusion none Specimen peel Grafts/Implants none Tubes/Drains CT Complications none Procedure Description dictated SHAYLA YAÑEZ MD Apr 09, 2017 12:27
--- NOTE | 2017-04-09 13:15 | OPR ---
DATE OF OPERATION: PREOPERATIVE DIAGNOSIS: Right loculated pleural effusion. POSTOPERATIVE DIAGNOSIS: Right loculated pleural effusion. PROCEDURE: 1. Right video-assisted thoracic surgery, total pulmonary decortication. 2. Bronchoscopy. SURGEON: Shayla Pacheco MD ANESTHESIA: General. CONSENT: Risks, benefits, complications, alternative therapies explained to the patient and the [facility] amy, consent obtained. OPERATIVE TECHNIQUE: The patient was taken to the operating room. After induction of general anest hesia, prepped and draped in usual sterile fashion, 1% lidocaine was used throughout the operation f or local anesthesia. The patient was placed in the left lateral decubitus position, prepped and kylie ped in usual sterile fashion. I made two 1 cm incisions intercostal space mid axillary line a nd posterior axillary line. Incision was taken down to subcutaneous tissue which was then opened us ing electrocautery. Access was gained into the pleural cavity. Two 12 mm trocars were advanced int o the pleural cavity. Large amounts of loculations were noted which were taken down using a dissect or. About 1500 mL of pleural fluid was also removed. No evidence of any bleeding was noted. The l polo expanded completely. A 32-Icelandic chest tube was placed into the pleural cavity, secured to skin using silk sutures. The other incision was closed using 2-0 Vicryl suture for the deep and 3-0 Ludwig ryl suture for running subcuticular skin closure. Patient tolerated procedure well. Dictated By: SHAYLA NICOLE/SEAN Conf#: [id number] DID#: [id number]
--- NOTE | 2017-04-09 13:29 | PN ---
Date/Time of Note Date/Time of Note DATE: 04/09/17 TIME: 13:27 Assessment/Plan VTE Prophylaxis VTE Prophylaxis Intervention: ambulation, SCD's Lines/Catheters IV Catheter Type (from Nrsg): Peripheral IV Urinary Cath still in place: No Assessment/Plan Chief Complaint/Hosp Course s: 12.4 no acute changes, but patient's son refusing surgery due to HD 12.5 no acute complaints 12.6 no acute complaints, awaiting surgery 12.7 patient surgery today o: Physical exam General: Patient is laying in bed and answers questions appropriately Mentation: Patient is alert and oriented 4, Head: Normocephalic atraumatic Eyes: EOMI, pupils reactive to light Neck: Supple, nontender, midline Respiratory: coarse to auscultation bilaterally Cardiovascular: regular rate, no obvious murmurs Gastrointestinal: non-tender to palpation, bowel sounds heard. Neurological: Moves all extremities spontaneously Skin: No new skin lesions Assessment/Plan Acute hypoxic respiratory failure secondary to pleural effusion in right lung- improving - VATS today - Patient remains stable respiratory brewer and saturating >90% on NC - CT surgery on board and appreciate consultation. VATS today - Cardiology clearance obtained and okay to hold Plavix and Eliquis prior to VATS. - HRCT chest shows large right pleural effusion but appeared to have multiple loculated pockets on US - Pulmonology consultation appreciated. recommending large bore chest tube - Bronchodilators as needed Large Right pleural effusion s/p thoracentesis 03/30 - 250 cc of fluid was removed but CXR still showed complete white out of right lung - Pulm on board and consultation appreciated Acute on chronic CHF - Last ECHO 10/2016 showed EF 65% with stage 1 diastolic dysfunction - Monitor I/O and daily weights - CXR shows cardiomegaly - Cardiology consultation appreciated and cleared for VATS ESRD on HD - patient on / scheduled - Nephrology consultation appreciated Hypertensive urgency - BP controlled on home medications DM, type 2 - Will increase lantus dosing to 12 units - ISS and accuchecks - A1c 6.9 Heart block/bradycardia with PPM - cardiology on board CAD s/p stent 10/2016 - continue on home medications - Holding Plavix Atrial fibrillation - on BB, Eliquis on hold - rate controlled Oliguria - on HD Constipation - given Senna S and suppository. Will try mineral oil enema Disposition - VATS today Problems: Exam/Review of Systems Vital Signs Vitals Vital Signs Date Time Temp Pulse Resp B/P Pulse Ox O2 Delivery O2 Flow Rate FiO2 04/09/17 12:49 97.8 04/09/17 08:43 80 18 97 Nasal Cannula 2.0 04/09/17 07:31 124/59 Intake and Output 04/08/17 04/08/17 04/09/17 15:00 23:00 07:00 Intake Total 100 ml 200 ml Balance 100 ml 200 ml Results Result Diagram: 04/09/17 0649 04/09/17 0649 Results 24 hrs Laboratory Tests Test 04/08/17 17:23 04/08/17 21:48 04/09/17 02:10 04/09/17 06:49 Bedside Glucose 135 246 H 211 White Blood Count 8.8 Red Blood Count 3.66 L Hemoglobin 9.4 L Hematocrit 30.5 L Mean Corpuscular Volume 83.3 Mean Corpuscular Hemoglobin 25.7 L Mean Corpuscular Hemoglobin Concent 30.8 L Red Cell Distribution Width 14.1 Platelet Count 272 Mean Platelet Volume 11.0 H Neutrophils % 76.0 Lymphocytes % 13.0 L Monocytes % 8.0 Eosinophils % 1.5 Basophils % 0.5 Nucleated Red Blood Cells % 0.0 Neutrophils # 6.7 Lymphocytes # 1.1 Monocytes # 0.7 Eosinophils # 0.1 Basophils # 0.0 Nucleated Red Blood Cells # 0.0 Sodium Level 141 Potassium Level 4.4 Chloride Level 99 Carbon Dioxide Level 31 Anion Gap 15 Blood Urea Nitrogen 53 H Creatinine 6.56 H Glucose Level 187 Calcium Level 8.7 Phosphorus Level 6.2 H Magnesium Level 2.3 Test 04/09/17 08:35 04/09/17 08:36 04/09/17 12:58 Bedside Glucose 164 177 Prothrombin Time 14.0 Prothrombin Time Ratio 1.1 INR International Normalized Ratio 1.07 Medications Medications Current Medications Apixaban (Eliquis) 2.5 mg BID PO Last administered on 04/01/17 08:11; Admin Dose 2.5 MG; Start 03/31/17 at 09:00; Status Future Hold Atorvastatin Calcium (Lipitor) 80 mg QHS PO Last administered on 04/08/17 21: 48; Admin Dose 80 MG; Start 03/30/17 at 21:00 Bisacodyl (Dulcolax Supp) 10 mg Q24H PRN [place] CONSTIPATION Last administered on 04/01/17 15:16; Admin Dose 10 MG; Start 03/30/17 at 14:30 Lisinopril (Zestril) 2.5 mg BID PO Last administered on 04/08/17 21:49; Admin Dose 2.5 MG; Start 03/30/17 at 21:00 Metoprolol Tartrate (Lopressor) 50 mg BID PO Last administered on 04/08/17 21: 49; Admin Dose 50 MG; Start 03/30/17 at 21:00 Nifedipine (Procardia Xl) 60 mg DAILY PO Last administered on 04/05/17 08:16; Admin Dose 60 MG; Start 03/31/17 at 09:00 Ondansetron HCl (Zofran Inj) 4 mg Q6H PRN IV NAUSEA AND/OR VOMITING; Start at 15:30 Acetaminophen (Tylenol Tab) 650 mg Q6H PRN PO PAIN LEVEL 1-3 OR FEVER; Start 03/30/17 at 15:30 Diagnostic Test (Pha) (Accu-Chek) 1 ea 02 XX Last administered on 04/09/17 02: 11; Admin Dose 1 EA; Start 03/31/17 at 02:00 Miscellaneous Information 1 ea NOTE XX ; Start 03/30/17 at 15:30 Glucose (Glutose) 15 gm Q15M PRN PO DECREASED GLUCOSE; Start 03/30/17 at 15:30 Glucose (Glutose) 22.5 gm Q15M PRN PO DECREASED GLUCOSE; Start 03/30/17 at 15: 30 Dextrose (D50w Syringe) 25 ml Q15M PRN IV DECREASED GLUCOSE; Start 03/30/17 at 15:30 Dextrose (D50w Syringe) 50 ml Q15M PRN IV DECREASED GLUCOSE; Start 03/30/17 at 15:30 Glucagon (Glucagen) 1 mg Q15M PRN IM DECREASED GLUCOSE; Start 03/30/17 at 15: 30 Glucose (Glutose) 15 gm Q15M PRN BUCCAL DECREASED GLUCOSE; Start 03/30/17 at 15:30 Guaifenesin/ Codeine Phosphate (Robitussin Ac Liquid Cup) 5 ml Q4H PRN PO cough ; Start 03/30/17 at 19:30 Lidocaine (Lmx 4% Plus) 1 applic PRN PRN TOP Prior to HD cannulation Last administered on 03/31/17 11:23; Admin Dose 1 APPLIC; Start 03/30/17 at 21:00 Pantoprazole (Protonix Tab) 40 mg DAILY@06 PO Last administered on 04/08/17 05 :36; Admin Dose 40 MG; Start 04/01/17 at 06:00 Heparin Sodium (Porcine) (Heparin (5000 Units/0.5 ml)) 5,000 unit BID SC Last administered on 04/08/17 21:52; Admin Dose 5,000 UNIT; Start 04/01/17 at 21:00 Senna/Docusate Sodium (Senokot-S) 1 tab DAILY PO Last administered on 08:17; Admin Dose 1 TAB; Start 04/03/17 at 12:00 Mineral Oil (Fleet Mineral Oil Enema) 133 ml DAILY PRN [place] constipation Last administered on 04/05/17 16:41; Admin Dose 133 ML; Start 04/03/17 at 12:00 Insulin Glargine (Lantus) 12 unit QHS SC Last administered on 04/08/17 21:52; Admin Dose 12 UNIT; Start 04/05/17 at 21:00 ANANTH PATEL Apr 09, 2017 13:29
[2017-04-09] MEDS ORDERED: DEXTROSE 50% 50 ML SYRINGE IV PRN ×2 (14:00)
[2017-04-09] MEDS ORDERED: GLUCOSE GEL 15 GRAM TUBE BUCCAL PRN (14:00)
[2017-04-09] MEDS ORDERED: GLUCOSE GEL 15 GRAM TUBE PO PRN ×2 (14:00)
[2017-04-09] MEDS ORDERED: GLUCAGON 1 MG INJ IM PRN (14:00)
--- NOTE | 2017-04-09 17:12 | CONS ---
Date/Time of Note Date/Time of Note DATE: 04/09/17 TIME: 17:11 Assessment/Plan Assessment/Plan Additional Assessment/Plan 1. Acute hypoxic resp failure due to acute fluid overload and Pleural effusion 2. ESRD on HD -TTS schedule 3. Right hemithorax multiple loculated right pleural effusion s/p Thoracentesis 250 cc drained- pt has multiple pockets of loculated effusion 4. h/o CAD s/p CABG 5/ H/o recent [place] and s/p stenting by 6/ HTN 7/ HL Plan: s/p Thoracentesis 250 cc drained, pt has multiple loculations on right lung- s/ p CT surgery evaluation, Plavix and Eliquis has been on Hold plan for VATS will follow up Consultation Date/Type/Reason Admit Date/Time Mar 30, 2017 at 15:04 Initial Consult Date 03/30/17 Type of Consultation: NEPHROLOGY 24 HR Interval Summary Free Text/Dictation VATS postponed and done today, S/p HD serally x 2 days Exam/Review of Systems Vital Signs Vitals Vital Signs Date Time Temp Pulse Resp B/P Pulse Ox O2 Delivery O2 Flow Rate FiO2 04/09/17 16:45 92 18 101/28 95 Nasal Cannula 04/09/17 15:50 2.0 04/09/17 15:15 97.6 Intake and Output 04/08/17 04/08/17 04/09/17 15:00 23:00 07:00 Intake Total 100 ml 200 ml Balance 100 ml 200 ml Exam Constitutional: alert Head: normocephalic Eyes: nl conjunctiva Neck: non-tender, supple Respiratory: congested cough, crackles/rales, diminished breath sounds, other ( decreased BS on Right Upper and Middle lung ) Cardiovascular: regular rate and rhythm Gastrointestinal: non-tender, soft Musculoskeletal: muscle weakness, other (1-2+ edema ), range of motion Neurological: 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, nl mental status, nl speech, nl strength Results Result Diagram: 04/09/17 0649 04/09/17 0649 Results 24 hrs Laboratory Tests Test 04/08/17 17:23 04/08/17 21:48 04/09/17 02:10 04/09/17 06:49 Bedside Glucose 135 246 H 211 White Blood Count 8.8 Red Blood Count 3.66 L Hemoglobin 9.4 L Hematocrit 30.5 L Mean Corpuscular Volume 83.3 Mean Corpuscular Hemoglobin 25.7 L Mean Corpuscular Hemoglobin Concent 30.8 L Red Cell Distribution Width 14.1 Platelet Count 272 Mean Platelet Volume 11.0 H Neutrophils % 76.0 Lymphocytes % 13.0 L Monocytes % 8.0 Eosinophils % 1.5 Basophils % 0.5 Nucleated Red Blood Cells % 0.0 Neutrophils # 6.7 Lymphocytes # 1.1 Monocytes # 0.7 Eosinophils # 0.1 Basophils # 0.0 Nucleated Red Blood Cells # 0.0 Sodium Level 141 Potassium Level 4.4 Chloride Level 99 Carbon Dioxide Level 31 Anion Gap 15 Blood Urea Nitrogen 53 H Creatinine 6.56 H Glucose Level 187 Calcium Level 8.7 Phosphorus Level 6.2 H Magnesium Level 2.3 Test 04/09/17 08:35 04/09/17 08:36 04/09/17 12:58 Bedside Glucose 164 177 Prothrombin Time 14.0 Prothrombin Time Ratio 1.1 INR International Normalized Ratio 1.07 Medications Medications Current Medications Apixaban (Eliquis) 2.5 mg BID PO Last administered on 04/01/17 08:11; Admin Dose 2.5 MG; Start 03/31/17 at 09:00; Status Future Hold Atorvastatin Calcium (Lipitor) 80 mg QHS PO Last administered on 04/08/17 21: 48; Admin Dose 80 MG; Start 03/30/17 at 21:00 Bisacodyl (Dulcolax Supp) 10 mg Q24H PRN [place] CONSTIPATION Last administered on 04/01/17 15:16; Admin Dose 10 MG; Start 03/30/17 at 14:30 Lisinopril (Zestril) 2.5 mg BID PO Last administered on 04/08/17 21:49; Admin Dose 2.5 MG; Start 03/30/17 at 21:00 Metoprolol Tartrate (Lopressor) 50 mg BID PO Last administered on 04/08/17 21: 49; Admin Dose 50 MG; Start 03/30/17 at 21:00 Nifedipine (Procardia Xl) 60 mg DAILY PO Last administered on 04/05/17 08:16; Admin Dose 60 MG; Start 03/31/17 at 09:00 Ondansetron HCl (Zofran Inj) 4 mg Q6H PRN IV NAUSEA AND/OR VOMITING; Start at 15:30 Acetaminophen (Tylenol Tab) 650 mg Q6H PRN PO PAIN LEVEL 1-3 OR FEVER; Start 03/30/17 at 15:30 Diagnostic Test (Pha) (Accu-Chek) 1 ea 02 XX Last administered on 04/09/17 02: 11; Admin Dose 1 EA; Start 03/31/17 at 02:00 Miscellaneous Information 1 ea NOTE XX ; Start 03/30/17 at 15:30 Glucose (Glutose) 15 gm Q15M PRN PO DECREASED GLUCOSE; Start 03/30/17 at 15:30 Glucose (Glutose) 22.5 gm Q15M PRN PO DECREASED GLUCOSE; Start 03/30/17 at 15: 30 Dextrose (D50w Syringe) 25 ml Q15M PRN IV DECREASED GLUCOSE; Start 03/30/17 at 15:30 Dextrose (D50w Syringe) 50 ml Q15M PRN IV DECREASED GLUCOSE; Start 03/30/17 at 15:30 Glucagon (Glucagen) 1 mg Q15M PRN IM DECREASED GLUCOSE; Start 03/30/17 at 15: 30 Glucose (Glutose) 15 gm Q15M PRN BUCCAL DECREASED GLUCOSE; Start 03/30/17 at 15:30 Guaifenesin/ Codeine Phosphate (Robitussin Ac Liquid Cup) 5 ml Q4H PRN PO cough ; Start 03/30/17 at 19:30 Lidocaine (Lmx 4% Plus) 1 applic PRN PRN TOP Prior to HD cannulation Last administered on 03/31/17 11:23; Admin Dose 1 APPLIC; Start 03/30/17 at 21:00 Pantoprazole (Protonix Tab) 40 mg DAILY@06 PO Last administered on 04/08/17 05 :36; Admin Dose 40 MG; Start 04/01/17 at 06:00 Heparin Sodium (Porcine) (Heparin (5000 Units/0.5 ml)) 5,000 unit BID SC Last administered on 04/08/17 21:52; Admin Dose 5,000 UNIT; Start 04/01/17 at 21:00 Senna/Docusate Sodium (Senokot-S) 1 tab DAILY PO Last administered on 08:17; Admin Dose 1 TAB; Start 04/03/17 at 12:00 Mineral Oil (Fleet Mineral Oil Enema) 133 ml DAILY PRN [place] constipation Last administered on 04/05/17t 16:41; Admin Dose 133 ML; Start 04/03/17 at 12:00 Insulin Glargine (Lantus) 16 unit QHS SC ; Start 04/09/17 at 21:00 Miscellaneous Information 1 ea NOTE XX ; Start 04/09/17 at 14:00 Glucagon (Glucagen) 1 mg Q15M PRN IM DECREASED GLUCOSE; Start 04/09/17 at 14:00 Morphine Sulfate (morphine) 2 mg Q2H PRN IV PAIN LEVEL 4-7; Start 04/09/17 at 15:00 RAYNE FITCH MD Apr 09, 2017 17:12
[2017-04-09] MEDS: morphine 2 MG INJ IV PRN (17:21)
--- NOTE | 2017-04-09 17:21 | CONS ---
Date/Time of Note Date/Time of Note DATE: 04/09/17 TIME: 17:20 Consult Date/Type/Reason Admit Date/Time Mar 30, 2017 at 15:04 Initial Consult Date 03/30/17 Type of Consultation: Cardiology Objective Vital Signs Date Time Temp Pulse Resp B/P Pulse Ox O2 Delivery O2 Flow Rate FiO2 04/09/17 16:45 92 18 101/28 95 Nasal Cannula 04/09/17 15:50 2.0 04/09/17 15:15 97.6 Intake and Output 04/08/17 04/08/17 04/09/17 15:00 23:00 07:00 Intake Total 100 ml 200 ml Balance 100 ml 200 ml Results/Medications Result Diagram: 04/09/17 0649 04/09/17 0649 Results 24 hrs Laboratory Tests Test 04/08/17 17:23 04/08/17 21:48 04/09/17 02:10 04/09/17 06:49 Bedside Glucose 135 246 H 211 White Blood Count 8.8 Red Blood Count 3.66 L Hemoglobin 9.4 L Hematocrit 30.5 L Mean Corpuscular Volume 83.3 Mean Corpuscular Hemoglobin 25.7 L Mean Corpuscular Hemoglobin Concent 30.8 L Red Cell Distribution Width 14.1 Platelet Count 272 Mean Platelet Volume 11.0 H Neutrophils % 76.0 Lymphocytes % 13.0 L Monocytes % 8.0 Eosinophils % 1.5 Basophils % 0.5 Nucleated Red Blood Cells % 0.0 Neutrophils # 6.7 Lymphocytes # 1.1 Monocytes # 0.7 Eosinophils # 0.1 Basophils # 0.0 Nucleated Red Blood Cells # 0.0 Sodium Level 141 Potassium Level 4.4 Chloride Level 99 Carbon Dioxide Level 31 Anion Gap 15 Blood Urea Nitrogen 53 H Creatinine 6.56 H Glucose Level 187 Calcium Level 8.7 Phosphorus Level 6.2 H Magnesium Level 2.3 Test 04/09/17 08:35 04/09/17 08:36 04/09/17 12:58 Bedside Glucose 164 177 Prothrombin Time 14.0 Prothrombin Time Ratio 1.1 INR International Normalized Ratio 1.07 Medications Current Medications Apixaban (Eliquis) 2.5 mg BID PO Last administered on 04/01/17t 08:11; Admin Dose 2.5 MG; Start 03/31/17 at 09:00; Status Future Hold Atorvastatin Calcium (Lipitor) 80 mg QHS PO Last administered on 04/08/17 21: 48; Admin Dose 80 MG; Start 03/30/17 at 21:00 Bisacodyl (Dulcolax Supp) 10 mg Q24H PRN [place] CONSTIPATION Last administered on 04/01/17 15:16; Admin Dose 10 MG; Start 03/30/17 at 14:30 Lisinopril (Zestril) 2.5 mg BID PO Last administered on 04/08/17 21:49; Admin Dose 2.5 MG; Start 03/30/17 at 21:00 Metoprolol Tartrate (Lopressor) 50 mg BID PO Last administered on 04/08/17 21: 49; Admin Dose 50 MG; Start 03/30/17 at 21:00 Nifedipine (Procardia Xl) 60 mg DAILY PO Last administered on 04/05/17 08:16; Admin Dose 60 MG; Start 03/31/17 at 09:00 Ondansetron HCl (Zofran Inj) 4 mg Q6H PRN IV NAUSEA AND/OR VOMITING; Start at 15:30 Acetaminophen (Tylenol Tab) 650 mg Q6H PRN PO PAIN LEVEL 1-3 OR FEVER; Start 03/30/17 at 15:30 Diagnostic Test (Pha) (Accu-Chek) 1 ea 02 XX Last administered on 04/09/17 02: 11; Admin Dose 1 EA; Start 03/31/17 at 02:00 Miscellaneous Information 1 ea NOTE XX ; Start 03/30/17 at 15:30 Glucose (Glutose) 15 gm Q15M PRN PO DECREASED GLUCOSE; Start 03/30/17 at 15:30 Glucose (Glutose) 22.5 gm Q15M PRN PO DECREASED GLUCOSE; Start 03/30/17 at 15: 30 Dextrose (D50w Syringe) 25 ml Q15M PRN IV DECREASED GLUCOSE; Start 03/30/17 at 15:30 Dextrose (D50w Syringe) 50 ml Q15M PRN IV DECREASED GLUCOSE; Start 03/30/17 at 15:30 Glucagon (Glucagen) 1 mg Q15M PRN IM DECREASED GLUCOSE; Start 03/30/17 at 15: 30 Glucose (Glutose) 15 gm Q15M PRN BUCCAL DECREASED GLUCOSE; Start 03/30/17 at 15:30 Guaifenesin/ Codeine Phosphate (Robitussin Ac Liquid Cup) 5 ml Q4H PRN PO cough ; Start 03/30/17 at 19:30 Lidocaine (Lmx 4% Plus) 1 applic PRN PRN TOP Prior to HD cannulation Last administered on 03/31/17 11:23; Admin Dose 1 APPLIC; Start 03/30/17 at 21:00 Pantoprazole (Protonix Tab) 40 mg DAILY@06 PO Last administered on 04/08/17 05 :36; Admin Dose 40 MG; Start 04/01/17 at 06:00 Heparin Sodium (Porcine) (Heparin (5000 Units/0.5 ml)) 5,000 unit BID SC Last administered on 04/08/17 21:52; Admin Dose 5,000 UNIT; Start 04/01/17 at 21:00 Senna/Docusate Sodium (Senokot-S) 1 tab DAILY PO Last administered on 08:17; Admin Dose 1 TAB; Start 04/03/17 at 12:00 Mineral Oil (Fleet Mineral Oil Enema) 133 ml DAILY PRN [place] constipation Last administered on 04/05/17 16:41; Admin Dose 133 ML; Start 04/03/17 at 12:00 Insulin Glargine (Lantus) 16 unit QHS SC ; Start 04/09/17 at 21:00 Miscellaneous Information 1 ea NOTE XX ; Start 04/09/17 at 14:00 Glucagon (Glucagen) 1 mg Q15M PRN IM DECREASED GLUCOSE; Start 04/09/17 at 14:00 Morphine Sulfate (morphine) 2 mg Q2H PRN IV PAIN LEVEL 4-7; Start 04/09/17 at 15:00 Assessment/Plan Chief Complaint/Hosp Course Patient is know to me form out pt with history of MS with PCI of RCA, SSS s/p st sayra PPM implantation, HTN, ESRD on HD, Severe PAD and Venous disease, HLD who presented to ER with Severe SOB, found to have white out of his right lung, likely PNA, s/p thoracocentesis with 250cc fluid only. No WBC, NO fever, Less likely this is Infection at this extent, I would get Contrast CT with [place]. 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 restart VÍCTOR. HUNTER BASSETT MD Apr 09, 2017 17:21
[2017-04-09] MEDS ORDERED: NORepinephrine 8MG/250 ML (PMX 250 ML IV SCH (20:30)
[2017-04-09] MEDS: ATORVASTATIN 80 MG TAB PO SCH (21:22)
[2017-04-09] MEDS: INSULIN GLARGINE [LANtus] 3 ML PEN SC SCH (21:24)
[2017-04-10] VITALS (44 sets, daily range): BP systolic 87–139; BP diastolic 24–88; PULSE 72–111; RESP 15–25
[2017-04-10] MEDS: morphine 2 MG INJ IV PRN ×2 (00:11→18:47)
[2017-04-10] MEDS: ACCU-CHEK XX SCH (02:00)
[2017-04-10] MEDS: PANTOPRAZOLE (EC) 40 MG TAB PO SCH (06:44)
[2017-04-10 07:05] LABS: BASOPHILS % 0.3 % (0.0-2.0); EOSINOPHILS # 0.1 10^3/ul (0.0-0.5); EOSINOPHILS % 1.4 % (0.0-7.0); HEMATOCRIT 30.6 % (42.0-52.0); HEMOGLOBIN 9.4 g/dl (14.0-18.0); LYMPHOCYTES # 1.5 10^3/ul (0.8-2.9); LYMPHOCYTES % 15.1 % (15.0-51.0); MEAN CORPUSCULAR HEMOGLOBIN 25.5 pg (29.0-33.0); MEAN CORPUSCULAR HGB CONC 30.7 g/dl (32.0-37.0); MEAN CORPUSCULAR VOLUME 82.9 fl (82.0-101.0); MEAN PLATELET VOLUME 10.9 fl (7.4-10.4); MONOCYTE # 0.6 10^3/ul (0.3-0.9); MONOCYTES % 5.6 % (0.0-11.0); NEUTROPHIL # 7.5 10^3/ul (1.6-7.5); NEUTROPHILS % 76.9 % (39.0-77.0); PLATELET COUNT 313 10^3/UL (140-415); RED BLOOD COUNT 3.69 10^6/ul (4.70-6.10); RED CELL DISTRIBUTION WIDTH 14.1 % (11.5-14.5); WHITE BLOOD COUNT 9.8 10^3/ul (4.8-10.8)
[2017-04-10 07:20] LABS: CALCIUM 8.4 mg/dl (8.4-10.2); CREATININE 7.75 mg/dl (0.61-1.24); MAGNESIUM 2.2 mg/dl (1.7-2.5); PHOSPHORUS 7.7 mg/dl (2.5-4.9); POTASSIUM 5.1 mmol/L (3.5-5.1)
[2017-04-10] MEDS ORDERED: MIDODRINE 5 MG TAB PO ONE (08:00)
[2017-04-10] MEDS: ALBUTEROL 0.083% (NEB) 2.5 MG/3 ML AMP HHN SCH ×4 (08:11→21:59)
--- NOTE | 2017-04-10 08:48 | CONS ---
Date/Time of Note Date/Time of Note DATE: 04/10/17 TIME: 08:45 Assessment/Plan Assessment/Plan Additional Assessment/Plan Assessment and recommendations; next 1. Patient admitted with shortness of breath discovered to have very large right pleural effusion which was multiloculated as thoracentesis was attempted only small amount of fluid could be drained, patient subsequently required a VATS procedure which was performed yesterday. 2. End-stage renal disease, on hemodialysis. 3. Etiology of pleural effusion currently is unknown. Fluid however is lymphocytic rich, possibly parapneumonic effusion versus underlying malignancy. Continue current treatment. Obtain follow-up chest x-ray. Depending upon chest x-ray finding patient may need to have a CT scan of chest done. Pathology results are pending on the pleural tissue specimen. Consultation Date/Type/Reason Admit Date/Time Mar 30, 2017 at 15:04 Initial Consult Date 03/30/17 Type of Consultation: Pulmonary/critical care 24 HR Interval Summary Free Text/Dictation Patient's condition is stable. Underwent right VATS procedure yesterday. Patient denies any shortness of breath, chest pain, fever or chills. General exam; elderly male, awake alert, currently in no distress. Exam/Review of Systems Vital Signs Vitals Vital Signs Date Time Temp Pulse Resp B/P Pulse Ox O2 Delivery O2 Flow Rate FiO2 04/10/17 08:12 3.5 04/10/17 08:12 77 16 100 Nasal Cannula 04/10/17 04:30 89/41 04/10/17 04:00 97.8 Intake and Output 04/09/17 04/09/17 04/10/17 15:00 23:00 07:00 Intake Total 500 ml 295.625 ml 181.250 ml Output Total 360 ml 60 ml Balance 140 ml 235.625 ml 181.250 ml Exam HEENT exam; supple neck, no JVD. No lymphadenopathy. Midline trachea. No thyromegaly. Patient has fair dentition. Chest exam; diminished breath sounds right lung with a right-sided chest tube in place. Left lung is clear to auscultation. S1-S2 audible, no murmurs. Regular rhythm. Abdomen exam; soft, nontender. No organomegaly. Bowel sounds audible. Extremity exam; no edema. [employer] exam; no focal deficit. Results Result Diagram: 04/10/1759904/10/17 0600 Results 24 hrs Laboratory Tests Test 04/09/17 12:58 04/09/17 17:17 04/09/17 21:20 04/10/17 06:00 Bedside Glucose 177 147 128 White Blood Count 9.8 Red Blood Count 3.69 L Hemoglobin 9.4 L Hematocrit 30.6 L Mean Corpuscular Volume 82.9 Mean Corpuscular Hemoglobin 25.5 L Mean Corpuscular Hemoglobin Concent 30.7 L Red Cell Distribution Width 14.1 Platelet Count 313 Mean Platelet Volume 10.9 H Neutrophils % 76.9 Lymphocytes % 15.1 Monocytes % 5.6 Eosinophils % 1.4 Basophils % 0.3 Nucleated Red Blood Cells % 0.0 Neutrophils # 7.5 Lymphocytes # 1.5 Monocytes # 0.6 Eosinophils # 0.1 Basophils # 0.0 Nucleated Red Blood Cells # 0.0 Sodium Level 136 Potassium Level 5.1 Chloride Level 97 Carbon Dioxide Level 28 Anion Gap 16 Blood Urea Nitrogen 66 H Creatinine 7.75 H Glucose Level 230 H Calcium Level 8.4 Phosphorus Level 7.7 H Magnesium Level 2.2 Medications Medications Current Medications Apixaban (Eliquis) 2.5 mg BID PO Last administered on 04/01/17 08:11; Admin Dose 2.5 MG; Start 03/31/17 at 09:00; Status Future Hold Atorvastatin Calcium (Lipitor) 80 mg QHS PO Last administered on 04/09/17 21: 22; Admin Dose 80 MG; Start 03/30/17 at 21:00 Bisacodyl (Dulcolax Supp) 10 mg Q24H PRN [place] CONSTIPATION Last administered on 04/01/17 15:16; Admin Dose 10 MG; Start 03/30/17 at 14:30 Lisinopril (Zestril) 2.5 mg BID PO Last administered on 04/08/17 21:49; Admin Dose 2.5 MG; Start 03/30/17 at 21:00 Metoprolol Tartrate (Lopressor) 50 mg BID PO Last administered on 04/08/17 21: 49; Admin Dose 50 MG; Start 03/30/17 at 21:00 Nifedipine (Procardia Xl) 60 mg DAILY PO Last administered on 04/05/17 08:16; Admin Dose 60 MG; Start 03/31/17 at 09:00 Ondansetron HCl (Zofran Inj) 4 mg Q6H PRN IV NAUSEA AND/OR VOMITING; Start at 15:30 Acetaminophen (Tylenol Tab) 650 mg Q6H PRN PO PAIN LEVEL 1-3 OR FEVER; Start 03/30/17 at 15:30 Diagnostic Test (Pha) (Accu-Chek) 1 ea 02 XX Last administered on 04/09/17 02: 11; Admin Dose 1 EA; Start 03/31/17 at 02:00 Miscellaneous Information 1 ea NOTE XX ; Start 03/30/17 at 15:30 Glucose (Glutose) 15 gm Q15M PRN PO DECREASED GLUCOSE; Start 03/30/17 at 15:30 Glucose (Glutose) 22.5 gm Q15M PRN PO DECREASED GLUCOSE; Start 03/30/17 at 15: 30 Dextrose (D50w Syringe) 25 ml Q15M PRN IV DECREASED GLUCOSE; Start 03/30/17 at 15:30 Dextrose (D50w Syringe) 50 ml Q15M PRN IV DECREASED GLUCOSE; Start 03/30/17 at 15:30 Glucagon (Glucagen) 1 mg Q15M PRN IM DECREASED GLUCOSE; Start 03/30/17 at 15: 30 Glucose (Glutose) 15 gm Q15M PRN BUCCAL DECREASED GLUCOSE; Start 03/30/17 at 15:30 Guaifenesin/ Codeine Phosphate (Robitussin Ac Liquid Cup) 5 ml Q4H PRN PO cough ; Start 03/30/17 at 19:30 Lidocaine (Lmx 4% Plus) 1 applic PRN PRN TOP Prior to HD cannulation Last administered on 03/31/17 11:23; Admin Dose 1 APPLIC; Start 03/30/17 at 21:00 Pantoprazole (Protonix Tab) 40 mg DAILY@06 PO Last administered on 04/10/17 06 :44; Admin Dose 40 MG; Start 04/01/17 at 06:00 Heparin Sodium (Porcine) (Heparin (5000 Units/0.5 ml)) 5,000 unit BID SC Last administered on 04/09/17 21:25; Admin Dose 5,000 UNIT; Start 04/01/17 at 21:00 Senna/Docusate Sodium (Senokot-S) 1 tab DAILY PO Last administered on 08:17; Admin Dose 1 TAB; Start 04/03/17 at 12:00 Mineral Oil (Fleet Mineral Oil Enema) 133 ml DAILY PRN [place] constipation Last administered on 04/05/17 16:41; Admin Dose 133 ML; Start 04/03/17 at 12:00 Insulin Glargine (Lantus) 16 unit QHS SC Last administered on 04/09/17 21:24; Admin Dose 16 UNIT; Start 04/09/17 at 21:00 Miscellaneous Information 1 ea NOTE XX ; Start 04/09/17 at 14:00 Glucagon (Glucagen) 1 mg Q15M PRN IM DECREASED GLUCOSE; Start 04/09/17 at 14:00 Morphine Sulfate 2 mg 2 mg Q2H PRN IV PAIN LEVEL 4-7 Last administered on 00:11; Admin Dose 2 MG; Start 04/09/17 at 15:00 Norepinephrine (Levophed) 250 ml @ 1.875 mls/ hr TITRATE IV Last administered on 04/09/17 20:40; Admin Dose 1.875 MLS/HR; Start 04/09/17 at 20:30 TRACEY HAWKINS Apr 10, 2017 08:48
[2017-04-10] MEDS: SENNA/DOCUSATE NA (8.6MG/50MG) TAB PO SCH (08:55)
[2017-04-10] MEDS: SEVELAMER CARBONATE 0.8 GM PKT PO SCH ×3 (08:56→18:46)
[2017-04-10] MEDS: METOPROLOL 50 MG TAB PO SCH ×2 (09:00→21:00)
[2017-04-10] MEDS: NIFEdipine (XL) 60 MG TAB PO SCH (09:00)
[2017-04-10] MEDS: LISINOPRIL 5 MG TAB PO SCH ×2 (09:00→21:00)
[2017-04-10] MEDS: INSULIN ASPART [NOVOLOG] 3 ML PEN SC SCH ×7 (09:03→21:00)
[2017-04-10] MEDS: HEPARIN 5,000 UNIT/0.5 ML VIAL SC SCH ×2 (09:28→21:03)
--- NOTE | 2017-04-10 09:33 | RADRPT ---
PROCEDURE: XR Chest. CLINICAL INDICATION: Pleural effusion TECHNIQUE: AP portable chest COMPARISON: Chest 04/09/2017 FINDINGS: During the interval there has been placement of a right chest tube. No evidence of pneumothorax. The patient has an expiration. Significant improvement of the right hemithorax with a small right pleur al effusion. There is right lung consolidation consistent with atelectasis and/or pneumonia. Minimal patchy density at the left base with the remainder left lung clear. No definite left pleural effusi on. The heart is enlarged without pulmonary vascular congestion. IMPRESSION: 1. Interval placement of right chest tube with significant improvement of the right hemithorax with a residual small right pleural effusion and right lung consolidation consistent with atelectasis an d/or pneumonia. 2. Cardiomegaly without congestive heart failure. 3. No pneumothorax. RPTAT:AAJJ Physician Ernesto Date Time Electronically viewed and signed by Physician Ernesto on 04/10/2017 09:33 /
--- NOTE | 2017-04-10 11:16 | PN ---
Date/Time of Note Date/Time of Note DATE: 04/10/17 TIME: 11:14 Assessment/Plan Lines/Catheters IV Catheter Type (from Nrsg): A Line Yañez in Place (from Nrsg): No Assessment/Plan Chief Complaint/Hosp Course IMPRESSION: Right-sided pleural effusion which appears to be loculated. RECOMMENDATIONS: SP video-assisted thoracic surgery and decortication. CXR 1. Interval placement of right chest tube with significant improvement of the right hemithorax with a residual small right pleural effusion and right lung consolidation consistent with atelectasis and/or pneumonia. 2. Cardiomegaly without congestive heart failure. 3. No pneumothorax. will continue CT sxn Will discuss with the referring physicians. Problems: Subjective 24 Hr Interval Summary Constitutional: improved Pain Control: mild Exam/Review of Systems Vital Signs Vitals Vital Signs Date Time Temp Pulse Resp B/P Pulse Ox O2 Delivery O2 Flow Rate FiO2 04/10/17 08:12 3.5 04/10/17 08:12 77 16 100 Nasal Cannula 04/10/17 04:30 89/41 04/10/17 04:00 97.8 Intake and Output 04/09/17 04/09/17 04/10/17 14:59 22:59 06:59 Intake Total 500 ml 175.625 ml 301.250 ml Output Total 310 ml 110 ml Balance 190 ml 65.625 ml 301.250 ml Exam ENMT: mucosa pink and moist, nl external ears & nose, nl lips & teeth, nl nasal mucosa & septum Neck: non-tender, supple Respiratory: clear to auscultation, normal air movement Cardiovascular: nl pulses, regular rate and rhythm Results Result Diagram: 04/10/17 0604/10/17 06 SHAYLA YAÑEZ MD Apr 10, 2017 11:16
--- NOTE | 2017-04-10 14:19 | PN ---
Date/Time of Note Date/Time of Note DATE: 04/10/17 TIME: 14:14 Assessment/Plan VTE Prophylaxis VTE Prophylaxis Intervention: SCD's Lines/Catheters IV Catheter Type (from Nrs): A Line Urinary Cath still in place: No Assessment/Plan Chief Complaint/Hosp Course s: 12.4 no acute changes, but patient's son refusing surgery due to HD 12.5 no acute complaints 12.6 no acute complaints, awaiting surgery 12.7 patient surgery today 12.8 patient doing well in the ICU today, no acute complaints o: Physical exam General: Patient is laying in bed and answers questions appropriately Mentation: Patient is alert and oriented 4, Head: Normocephalic atraumatic Eyes: EOMI, pupils reactive to light Neck: Supple, nontender, midline Respiratory: coarse to auscultation bilaterally Cardiovascular: regular rate, no obvious murmurs Gastrointestinal: non-tender to palpation, bowel sounds heard. Neurological: Moves all extremities spontaneously Skin: No new skin lesions Assessment/Plan Acute hypoxic respiratory failure secondary to pleural effusion in right lung, s /p VATS 04.09.17 - VATS yesterday - no respiratory distress, resolved Large Right pleural effusion s/p thoracentesis 03/30 - VATS done 04.09.17 - s/p chest tube placement per CT surgery Acute on chronic CHF - Last ECHO 10/2016 showed EF 65% with stage 1 diastolic dysfunction - Monitor I/O and daily weights - CXR shows cardiomegaly - Cardiology consultation appreciated ESRD on HD - patient on // scheduled - Nephrology consultation appreciated Hypertensive urgency - BP controlled on home medications DM, type 2 - Will increase lantus dosing to 12 units - ISS and accuchecks - A1c 6.9 Heart block/bradycardia with PPM - cardiology on board CAD s/p stent 10/2016 - continue on home medications - Holding Plavix Atrial fibrillation - on BB, Eliquis on hold - rate controlled Oliguria - on HD Constipation - given Senna S and suppository. Will try mineral oil enema Disposition - pending CT surgery recs on chest tube - dispo when able Problems: Exam/Review of Systems Vital Signs Vitals Vital Signs Date Time Temp Pulse Resp B/P Pulse Ox O2 Delivery O2 Flow Rate FiO2 04/10/17 12:21 83 20 100 Nasal Cannula 2.0 04/10/17 04:30 89/41 12/8/17 04:00 97.8 Intake and Output 04/09/17 04/09/17 04/10/17 14:59 22:59 06:59 Intake Total 500 ml 175.625 ml 301.250 ml Output Total 310 ml 110 ml Balance 190 ml 65.625 ml 301.250 ml Results Result Diagram: 04/10/17 0600 04/10/17 0600 Results 24 hrs Laboratory Tests Test 04/09/17 17:17 04/09/17 21:20 04/10/17 06:00 04/10/17 08:50 Bedside Glucose 147 128 231 H White Blood Count 9.8 Red Blood Count 3.69 L Hemoglobin 9.4 L Hematocrit 30.6 L Mean Corpuscular Volume 82.9 Mean Corpuscular Hemoglobin 25.5 L Mean Corpuscular Hemoglobin Concent 30.7 L Red Cell Distribution Width 14.1 Platelet Count 313 Mean Platelet Volume 10.9 H Neutrophils % 76.9 Lymphocytes % 15.1 Monocytes % 5.6 Eosinophils % 1.4 Basophils % 0.3 Nucleated Red Blood Cells % 0.0 Neutrophils # 7.5 Lymphocytes # 1.5 Monocytes # 0.6 Eosinophils # 0.1 Basophils # 0.0 Nucleated Red Blood Cells # 0.0 Sodium Level 136 Potassium Level 5.1 Chloride Level 97 Carbon Dioxide Level 28 Anion Gap 16 Blood Urea Nitrogen 66 H Creatinine 7.75 H Glucose Level 230 H Calcium Level 8.4 Phosphorus Level 7.7 H Magnesium Level 2.2 Test 04/10/17 12:22 Bedside Glucose 201 Medications Medications Current Medications Apixaban (Eliquis) 2.5 mg BID PO Last administered on 04/01/17 08:11; Admin Dose 2.5 MG; Start 03/31/17 at 09:00; Status Future Hold Atorvastatin Calcium (Lipitor) 80 mg QHS PO Last administered on 04/09/17 21: 22; Admin Dose 80 MG; Start 03/30/17 at 21:00 Bisacodyl (Dulcolax Supp) 10 mg Q24H PRN [place] CONSTIPATION Last administered on 04/01/17 15:16; Admin Dose 10 MG; Start 03/30/17 at 14:30 Lisinopril (Zestril) 2.5 mg BID PO Last administered on 04/08/17 21:49; Admin Dose 2.5 MG; Start 03/30/17 at 21:00 Metoprolol Tartrate (Lopressor) 50 mg BID PO Last administered on 04/08/17 21: 49; Admin Dose 50 MG; Start 03/30/17 at 21:00 Nifedipine (Procardia Xl) 60 mg DAILY PO Last administered on 04/05/17 08:16; Admin Dose 60 MG; Start 03/31/17 at 09:00 Ondansetron HCl (Zofran Inj) 4 mg Q6H PRN IV NAUSEA AND/OR VOMITING; Start at 15:30 Acetaminophen (Tylenol Tab) 650 mg Q6H PRN PO PAIN LEVEL 1-3 OR FEVER; Start 03/30/17 at 15:30 Diagnostic Test (Pha) (Accu-Chek) 1 ea 02 XX Last administered on 04/09/17 02: 11; Admin Dose 1 EA; Start 03/31/17 at 02:00 Miscellaneous Information 1 ea NOTE XX ; Start 03/30/17 at 15:30 Glucose (Glutose) 15 gm Q15M PRN PO DECREASED GLUCOSE; Start 03/30/17 at 15:30 Glucose (Glutose) 22.5 gm Q15M PRN PO DECREASED GLUCOSE; Start 03/30/17 at 15: 30 Dextrose (D50w Syringe) 25 ml Q15M PRN IV DECREASED GLUCOSE; Start 03/30/17 at 15:30 Dextrose (D50w Syringe) 50 ml Q15M PRN IV DECREASED GLUCOSE; Start 03/30/17 at 15:30 Glucagon (Glucagen) 1 mg Q15M PRN IM DECREASED GLUCOSE; Start 03/30/17 at 15: 30 Glucose (Glutose) 15 gm Q15M PRN BUCCAL DECREASED GLUCOSE; Start 03/30/17 at 15:30 Guaifenesin/ Codeine Phosphate (Robitussin Ac Liquid Cup) 5 ml Q4H PRN PO cough ; Start 03/30/17 at 19:30 Lidocaine (Lmx 4% Plus) 1 applic PRN PRN TOP Prior to HD cannulation Last administered on 03/31/17 11:23; Admin Dose 1 APPLIC; Start 03/30/17 at 21:00 Pantoprazole (Protonix Tab) 40 mg DAILY@06 PO Last administered on 04/10/17 06 :44; Admin Dose 40 MG; Start 04/01/17 at 06:00 Heparin Sodium (Porcine) (Heparin (5000 Units/0.5 ml)) 5,000 unit BID SC Last administered on 04/10/17 09:28; Admin Dose 5,000 UNIT; Start 04/01/17 at 21:00 Senna/Docusate Sodium (Senokot-S) 1 tab DAILY PO Last administered on 08:55; Admin Dose 1 TAB; Start 04/03/17 at 12:00 Mineral Oil (Fleet Mineral Oil Enema) 133 ml DAILY PRN [place] constipation Last administered on 04/05/17 16:41; Admin Dose 133 ML; Start 04/03/17 at 12:00 Insulin Glargine (Lantus) 16 unit QHS SC Last administered on 04/09/17 21:24; Admin Dose 16 UNIT; Start 04/09/17 at 21:00 Miscellaneous Information 1 ea NOTE XX ; Start 04/09/17 at 14:00 Glucagon (Glucagen) 1 mg Q15M PRN IM DECREASED GLUCOSE; Start 04/09/17 at 14:00 Morphine Sulfate 2 mg 2 mg Q2H PRN IV PAIN LEVEL 4-7 Last administered on 00:11; Admin Dose 2 MG; Start 04/09/17 at 15:00 Norepinephrine (Levophed) 250 ml @ 1.875 mls/ hr TITRATE IV Last administered on 04/09/17 20:40; Admin Dose 1.875 MLS/HR; Start 04/09/17 at 20:30 ANANTH PATEL Apr 10, 2017 14:19
[2017-04-10] MEDS ORDERED: ALBUMIN HUMAN 5% 500 ML ONE (15:24)
[2017-04-10] MEDS ORDERED: ALBUMIN HUMAN 25% 100 ML ONE (15:28)
--- NOTE | 2017-04-10 17:34 | CONS ---
Date/Time of Note Date/Time of Note DATE: 04/10/17 TIME: 17:31 Assessment/Plan Assessment/Plan Additional Assessment/Plan 1. Acute hypoxic resp failure due to acute fluid overload and Pleural effusion 2. ESRD on HD -TTS schedule 3. Right hemithorax multiple loculated right pleural effusion s/p Thoracentesis 250 cc drained- pt has multiple pockets of loculated effusion 4. h/o CAD s/p CABG 5/ H/o recent UT and s/p stenting by 6/ HTN 7/ HL Plan: s/p VATS with decortication, + chest tub ein place, midodrine 5mg pOx 1 dose for low Plan for HD today . no plan for HD tomorrow, will plan for next HD on Thursday then pt will be on his regular schedule, , , thursday will follow up Consultation Date/Type/Reason Admit Date/Time Mar 30, 2017 at 15:04 Initial Consult Date 03/30/17 Type of Consultation: NEPHROLOGY 24 HR Interval Summary Free Text/Dictation s/p VATS with Decortication, currenty in ICU, BP stable Exam/Review of Systems Vital Signs Vitals Vital Signs Date Time Temp Pulse Resp B/P Pulse Ox O2 Delivery O2 Flow Rate FiO2 04/10/17 16:32 100 18 100 Nasal Cannula 2.0 04/10/17 04:30 89/41 04/10/17 04:00 97.8 Intake and Output 04/09/17 04/09/17 04/10/17 15:00 23:00 07:00 Intake Total 500 ml 295.625 ml 181.250 ml Output Total 360 ml 60 ml Balance 140 ml 235.625 ml 181.250 ml Exam Constitutional: alert Head: normocephalic Eyes: nl conjunctiva ENMT: nl external ears & nose Neck: supple Respiratory: crackles/rales, diminished breath sounds, other (+ chest tube in place) Cardiovascular: nl pulses, regular rate and rhythm Gastrointestinal: non-tender, soft Musculoskeletal: nl extremities to inspection Neurological: COVER ASSEMBLER II-XII intact, nl mental status, nl speech Results Result Diagram: 04/10/17 0600 04/10/17 0600 Results 24 hrs Laboratory Tests Test 04/09/17 21:20 04/10/17 06:00 04/10/17 08:50 04/10/17 12:22 Bedside Glucose 128 231 H 201 White Blood Count 9.8 Red Blood Count 3.69 L Hemoglobin 9.4 L Hematocrit 30.6 L Mean Corpuscular Volume 82.9 Mean Corpuscular Hemoglobin 25.5 L Mean Corpuscular Hemoglobin Concent 30.7 L Red Cell Distribution Width 14.1 Platelet Count 313 Mean Platelet Volume 10.9 H Neutrophils % 76.9 Lymphocytes % 15.1 Monocytes % 5.6 Eosinophils % 1.4 Basophils % 0.3 Nucleated Red Blood Cells % 0.0 Neutrophils # 7.5 Lymphocytes # 1.5 Monocytes # 0.6 Eosinophils # 0.1 Basophils # 0.0 Nucleated Red Blood Cells # 0.0 Sodium Level 136 Potassium Level 5.1 Chloride Level 97 Carbon Dioxide Level 28 Anion Gap 16 Blood Urea Nitrogen 66 H Creatinine 7.75 H Glucose Level 230 H Calcium Level 8.4 Phosphorus Level 7.7 H Magnesium Level 2.2 Medications Medications Current Medications Apixaban (Eliquis) 2.5 mg BID PO Last administered on 04/01/17 08:11; Admin Dose 2.5 MG; Start 03/31/17 at 09:00; Status Future Hold Atorvastatin Calcium (Lipitor) 80 mg QHS PO Last administered on 04/09/17 21: 22; Admin Dose 80 MG; Start 03/30/17 at 21:00 Bisacodyl (Dulcolax Supp) 10 mg Q24H PRN [place] CONSTIPATION Last administered on 04/01/17 15:16; Admin Dose 10 MG; Start 03/30/17 at 14:30 Lisinopril (Zestril) 2.5 mg BID PO Last administered on 04/08/17 21:49; Admin Dose 2.5 MG; Start 03/30/17 at 21:00 Metoprolol Tartrate (Lopressor) 50 mg BID PO Last administered on 04/08/17 21: 49; Admin Dose 50 MG; Start 03/30/17 at 21:00 Nifedipine (Procardia Xl) 60 mg DAILY PO Last administered on 04/05/17 08:16; Admin Dose 60 MG; Start 03/31/17 at 09:00 Ondansetron HCl (Zofran Inj) 4 mg Q6H PRN IV NAUSEA AND/OR VOMITING; Start at 15:30 Acetaminophen (Tylenol Tab) 650 mg Q6H PRN PO PAIN LEVEL 1-3 OR FEVER; Start 03/30/17 at 15:30 Diagnostic Test (Pha) (Accu-Chek) 1 ea 02 XX Last administered on 04/09/17 02: 11; Admin Dose 1 EA; Start 03/31/17 at 02:00 Miscellaneous Information 1 ea NOTE XX ; Start 03/30/17 at 15:30 Glucose (Glutose) 15 gm Q15M PRN PO DECREASED GLUCOSE; Start 03/30/17 at 15:30 Glucose (Glutose) 22.5 gm Q15M PRN PO DECREASED GLUCOSE; Start 03/30/17 at 15: 30 Dextrose (D50w Syringe) 25 ml Q15M PRN IV DECREASED GLUCOSE; Start 03/30/17 at 15:30 Dextrose (D50w Syringe) 50 ml Q15M PRN IV DECREASED GLUCOSE; Start 03/30/17 at 15:30 Glucagon (Glucagen) 1 mg Q15M PRN IM DECREASED GLUCOSE; Start 03/30/17 at 15: 30 Glucose (Glutose) 15 gm Q15M PRN BUCCAL DECREASED GLUCOSE; Start 03/30/17 at 15:30 Guaifenesin/ Codeine Phosphate (Robitussin Ac Liquid Cup) 5 ml Q4H PRN PO cough ; Start 03/30/17 at 19:30 Lidocaine (Lmx 4% Plus) 1 applic PRN PRN TOP Prior to HD cannulation Last administered on 03/31/17 11:23; Admin Dose 1 APPLIC; Start 03/30/17 at 21:00 Pantoprazole (Protonix Tab) 40 mg DAILY@06 PO Last administered on 04/10/17 06 :44; Admin Dose 40 MG; Start 04/01/17 at 06:00 Heparin Sodium (Porcine) (Heparin (5000 Units/0.5 ml)) 5,000 unit BID SC Last administered on 04/10/17 09:28; Admin Dose 5,000 UNIT; Start 04/01/17 at 21:00 Senna/Docusate Sodium (Senokot-S) 1 tab DAILY PO Last administered on 08:55; Admin Dose 1 TAB; Start 04/03/17 at 12:00 Mineral Oil (Fleet Mineral Oil Enema) 133 ml DAILY PRN [place] constipation Last administered on 04/05/17 16:41; Admin Dose 133 ML; Start 04/03/17 at 12:00 Insulin Glargine (Lantus) 16 unit QHS SC Last administered on 04/09/17 21:24; Admin Dose 16 UNIT; Start 04/09/17 at 21:00 Miscellaneous Information 1 ea NOTE XX ; Start 04/09/17 at 14:00 Glucagon (Glucagen) 1 mg Q15M PRN IM DECREASED GLUCOSE; Start 04/09/17 at 14:00 Morphine Sulfate 2 mg 2 mg Q2H PRN IV PAIN LEVEL 4-7 Last administered on 00:11; Admin Dose 2 MG; Start 04/09/17 at 15:00 Norepinephrine (Levophed) 250 ml @ 1.875 mls/ hr TITRATE IV Last administered on 04/09/17 20:40; Admin Dose 1.875 MLS/HR; Start 04/09/17 at 20:30 RAYNE FITCH MD Apr 10, 2017 17:34
[2017-04-10] MEDS ORDERED: morphine 4 MG/ML VIAL IV PRN (20:30)
[2017-04-10] MEDS: INSULIN GLARGINE [LANtus] 3 ML PEN SC SCH (21:13)
[2017-04-10] MEDS: ATORVASTATIN 80 MG TAB PO SCH (21:20)
[2017-04-11] VITALS (15 sets, daily range): BP systolic 95–178; BP diastolic 55–87; PULSE 97–155; RESP 18–20
[2017-04-11] MEDS: ACCU-CHEK XX SCH (01:58)
[2017-04-11] MEDS: PANTOPRAZOLE (EC) 40 MG TAB PO SCH (04:35)
[2017-04-11] MEDS: HYDROCODONE/APAP (10/325) TAB PO PRN ×2 (04:36→22:17)
[2017-04-11 08:25] LABS: BASOPHILS % 0.4 % (0.0-2.0); EOSINOPHILS # 0.1 10^3/ul (0.0-0.5); EOSINOPHILS % 1.6 % (0.0-7.0); HEMATOCRIT 26.9 % (42.0-52.0); HEMOGLOBIN 8.2 g/dl (14.0-18.0); LYMPHOCYTES % 13.6 % (15.0-51.0); MEAN CORPUSCULAR HEMOGLOBIN 25.8 pg (29.0-33.0); MEAN CORPUSCULAR HGB CONC 30.5 g/dl (32.0-37.0); MEAN CORPUSCULAR VOLUME 84.6 fl (82.0-101.0); MEAN PLATELET VOLUME 10.9 fl (7.4-10.4); MONOCYTE # 0.5 10^3/ul (0.3-0.9); MONOCYTES % 7.2 % (0.0-11.0); NEUTROPHIL # 5.7 10^3/ul (1.6-7.5); NEUTROPHILS % 76.1 % (39.0-77.0); PLATELET COUNT 218 10^3/UL (140-415); RED BLOOD COUNT 3.18 10^6/ul (4.70-6.10); WHITE BLOOD COUNT 7.5 10^3/ul (4.8-10.8)
[2017-04-11 08:48] LABS: CALCIUM 8.8 mg/dl (8.4-10.2); CREATININE 5.86 mg/dl (0.61-1.24); MAGNESIUM 2.2 mg/dl (1.7-2.5); PHOSPHORUS 5.4 mg/dl (2.5-4.9); POTASSIUM 4.1 mmol/L (3.5-5.1)
[2017-04-11] MEDS: ALBUTEROL 0.083% (NEB) 2.5 MG/3 ML AMP HHN SCH ×4 (08:48→21:11)
[2017-04-11] MEDS: INSULIN ASPART [NOVOLOG] 3 ML PEN SC SCH ×7 (08:55→21:00)
[2017-04-11] MEDS: NIFEdipine (XL) 60 MG TAB PO SCH (09:00)
[2017-04-11] MEDS: LISINOPRIL 5 MG TAB PO SCH ×2 (09:00→21:00)
[2017-04-11] MEDS: METOPROLOL 50 MG TAB PO SCH ×3 (09:00→21:46)
--- NOTE | 2017-04-11 09:20 | PN ---
Date/Time of Note Date/Time of Note DATE: 04/11/17 TIME: 09:18 Assessment/Plan Lines/Catheters IV Catheter Type (from Nrsg): A Line Yañez in Place (from Nrsg): No Assessment/Plan Chief Complaint/Hosp Course IMPRESSION: Right-sided pleural effusion which appears to be loculated. RECOMMENDATIONS: SP video-assisted thoracic surgery and decortication. CXR 1. Interval placement of right chest tube with significant improvement of the right hemithorax with a residual small right pleural effusion and right lung consolidation consistent with atelectasis and/or pneumonia. 2. Cardiomegaly without congestive heart failure. 3. No pneumothorax. CT [address] sxn Problems: Subjective 24 Hr Interval Summary Constitutional: improved Pain Control: mild Exam/Review of Systems Vital Signs Vitals Vital Signs Date Time Temp Pulse Resp B/P Pulse Ox O2 Delivery O2 Flow Rate FiO2 04/11/17 08:27 97 04/11/17 07:32 98.6 20 131/58 96 04/11/17 00:10 2.0 04/10/17 22:03 Nasal Cannula Intake and Output 04/10/17 04/10/17 04/11/17 15:00 23:00 07:00 Intake Total 300 ml 150 ml 100 ml Output Total 40 ml 70 ml Balance 300 ml 110 ml 30 ml Exam Neck: non-tender, supple Respiratory: clear to auscultation, normal air movement Cardiovascular: nl pulses, regular rate and rhythm Gastrointestinal: nl liver, spleen, non-tender, soft Results Result Diagram: 04/11/17 0728 04/11/17 0728 SHAYLA YAÑEZ MD Apr 11, 2017 09:20
[2017-04-11] MEDS: SEVELAMER CARBONATE 0.8 GM PKT PO SCH ×3 (09:37→18:14)
[2017-04-11] MEDS: SENNA/DOCUSATE NA (8.6MG/50MG) TAB PO SCH (09:38)
[2017-04-11] MEDS: HEPARIN 5,000 UNIT/0.5 ML VIAL SC SCH ×2 (09:41→22:04)
[2017-04-11] MEDS ORDERED: AMIODARONE 200 MG TAB ONE (11:57)
[2017-04-11] MEDS: AMIODARONE 200 MG TAB PO SCH (12:00)
--- NOTE | 2017-04-11 14:27 | PN ---
Date/Time of Note Date/Time of Note DATE: 04/11/17 TIME: 14:23 Assessment/Plan VTE Prophylaxis VTE Prophylaxis Intervention: SCD's Lines/Catheters IV Catheter Type (from Nrs): A Line Urinary Cath still in place: No Assessment/Plan Chief Complaint/Hosp Course s: 12.4 no acute changes, but patient's son refusing surgery due to HD 12.5 no acute complaints 12.6 no acute complaints, awaiting surgery 12.7 patient surgery today 12.8 patient doing well in the ICU today, no acute complaints 12.9 downgraded, patient doing well o: Physical exam General: Patient is laying in bed and answers questions appropriately Mentation: Patient is alert and oriented 4, Head: Normocephalic atraumatic Eyes: EOMI, pupils reactive to light Neck: Supple, nontender, midline Respiratory: coarse to auscultation bilaterally Cardiovascular: regular rate, no obvious murmurs Gastrointestinal: non-tender to palpation, bowel sounds heard. Neurological: Moves all extremities spontaneously Skin: No new skin lesions Assessment/Plan Acute hypoxic respiratory failure secondary to pleural effusion in right lung, s /p VATS .. - chest tube still in - no respiratory distress, resolved Large Right pleural effusion s/p thoracentesis 03/30 - VATS done .. - s/p chest tube placement per CT surgery Acute on chronic CHF - Last ECHO 10/2016 showed EF 65% with stage 1 diastolic dysfunction - Monitor I/O and daily weights - CXR shows cardiomegaly - Cardiology consultation appreciated ESRD on HD - patient on / scheduled - Nephrology consultation appreciated Hypertensive urgency - BP controlled on home medications DM, type 2 - Will increase lantus dosing to 12 units - ISS and accuchecks - A1c 6.9 Heart block/bradycardia with PPM - cardiology on board CAD s/p stent 10/2016 - continue on home medications - Holding Plavix Atrial fibrillation - on BB, Eliquis on hold - rate controlled Oliguria - on HD Constipation - given Senna S and suppository. Will try mineral oil enema Disposition - pending CT surgery recs on chest tube -will restart plavix/eliquis when ok with CT surgery - dispo when able Problems: Exam/Review of Systems Vital Signs Vitals Vital Signs Date Time Temp Pulse Resp B/P Pulse Ox O2 Delivery O2 Flow Rate FiO2 04/11/17 13:13 2.0 04/11/17 13:11 68 20 98 Nasal Cannula 04/11/17 12:05 102/58 04/11/17 11:39 98.0 04/11/17 09:04 98 Intake and Output 04/10/17 04/10/17 04/11/17 15:00 23:00 07:00 Intake Total 300 ml 150 ml 100 ml Output Total 40 ml 70 ml Balance 300 ml 110 ml 30 ml Results Result Diagram: 04/11/1728 04/11/17727 Results 24 hrs Laboratory Tests Test 04/10/17 18:38 04/10/17 21:07 04/11/17 07:28 04/11/17 08:50 Bedside Glucose 215 167 224 H White Blood Count 7.5 # Red Blood Count 3.18 L Hemoglobin 8.2 L Hematocrit 26.9 L Mean Corpuscular Volume 84.6 Mean Corpuscular Hemoglobin 25.8 L Mean Corpuscular Hemoglobin Concent 30.5 L Red Cell Distribution Width 14.0 Platelet Count 218 # Mean Platelet Volume 10.9 H Neutrophils % 76.1 Lymphocytes % 13.6 L Monocytes % 7.2 Eosinophils % 1.6 Basophils % 0.4 Nucleated Red Blood Cells % 0.0 Neutrophils # 5.7 Lymphocytes # 1.0 Monocytes # 0.5 Eosinophils # 0.1 Basophils # 0.0 Nucleated Red Blood Cells # 0.0 Sodium Level 137 Potassium Level 4.1 Chloride Level 96 L Carbon Dioxide Level 30 Anion Gap 15 Blood Urea Nitrogen 37 #H Creatinine 5.86 H Glucose Level 239 H Calcium Level 8.8 Phosphorus Level 5.4 #H Magnesium Level 2.2 Test 04/11/17 12:54 Bedside Glucose 166 Medications Medications Current Medications Apixaban (Eliquis) 2.5 mg BID PO Last administered on 04/01/17 08:11; Admin Dose 2.5 MG; Start 03/31/17 at 09:00; Status Future Hold Atorvastatin Calcium (Lipitor) 80 mg QHS PO Last administered on 04/10/17 21: 20; Admin Dose 80 MG; Start 03/30/17 at 21:00 Bisacodyl (Dulcolax Supp) 10 mg Q24H PRN [place] CONSTIPATION Last administered on 04/01/17 15:16; Admin Dose 10 MG; Start 03/30/17 at 14:30 Lisinopril (Zestril) 2.5 mg BID PO Last administered on 04/08/17 21:49; Admin Dose 2.5 MG; Start 03/30/17 at 21:00 Metoprolol Tartrate (Lopressor) 50 mg BID PO Last administered on 04/11/17 10: 28; Admin Dose 50 MG; Start 03/30/17 at 21:00 Nifedipine (Procardia Xl) 60 mg DAILY PO Last administered on 04/05/17 08:16; Admin Dose 60 MG; Start 03/31/17 at 09:00 Ondansetron HCl (Zofran Inj) 4 mg Q6H PRN IV NAUSEA AND/OR VOMITING; Start at 15:30 Acetaminophen (Tylenol Tab) 650 mg Q6H PRN PO PAIN LEVEL 1-3 OR FEVER; Start 03/30/17 at 15:30 Diagnostic Test (Pha) (Accu-Chek) 1 ea 02 XX Last administered on 04/09/17 02: 11; Admin Dose 1 EA; Start 03/31/17 at 02:00 Miscellaneous Information 1 ea NOTE XX ; Start 03/30/17 at 15:30 Glucose (Glutose) 15 gm Q15M PRN PO DECREASED GLUCOSE; Start 03/30/17 at 15:30 Glucose (Glutose) 22.5 gm Q15M PRN PO DECREASED GLUCOSE; Start 03/30/17 at 15: 30 Dextrose (D50w Syringe) 25 ml Q15M PRN IV DECREASED GLUCOSE; Start 03/30/17 at 15:30 Dextrose (D50w Syringe) 50 ml Q15M PRN IV DECREASED GLUCOSE; Start 03/30/17 at 15:30 Glucagon (Glucagen) 1 mg Q15M PRN IM DECREASED GLUCOSE; Start 03/30/17 at 15: 30 Glucose (Glutose) 15 gm Q15M PRN BUCCAL DECREASED GLUCOSE; Start 03/30/17 at 15:30 Guaifenesin/ Codeine Phosphate (Robitussin Ac Liquid Cup) 5 ml Q4H PRN PO cough ; Start 03/30/17 at 19:30 Lidocaine (Lmx 4% Plus) 1 applic PRN PRN TOP Prior to HD cannulation Last administered on 03/31/17 11:23; Admin Dose 1 APPLIC; Start 03/30/17 at 21:00 Pantoprazole (Protonix Tab) 40 mg DAILY@06 PO Last administered on 04/11/17 04 :35; Admin Dose 40 MG; Start 04/01/17 at 06:00 Heparin Sodium (Porcine) (Heparin (5000 Units/0.5 ml)) 5,000 unit BID SC Last administered on 04/11/17 09:41; Admin Dose 5,000 UNIT; Start 04/01/17 at 21:00 Senna/Docusate Sodium (Senokot-S) 1 tab DAILY PO Last administered on 09:38; Admin Dose 1 TAB; Start 04/03/17 at 12:00 Mineral Oil (Fleet Mineral Oil Enema) 133 ml DAILY PRN [place] constipation Last administered on 04/05/17 16:41; Admin Dose 133 ML; Start 04/03/17 at 12:00 Insulin Glargine (Lantus) 16 unit QHS SC Last administered on 04/10/17 21:13; Admin Dose 16 UNIT; Start 04/09/17 at 21:00 Miscellaneous Information 1 ea NOTE XX ; Start 04/09/17 at 14:00 Glucagon (Glucagen) 1 mg Q15M PRN IM DECREASED GLUCOSE; Start 04/09/17 at 14:00 Morphine Sulfate 2 mg 2 mg Q2H PRN IV PAIN LEVEL 4-7 Last administered on 18:47; Admin Dose 2 MG; Start 04/09/17 at 15:00 Norepinephrine (Levophed) 250 ml @ 1.875 mls/ hr TITRATE IV Last administered on 04/09/17 20:40; Admin Dose 1.875 MLS/HR; Start 04/09/17 at 20:30 Morphine Sulfate (morphine) 4 mg Q4H PRN IV MODERATE PAIN LEVEL 4-6 Last administered on 04/10/17 20:35; Admin Dose 4 MG; Start 04/10/17 at 20:30 Acetaminophen/ Hydrocodone Bitart ([place] (10/325)) 1 tab Q4H PRN PO PAIN Last administered on 04/11/17 04:36; Admin Dose 1 TAB; Start 04/10/17 at 20:30 Amiodarone HCl (Cordarone) 100 mg DAILY PO Last administered on 12/9/17at 12:00 ; Admin Dose 100 MG; Start 04/11/17 at 09:00 ANANTH PATEL Apr 11, 2017 14:27
--- NOTE | 2017-04-11 15:02 | CONS ---
Date/Time of Note Date/Time of Note DATE: 04/11/17 TIME: 14:56 Assessment/Plan Assessment/Plan Additional Assessment/Plan 1. Acute hypoxic resp failure due to acute fluid overload and Pleural effusion 2. ESRD on HD -TTS schedule 3. Right hemithorax multiple loculated right pleural effusion s/p Thoracentesis 250 cc drained- pt has multiple pockets of loculated effusion 4. h/o CAD s/p CABG 5/ H/o recent [place] and s/p stenting by 6/ HTN 7/ HL 8. Anemia Plan: -s/p VATS with decortication, + right chest tub in place, - no plan for HD today will plan for next HD on Thursday then pt will be on his regular schedule, , , Thursday will follow up dw Dr Rowan Huerta Consultation Date/Type/Reason Admit Date/Time Mar 30, 2017 at 15:04 Initial Consult Date 03/30/17 Type of Consultation: NEPHROLOGY 24 HR Interval Summary Free Text/Dictation - nad - comfortable on supplement oxygen - s/p VATS with Decortication BP stable - family at bed side- all Qs answered Exam/Review of Systems Vital Signs Vitals Vital Signs Date Time Temp Pulse Resp B/P Pulse Ox O2 Delivery O2 Flow Rate FiO2 04/11/17 13:13 2.0 04/11/17 13:11 68 20 98 Nasal Cannula 04/11/17 12:05 102/58 04/11/17 11:39 98.0 04/11/17 09:04 98 Intake and Output 04/10/17 04/10/17 04/11/17 15:00 23:00 07:00 Intake Total 300 ml 150 ml 100 ml Output Total 40 ml 70 ml Balance 300 ml 110 ml 30 ml Exam Constitutional: alert, well developed Respiratory: diminished breath sounds (SP Right VATS- chest tube noted), normal air movement Cardiovascular: nl pulses Gastrointestinal: non-tender, soft Musculoskeletal: nl extremities to inspection Extremities: normal pulses Neurological: other (aler/ awake. follows simple commands. ) Results Result Diagram: 04/11/1728 04/11/17727 Results 24 hrs Laboratory Tests Test 04/10/17 18:38 04/10/17 21:07 04/11/17 07:28 04/11/17 08:50 Bedside Glucose 215 167 224 H White Blood Count 7.5 # Red Blood Count 3.18 L Hemoglobin 8.2 L Hematocrit 26.9 L Mean Corpuscular Volume 84.6 Mean Corpuscular Hemoglobin 25.8 L Mean Corpuscular Hemoglobin Concent 30.5 L Red Cell Distribution Width 14.0 Platelet Count 218 # Mean Platelet Volume 10.9 H Neutrophils % 76.1 Lymphocytes % 13.6 L Monocytes % 7.2 Eosinophils % 1.6 Basophils % 0.4 Nucleated Red Blood Cells % 0.0 Neutrophils # 5.7 Lymphocytes # 1.0 Monocytes # 0.5 Eosinophils # 0.1 Basophils # 0.0 Nucleated Red Blood Cells # 0.0 Sodium Level 137 Potassium Level 4.1 Chloride Level 96 L Carbon Dioxide Level 30 Anion Gap 15 Blood Urea Nitrogen 37 #H Creatinine 5.86 H Glucose Level 239 H Calcium Level 8.8 Phosphorus Level 5.4 #H Magnesium Level 2.2 Test 04/11/17 12:54 Bedside Glucose 166 Medications Medications Current Medications Atorvastatin Calcium (Lipitor) 80 mg QHS PO Last administered on 04/10/17 21: 20; Admin Dose 80 MG; Start 03/30/17 at 21:00 Bisacodyl (Dulcolax Supp) 10 mg Q24H PRN [place] CONSTIPATION Last administered on 04/01/17 15:16; Admin Dose 10 MG; Start 03/30/17 at 14:30 Lisinopril (Zestril) 2.5 mg BID PO Last administered on 04/08/17 21:49; Admin Dose 2.5 MG; Start 03/30/17 at 21:00 Metoprolol Tartrate (Lopressor) 50 mg BID PO Last administered on 04/11/17 10: 28; Admin Dose 50 MG; Start 03/30/17 at 21:00 Nifedipine (Procardia Xl) 60 mg DAILY PO Last administered on 04/05/17 08:16; Admin Dose 60 MG; Start 03/31/17 at 09:00 Ondansetron HCl (Zofran Inj) 4 mg Q6H PRN IV NAUSEA AND/OR VOMITING; Start at 15:30 Acetaminophen (Tylenol Tab) 650 mg Q6H PRN PO PAIN LEVEL 1-3 OR FEVER; Start 03/30/17 at 15:30 Diagnostic Test (Pha) (Accu-Chek) 1 ea 02 XX Last administered on 04/09/17 02: 11; Admin Dose 1 EA; Start 03/31/17 at 02:00 Miscellaneous Information 1 ea NOTE XX ; Start 03/30/17 at 15:30 Glucose (Glutose) 15 gm Q15M PRN PO DECREASED GLUCOSE; Start 03/30/17 at 15:30 Glucose (Glutose) 22.5 gm Q15M PRN PO DECREASED GLUCOSE; Start 03/30/17 at 15: 30 Dextrose (D50w Syringe) 25 ml Q15M PRN IV DECREASED GLUCOSE; Start 03/30/17 at 15:30 Dextrose (D50w Syringe) 50 ml Q15M PRN IV DECREASED GLUCOSE; Start 03/30/17 at 15:30 Glucagon (Glucagen) 1 mg Q15M PRN IM DECREASED GLUCOSE; Start 03/30/17 at 15: 30 Glucose (Glutose) 15 gm Q15M PRN BUCCAL DECREASED GLUCOSE; Start 03/30/17 at 15:30 Guaifenesin/ Codeine Phosphate (Robitussin Ac Liquid Cup) 5 ml Q4H PRN PO cough ; Start 03/30/17 at 19:30 Lidocaine (Lmx 4% Plus) 1 applic PRN PRN TOP Prior to HD cannulation Last administered on 03/31/17 11:23; Admin Dose 1 APPLIC; Start 03/30/17 at 21:00 Pantoprazole (Protonix Tab) 40 mg DAILY@06 PO Last administered on 04/11/17 04 :35; Admin Dose 40 MG; Start 04/01/17 at 06:00 Heparin Sodium (Porcine) (Heparin (5000 Units/0.5 ml)) 5,000 unit BID SC Last administered on 04/11/17 09:41; Admin Dose 5,000 UNIT; Start 04/01/17 at 21:00 Senna/Docusate Sodium (Senokot-S) 1 tab DAILY PO Last administered on 09:38; Admin Dose 1 TAB; Start 04/03/17 at 12:00 Mineral Oil (Fleet Mineral Oil Enema) 133 ml DAILY PRN [place] constipation Last administered on 04/05/17 16:41; Admin Dose 133 ML; Start 04/03/17 at 12:00 Insulin Glargine (Lantus) 16 unit QHS SC Last administered on 04/10/17 21:13; Admin Dose 16 UNIT; Start 04/09/17 at 21:00 Miscellaneous Information 1 ea NOTE XX ; Start 04/09/17 at 14:00 Glucagon (Glucagen) 1 mg Q15M PRN IM DECREASED GLUCOSE; Start 04/09/17 at 14:00 Morphine Sulfate (morphine) 2 mg Q2H PRN IV PAIN LEVEL 4-7 Last administered on 04/10/17 18:47; Admin Dose 2 MG; Start 04/09/17 at 15:00 Morphine Sulfate (morphine) 4 mg Q4H PRN IV MODERATE PAIN LEVEL 4-6 Last administered on 04/10/17 20:35; Admin Dose 4 MG; Start 04/10/17 at 20:30 Acetaminophen/ Hydrocodone Bitart ([place] (10/325)) 1 tab Q4H PRN PO PAIN Last administered on 04/11/17 04:36; Admin Dose 1 TAB; Start 04/10/17 at 20:30 Amiodarone HCl (Cordarone) 100 mg DAILY PO Last administered on 04/11/17 12:00 ; Admin Dose 100 MG; Start 04/11/17 at 09:00 Apixaban (Eliquis) 2.5 mg BID PO ; Start 04/11/17 at 21:00 Clopidogrel Bisulfate (plaVIX) 75 mg DAILY PO ; Start 04/11/17 at 15:00 KIYA ENNIS Apr 11, 2017 15:02
[2017-04-11] MEDS: CLOPIDOGREL 75 MG TAB PO SCH (16:36)
--- NOTE | 2017-04-11 17:07 | CONS ---
Date/Time of Note Date/Time of Note DATE: 04/11/17 TIME: 17:06 Consult Date/Type/Reason Admit Date/Time Mar 30, 2017 at 15:04 Initial Consult Date 03/30/17 Type of Consultation: Pulm Subjective No events. Objective Vital Signs Date Time Temp Pulse Resp B/P Pulse Ox O2 Delivery O2 Flow Rate FiO2 04/11/17 16:14 130 04/11/17 15:28 98.0 20 114/55 100 04/11/17 13:13 2.0 04/11/17 13:11 Nasal Cannula 04/11/17 09:04 98 Intake and Output 04/10/17 04/10/17 04/11/17 15:00 23:00 07:00 Intake Total 300 ml 150 ml 100 ml Output Total 40 ml 70 ml Balance 300 ml 110 ml 30 ml Exam HEENT: Neck supple; no JVD; no LAD CVS: RRR, S1 and S2 CHEST: Decreased breath sounds on R ABD: Soft, NT, + BS EXT: No c/c/e Results/Medications Result Diagram: 04/11/1728 04/11/17 0728 Results 24 hrs Laboratory Tests Test 04/10/17 18:38 04/10/17 21:07 04/11/17 07:28 04/11/17 08:50 Bedside Glucose 215 167 224 H White Blood Count 7.5 # Red Blood Count 3.18 L Hemoglobin 8.2 L Hematocrit 26.9 L Mean Corpuscular Volume 84.6 Mean Corpuscular Hemoglobin 25.8 L Mean Corpuscular Hemoglobin Concent 30.5 L Red Cell Distribution Width 14.0 Platelet Count 218 # Mean Platelet Volume 10.9 H Neutrophils % 76.1 Lymphocytes % 13.6 L Monocytes % 7.2 Eosinophils % 1.6 Basophils % 0.4 Nucleated Red Blood Cells % 0.0 Neutrophils # 5.7 Lymphocytes # 1.0 Monocytes # 0.5 Eosinophils # 0.1 Basophils # 0.0 Nucleated Red Blood Cells # 0.0 Sodium Level 137 Potassium Level 4.1 Chloride Level 96 L Carbon Dioxide Level 30 Anion Gap 15 Blood Urea Nitrogen 37 #H Creatinine 5.86 H Glucose Level 239 H Calcium Level 8.8 Phosphorus Level 5.4 #H Magnesium Level 2.2 Test 04/11/17 12:54 Bedside Glucose 166 Medications Current Medications Atorvastatin Calcium (Lipitor) 80 mg QHS PO Last administered on 04/10/17 21: 20; Admin Dose 80 MG; Start 03/30/17 at 21:00 Bisacodyl (Dulcolax Supp) 10 mg Q24H PRN [place] CONSTIPATION Last administered on 04/01/17 15:16; Admin Dose 10 MG; Start 03/30/17 at 14:30 Lisinopril (Zestril) 2.5 mg BID PO Last administered on 04/08/17 21:49; Admin Dose 2.5 MG; Start 03/30/17 at 21:00 Metoprolol Tartrate (Lopressor) 50 mg BID PO Last administered on 04/11/17 10: 28; Admin Dose 50 MG; Start 03/30/17 at 21:00 Nifedipine (Procardia Xl) 60 mg DAILY PO Last administered on 04/05/17 08:16; Admin Dose 60 MG; Start 03/31/17 at 09:00 Ondansetron HCl (Zofran Inj) 4 mg Q6H PRN IV NAUSEA AND/OR VOMITING; Start at 15:30 Acetaminophen (Tylenol Tab) 650 mg Q6H PRN PO PAIN LEVEL 1-3 OR FEVER; Start 03/30/17 at 15:30 Diagnostic Test (Pha) (Accu-Chek) 1 ea 02 XX Last administered on 04/09/17 02: 11; Admin Dose 1 EA; Start 03/31/17 at 02:00 Miscellaneous Information 1 ea NOTE XX ; Start 03/30/17 at 15:30 Glucose (Glutose) 15 gm Q15M PRN PO DECREASED GLUCOSE; Start 03/30/17 at 15:30 Glucose (Glutose) 22.5 gm Q15M PRN PO DECREASED GLUCOSE; Start 03/30/17 at 15: 30 Dextrose (D50w Syringe) 25 ml Q15M PRN IV DECREASED GLUCOSE; Start 03/30/17 at 15:30 Dextrose (D50w Syringe) 50 ml Q15M PRN IV DECREASED GLUCOSE; Start 03/30/17 at 15:30 Glucagon (Glucagen) 1 mg Q15M PRN IM DECREASED GLUCOSE; Start 03/30/17 at 15: 30 Glucose (Glutose) 15 gm Q15M PRN BUCCAL DECREASED GLUCOSE; Start 03/30/17 at 15:30 Guaifenesin/ Codeine Phosphate (Robitussin Ac Liquid Cup) 5 ml Q4H PRN PO cough ; Start 03/30/17 at 19:30 Lidocaine (Lmx 4% Plus) 1 applic PRN PRN TOP Prior to HD cannulation Last administered on 03/31/17 11:23; Admin Dose 1 APPLIC; Start 03/30/17 at 21:00 Pantoprazole (Protonix Tab) 40 mg DAILY@06 PO Last administered on 04/11/17 04 :35; Admin Dose 40 MG; Start 04/01/17 at 06:00 Heparin Sodium (Porcine) (Heparin (5000 Units/0.5 ml)) 5,000 unit BID SC Last administered on 04/11/17 09:41; Admin Dose 5,000 UNIT; Start 04/01/17 at 21:00 Senna/Docusate Sodium (Senokot-S) 1 tab DAILY PO Last administered on 09:38; Admin Dose 1 TAB; Start 04/03/17 at 12:00 Mineral Oil (Fleet Mineral Oil Enema) 133 ml DAILY PRN [place] constipation Last administered on 04/05/17 16:41; Admin Dose 133 ML; Start 04/03/17 at 12:00 Insulin Glargine (Lantus) 16 unit QHS SC Last administered on 04/10/17 21:13; Admin Dose 16 UNIT; Start 04/09/17 at 21:00 Miscellaneous Information 1 ea NOTE XX ; Start 04/09/17 at 14:00 Glucagon (Glucagen) 1 mg Q15M PRN IM DECREASED GLUCOSE; Start 04/09/17 at 14:00 Morphine Sulfate (morphine) 2 mg Q2H PRN IV PAIN LEVEL 4-7 Last administered on 04/10/17 18:47; Admin Dose 2 MG; Start 04/09/17 at 15:00 Morphine Sulfate (morphine) 4 mg Q4H PRN IV MODERATE PAIN LEVEL 4-6 Last administered on 04/10/17 20:35; Admin Dose 4 MG; Start 04/10/17 at 20:30 Acetaminophen/ Hydrocodone Bitart ([place] (10/325)) 1 tab Q4H PRN PO PAIN Last administered on 04/11/17 04:36; Admin Dose 1 TAB; Start 04/10/17 at 20:30 Amiodarone HCl (Cordarone) 100 mg DAILY PO Last administered on 04/11/17 12:00 ; Admin Dose 100 MG; Start 04/11/17 at 09:00 Apixaban (Eliquis) 2.5 mg BID PO ; Start 04/11/17 at 21:00 Clopidogrel Bisulfate (plaVIX) 75 mg DAILY PO Last administered on 04/11/17 16 :36; Admin Dose 75 MG; Start 04/11/17 at 15:00 Assessment/Plan Additional Assessment/Plan IMP: 1. Massive right lymphocytic/neutrophilic-predominant exudative effusion--s/p VATS 2. ESRD on HD RECS: 1. F/U pleural fluid studies and pleural bx 2. CT management as per [facility] BIBI SALEH MD Apr 11, 2017 17:07
[2017-04-11] MEDS: ATORVASTATIN 80 MG TAB PO SCH (21:50)
[2017-04-11] MEDS: APIXABAN 5 MG TABLET PO SCH (21:50)
[2017-04-11] MEDS: INSULIN GLARGINE [LANtus] 3 ML PEN SC SCH (22:05)
[2017-04-12] VITALS (22 sets, daily range): BP systolic 85–144; BP diastolic 35–69; PULSE 73–130; RESP 18–20
[2017-04-12] MEDS: ACCU-CHEK XX SCH (02:36)
[2017-04-12] MEDS: PANTOPRAZOLE (EC) 40 MG TAB PO SCH (06:04)
[2017-04-12 06:13] LABS: BASOPHILS % 0.4 % (0.0-2.0); EOSINOPHILS # 0.2 10^3/ul (0.0-0.5); HEMATOCRIT 28.9 % (42.0-52.0); HEMOGLOBIN 8.8 g/dl (14.0-18.0); LYMPHOCYTES # 1.5 10^3/ul (0.8-2.9); MEAN CORPUSCULAR HEMOGLOBIN 25.7 pg (29.0-33.0); MEAN CORPUSCULAR HGB CONC 30.4 g/dl (32.0-37.0); MEAN CORPUSCULAR VOLUME 84.3 fl (82.0-101.0); MEAN PLATELET VOLUME 10.5 fl (7.4-10.4); MONOCYTE # 0.7 10^3/ul (0.3-0.9); MONOCYTES % 8.3 % (0.0-11.0); NEUTROPHIL # 6.1 10^3/ul (1.6-7.5); NEUTROPHILS % 70.8 % (39.0-77.0); PLATELET COUNT 256 10^3/UL (140-415); RED BLOOD COUNT 3.43 10^6/ul (4.70-6.10); RED CELL DISTRIBUTION WIDTH 13.5 % (11.5-14.5); WHITE BLOOD COUNT 8.6 10^3/ul (4.8-10.8)
[2017-04-12 06:40] LABS: CALCIUM 8.9 mg/dl (8.4-10.2); CREATININE 7.59 mg/dl (0.61-1.24); MAGNESIUM 2.4 mg/dl (1.7-2.5); PHOSPHORUS 6.6 mg/dl (2.5-4.9); POTASSIUM 4.7 mmol/L (3.5-5.1)
[2017-04-12] MEDS: INSULIN ASPART [NOVOLOG] 3 ML PEN SC SCH ×7 (07:55→20:31)
[2017-04-12] MEDS: ALBUTEROL 0.083% (NEB) 2.5 MG/3 ML AMP HHN SCH ×4 (08:30→20:09)
[2017-04-12] MEDS: APIXABAN 5 MG TABLET PO SCH ×2 (08:44→20:28)
[2017-04-12] MEDS: LISINOPRIL 5 MG TAB PO SCH ×2 (08:45→20:28)
[2017-04-12] MEDS: SEVELAMER CARBONATE 0.8 GM PKT PO SCH ×3 (08:46→17:34)
[2017-04-12] MEDS: CLOPIDOGREL 75 MG TAB PO SCH (08:46)
[2017-04-12] MEDS: NIFEdipine (XL) 60 MG TAB PO SCH (08:46)
[2017-04-12] MEDS: SENNA/DOCUSATE NA (8.6MG/50MG) TAB PO SCH (08:46)
[2017-04-12] MEDS: AMIODARONE 200 MG TAB PO SCH (08:48)
[2017-04-12] MEDS: METOPROLOL 50 MG TAB PO SCH ×2 (08:51→20:28)
[2017-04-12] MEDS: HEPARIN 5,000 UNIT/0.5 ML VIAL SC SCH ×2 (08:59→20:43)
[2017-04-12] MEDS: morphine 2 MG INJ IV PRN ×3 (12:22→21:47)
--- NOTE | 2017-04-12 12:34 | PN ---
Date/Time of Note Date/Time of Note DATE: 04/12/17 TIME: 12:33 Assessment/Plan Lines/Catheters IV Catheter Type (from Nrsg): Peripheral IV Yañez in Place (from Nrsg): No Assessment/Plan Chief Complaint/Hosp Course IMPRESSION: Right-sided pleural effusion which appears to be loculated. RECOMMENDATIONS: SP video-assisted thoracic surgery and decortication. CXR 1. Interval placement of right chest tube with significant improvement of the right hemithorax with a residual small right pleural effusion and right lung consolidation consistent with atelectasis and/or pneumonia. 2. Cardiomegaly without congestive heart failure. 3. No pneumothorax. CT [address] sxn Problems: Subjective 24 Hr Interval Summary Constitutional: improved Pain Control: mild Exam/Review of Systems Vital Signs Vitals Vital Signs Date Time Temp Pulse Resp B/P Pulse Ox O2 Delivery O2 Flow Rate FiO2 04/12/17 12:23 85 04/12/17 12:01 20 98 Nasal Cannula 2.0 04/12/17 11:30 98.6 101/43 04/11/17 21:12 28 Intake and Output 04/11/17 04/11/17 04/12/17 14:59 22:59 06:59 Intake Total 550 ml Output Total 70 ml 20 ml Balance -70 ml 530 ml Exam ENMT: mucosa pink and moist, nl external ears & nose, nl lips & teeth, nl nasal mucosa & septum Neck: non-tender, supple Respiratory: clear to auscultation, normal air movement Cardiovascular: nl pulses, regular rate and rhythm Results Result Diagram: 04/12/17 0546 04/12/17 0546 SHAYLA YAÑEZ MD Apr 12, 2017 12:34
--- NOTE | 2017-04-12 12:45 | PN ---
Date/Time of Note Date/Time of Note DATE: 04/12/17 TIME: 12:43 Assessment/Plan VTE Prophylaxis VTE Prophylaxis Intervention: SCD's Lines/Catheters IV Catheter Type (from Nrs): Peripheral IV Urinary Cath still in place: No Assessment/Plan Chief Complaint/Hosp Course s: 12.4 no acute changes, but patient's son refusing surgery due to HD 12.5 no acute complaints 12.6 no acute complaints, awaiting surgery 12.7 patient surgery today 12.8 patient doing well in the ICU today, no acute complaints 12.9 downgraded, patient doing well 12.10 doing well, no acute complaints except for occasional chest tube pain o: Physical exam General: Patient is laying in bed and answers questions appropriately Mentation: Patient is alert and oriented 4, Head: Normocephalic atraumatic Eyes: EOMI, pupils reactive to light Neck: Supple, nontender, midline Respiratory: coarse to auscultation bilaterally Cardiovascular: regular rate, no obvious murmurs Gastrointestinal: non-tender to palpation, bowel sounds heard. Neurological: Moves all extremities spontaneously Skin: No new skin lesions Assessment/Plan Acute hypoxic respiratory failure secondary to pleural effusion in right lung, s /p VATS .11.17 - chest tube still in - no respiratory distress, resolved Large Right pleural effusion s/p thoracentesis 03/30 - VATS done .11.17 - s/p chest tube placement per CT surgery Acute on chronic CHF - Last ECHO 10/2016 showed EF 65% with stage 1 diastolic dysfunction - Monitor I/O and daily weights - CXR shows cardiomegaly - Cardiology recs appreciated ESRD on HD - patient on scheduled - Nephrology consultation appreciated Hypertensive urgency - BP controlled on home medications DM, type 2 - Will increase lantus dosing as needed - ISS and accuchecks - A1c 6.9 Heart block/bradycardia with PPM - cardiology on board CAD s/p stent 10/2016 - continue on home medications - restarted plavix with CT surgery ok Atrial fibrillation - on BB, restarted eliquis with CT surgery ok - rate controlled Oliguria - on HD Constipation - given Senna S and suppository. Will try mineral oil enema Disposition - pending CT surgery recs on chest tube, still in - dispo when able Problems: Exam/Review of Systems Vital Signs Vitals Vital Signs Date Time Temp Pulse Resp B/P Pulse Ox O2 Delivery O2 Flow Rate FiO2 04/12/17 12:23 85 04/12/17 12:01 20 98 Nasal Cannula 2.0 04/12/17 11:30 98.6 101/43 04/11/17 21:12 28 Intake and Output 04/11/17 04/11/17 04/12/17 14:59 22:59 06:59 Intake Total 550 ml Output Total 70 ml 20 ml Balance -70 ml 530 ml Results Result Diagram: 04/12/17 0546 04/12/17 0546 Results 24 hrs Laboratory Tests Test 04/11/17 12:54 04/11/17 18:04 04/11/17 21:33 04/12/17 02:27 Bedside Glucose 166 170 125 159 Test 04/12/17 05:46 04/12/17 08:20 04/12/17 11:42 White Blood Count 8.6 Red Blood Count 3.43 L Hemoglobin 8.8 L Hematocrit 28.9 L Mean Corpuscular Volume 84.3 Mean Corpuscular Hemoglobin 25.7 L Mean Corpuscular Hemoglobin Concent 30.4 L Red Cell Distribution Width 13.5 Platelet Count 256 Mean Platelet Volume 10.5 H Neutrophils % 70.8 Lymphocytes % 17.0 Monocytes % 8.3 Eosinophils % 2.0 Basophils % 0.4 Nucleated Red Blood Cells % 0.0 Neutrophils # 6.1 Lymphocytes # 1.5 Monocytes # 0.7 Eosinophils # 0.2 Basophils # 0.0 Nucleated Red Blood Cells # 0.0 Sodium Level 136 Potassium Level 4.7 Chloride Level 94 L Carbon Dioxide Level 31 Anion Gap 16 Blood Urea Nitrogen 56 H Creatinine 7.59 H Glucose Level 133 # Calcium Level 8.9 Phosphorus Level 6.6 H Magnesium Level 2.4 Bedside Glucose 107 101 Medications Medications Current Medications Atorvastatin Calcium (Lipitor) 80 mg QHS PO Last administered on 04/11/17 21: 50; Admin Dose 80 MG; Start 03/30/17 at 21:00 Bisacodyl (Dulcolax Supp) 10 mg Q24H PRN [place] CONSTIPATION Last administered on 04/01/17 15:16; Admin Dose 10 MG; Start 03/30/17 at 14:30 Lisinopril (Zestril) 2.5 mg BID PO Last administered on 04/08/17 21:49; Admin Dose 2.5 MG; Start 03/30/17 at 21:00 Metoprolol Tartrate (Lopressor) 50 mg BID PO Last administered on 04/11/17 21: 46; Admin Dose 50 MG; Start 03/30/17 at 21:00 Nifedipine (Procardia Xl) 60 mg DAILY PO Last administered on 04/05/17 08:16; Admin Dose 60 MG; Start 03/31/17 at 09:00 Ondansetron HCl (Zofran Inj) 4 mg Q6H PRN IV NAUSEA AND/OR VOMITING; Start at 15:30 Acetaminophen (Tylenol Tab) 650 mg Q6H PRN PO PAIN LEVEL 1-3 OR FEVER; Start 03/30/17 at 15:30 Diagnostic Test (Pha) (Accu-Chek) 1 ea 02 XX Last administered on 04/12/17 02 :36; Admin Dose 1 EA; Start 03/31/17 at 02:00 Miscellaneous Information 1 ea NOTE XX ; Start 03/30/17 at 15:30 Glucose (Glutose) 15 gm Q15M PRN PO DECREASED GLUCOSE; Start 03/30/17 at 15:30 Glucose (Glutose) 22.5 gm Q15M PRN PO DECREASED GLUCOSE; Start 03/30/17 at 15: 30 Dextrose (D50w Syringe) 25 ml Q15M PRN IV DECREASED GLUCOSE; Start 03/30/17 at 15:30 Dextrose (D50w Syringe) 50 ml Q15M PRN IV DECREASED GLUCOSE; Start 03/30/17 at 15:30 Glucagon (Glucagen) 1 mg Q15M PRN IM DECREASED GLUCOSE; Start 03/30/17 at 15: 30 Glucose (Glutose) 15 gm Q15M PRN BUCCAL DECREASED GLUCOSE; Start 03/30/17 at 15:30 Guaifenesin/ Codeine Phosphate (Robitussin Ac Liquid Cup) 5 ml Q4H PRN PO cough ; Start 03/30/17 at 19:30 Lidocaine (Lmx 4% Plus) 1 applic PRN PRN TOP Prior to HD cannulation Last administered on 03/31/17 11:23; Admin Dose 1 APPLIC; Start 03/30/17 at 21:00 Pantoprazole (Protonix Tab) 40 mg DAILY@06 PO Last administered on 04/12/17 06:04; Admin Dose 40 MG; Start 04/01/17 at 06:00 Heparin Sodium (Porcine) (Heparin (5000 Units/0.5 ml)) 5,000 unit BID SC Last administered on 04/12/17 08:59; Admin Dose 5,000 UNIT; Start 04/01/17 at 21: 00 Senna/Docusate Sodium (Senokot-S) 1 tab DAILY PO Last administered on 08:46; Admin Dose 1 TAB; Start 04/03/17 at 12:00 Mineral Oil (Fleet Mineral Oil Enema) 133 ml DAILY PRN [place] constipation Last administered on 04/05/17 16:41; Admin Dose 133 ML; Start 04/03/17 at 12:00 Insulin Glargine (Lantus) 16 unit QHS SC Last administered on 04/11/17 22:05; Admin Dose 16 UNIT; Start 04/09/17 at 21:00 Miscellaneous Information 1 ea NOTE XX ; Start 04/09/17 at 14:00 Glucagon (Glucagen) 1 mg Q15M PRN IM DECREASED GLUCOSE; Start 04/09/17 at 14:00 Morphine Sulfate (morphine) 2 mg Q2H PRN IV PAIN LEVEL 4-7 Last administered on 04/12/17 12:22; Admin Dose 2 MG; Start 04/09/17 at 15:00 Morphine Sulfate (morphine) 4 mg Q4H PRN IV MODERATE PAIN LEVEL 4-6 Last administered on 04/10/17 20:35; Admin Dose 4 MG; Start 04/10/17 at 20:30 Acetaminophen/ Hydrocodone Bitart ([place] (10/325)) 1 tab Q4H PRN PO PAIN Last administered on 04/11/17 22:17; Admin Dose 1 TAB; Start 04/10/17 at 20:30 Amiodarone HCl (Cordarone) 100 mg DAILY PO Last administered on 04/12/17 08: 48; Admin Dose 100 MG; Start 04/11/17 at 09:00 Apixaban (Eliquis) 2.5 mg BID PO Last administered on 04/12/17 08:44; Admin Dose 2.5 MG; Start 04/11/17 at 21:00 Clopidogrel Bisulfate (plaVIX) 75 mg DAILY PO Last administered on 12/10/17at 08:46; Admin Dose 75 MG; Start 04/11/17 at 15:00 ANANTH PATEL Apr 12, 2017 12:44
--- NOTE | 2017-04-12 13:28 | CONS ---
Date/Time of Note Date/Time of Note DATE: 04/12/17 TIME: 13:24 Assessment/Plan Assessment/Plan Additional Assessment/Plan 1. Acute hypoxic resp failure due to acute fluid overload and Pleural effusion 2. ESRD on HD -TTS schedule 3. Right hemithorax multiple loculated right pleural effusion s/p Thoracentesis 250 cc drained- pt has multiple pockets of loculated effusion 4. h/o CAD s/p CABG 5. H/o recent DC and s/p stenting by 6. HTN 7. HL 8. Anemia Plan: -s/p VATS with decortication, + right chest tub in place, -plan for next HD today then pt will be on his regular schedule, , , Thursday will follow up James Huerta Consultation Date/Type/Reason Admit Date/Time Mar 30, 2017 at 15:04 Initial Consult Date 03/30/17 Type of Consultation: Pulm 24 HR Interval Summary Free Text/Dictation - SR -80 today, SR overnight per staff - afebrile. feels better today - plan for HD today - no new events reported overnight - dw staff Constitutional: requiring O2 Detailed Summary Respiratory: no complaints Cardiovascular: no complaints Gastrointestinal: no complaints Genitourinary: no complaints Musculoskeletal: no complaints Exam/Review of Systems Vital Signs Vitals Vital Signs Date Time Temp Pulse Resp B/P Pulse Ox O2 Delivery O2 Flow Rate FiO2 04/12/17 13:14 2.0 04/12/17 12:23 85 04/12/17 12:01 20 98 Nasal Cannula 04/12/17 11:30 98.6 101/43 04/12/17 08:30 28 Intake and Output 04/11/17 04/11/17 04/12/17 15:00 23:00 07:00 Intake Total 550 ml Output Total 70 ml 20 ml Balance -70 ml 530 ml Exam Constitutional: alert Respiratory: clear to auscultation, diminished breath sounds Cardiovascular: edema, nl pulses Gastrointestinal: non-tender Extremities: normal pulses Neurological: nl mental status, nl speech Results Result Diagram: 04/12/17 0546 04/12/17 0546 Results 24 hrs Laboratory Tests Test 04/11/17 18:04 04/11/17 21:33 04/12/17 02:27 04/12/17 05:46 Bedside Glucose 170 125 159 White Blood Count 8.6 Red Blood Count 3.43 L Hemoglobin 8.8 L Hematocrit 28.9 L Mean Corpuscular Volume 84.3 Mean Corpuscular Hemoglobin 25.7 L Mean Corpuscular Hemoglobin Concent 30.4 L Red Cell Distribution Width 13.5 Platelet Count 256 Mean Platelet Volume 10.5 H Neutrophils % 70.8 Lymphocytes % 17.0 Monocytes % 8.3 Eosinophils % 2.0 Basophils % 0.4 Nucleated Red Blood Cells % 0.0 Neutrophils # 6.1 Lymphocytes # 1.5 Monocytes # 0.7 Eosinophils # 0.2 Basophils # 0.0 Nucleated Red Blood Cells # 0.0 Sodium Level 136 Potassium Level 4.7 Chloride Level 94 L Carbon Dioxide Level 31 Anion Gap 16 Blood Urea Nitrogen 56 H Creatinine 7.59 H Glucose Level 133 # Calcium Level 8.9 Phosphorus Level 6.6 H Magnesium Level 2.4 Test 04/12/17 08:20 04/12/17 11:42 Bedside Glucose 107 101 Medications Medications Current Medications Atorvastatin Calcium (Lipitor) 80 mg QHS PO Last administered on 04/11/17 21: 50; Admin Dose 80 MG; Start 03/30/17 at 21:00 Bisacodyl (Dulcolax Supp) 10 mg Q24H PRN [place] CONSTIPATION Last administered on 04/01/17 15:16; Admin Dose 10 MG; Start 03/30/17 at 14:30 Lisinopril (Zestril) 2.5 mg BID PO Last administered on 04/08/17 21:49; Admin Dose 2.5 MG; Start 03/30/17 at 21:00 Metoprolol Tartrate (Lopressor) 50 mg BID PO Last administered on 04/11/17 21: 46; Admin Dose 50 MG; Start 03/30/17 at 21:00 Nifedipine (Procardia Xl) 60 mg DAILY PO Last administered on 04/05/17 08:16; Admin Dose 60 MG; Start 03/31/17 at 09:00 Ondansetron HCl (Zofran Inj) 4 mg Q6H PRN IV NAUSEA AND/OR VOMITING; Start at 15:30 Acetaminophen (Tylenol Tab) 650 mg Q6H PRN PO PAIN LEVEL 1-3 OR FEVER; Start 03/30/17 at 15:30 Diagnostic Test (Pha) (Accu-Chek) 1 ea 02 XX Last administered on 04/12/17 02 :36; Admin Dose 1 EA; Start 03/31/17 at 02:00 Miscellaneous Information 1 ea NOTE XX ; Start 03/30/17 at 15:30 Glucose (Glutose) 15 gm Q15M PRN PO DECREASED GLUCOSE; Start 03/30/17 at 15:30 Glucose (Glutose) 22.5 gm Q15M PRN PO DECREASED GLUCOSE; Start 03/30/17 at 15: 30 Dextrose (D50w Syringe) 25 ml Q15M PRN IV DECREASED GLUCOSE; Start 03/30/17 at 15:30 Dextrose (D50w Syringe) 50 ml Q15M PRN IV DECREASED GLUCOSE; Start 03/30/17 at 15:30 Glucagon (Glucagen) 1 mg Q15M PRN IM DECREASED GLUCOSE; Start 03/30/17 at 15: 30 Glucose (Glutose) 15 gm Q15M PRN BUCCAL DECREASED GLUCOSE; Start 03/30/17 at 15:30 Guaifenesin/ Codeine Phosphate (Robitussin Ac Liquid Cup) 5 ml Q4H PRN PO cough ; Start 03/30/17 at 19:30 Lidocaine (Lmx 4% Plus) 1 applic PRN PRN TOP Prior to HD cannulation Last administered on 03/31/17 11:23; Admin Dose 1 APPLIC; Start 03/30/17 at 21:00 Pantoprazole (Protonix Tab) 40 mg DAILY@06 PO Last administered on 04/12/17 06:04; Admin Dose 40 MG; Start 04/01/17 at 06:00 Heparin Sodium (Porcine) (Heparin (5000 Units/0.5 ml)) 5,000 unit BID SC Last administered on 04/12/17 08:59; Admin Dose 5,000 UNIT; Start 04/01/17 at 21: 00 Senna/Docusate Sodium (Senokot-S) 1 tab DAILY PO Last administered on 08:46; Admin Dose 1 TAB; Start 04/03/17 at 12:00 Mineral Oil (Fleet Mineral Oil Enema) 133 ml DAILY PRN [place] constipation Last administered on 04/05/17 16:41; Admin Dose 133 ML; Start 04/03/17 at 12:00 Insulin Glargine (Lantus) 16 unit QHS SC Last administered on 04/11/17 22:05; Admin Dose 16 UNIT; Start 04/09/17 at 21:00 Miscellaneous Information 1 ea NOTE XX ; Start 04/09/17 at 14:00 Glucagon (Glucagen) 1 mg Q15M PRN IM DECREASED GLUCOSE; Start 04/09/17 at 14:00 Morphine Sulfate (morphine) 2 mg Q2H PRN IV PAIN LEVEL 4-7 Last administered on 04/12/17 12:22; Admin Dose 2 MG; Start 04/09/17 at 15:00 Morphine Sulfate (morphine) 4 mg Q4H PRN IV MODERATE PAIN LEVEL 4-6 Last administered on 04/10/17 20:35; Admin Dose 4 MG; Start 04/10/17 at 20:30 Acetaminophen/ Hydrocodone Bitart ([place] (10/325)) 1 tab Q4H PRN PO PAIN Last administered on 04/11/17 22:17; Admin Dose 1 TAB; Start 04/10/17 at 20:30 Amiodarone HCl (Cordarone) 100 mg DAILY PO Last administered on 04/12/17 08: 48; Admin Dose 100 MG; Start 04/11/17 at 09:00 Apixaban (Eliquis) 2.5 mg BID PO Last administered on 04/12/17 08:44; Admin Dose 2.5 MG; Start 04/11/17 at 21:00 Clopidogrel Bisulfate (plaVIX) 75 mg DAILY PO Last administered on 04/12/17 08:46; Admin Dose 75 MG; Start 04/11/17 at 15:00 KIYA ENNIS Apr 12, 2017 13:28 KIYA ENNIS Apr 12, 2017 13:28
--- NOTE | 2017-04-12 17:37 | CONS ---
Date/Time of Note Date/Time of Note DATE: 04/12/17 TIME: 17:34 Consult Date/Type/Reason Admit Date/Time Mar 30, 2017 at 15:04 Initial Consult Date 03/30/17 Type of Consultation: Pulm Subjective No events. Objective Vital Signs Date Time Temp Pulse Resp B/P Pulse Ox O2 Delivery O2 Flow Rate FiO2 04/12/17 16:43 88 20 95 Nasal Cannula 2.0 04/12/17 15:38 98.3 104/37 04/12/17 08:30 28 Intake and Output 04/11/17 04/11/17 04/12/17 15:00 23:00 07:00 Intake Total 550 ml Output Total 70 ml 20 ml Balance -70 ml 530 ml Exam HEENT: Neck supple; no JVD; no LAD CVS: RRR, S1 and S2 CHEST: Decreased breath sounds on R ABD: Soft, NT, + BS EXT: No c/c/e Results/Medications Result Diagram: 04/12/17 0546 04/12/17 0546 Results 24 hrs Laboratory Tests Test 04/11/17 18:04 04/11/17 21:33 04/12/17 02:27 04/12/17 05:46 Bedside Glucose 170 125 159 White Blood Count 8.6 Red Blood Count 3.43 L Hemoglobin 8.8 L Hematocrit 28.9 L Mean Corpuscular Volume 84.3 Mean Corpuscular Hemoglobin 25.7 L Mean Corpuscular Hemoglobin Concent 30.4 L Red Cell Distribution Width 13.5 Platelet Count 256 Mean Platelet Volume 10.5 H Neutrophils % 70.8 Lymphocytes % 17.0 Monocytes % 8.3 Eosinophils % 2.0 Basophils % 0.4 Nucleated Red Blood Cells % 0.0 Neutrophils # 6.1 Lymphocytes # 1.5 Monocytes # 0.7 Eosinophils # 0.2 Basophils # 0.0 Nucleated Red Blood Cells # 0.0 Sodium Level 136 Potassium Level 4.7 Chloride Level 94 L Carbon Dioxide Level 31 Anion Gap 16 Blood Urea Nitrogen 56 H Creatinine 7.59 H Glucose Level 133 # Calcium Level 8.9 Phosphorus Level 6.6 H Magnesium Level 2.4 Test 04/12/17 08:20 04/12/17 11:42 Bedside Glucose 107 101 Medications Current Medications Atorvastatin Calcium (Lipitor) 80 mg QHS PO Last administered on 04/11/17t 21: 50; Admin Dose 80 MG; Start 03/30/17 at 21:00 Bisacodyl (Dulcolax Supp) 10 mg Q24H PRN [place] CONSTIPATION Last administered on 04/01/17 15:16; Admin Dose 10 MG; Start 03/30/17 at 14:30 Lisinopril (Zestril) 2.5 mg BID PO Last administered on 04/08/17 21:49; Admin Dose 2.5 MG; Start 03/30/17 at 21:00 Metoprolol Tartrate (Lopressor) 50 mg BID PO Last administered on 04/11/17 21: 46; Admin Dose 50 MG; Start 03/30/17 at 21:00 Nifedipine (Procardia Xl) 60 mg DAILY PO Last administered on 04/05/17 08:16; Admin Dose 60 MG; Start 03/31/17 at 09:00 Ondansetron HCl (Zofran Inj) 4 mg Q6H PRN IV NAUSEA AND/OR VOMITING; Start at 15:30 Acetaminophen (Tylenol Tab) 650 mg Q6H PRN PO PAIN LEVEL 1-3 OR FEVER; Start 03/30/17 at 15:30 Diagnostic Test (Pha) (Accu-Chek) 1 ea 02 XX Last administered on 04/12/17 02 :36; Admin Dose 1 EA; Start 03/31/17 at 02:00 Glucose (Glutose) 15 gm Q15M PRN PO DECREASED GLUCOSE; Start 03/30/17 at 15:30 Glucose (Glutose) 22.5 gm Q15M PRN PO DECREASED GLUCOSE; Start 03/30/17 at 15: 30 Dextrose (D50w Syringe) 25 ml Q15M PRN IV DECREASED GLUCOSE; Start 03/30/17 at 15:30 Dextrose (D50w Syringe) 50 ml Q15M PRN IV DECREASED GLUCOSE; Start 03/30/17 at 15:30 Glucagon (Glucagen) 1 mg Q15M PRN IM DECREASED GLUCOSE; Start 03/30/17 at 15: 30 Glucose (Glutose) 15 gm Q15M PRN BUCCAL DECREASED GLUCOSE; Start 03/30/17 at 15:30 Guaifenesin/ Codeine Phosphate (Robitussin Ac Liquid Cup) 5 ml Q4H PRN PO cough ; Start 03/30/17 at 19:30 Lidocaine (Lmx 4% Plus) 1 applic PRN PRN TOP Prior to HD cannulation Last administered on 03/31/17 11:23; Admin Dose 1 APPLIC; Start 03/30/17 at 21:00 Pantoprazole (Protonix Tab) 40 mg DAILY@06 PO Last administered on 04/12/17 06:04; Admin Dose 40 MG; Start 04/01/17 at 06:00 Heparin Sodium (Porcine) (Heparin (5000 Units/0.5 ml)) 5,000 unit BID SC Last administered on 04/12/17 08:59; Admin Dose 5,000 UNIT; Start 04/01/17 at 21: 00 Senna/Docusate Sodium (Senokot-S) 1 tab DAILY PO Last administered on 08:46; Admin Dose 1 TAB; Start 04/03/17 at 12:00 Mineral Oil (Fleet Mineral Oil Enema) 133 ml DAILY PRN [place] constipation Last administered on 04/05/17 16:41; Admin Dose 133 ML; Start 04/03/17 at 12:00 Insulin Glargine (Lantus) 16 unit QHS SC Last administered on 04/11/17 22:05; Admin Dose 16 UNIT; Start 04/09/17 at 21:00 Miscellaneous Information 1 ea NOTE XX ; Start 04/09/17 at 14:00 Glucagon (Glucagen) 1 mg Q15M PRN IM DECREASED GLUCOSE; Start 04/09/17 at 14:00 Morphine Sulfate (morphine) 2 mg Q2H PRN IV PAIN LEVEL 4-7 Last administered on 04/12/17 12:22; Admin Dose 2 MG; Start 04/09/17 at 15:00 Morphine Sulfate (morphine) 4 mg Q4H PRN IV MODERATE PAIN LEVEL 4-6 Last administered on 04/10/17 20:35; Admin Dose 4 MG; Start 04/10/17 at 20:30 Acetaminophen/ Hydrocodone Bitart ([place] ([address])) 1 tab Q4H PRN PO PAIN Last administered on 04/11/17 22:17; Admin Dose 1 TAB; Start 04/10/17 at 20:30 Amiodarone HCl (Cordarone) 100 mg DAILY PO Last administered on 04/12/17 08: 48; Admin Dose 100 MG; Start 12/9/17 at 09:00 Apixaban (Eliquis) 2.5 mg BID PO Last administered on 04/12/17 08:44; Admin Dose 2.5 MG; Start 04/11/17 at 21:00 Clopidogrel Bisulfate (plaVIX) 75 mg DAILY PO Last administered on 04/12/17 08:46; Admin Dose 75 MG; Start 04/11/17 at 15:00 Assessment/Plan Additional Assessment/Plan IMP: 1. Massive right lymphocytic/neutrophilic-predominant exudative effusion--s/p VATS 2. ESRD on HD RECS: 1. F/U pleural fluid studies and pleural bx 2. CT management as per CVS; maintains CT output. BIBI SALEH MD Apr 12, 2017 17:37
--- NOTE | 2017-04-12 17:50 | CONS ---
Date/Time of Note Date/Time of Note DATE: 04/12/17 TIME: 17:49 Consult Date/Type/Reason Admit Date/Time Mar 30, 2017 at 15:04 Initial Consult Date 03/30/17 Type of Consultation: Card Objective Vital Signs Date Time Temp Pulse Resp B/P Pulse Ox O2 Delivery O2 Flow Rate FiO2 04/12/17 16:43 88 20 95 Nasal Cannula 2.0 04/12/17 15:38 98.3 104/37 04/12/17 08:30 28 Intake and Output 04/11/17 04/11/17 04/12/17 15:00 23:00 07:00 Intake Total 550 ml Output Total 70 ml 20 ml Balance -70 ml 530 ml Results/Medications Result Diagram: 04/12/17 0546 04/12/17 0546 Results 24 hrs Laboratory Tests Test 04/11/17 18:04 04/11/17 21:33 04/12/17 02:27 04/12/17 05:46 Bedside Glucose 170 125 159 White Blood Count 8.6 Red Blood Count 3.43 L Hemoglobin 8.8 L Hematocrit 28.9 L Mean Corpuscular Volume 84.3 Mean Corpuscular Hemoglobin 25.7 L Mean Corpuscular Hemoglobin Concent 30.4 L Red Cell Distribution Width 13.5 Platelet Count 256 Mean Platelet Volume 10.5 H Neutrophils % 70.8 Lymphocytes % 17.0 Monocytes % 8.3 Eosinophils % 2.0 Basophils % 0.4 Nucleated Red Blood Cells % 0.0 Neutrophils # 6.1 Lymphocytes # 1.5 Monocytes # 0.7 Eosinophils # 0.2 Basophils # 0.0 Nucleated Red Blood Cells # 0.0 Sodium Level 136 Potassium Level 4.7 Chloride Level 94 L Carbon Dioxide Level 31 Anion Gap 16 Blood Urea Nitrogen 56 H Creatinine 7.59 H Glucose Level 133 # Calcium Level 8.9 Phosphorus Level 6.6 H Magnesium Level 2.4 Test 04/12/17 08:20 04/12/17 11:42 04/12/17 17:30 Bedside Glucose 107 101 148 Medications Current Medications Atorvastatin Calcium (Lipitor) 80 mg QHS PO Last administered on 04/11/17 21: 50; Admin Dose 80 MG; Start 03/30/17 at 21:00 Bisacodyl (Dulcolax Supp) 10 mg Q24H PRN [place] CONSTIPATION Last administered on 04/01/17 15:16; Admin Dose 10 MG; Start 03/30/17 at 14:30 Lisinopril (Zestril) 2.5 mg BID PO Last administered on 04/08/17 21:49; Admin Dose 2.5 MG; Start 03/30/17 at 21:00 Metoprolol Tartrate (Lopressor) 50 mg BID PO Last administered on 04/11/17 21: 46; Admin Dose 50 MG; Start 03/30/17 at 21:00 Nifedipine (Procardia Xl) 60 mg DAILY PO Last administered on 04/05/17 08:16; Admin Dose 60 MG; Start 03/31/17 at 09:00 Ondansetron HCl (Zofran Inj) 4 mg Q6H PRN IV NAUSEA AND/OR VOMITING; Start at 15:30 Acetaminophen (Tylenol Tab) 650 mg Q6H PRN PO PAIN LEVEL 1-3 OR FEVER; Start 03/30/17 at 15:30 Diagnostic Test (Pha) (Accu-Chek) 1 ea 02 XX Last administered on 04/12/17 02 :36; Admin Dose 1 EA; Start 03/31/17 at 02:00 Glucose (Glutose) 15 gm Q15M PRN PO DECREASED GLUCOSE; Start 03/30/17 at 15:30 Glucose (Glutose) 22.5 gm Q15M PRN PO DECREASED GLUCOSE; Start 03/30/17 at 15: 30 Dextrose (D50w Syringe) 25 ml Q15M PRN IV DECREASED GLUCOSE; Start 03/30/17 at 15:30 Dextrose (D50w Syringe) 50 ml Q15M PRN IV DECREASED GLUCOSE; Start 03/30/17 at 15:30 Glucagon (Glucagen) 1 mg Q15M PRN IM DECREASED GLUCOSE; Start 03/30/17 at 15: 30 Glucose (Glutose) 15 gm Q15M PRN BUCCAL DECREASED GLUCOSE; Start 03/30/17 at 15:30 Guaifenesin/ Codeine Phosphate (Robitussin Ac Liquid Cup) 5 ml Q4H PRN PO cough ; Start 03/30/17 at 19:30 Lidocaine (Lmx 4% Plus) 1 applic PRN PRN TOP Prior to HD cannulation Last administered on 03/31/17 11:23; Admin Dose 1 APPLIC; Start 03/30/17 at 21:00 Pantoprazole (Protonix Tab) 40 mg DAILY@06 PO Last administered on 04/12/17 06:04; Admin Dose 40 MG; Start 04/01/17 at 06:00 Heparin Sodium (Porcine) (Heparin (5000 Units/0.5 ml)) 5,000 unit BID SC Last administered on 04/12/17 08:59; Admin Dose 5,000 UNIT; Start 04/01/17 at 21: 00 Senna/Docusate Sodium (Senokot-S) 1 tab DAILY PO Last administered on 08:46; Admin Dose 1 TAB; Start 04/03/17 at 12:00 Mineral Oil (Fleet Mineral Oil Enema) 133 ml DAILY PRN [place] constipation Last administered on 04/05/17 16:41; Admin Dose 133 ML; Start 04/03/17 at 12:00 Insulin Glargine (Lantus) 16 unit QHS SC Last administered on 04/11/17 22:05; Admin Dose 16 UNIT; Start 04/09/17 at 21:00 Miscellaneous Information 1 ea NOTE XX ; Start 04/09/17 at 14:00 Glucagon (Glucagen) 1 mg Q15M PRN IM DECREASED GLUCOSE; Start 04/09/17 at 14:00 Morphine Sulfate (morphine) 2 mg Q2H PRN IV PAIN LEVEL 4-7 Last administered on 04/12/17 17:34; Admin Dose 2 MG; Start 04/09/17 at 15:00 Morphine Sulfate (morphine) 4 mg Q4H PRN IV MODERATE PAIN LEVEL 4-6 Last administered on 04/10/17 20:35; Admin Dose 4 MG; Start 04/10/17 at 20:30 Acetaminophen/ Hydrocodone Bitart ([place] (10/325)) 1 tab Q4H PRN PO PAIN Last administered on 04/11/17 22:17; Admin Dose 1 TAB; Start 04/10/17 at 20:30 Amiodarone HCl (Cordarone) 100 mg DAILY PO Last administered on 04/12/17 08: 48; Admin Dose 100 MG; Start 04/11/17 at 09:00 Apixaban (Eliquis) 2.5 mg BID PO Last administered on 04/12/17 08:44; Admin Dose 2.5 MG; Start 04/11/17 at 21:00 Clopidogrel Bisulfate (plaVIX) 75 mg DAILY PO Last administered on 04/12/17t 08:46; Admin Dose 75 MG; Start 04/11/17 at 15:00 Assessment/Plan Chief Complaint/Hosp Course Patient is know to me form out pt with history of RI with PCI of RCA, SSS s/p st sayra PPM implantation, HTN, ESRD on HD, Severe PAD and Venous disease, HLD who presented to ER with Severe SOB, found to have white out of his right lung, likely PNA, s/p thoracocentesis with 250cc fluid only. No WBC, NO fever, Less likely this is Infection at this extent, I would get Contrast CT with [place]. Problems: Additional Assessment/Plan On Plavix and Tasha Still has CP severe pain at site and taking morphine Plan per CT surgery when to remove Ctube Consider med mx. D/C plan as per primary and CXTS HUNTER BASSETT MD Apr 12, 2017 17:50
[2017-04-12] MEDS: ATORVASTATIN 80 MG TAB PO SCH (20:28)
[2017-04-12] MEDS: INSULIN GLARGINE [LANtus] 3 ML PEN SC SCH (20:40)
[2017-04-13] VITALS (20 sets, daily range): BP systolic 98–158; BP diastolic 47–71; PULSE 57–134; RESP 17–20
[2017-04-13] MEDS: ACCU-CHEK XX SCH (01:13)
[2017-04-13] MEDS: PANTOPRAZOLE (EC) 40 MG TAB PO SCH (05:23)
[2017-04-13 06:41] LABS: BASOPHILS % 0.5 % (0.0-2.0); EOSINOPHILS # 0.2 10^3/ul (0.0-0.5); EOSINOPHILS % 2.4 % (0.0-7.0); HEMATOCRIT 29.2 % (42.0-52.0); HEMOGLOBIN 8.8 g/dl (14.0-18.0); LYMPHOCYTES # 1.2 10^3/ul (0.8-2.9); LYMPHOCYTES % 15.8 % (15.0-51.0); MEAN CORPUSCULAR HEMOGLOBIN 25.6 pg (29.0-33.0); MEAN CORPUSCULAR HGB CONC 30.1 g/dl (32.0-37.0); MEAN CORPUSCULAR VOLUME 84.9 fl (82.0-101.0); MEAN PLATELET VOLUME 10.3 fl (7.4-10.4); MONOCYTE # 0.6 10^3/ul (0.3-0.9); MONOCYTES % 8.3 % (0.0-11.0); NEUTROPHIL # 5.4 10^3/ul (1.6-7.5); NEUTROPHILS % 71.3 % (39.0-77.0); PLATELET COUNT 273 10^3/UL (140-415); RED BLOOD COUNT 3.44 10^6/ul (4.70-6.10); RED CELL DISTRIBUTION WIDTH 13.6 % (11.5-14.5); WHITE BLOOD COUNT 7.6 10^3/ul (4.8-10.8)
[2017-04-13 07:06] LABS: CALCIUM 8.7 mg/dl (8.4-10.2); CREATININE 5.3 mg/dl (0.61-1.24); MAGNESIUM 2.2 mg/dl (1.7-2.5); PHOSPHORUS 4.6 mg/dl (2.5-4.9); POTASSIUM 4.1 mmol/L (3.5-5.1)
[2017-04-13] MEDS: INSULIN ASPART [NOVOLOG] 3 ML PEN SC SCH ×8 (08:32→20:27)
[2017-04-13] MEDS: AMIODARONE 200 MG TAB PO SCH (08:42)
[2017-04-13] MEDS: SEVELAMER CARBONATE 0.8 GM PKT PO SCH ×3 (08:42→17:42)
[2017-04-13] MEDS: SENNA/DOCUSATE NA (8.6MG/50MG) TAB PO SCH (08:42)
[2017-04-13] MEDS: CLOPIDOGREL 75 MG TAB PO SCH (08:42)
[2017-04-13] MEDS: APIXABAN 5 MG TABLET PO SCH ×2 (08:42→20:30)
[2017-04-13] MEDS: HEPARIN 5,000 UNIT/0.5 ML VIAL SC SCH ×2 (08:43→20:45)
[2017-04-13] MEDS: LISINOPRIL 5 MG TAB PO SCH ×2 (08:44→20:28)
[2017-04-13] MEDS: METOPROLOL 50 MG TAB PO SCH ×2 (08:44→20:29)
[2017-04-13] MEDS: NIFEdipine (XL) 60 MG TAB PO SCH (08:44)
[2017-04-13] MEDS: ALBUTEROL 0.083% (NEB) 2.5 MG/3 ML AMP HHN SCH ×4 (09:32→20:50)
[2017-04-13] MEDS: morphine 2 MG INJ IV PRN ×2 (11:07→22:25)
--- NOTE | 2017-04-13 11:23 | CONS ---
Date/Time of Note Date/Time of Note DATE: 04/13/17 TIME: 11:22 Consult Date/Type/Reason Admit Date/Time Mar 30, 2017 at 15:04 Initial Consult Date 03/30/17 Type of Consultation: Pulmonary Subjective Patient awake alert comfortable this morning. Having hemodialysis. Minimal drainage from chest tube. Objective Vital Signs Date Time Temp Pulse Resp B/P Pulse Ox O2 Delivery O2 Flow Rate FiO2 04/13/17 09:32 98 2.0 04/13/17 09:32 64 18 04/13/17 08:40 Nasal Cannula 04/13/17 07:23 98.6 157/67 04/12/17 08:30 28 Intake and Output 04/12/17 04/12/17 04/13/17 15:00 23:00 07:00 Intake Total 650 ml 100 ml Output Total 1510 ml 15 ml Balance -860 ml 85 ml Exam GENERAL: Well-nourished well-developed gentleman comfortable at rest no acute distress VITAL SIGNS: per chart NECK: Supple. No JVD or lymphadenopathy. CARDIAC EXAM: S1, S2. No added sounds or murmurs. CHEST: Diminished air entry both lung bases. ABDOMEN: Soft, nontender. No guarding or rebound. EXTREMITIES: No cyanosis, clubbing or edema. NEUROLOGIC: Generalized weakness. No focal deficits. Results/Medications Result Diagram: 04/13/1715 04/13/17 0615 Results 24 hrs Laboratory Tests Test 04/12/17 11:42 04/12/17 17:30 04/12/17 20:30 04/12/17 21:56 Bedside Glucose 101 148 124 125 Test 04/13/17 06:15 04/13/17 08:28 White Blood Count 7.6 Red Blood Count 3.44 L Hemoglobin 8.8 L Hematocrit 29.2 L Mean Corpuscular Volume 84.9 Mean Corpuscular Hemoglobin 25.6 L Mean Corpuscular Hemoglobin Concent 30.1 L Red Cell Distribution Width 13.6 Platelet Count 273 Mean Platelet Volume 10.3 Neutrophils % 71.3 Lymphocytes % 15.8 Monocytes % 8.3 Eosinophils % 2.4 Basophils % 0.5 Nucleated Red Blood Cells % 0.0 Neutrophils # 5.4 Lymphocytes # 1.2 Monocytes # 0.6 Eosinophils # 0.2 Basophils # 0.0 Nucleated Red Blood Cells # 0.0 Sodium Level 138 Potassium Level 4.1 Chloride Level 97 Carbon Dioxide Level 30 Anion Gap 15 Blood Urea Nitrogen 34 #H Creatinine 5.30 #H Glucose Level 185 Calcium Level 8.7 Phosphorus Level 4.6 # Magnesium Level 2.2 Bedside Glucose 192 Medications Current Medications Atorvastatin Calcium (Lipitor) 80 mg QHS PO Last administered on 04/12/17 20: 28; Admin Dose 80 MG; Start 03/30/17 at 21:00 Bisacodyl (Dulcolax Supp) 10 mg Q24H PRN [place] CONSTIPATION Last administered on 04/01/17 15:16; Admin Dose 10 MG; Start 03/30/17 at 14:30 Lisinopril (Zestril) 2.5 mg BID PO Last administered on 04/08/17 21:49; Admin Dose 2.5 MG; Start 03/30/17 at 21:00 Metoprolol Tartrate (Lopressor) 50 mg BID PO Last administered on 04/11/17 21: 46; Admin Dose 50 MG; Start 03/30/17 at 21:00 Nifedipine (Procardia Xl) 60 mg DAILY PO Last administered on 04/05/17 08:16; Admin Dose 60 MG; Start 03/31/17 at 09:00 Ondansetron HCl (Zofran Inj) 4 mg Q6H PRN IV NAUSEA AND/OR VOMITING; Start at 15:30 Acetaminophen (Tylenol Tab) 650 mg Q6H PRN PO PAIN LEVEL 1-3 OR FEVER; Start 03/30/17 at 15:30 Diagnostic Test (Pha) (Accu-Chek) 1 ea 02 XX Last administered on 04/12/17 02 :36; Admin Dose 1 EA; Start 03/31/17 at 02:00 Glucose (Glutose) 15 gm Q15M PRN PO DECREASED GLUCOSE; Start 03/30/17 at 15:30 Glucose (Glutose) 22.5 gm Q15M PRN PO DECREASED GLUCOSE; Start 03/30/17 at 15: 30 Dextrose (D50w Syringe) 25 ml Q15M PRN IV DECREASED GLUCOSE; Start 03/30/17 at 15:30 Dextrose (D50w Syringe) 50 ml Q15M PRN IV DECREASED GLUCOSE; Start 03/30/17 at 15:30 Glucagon (Glucagen) 1 mg Q15M PRN IM DECREASED GLUCOSE; Start 03/30/17 at 15: 30 Glucose (Glutose) 15 gm Q15M PRN BUCCAL DECREASED GLUCOSE; Start 03/30/17 at 15:30 Guaifenesin/ Codeine Phosphate (Robitussin Ac Liquid Cup) 5 ml Q4H PRN PO cough ; Start 03/30/17 at 19:30 Lidocaine (Lmx 4% Plus) 1 applic PRN PRN TOP Prior to HD cannulation Last administered on 03/31/17 11:23; Admin Dose 1 APPLIC; Start 03/30/17 at 21:00 Pantoprazole (Protonix Tab) 40 mg DAILY@06 PO Last administered on 04/13/17 05:23; Admin Dose 40 MG; Start 04/01/17 at 06:00 Heparin Sodium (Porcine) (Heparin (5000 Units/0.5 ml)) 5,000 unit BID SC Last administered on 04/13/17 08:43; Admin Dose 5,000 UNIT; Start 04/01/17 at 21: 00 Senna/Docusate Sodium (Senokot-S) 1 tab DAILY PO Last administered on 08:42; Admin Dose 1 TAB; Start 04/03/17 at 12:00 Mineral Oil (Fleet Mineral Oil Enema) 133 ml DAILY PRN [place] constipation Last administered on 04/05/17 16:41; Admin Dose 133 ML; Start 04/03/17 at 12:00 Insulin Glargine (Lantus) 16 unit QHS SC Last administered on 04/12/17 20:40 ; Admin Dose 16 UNIT; Start 04/09/17 at 21:00 Miscellaneous Information 1 ea NOTE XX ; Start 04/09/17 at 14:00 Glucagon (Glucagen) 1 mg Q15M PRN IM DECREASED GLUCOSE; Start 04/09/17 at 14:00 Morphine Sulfate (morphine) 2 mg Q2H PRN IV PAIN LEVEL 4-7 Last administered on 04/13/17 11:07; Admin Dose 2 MG; Start 04/09/17 at 15:00 Morphine Sulfate (morphine) 4 mg Q4H PRN IV MODERATE PAIN LEVEL 4-6 Last administered on 04/10/17 20:35; Admin Dose 4 MG; Start 04/10/17 at 20:30 Acetaminophen/ Hydrocodone Bitart ([place] (10)) 1 tab Q4H PRN PO PAIN Last administered on 04/11/17 22:17; Admin Dose 1 TAB; Start 04/10/17 at 20:30 Amiodarone HCl (Cordarone) 100 mg DAILY PO Last administered on 04/13/17 08: 42; Admin Dose 100 MG; Start 04/11/17 at 09:00 Apixaban (Eliquis) 2.5 mg BID PO Last administered on 04/13/17 08:42; Admin Dose 2.5 MG; Start 04/11/17 at 21:00 Clopidogrel Bisulfate (plaVIX) 75 mg DAILY PO Last administered on 04/13/17 08:42; Admin Dose 75 MG; Start 04/11/17 at 15:00 Assessment/Plan Chief Complaint/Hosp Course IMP: 1. Massive right lymphocytic/neutrophilic-predominant exudative effusion--s/p VATS 2. ESRD on HD RECS: 1. F/U pleural fluid studies and pleural bx 2. CT management as per CVS; chest tube to waterseal. Repeat chest x-ray in a.m. Problems: KI WHITAKER MD, [facility] Apr 13, 2017 11:23
--- NOTE | 2017-04-13 16:03 | PN ---
Date/Time of Note Date/Time of Note DATE: 04/13/17 TIME: 16:03 Assessment/Plan VTE Prophylaxis VTE Prophylaxis Intervention: SCD's Lines/Catheters IV Catheter Type (from Nrsg): Peripheral IV Urinary Cath still in place: No Assessment/Plan Assessment/Plan 1. Acute hypoxic respiratory failure secondary to pleural effusion in right lung, s/p VATS 12.11.17 - Chest tube placed on waterseal and will repeat CXR in am. - No acute respiratory issues at this time. - Pulmonology on board and recommendations appreciated - CT surgery on board as well and appreciate consultation 2. Large Right pleural effusion s/p thoracentesis 03/30 - VATS done 04.09.17 - s/p chest tube placement per CT surgery 3. Acute on chronic CHF - Last ECHO 10/2016 showed EF 65% with stage 1 diastolic dysfunction - Monitor I/O and daily weights - CXR shows cardiomegaly - Cardiology recs appreciated and will continue current management 4. ESRD on HD - patient on outpatient // schedule. Received HD this am - Nephrology consultation appreciated 5. Hypertensive urgency - BP controlled on home medications 6. DM, type 2 - Continue current management - ISS and accuchecks - A1c 6.9 7. Heart block/bradycardia with PPM - cardiology on board 8. CAD s/p stent 10/2016 - continue on home medications - Back on Plavix and Eliquis 9. Atrial fibrillation - on BB and eliquis - rate controlled 10. Constipation - bowel regime 11. Disposition - chest tube to water seal with repeat CXR in am Subjective 24 Hr Interval Summary Free Text/Dictation Patient doing well and no issues during hemodialysis this am. Spoke with son over the phone and updated him on current plan of care. No acute overnight events. Exam/Review of Systems Vital Signs Vitals Vital Signs Date Time Temp Pulse Resp B/P Pulse Ox O2 Delivery O2 Flow Rate FiO2 04/13/17 13:04 99 2.0 04/13/17 13:04 120 20 Nasal Cannula 04/13/17 11:27 98.2 141/65 04/12/17 08:30 28 Intake and Output 04/12/17 04/12/17 04/13/17 14:59 22:59 06:59 Intake Total 650 ml 100 ml Output Total 1510 ml 15 ml Balance -860 ml 85 ml Exam General: Patient is laying in bed and answers questions appropriately. awake and in no acute distress Mentation: Patient is alert and oriented 4, Head: Normocephalic atraumatic Eyes: EOMI, pupils reactive to light Neck: Supple, nontender, midline Respiratory: coarse to auscultation bilaterally. no wheezing Cardiovascular: regular rate, no obvious murmurs Gastrointestinal: non-tender to palpation, bowel sounds heard. Neurological: Moves all extremities spontaneously Skin: No new skin lesions Results Result Diagram: 04/13/1715 04/13/1715 Results 24 hrs Laboratory Tests Test 04/12/17 17:30 04/12/17 20:30 04/12/17 21:56 04/13/17 06:15 Bedside Glucose 148 124 125 White Blood Count 7.6 Red Blood Count 3.44 L Hemoglobin 8.8 L Hematocrit 29.2 L Mean Corpuscular Volume 84.9 Mean Corpuscular Hemoglobin 25.6 L Mean Corpuscular Hemoglobin Concent 30.1 L Red Cell Distribution Width 13.6 Platelet Count 273 Mean Platelet Volume 10.3 Neutrophils % 71.3 Lymphocytes % 15.8 Monocytes % 8.3 Eosinophils % 2.4 Basophils % 0.5 Nucleated Red Blood Cells % 0.0 Neutrophils # 5.4 Lymphocytes # 1.2 Monocytes # 0.6 Eosinophils # 0.2 Basophils # 0.0 Nucleated Red Blood Cells # 0.0 Sodium Level 138 Potassium Level 4.1 Chloride Level 97 Carbon Dioxide Level 30 Anion Gap 15 Blood Urea Nitrogen 34 #H Creatinine 5.30 #H Glucose Level 185 Calcium Level 8.7 Phosphorus Level 4.6 # Magnesium Level 2.2 Test 04/13/17 08:28 04/13/17 12:19 Bedside Glucose 192 146 Medications Medications Current Medications Atorvastatin Calcium (Lipitor) 80 mg QHS PO Last administered on 04/12/17 20: 28; Admin Dose 80 MG; Start 03/30/17 at 21:00 Bisacodyl (Dulcolax Supp) 10 mg Q24H PRN [place] CONSTIPATION Last administered on 04/01/17 15:16; Admin Dose 10 MG; Start 03/30/17 at 14:30 Lisinopril (Zestril) 2.5 mg BID PO Last administered on 04/08/17 21:49; Admin Dose 2.5 MG; Start 03/30/17 at 21:00 Metoprolol Tartrate (Lopressor) 50 mg BID PO Last administered on 04/11/17 21: 46; Admin Dose 50 MG; Start 03/30/17 at 21:00 Nifedipine (Procardia Xl) 60 mg DAILY PO Last administered on 04/05/17 08:16; Admin Dose 60 MG; Start 03/31/17 at 09:00 Ondansetron HCl (Zofran Inj) 4 mg Q6H PRN IV NAUSEA AND/OR VOMITING; Start at 15:30 Acetaminophen (Tylenol Tab) 650 mg Q6H PRN PO PAIN LEVEL 1-3 OR FEVER; Start 03/30/17 at 15:30 Diagnostic Test (Pha) (Accu-Chek) 1 ea 02 XX Last administered on 04/12/17 02 :36; Admin Dose 1 EA; Start 03/31/17 at 02:00 Glucose (Glutose) 15 gm Q15M PRN PO DECREASED GLUCOSE; Start 03/30/17 at 15:30 Glucose (Glutose) 22.5 gm Q15M PRN PO DECREASED GLUCOSE; Start 03/30/17 at 15: 30 Dextrose (D50w Syringe) 25 ml Q15M PRN IV DECREASED GLUCOSE; Start 03/30/17 at 15:30 Dextrose (D50w Syringe) 50 ml Q15M PRN IV DECREASED GLUCOSE; Start 03/30/17 at 15:30 Glucagon (Glucagen) 1 mg Q15M PRN IM DECREASED GLUCOSE; Start 03/30/17 at 15: 30 Glucose (Glutose) 15 gm Q15M PRN BUCC[place] DECREASED GLUCOSE; Start 03/30/17 at 15:30 Guaifenesin/ Codeine Phosphate (Robitussin Ac Liquid Cup) 5 ml Q4H PRN PO cough ; Start 03/30/17 at 19:30 Lidocaine (Lmx 4% Plus) 1 applic PRN PRN TOP Prior to HD cannulation Last administered on 03/31/17 11:23; Admin Dose 1 APPLIC; Start 03/30/17 at 21:00 Pantoprazole (Protonix Tab) 40 mg DAILY@06 PO Last administered on 04/13/17 05:23; Admin Dose 40 MG; Start 04/01/17 at 06:00 Heparin Sodium (Porcine) (Heparin (5000 Units/0.5 ml)) 5,000 unit BID SC Last administered on 04/13/17 08:43; Admin Dose 5,000 UNIT; Start 04/01/17 at 21: 00 Senna/Docusate Sodium (Senokot-S) 1 tab DAILY PO Last administered on 08:42; Admin Dose 1 TAB; Start 04/03/17 at 12:00 Mineral Oil (Fleet Mineral Oil Enema) 133 ml DAILY PRN [place] constipation Last administered on 04/05/17 16:41; Admin Dose 133 ML; Start 04/03/17 at 12:00 Insulin Glargine (Lantus) 16 unit QHS SC Last administered on 04/12/17 20:40 ; Admin Dose 16 UNIT; Start 04/09/17 at 21:00 Miscellaneous Information 1 ea NOTE XX ; Start 04/09/17 at 14:00 Glucagon (Glucagen) 1 mg Q15M PRN IM DECREASED GLUCOSE; Start 04/09/17 at 14:00 Morphine Sulfate (morphine) 2 mg Q2H PRN IV PAIN LEVEL 4-7 Last administered on 04/13/17 11:07; Admin Dose 2 MG; Start 04/09/17 at 15:00 Morphine Sulfate (morphine) 4 mg Q4H PRN IV MODERATE PAIN LEVEL 4-6 Last administered on 04/10/17 20:35; Admin Dose 4 MG; Start 04/10/17 at 20:30 Acetaminophen/ Hydrocodone Bitart ([place] (10/325)) 1 tab Q4H PRN PO PAIN Last administered on 04/11/17 22:17; Admin Dose 1 TAB; Start 04/10/17 at 20:30 Amiodarone HCl (Cordarone) 100 mg DAILY PO Last administered on 04/13/17 08: 42; Admin Dose 100 MG; Start 04/11/17 at 09:00 Apixaban (Eliquis) 2.5 mg BID PO Last administered on 04/13/17 08:42; Admin Dose 2.5 MG; Start 04/11/17 at 21:00 Clopidogrel Bisulfate (plaVIX) 75 mg DAILY PO Last administered on 04/13/17 08:42; Admin Dose 75 MG; Start 04/11/17 at 15:00 JAE RAHMAN MD Apr 13, 2017 16:03
--- NOTE | 2017-04-13 17:27 | PN ---
Date/Time of Note Date/Time of Note DATE: 04/13/17 TIME: 17:27 Assessment/Plan Lines/Catheters IV Catheter Type (from Nrsg): Peripheral IV Yañez in Place (from Nrsg): No Assessment/Plan Chief Complaint/Hosp Course IMPRESSION: Right-sided pleural effusion which appears to be loculated. RECOMMENDATIONS: SP video-assisted thoracic surgery and decortication. CXR 1. Interval placement of right chest tube with significant improvement of the right hemithorax with a residual small right pleural effusion and right lung consolidation consistent with atelectasis and/or pneumonia. 2. Cardiomegaly without congestive heart failure. 3. No pneumothorax. CT [address] on water seal Problems: Subjective 24 Hr Interval Summary Constitutional: improved Pain Control: mild Exam/Review of Systems Vital Signs Vitals Vital Signs Date Time Temp Pulse Resp B/P Pulse Ox O2 Delivery O2 Flow Rate FiO2 04/13/17 16:38 100 2.0 04/13/17 16:38 92 18 Nasal Cannula 04/13/17 16:21 98.0 158/70 04/12/17 08:30 28 Intake and Output 04/12/17 04/12/17 04/13/17 14:59 22:59 06:59 Intake Total 650 ml 100 ml Output Total 1510 ml 15 ml Balance -860 ml 85 ml Exam ENMT: mucosa pink and moist, nl external ears & nose, nl lips & teeth, nl nasal mucosa & septum Neck: non-tender, supple Respiratory: clear to auscultation, normal air movement Cardiovascular: nl pulses, regular rate and rhythm Gastrointestinal: nl liver, spleen, non-tender, soft Results Result Diagram: 04/13/1715 04/13/17 0615 SHAYLA YAÑEZ MD Apr 13, 2017 17:27
--- NOTE | 2017-04-13 17:28 | CONS ---
Date/Time of Note Date/Time of Note DATE: 04/13/17 TIME: 17:27 Assessment/Plan Assessment/Plan Additional Assessment/Plan 1. Acute hypoxic resp failure due to acute fluid overload and Pleural effusion 2. ESRD on HD -TTS schedule 3. Right hemithorax multiple loculated right pleural effusion s/p Thoracentesis 250 cc drained- pt has multiple pockets of loculated effusion 4. h/o CAD s/p CABG 5/ H/o recent MO and s/p stenting by 6/ HTN 7/ HL Plan: -s/p VATS with decortication, + right chest tub in place, - s/p HD 1 liter removed, - will order HD for tomorrow then pt will be on his regular schedule, , , thursday will follow up Consultation Date/Type/Reason Admit Date/Time Mar 30, 2017 at 15:04 Initial Consult Date 03/30/17 Type of Consultation: NEPHROLOGY 24 HR Interval Summary Free Text/Dictation s/p HD today 1 L removed, BP stable Exam/Review of Systems Vital Signs Vitals Vital Signs Date Time Temp Pulse Resp B/P Pulse Ox O2 Delivery O2 Flow Rate FiO2 04/13/17 16:38 100 2.0 04/13/17 16:38 92 18 Nasal Cannula 04/13/17 16:21 98.0 158/70 04/12/17 08:30 28 Intake and Output 04/12/17 04/12/17 04/13/17 15:00 23:00 07:00 Intake Total 650 ml 100 ml Output Total 1510 ml 15 ml Balance -860 ml 85 ml Results Result Diagram: 04/13/17 0615 04/13/17 0615 Results 24 hrs Laboratory Tests Test 04/12/17 17:30 04/12/17 20:30 04/12/17 21:56 04/13/17 06:15 Bedside Glucose 148 124 125 White Blood Count 7.6 Red Blood Count 3.44 L Hemoglobin 8.8 L Hematocrit 29.2 L Mean Corpuscular Volume 84.9 Mean Corpuscular Hemoglobin 25.6 L Mean Corpuscular Hemoglobin Concent 30.1 L Red Cell Distribution Width 13.6 Platelet Count 273 Mean Platelet Volume 10.3 Neutrophils % 71.3 Lymphocytes % 15.8 Monocytes % 8.3 Eosinophils % 2.4 Basophils % 0.5 Nucleated Red Blood Cells % 0.0 Neutrophils # 5.4 Lymphocytes # 1.2 Monocytes # 0.6 Eosinophils # 0.2 Basophils # 0.0 Nucleated Red Blood Cells # 0.0 Sodium Level 138 Potassium Level 4.1 Chloride Level 97 Carbon Dioxide Level 30 Anion Gap 15 Blood Urea Nitrogen 34 #H Creatinine 5.30 #H Glucose Level 185 Calcium Level 8.7 Phosphorus Level 4.6 # Magnesium Level 2.2 Test 04/13/17 08:28 04/13/17 12:19 Bedside Glucose 192 146 Medications Medications Current Medications Atorvastatin Calcium (Lipitor) 80 mg QHS PO Last administered on 04/12/17 20: 28; Admin Dose 80 MG; Start 03/30/17 at 21:00 Bisacodyl (Dulcolax Supp) 10 mg Q24H PRN [place] CONSTIPATION Last administered on 04/01/17 15:16; Admin Dose 10 MG; Start 03/30/17 at 14:30 Lisinopril (Zestril) 2.5 mg BID PO Last administered on 04/08/17 21:49; Admin Dose 2.5 MG; Start 03/30/17 at 21:00 Metoprolol Tartrate (Lopressor) 50 mg BID PO Last administered on 04/11/17 21: 46; Admin Dose 50 MG; Start 03/30/17 at 21:00 Nifedipine (Procardia Xl) 60 mg DAILY PO Last administered on 04/05/17 08:16; Admin Dose 60 MG; Start 03/31/17 at 09:00 Ondansetron HCl (Zofran Inj) 4 mg Q6H PRN IV NAUSEA AND/OR VOMITING; Start at 15:30 Acetaminophen (Tylenol Tab) 650 mg Q6H PRN PO PAIN LEVEL 1-3 OR FEVER; Start 03/30/17 at 15:30 Diagnostic Test (Pha) (Accu-Chek) 1 ea 02 XX Last administered on 04/12/17 02 :36; Admin Dose 1 EA; Start 03/31/17 at 02:00 Glucose (Glutose) 15 gm Q15M PRN PO DECREASED GLUCOSE; Start 03/30/17 at 15:30 Glucose (Glutose) 22.5 gm Q15M PRN PO DECREASED GLUCOSE; Start 03/30/17 at 15: 30 Dextrose (D50w Syringe) 25 ml Q15M PRN IV DECREASED GLUCOSE; Start 03/30/17 at 15:30 Dextrose (D50w Syringe) 50 ml Q15M PRN IV DECREASED GLUCOSE; Start 03/30/17 at 15:30 Glucagon (Glucagen) 1 mg Q15M PRN IM DECREASED GLUCOSE; Start 03/30/17 at 15: 30 Glucose (Glutose) 15 gm Q15M PRN BUCCAL DECREASED GLUCOSE; Start 03/30/17 at 15:30 Guaifenesin/ Codeine Phosphate (Robitussin Ac Liquid Cup) 5 ml Q4H PRN PO cough ; Start 03/30/17 at 19:30 Lidocaine (Lmx 4% Plus) 1 applic PRN PRN TOP Prior to HD cannulation Last administered on 03/31/17 11:23; Admin Dose 1 APPLIC; Start 03/30/17 at 21:00 Pantoprazole (Protonix Tab) 40 mg DAILY@06 PO Last administered on 04/13/17 05:23; Admin Dose 40 MG; Start 04/01/17 at 06:00 Heparin Sodium (Porcine) (Heparin (5000 Units/0.5 ml)) 5,000 unit BID SC Last administered on 04/13/17 08:43; Admin Dose 5,000 UNIT; Start 04/01/17 at 21: 00 Senna/Docusate Sodium (Senokot-S) 1 tab DAILY PO Last administered on 08:42; Admin Dose 1 TAB; Start 04/03/17 at 12:00 Mineral Oil (Fleet Mineral Oil Enema) 133 ml DAILY PRN [place] constipation Last administered on 04/05/17 16:41; Admin Dose 133 ML; Start 04/03/17 at 12:00 Insulin Glargine (Lantus) 16 unit QHS SC Last administered on 04/12/17 20:40 ; Admin Dose 16 UNIT; Start 04/09/17 at 21:00 Miscellaneous Information 1 ea NOTE XX ; Start 04/09/17 at 14:00 Glucagon (Glucagen) 1 mg Q15M PRN IM DECREASED GLUCOSE; Start 04/09/17 at 14:00 Morphine Sulfate (morphine) 2 mg Q2H PRN IV PAIN LEVEL 4-7 Last administered on 04/13/17 11:07; Admin Dose 2 MG; Start 04/09/17 at 15:00 Morphine Sulfate (morphine) 4 mg Q4H PRN IV MODERATE PAIN LEVEL 4-6 Last administered on 04/10/17 20:35; Admin Dose 4 MG; Start 04/10/17 at 20:30 Acetaminophen/ Hydrocodone Bitart ([place] (10/325)) 1 tab Q4H PRN PO PAIN Last administered on 04/11/17 22:17; Admin Dose 1 TAB; Start 04/10/17 at 20:30 Amiodarone HCl (Cordarone) 100 mg DAILY PO Last administered on 04/13/17 08: 42; Admin Dose 100 MG; Start 04/11/17 at 09:00 Apixaban (Eliquis) 2.5 mg BID PO Last administered on 04/13/17 08:42; Admin Dose 2.5 MG; Start 04/11/17 at 21:00 Clopidogrel Bisulfate (plaVIX) 75 mg DAILY PO Last administered on 04/13/17 08:42; Admin Dose 75 MG; Start 04/11/17 at 15:00 RAYNE FITCH MD Apr 13, 2017 17:28
--- NOTE | 2017-04-13 19:23 | CONS ---
Date/Time of Note Date/Time of Note DATE: 04/13/17 TIME: 19:22 Consult Date/Type/Reason Admit Date/Time Mar 30, 2017 at 15:04 Initial Consult Date 03/30/17 Type of Consultation: Card Objective Vital Signs Date Time Temp Pulse Resp B/P Pulse Ox O2 Delivery O2 Flow Rate FiO2 04/13/17 16:38 100 2.0 04/13/17 16:38 92 18 Nasal Cannula 04/13/17 16:21 98.0 158/70 04/12/17 08:30 28 Intake and Output 04/12/17 04/12/17 04/13/17 15:00 23:00 07:00 Intake Total 650 ml 100 ml Output Total 1510 ml 15 ml Balance -860 ml 85 ml Results/Medications Result Diagram: 04/13/1715 04/13/17 0615 Results 24 hrs Laboratory Tests Test 04/12/17 20:30 04/12/17 21:56 04/13/17 06:15 04/13/17 08:28 Bedside Glucose 124 125 192 White Blood Count 7.6 Red Blood Count 3.44 L Hemoglobin 8.8 L Hematocrit 29.2 L Mean Corpuscular Volume 84.9 Mean Corpuscular Hemoglobin 25.6 L Mean Corpuscular Hemoglobin Concent 30.1 L Red Cell Distribution Width 13.6 Platelet Count 273 Mean Platelet Volume 10.3 Neutrophils % 71.3 Lymphocytes % 15.8 Monocytes % 8.3 Eosinophils % 2.4 Basophils % 0.5 Nucleated Red Blood Cells % 0.0 Neutrophils # 5.4 Lymphocytes # 1.2 Monocytes # 0.6 Eosinophils # 0.2 Basophils # 0.0 Nucleated Red Blood Cells # 0.0 Sodium Level 138 Potassium Level 4.1 Chloride Level 97 Carbon Dioxide Level 30 Anion Gap 15 Blood Urea Nitrogen 34 #H Creatinine 5.30 #H Glucose Level 185 Calcium Level 8.7 Phosphorus Level 4.6 # Magnesium Level 2.2 Test 04/13/17 12:19 04/13/17 17:40 Bedside Glucose 146 172 Medications Current Medications Atorvastatin Calcium (Lipitor) 80 mg QHS PO Last administered on 04/12/17 20: 28; Admin Dose 80 MG; Start 03/30/17 at 21:00 Bisacodyl (Dulcolax Supp) 10 mg Q24H PRN [place] CONSTIPATION Last administered on 04/01/17 15:16; Admin Dose 10 MG; Start 03/30/17 at 14:30 Lisinopril (Zestril) 2.5 mg BID PO Last administered on 04/08/17 21:49; Admin Dose 2.5 MG; Start 03/30/17 at 21:00 Metoprolol Tartrate (Lopressor) 50 mg BID PO Last administered on 04/11/17 21: 46; Admin Dose 50 MG; Start 03/30/17 at 21:00 Nifedipine (Procardia Xl) 60 mg DAILY PO Last administered on 04/05/17 08:16; Admin Dose 60 MG; Start 03/31/17 at 09:00 Ondansetron HCl (Zofran Inj) 4 mg Q6H PRN IV NAUSEA AND/OR VOMITING; Start at 15:30 Acetaminophen (Tylenol Tab) 650 mg Q6H PRN PO PAIN LEVEL 1-3 OR FEVER; Start 03/30/17 at 15:30 Diagnostic Test (Pha) (Accu-Chek) 1 ea 02 XX Last administered on 04/12/17 02 :36; Admin Dose 1 EA; Start 03/31/17 at 02:00 Glucose (Glutose) 15 gm Q15M PRN PO DECREASED GLUCOSE; Start 03/30/17 at 15:30 Glucose (Glutose) 22.5 gm Q15M PRN PO DECREASED GLUCOSE; Start 03/30/17 at 15: 30 Dextrose (D50w Syringe) 25 ml Q15M PRN IV DECREASED GLUCOSE; Start 03/30/17 at 15:30 Dextrose (D50w Syringe) 50 ml Q15M PRN IV DECREASED GLUCOSE; Start 03/30/17 at 15:30 Glucagon (Glucagen) 1 mg Q15M PRN IM DECREASED GLUCOSE; Start 03/30/17 at 15: 30 Glucose (Glutose) 15 gm Q15M PRN BUCCAL DECREASED GLUCOSE; Start 03/30/17 at 15:30 Guaifenesin/ Codeine Phosphate (Robitussin Ac Liquid Cup) 5 ml Q4H PRN PO cough ; Start 03/30/17 at 19:30 Lidocaine (Lmx 4% Plus) 1 applic PRN PRN TOP Prior to HD cannulation Last administered on 03/31/17 11:23; Admin Dose 1 APPLIC; Start 03/30/17 at 21:00 Pantoprazole (Protonix Tab) 40 mg DAILY@06 PO Last administered on 04/13/17 05:23; Admin Dose 40 MG; Start 04/01/17 at 06:00 Heparin Sodium (Porcine) (Heparin (5000 Units/0.5 ml)) 5,000 unit BID SC Last administered on 04/13/17 08:43; Admin Dose 5,000 UNIT; Start 04/01/17 at 21: 00 Senna/Docusate Sodium (Senokot-S) 1 tab DAILY PO Last administered on 08:42; Admin Dose 1 TAB; Start 04/03/17 at 12:00 Mineral Oil (Fleet Mineral Oil Enema) 133 ml DAILY PRN [place] constipation Last administered on 04/05/17 16:41; Admin Dose 133 ML; Start 04/03/17 at 12:00 Insulin Glargine (Lantus) 16 unit QHS SC Last administered on 04/12/17 20:40 ; Admin Dose 16 UNIT; Start 04/09/17 at 21:00 Miscellaneous Information 1 ea NOTE XX ; Start 04/09/17 at 14:00 Glucagon (Glucagen) 1 mg Q15M PRN IM DECREASED GLUCOSE; Start 04/09/17 at 14:00 Morphine Sulfate (morphine) 2 mg Q2H PRN IV PAIN LEVEL 4-7 Last administered on 04/13/17 11:07; Admin Dose 2 MG; Start 04/09/17 at 15:00 Morphine Sulfate (morphine) 4 mg Q4H PRN IV MODERATE PAIN LEVEL 4-6 Last administered on 04/10/17 20:35; Admin Dose 4 MG; Start 04/10/17 at 20:30 Acetaminophen/ Hydrocodone Bitart ([place] (10/325)) 1 tab Q4H PRN PO PAIN Last administered on 04/11/17 22:17; Admin Dose 1 TAB; Start 04/10/17 at 20:30 Amiodarone HCl (Cordarone) 100 mg DAILY PO Last administered on 04/13/17 08: 42; Admin Dose 100 MG; Start 04/11/17 at 09:00 Apixaban (Eliquis) 2.5 mg BID PO Last administered on 04/13/17 08:42; Admin Dose 2.5 MG; Start 04/11/17 at 21:00 Clopidogrel Bisulfate (plaVIX) 75 mg DAILY PO Last administered on 04/13/17t 08:42; Admin Dose 75 MG; Start 04/11/17 at 15:00 Assessment/Plan Chief Complaint/Hosp Course Patient is know to me form out pt with history of [place] with PCI of RCA, SSS s/p st sayra PPM implantation, HTN, ESRD on HD, Severe PAD and Venous disease, HLD who presented to ER with Severe SOB, found to have white out of his right lung, likely PNA, s/p thoracocentesis with 250cc fluid only. No WBC, NO fever, Less likely this is Infection at this extent, I would get Contrast CT with [place]. Problems: Additional Assessment/Plan continue current [id number] plan per CTS Med mx d/c planning as per surgeryC HUNTER BASSETT MD Apr 13, 2017 19:23
[2017-04-13] MEDS: ATORVASTATIN 80 MG TAB PO SCH (20:29)
[2017-04-13] MEDS: INSULIN GLARGINE [LANtus] 3 ML PEN SC SCH (20:45)
[2017-04-13] MEDS: HYDROCODONE/APAP (10/325) TAB PO PRN (21:13)
[2017-04-14] VITALS (17 sets, daily range): BP systolic 100–142; BP diastolic 49–64; PULSE 72–89; RESP 17–20
[2017-04-14] MEDS: ACCU-CHEK XX SCH (02:00)
[2017-04-14] MEDS: PANTOPRAZOLE (EC) 40 MG TAB PO SCH (05:28)
[2017-04-14 08:17] LABS: BASOPHILS % 0.5 % (0.0-2.0); EOSINOPHILS # 0.2 10^3/ul (0.0-0.5); EOSINOPHILS % 2.4 % (0.0-7.0); HEMATOCRIT 25.6 % (42.0-52.0); HEMOGLOBIN 7.8 g/dl (14.0-18.0); LYMPHOCYTES # 1.4 10^3/ul (0.8-2.9); LYMPHOCYTES % 17.9 % (15.0-51.0); MEAN CORPUSCULAR HEMOGLOBIN 25.7 pg (29.0-33.0); MEAN CORPUSCULAR HGB CONC 30.5 g/dl (32.0-37.0); MEAN CORPUSCULAR VOLUME 84.2 fl (82.0-101.0); MEAN PLATELET VOLUME 10.7 fl (7.4-10.4); MONOCYTE # 0.6 10^3/ul (0.3-0.9); MONOCYTES % 7.9 % (0.0-11.0); NEUTROPHIL # 5.5 10^3/ul (1.6-7.5); PLATELET COUNT 245 10^3/UL (140-415); RED BLOOD COUNT 3.04 10^6/ul (4.70-6.10); RED CELL DISTRIBUTION WIDTH 13.8 % (11.5-14.5); WHITE BLOOD COUNT 7.8 10^3/ul (4.8-10.8)
[2017-04-14 08:38] LABS: CALCIUM 8.6 mg/dl (8.4-10.2); CREATININE 5.6 mg/dl (0.61-1.24); MAGNESIUM 2.2 mg/dl (1.7-2.5); PHOSPHORUS 4.9 mg/dl (2.5-4.9); POTASSIUM 3.7 mmol/L (3.5-5.1)
[2017-04-14] MEDS: CLOPIDOGREL 75 MG TAB PO SCH (08:52)
[2017-04-14] MEDS: SEVELAMER CARBONATE 0.8 GM PKT PO SCH ×3 (08:53→17:13)
[2017-04-14] MEDS: LISINOPRIL 5 MG TAB PO SCH ×2 (08:53→20:46)
[2017-04-14] MEDS: METOPROLOL 50 MG TAB PO SCH ×2 (08:54→20:46)
[2017-04-14] MEDS: APIXABAN 5 MG TABLET PO SCH ×2 (08:54→20:46)
[2017-04-14] MEDS: AMIODARONE 200 MG TAB PO SCH (08:55)
[2017-04-14] MEDS: INSULIN ASPART [NOVOLOG] 3 ML PEN SC SCH ×7 (09:00→20:47)
[2017-04-14] MEDS: HEPARIN 5,000 UNIT/0.5 ML VIAL SC SCH ×2 (09:01→21:03)
[2017-04-14] MEDS: NIFEdipine (XL) 60 MG TAB PO SCH (09:06)
[2017-04-14] MEDS: SENNA/DOCUSATE NA (8.6MG/50MG) TAB PO SCH (09:06)
--- NOTE | 2017-04-14 09:11 | RADRPT ---
PROCEDURE: XR Chest. CLINICAL INDICATION: Shortness of breath TECHNIQUE: Single portable view of the chest was obtained COMPARISON: 04/10/2017 FINDINGS: Right basilar patchy opacities, decreased compared to prior exam. Moderate right pleural effusion. L eft lung is clear. Heart is enlarged. No acute osseous abnormality. Right chest tube is stable. Righ t pulse generator with intact leads. IMPRESSION: Improved aeration in the right lung. No pneumothorax. Moderate right pleural effusion with atelectas is or pneumonia. RPTAT: PP Physician Natividad Date Time Electronically viewed and signed by Isi Elise Physician on 04/14/2017 09:11 IA/
[2017-04-14] MEDS: ALBUTEROL 0.083% (NEB) 2.5 MG/3 ML AMP HHN SCH ×4 (09:50→20:32)
--- NOTE | 2017-04-14 11:06 | CONS ---
Date/Time of Note Date/Time of Note DATE: 04/14/17 TIME: 11:02 Consult Date/Type/Reason Admit Date/Time Mar 30, 2017 at 15:04 Initial Consult Date 03/30/17 Type of Consultation: Pulm Subjective Remains comfortable, no events. Minimal drainage. Objective Vital Signs Date Time Temp Pulse Resp B/P Pulse Ox O2 Delivery O2 Flow Rate FiO2 04/14/17 09:50 73 18 99 Nasal Cannula 3.0 04/14/17 07:52 98.4 129/62 04/12/17 08:30 28 Intake and Output 04/13/17 04/13/17 04/14/17 15:00 23:00 07:00 Intake Total 500 ml 250 ml 600 ml Output Total 1500 ml 40 ml Balance -1000 ml 210 ml 600 ml Exam GENERAL: Well-nourished well-developed gentleman comfortable at rest no acute distress VITAL SIGNS: per chart NECK: Supple. No JVD or lymphadenopathy. CARDIAC EXAM: S1, S2. No added sounds or murmurs. CHEST: Diminished air entry both lung bases. ABDOMEN: Soft, nontender. No guarding or rebound. EXTREMITIES: No cyanosis, clubbing or edema. NEUROLOGIC: Generalized weakness. No focal deficits. Results/Medications Result Diagram: 04/14/17 0739 04/14/17 0739 Results 24 hrs Laboratory Tests Test 04/13/17 12:19 04/13/17 17:40 04/13/17 20:26 04/14/17 07:39 Bedside Glucose 146 172 154 White Blood Count 7.8 Red Blood Count 3.04 L Hemoglobin 7.8 L Hematocrit 25.6 L Mean Corpuscular Volume 84.2 Mean Corpuscular Hemoglobin 25.7 L Mean Corpuscular Hemoglobin Concent 30.5 L Red Cell Distribution Width 13.8 Platelet Count 245 Mean Platelet Volume 10.7 H Neutrophils % 70.0 Lymphocytes % 17.9 Monocytes % 7.9 Eosinophils % 2.4 Basophils % 0.5 Nucleated Red Blood Cells % 0.0 Neutrophils # 5.5 Lymphocytes # 1.4 Monocytes # 0.6 Eosinophils # 0.2 Basophils # 0.0 Nucleated Red Blood Cells # 0.0 Sodium Level 135 Potassium Level 3.7 Chloride Level 96 L Carbon Dioxide Level 29 Anion Gap 14 Blood Urea Nitrogen 37 H Creatinine 5.60 H Glucose Level 227 H Calcium Level 8.6 Phosphorus Level 4.9 Magnesium Level 2.2 Test 04/14/17 08:18 Bedside Glucose 238 H Medications Current Medications Atorvastatin Calcium (Lipitor) 80 mg QHS PO Last administered on 04/13/17 20: 29; Admin Dose 80 MG; Start 03/30/17 at 21:00 Bisacodyl (Dulcolax Supp) 10 mg Q24H PRN [place] CONSTIPATION Last administered on 04/01/17 15:16; Admin Dose 10 MG; Start 03/30/17 at 14:30 Lisinopril (Zestril) 2.5 mg BID PO Last administered on 04/14/17 08:53; Admin Dose 2.5 MG; Start 03/30/17 at 21:00 Metoprolol Tartrate (Lopressor) 50 mg BID PO Last administered on 04/14/17 08 :54; Admin Dose 50 MG; Start 03/30/17 at 21:00 Nifedipine (Procardia Xl) 60 mg DAILY PO Last administered on 04/14/17 09:06 ; Admin Dose 60 MG; Start 03/31/17 at 09:00 Ondansetron HCl (Zofran Inj) 4 mg Q6H PRN IV NAUSEA AND/OR VOMITING; Start at 15:30 Acetaminophen (Tylenol Tab) 650 mg Q6H PRN PO PAIN LEVEL 1-3 OR FEVER; Start 03/30/17 at 15:30 Diagnostic Test (Pha) (Accu-Chek) 1 ea 02 XX Last administered on 04/12/17 02 :36; Admin Dose 1 EA; Start 03/31/17 at 02:00 Glucose (Glutose) 15 gm Q15M PRN PO DECREASED GLUCOSE; Start 03/30/17 at 15:30 Glucose (Glutose) 22.5 gm Q15M PRN PO DECREASED GLUCOSE; Start 03/30/17 at 15: 30 Dextrose (D50w Syringe) 25 ml Q15M PRN IV DECREASED GLUCOSE; Start 03/30/17 at 15:30 Dextrose (D50w Syringe) 50 ml Q15M PRN IV DECREASED GLUCOSE; Start 03/30/17 at 15:30 Glucagon (Glucagen) 1 mg Q15M PRN IM DECREASED GLUCOSE; Start 03/30/17 at 15: 30 Glucose (Glutose) 15 gm Q15M PRN BUCCAL DECREASED GLUCOSE; Start 03/30/17 at 15:30 Guaifenesin/ Codeine Phosphate (Robitussin Ac Liquid Cup) 5 ml Q4H PRN PO cough ; Start 03/30/17 at 19:30 Lidocaine (Lmx 4% Plus) 1 applic PRN PRN TOP Prior to HD cannulation Last administered on 03/31/17 11:23; Admin Dose 1 APPLIC; Start 03/30/17 at 21:00 Pantoprazole (Protonix Tab) 40 mg DAILY@06 PO Last administered on 04/14/17 05:28; Admin Dose 40 MG; Start 04/01/17 at 06:00 Heparin Sodium (Porcine) (Heparin (5000 Units/0.5 ml)) 5,000 unit BID SC Last administered on 04/14/17 09:01; Admin Dose 5,000 UNIT; Start 04/01/17 at 21: 00 Senna/Docusate Sodium (Senokot-S) 1 tab DAILY PO Last administered on 09:06; Admin Dose 1 TAB; Start 04/03/17 at 12:00 Mineral Oil (Fleet Mineral Oil Enema) 133 ml DAILY PRN [place] constipation Last administered on 04/05/17 16:41; Admin Dose 133 ML; Start 04/03/17 at 12:00 Insulin Glargine (Lantus) 16 unit QHS SC Last administered on 04/13/17 20:45 ; Admin Dose 16 UNIT; Start 04/09/17 at 21:00 Miscellaneous Information 1 ea NOTE XX ; Start 04/09/17 at 14:00 Glucagon (Glucagen) 1 mg Q15M PRN IM DECREASED GLUCOSE; Start 04/09/17 at 14:00 Morphine Sulfate (morphine) 2 mg Q2H PRN IV PAIN LEVEL 4-7 Last administered on 04/13/17 22:25; Admin Dose 2 MG; Start 04/09/17 at 15:00 Morphine Sulfate (morphine) 4 mg Q4H PRN IV MODERATE PAIN LEVEL 4-6 Last administered on 04/10/17 20:35; Admin Dose 4 MG; Start 04/10/17 at 20:30 Acetaminophen/ Hydrocodone Bitart ([place] (10/325)) 1 tab Q4H PRN PO PAIN Last administered on 04/13/17 21:13; Admin Dose 1 TAB; Start 04/10/17 at 20:30 Amiodarone HCl (Cordarone) 100 mg DAILY PO Last administered on 04/14/17 08: 55; Admin Dose 100 MG; Start 04/11/17 at 09:00 Apixaban (Eliquis) 2.5 mg BID PO Last administered on 04/14/17 08:54; Admin Dose 2.5 MG; Start 04/11/17 at 21:00 Clopidogrel Bisulfate (plaVIX) 75 mg DAILY PO Last administered on 04/14/17 08:52; Admin Dose 75 MG; Start 04/11/17 at 15:00 Assessment/Plan Chief Complaint/Hosp Course IMP: 1. Massive right lymphocytic/neutrophilic-predominant exudative effusion--s/p VATS . minimal effusion. 2. ESRD on HD RECS: 1. F/U pleural fluid studies and pleural bx 2. CT management as per [facility]; chest tube stable on water seal. will discuss with CT surgery ? dc chest tube Problems: KI WHITAKER MD, [facility] Apr 14, 2017 11:06
--- NOTE | 2017-04-14 14:09 | PN ---
Date/Time of Note Date/Time of Note DATE: 04/14/17 TIME: 14:06 Assessment/Plan VTE Prophylaxis VTE Prophylaxis Intervention: SCD's Lines/Catheters IV [facility] Type [facility]from [facility] [place] [facility] Urinary Cath still in place: No Assessment/Plan Assessment/Plan 1. Acute hypoxic respiratory failure secondary to pleural effusion in right lung, s/p VATS 04.09.17- improving - Chest tube placed on waterseal and chest xray shows moderate right effusion. Plans for removal today - No acute respiratory issues at this time. - Pulmonology on board and recommendations appreciated - CT surgery on board as well and appreciate consultation 2. Large Right pleural effusion s/p thoracentesis 03/30 - VATS done 04.09.17 - s/p chest tube placement per CT surgery which will be removed today per Pulmonology 3. Acute on chronic CHF - Last ECHO 10/2016 showed EF 65% with stage 1 diastolic dysfunction - Monitor I/O and daily weights - CXR shows cardiomegaly - Cardiology recs appreciated and will continue current management 4. ESRD on HD - patient on outpatient schedule - Nephrology consultation appreciated 5. Hypertensive urgency - BP controlled on home medications 6. DM, type 2 - Continue current management - ISS and accuchecks - A1c 6.9 7. Heart block/bradycardia with PPM - cardiology on board 8. CAD s/p stent 10/2016 - continue on home medications - Back on Plavix and Eliquis 9. Atrial fibrillation - on BB and eliquis - rate controlled 10. Constipation - bowel regime 11. Disposition - once chest tube removed and if remains stable will d/c in am - CM consult placed for FWW and HH with PT Subjective 24 Hr Interval Summary Free Text/Dictation Patient has no new complaints and resting comfortably in bed. No acute overnight events. Patient still has chest tube in place with plans for remove today per CT surgery. Exam/Review of Systems Vital Signs Vitals Vital Signs Date Time Temp Pulse Resp B/P Pulse Ox O2 Delivery O2 Flow Rate FiO2 04/14/17 12:40 86 18 04/14/17 11:58 98.3 117/56 99 04/14/17 09:50 Nasal Cannula 3.0 04/12/17 08:30 28 Intake and Output 04/13/17 04/13/17 04/14/17 15:00 23:00 07:00 Intake Total 500 ml 250 ml 600 ml Output Total 1500 ml 40 ml Balance -1000 ml 210 ml 600 ml Exam General: Patient is laying in bed and answers questions appropriately. awake and in no acute distress Mentation: Patient is alert and oriented 4, Head: Normocephalic atraumatic Eyes: EOMI, pupils reactive to light Neck: Supple, nontender, midline Respiratory: equal chest rise. diminished breath sounds at bases. chest tube in place right chest wall Cardiovascular: regular rate, no obvious murmurs Gastrointestinal: non-tender to palpation, bowel sounds heard. Neurological: Moves all extremities spontaneously Skin: No new skin lesions Results Result Diagram: 04/14/17 0739 04/14/17 0739 Results 24 hrs Laboratory Tests Test 04/13/17 17:40 04/13/17 20:26 04/14/17 07:39 04/14/17 08:18 Bedside Glucose 172 154 238 H White Blood Count 7.8 Red Blood Count 3.04 L Hemoglobin 7.8 L Hematocrit 25.6 L Mean Corpuscular Volume 84.2 Mean Corpuscular Hemoglobin 25.7 L Mean Corpuscular Hemoglobin Concent 30.5 L Red Cell Distribution Width 13.8 Platelet Count 245 Mean Platelet Volume 10.7 H Neutrophils % 70.0 Lymphocytes % 17.9 Monocytes % 7.9 Eosinophils % 2.4 Basophils % 0.5 Nucleated Red Blood Cells % 0.0 Neutrophils # 5.5 Lymphocytes # 1.4 Monocytes # 0.6 Eosinophils # 0.2 Basophils # 0.0 Nucleated Red Blood Cells # 0.0 Sodium Level 135 Potassium Level 3.7 Chloride Level 96 L Carbon Dioxide Level 29 Anion Gap 14 Blood Urea Nitrogen 37 H Creatinine 5.60 H Glucose Level 227 H Calcium Level 8.6 Phosphorus Level 4.9 Magnesium Level 2.2 Test 04/14/17 12:01 Bedside Glucose 97 Medications Medications Current Medications Atorvastatin Calcium (Lipitor) 80 mg QHS PO Last administered on 04/13/17 20: 29; Admin Dose 80 MG; Start 03/30/17 at 21:00 Bisacodyl (Dulcolax Supp) 10 mg Q24H PRN [place] CONSTIPATION Last administered on 04/01/17 15:16; Admin Dose 10 MG; Start 03/30/17 at 14:30 Lisinopril (Zestril) 2.5 mg BID PO Last administered on 04/14/17 08:53; Admin Dose 2.5 MG; Start 03/30/17 at 21:00 Metoprolol Tartrate (Lopressor) 50 mg BID PO Last administered on 04/14/17 08 :54; Admin Dose 50 MG; Start 03/30/17 at 21:00 Nifedipine (Procardia Xl) 60 mg DAILY PO Last administered on 04/14/17 09:06 ; Admin Dose 60 MG; Start 03/31/17 at 09:00 Ondansetron HCl (Zofran Inj) 4 mg Q6H PRN IV NAUSEA AND/OR VOMITING; Start at 15:30 Acetaminophen (Tylenol Tab) 650 mg Q6H PRN PO PAIN LEVEL 1-3 OR FEVER; Start 03/30/17 at 15:30 Diagnostic Test (Pha) (Accu-Chek) 1 ea 02 XX Last administered on 04/12/17 02 :36; Admin Dose 1 EA; Start 03/31/17 at 02:00 Glucose (Glutose) 15 gm Q15M PRN PO DECREASED GLUCOSE; Start 03/30/17 at 15:30 Glucose (Glutose) 22.5 gm Q15M PRN PO DECREASED GLUCOSE; Start 03/30/17 at 15: 30 Dextrose (D50w Syringe) 25 ml Q15M PRN IV DECREASED GLUCOSE; Start 03/30/17 at 15:30 Dextrose (D50w Syringe) 50 ml Q15M PRN IV DECREASED GLUCOSE; Start 03/30/17 at 15:30 Glucagon (Glucagen) 1 mg Q15M PRN IM DECREASED GLUCOSE; Start 03/30/17 at 15: 30 Glucose (Glutose) 15 gm Q15M PRN BUCCAL DECREASED GLUCOSE; Start 03/30/17 at 15:30 Guaifenesin/ Codeine Phosphate (Robitussin Ac Liquid Cup) 5 ml Q4H PRN PO cough ; Start 03/30/17 at 19:30 Lidocaine (Lmx 4% Plus) 1 applic PRN PRN TOP Prior to HD cannulation Last administered on 03/31/17 11:23; Admin Dose 1 APPLIC; Start 03/30/17 at 21:00 Pantoprazole (Protonix Tab) 40 mg DAILY@06 PO Last administered on 04/14/17 05:28; Admin Dose 40 MG; Start 04/01/17 at 06:00 Heparin Sodium (Porcine) (Heparin (5000 Units/0.5 ml)) 5,000 unit BID SC Last administered on 04/14/17 09:01; Admin Dose 5,000 UNIT; Start 04/01/17 at 21: 00 Senna/Docusate Sodium (Senokot-S) 1 tab DAILY PO Last administered on 09:06; Admin Dose 1 TAB; Start 04/03/17 at 12:00 Mineral Oil (Fleet Mineral Oil Enema) 133 ml DAILY PRN [place] constipation Last administered on 04/05/17 16:41; Admin Dose 133 ML; Start 04/03/17 at 12:00 Insulin Glargine (Lantus) 16 unit QHS SC Last administered on 04/13/17 20:45 ; Admin Dose 16 UNIT; Start 04/09/17 at 21:00 Miscellaneous Information 1 ea NOTE XX ; Start 04/09/17 at 14:00 Glucagon (Glucagen) 1 mg Q15M PRN IM DECREASED GLUCOSE; Start 04/09/17 at 14:00 Morphine Sulfate (morphine) 2 mg Q2H PRN IV PAIN LEVEL 4-7 Last administered on 04/13/17 22:25; Admin Dose 2 MG; Start 04/09/17 at 15:00 Morphine Sulfate (morphine) 4 mg Q4H PRN IV MODERATE PAIN LEVEL 4-6 Last administered on 04/10/17 20:35; Admin Dose 4 MG; Start 04/10/17 at 20:30 Acetaminophen/ Hydrocodone Bitart ([place] (10/325)) 1 tab Q4H PRN PO PAIN Last administered on 04/13/17 21:13; Admin Dose 1 TAB; Start 04/10/17 at 20:30 Amiodarone HCl (Cordarone) 100 mg DAILY PO Last administered on 04/14/17 08: 55; Admin Dose 100 MG; Start 04/11/17 at 09:00 Apixaban (Eliquis) 2.5 mg BID PO Last administered on 04/14/17 08:54; Admin Dose 2.5 MG; Start 04/11/17 at 21:00 Clopidogrel Bisulfate (plaVIX) 75 mg DAILY PO Last administered on 04/14/17 08:52; Admin Dose 75 MG; Start 04/11/17 at 15:00 JAE RAHMAN MD Apr 14, 2017 14:09
--- NOTE | 2017-04-14 14:25 | RADRPT ---
Vent Rate: 134 bpm RR Interval: 0 msec [place] Interval: 0 msec QRS Duration: 112 msec QT Interval: 274 msec QTC Interval: 409 msec P-R-T [place]: 0 - -25 - 98 degrees Atrial fibrillation with rapid ventricular response Minimal voltage criteria for LVH, may be normal variant Marked ST abnormality, possible lateral subendocardial injury Abnormal ECG Electronically Signed By: Tommy Holley [id number]
--- NOTE | 2017-04-14 16:20 | CONS ---
Date/Time of Note Date/Time of Note DATE: 04/14/17 TIME: 16:17 Assessment/Plan Assessment/Plan Additional Assessment/Plan 1. Acute hypoxic resp failure due to acute fluid overload and Pleural effusion 2. ESRD on HD -TTS schedule 3. Right hemithorax multiple loculated right pleural effusion s/p Thoracentesis 250 cc drained- pt has multiple pockets of loculated effusion 4. h/o CAD s/p CABG 5/ H/o recent SD and s/p stenting by 6/ HTN 7/ HL Plan: -s/p VATS with decortication, - s/p HD today 1.7 L removed, we will keep him on Thu, Thursday schedule( his original schedule) will follow up Consultation Date/Type/Reason Admit Date/Time Mar 30, 2017 at 15:04 Initial Consult Date 03/30/17 Type of Consultation: NEPHROLOGY 24 HR Interval Summary Free Text/Dictation s/p HD today 1.7 L removed, BP stable Exam/Review of Systems Vital Signs Vitals Vital Signs Date Time Temp Pulse Resp B/P Pulse Ox O2 Delivery O2 Flow Rate FiO2 04/14/17 15:49 98.0 78 18 134/60 99 04/14/17 09:50 Nasal Cannula 3.0 04/12/17 08:30 28 Intake and Output 04/13/17 04/13/17 04/14/17 15:00 23:00 07:00 Intake Total 500 ml 250 ml 600 ml Output Total 1500 ml 40 ml Balance -1000 ml 210 ml 600 ml Exam Constitutional: alert Respiratory: crackles/rales, diminished breath sounds, other (+ chest tube in place) Cardiovascular: nl pulses, regular rate and rhythm Gastrointestinal: non-tender, soft Musculoskeletal: nl extremities to inspection Neurological: KNIFE FINISHER II-XII intact, nl mental status, nl speech Results Result Diagram: 04/14/17 0739 04/14/17 0739 Results 24 hrs Laboratory Tests Test 04/13/17 17:40 04/13/17 20:26 04/14/17 07:39 04/14/17 08:18 Bedside Glucose 172 154 238 H White Blood Count 7.8 Red Blood Count 3.04 L Hemoglobin 7.8 L Hematocrit 25.6 L Mean Corpuscular Volume 84.2 Mean Corpuscular Hemoglobin 25.7 L Mean Corpuscular Hemoglobin Concent 30.5 L Red Cell Distribution Width 13.8 Platelet Count 245 Mean Platelet Volume 10.7 H Neutrophils % 70.0 Lymphocytes % 17.9 Monocytes % 7.9 Eosinophils % 2.4 Basophils % 0.5 Nucleated Red Blood Cells % 0.0 Neutrophils # 5.5 Lymphocytes # 1.4 Monocytes # 0.6 Eosinophils # 0.2 Basophils # 0.0 Nucleated Red Blood Cells # 0.0 Sodium Level 135 Potassium Level 3.7 Chloride Level 96 L Carbon Dioxide Level 29 Anion Gap 14 Blood Urea Nitrogen 37 H Creatinine 5.60 H Glucose Level 227 H Calcium Level 8.6 Phosphorus Level 4.9 Magnesium Level 2.2 Test 04/14/17 12:01 04/14/17 14:51 Bedside Glucose 97 150 Medications Medications Current Medications Atorvastatin Calcium (Lipitor) 80 mg QHS PO Last administered on 04/13/17 20: 29; Admin Dose 80 MG; Start 03/30/17 at 21:00 Bisacodyl (Dulcolax Supp) 10 mg Q24H PRN [place] CONSTIPATION Last administered on 04/01/17 15:16; Admin Dose 10 MG; Start 03/30/17 at 14:30 Lisinopril (Zestril) 2.5 mg BID PO Last administered on 04/14/17 08:53; Admin Dose 2.5 MG; Start 03/30/17 at 21:00 Metoprolol Tartrate (Lopressor) 50 mg BID PO Last administered on 04/14/17 08 :54; Admin Dose 50 MG; Start 03/30/17 at 21:00 Nifedipine (Procardia Xl) 60 mg DAILY PO Last administered on 04/14/17 09:06 ; Admin Dose 60 MG; Start 03/31/17 at 09:00 Ondansetron HCl (Zofran Inj) 4 mg Q6H PRN IV NAUSEA AND/OR VOMITING; Start at 15:30 Acetaminophen (Tylenol Tab) 650 mg Q6H PRN PO PAIN LEVEL 1-3 OR FEVER; Start 03/30/17 at 15:30 Diagnostic Test (Pha) (Accu-Chek) 1 ea 02 XX Last administered on 04/12/17 02 :36; Admin Dose 1 EA; Start 03/31/17 at 02:00 Glucose (Glutose) 15 gm Q15M PRN PO DECREASED GLUCOSE; Start 03/30/17 at 15:30 Glucose (Glutose) 22.5 gm Q15M PRN PO DECREASED GLUCOSE; Start 03/30/17 at 15: 30 Dextrose (D50w Syringe) 25 ml Q15M PRN IV DECREASED GLUCOSE; Start 03/30/17 at 15:30 Dextrose (D50w Syringe) 50 ml Q15M PRN IV DECREASED GLUCOSE; Start 03/30/17 at 15:30 Glucagon (Glucagen) 1 mg Q15M PRN IM DECREASED GLUCOSE; Start 03/30/17 at 15: 30 Glucose (Glutose) 15 gm Q15M PRN BUCCAL DECREASED GLUCOSE; Start 03/30/17 at 15:30 Guaifenesin/ Codeine Phosphate (Robitussin Ac Liquid Cup) 5 ml Q4H PRN PO cough ; Start 03/30/17 at 19:30 Lidocaine (Lmx 4% Plus) 1 applic PRN PRN TOP Prior to HD cannulation Last administered on 03/31/17 11:23; Admin Dose 1 APPLIC; Start 03/30/17 at 21:00 Pantoprazole (Protonix Tab) 40 mg DAILY@06 PO Last administered on 04/14/17 05:28; Admin Dose 40 MG; Start 04/01/17 at 06:00 Heparin Sodium (Porcine) (Heparin (5000 Units/0.5 ml)) 5,000 unit BID SC Last administered on 04/14/17 09:01; Admin Dose 5,000 UNIT; Start 04/01/17 at 21: 00 Senna/Docusate Sodium (Senokot-S) 1 tab DAILY PO Last administered on 09:06; Admin Dose 1 TAB; Start 04/03/17 at 12:00 Mineral Oil (Fleet Mineral Oil Enema) 133 ml DAILY PRN [place] constipation Last administered on 04/05/17 16:41; Admin Dose 133 ML; Start 04/03/17 at 12:00 Insulin Glargine (Lantus) 16 unit QHS SC Last administered on 04/13/17 20:45 ; Admin Dose 16 UNIT; Start 04/09/17 at 21:00 Miscellaneous Information 1 ea NOTE XX ; Start 04/09/17 at 14:00 Glucagon (Glucagen) 1 mg Q15M PRN IM DECREASED GLUCOSE; Start 04/09/17 at 14:00 Morphine Sulfate (morphine) 2 mg Q2H PRN IV PAIN LEVEL 4-7 Last administered on 04/13/17 22:25; Admin Dose 2 MG; Start 04/09/17 at 15:00 Morphine Sulfate (morphine) 4 mg Q4H PRN IV MODERATE PAIN LEVEL 4-6 Last administered on 04/10/17 20:35; Admin Dose 4 MG; Start 04/10/17 at 20:30 Acetaminophen/ Hydrocodone Bitart ([place] (10/325)) 1 tab Q4H PRN PO PAIN Last administered on 04/13/17 21:13; Admin Dose 1 TAB; Start 04/10/17 at 20:30 Amiodarone HCl (Cordarone) 100 mg DAILY PO Last administered on 04/14/17 08: 55; Admin Dose 100 MG; Start 04/11/17 at 09:00 Apixaban (Eliquis) 2.5 mg BID PO Last administered on 04/14/17 08:54; Admin Dose 2.5 MG; Start 04/11/17 at 21:00 Clopidogrel Bisulfate (plaVIX) 75 mg DAILY PO Last administered on 04/14/17 08:52; Admin Dose 75 MG; Start 04/11/17 at 15:00 RAYNE FITCH MD Apr 14, 2017 16:20
[2017-04-14] MEDS: BISACODYL 10 MG SUPP PR PRN (17:13)
[2017-04-14] MEDS: HYDROCODONE/APAP (10/325) TAB PO PRN (17:14)
[2017-04-14] MEDS: ATORVASTATIN 80 MG TAB PO SCH (20:45)
[2017-04-14] MEDS: INSULIN GLARGINE [LANtus] 3 ML PEN SC SCH (21:04)
--- NOTE | 2017-04-14 23:51 | PN ---
Date/Time of Note Date/Time of Note DATE: 04/14/17 TIME: 23:51 Assessment/Plan Lines/Catheters IV Catheter Type (from Nrsg): Mid Line Yañez in Place (from Nrsg): No Assessment/Plan Chief Complaint/Hosp Course IMPRESSION: Right-sided pleural effusion which appears to be loculated. RECOMMENDATIONS: SP video-assisted thoracic surgery and decortication. CXR 1. Interval placement of right chest tube with significant improvement of the right hemithorax with a residual small right pleural effusion and right lung consolidation consistent with atelectasis and/or pneumonia. 2. Cardiomegaly without congestive heart failure. 3. No pneumothorax. CT [address] Problems: Subjective 24 Hr Interval Summary Constitutional: improved Pain Control: mild Exam/Review of Systems Vital Signs Vitals Vital Signs Date Time Temp Pulse Resp B/P Pulse Ox O2 Delivery O2 Flow Rate FiO2 04/14/17 20:32 2.0 04/14/17 20:32 78 18 96 Nasal Cannula 04/14/17 20:17 98.5 100/60 04/12/17 08:30 28 Intake and Output 04/13/17 04/13/17 04/14/17 15:00 23:00 07:00 Intake Total 500 ml 250 ml 600 ml Output Total 1500 ml 40 ml Balance -1000 ml 210 ml 600 ml Exam ENMT: mucosa pink and moist, nl external ears & nose, nl lips & teeth, nl nasal mucosa & septum Neck: non-tender, supple Respiratory: clear to auscultation, normal air movement Cardiovascular: nl pulses, regular rate and rhythm Gastrointestinal: nl liver, spleen, non-tender, soft Results Result Diagram: 04/14/17 0739 04/14/17 0739 SHAYLA YAÑEZ MD Apr 14, 2017 23:51
[2017-04-15] VITALS (11 sets, daily range): BP systolic 99–127; BP diastolic 47–58; PULSE 69–83; RESP 16–18
[2017-04-15] MEDS: ACCU-CHEK XX SCH (01:04)
--- NOTE | 2017-04-15 01:22 | RADRPT ---
PROCEDURE: Portable chest x-ray. CLINICAL INDICATION: 71-year of age, male. Status post chest tube removal TECHNIQUE: Portable AP view of the chest. COMPARISON: Chest x-ray April 14, 2017 FINDINGS: Medical devices: Previously identified right chest tube has been removed. There is a dual lead righ t subclavian pacemaker with electrodes over the right atrium and right ventricle that is unchanged. Cardiomediastinal contours are stable. Right lung base opacity is unchanged. Left lung is clear. Loculated right pleural effusion is unchanged. Negative for evidence of a pneumothorax. No acute bony abnormality. Additional comment: None. IMPRESSION: 1. Status post removal of the right chest tube. Negative for evidence of a pneumothorax. 2. Loculated right pleural effusion and right lung base opacity are unchanged.. RPTAT: HCTS Physician Lou Date Time Electronically viewed and signed by Physician Lou on 04/15/2017 01:21 /
[2017-04-15] MEDS: PANTOPRAZOLE (EC) 40 MG TAB PO SCH (05:36)
[2017-04-15] MEDS ORDERED: (Nursing Note) XX SCH (07:00)
[2017-04-15] MEDS: SEVELAMER CARBONATE 0.8 GM PKT PO SCH ×3 (07:59→17:33)
[2017-04-15] MEDS: INSULIN ASPART [NOVOLOG] 3 ML PEN SC SCH ×7 (08:11→20:59)
--- NOTE | 2017-04-15 08:33 | RADRPT ---
PROCEDURE: XR Chest. CLINICAL INDICATION: Pneumonia, CHF TECHNIQUE: Single frontal chest x-ray. COMPARISON: CHEST 04/15/2017 FINDINGS: Focal opacity at the right lung base is grossly unchanged. No pneumothorax is identified cardiomedi astinal silhouette is stable in appearance. Aortic atherosclerotic calcification is noted. Right-s ided dual lead pacemaker remains in place. The osseous structures are remarkable for degenerative en thesopathy of the spine. IMPRESSION: 1. Nonspecific focal opacity at the right lung base is grossly unchanged - considerations include p neumonia, atelectasis, and/or mild pleural effusion. 2. Aortic atherosclerosis. 3. No gross interval change. RPTAT: QQ .Jun Pruett MD, MD Date Time Electronically viewed and signed by .Jun Pruett MD, on 04/15/2017 08:32 .R/
[2017-04-15] MEDS: APIXABAN 5 MG TABLET PO SCH ×2 (08:39→20:54)
[2017-04-15] MEDS: LISINOPRIL 5 MG TAB PO SCH ×2 (08:39→21:00)
[2017-04-15] MEDS: SENNA/DOCUSATE NA (8.6MG/50MG) TAB PO SCH (08:39)
[2017-04-15] MEDS: AMIODARONE 200 MG TAB PO SCH (08:40)
[2017-04-15] MEDS: CLOPIDOGREL 75 MG TAB PO SCH (08:40)
[2017-04-15] MEDS: METOPROLOL 50 MG TAB PO SCH ×2 (08:40→20:59)
[2017-04-15] MEDS: HEPARIN 5,000 UNIT/0.5 ML VIAL SC SCH (08:43)
[2017-04-15 08:53] LABS: BASOPHIL # 0.1 10^3/ul (0.0-0.1); BASOPHILS % 0.6 % (0.0-2.0); EOSINOPHILS # 0.2 10^3/ul (0.0-0.5); EOSINOPHILS % 2.4 % (0.0-7.0); HEMOGLOBIN 8.7 g/dl (14.0-18.0); LYMPHOCYTES # 1.3 10^3/ul (0.8-2.9); LYMPHOCYTES % 14.9 % (15.0-51.0); MEAN CORPUSCULAR HEMOGLOBIN 25.4 pg (29.0-33.0); MEAN CORPUSCULAR VOLUME 84.5 fl (82.0-101.0); MEAN PLATELET VOLUME 10.8 fl (7.4-10.4); MONOCYTE # 0.6 10^3/ul (0.3-0.9); MONOCYTES % 6.6 % (0.0-11.0); NEUTROPHIL # 6.4 10^3/ul (1.6-7.5); PLATELET COUNT 279 10^3/UL (140-415); RED BLOOD COUNT 3.43 10^6/ul (4.70-6.10); RED CELL DISTRIBUTION WIDTH 13.7 % (11.5-14.5); WHITE BLOOD COUNT 8.7 10^3/ul (4.8-10.8)
[2017-04-15 08:59] LABS: CALCIUM 9.3 mg/dl (8.4-10.2); CREATININE 6.09 mg/dl (0.61-1.24); MAGNESIUM 2.2 mg/dl (1.7-2.5); PHOSPHORUS 4.8 mg/dl (2.5-4.9); POTASSIUM 4.3 mmol/L (3.5-5.1)
[2017-04-15] MEDS: ALBUTEROL 0.083% (NEB) 2.5 MG/3 ML AMP HHN SCH ×3 (09:53→21:07)
[2017-04-15] MEDS: NIFEdipine (XL) 60 MG TAB PO SCH (10:56)
--- NOTE | 2017-04-15 12:19 | CONS ---
Date/Time of Note Date/Time of Note DATE: 04/15/17 TIME: 12:15 Consult Date/Type/Reason Admit Date/Time Mar 30, 2017 at 15:04 Initial Consult Date 03/30/17 Type of Consultation: Pulm Subjective Comfortable following chest tube removal. Objective Vital Signs Date Time Temp Pulse Resp B/P Pulse Ox O2 Delivery O2 Flow Rate FiO2 04/15/17 11:46 98.0 72 17 114/55 99 04/15/17 09:55 Nasal Cannula 2.0 04/12/17 08:30 28 Intake and Output 04/14/17 04/14/17 04/15/17 14:59 22:59 06:59 Intake Total 300 ml 250 ml 350 ml Output Total 2000 ml 40 ml Balance -1700 ml 210 ml 350 ml Exam GENERAL: elderly gentleman, comfortable at rest VITAL SIGNS: per chart NECK: Supple. No JVD or lymphadenopathy. CARDIAC EXAM: S1, S2. No added sounds or murmurs. CHEST: Diminished air entry bilaterally R> L ABDOMEN: Soft, nontender. No guarding or rebound. EXTREMITIES: No cyanosis, clubbing or edema. NEUROLOGIC: Generalized weakness. No focal deficits. Results/Medications Result Diagram: 04/15/17 0812 04/15/17 0812 Results 24 hrs Laboratory Tests Test 04/14/17 14:51 04/14/17 17:18 04/14/17 20:45 04/15/17 07:51 Bedside Glucose 150 232 H 153 208 Test 04/15/17 08:12 04/15/17 11:57 White Blood Count 8.7 Red Blood Count 3.43 L Hemoglobin 8.7 L Hematocrit 29.0 L Mean Corpuscular Volume 84.5 Mean Corpuscular Hemoglobin 25.4 L Mean Corpuscular Hemoglobin Concent 30.0 L Red Cell Distribution Width 13.7 Platelet Count 279 Mean Platelet Volume 10.8 H Neutrophils % 74.0 Lymphocytes % 14.9 L Monocytes % 6.6 Eosinophils % 2.4 Basophils % 0.6 Nucleated Red Blood Cells % 0.0 Neutrophils # 6.4 Lymphocytes # 1.3 Monocytes # 0.6 Eosinophils # 0.2 Basophils # 0.1 Nucleated Red Blood Cells # 0.0 Sodium Level 135 Potassium Level 4.3 Chloride Level 96 L Carbon Dioxide Level 29 Anion Gap 14 Blood Urea Nitrogen 39 H Creatinine 6.09 H Glucose Level 210 Calcium Level 9.3 Phosphorus Level 4.8 Magnesium Level 2.2 Bedside Glucose 168 Medications Current Medications Atorvastatin Calcium (Lipitor) 80 mg QHS PO Last administered on 04/14/17 20: 45; Admin Dose 80 MG; Start 03/30/17 at 21:00 Bisacodyl (Dulcolax Supp) 10 mg Q24H PRN [place] CONSTIPATION Last administered on 04/14/17 17:13; Admin Dose 10 MG; Start 03/30/17 at 14:30 Lisinopril (Zestril) 2.5 mg BID PO Last administered on 04/15/17 08:39; Admin Dose 2.5 MG; Start 03/30/17 at 21:00 Metoprolol Tartrate (Lopressor) 50 mg BID PO Last administered on 04/15/17 08 :40; Admin Dose 50 MG; Start 03/30/17 at 21:00 Nifedipine (Procardia Xl) 60 mg DAILY PO Last administered on 04/15/17 10:56 ; Admin Dose 60 MG; Start 03/31/17 at 09:00 Ondansetron HCl (Zofran Inj) 4 mg Q6H PRN IV NAUSEA AND/OR VOMITING; Start at 15:30 Acetaminophen (Tylenol Tab) 650 mg Q6H PRN PO PAIN LEVEL 1-3 OR FEVER; Start 03/30/17 at 15:30 Diagnostic Test (Pha) (Accu-Chek) 1 ea 02 XX Last administered on 04/12/17 02 :36; Admin Dose 1 EA; Start 03/31/17 at 02:00 Glucose (Glutose) 15 gm Q15M PRN PO DECREASED GLUCOSE; Start 03/30/17 at 15:30 Glucose (Glutose) 22.5 gm Q15M PRN PO DECREASED GLUCOSE; Start 03/30/17 at 15: 30 Dextrose (D50w Syringe) 25 ml Q15M PRN IV DECREASED GLUCOSE; Start 03/30/17 at 15:30 Dextrose (D50w Syringe) 50 ml Q15M PRN IV DECREASED GLUCOSE; Start 03/30/17 at 15:30 Glucagon (Glucagen) 1 mg Q15M PRN IM DECREASED GLUCOSE; Start 03/30/17 at 15: 30 Glucose (Glutose) 15 gm Q15M PRN BUCCAL DECREASED GLUCOSE; Start 03/30/17 at 15:30 Guaifenesin/ Codeine Phosphate (Robitussin Ac Liquid Cup) 5 ml Q4H PRN PO cough ; Start 03/30/17 at 19:30 Lidocaine (Lmx 4% Plus) 1 applic PRN PRN TOP Prior to HD cannulation Last administered on 03/31/17 11:23; Admin Dose 1 APPLIC; Start 03/30/17 at 21:00 Pantoprazole (Protonix Tab) 40 mg DAILY@06 PO Last administered on 04/15/17 05:36; Admin Dose 40 MG; Start 04/01/17 at 06:00 Senna/Docusate Sodium (Senokot-S) 1 tab DAILY PO Last administered on 08:39; Admin Dose 1 TAB; Start 04/03/17 at 12:00 Mineral Oil (Fleet Mineral Oil Enema) 133 ml DAILY PRN [place] constipation Last administered on 04/05/17 16:41; Admin Dose 133 ML; Start 04/03/17 at 12:00 Insulin Glargine (Lantus) 16 unit QHS SC Last administered on 04/14/17 21:04 ; Admin Dose 16 UNIT; Start 04/09/17 at 21:00 Miscellaneous Information 1 ea NOTE XX ; Start 04/09/17 at 14:00 Glucagon (Glucagen) 1 mg Q15M PRN IM DECREASED GLUCOSE; Start 04/09/17 at 14:00 Morphine Sulfate (morphine) 2 mg Q2H PRN IV PAIN LEVEL 4-7 Last administered on 04/13/17 22:25; Admin Dose 2 MG; Start 04/09/17 at 15:00 Morphine Sulfate (morphine) 4 mg Q4H PRN IV MODERATE PAIN LEVEL 4-6 Last administered on 04/10/17 20:35; Admin Dose 4 MG; Start 04/10/17 at 20:30 Acetaminophen/ Hydrocodone Bitart ([place] (10/325)) 1 tab Q4H PRN PO PAIN Last administered on 04/14/17 17:14; Admin Dose 1 TAB; Start 04/10/17 at 20:30 Amiodarone HCl (Cordarone) 100 mg DAILY PO Last administered on 04/15/17 08: 40; Admin Dose 100 MG; Start 04/11/17 at 09:00 Apixaban (Eliquis) 2.5 mg BID PO Last administered on 04/15/17 08:39; Admin Dose 2.5 MG; Start 04/11/17 at 21:00 Clopidogrel Bisulfate (plaVIX) 75 mg DAILY PO Last administered on 04/15/17 08:40; Admin Dose 75 MG; Start 04/11/17 at 15:00 Miscellaneous Information 1 ea NOTE XX ; Start 04/15/17 at 07:00 Assessment/Plan Chief Complaint/Hosp Course IMP: 1. Massive right lymphocytic/neutrophilic-predominant exudative effusion--s/p VATS . minimal effusion. 2. ESRD on HD RECS: 1. F/U pleural fluid studies and pleural bx 2. stable following chest tube removal. dc to SNF ? Problems: KI WHITAKER MD, [facility] Apr 15, 2017 12:19
--- NOTE | 2017-04-15 17:35 | CONS ---
Date/Time of Note Date/Time of Note DATE: 04/15/17 TIME: 17:35 Consult Date/Type/Reason Admit Date/Time Mar 30, 2017 at 15:04 Initial Consult Date 03/30/17 Type of Consultation: card Objective Vital Signs Date Time Temp Pulse Resp B/P Pulse Ox O2 Delivery O2 Flow Rate FiO2 04/15/17 16:42 83 04/15/17 16:39 98 Nasal Cannula 2.0 04/15/17 15:47 98.1 18 127/58 04/12/17 08:30 28 Intake and Output 04/14/17 04/14/17 04/15/17 15:00 23:00 07:00 Intake Total 300 ml 250 ml 350 ml Output Total 2000 ml 40 ml Balance -1700 ml 210 ml 350 ml Results/Medications Result Diagram: 04/15/17 0812 04/15/17 0812 Results 24 hrs Laboratory Tests Test 04/14/17 20:45 04/15/17 07:51 04/15/17 08:12 04/15/17 11:57 Bedside Glucose 153 208 168 White Blood Count 8.7 Red Blood Count 3.43 L Hemoglobin 8.7 L Hematocrit 29.0 L Mean Corpuscular Volume 84.5 Mean Corpuscular Hemoglobin 25.4 L Mean Corpuscular Hemoglobin Concent 30.0 L Red Cell Distribution Width 13.7 Platelet Count 279 Mean Platelet Volume 10.8 H Neutrophils % 74.0 Lymphocytes % 14.9 L Monocytes % 6.6 Eosinophils % 2.4 Basophils % 0.6 Nucleated Red Blood Cells % 0.0 Neutrophils # 6.4 Lymphocytes # 1.3 Monocytes # 0.6 Eosinophils # 0.2 Basophils # 0.1 Nucleated Red Blood Cells # 0.0 Sodium Level 135 Potassium Level 4.3 Chloride Level 96 L Carbon Dioxide Level 29 Anion Gap 14 Blood Urea Nitrogen 39 H Creatinine 6.09 H Glucose Level 210 Calcium Level 9.3 Phosphorus Level 4.8 Magnesium Level 2.2 Test 04/15/17 17:22 Bedside Glucose 160 Medications Current Medications Atorvastatin Calcium (Lipitor) 80 mg QHS PO Last administered on 04/14/17 20: 45; Admin Dose 80 MG; Start 03/30/17 at 21:00 Bisacodyl (Dulcolax Supp) 10 mg Q24H PRN [place] CONSTIPATION Last administered on 04/14/17 17:13; Admin Dose 10 MG; Start 03/30/17 at 14:30 Lisinopril (Zestril) 2.5 mg BID PO Last administered on 04/15/17 08:39; Admin Dose 2.5 MG; Start 03/30/17 at 21:00 Metoprolol Tartrate (Lopressor) 50 mg BID PO Last administered on 04/15/17 08 :40; Admin Dose 50 MG; Start 03/30/17 at 21:00 Nifedipine (Procardia Xl) 60 mg DAILY PO Last administered on 04/15/17 10:56 ; Admin Dose 60 MG; Start 03/31/17 at 09:00 Ondansetron HCl (Zofran Inj) 4 mg Q6H PRN IV NAUSEA AND/OR VOMITING; Start at 15:30 Acetaminophen (Tylenol Tab) 650 mg Q6H PRN PO PAIN LEVEL 1-3 OR FEVER; Start 03/30/17 at 15:30 Diagnostic Test (Pha) (Accu-Chek) 1 ea 02 XX Last administered on 04/12/17 02 :36; Admin Dose 1 EA; Start 03/31/17 at 02:00 Glucose (Glutose) 15 gm Q15M PRN PO DECREASED GLUCOSE; Start 03/30/17 at 15:30 Glucose (Glutose) 22.5 gm Q15M PRN PO DECREASED GLUCOSE; Start 03/30/17 at 15: 30 Dextrose (D50w Syringe) 25 ml Q15M PRN IV DECREASED GLUCOSE; Start 03/30/17 at 15:30 Dextrose (D50w Syringe) 50 ml Q15M PRN IV DECREASED GLUCOSE; Start 03/30/17 at 15:30 Glucagon (Glucagen) 1 mg Q15M PRN IM DECREASED GLUCOSE; Start 03/30/17 at 15: 30 Glucose (Glutose) 15 gm Q15M PRN BUCCAL DECREASED GLUCOSE; Start 03/30/17 at 15:30 Guaifenesin/ Codeine Phosphate (Robitussin Ac Liquid Cup) 5 ml Q4H PRN PO cough ; Start 03/30/17 at 19:30 Lidocaine (Lmx 4% Plus) 1 applic PRN PRN TOP Prior to HD cannulation Last administered on 03/31/17 11:23; Admin Dose 1 APPLIC; Start 03/30/17 at 21:00 Pantoprazole (Protonix Tab) 40 mg DAILY@06 PO Last administered on 04/15/17 05:36; Admin Dose 40 MG; Start 04/01/17 at 06:00 Senna/Docusate Sodium (Senokot-S) 1 tab DAILY PO Last administered on 08:39; Admin Dose 1 TAB; Start 04/03/17 at 12:00 Mineral Oil (Fleet Mineral Oil Enema) 133 ml DAILY PRN [place] constipation Last administered on 04/05/17 16:41; Admin Dose 133 ML; Start 04/03/17 at 12:00 Insulin Glargine (Lantus) 16 unit QHS SC Last administered on 04/14/17 21:04 ; Admin Dose 16 UNIT; Start 04/09/17 at 21:00 Miscellaneous Information 1 ea NOTE XX ; Start 04/09/17 at 14:00 Glucagon (Glucagen) 1 mg Q15M PRN IM DECREASED GLUCOSE; Start 04/09/17 at 14:00 Morphine Sulfate (morphine) 2 mg Q2H PRN IV PAIN LEVEL 4-7 Last administered on 04/13/17 22:25; Admin Dose 2 MG; Start 04/09/17 at 15:00 Morphine Sulfate (morphine) 4 mg Q4H PRN IV MODERATE PAIN LEVEL 4-6 Last administered on 04/10/17 20:35; Admin Dose 4 MG; Start 04/10/17 at 20:30 Acetaminophen/ Hydrocodone Bitart ([place] (10/325)) 1 tab Q4H PRN PO PAIN Last administered on 04/14/17 17:14; Admin Dose 1 TAB; Start 04/10/17 at 20:30 Amiodarone HCl (Cordarone) 100 mg DAILY PO Last administered on 04/15/17 08: 40; Admin Dose 100 MG; Start 04/11/17 at 09:00 Apixaban (Eliquis) 2.5 mg BID PO Last administered on 04/15/17 08:39; Admin Dose 2.5 MG; Start 04/11/17 at 21:00 Clopidogrel Bisulfate (plaVIX) 75 mg DAILY PO Last administered on 04/15/17 08:40; Admin Dose 75 MG; Start 04/11/17 at 15:00 Miscellaneous Information 1 ea NOTE XX ; Start 04/15/17 at 07:00 Assessment/Plan Chief Complaint/Hosp Course Patient is know to me form out pt with history of NE with PCI of RCA, SSS s/p st sayra PPM implantation, HTN, ESRD on HD, Severe PAD and Venous disease, HLD who presented to ER with Severe SOB, found to have white out of his right lung, likely PNA, s/p thoracocentesis with 250cc fluid only. No WBC, NO fever, Less likely this is Infection at this extent, I would get Contrast CT with [place]. Problems: Additional Assessment/Plan Continue cardiac care cy russell CT removed stable d/c planning out pt HUNTER Alvarez MD Apr 15, 2017 17:35
--- NOTE | 2017-04-15 17:56 | PN ---
Date/Time of Note Date/Time of Note DATE: 04/15/17 TIME: 17:51 Assessment/Plan VTE Prophylaxis VTE Prophylaxis Intervention: SCD's Lines/Catheters IV Catheter Type (from Nrsg): Mid Line Urinary Cath still in place: No Assessment/Plan Assessment/Plan 1. Acute hypoxic respiratory failure secondary to pleural effusion in right lung, s/p VATS 04.09.17- improving - Chest tube removed and patient doing well s/p chest tube. However patient continues to desaturate on room air and will check ABG on day of discharge to assess need for home O2 - No acute respiratory issues at this time. - Pulmonology on board and recommendations appreciated - CT surgery on board as well and appreciate consultation 2. Large Right pleural effusion s/p thoracentesis 03/30 - VATS done 04.09.17 - s/p chest tuber removal - CT surgery recommendations appreciated 3. Acute on chronic CHF - Last ECHO 10/2016 showed EF 65% with stage 1 diastolic dysfunction - Monitor I/O and daily weights - CXR shows cardiomegaly - Cardiology recs appreciated and will continue current management. okay with d/ c planning and outpatient follow up 4. ESRD on HD - patient on outpatient schedule - Nephrology consultation appreciated. will touch base when okay for discharge 5. Hypertensive urgency - BP controlled on home medications 6. DM, type 2 - Continue current management - ISS and accuchecks - A1c 6.9 7. Heart block/bradycardia with PPM - cardiology on board 8. CAD s/p stent 10/2016 - continue on home medications - on Plavix 9. Atrial fibrillation - on BB and eliquis - rate controlled 10. Constipation - bowel regime 11. Disposition - Will touch base with Nephrology when okay for d/c home - plans for d/c home with FWW and HH with PT Subjective 24 Hr Interval Summary Free Text/Dictation Patient doing well and no new complaints. Still plans to return home per son once discharged. Spoke to son on phone this am and informed him that working on d/c planning and HH with PT being arranged. no acute overnight events. Exam/Review of Systems Vital Signs Vitals Vital Signs Date Time Temp Pulse Resp B/P Pulse Ox O2 Delivery O2 Flow Rate FiO2 04/15/17 16:42 83 04/15/17 16:39 98 Nasal Cannula 2.0 04/15/17 15:47 98.1 18 127/58 04/12/17 08:30 28 Intake and Output 04/14/17 04/14/17 04/15/17 15:00 23:00 07:00 Intake Total 300 ml 250 ml 350 ml Output Total 2000 ml 40 ml Balance -1700 ml 210 ml 350 ml Exam General: Patient is laying in bed and answers questions appropriately. awake and in no acute distress Mentation: Patient is alert and oriented 4, Head: Normocephalic atraumatic Eyes: EOMI, pupils reactive to light Neck: Supple, nontender, midline Respiratory: equal chest rise. diminished breath sounds at bases, right greater than left Cardiovascular: regular rate, no obvious murmurs Gastrointestinal: non-tender to palpation, bowel sounds heard. Neurological: Moves all extremities spontaneously Skin: No new skin lesions Results Result Diagram: 04/15/17 0812 04/15/17 0812 Results 24 hrs Laboratory Tests Test 04/14/17 20:45 04/15/17 07:51 04/15/17 08:12 04/15/17 11:57 Bedside Glucose 153 208 168 White Blood Count 8.7 Red Blood Count 3.43 L Hemoglobin 8.7 L Hematocrit 29.0 L Mean Corpuscular Volume 84.5 Mean Corpuscular Hemoglobin 25.4 L Mean Corpuscular Hemoglobin Concent 30.0 L Red Cell Distribution Width 13.7 Platelet Count 279 Mean Platelet Volume 10.8 H Neutrophils % 74.0 Lymphocytes % 14.9 L Monocytes % 6.6 Eosinophils % 2.4 Basophils % 0.6 Nucleated Red Blood Cells % 0.0 Neutrophils # 6.4 Lymphocytes # 1.3 Monocytes # 0.6 Eosinophils # 0.2 Basophils # 0.1 Nucleated Red Blood Cells # 0.0 Sodium Level 135 Potassium Level 4.3 Chloride Level 96 L Carbon Dioxide Level 29 Anion Gap 14 Blood Urea Nitrogen 39 H Creatinine 6.09 H Glucose Level 210 Calcium Level 9.3 Phosphorus Level 4.8 Magnesium Level 2.2 Test 04/15/17 17:22 Bedside Glucose 160 Medications Medications Current Medications Atorvastatin Calcium (Lipitor) 80 mg QHS PO Last administered on 04/14/17 20: 45; Admin Dose 80 MG; Start 03/30/17 at 21:00 Bisacodyl (Dulcolax Supp) 10 mg Q24H PRN [place] CONSTIPATION Last administered on 04/14/17 17:13; Admin Dose 10 MG; Start 03/30/17 at 14:30 Lisinopril (Zestril) 2.5 mg BID PO Last administered on 04/15/17 08:39; Admin Dose 2.5 MG; Start 03/30/17 at 21:00 Metoprolol Tartrate (Lopressor) 50 mg BID PO Last administered on 04/15/17 08 :40; Admin Dose 50 MG; Start 03/30/17 at 21:00 Nifedipine (Procardia Xl) 60 mg DAILY PO Last administered on 04/15/17 10:56 ; Admin Dose 60 MG; Start 03/31/17 at 09:00 Ondansetron HCl (Zofran Inj) 4 mg Q6H PRN IV NAUSEA AND/OR VOMITING; Start at 15:30 Acetaminophen (Tylenol Tab) 650 mg Q6H PRN PO PAIN LEVEL 1-3 OR FEVER; Start 03/30/17 at 15:30 Diagnostic Test (Pha) (Accu-Chek) 1 ea 02 XX Last administered on 04/12/17 02 :36; Admin Dose 1 EA; Start 03/31/17 at 02:00 Glucose (Glutose) 15 gm Q15M PRN PO DECREASED GLUCOSE; Start 03/30/17 at 15:30 Glucose (Glutose) 22.5 gm Q15M PRN PO DECREASED GLUCOSE; Start 03/30/17 at 15: 30 Dextrose (D50w Syringe) 25 ml Q15M PRN IV DECREASED GLUCOSE; Start 03/30/17 at 15:30 Dextrose (D50w Syringe) 50 ml Q15M PRN IV DECREASED GLUCOSE; Start 03/30/17 at 15:30 Glucagon (Glucagen) 1 mg Q15M PRN IM DECREASED GLUCOSE; Start 03/30/17 at 15: 30 Glucose (Glutose) 15 gm Q15M PRN BUCCAL DECREASED GLUCOSE; Start 03/30/17 at 15:30 Guaifenesin/ Codeine Phosphate (Robitussin Ac Liquid Cup) 5 ml Q4H PRN PO cough ; Start 03/30/17 at 19:30 Lidocaine (Lmx 4% Plus) 1 applic PRN PRN TOP Prior to HD cannulation Last administered on 03/31/17 11:23; Admin Dose 1 APPLIC; Start 03/30/17 at 21:00 Pantoprazole (Protonix Tab) 40 mg DAILY@06 PO Last administered on 04/15/17 05:36; Admin Dose 40 MG; Start 04/01/17 at 06:00 Senna/Docusate Sodium (Senokot-S) 1 tab DAILY PO Last administered on 08:39; Admin Dose 1 TAB; Start 04/03/17 at 12:00 Mineral Oil (Fleet Mineral Oil Enema) 133 ml DAILY PRN [place] constipation Last administered on 04/05/17 16:41; Admin Dose 133 ML; Start 04/03/17 at 12:00 Insulin Glargine (Lantus) 16 unit QHS SC Last administered on 04/14/17 21:04 ; Admin Dose 16 UNIT; Start 04/09/17 at 21:00 Miscellaneous Information 1 ea NOTE XX ; Start 04/09/17 at 14:00 Glucagon (Glucagen) 1 mg Q15M PRN IM DECREASED GLUCOSE; Start 04/09/17 at 14:00 Morphine Sulfate (morphine) 2 mg Q2H PRN IV PAIN LEVEL 4-7 Last administered on 04/13/17 22:25; Admin Dose 2 MG; Start 04/09/17 at 15:00 Morphine Sulfate (morphine) 4 mg Q4H PRN IV MODERATE PAIN LEVEL 4-6 Last administered on 04/10/17 20:35; Admin Dose 4 MG; Start 04/10/17 at 20:30 Acetaminophen/ Hydrocodone Bitart ([place] (10/325)) 1 tab Q4H PRN PO PAIN Last administered on 04/14/17 17:14; Admin Dose 1 TAB; Start 04/10/17 at 20:30 Amiodarone HCl (Cordarone) 100 mg DAILY PO Last administered on 04/15/17 08: 40; Admin Dose 100 MG; Start 04/11/17 at 09:00 Apixaban (Eliquis) 2.5 mg BID PO Last administered on 04/15/17 08:39; Admin Dose 2.5 MG; Start 04/11/17 at 21:00 Clopidogrel Bisulfate (plaVIX) 75 mg DAILY PO Last administered on 04/15/17 08:40; Admin Dose 75 MG; Start 04/11/17 at 15:00 Miscellaneous Information 1 ea NOTE XX ; Start 04/15/17 at 07:00 JAE RAHMAN MD Apr 15, 2017 17:56
[2017-04-15] MEDS: ATORVASTATIN 80 MG TAB PO SCH (20:54)
[2017-04-15] MEDS: INSULIN GLARGINE [LANtus] 3 ML PEN SC SCH (20:58)
--- NOTE | 2017-04-15 23:29 | CONS ---
Date/Time of Note Date/Time of Note DATE: 04/15/17 TIME: 23:28 Assessment/Plan Assessment/Plan Additional Assessment/Plan 1. Acute hypoxic resp failure due to acute fluid overload and Pleural effusion 2. ESRD on HD -TTS schedule 3. Right hemithorax multiple loculated right pleural effusion s/p Thoracentesis 250 cc drained- pt has multiple pockets of loculated effusion 4. h/o CAD s/p CABG 5/ H/o recent DC and s/p stenting by 6/ HTN 7/ HL Plan: -s/p VATS with decortication, - s/p HD yesterday 1.7 L removed, HD ordered for tomorrow - we will keep him on Thursday schedule( his original schedule) will follow up Consultation Date/Type/Reason Admit Date/Time Mar 30, 2017 at 15:04 Initial Consult Date 03/30/17 Type of Consultation: NEPHROLOGY 24 HR Interval Summary Free Text/Dictation S/p HD yesterday no plan for HD today Exam/Review of Systems Vital Signs Vitals Vital Signs Date Time Temp Pulse Resp B/P Pulse Ox O2 Delivery O2 Flow Rate FiO2 04/15/17 21:10 2.0 04/15/17 21:08 76 20 98 Nasal Cannula 04/15/17 21:00 98.7 99/47 04/12/17 08:30 28 Intake and Output 04/14/17 04/14/17 04/15/17 15:00 23:00 07:00 Intake Total 300 ml 250 ml 350 ml Output Total 2000 ml 40 ml Balance -1700 ml 210 ml 350 ml Exam Constitutional: alert Respiratory: crackles/rales at bases, diminished breath sounds Cardiovascular: nl pulses, regular rate and rhythm Gastrointestinal: non-tender, soft Musculoskeletal: nl extremities to inspection Neurological: [employer] II-XII intact, nl mental status, nl speech Results Result Diagram: 04/15/17 0812 04/15/17 0812 Results 24 hrs Laboratory Tests Test 04/15/17 07:51 04/15/17 08:12 04/15/17 11:57 04/15/17 17:22 Bedside Glucose 208 168 160 White Blood Count 8.7 Red Blood Count 3.43 L Hemoglobin 8.7 L Hematocrit 29.0 L Mean Corpuscular Volume 84.5 Mean Corpuscular Hemoglobin 25.4 L Mean Corpuscular Hemoglobin Concent 30.0 L Red Cell Distribution Width 13.7 Platelet Count 279 Mean Platelet Volume 10.8 H Neutrophils % 74.0 Lymphocytes % 14.9 L Monocytes % 6.6 Eosinophils % 2.4 Basophils % 0.6 Nucleated Red Blood Cells % 0.0 Neutrophils # 6.4 Lymphocytes # 1.3 Monocytes # 0.6 Eosinophils # 0.2 Basophils # 0.1 Nucleated Red Blood Cells # 0.0 Sodium Level 135 Potassium Level 4.3 Chloride Level 96 L Carbon Dioxide Level 29 Anion Gap 14 Blood Urea Nitrogen 39 H Creatinine 6.09 H Glucose Level 210 Calcium Level 9.3 Phosphorus Level 4.8 Magnesium Level 2.2 Test 04/15/17 20:23 Bedside Glucose 148 Medications Medications Current Medications Atorvastatin Calcium (Lipitor) 80 mg QHS PO Last administered on 04/15/17 20: 54; Admin Dose 80 MG; Start 03/30/17 at 21:00 Bisacodyl (Dulcolax Supp) 10 mg Q24H PRN [place] CONSTIPATION Last administered on 04/14/17 17:13; Admin Dose 10 MG; Start 03/30/17 at 14:30 Lisinopril (Zestril) 2.5 mg BID PO Last administered on 04/15/17 08:39; Admin Dose 2.5 MG; Start 03/30/17 at 21:00 Metoprolol Tartrate (Lopressor) 50 mg BID PO Last administered on 04/15/17 08 :40; Admin Dose 50 MG; Start 03/30/17 at 21:00 Nifedipine (Procardia Xl) 60 mg DAILY PO Last administered on 04/15/17 10:56 ; Admin Dose 60 MG; Start 03/31/17 at 09:00 Ondansetron HCl (Zofran Inj) 4 mg Q6H PRN IV NAUSEA AND/OR VOMITING; Start at 15:30 Acetaminophen (Tylenol Tab) 650 mg Q6H PRN PO PAIN LEVEL 1-3 OR FEVER; Start 03/30/17 at 15:30 Diagnostic Test (Pha) (Accu-Chek) 1 ea 02 XX Last administered on 04/12/17 02 :36; Admin Dose 1 EA; Start 03/31/17 at 02:00 Glucose (Glutose) 15 gm Q15M PRN PO DECREASED GLUCOSE; Start 03/30/17 at 15:30 Glucose (Glutose) 22.5 gm Q15M PRN PO DECREASED GLUCOSE; Start 03/30/17 at 15: 30 Dextrose (D50w Syringe) 25 ml Q15M PRN IV DECREASED GLUCOSE; Start 03/30/17 at 15:30 Dextrose (D50w Syringe) 50 ml Q15M PRN IV DECREASED GLUCOSE; Start 03/30/17 at 15:30 Glucagon (Glucagen) 1 mg Q15M PRN IM DECREASED GLUCOSE; Start 03/30/17 at 15: 30 Glucose (Glutose) 15 gm Q15M PRN BUCCAL DECREASED GLUCOSE; Start 03/30/17 at 15:30 Guaifenesin/ Codeine Phosphate (Robitussin Ac Liquid Cup) 5 ml Q4H PRN PO cough ; Start 03/30/17 at 19:30 Lidocaine (Lmx 4% Plus) 1 applic PRN PRN TOP Prior to HD cannulation Last administered on 03/31/17 11:23; Admin Dose 1 APPLIC; Start 03/30/17 at 21:00 Pantoprazole (Protonix Tab) 40 mg DAILY@06 PO Last administered on 04/15/17 05:36; Admin Dose 40 MG; Start 04/01/17 at 06:00 Senna/Docusate Sodium (Senokot-S) 1 tab DAILY PO Last administered on 08:39; Admin Dose 1 TAB; Start 04/03/17 at 12:00 Mineral Oil (Fleet Mineral Oil Enema) 133 ml DAILY PRN [place] constipation Last administered on 04/05/17 16:41; Admin Dose 133 ML; Start 04/03/17 at 12:00 Insulin Glargine (Lantus) 16 unit QHS SC Last administered on 04/15/17 20:58 ; Admin Dose 16 UNIT; Start 04/09/17 at 21:00 Miscellaneous Information 1 ea NOTE XX ; Start 04/09/17 at 14:00 Glucagon (Glucagen) 1 mg Q15M PRN IM DECREASED GLUCOSE; Start 04/09/17 at 14:00 Morphine Sulfate (morphine) 2 mg Q2H PRN IV PAIN LEVEL 4-7 Last administered on 04/13/17 22:25; Admin Dose 2 MG; Start 04/09/17 at 15:00 Morphine Sulfate (morphine) 4 mg Q4H PRN IV MODERATE PAIN LEVEL 4-6 Last administered on 04/10/17 20:35; Admin Dose 4 MG; Start 04/10/17 at 20:30 Acetaminophen/ Hydrocodone Bitart ([place] (10/325)) 1 tab Q4H PRN PO PAIN Last administered on 04/14/17 17:14; Admin Dose 1 TAB; Start 04/10/17 at 20:30 Amiodarone HCl (Cordarone) 100 mg DAILY PO Last administered on 04/15/17 08: 40; Admin Dose 100 MG; Start 04/11/17 at 09:00 Apixaban (Eliquis) 2.5 mg BID PO Last administered on 04/15/17 20:54; Admin Dose 2.5 MG; Start 04/11/17 at 21:00 Clopidogrel Bisulfate (plaVIX) 75 mg DAILY PO Last administered on 04/15/17 08:40; Admin Dose 75 MG; Start 04/11/17 at 15:00 Miscellaneous Information 1 ea NOTE XX ; Start 04/15/17 at 07:00 RAYNE FITCH MD Apr 15, 2017 23:29
[2017-04-16] VITALS (20 sets, daily range): BP systolic 85–139; BP diastolic 39–63; PULSE 69–91; RESP 16–17
[2017-04-16] MEDS: ACCU-CHEK XX SCH (02:00)
[2017-04-16] MEDS: PANTOPRAZOLE (EC) 40 MG TAB PO SCH (05:32)
[2017-04-16 06:50] LABS: BASOPHIL # 0.1 10^3/ul (0.0-0.1); BASOPHILS % 0.6 % (0.0-2.0); EOSINOPHILS # 0.2 10^3/ul (0.0-0.5); EOSINOPHILS % 2.9 % (0.0-7.0); HEMATOCRIT 26.2 % (42.0-52.0); HEMOGLOBIN 8.1 g/dl (14.0-18.0); LYMPHOCYTES # 1.6 10^3/ul (0.8-2.9); LYMPHOCYTES % 20.1 % (15.0-51.0); MEAN CORPUSCULAR HGB CONC 30.9 g/dl (32.0-37.0); MEAN PLATELET VOLUME 10.6 fl (7.4-10.4); MONOCYTE # 0.7 10^3/ul (0.3-0.9); MONOCYTES % 8.6 % (0.0-11.0); NEUTROPHIL # 5.4 10^3/ul (1.6-7.5); NEUTROPHILS % 66.3 % (39.0-77.0); PLATELET COUNT 258 10^3/UL (140-415); RED BLOOD COUNT 3.12 10^6/ul (4.70-6.10); RED CELL DISTRIBUTION WIDTH 13.6 % (11.5-14.5); WHITE BLOOD COUNT 8.1 10^3/ul (4.8-10.8)
[2017-04-16 08:02] LABS: ALBUMIN 2.5 g/dl (3.3-4.9); CALCIUM 8.9 mg/dl (8.4-10.2); CREATININE 7.44 mg/dl (0.61-1.24); MAGNESIUM 2.2 mg/dl (1.7-2.5); PHOSPHORUS 5.3 mg/dl (2.5-4.9); POTASSIUM 4.4 mmol/L (3.5-5.1)
[2017-04-16] MEDS: INSULIN ASPART [NOVOLOG] 3 ML PEN SC SCH ×7 (09:00→20:41)
[2017-04-16] MEDS: SEVELAMER CARBONATE 0.8 GM PKT PO SCH ×3 (09:07→18:00)
[2017-04-16] MEDS: SENNA/DOCUSATE NA (8.6MG/50MG) TAB PO SCH (09:07)
[2017-04-16] MEDS: ALBUTEROL 0.083% (NEB) 2.5 MG/3 ML AMP HHN SCH ×4 (09:22→20:48)
--- NOTE | 2017-04-16 12:08 | PN ---
Date/Time of Note Date/Time of Note DATE: 04/16/17 TIME: 12:08 Assessment/Plan VTE Prophylaxis VTE Prophylaxis Intervention: SCD's Lines/Catheters IV Catheter Type (from Nrsg): Mid Line Urinary Cath still in place: No Assessment/Plan Assessment/Plan 1. Acute hypoxic respiratory failure secondary to pleural effusion in right lung, s/p VATS 04.09.17- resolving - Chest tube removed and patient doing well s/p chest tube. However patient continues to desaturate on room air and will check ABG today to assess need for home O2 - No acute respiratory issues at this time. - Pulmonology on board and recommendations appreciated - CT surgery on board as well and appreciate consultation 2. Large Right pleural effusion s/p thoracentesis 03/30 - VATS done 04.09.17 - s/p chest tuber removal - CT surgery recommendations appreciated 3. Acute on chronic CHF - Last ECHO 10/2016 showed EF 65% with stage 1 diastolic dysfunction - Monitor I/O and daily weights - CXR shows cardiomegaly - Cardiology recs appreciated and will continue current management. okay with d/ c planning and outpatient follow up 4. ESRD on HD - patient on outpatient schedule - Nephrology consultation appreciated. will touch base when okay for discharge 5. Hypertensive urgency - BP controlled on home medications 6. DM, type 2 - Continue current management - ISS and accuchecks - A1c 6.9 7. Heart block/bradycardia with PPM - cardiology on board 8. CAD s/p stent 10/2016 - continue on home medications - on Plavix 9. Atrial fibrillation - on BB and eliquis - rate controlled 10. Constipation - bowel regime 11. Disposition - plans for d/c home with FWW and HH with PT - Assessing for home O2 Subjective 24 Hr Interval Summary Free Text/Dictation Patient doing well and in no acute distress. Denies any new complaints and no acute overnight events. at bedside and appreciative of care. Exam/Review of Systems Vital Signs Vitals Vital Signs Date Time Temp Pulse Resp B/P Pulse Ox O2 Delivery O2 Flow Rate FiO2 04/16/17 11:48 Nasal Cannula 2.0 04/16/17 11:33 98.7 73 17 107/50 99 04/12/17 08:30 28 Intake and Output 04/15/17 04/15/17 04/16/17 15:00 23:00 07:00 Intake Total 600 ml 400 ml Balance 600 ml 400 ml Exam General: Patient is laying in bed and answers questions appropriately. awake and in no acute distress Mentation: Patient is alert and oriented 4, Head: Normocephalic atraumatic Eyes: EOMI, pupils reactive to light Neck: Supple, nontender, midline Respiratory: equal chest rise. diminished breath sounds at bases, right greater than left Cardiovascular: regular rate, no obvious murmurs Gastrointestinal: non-tender to palpation, bowel sounds heard. Neurological: Moves all extremities spontaneously Skin: No new skin lesions Results Result Diagram: 04/16/17 0630 04/16/17 0630 Results 24 hrs Laboratory Tests Test 04/15/17 17:22 04/15/17 20:23 04/16/17 02:36 04/16/17 06:30 Bedside Glucose 160 148 182 White Blood Count 8.1 Red Blood Count 3.12 L Hemoglobin 8.1 L Hematocrit 26.2 L Mean Corpuscular Volume 84.0 Mean Corpuscular Hemoglobin 26.0 L Mean Corpuscular Hemoglobin Concent 30.9 L Red Cell Distribution Width 13.6 Platelet Count 258 Mean Platelet Volume 10.6 H Neutrophils % 66.3 Lymphocytes % 20.1 Monocytes % 8.6 Eosinophils % 2.9 Basophils % 0.6 Nucleated Red Blood Cells % 0.0 Neutrophils # 5.4 Lymphocytes # 1.6 Monocytes # 0.7 Eosinophils # 0.2 Basophils # 0.1 Nucleated Red Blood Cells # 0.0 Sodium Level 133 L Potassium Level 4.4 Chloride Level 95 L Carbon Dioxide Level 26 Anion Gap 16 Blood Urea Nitrogen 60 H Creatinine 7.44 H Glucose Level 183 Calcium Level 8.9 Phosphorus Level 5.3 H Magnesium Level 2.2 Albumin 2.5 L Test 04/16/17 08:53 Bedside Glucose 172 Medications Medications Current Medications Atorvastatin Calcium (Lipitor) 80 mg QHS PO Last administered on 04/15/17 20: 54; Admin Dose 80 MG; Start 03/30/17 at 21:00 Bisacodyl (Dulcolax Supp) 10 mg Q24H PRN [place] CONSTIPATION Last administered on 04/14/17 17:13; Admin Dose 10 MG; Start 03/30/17 at 14:30 Lisinopril (Zestril) 2.5 mg BID PO Last administered on 04/15/17 08:39; Admin Dose 2.5 MG; Start 03/30/17 at 21:00 Metoprolol Tartrate (Lopressor) 50 mg BID PO Last administered on 04/15/17 08 :40; Admin Dose 50 MG; Start 03/30/17 at 21:00 Nifedipine (Procardia Xl) 60 mg DAILY PO Last administered on 04/15/17 10:56 ; Admin Dose 60 MG; Start 03/31/17 at 09:00 Ondansetron HCl (Zofran Inj) 4 mg Q6H PRN IV NAUSEA AND/OR VOMITING; Start at 15:30 Acetaminophen (Tylenol Tab) 650 mg Q6H PRN PO PAIN LEVEL 1-3 OR FEVER; Start 03/30/17 at 15:30 Diagnostic Test (Pha) (Accu-Chek) 1 ea 02 XX Last administered on 04/12/17 02 :36; Admin Dose 1 EA; Start 03/31/17 at 02:00 Glucose (Glutose) 15 gm Q15M PRN PO DECREASED GLUCOSE; Start 03/30/17 at 15:30 Glucose (Glutose) 22.5 gm Q15M PRN PO DECREASED GLUCOSE; Start 03/30/17 at 15: 30 Dextrose (D50w Syringe) 25 ml Q15M PRN IV DECREASED GLUCOSE; Start 03/30/17 at 15:30 Dextrose (D50w Syringe) 50 ml Q15M PRN IV DECREASED GLUCOSE; Start 03/30/17 at 15:30 Glucagon (Glucagen) 1 mg Q15M PRN IM DECREASED GLUCOSE; Start 03/30/17 at 15: 30 Glucose (Glutose) 15 gm Q15M PRN BUCCAL DECREASED GLUCOSE; Start 03/30/17 at 15:30 Guaifenesin/ Codeine Phosphate (Robitussin Ac Liquid Cup) 5 ml Q4H PRN PO cough ; Start 03/30/17 at 19:30 Lidocaine (Lmx 4% Plus) 1 applic PRN PRN TOP Prior to HD cannulation Last administered on 03/31/17 11:23; Admin Dose 1 APPLIC; Start 03/30/17 at 21:00 Pantoprazole (Protonix Tab) 40 mg DAILY@06 PO Last administered on 04/16/17 05:32; Admin Dose 40 MG; Start 04/01/17 at 06:00 Senna/Docusate Sodium (Senokot-S) 1 tab DAILY PO Last administered on 09:07; Admin Dose 1 TAB; Start 04/03/17 at 12:00 Mineral Oil (Fleet Mineral Oil Enema) 133 ml DAILY PRN [place] constipation Last administered on 04/05/17 16:41; Admin Dose 133 ML; Start 04/03/17 at 12:00 Insulin Glargine (Lantus) 16 unit QHS SC Last administered on 04/15/17 20:58 ; Admin Dose 16 UNIT; Start 04/09/17 at 21:00 Miscellaneous Information 1 ea NOTE XX ; Start 04/09/17 at 14:00 Glucagon (Glucagen) 1 mg Q15M PRN IM DECREASED GLUCOSE; Start 04/09/17 at 14:00 Morphine Sulfate (morphine) 2 mg Q2H PRN IV PAIN LEVEL 4-7 Last administered on 04/13/17 22:25; Admin Dose 2 MG; Start 04/09/17 at 15:00 Morphine Sulfate (morphine) 4 mg Q4H PRN IV MODERATE PAIN LEVEL 4-6 Last administered on 04/10/17 20:35; Admin Dose 4 MG; Start 04/10/17 at 20:30 Acetaminophen/ Hydrocodone Bitart ([place] (10/325)) 1 tab Q4H PRN PO PAIN Last administered on 04/14/17 17:14; Admin Dose 1 TAB; Start 04/10/17 at 20:30 Amiodarone HCl (Cordarone) 100 mg DAILY PO Last administered on 04/15/17 08: 40; Admin Dose 100 MG; Start 04/11/17 at 09:00 Apixaban (Eliquis) 2.5 mg BID PO Last administered on 04/15/17 20:54; Admin Dose 2.5 MG; Start 04/11/17 at 21:00 Clopidogrel Bisulfate (plaVIX) 75 mg DAILY PO Last administered on 04/15/17 08:40; Admin Dose 75 MG; Start 04/11/17 at 15:00 Miscellaneous Information 1 ea NOTE XX ; Start 04/15/17 at 07:00 JAE RAHMAN MD Apr 16, 2017 12:08
--- NOTE | 2017-04-16 12:33 | CONS ---
Date/Time of Note Date/Time of Note DATE: 04/16/17 TIME: 12:32 Consult Date/Type/Reason Admit Date/Time Mar 30, 2017 at 15:04 Initial Consult Date 03/30/17 Type of Consultation: Pulm Subjective Comfortable, still has moderate weakness. Objective Vital Signs Date Time Temp Pulse Resp B/P Pulse Ox O2 Delivery O2 Flow Rate FiO2 04/16/17 12:06 72 04/16/17 11:48 Nasal Cannula 2.0 04/16/17 11:33 98.7 17 107/50 99 04/12/17 08:30 28 Intake and Output 04/15/17 04/15/17 04/16/17 15:00 23:00 07:00 Intake Total 600 ml 400 ml Balance 600 ml 400 ml Exam GENERAL: elderly gentleman, comfortable at rest VITAL SIGNS: per chart NECK: Supple. No JVD or lymphadenopathy. CARDIAC EXAM: S1, S2. No added sounds or murmurs. CHEST: Diminished air entry bilaterally R> L ABDOMEN: Soft, nontender. No guarding or rebound. EXTREMITIES: No cyanosis, clubbing or edema. NEUROLOGIC: Generalized weakness. No focal deficits. Results/Medications Result Diagram: 04/16/17 0630 04/16/17 0630 Results 24 hrs Laboratory Tests Test 04/15/17 17:22 04/15/17 20:23 04/16/17 02:36 04/16/17 06:30 Bedside Glucose 160 148 182 White Blood Count 8.1 Red Blood Count 3.12 L Hemoglobin 8.1 L Hematocrit 26.2 L Mean Corpuscular Volume 84.0 Mean Corpuscular Hemoglobin 26.0 L Mean Corpuscular Hemoglobin Concent 30.9 L Red Cell Distribution Width 13.6 Platelet Count 258 Mean Platelet Volume 10.6 H Neutrophils % 66.3 Lymphocytes % 20.1 Monocytes % 8.6 Eosinophils % 2.9 Basophils % 0.6 Nucleated Red Blood Cells % 0.0 Neutrophils # 5.4 Lymphocytes # 1.6 Monocytes # 0.7 Eosinophils # 0.2 Basophils # 0.1 Nucleated Red Blood Cells # 0.0 Sodium Level 133 L Potassium Level 4.4 Chloride Level 95 L Carbon Dioxide Level 26 Anion Gap 16 Blood Urea Nitrogen 60 H Creatinine 7.44 H Glucose Level 183 Calcium Level 8.9 Phosphorus Level 5.3 H Magnesium Level 2.2 Albumin 2.5 L Test 04/16/17 08:53 Bedside Glucose 172 Medications Current Medications Atorvastatin Calcium (Lipitor) 80 mg QHS PO Last administered on 04/15/17 20: 54; Admin Dose 80 MG; Start 03/30/17 at 21:00 Bisacodyl (Dulcolax Supp) 10 mg Q24H PRN [place] CONSTIPATION Last administered on 04/14/17 17:13; Admin Dose 10 MG; Start 03/30/17 at 14:30 Lisinopril (Zestril) 2.5 mg BID PO Last administered on 04/15/17 08:39; Admin Dose 2.5 MG; Start 03/30/17 at 21:00 Metoprolol Tartrate (Lopressor) 50 mg BID PO Last administered on 04/15/17 08 :40; Admin Dose 50 MG; Start 03/30/17 at 21:00 Nifedipine (Procardia Xl) 60 mg DAILY PO Last administered on 04/15/17 10:56 ; Admin Dose 60 MG; Start 03/31/17 at 09:00 Ondansetron HCl (Zofran Inj) 4 mg Q6H PRN IV NAUSEA AND/OR VOMITING; Start at 15:30 Acetaminophen (Tylenol Tab) 650 mg Q6H PRN PO PAIN LEVEL 1-3 OR FEVER; Start 03/30/17 at 15:30 Diagnostic Test (Pha) (Accu-Chek) 1 ea 02 XX Last administered on 04/12/17 02 :36; Admin Dose 1 EA; Start 03/31/17 at 02:00 Glucose (Glutose) 15 gm Q15M PRN PO DECREASED GLUCOSE; Start 03/30/17 at 15:30 Glucose (Glutose) 22.5 gm Q15M PRN PO DECREASED GLUCOSE; Start 03/30/17 at 15: 30 Dextrose (D50w Syringe) 25 ml Q15M PRN IV DECREASED GLUCOSE; Start 03/30/17 at 15:30 Dextrose (D50w Syringe) 50 ml Q15M PRN IV DECREASED GLUCOSE; Start 03/30/17 at 15:30 Glucagon (Glucagen) 1 mg Q15M PRN IM DECREASED GLUCOSE; Start 03/30/17 at 15: 30 Glucose (Glutose) 15 gm Q15M PRN BUCCAL DECREASED GLUCOSE; Start 03/30/17 at 15:30 Guaifenesin/ Codeine Phosphate (Robitussin Ac Liquid Cup) 5 ml Q4H PRN PO cough ; Start 03/30/17 at 19:30 Lidocaine (Lmx 4% Plus) 1 applic PRN PRN TOP Prior to HD cannulation Last administered on 03/31/17 11:23; Admin Dose 1 APPLIC; Start 03/30/17 at 21:00 Pantoprazole (Protonix Tab) 40 mg DAILY@06 PO Last administered on 04/16/17 05:32; Admin Dose 40 MG; Start 04/01/17 at 06:00 Senna/Docusate Sodium (Senokot-S) 1 tab DAILY PO Last administered on 09:07; Admin Dose 1 TAB; Start 04/03/17 at 12:00 Mineral Oil (Fleet Mineral Oil Enema) 133 ml DAILY PRN [place] constipation Last administered on 04/05/17 16:41; Admin Dose 133 ML; Start 04/03/17 at 12:00 Insulin Glargine (Lantus) 16 unit QHS SC Last administered on 04/15/17 20:58 ; Admin Dose 16 UNIT; Start 04/09/17 at 21:00 Miscellaneous Information 1 ea NOTE XX ; Start 04/09/17 at 14:00 Glucagon (Glucagen) 1 mg Q15M PRN IM DECREASED GLUCOSE; Start 04/09/17 at 14:00 Morphine Sulfate (morphine) 2 mg Q2H PRN IV PAIN LEVEL 4-7 Last administered on 04/13/17 22:25; Admin Dose 2 MG; Start 04/09/17 at 15:00 Morphine Sulfate (morphine) 4 mg Q4H PRN IV MODERATE PAIN LEVEL 4-6 Last administered on 04/10/17 20:35; Admin Dose 4 MG; Start 04/10/17 at 20:30 Acetaminophen/ Hydrocodone Bitart ([place] (10/325)) 1 tab Q4H PRN PO PAIN Last administered on 04/14/17 17:14; Admin Dose 1 TAB; Start 04/10/17 at 20:30 Amiodarone HCl (Cordarone) 100 mg DAILY PO Last administered on 04/15/17 08: 40; Admin Dose 100 MG; Start 04/11/17 at 09:00 Apixaban (Eliquis) 2.5 mg BID PO Last administered on 04/15/17 20:54; Admin Dose 2.5 MG; Start 04/11/17 at 21:00 Clopidogrel Bisulfate (plaVIX) 75 mg DAILY PO Last administered on 04/15/17 08:40; Admin Dose 75 MG; Start 04/11/17 at 15:00 Miscellaneous Information 1 ea NOTE XX ; Start 04/15/17 at 07:00 Assessment/Plan Chief Complaint/Hosp Course IMP: 1. Massive right lymphocytic/neutrophilic-predominant exudative effusion--s/p VATS . minimal effusion. 2. ESRD on HD RECS: 1. F/U pleural fluid studies and pleural bx 2. stable following chest tube removal. dc planning Problems: [facility]AK[facility], [facility] Apr 16, 2017 12:33
[2017-04-16] MEDS ORDERED: AMIO200T2 PO (14:04)
[2017-04-16] MEDS ORDERED: LANT3I SC (14:04)
--- NOTE | 2017-04-16 14:06 | PDOCDIS ---
Discharge Instructions DIAGNOSIS Discharge Diagnosis 1. Acute hypoxic respiratory failure secondary to pleural effusion in right lung, s/p VATS 12.7.17- improving 2. Large Right pleural effusion s/p thoracentesis 03/30 3. Acute on chronic CHF 4. ESRD on HD 5. Hypertensive urgency 6. DM, type 2 7. Heart block/bradycardia with PPM 8. CAD s/p stent 10/2016 9. Atrial fibrillation 10. Constipation CONDITION Patient Condition: Fair HOME CARE INSTRUCTIONS: Special Diet: RENAL DIET ACTIVITY: Activity Restrictions: Avoid heavy lifting Special Exercises FOLLOW UP/APPOINTMENTS Follow-up Plan 1. Follow up with your primary care physician in 1 week 2. Continue with dialysis as previously scheduled 3. Follow up with [employer] 1-2 weeks after discharge 4. continue taking all medications as prescribed 5. Follow up with [employer] to continue to assess need for home oxygen 6. You will need to use 2L of oxygen 7. If symptoms return, please return to the ED REFERRALS Other Referrals Willie Huerta MD Specialty: Nephrology Office Address [address] [place] [address] Office Denis De Jesus MD Specialty: Critical Care Medicine Office Address [address] [place] [id number] Office JAE RAHMAN MD Apr 16, 2017 14:06
[2017-04-16 15:12] LABS: AADO2 Arterial 41.3 mmHg (7.0-24.0); Allen Test ACCEPTAB; Arterial Base Excess 2.9 mmol/L (-3.0-3); Arterial COHb 0.6 % (0.0-3.0); Arterial HCO3 27.6 mmol/L (22.0-26.0); Arterial MetHb 0.3 % (0.0-1.5); Arterial Total Hemglobin 10.3 g/dl (12.0-18.0); MODE ROOM AIR
[2017-04-16] MEDS: METOPROLOL 50 MG TAB PO SCH ×2 (17:28→20:39)
[2017-04-16] MEDS: LISINOPRIL 5 MG TAB PO SCH ×2 (17:29→20:38)
[2017-04-16] MEDS: CLOPIDOGREL 75 MG TAB PO SCH (17:29)
[2017-04-16] MEDS: NIFEdipine (XL) 60 MG TAB PO SCH (17:30)
[2017-04-16] MEDS: AMIODARONE 200 MG TAB PO SCH (17:30)
[2017-04-16] MEDS: APIXABAN 5 MG TABLET PO SCH ×2 (17:31→20:38)
[2017-04-16] MEDS: ATORVASTATIN 80 MG TAB PO SCH (20:38)
[2017-04-16] MEDS: INSULIN GLARGINE [LANtus] 3 ML PEN SC SCH (21:33)
--- NOTE | 2017-04-16 22:15 | CONS ---
Date/Time of Note Date/Time of Note DATE: 04/16/17 TIME: 22:14 Consultation Date/Type/Reason Admit Date/Time Mar 30, 2017 at 15:04 Initial Consult Date 03/30/17 Type of Consultation: NEPHROLOGY 24 HR Interval Summary Free Text/Dictation oxygen saturation low with ambulatino, S/p HD today 1.7 L removed Exam/Review of Systems Vital Signs Vitals Vital Signs Date Time Temp Pulse Resp B/P Pulse Ox O2 Delivery O2 Flow Rate FiO2 04/16/17 20:56 80 98 04/16/17 20:48 2.0 04/16/17 20:48 18 Nasal Cannula 04/16/17 20:17 98.1 114/53 04/12/17 08:30 28 Intake and Output 04/15/17 04/15/17 04/16/17 15:00 23:00 07:00 Intake Total 600 ml 400 ml Balance 600 ml 400 ml Exam Constitutional: alert Respiratory: crackles/rales, diminished breath sounds, Cardiovascular: nl pulses, regular rate and rhythm Gastrointestinal: non-tender, soft Musculoskeletal: nl extremities to inspection 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, nl mental status, nl speech Results Result Diagram: 04/16/17 0630 04/16/17 0630 Results 24 hrs Laboratory Tests Test 04/16/17 02:36 04/16/17 06:30 04/16/17 08:53 04/16/17 13:00 Bedside Glucose 182 172 128 White Blood Count 8.1 Red Blood Count 3.12 L Hemoglobin 8.1 L Hematocrit 26.2 L Mean Corpuscular Volume 84.0 Mean Corpuscular Hemoglobin 26.0 L Mean Corpuscular Hemoglobin Concent 30.9 L Red Cell Distribution Width 13.6 Platelet Count 258 Mean Platelet Volume 10.6 H Neutrophils % 66.3 Lymphocytes % 20.1 Monocytes % 8.6 Eosinophils % 2.9 Basophils % 0.6 Nucleated Red Blood Cells % 0.0 Neutrophils # 5.4 Lymphocytes # 1.6 Monocytes # 0.7 Eosinophils # 0.2 Basophils # 0.1 Nucleated Red Blood Cells # 0.0 Sodium Level 133 L Potassium Level 4.4 Chloride Level 95 L Carbon Dioxide Level 26 Anion Gap 16 Blood Urea Nitrogen 60 H Creatinine 7.44 H Glucose Level 183 Calcium Level 8.9 Phosphorus Level 5.3 H Magnesium Level 2.2 Albumin 2.5 L Test 04/16/17 13:58 04/16/17 18:06 04/16/17 20:40 Blood Gas Specimen Source Blood arterial Arterial Blood Date Drawn 04/16/2017 3:00:10 PM Arterial Blood pH (Temp corrected) 7.426 Arterial Blood pCO2 (Temp correct) 42.9 Arterial Blood pO2 (Temp corrected) 57.1 L Arterial Blood HCO3 27.6 H Arterial Blood Base Excess 2.9 Arterial Blood Oxygen Saturation 89.8 L Baldev Test ACCEPTAB Arterial Blood Gas Puncture Site Right Radial Arterial Blood Carboxyhemoglobin 0.6 Arterial Blood Methemoglobin 0.3 Blood Gas A-a O2 Differential 41.3 H Oxyhemoglobin Percent 89.0 L Total Hemoglobin 10.3 L Blood Gas Temperature 37.0 Blood Gas Modality ROOM AIR FiO2 21.0 Blood Gas Notified Whom [place] Blood Gas Notified Time 04/16/2017 3:12:31 PM Bedside Glucose 200 124 Medications Medications Current Medications Atorvastatin Calcium (Lipitor) 80 mg QHS PO Last administered on 04/16/17 20: 38; Admin Dose 80 MG; Start 03/30/17 at 21:00 Bisacodyl (Dulcolax Supp) 10 mg Q24H PRN [place] CONSTIPATION Last administered on 04/14/17 17:13; Admin Dose 10 MG; Start 03/30/17 at 14:30 Lisinopril (Zestril) 2.5 mg BID PO Last administered on 04/16/17 20:38; Admin Dose 2.5 MG; Start 03/30/17 at 21:00 Metoprolol Tartrate (Lopressor) 50 mg BID PO Last administered on 04/16/17 20 :39; Admin Dose 50 MG; Start 03/30/17 at 21:00 Nifedipine (Procardia Xl) 60 mg DAILY PO Last administered on 04/16/17 17:30 ; Admin Dose 60 MG; Start 03/31/17 at 09:00 Ondansetron HCl (Zofran Inj) 4 mg Q6H PRN IV NAUSEA AND/OR VOMITING; Start at 15:30 Acetaminophen (Tylenol Tab) 650 mg Q6H PRN PO PAIN LEVEL 1-3 OR FEVER; Start 03/30/17 at 15:30 Diagnostic Test (Pha) (Accu-Chek) 1 ea 02 XX Last administered on 04/12/17 02 :36; Admin Dose 1 EA; Start 03/31/17 at 02:00 Glucose (Glutose) 15 gm Q15M PRN PO DECREASED GLUCOSE; Start 03/30/17 at 15:30 Glucose (Glutose) 22.5 gm Q15M PRN PO DECREASED GLUCOSE; Start 03/30/17 at 15: 30 Dextrose (D50w Syringe) 25 ml Q15M PRN IV DECREASED GLUCOSE; Start 03/30/17 at 15:30 Dextrose (D50w Syringe) 50 ml Q15M PRN IV DECREASED GLUCOSE; Start 03/30/17 at 15:30 Glucagon (Glucagen) 1 mg Q15M PRN IM DECREASED GLUCOSE; Start 03/30/17 at 15: 30 Glucose (Glutose) 15 gm Q15M PRN BUCCAL DECREASED GLUCOSE; Start 03/30/17 at 15:30 Guaifenesin/ Codeine Phosphate (Robitussin Ac Liquid Cup) 5 ml Q4H PRN PO cough ; Start 03/30/17 at 19:30 Lidocaine (Lmx 4% Plus) 1 applic PRN PRN TOP Prior to HD cannulation Last administered on 03/31/17 11:23; Admin Dose 1 APPLIC; Start 03/30/17 at 21:00 Pantoprazole (Protonix Tab) 40 mg DAILY@06 PO Last administered on 04/16/17 05:32; Admin Dose 40 MG; Start 04/01/17 at 06:00 Senna/Docusate Sodium (Senokot-S) 1 tab DAILY PO Last administered on 09:07; Admin Dose 1 TAB; Start 04/03/17 at 12:00 Mineral Oil (Fleet Mineral Oil Enema) 133 ml DAILY PRN [place] constipation Last administered on 04/05/17 16:41; Admin Dose 133 ML; Start 04/03/17 at 12:00 Insulin Glargine (Lantus) 16 unit QHS SC Last administered on 04/16/17 21:33 ; Admin Dose 16 UNIT; Start 04/09/17 at 21:00 Miscellaneous Information 1 ea NOTE XX ; Start 04/09/17 at 14:00 Glucagon (Glucagen) 1 mg Q15M PRN IM DECREASED GLUCOSE; Start 04/09/17 at 14:00 Morphine Sulfate (morphine) 2 mg Q2H PRN IV PAIN LEVEL 4-7 Last administered on 04/13/17 22:25; Admin Dose 2 MG; Start 04/09/17 at 15:00 Morphine Sulfate (morphine) 4 mg Q4H PRN IV MODERATE PAIN LEVEL 4-6 Last administered on 04/10/17 20:35; Admin Dose 4 MG; Start 04/10/17 at 20:30 Acetaminophen/ Hydrocodone Bitart ([place] (10/325)) 1 tab Q4H PRN PO PAIN Last administered on 04/14/17 17:14; Admin Dose 1 TAB; Start 04/10/17 at 20:30 Amiodarone HCl (Cordarone) 100 mg DAILY PO Last administered on 04/16/17 17: 30; Admin Dose 100 MG; Start 04/11/17 at 09:00 Apixaban (Eliquis) 2.5 mg BID PO Last administered on 04/16/17 20:38; Admin Dose 2.5 MG; Start 04/11/17 at 21:00 Clopidogrel Bisulfate (plaVIX) 75 mg DAILY PO Last administered on 04/16/17 17:29; Admin Dose 75 MG; Start 04/11/17 at 15:00 Miscellaneous Information 1 ea NOTE XX ; Start 04/15/17 at 07:00 RAYNE FITCH MD Apr 16, 2017 22:15
[2017-04-17] VITALS (11 sets, daily range): BP systolic 96–115; BP diastolic 46–54; PULSE 70–88; RESP 16–20
[2017-04-17] MEDS: ACCU-CHEK XX SCH (01:36)
[2017-04-17] MEDS: PANTOPRAZOLE (EC) 40 MG TAB PO SCH (06:12)
[2017-04-17 07:54] LABS: BASOPHILS % 0.3 % (0.0-2.0); EOSINOPHILS # 0.3 10^3/ul (0.0-0.5); HEMOGLOBIN 8.4 g/dl (14.0-18.0); LYMPHOCYTES # 1.6 10^3/ul (0.8-2.9); MEAN CORPUSCULAR HGB CONC 31.1 g/dl (32.0-37.0); MEAN CORPUSCULAR VOLUME 83.6 fl (82.0-101.0); MEAN PLATELET VOLUME 10.8 fl (7.4-10.4); MONOCYTE # 0.9 10^3/ul (0.3-0.9); MONOCYTES % 9.4 % (0.0-11.0); NEUTROPHIL # 6.6 10^3/ul (1.6-7.5); NEUTROPHILS % 68.7 % (39.0-77.0); PLATELET COUNT 254 10^3/UL (140-415); RED BLOOD COUNT 3.23 10^6/ul (4.70-6.10); RED CELL DISTRIBUTION WIDTH 13.9 % (11.5-14.5); WHITE BLOOD COUNT 9.7 10^3/ul (4.8-10.8)
[2017-04-17] MEDS: INSULIN ASPART [NOVOLOG] 3 ML PEN SC SCH ×6 (08:07→17:57)
[2017-04-17 08:19] LABS: ALBUMIN 2.9 g/dl (3.3-4.9); CALCIUM 9.1 mg/dl (8.4-10.2); CREATININE 6.3 mg/dl (0.61-1.24); MAGNESIUM 2.3 mg/dl (1.7-2.5); PHOSPHORUS 4.8 mg/dl (2.5-4.9); POTASSIUM 4.5 mmol/L (3.5-5.1)
[2017-04-17] MEDS: ALBUTEROL 0.083% (NEB) 2.5 MG/3 ML AMP HHN SCH ×3 (09:29→17:45)
[2017-04-17] MEDS: SEVELAMER CARBONATE 0.8 GM PKT PO SCH ×3 (09:31→17:47)
[2017-04-17] MEDS: NIFEdipine (XL) 60 MG TAB PO SCH (09:32)
[2017-04-17] MEDS: LISINOPRIL 5 MG TAB PO SCH (09:32)
[2017-04-17] MEDS: CLOPIDOGREL 75 MG TAB PO SCH (09:32)
[2017-04-17] MEDS: APIXABAN 5 MG TABLET PO SCH (09:33)
[2017-04-17] MEDS: METOPROLOL 50 MG TAB PO SCH (09:33)
[2017-04-17] MEDS: SENNA/DOCUSATE NA (8.6MG/50MG) TAB PO SCH (09:34)
[2017-04-17] MEDS: AMIODARONE 200 MG TAB PO SCH (09:34)
--- NOTE | 2017-04-17 15:12 | PN ---
Date/Time of Note Date/Time of Note DATE: 04/17/17 TIME: 15:10 Assessment/Plan VTE Prophylaxis VTE Prophylaxis Intervention: SCD's Lines/Catheters IV Catheter Type (from Nrsg): Mid Line Urinary Cath still in place: No Assessment/Plan Assessment/Plan 1. Acute hypoxic respiratory failure secondary to pleural effusion in right lung, s/p VATS 04.09.17- resolving - Patient doing well but requiring home O2 due to desaturating on room air - No acute respiratory issues at this time. - Pulmonology on board and recommendations appreciated - CT surgery on board as well and appreciate consultation 2. Large Right pleural effusion s/p thoracentesis 03/30 - VATS done 04.09.17 - s/p chest tuber removal - CT surgery recommendations appreciated 3. Acute on chronic CHF - Last ECHO 10/2016 showed EF 65% with stage 1 diastolic dysfunction - Monitor I/O and daily weights - CXR shows cardiomegaly - Cardiology recs appreciated and will continue current management. okay with d/ c planning and outpatient follow up 4. ESRD on HD - patient on outpatient schedule - Nephrology consultation appreciated. okay for discharge and follow up as outpatient 5. Hypertensive urgency- resolved - BP controlled on home medications 6. DM, type 2 - Continue current management - ISS and accuchecks - A1c 6.9 7. Heart block/bradycardia with PPM - cardiology on board 8. CAD s/p stent 10/2016 - continue on home medications - on Plavix 9. Atrial fibrillation - on BB and eliquis - rate controlled 10. Constipation - bowel regime 11. Disposition - plans for d/c home with FWW and HH with PT once O2 delivered Subjective 24 Hr Interval Summary Free Text/Dictation Patient doing well and in no acute distress. no acute overnight events. Plans for discharge today after O2 delivered Exam/Review of Systems Vital Signs Vitals Vital Signs Date Time Temp Pulse Resp B/P Pulse Ox O2 Delivery O2 Flow Rate FiO2 04/17/17 13:17 71 18 98 Nasal Cannula 2.0 04/17/17 11:42 98.4 103/46 Intake and Output 04/16/17 04/16/17 04/17/17 15:00 23:00 07:00 Intake Total 800 ml 600 ml 200 ml Output Total 2500 ml Balance -1700 ml 600 ml 200 ml Exam General: Patient is laying in bed and answers questions appropriately. awake and in no acute distress Mentation: Patient is alert and oriented 4, Head: Normocephalic atraumatic Eyes: EOMI, pupils reactive to light Neck: Supple, nontender, midline Respiratory: equal chest rise. diminished breath sounds at bases, right greater than left Cardiovascular: regular rate, no obvious murmurs Gastrointestinal: non-tender to palpation, bowel sounds heard. Neurological: Moves all extremities spontaneously Skin: No new skin lesions Results Result Diagram: 04/17/17 0658 04/17/17 0658 Results 24 hrs Laboratory Tests Test 04/16/17 18:06 04/16/17 20:40 04/17/17 01:35 04/17/17 06:58 Bedside Glucose 200 124 190 White Blood Count 9.7 Red Blood Count 3.23 L Hemoglobin 8.4 L Hematocrit 27.0 L Mean Corpuscular Volume 83.6 Mean Corpuscular Hemoglobin 26.0 L Mean Corpuscular Hemoglobin Concent 31.1 L Red Cell Distribution Width 13.9 Platelet Count 254 Mean Platelet Volume 10.8 H Neutrophils % 68.7 Lymphocytes % 17.0 Monocytes % 9.4 Eosinophils % 3.0 Basophils % 0.3 Nucleated Red Blood Cells % 0.0 Neutrophils # 6.6 Lymphocytes # 1.6 Monocytes # 0.9 Eosinophils # 0.3 Basophils # 0.0 Nucleated Red Blood Cells # 0.0 Sodium Level 134 L Potassium Level 4.5 Chloride Level 94 L Carbon Dioxide Level 29 Anion Gap 16 Blood Urea Nitrogen 55 H Creatinine 6.30 H Glucose Level 170 Calcium Level 9.1 Phosphorus Level 4.8 Magnesium Level 2.3 Albumin 2.9 L Test 04/17/17 07:59 04/17/17 11:43 Bedside Glucose 163 247 H Medications Medications Current Medications Atorvastatin Calcium (Lipitor) 80 mg QHS PO Last administered on 04/16/17 20: 38; Admin Dose 80 MG; Start 03/30/17 at 21:00 Bisacodyl (Dulcolax Supp) 10 mg Q24H PRN NE CONSTIPATION Last administered on 04/14/17 17:13; Admin Dose 10 MG; Start 03/30/17 at 14:30 Lisinopril (Zestril) 2.5 mg BID PO Last administered on 04/17/17 09:32; Admin Dose 2.5 MG; Start 03/30/17 at 21:00 Metoprolol Tartrate (Lopressor) 50 mg BID PO Last administered on 04/17/17 09 :33; Admin Dose 50 MG; Start 03/30/17 at 21:00 Nifedipine (Procardia Xl) 60 mg DAILY PO Last administered on 04/17/17 09:32 ; Admin Dose 60 MG; Start 03/31/17 at 09:00 Ondansetron HCl (Zofran Inj) 4 mg Q6H PRN IV NAUSEA AND/OR VOMITING; Start at 15:30 Acetaminophen (Tylenol Tab) 650 mg Q6H PRN PO PAIN LEVEL 1-3 OR FEVER; Start 03/30/17 at 15:30 Diagnostic Test (Pha) (Accu-Chek) 1 ea 02 XX Last administered on 04/12/17 02 :36; Admin Dose 1 EA; Start 03/31/17 at 02:00 Glucose (Glutose) 15 gm Q15M PRN PO DECREASED GLUCOSE; Start 03/30/17 at 15:30 Glucose (Glutose) 22.5 gm Q15M PRN PO DECREASED GLUCOSE; Start 03/30/17 at 15: 30 Dextrose (D50w Syringe) 25 ml Q15M PRN IV DECREASED GLUCOSE; Start 03/30/17 at 15:30 Dextrose (D50w Syringe) 50 ml Q15M PRN IV DECREASED GLUCOSE; Start 03/30/17 at 15:30 Glucagon (Glucagen) 1 mg Q15M PRN IM DECREASED GLUCOSE; Start 03/30/17 at 15: 30 Glucose (Glutose) 15 gm Q15M PRN BUCCAL DECREASED GLUCOSE; Start 03/30/17 at 15:30 Guaifenesin/ Codeine Phosphate (Robitussin Ac Liquid Cup) 5 ml Q4H PRN PO cough ; Start 03/30/17 at 19:30 Lidocaine (Lmx 4% Plus) 1 applic PRN PRN TOP Prior to HD cannulation Last administered on 03/31/17 11:23; Admin Dose 1 APPLIC; Start 03/30/17 at 21:00 Pantoprazole (Protonix Tab) 40 mg DAILY@06 PO Last administered on 04/17/17 06:12; Admin Dose 40 MG; Start 04/01/17 at 06:00 Senna/Docusate Sodium (Senokot-S) 1 tab DAILY PO Last administered on 09:34; Admin Dose 1 TAB; Start 04/03/17 at 12:00 Mineral Oil (Fleet Mineral Oil Enema) 133 ml DAILY PRN NE constipation Last administered on 04/05/17 16:41; Admin Dose 133 ML; Start 04/03/17 at 12:00 Insulin Glargine (Lantus) 16 unit QHS SC Last administered on 04/16/17 21:33 ; Admin Dose 16 UNIT; Start 04/09/17 at 21:00 Miscellaneous Information 1 ea NOTE XX ; Start 04/09/17 at 14:00 Glucagon (Glucagen) 1 mg Q15M PRN IM DECREASED GLUCOSE; Start 04/09/17 at 14:00 Morphine Sulfate (morphine) 2 mg Q2H PRN IV PAIN LEVEL 4-7 Last administered on 04/13/17 22:25; Admin Dose 2 MG; Start 04/09/17 at 15:00 Morphine Sulfate (morphine) 4 mg Q4H PRN IV MODERATE PAIN LEVEL 4-6 Last administered on 04/10/17 20:35; Admin Dose 4 MG; Start 04/10/17 at 20:30 Acetaminophen/ Hydrocodone Bitart ([place] (10/325)) 1 tab Q4H PRN PO PAIN Last administered on 04/14/17 17:14; Admin Dose 1 TAB; Start 04/10/17 at 20:30 Amiodarone HCl (Cordarone) 100 mg DAILY PO Last administered on 04/17/17 09: 34; Admin Dose 100 MG; Start 04/11/17 at 09:00 Apixaban (Eliquis) 2.5 mg BID PO Last administered on 04/17/17 09:33; Admin Dose 2.5 MG; Start 04/11/17 at 21:00 Clopidogrel Bisulfate (plaVIX) 75 mg DAILY PO Last administered on 04/17/17 09:32; Admin Dose 75 MG; Start 04/11/17 at 15:00 Miscellaneous Information 1 ea NOTE XX ; Start 04/15/17 at 07:00 JAE RAHMAN MD Apr 17, 2017 15:12
--- NOTE | 2017-04-17 15:18 | DS ---
Date/Time of Note Date/Time of Note DATE: 04/17/17 TIME: 15:18 Discharge Summary Admission/Discharge Info Admit Date/Time Mar 30, 2017 at 15:04 Discharge Date/Time Discharge Diagnosis 1. Acute hypoxic respiratory failure secondary to pleural effusion in right lung, s/p VATS 12.7.17- improving 2. Large Right pleural effusion s/p thoracentesis 03/30 3. Acute on chronic CHF 4. ESRD on HD 5. Hypertensive urgency 6. DM, type 2 7. Heart block/bradycardia with PPM 8. CAD s/p stent 10/2016 9. Atrial fibrillation 10. Constipation Patient Condition: Stable Consults Nephrology Cardiology Pulmonology CT Surgery Procedures 1. Thoracentesis 2. Right video-assisted thoracic surgery, total pulmonary decortication. 3. Bronchoscopy. PROCEDURE: XR Chest. CLINICAL INDICATION: Shortness of breath. Post right thoracentesis. TECHNIQUE: Single frontal view. COMPARISON: Prior study done earlier the same day. FINDINGS: There is complete opacification of the right hemithorax, worse than seen previously. The left lung is clear. The heart is enlarged. There is a right-sided dual lead permanent pacemaker. There is no left pleural effusion. There is no pneumothorax. IMPRESSION: 1. Complete opacification of the right hemithorax, worse than seen previously. 2. Cardiomegaly. 3. Permanent pacemaker. 4. No pneumothorax following right thoracentesis. PROCEDURE: US guided right thoracentesis. CLINICAL INDICATION: Shortness of breath. Right pleural effusion. TECHNIQUE: Prior to the procedure, informed consent was obtained. The risks, benefits, and alternatives were explained to the patient or the patient's family, including but not limited to bleeding, infection, pain, visceral or vascular damage, shock, pneumothorax, chest tube placement, air embolism, and . The patient or the patient's family understood the risks and the alternatives and wished to proceed with the study. Informed written consent was obtained. A procedural pause was performed. The patient's name, date of , and procedure to be performed were verified. Ultrasound of the right hemithorax was performed in the axial and sagittal planes. A large multiloculated right pleural effusion is noted. Utilizing ultrasound guidance, optimal location for entry to the pleural cavity was ascertained. The overlying skin was prepped and draped in the usual sterile fashion. Approximately 10 ml of 1% Xylocaine was injected locally for pain control. Using ultrasound guidance, a 5-[place] Yueh catheter was introduced into the right pleural space without difficulty. Fluid was aspirated. COMPARISON: Chest x-ray done earlier the same day. FINDINGS: Initial ultrasound demonstrates fluid in the right pleural space. There are multiple small loculations. Ultrasound of the right side of the chest following thoracentesis once again demonstrates a large multiloculated pleural effusion. Approximately 0.250 liters of serous fluid was aspirated and sent to the laboratory. IMPRESSION: 1. Multiloculated large right pleural effusion. 2. Following the thoracentesis, most of the fluid remains due to the multiple loculations. 3. Only 0.250 liters of fluid was able to be aspirated. PROCEDURE: CT Chest with contrast. CLINICAL INDICATION: Shortness of breath, pleural effusion. TECHNIQUE: A CT scan of the chest with contrast was performed. Coronal and sagittal reformatted images were obtained from the axial source images. 90 cc Omnipaque 300 were administered during examination without complication. DICOM images are available. CTDIvol: 15.66 mGy. DLP: 696.82 mGy-cm. One or more of the following dose reduction techniques were used: - Automated exposure control. - Adjustment of the mA and/or kV according to patient size. - Use of iterative reconstruction technique. COMPARISON: Chest x-ray dated 03/30/2017. FINDINGS: There is no suspicious thyroid lesion. No thoracic lymphadenopathy is seen. The heart is not enlarged. There is no pericardial effusion. There is a right chest cardiac pacemaker. The main pulmonary artery is mildly enlarged (3.3 cm). There is a very large right pleural effusion with complete right lung atelectasis. There are mild atelectatic changes in the left lower lobe. The trachea and bronchi appear patent. There is no pneumothorax The kidneys are atrophic. There are multiple bilateral renal cysts measuring up to 2.4 cm on the left. Some cysts in both kidneys contain complex internal density. There is no suspicious osseous lesion. IMPRESSION: 1. Very large right pleural effusion with complete right lung atelectasis, nonspecific. The right-sided bronchi appear patent. This could be further evaluated with diagnostic thoracentesis, as clinically warranted. 2. No thoracic lymphadenopathy. 3. Mildly enlarged main pulmonary artery, raising the possibility of pulmonary hypertension. 4. Atrophic kidneys. 5. Multiple bilateral renal cysts measure up to 2.4 cm on the left. Some cysts in both kidneys contain complex internal density, nonspecific. Further evaluation with ultrasound or contrast enhanced MRI is recommended. PROCEDURE: XR Chest. CLINICAL INDICATION: Pneumonia, CHF TECHNIQUE: Single frontal chest x-ray. COMPARISON: DR FRANCIS 04/15/2017 FINDINGS: Focal opacity at the right lung base is grossly unchanged. No pneumothorax is identified cardiomediastinal silhouette is stable in appearance. Aortic atherosclerotic calcification is noted. Right-sided dual lead pacemaker remains in place. The osseous structures are remarkable for degenerative enthesopathy of the spine. IMPRESSION: 1. Nonspecific focal opacity at the right lung base is grossly unchanged - considerations include pneumonia, atelectasis, and/or mild pleural effusion. 2. Aortic atherosclerosis. 3. No gross interval change. Hx of Present Illness 71 yo Italian speaking M with PMH ESRD on HD, CAD s/p stent in 10/2016, DM, bradycardia with PPM, HTN, atrial fibrillation and anemia of chronic disease presented to ED c/o worsening SOB over the past 4 days. History obtained from patient as well as son at bedside who assisted with translation. Per son patient was experiencing worsening SOB with persistent cough and white phlegm but denies any wheezing, fevers, chills, nausea, vomiting, chest pain, LOC, or abdominal issues. Patient underwent HD on and Thursday which did not relieve his SOB. Son encouraged father to go to ED but refused. Patient has home health that comes weekly and recorded O2 saturation of 84-86% and after calling PCP was instructed to go straight to the ED. Patient was found very labored in the ED saturating 89% and was emergently placed on BIPAP. Patient was also found to be hypertensive with SBP 180s which son said has been persistent over past 2 weeks. Patient was last in the hospital in October 2016 for Acute [place] s/p stenting and per Dr. Lundy office was lost to follow up. Hospital Course Patient was placed on BIPAP in ED and transferred to ICU for closer monitoring. IR was consulted for US guided drainage of the pleural effusion seen on CXR. Small amount of fluid was removed and US shows multiple loculated pockets of fluid. Nephrology was consulted in order to resume patients hemodialysis sessions. Cardiology was consulted given patients overload status and recent stenting 10/2016. CT surgery was consulted as well for evaluation for VATS. Pulmonology was consulted for assistance with management of patient while in the ICU setting as well as pleural effusions. Cardiology clearance was obtained and patients anticoagulations were placed on hold. Patient received aggressive HD prior to procedure to ensure patient at dry weight and assist with extubation and recovery. Patient underwent VATS with decortication on 04/09 with chest tube placement following surgery. Plavix and Eliquis restarted with approval of CT surgery. Patients chest tube was monitored for drainage and placed on water seal to assess. Patients chest tube was stable for removal and patient was assessed for home oxygen. Patient desaturated on room air and was set up for home O2. Physical therapy assessed patient and family wanted to take the patient home with home health and physical therapy rather than SNF placement. Case management made arrangements and patient was discharged home in stable condition following delivery of O2. Home Meds Active Scripts Amiodarone Hcl* (Amiodarone Hcl*) 200 Mg Tablet, 100 MG PO DAILY for 30 Days, # 30 TAB Prov:JAE RAHMAN MD 04/16/17 Insulin Glargine* (Lantus*) 100 Unit/Ml Soln, 16 UNIT SC QHS, #1 VIAL Prov:JAE RAHMAN MD 04/16/17 Reported Medications Acetaminophen* (Acetaminophen*) 325 Mg Tablet, 325 MG PO Q4H Y for PAIN AND OR ELEVATED TEMP, #30 TAB 03/30/17 Bisacodyl* (Bisacodyl*) 10 Mg Supp, 10 MG NV Q24H Y for CONSTIPATION, SUPP 03/30/17 Nifedipine* (Nifedipine ER*) 60 Mg Tablet.sa, 60 MG PO DAILY, TAB.SA 03/30/17 Sevelamer Carbonate* (Renvela*) 800 Mg Tablet, 0.8 GM PO WITH MEALS, TAB 03/30/17 Insulin Aspart* (Novolog Insulin Pen*) 100 Unit/Ml Soln, 0 SC .SLIDING SCALE AC , EA 03/30/17 Polyethylene Glycol* (Miralax*) 17 Gm Powd.pack, 17 GM PO DAILY Y for CONSTIPATION, #30 PACKET 03/30/17 Lisinopril* (Lisinopril*) 2.5 Mg Tablet, 2.5 MG PO BID, #30 TAB 03/30/17 Docusate Sodium* (Docusate Sodium*) 100 Mg Capsule, 100 MG PO BID, #60 CAP 11/27/17 Clopidogrel Bisulfate (Clopidogrel) 75 Mg Tablet, 75 MG PO DAILY, #30 TAB 03/30/17 Metoprolol Tartrate* (Lopressor*) 50 Mg Tab, 50 MG PO BID, #60 TAB 03/30/17 Atorvastatin* (Atorvastatin*) 80 Mg Tablet, 80 MG PO QHS, #30 TAB 03/30/17 Apixaban* (Eliquis*) 2.5 Mg Tablet, 2.5 MG PO BID, TAB 03/30/17 Discontinued Reported Medications Ondansetron Hcl* (Zofran*) 4 Mg Tablet, 4 MG PO Q6H Y for NAUSEA AND OR VOMITING , TAB 03/30/17 Follow-up Plan 1. Follow up with your primary care physician in 1 week 2. Continue with dialysis as previously scheduled 3. Follow up with [facility] 1-2 weeks after discharge 4. continue taking all medications as prescribed 5. Follow up with [employer] to continue to assess need for home oxygen 6. You will need to use 2L of oxygen 7. If symptoms return, please return to the ED 8. Increase Lantus to 16 units for better sugar control Primary Care Provider Mignon Lucia Time spent on discharge: > 30 minutes Pending Labs Laboratory Tests Test 04/16/17 18:06 04/16/17 20:40 04/17/17 01:35 04/17/17 06:58 Bedside Glucose 200mg/dL (70-220) 124mg/dL (70-220) 190mg/dL (70-220) White Blood Count 9.710^3/ul (4.8-10.8) Red Blood Count 3.2310^6/ul (4.70-6.10) Hemoglobin 8.4g/dl (14.0-18.0) Hematocrit 27.0% (42.0-52.0) Mean Corpuscular Volume 83.6fl (82.0-101.0) Mean Corpuscular Hemoglobin 26.0pg (29.0-33.0) Mean Corpuscular Hemoglobin Concent 31.1g/dl (32.0-37.0) Red Cell Distribution Width 13.9% (11.5-14.5) Platelet Count 90479^3/UL (140-415) Mean Platelet Volume 10.8fl (7.4-10.4) Neutrophils % 68.7% (39.0-77.0) Lymphocytes % 17.0% (15.0-51.0) Monocytes % 9.4% (0.0-11.0) Eosinophils % 3.0% (0.0-7.0) Basophils % 0.3% (0.0-2.0) Nucleated Red Blood Cells % 0.0/100WBC (0.0-0.0) Neutrophils # 6.610^3/ul (1.6-7.5) Lymphocytes # 1.610^3/ul (0.8-2.9) Monocytes # 0.910^3/ul (0.3-0.9) Eosinophils # 0.310^3/ul (0.0-0.5) Basophils # 0.010^3/ul (0.0-0.1) Nucleated Red Blood Cells # 0.010^3/ul (0.0-0.0) Sodium Level 134mmol/L (135-144) Potassium Level 4.5mmol/L (3.5-5.1) Chloride Level 94mmol/L (97-110) Carbon Dioxide Level 29mmol/L (21-31) Anion Gap 16 (8-16) Blood Urea Nitrogen 55mg/dl (7-20) Creatinine 6.30mg/dl (0.61-1.24) Glucose Level 170mg/dl (70-220) Calcium Level 9.1mg/dl (8.4-10.2) Phosphorus Level 4.8mg/dl (2.5-4.9) Magnesium Level 2.3mg/dl (1.7-2.5) Albumin 2.9g/dl (3.3-4.9) Test 04/17/17 07:59 04/17/17 11:43 Bedside Glucose 163mg/dL (70-220) 247mg/dL (70-220) JAE RAHMAN MD Apr 17, 2017 15:18
--- NOTE | 2017-04-17 15:36 | CONS ---
Date/Time of Note Date/Time of Note DATE: 04/17/17 TIME: 15:35 Consult Date/Type/Reason Admit Date/Time Mar 30, 2017 at 15:04 Initial Consult Date 03/30/17 Type of Consultation: Pulmonary Subjective Patient remains stable this morning. No new events Objective Vital Signs Date Time Temp Pulse Resp B/P Pulse Ox O2 Delivery O2 Flow Rate FiO2 04/17/17 13:17 71 18 98 Nasal Cannula 2.0 04/17/17 11:42 98.4 103/46 Intake and Output 04/16/17 04/16/17 04/17/17 15:00 23:00 07:00 Intake Total 800 ml 600 ml 200 ml Output Total 2500 ml Balance -1700 ml 600 ml 200 ml Exam GENERAL: elderly gentleman, comfortable at rest VITAL SIGNS: per chart NECK: Supple. No JVD or lymphadenopathy. CARDIAC EXAM: S1, S2. No added sounds or murmurs. CHEST: Diminished air entry bilaterally R> L ABDOMEN: Soft, nontender. No guarding or rebound. EXTREMITIES: No cyanosis, clubbing or edema. NEUROLOGIC: Generalized weakness. No focal deficits. Results/Medications Result Diagram: 04/17/17 0658 04/17/17 0658 Results 24 hrs Laboratory Tests Test 04/16/17 18:06 04/16/17 20:40 04/17/17 01:35 04/17/17 06:58 Bedside Glucose 200 124 190 White Blood Count 9.7 Red Blood Count 3.23 L Hemoglobin 8.4 L Hematocrit 27.0 L Mean Corpuscular Volume 83.6 Mean Corpuscular Hemoglobin 26.0 L Mean Corpuscular Hemoglobin Concent 31.1 L Red Cell Distribution Width 13.9 Platelet Count 254 Mean Platelet Volume 10.8 H Neutrophils % 68.7 Lymphocytes % 17.0 Monocytes % 9.4 Eosinophils % 3.0 Basophils % 0.3 Nucleated Red Blood Cells % 0.0 Neutrophils # 6.6 Lymphocytes # 1.6 Monocytes # 0.9 Eosinophils # 0.3 Basophils # 0.0 Nucleated Red Blood Cells # 0.0 Sodium Level 134 L Potassium Level 4.5 Chloride Level 94 L Carbon Dioxide Level 29 Anion Gap 16 Blood Urea Nitrogen 55 H Creatinine 6.30 H Glucose Level 170 Calcium Level 9.1 Phosphorus Level 4.8 Magnesium Level 2.3 Albumin 2.9 L Test 04/17/17 07:59 04/17/17 11:43 Bedside Glucose 163 247 H Medications Current Medications Atorvastatin Calcium (Lipitor) 80 mg QHS PO Last administered on 04/16/17 20: 38; Admin Dose 80 MG; Start 03/30/17 at 21:00 Bisacodyl (Dulcolax Supp) 10 mg Q24H PRN [place] CONSTIPATION Last administered on 04/14/17 17:13; Admin Dose 10 MG; Start 03/30/17 at 14:30 Lisinopril (Zestril) 2.5 mg BID PO Last administered on 04/17/17 09:32; Admin Dose 2.5 MG; Start 03/30/17 at 21:00 Metoprolol Tartrate (Lopressor) 50 mg BID PO Last administered on 04/17/17 09 :33; Admin Dose 50 MG; Start 03/30/17 at 21:00 Nifedipine (Procardia Xl) 60 mg DAILY PO Last administered on 04/17/17 09:32 ; Admin Dose 60 MG; Start 03/31/17 at 09:00 Ondansetron HCl (Zofran Inj) 4 mg Q6H PRN IV NAUSEA AND/OR VOMITING; Start at 15:30 Acetaminophen (Tylenol Tab) 650 mg Q6H PRN PO PAIN LEVEL 1-3 OR FEVER; Start 03/30/17 at 15:30 Diagnostic Test (Pha) (Accu-Chek) 1 ea 02 XX Last administered on 04/12/17 02 :36; Admin Dose 1 EA; Start 03/31/17 at 02:00 Glucose (Glutose) 15 gm Q15M PRN PO DECREASED GLUCOSE; Start 03/30/17 at 15:30 Glucose (Glutose) 22.5 gm Q15M PRN PO DECREASED GLUCOSE; Start 03/30/17 at 15: 30 Dextrose (D50w Syringe) 25 ml Q15M PRN IV DECREASED GLUCOSE; Start 03/30/17 at 15:30 Dextrose (D50w Syringe) 50 ml Q15M PRN IV DECREASED GLUCOSE; Start 03/30/17 at 15:30 Glucagon (Glucagen) 1 mg Q15M PRN IM DECREASED GLUCOSE; Start 03/30/17 at 15: 30 Glucose (Glutose) 15 gm Q15M PRN BUCCAL DECREASED GLUCOSE; Start 03/30/17 at 15:30 Guaifenesin/ Codeine Phosphate (Robitussin Ac Liquid Cup) 5 ml Q4H PRN PO cough ; Start 03/30/17 at 19:30 Lidocaine (Lmx 4% Plus) 1 applic PRN PRN TOP Prior to HD cannulation Last administered on 03/31/17 11:23; Admin Dose 1 APPLIC; Start 03/30/17 at 21:00 Pantoprazole (Protonix Tab) 40 mg DAILY@06 PO Last administered on 04/17/17 06:12; Admin Dose 40 MG; Start 04/01/17 at 06:00 Senna/Docusate Sodium (Senokot-S) 1 tab DAILY PO Last administered on 09:34; Admin Dose 1 TAB; Start 04/03/17 at 12:00 Mineral Oil (Fleet Mineral Oil Enema) 133 ml DAILY PRN [place] constipation Last administered on 04/05/17 16:41; Admin Dose 133 ML; Start 04/03/17 at 12:00 Insulin Glargine (Lantus) 16 unit QHS SC Last administered on 04/16/17 21:33 ; Admin Dose 16 UNIT; Start 04/09/17 at 21:00 Miscellaneous Information 1 ea NOTE XX ; Start 04/09/17 at 14:00 Glucagon (Glucagen) 1 mg Q15M PRN IM DECREASED GLUCOSE; Start 04/09/17 at 14:00 Morphine Sulfate (morphine) 2 mg Q2H PRN IV PAIN LEVEL 4-7 Last administered on 04/13/17 22:25; Admin Dose 2 MG; Start 04/09/17 at 15:00 Morphine Sulfate (morphine) 4 mg Q4H PRN IV MODERATE PAIN LEVEL 4-6 Last administered on 04/10/17 20:35; Admin Dose 4 MG; Start 04/10/17 at 20:30 Acetaminophen/ Hydrocodone Bitart ([place] (10/325)) 1 tab Q4H PRN PO PAIN Last administered on 04/14/17 17:14; Admin Dose 1 TAB; Start 04/10/17 at 20:30 Amiodarone HCl (Cordarone) 100 mg DAILY PO Last administered on 04/17/17 09: 34; Admin Dose 100 MG; Start 04/11/17 at 09:00 Apixaban (Eliquis) 2.5 mg BID PO Last administered on 04/17/17 09:33; Admin Dose 2.5 MG; Start 04/11/17 at 21:00 Clopidogrel Bisulfate (plaVIX) 75 mg DAILY PO Last administered on 04/17/17 09:32; Admin Dose 75 MG; Start 04/11/17 at 15:00 Miscellaneous Information 1 ea NOTE XX ; Start 04/15/17 at 07:00 Assessment/Plan Chief Complaint/Hosp Course IMP: 1. Massive right lymphocytic/neutrophilic-predominant exudative effusion--s/p VATS . minimal effusion. 2. ESRD on HD RECS: 1. F/U pleural fluid studies and pleural bx 2. stable following chest tube removal. dc planning Problems: KI WHITAKER MD[facility] Apr 17, 2017 15:36
--- NOTE | 2017-04-17 21:45 | CONS ---
Date/Time of Note Date/Time of Note DATE: 04/17/17 TIME: 21:44 Assessment/Plan Assessment/Plan Additional Assessment/Plan 1. Acute hypoxic resp failure due to acute fluid overload and Pleural effusion 2. ESRD on HD -TTS schedule 3. Right hemithorax multiple loculated right pleural effusion s/p Thoracentesis 250 cc drained- pt has multiple pockets of loculated effusion 4. h/o CAD s/p CABG 5/ H/o recent UT and s/p stenting by 6/ HTN 7/ HL Plan: -s/p VATS with decortication, - s/p Hd yesterday, possible d/c plan today Pt regular schedule is TTS Consultation Date/Type/Reason Admit Date/Time Mar 30, 2017 at 15:04 Initial Consult Date 03/30/17 Type of Consultation: NEPHROLOGY 24 HR Interval Summary Free Text/Dictation s/p Hd yesterday, BP stable Exam/Review of Systems Vital Signs Vitals Vital Signs Date Time Temp Pulse Resp B/P Pulse Ox O2 Delivery O2 Flow Rate FiO2 04/17/17 17:58 82 18 97 Nasal Cannula 2.0 04/17/17 16:09 97.8 96/50 Intake and Output 04/16/17 04/16/17 04/17/17 15:00 23:00 07:00 Intake Total 800 ml 600 ml 200 ml Output Total 2500 ml Balance -1700 ml 600 ml 200 ml Exam Constitutional: alert Respiratory: crackles/rales, diminished breath sounds, Cardiovascular: nl pulses, regular rate and rhythm Gastrointestinal: non-tender, soft Musculoskeletal: nl extremities to inspection Neurological: PHYSICAL DAMAGE APPRAISER II-XII intact, nl mental status, nl speech Results Result Diagram: 04/17/17 0658 04/17/17 0658 Results 24 hrs Laboratory Tests Test 04/17/17 01:35 04/17/17 06:58 04/17/17 07:59 04/17/17 11:43 Bedside Glucose 190 163 247 H White Blood Count 9.7 Red Blood Count 3.23 L Hemoglobin 8.4 L Hematocrit 27.0 L Mean Corpuscular Volume 83.6 Mean Corpuscular Hemoglobin 26.0 L Mean Corpuscular Hemoglobin Concent 31.1 L Red Cell Distribution Width 13.9 Platelet Count 254 Mean Platelet Volume 10.8 H Neutrophils % 68.7 Lymphocytes % 17.0 Monocytes % 9.4 Eosinophils % 3.0 Basophils % 0.3 Nucleated Red Blood Cells % 0.0 Neutrophils # 6.6 Lymphocytes # 1.6 Monocytes # 0.9 Eosinophils # 0.3 Basophils # 0.0 Nucleated Red Blood Cells # 0.0 Sodium Level 134 L Potassium Level 4.5 Chloride Level 94 L Carbon Dioxide Level 29 Anion Gap 16 Blood Urea Nitrogen 55 H Creatinine 6.30 H Glucose Level 170 Calcium Level 9.1 Phosphorus Level 4.8 Magnesium Level 2.3 Albumin 2.9 L Test 04/17/17 17:50 Bedside Glucose 198 RAYNE FITCH MD Apr 17, 2017 21:45
== END 2017-04-17 19:13 | disposition home health service (06) | DRG 163 ==
LOC: E/R 13:02 → ICU 15:04 → MS4 04-02 20:56 → ICU 04-09 09:51 → TEL 04-10 23:45
PROVIDERS: ADMIT Internal Medicine; ATTEND Internal Medicine
PROC: 0W993ZX Drainage of Right Pleural Cavity, Percutaneous Approach, Diagnostic (ICD-10-PCS; 2017-03-30)
PROC: 5A09357 Assistance with Respiratory Ventilation, Less than 24 Consecutive Hours, Continuous Positive Airway Pressure (ICD-10-PCS; 2017-03-30)
PROC: 0BCK4ZZ Extirpation of Matter from Right Lung, Percutaneous Endoscopic Approach (ICD-10-PCS; principal; 2017-04-14)
PROC: 0W9940Z Drainage of Right Pleural Cavity with Drainage Device, Percutaneous Endoscopic Approach (ICD-10-PCS; 2017-04-14)
PROC: 0BJ08ZZ Inspection of Tracheobronchial Tree, Via Natural or Artificial Opening Endoscopic (ICD-10-PCS; 2017-04-14)
DX: J90 Pleural effusion, not elsewhere classified (principal); I50.33 Acute on chronic diastolic (congestive) heart failure; J96.01 Acute respiratory failure with hypoxia; R34 Anuria and oliguria; N18.6 End stage renal disease; E11.22 Type 2 diabetes mellitus with diabetic chronic kidney disease; I48.91 Unspecified atrial fibrillation; I13.2 Hypertensive heart and chronic kidney disease with heart failure and with stage 5 chronic kidney disease, or end stage renal disease; I16.1 Hypertensive emergency; I25.10 Atherosclerotic heart disease of native coronary artery without angina pectoris; D63.1 Anemia in chronic kidney disease; E78.5 Hyperlipidemia, unspecified; I73.9 Peripheral vascular disease, unspecified; K59.00 Constipation, unspecified; I25.2 Old myocardial infarction; Z99.2 Dependence on renal dialysis; Z95.5 Presence of coronary angioplasty implant and graft; Z95.0 Presence of cardiac pacemaker; Z95.1 Presence of aortocoronary bypass graft
CPT/HCPCS: 32555; 36415; 36600; 71010; 71260; 80048; 80069; 82040; 82550; 82553; 82803; 82945; 82962; 83036; 83605; 83615; 83735; 84100; 84155; 84157; 84484; 85025; 85610; 85730; 86850; 86900; 86901; 87040; 87070; 87081; 87102; 87116; 88307; 89051; 90935; 92610; 93005; 93306; 94640; 94660; 96365; 96366; 96375; 97110; 97116; 97163; 97530; C9113; J0692; J1644; J1815; J1940; J2175; J2250; J2270; J2370; J3010; J3370; P9045; P9047; Q9967

== ENCOUNTER 2018-03-21 00:36 | Inpatient (IN) | END 2018-04-03 14:41 | disposition home or self-care (01) | DRG 180 ==

== ENCOUNTER 2018-05-03 15:04 | Inpatient (IN) | payer MEDICARE, OTHER ==
[~2018-05-03] VITALS: Ht 172.7 cm; Wt 81.8 kg
[~2018-05-03 15:04] MED LIST changes: +AMIO200T4 PO; +APIX2.5T PO; +ATOR-2 PO; -ATROPINE 1 MG/10 ML SYRINGE ONE; +BISA10SU75 PR; +CLOP75TA27 PO; +DOCU-159 PO; +LANT3I SC; +LISI2.5T59 PO; +METO-429 PO; +NIFE60TA18 PO; +NOVO3I SC; +POLY17PO6 PO; +SEVE800T7 PO
[2018-05-03] MEDS ORDERED: SOD CHLORIDE 0.9% 500 ML IV STA (15:40)
[2018-05-03] MEDS ORDERED: VANCOMYCIN 1 GM (PMX) 250 ML IVPB STA (16:19)
[2018-05-03] MEDS ORDERED: CEFEPIME 1GM/50 ML (PMX) 50 ML IVPB STA (16:19)
--- NOTE | 2018-05-03 16:22 | ERD ---
ER Documentation Chief Complaint Chief Complaint severe weakness with near syncope after dialysis HPI This is 72-year-old male sent for decreased level of consciousness and weakness after dialysis today around 2 PM. Patient's son spoke with me on the phone and told me that the patient used to be ambulatory but for the past 2 weeks has been nonambulatory and has gotten progressively gradually weaker. The patient has not been on any antibiotics or known recent illness. The patient went to dialysis today when he got home he had a decompensation in his mental status. The patient is awake and able to answer basic questions with one-word answers. He tells me he is not in pain ROS All systems reviewed and are negative except as per history of present illness. Medications Home Meds Active Scripts Amiodarone Hcl* (Amiodarone Hcl*) 200 Mg Tablet, 100 MG PO DAILY for 30 Days, #30 TAB Prov:JAE RAHMAN MD 04/16/17 Insulin Glargine* (Lantus*) 100 Unit/Ml Soln, 16 UNIT SC QHS, #1 VIAL Prov:JAE RAHMAN MD 04/16/17 Reported Medications Bisacodyl* (Bisacodyl*) 10 Mg Supp, 10 MG [place] Q24H PRN for CONSTIPATION, SUPP 03/30/17 Nifedipine* (Nifedipine ER*) 60 Mg Tablet.sa, 60 MG PO DAILY, TAB.SA 03/30/17 Sevelamer Carbonate* (Renvela*) 800 Mg Tablet, 0.8 GM PO WITH MEALS, TAB 03/30/17 Insulin Aspart* (Novolog Insulin Pen*) 100 Unit/Ml Soln, 0 SC .SLIDING SCALE AC, EA 03/30/17 Polyethylene Glycol* (Miralax*) 17 Gm Powd.pack, 17 GM PO DAILY PRN for CONSTIPATION, #30 PACKET 03/30/17 Lisinopril* (Lisinopril*) 2.5 Mg Tablet, 2.5 MG PO BID, #30 TAB 03/30/17 Docusate Sodium* (Docusate Sodium*) 100 Mg Capsule, 100 MG PO BID, #60 CAP 03/30/17 Clopidogrel Bisulfate (Clopidogrel) 75 Mg Tablet, 75 MG PO DAILY, #30 TAB 03/30/17 Metoprolol Tartrate* (Lopressor*) 50 Mg Tab, 50 MG PO BID, #60 TAB 03/30/17 Atorvastatin* (Atorvastatin*) 80 Mg Tablet, 80 MG PO QHS, #30 TAB 03/30/17 Apixaban* (Eliquis*) 2.5 Mg Tablet, 2.5 MG PO BID, TAB 03/30/17 Allergies Allergies: Coded Allergies: No Known Allergy (Unverified , 03/22/18) PMhx/Soc History of Surgery: Yes (THORACENTESIS;PACEMAKER;ANGIOGRAM/ABLASION;AVF;) Anesthesia Reaction: No Hx Neurological Disorder: No Hx Respiratory Disorders: Yes (PLEURAL EFFUSION;) Hx Cardiac Disorders: Yes (HTN;MN;) Hx Psychiatric Problems: No Hx Miscellaneous Medical Probl: No Hx Alcohol Use: No Hx Substance Use: No Hx Tobacco Use: No Smoking Status: Unknown if ever smoked FmHx Family History: No coronary disease Physical Exam Vitals Vital Signs Date Temp Pulse Resp B/P (MAP) Pulse Ox O2 O2 Flow FiO2 Time Delivery Rate 05/03/18 91 12 106/77 99 Nasal 2.0 16:37 (87) Cannula 05/03/18 Nasal 3.0 16:03 Cannula 05/03/18 Nasal 3 16:03 Cannula 05/03/18 97.3 94 12 102/53 100 15:13 (69) Physical Exam Const: Well-developed, well-nourished Head: Atraumatic, normocephalic Eyes: Normal Conjunctiva, PERRLA, EOMI, normal sclera, no nystagmus ENT: Normal External Ears, Nose and Mouth, moist mucus membranes. Neck: Full range of motion. No meningismus, no lymphadenopathy. Resp: Clear to auscultation bilaterally, no wheezing, rhonchi, rales Cardio: Regular rate and rhythm, no murmurs, S1 S2 present Abd: Soft, non tender x 4, non distended. Normal bowel sounds, no guarding or rebound, no pulsitile abdominal masses or bruits Skin: No petechiae or rashes, no ecchymosis , no maculopapular rash Back: No midline or flank tenderness Ext: No cyanosis, or edema, FROM x 4, normal inspection, neurovascular ly intact x 4 Neur: Awake but has decreased level of consciousness. We will follow basic commands like squeeze my hands and move his feet. He does tend to doze off. Response to pain with localization, difficult to assess fully neurologically] Psych: Normal Mood and Affect Result Diagram: 05/03/18 1550 05/03/18 1550 Results 24 hrs Laboratory Tests Test 05/03/18 15:50 05/03/18 15:51 05/03/18 16:54 White Blood Count 8.1 10^3/ul Red Blood Count 4.26 10^6/ul Hemoglobin 10.7 g/dl Hematocrit 37.0 % Mean Corpuscular Volume 86.9 fl Mean Corpuscular Hemoglobin 25.1 pg Mean Corpuscular 28.9 g/dl Hemoglobin Concent Red Cell Distribution Width 17.5 % Platelet Count 238 10^3/UL Mean Platelet Volume 9.8 fl Immature Granulocytes % 1.200 % Neutrophils % 88.4 % Lymphocytes % 4.9 % Monocytes % 5.4 % Eosinophils % 0.0 % Basophils % 0.1 % Nucleated Red Blood Cells % 0.0 /100WBC Immature Granulocytes # 0.100 10^3/ul Neutrophils # 7.2 10^3/ul Lymphocytes # 0.4 10^3/ul Monocytes # 0.4 10^3/ul Eosinophils # 0.0 10^3/ul Basophils # 0.0 10^3/ul Nucleated Red Blood Cells # 0.0 10^3/ul Prothrombin Time 13.0 Sec Prothrombin Time Ratio 1.0 INR International 0.97 Normalized Ratio Activated Partial Thromboplast 32.1 Sec Time Sodium Level 141 mmol/L Potassium Level 3.8 mmol/L Chloride Level 94 mmol/L Carbon Dioxide Level 38 mmol/L Anion Gap 9 Blood Urea Nitrogen 27 mg/dl Creatinine 1.90 mg/dl Est Glomerular Filtrat mL/min Rate mL/min Glucose Level 189 mg/dl Lactic Acid Level 2.7 mmol/L Calcium Level 8.2 mg/dl Total Bilirubin 0.0 mg/dl Direct Bilirubin 0.00 mg/dl Indirect Bilirubin 0.0 mg/dl Aspartate Amino 25 IU/L Transf (AST/SGOT) Alanine 18 IU/L Aminotransferase (ALT/SGPT) Alkaline Phosphatase 127 IU/L Troponin I 0.027 ng/ml Total Protein 6.0 g/dl Albumin 3.0 g/dl Globulin 3.00 g/dl Albumin/Globulin Ratio 1.00 Ammonia < 9 umol/l POC Venous Lactate 1.7 mmol/L Current Medications Medications Dose Sig/Jesika Start Time Status Last (Trade) Ordered Route PRN Stop Time Admin Dose Reason Admin Sodium 500 ml @ Q1H STAT 05/03/18 DC 05/03/18 Chloride 500 mls/hr IV 15:40 16:41 05/03/18 16:39 Cefepime HCl 50 ml @ ONCE STAT 05/03/18 DC 05/03/18 100 mls/hr IVPB 16:19 16:42 05/03/18 16:48 Vancomycin 250 ml @ ONCE STAT 05/03/18 HCl 125 mls/hr IVPB 16:19 05/03/18 18:18 Procedures/MDM Ordering MD: KULWANT BETANCOURT DO Location: E/R Room/Bed: PROCEDURE: CT brain without contrast CLINICAL INDICATION: Altered mental status. Weakness TECHNIQUE: A CT of the brain was performed utilizing axial sections from the skull base through the vertex without contrast. Sagittal and coronal images were also reformatted. DICOM images are available. One or more of the following dose reduction techniques were used: Automated exposure control, adjustment of the mA and/or kV according to patient size, use of iterative reconstruction technique. The exam CTDIvol = 39.64 mGy and DLP = 634.23 mGy-cm. COMPARISON: 03/22/2018 FINDINGS: No acute intracranial hemorrhage is identified. There is no mass effect or midline shift. No extra-axial fluid collection is seen. The ventricles and sulci are larger in size and configuration for the patient's provided age of 72 years consistent with advanced generalized atrophy. Diffuse low attenuation of the subcortical and periventricular white matter is again noted, nonspecific but likely the sequela of chronic small vessel ischemic disease. A small chronic lacunar infarct within the left thalamic nucleus is again noted. Jensen-white differentiation is preserved with no findings to suggest an acute ischemic infarct. The fourth ventricle is midline and there is no density alteration within the ganga or cerebellum. The osseous structures are diffusely demineralized but otherwise unremarkable. Trace ethmoid sinus mucosal thickening is present. The mastoid air cells and remaining visualized paranasal sinuses are clear. Severe atherosclerotic calcification of the cavernous internal carotid arteries is present. RPTAT:HJJR IMPRESSION: 1. Advanced atrophy for the patient's provided age without evidence of acute intracranial abnormality, mass effect or interval change from 03/22/2018. 2. Moderate chronic small vessel ischemic cerebral white matter disease is again noted. 3. Chronic left thalamic lacunar infarct. 4. Cavernous internal carotid artery atherosclerotic calcification. Physician Erinn Date Time Electronically viewed and signed by Physician Erinn on 05/03/2018 16:16 JR/ CC: KULWANT BETANCOURT DO [id number] Ordering MD: KULWANT BETANCOURT DO Location: E/R Room/Bed: PROCEDURE: XR Chest. CLINICAL INDICATION: Shortness of breath TECHNIQUE: Single portable view of the chest was obtained COMPARISON: No priors for comparison FINDINGS: The trachea is midline. The cardiac silhouette and pulmonary vascularity are prominent. There are diffuse bilateral perihilar and interstitial infiltrates and right-sided consolidation. Probable large right-sided pleural effusion.. Mild left-sided pleural effusion. There is a right-sided dual lead pacer device with distal tip overlying right atrium and right ventricle. IMPRESSION: 1. Cardiomegaly and central pulmonary congestion with bilateral perihilar and interstitial infiltrates and right-sided consolidation. Probable large right- sided pleural effusion. 2. Right-sided dual lead pacer device in place. RPTAT: AAPP Jaimee Holcomb Physician Date Time Electronically viewed and signed by Physician Lanny on 05/03/2018 16:08 JL/ CC: KULWANT BETANCOURT DO [id number] EKG: Rate/Rhythm: Normal Sinus Rhythm,NL intervals low voltage QRS QRS, ST, QT: NORMAL OK, QRS, QT] Impression: Abnormal EKG Admit MDM: Patient's infectious symptoms have not stabilized and the patient is at risk of rapid decompensation. The patient will be admitted for careful hydration, antibiotic therapy, and infectious source control. Severe Sepsis criteria: Infectious source: Pneumonia End organ damage indicated by: Elevated lactate Lactate > 2.0 mmol/L Hypotension (SBP < 90 or >40 mmHG drop or MAP < 65) Acute Resp Failure (sat < 92% w/o oxygen) Chocolate Dipper > 2.0 INR > 1.5 Plt < 100 Bili > 2 Sepsis Management: Time of recognition of severe sepsis: At time of lactate Within 3 hours of recognition: Blood cultures x 2 before broad-spectrum antibiotics: []Yes 30 ml/kg NS bolus []Completed Initial lactate 2.7 Repeat lactate 1.6 Septic Shock Assessment: Any lactic acid > 4.0 []No Persistent hypotension (SBP < 90 or 40 mmHg drop, MAP < 65) despite 30 mL/kg IV fluid bolus []No Persistent Hypotension Treatment: Comfort care []No Hypotension caused by: pt. baseline, med-induced, erroneous value, condition other than infection []No Refusal by patient/decision maker for: blood draw, IVF, Antibiotics, Pressors []No Accepting Care Team Current data and ongoing care discussed. Time: [] Admitting Physician: Panel Director Television(s): Outstanding Data: []None Critical Care Time: 30minutes Treatments/Evaluations: Close monitoring and treatment of unstable vital signs, cardiorespiratory, and neurologic status, while maintaining tight balance of fluid, respiratory, and cardiac interventions. This includes the administration of emergency fluid management while maintaining close respiratory support as well as the provision of immediate and broad-spectrum antibiotic therapy, while performing a simultaneous assessment for possible sources in order to direct targeted therapy. This time includes discussing the case with the patient and the patient's family. This time also includes the consideration for invasive and chemical support to prevent cardiopulmonary collapse. This time does not include all procedures stated elsewhere in this record. This time also includes reviewing old records, labs and radiological studies. This time includes examining and re-examining the patient. Additionally, this time also includes arranging care with admitting and consulting physicians. After IV fluids the patient's mental status improved Departure Diagnosis: Primary Impression: Sepsis Sepsis type: sepsis due to unspecified organism Qualified Codes: A41.9 - Sepsis, unspecified organism Additional Impression: Pneumonia Pneumonia type: due to unspecified organism Laterality: right Lung location: lower lobe of lung Qualified Codes: J18.1 - Lobar pneumonia, unspecified organism Condition: Stable KULWANT BETANCOURT DO May 03, 2018 16:22
[2018-05-03] MEDS ORDERED: SODIUM CHLORIDE 0.9% 1L BAG IV* STA (17:24)
[2018-05-03] MEDS ORDERED: SOD CHLORIDE 0.9% 1,000 ML IV SCH (18:01)
[2018-05-03] MEDS ORDERED: ONDANSETRON 4 MG INJ IV PRN ×2 (18:30→19:30)
[2018-05-03] MEDS ORDERED: ACETAMINOPHEN 325 MG TAB PO PRN (18:30)
--- NOTE | 2018-05-03 19:07 | HP ---
Date/Time of Note Date/Time of Note DATE: 05/03/18 TIME: 19:02 Assessment/Plan VTE Prophylaxis SCD applied (from Nsg): Yes Pharmacological prophylaxis: NA/contraindicated Pharm contraindication: renal impairment Lines/Catheters IV Catheter Type (from Nrsg): Saline Lock Assessment/Plan Assessment/Plan 1. Acute metabolic encephalopathy likely secondary to underlying mesothelioma CT head shows advanced atrophy with chronic left thalamic lacunar infarct Unclear if patient has initiated chemotherapy No evidence of infection 2. Mesothelioma Oncology consultation 3. End-stage renal disease Nephrology consultation for dialysis 4. Chronic left thalamic lacunar infarct No acute issues Prophylaxis: SCDs Result Diagram: 05/03/18 1550 05/03/18 1550 Results 24hrs Laboratory Tests Test 05/03/18 15:50 05/03/18 15:51 05/03/18 16:54 White Blood Count 8.1 # Red Blood Count 4.26 L Hemoglobin 10.7 L Hematocrit 37.0 L Mean Corpuscular Volume 86.9 Mean Corpuscular Hemoglobin 25.1 L Mean Corpuscular 28.9 L Hemoglobin Concent Red Cell Distribution Width 17.5 H Platelet Count 238 Mean Platelet Volume 9.8 Immature Granulocytes % 1.200 H Neutrophils % 88.4 H Lymphocytes % 4.9 L Monocytes % 5.4 Eosinophils % 0.0 Basophils % 0.1 Nucleated Red Blood Cells % 0.0 Immature Granulocytes # 0.100 H Neutrophils # 7.2 Lymphocytes # 0.4 L Monocytes # 0.4 Eosinophils # 0.0 Basophils # 0.0 Nucleated Red Blood Cells # 0.0 Prothrombin Time 13.0 Prothrombin Time Ratio 1.0 INR International 0.97 Normalized Ratio Activated Partial Thromboplast 32.1 Time Sodium Level 141 Potassium Level 3.8 Chloride Level 94 L Carbon Dioxide Level 38 H Anion Gap 9 Blood Urea Nitrogen 27 H Creatinine 1.90 H Est Glomerular Filtrat Rate mL/min Glucose Level 189 Lactic Acid Level 2.7 *H Calcium Level 8.2 L Total Bilirubin 0.0 L Direct Bilirubin 0.00 Indirect Bilirubin 0.0 Aspartate Amino 25 Transf (AST/SGOT) Alanine 18 Aminotransferase (ALT/SGPT) Alkaline Phosphatase 127 H Troponin I 0.027 Total Protein 6.0 L Albumin 3.0 L Globulin 3.00 Albumin/Globulin Ratio 1.00 Ammonia < 9 L POC Venous Lactate 1.7 HPI/ROS Admit Date/Time Admit Date/Time 05/03/2018 Hx of Present Illness Patient is a 72-year-old male with a history of end-stage renal disease on dialysis, mesothelioma as well as debility from comorbidities. Patient was to follow-up with pulmonology and oncology as outpatient for initiation of chemo therapy but is unclear if this has been done. Patient presents with weakness and confusion and is unable to provide any history at this time. ROS Subjective hx not possible: pt non-verbal PMH/Family/Social Past Medical History As per HPI Medications Current Medications Sodium Chloride 1,000 ml @ 80 mls/hr [id number] IV ; Start 05/03/18 at 18:01; Stop 05/04/18 at 06:30 Ondansetron HCl (Zofran Inj) 4 mg ER BRIDGE PRN IV NAUSEA AND/OR VOMITING; Start 05/03/18 at 18:30; Stop 05/04/18 at 18:29 Acetaminophen (Tylenol Tab) 650 mg ER BRIDGE PRN PO MILD PAIN(1-3)OR ELEVATED TEMP; Start 05/03/18 at 18:30; Stop 05/04/18 at 18:29 Coded Allergies: No Known Allergy (Unverified , 03/22/18) Past Surgical History Past Surgical Hx: no surgical history, other Family History Significant Family History: no pertinent family hx Social History Alcohol Use: none Smoking Status: Unknown if ever smoked Drug Use: none Exam/Review of Systems Vital Signs Vitals Vital Signs Date Temp Pulse Resp B/P (MAP) Pulse Ox O2 O2 Flow FiO2 Time Delivery Rate 05/03/18 74 21 114/48 100 Nasal 2.0 18:26 (70) Cannula 05/03/18 97.3 15:13 Exam Psych: confusion Respiratory: clear to auscultation Cardiovascular: regular rate and rhythm Gastrointestinal: soft; No distended Musculoskeletal: nl extremities to inspection KATHARINE PETERS May 03, 2018 19:07
[2018-05-03 19:12] VITALS: PULSE 82
[2018-05-03] MEDS ORDERED: GLUCOSE GEL 15 GRAM TUBE PO PRN ×2 (19:30)
[2018-05-03] MEDS ORDERED: morphine 2 MG INJ IV PRN (19:30)
[2018-05-03] MEDS ORDERED: GLUCAGON 1 MG INJ IM PRN (19:30)
[2018-05-03] MEDS ORDERED: hydrALAzine 20 MG INJ IV PRN (19:30)
[2018-05-03] MEDS ORDERED: NACL 0.9% 3 ML SYG IV SCH (19:30)
[2018-05-03] MEDS ORDERED: DEXTROSE 50% 50 ML SYRINGE IV PRN ×2 (19:30)
[2018-05-03] MEDS ORDERED: GLUCOSE GEL 15 GRAM TUBE BUCCAL PRN (19:30)
[2018-05-03] MEDS: INSULIN ASPART [NOVOLOG] 3 ML PEN SC SCH (19:48)
[2018-05-03 19:50] VITALS: Ht 172.7 cm; Wt 81.8 kg
[2018-05-03 20:00] VITALS: BP 113/57; PULSE 75; PULSE 77; RESP 20
[2018-05-03] MEDS: DEXTROSE 5%-0.45% NACL 1,000 ML IV SCH (20:13)
[2018-05-03] MEDS: morphine SULFATE/PF (2 MG/2 ML) SYG IV PRN (20:21)
[2018-05-03] MEDS: ACCU-CHEK XX SCH (23:45)
[2018-05-04] VITALS (27 sets, daily range): BP systolic 91–122; BP diastolic 31–90; PULSE 66–120; RESP 17–20
[2018-05-04] MEDS: INSULIN ASPART [NOVOLOG] 3 ML PEN SC SCH ×5 (01:00→17:00)
--- NOTE | 2018-05-04 08:30 | CONS ---
Date/Time of Note Date/Time of Note DATE: 05/04/18 TIME: 08:30 Assessment/Plan Assessment/Plan Assessment/Plan 1. Acute metabolic encephalopathy 2. Chronic thalamic lacunar infarct 3. ESRD on HD TTS schedule 4. H/o mesothelioma Plan: seen on tele floor Plan for HD today then we will keep pt on TTS schedule, Electrolytes stable today will follow up Thanks for consultation Result Diagram: 05/04/18 0540 05/04/18 0540 Results 24hrs Laboratory Tests Test 05/03/18 15:50 05/03/18 15:51 05/03/18 16:54 05/03/18 19:47 White Blood 8.1 # Count Red Blood Count 4.26 L Hemoglobin 10.7 L Hematocrit 37.0 L Mean Corpuscular 86.9 Volume Mean Corpuscular 25.1 L Hemoglobin Mean Corpuscular 28.9 L Hemoglobin Debora nt Red Cell 17.5 H Distribution Width Platelet Count 238 Mean Platelet 9.8 Volume Immature 1.200 H Granulocytes % Neutrophils % 88.4 H Lymphocytes % 4.9 L Monocytes % 5.4 Eosinophils % 0.0 Basophils % 0.1 Nucleated Red 0.0 Blood Cells % Immature 0.100 H Granulocytes # Neutrophils # 7.2 Lymphocytes # 0.4 L Monocytes # 0.4 Eosinophils # 0.0 Basophils # 0.0 Nucleated Red 0.0 Blood Cells # Prothrombin Time 13.0 Prothrombin Time 1.0 Ratio INR 0.97 International Normalized Ratio Activated 32.1 Partial Thrombop last Time Sodium Level 141 Potassium Level 3.8 Chloride Level 94 L Carbon Dioxide 38 H Level Anion Gap 9 Blood Urea 27 H Nitrogen Creatinine 1.90 H Est Glomerular Filtrat Rate mL/min Glucose Level 189 Lactic Acid 2.7 *H Level Calcium Level 8.2 L Total Bilirubin 0.0 L Direct Bilirubin 0.00 Indirect 0.0 Bilirubin Aspartate Amino 25 Transf (AST/SGOT ) Alanine 18 Aminotransferase (ALT/SGPT) Alkaline 127 H Phosphatase Troponin I 0.027 Total Protein 6.0 L Albumin 3.0 L Globulin 3.00 Albumin/Globulin 1.00 Ratio Ammonia < 9 L POC Venous 1.7 Lactate Bedside Glucose 146 Test 05/04/18 00:53 05/04/18 04:51 05/04/18 05:40 Bedside Glucose 113 111 White Blood 7.8 Count Red Blood Count 3.81 L Hemoglobin 9.4 L Hematocrit 32.4 L Mean Corpuscular 85.0 Volume Mean Corpuscular 24.7 L Hemoglobin Mean Corpuscular 29.0 L Hemoglobin Debora nt Red Cell 17.4 H Distribution Width Platelet Count 220 Mean Platelet 10.2 Volume Immature 1.000 H Granulocytes % Neutrophils % 83.0 H Lymphocytes % 7.2 L Monocytes % 8.2 Eosinophils % 0.3 Basophils % 0.3 Nucleated Red 0.0 Blood Cells % Immature 0.080 H Granulocytes # Neutrophils # 6.5 Lymphocytes # 0.6 L Monocytes # 0.6 Eosinophils # 0.0 Basophils # 0.0 Nucleated Red 0.0 Blood Cells # Sodium Level 141 Potassium Level 3.8 Chloride Level 97 Carbon Dioxide 35 H Level Anion Gap 9 Blood Urea 33 H Nitrogen Creatinine 2.24 H Est Glomerular Filtrat Rate mL/min Glucose Level 120 # Calcium Level 8.4 Phosphorus Level 4.7 Magnesium Level 2.1 Consultation Date/Type/Reason Admit Date/Time 05/03/2018 Date of Consultation: May 03, 2018 Type of Consult NEPHROLOGY Reason for Consultation ESRd on HD admitted to encephalopathy Requesting Provider: KATHARINE PETERS Hx of Present Illness 72-year-old male with a history of end-stage renal disease on dialysis, mesothelioma as well as debility from comorbidities. Patient was to follow-up with pulmonology and oncology as outpatient for initiation of chemotherapy but is unclear if this has been done. Patient presents with weakness and confusion and is unable to provide any history at this time. renal has been consulted for HD today, pt gets HD on Thursday , and Thursday schedule as outpatient Subjective hx not possible: pt non-verbal, other (unable to obtain ROS due to COnfusion state ) Past Medical History Medical History: high cholesterol, hypertension, other (ESRD on HD ) Medications Current Medications Dextrose/Sodium Chloride 1,000 ml @ 40 mls/hr Q24H IV Last administered on 05/03/18at 20:13; Admin Dose 40 MLS/HR; Start 05/03/18 at 19:07 IV Flush (NS 3 ml) 3 ml PER PROTOCOL IV ; Start 05/03/18 at 19:30 Ondansetron HCl (Zofran Inj) 4 mg Q6H PRN IV NAUSEA AND/OR VOMITING; Start 05/03/18 at 19:30 Diagnostic Test (Pha) (Accu-Chek) 1 ea 02 XX ; Start 05/04/18 at 02:00 Insulin Aspart (Novolog Insulin Pen) NOVOLOG *MILD* ALGORI... Q4 SC ; Start 05/03/18 at 21:00 Hydralazine HCl (Apresoline) 10 mg Q4H PRN IV SBP>170; Start 05/03/18 at 19:30 Miscellaneous Information 1 ea NOTE XX ; Start 05/03/18 at 19:30 Glucose (Glutose) 15 gm Q15M PRN PO DECREASED GLUCOSE; Start 05/03/18 at 19:30 Glucose (Glutose) 22.5 gm Q15M PRN PO DECREASED GLUCOSE; Start 05/03/18 at 19:30 Dextrose (D50w Syringe) 25 ml Q15M PRN IV DECREASED GLUCOSE; Start 05/03/18 at 19:30 Dextrose (D50w Syringe) 50 ml Q15M PRN IV DECREASED GLUCOSE; Start 05/03/18 at 19:30 Glucagon (Glucagen) 1 mg Q15M PRN IM DECREASED GLUCOSE; Start 05/03/18 at 19:30 Glucose (Glutose) 15 gm Q15M PRN BUCCAL DECREASED GLUCOSE; Start 05/03/18 at 19:30 Morphine Sulfate (morphine SULFATE (PF)) 2 mg Q4H PRN IV SEVERE PAIN LEVEL 7-10 Last administered on 05/03/18at 20:21; Admin Dose 2 MG; Start 05/03/18 at 20:00 Allergies: Coded Allergies: No Known Allergy (Unverified , 03/22/18) Past Surgical History Past Surgical Hx: no surgical history, other Family History Significant Family History: no pertinent family hx Social History Alcohol Use: none Smoking Status: Never smoker Drug Use: none Exam/Review of Systems Vital Signs Vitals Vital Signs Date Temp Pulse Resp B/P (MAP) Pulse Ox O2 O2 Flow FiO2 Time Delivery Rate 05/04/18 97.7 73 18 109/48 96 07:58 (68) 05/04/18 Nasal 2.0 04:00 Cannula Intake and Output 05/03/18 05/03/18 05/04/18 1515:00 23:00 07:00 IntakeIntake Total 450 ml BalanceBalance 450 ml Exam Constitutional: alert Psych: no complaints Head: normocephalic Eyes: nl conjunctiva ENMT: nl external ears & nose Neck: supple, non-tender Respiratory: clear to auscultation, normal air movement, diminished breath sounds Cardiovascular: regular rate and rhythm, nl pulses Gastrointestinal: soft, non-tender Musculoskeletal: nl extremities to inspection Neurological: confused Medications Medications Current Medications Dextrose/Sodium Chloride 1,000 ml @ 40 mls/hr Q24H IV Last administered on 05/03/18at 20:13; Admin Dose 40 MLS/HR; Start 05/03/18 at 19:07 IV Flush (NS 3 ml) 3 ml PER PROTOCOL IV ; Start 05/03/18 at 19:30 Ondansetron HCl (Zofran Inj) 4 mg Q6H PRN IV NAUSEA AND/OR VOMITING; Start 05/03/18 at 19:30 Diagnostic Test (Pha) (Accu-Chek) 1 ea 02 XX ; Start 05/04/18 at 02:00 Insulin Aspart (Novolog Insulin Pen) NOVOLOG *MILD* ALGORI... Q4 SC ; Start 05/03/18 at 21:00 Hydralazine HCl (Apresoline) 10 mg Q4H PRN IV SBP>170; Start 05/03/18 at 19:30 Miscellaneous Information 1 ea NOTE XX ; Start 05/03/18 at 19:30 Glucose (Glutose) 15 gm Q15M PRN PO DECREASED GLUCOSE; Start 05/03/18 at 19:30 Glucose (Glutose) 22.5 gm Q15M PRN PO DECREASED GLUCOSE; Start 05/03/18 at 19:30 Dextrose (D50w Syringe) 25 ml Q15M PRN IV DECREASED GLUCOSE; Start 05/03/18 at 19:30 Dextrose (D50w Syringe) 50 ml Q15M PRN IV DECREASED GLUCOSE; Start 05/03/18 at 19:30 Glucagon (Glucagen) 1 mg Q15M PRN IM DECREASED GLUCOSE; Start 05/03/18 at 19:30 Glucose (Glutose) 15 gm Q15M PRN BUCCAL DECREASED GLUCOSE; Start 05/03/18 at 19:30 Morphine Sulfate (morphine SULFATE (PF)) 2 mg Q4H PRN IV SEVERE PAIN LEVEL 7-10 Last administered on 05/03/18at 20:21; Admin Dose 2 MG; Start 05/03/18 at 20:00 RAYNE FITCH MD May 04, 2018 08:30
[2018-05-04] MEDS ORDERED: SODIUM CHLORIDE 0.9% 1L BAG IV PRN (09:00)
--- NOTE | 2018-05-04 11:25 | PN ---
Date/Time of Note Date/Time of Note DATE: 05/04/18 TIME: 11:22 Assessment/Plan VTE Prophylaxis Risk score (from [facility] [place])>0 risk: 4 SCD applied (from [facility] [place]): Yes Pharmacological prophylaxis: NA/contraindicated Pharm contraindication: renal impairment Lines/Catheters IV Catheter Type (from [facility]): Saline Lock Assessment/Plan Hospital Course 1. Acute metabolic encephalopathy likely secondary to underlying mesothelioma CT head shows advanced atrophy with chronic left thalamic lacunar infarct Patient has not received chemotherapy as of yet No evidence of infection 2. Mesothelioma Oncology consultation obtained Patient does not appear to be a candidate for chemotherapy but will defer to o ncology 3. End-stage renal disease Nephrology consultation obtained for dialysis 4. Chronic left thalamic lacunar infarct No acute issues Prophylaxis: SCDs Result Diagram: 05/04/18 0540 05/04/18 0540 Results 24hrs Laboratory Tests Test 05/03/18 15:50 05/03/18 15:51 05/03/18 16:54 05/03/18 19:47 White Blood 8.1 # Count Red Blood Count 4.26 L Hemoglobin 10.7 L Hematocrit 37.0 L Mean Corpuscular 86.9 Volume Mean Corpuscular 25.1 L Hemoglobin Mean Corpuscular 28.9 L Hemoglobin Debora nt Red Cell 17.5 H Distribution Width Platelet Count 238 Mean Platelet 9.8 Volume Immature 1.200 H Granulocytes % Neutrophils % 88.4 H Lymphocytes % 4.9 L Monocytes % 5.4 Eosinophils % 0.0 Basophils % 0.1 Nucleated Red 0.0 Blood Cells % Immature 0.100 H Granulocytes # Neutrophils # 7.2 Lymphocytes # 0.4 L Monocytes # 0.4 Eosinophils # 0.0 Basophils # 0.0 Nucleated Red 0.0 Blood Cells # Prothrombin Time 13.0 Prothrombin Time 1.0 Ratio INR 0.97 International Normalized Ratio Activated 32.1 Partial Thrombop last Time Sodium Level 141 Potassium Level 3.8 Chloride Level 94 L Carbon Dioxide 38 H Level Anion Gap 9 Blood Urea 27 H Nitrogen Creatinine 1.90 H Est Glomerular Filtrat Rate mL/min Glucose Level 189 Lactic Acid 2.7 *H Level Calcium Level 8.2 L Total Bilirubin 0.0 L Direct Bilirubin 0.00 Indirect 0.0 Bilirubin Aspartate Amino 25 Transf (AST/SGOT ) Alanine 18 Aminotransferase (ALT/SGPT) Alkaline 127 H Phosphatase Troponin I 0.027 Total Protein 6.0 L Albumin 3.0 L Globulin 3.00 Albumin/Globulin 1.00 Ratio Ammonia < 9 L POC Venous 1.7 Lactate Bedside Glucose 146 Test 05/04/18 00:53 05/04/18 04:51 05/04/18 05:40 05/04/18 08:43 Bedside Glucose 113 111 110 White Blood 7.8 Count Red Blood Count 3.81 L Hemoglobin 9.4 L Hematocrit 32.4 L Mean Corpuscular 85.0 Volume Mean Corpuscular 24.7 L Hemoglobin Mean Corpuscular 29.0 L Hemoglobin Debora nt Red Cell 17.4 H Distribution Width Platelet Count 220 Mean Platelet 10.2 Volume Immature 1.000 H Granulocytes % Neutrophils % 83.0 H Lymphocytes % 7.2 L Monocytes % 8.2 Eosinophils % 0.3 Basophils % 0.3 Nucleated Red 0.0 Blood Cells % Immature 0.080 H Granulocytes # Neutrophils # 6.5 Lymphocytes # 0.6 L Monocytes # 0.6 Eosinophils # 0.0 Basophils # 0.0 Nucleated Red 0.0 Blood Cells # Sodium Level 141 Potassium Level 3.8 Chloride Level 97 Carbon Dioxide 35 H Level Anion Gap 9 Blood Urea 33 H Nitrogen Creatinine 2.24 H Est Glomerular Filtrat Rate mL/min Glucose Level 120 # Calcium Level 8.4 Phosphorus Level 4.7 Magnesium Level 2.1 Subjective 24 Hr Interval Summary Constitutional: disoriented Exam/Review of Systems Vital Signs Vitals Vital Signs Date Temp Pulse Resp B/P (MAP) Pulse Ox O2 O2 Flow FiO2 Time Delivery Rate 05/04/18 72 09:01 05/04/18 Nasal 2.0 08:30 Cannula 05/04/18 97.7 18 109/48 96 07:58 (68) Intake and Output 05/03/18 05/03/18 05/04/18 1515:00 23:00 07:00 IntakeIntake Total 450 ml BalanceBalance 450 ml Exam Psych: confusion Respiratory: clear to auscultation Cardiovascular: regular rate and rhythm Gastrointestinal: soft; No distended Musculoskeletal: nl extremities to inspection Medications Medications Current Medications Dextrose/Sodium Chloride 1,000 ml @ 40 mls/hr Q24H IV Last administered on 05/03/18at 20:13; Admin Dose 40 MLS/HR; Start 05/03/18 at 19:07 IV Flush (NS 3 ml) 3 ml PER PROTOCOL IV ; Start 05/03/18 at 19:30 Ondansetron HCl (Zofran Inj) 4 mg Q6H PRN IV NAUSEA AND/OR VOMITING; Start 05/03/18 at 19:30 Diagnostic Test (Pha) (Accu-Chek) 1 ea 02 XX ; Start 05/04/18 at 02:00 Insulin Aspart (Novolog Insulin Pen) NOVOLOG *MILD* ALGORI... Q4 SC ; Start 05/03/18 at 21:00 Hydralazine HCl (Apresoline) 10 mg Q4H PRN IV SBP>170; Start 05/03/18 at 19:30 Miscellaneous Information 1 ea NOTE XX ; Start 05/03/18 at 19:30 Glucose (Glutose) 15 gm Q15M PRN PO DECREASED GLUCOSE; Start 05/03/18 at 19:30 Glucose (Glutose) 22.5 gm Q15M PRN PO DECREASED GLUCOSE; Start 05/03/18 at 19:30 Dextrose (D50w Syringe) 25 ml Q15M PRN IV DECREASED GLUCOSE; Start 05/03/18 at 19:30 Dextrose (D50w Syringe) 50 ml Q15M PRN IV DECREASED GLUCOSE; Start 05/03/18 at 19:30 Glucagon (Glucagen) 1 mg Q15M PRN IM DECREASED GLUCOSE; Start 05/03/18 at 19:30 Glucose (Glutose) 15 gm Q15M PRN BUCCAL DECREASED GLUCOSE; Start 05/03/18 at 19:30 Morphine Sulfate (morphine SULFATE (PF)) 2 mg Q4H PRN IV SEVERE PAIN LEVEL 7-10 Last administered on 05/03/18at 20:21; Admin Dose 2 MG; Start 05/03/18 at 20:00 Albumin Human 50 ml @ 100 mls/hr WITH DIALYSIS PRN IV SBP less than 90 mm Hg ; Start 05/04/18 at 09:00 Sodium Chloride (NS) -To prime the dialy... DIRECTED FOR HD PRN IV SBP less than 90 mm Hg ; Start 05/04/18 at 09:00 KATHARINE PETERS May 04, 2018 11:25
--- NOTE | 2018-05-04 16:06 | CONS ---
DATE OF ADMISSION: 05/03/2018 DATE OF CONSULTATION: 05/04/2018 REASON FOR CONSULTATION: Mesothelioma. ATTENDING PHYSICIAN: Yordy Stapleton MD HISTORY OF PRESENT ILLNESS: Patient is a 72-year-old man with history of chronic kidney disease on h emodialysis recently diagnosed with mesothelioma 03/2018 by pleural biopsy. The patient has yet to f ollow up or receive treatment for this mesothelioma and the patient ultimately was presented to the E mergency Room with weakness and confusion, unable to give any details of history. Patient has since been restarted on hemodialysis. He continues weak, unable to follow simple commands and therefore hi story is obtained through discussion with the son, Bk as well as his at the bedside. PAST MEDICAL HISTORY: As noted above. PAST SURGICAL HISTORY: Only includes dialysis catheter. ALLERGIES: Patient has no known drug allergies. MEDICATIONS: Per the reconciliation. FAMILY HISTORY: Negative for any malignancy. SOCIAL HISTORY: The patient is without any history of tobacco, alcohol use. REVIEW OF SYSTEMS: CONSTITUTIONAL: The patient denies any subjective fevers or chills. EYES, EARS, NOSE, THROAT: The patient denies any double blurred vision, any change in taste or smell . CARDIOVASCULAR: The patient denies any chest pain or palpitations. PHYSICAL EXAMINATION: VITAL SIGNS: Currently, patient is afebrile with a temperature of 98.2, heart rate of 76, blood pres sure 122/57, respiratory rate of 18. GENERAL: The patient is a thin man in no respiratory distress. Weak. HEENT: Shows anicteric sclerae. Moist mucous membranes. NECK: Trachea to be midline with no bruits bilaterally. CHEST: Decreased breath sounds bibasilar. CARDIAC: Regular rate, normal S1, S2. ABDOMEN: Soft, nontender, nondistended. EXTREMITIES: Shows no clubbing, cyanosis, or edema. LABORATORY DATA: White blood cell count of 7.8, hemoglobin 9.4, platelet count of 220. BUN is 33, c reatinine 2.24, calcium of 8.4, phosphorus of 4.7, magnesium 2.1. PT of 13, PTT of 32.1. Hepatitis B is negative. ASSESSMENT AND PLAN: A 72-year-old man with chronic kidney disease on hemodialysis, newly diagnosed with mesothelioma. 1. Mesothelioma. Currently the patient has not received any therapy and therefore, in regards to hi s acute encephalopathy, unlikely related to any medications since none has been given as yet. Consid eration will be given to chemotherapy in face of ongoing chronic kidney disease, or other treatment s uch as immunotherapy or best supportive care with hospice. Family appears guarded in regards to the type of improvement that he might have given his current comorbidities. 2. Chronic kidney disease. Currently, patient is on hemodialysis. He will continue with nephrology . Thank you very much, Dr. Stapleton, for allowing me to participate in the care of this patient. Dr. Ginger butler will assume care of the patient tomorrow. Dictated By: GLADIS GLOVER MD CH/NTS Conf#: [id number] DID#: [id number] CC: KATHARINE STAPLETON MD;*EndCC*
[2018-05-04] MEDS: morphine SULFATE/PF (2 MG/2 ML) SYG IV PRN (18:43)
[2018-05-04] MEDS: DEXTROSE 5%-0.45% NACL 1,000 ML IV SCH (21:48)
[2018-05-05] VITALS (10 sets, daily range): BP systolic 114–129; BP diastolic 55–71; PULSE 70–76; RESP 18–19
[2018-05-05] MEDS: ACCU-CHEK XX SCH (02:00)
[2018-05-05] MEDS: INSULIN ASPART [NOVOLOG] 3 ML PEN SC SCH ×2 (07:25→17:00)
--- NOTE | 2018-05-05 12:40 | CONS ---
Date/Time of Note Date/Time of Note DATE: 05/05/18 TIME: 12:40 Assessment/Plan Assessment/Plan Assessment/Plan 1. Acute metabolic encephalopathy 2. Chronic thalamic lacunar infarct 3. ESRD on HD TTS schedule 4. H/o mesothelioma Plan: HD orderd for tomorrow, will keep pt on TTS schedule will follow up Result Diagram: 05/04/18 0540 05/04/18 0540 Results 24hrs Laboratory Tests Test 05/04/18 17:26 05/04/18 21:46 05/05/18 07:57 05/05/18 12:05 Bedside Glucose 108 109 116 122 Consultation Date/Type/Reason Admit Date/Time May 03, 2018 at 18:02 Initial Consult Date 05/03/18 Type of Consult NEPHROLOGY Requesting Provider: KATHARINE PETERS Exam/Review of Systems Vital Signs Vitals Vital Signs Date Temp Pulse Resp B/P (MAP) Pulse Ox O2 O2 Flow FiO2 Time Delivery Rate 05/05/18 71 12:25 05/05/18 97.7 19 129/60 96 11:17 (83) 05/05/18 Nasal 2.0 08:00 Cannula Intake and Output 05/04/18 05/04/18 05/05/18 1515:00 23:00 07:00 IntakeIntake Total 740 ml 560 ml OutputOutput Total 0 ml 1200 ml BalanceBalance 0 ml -460 ml 560 ml Exam Constitutional: alert Respiratory: clear to auscultation, normal air movement, diminished breath sounds Cardiovascular: regular rate and rhythm, nl pulses Gastrointestinal: soft, non-tender Musculoskeletal: nl extremities to inspection Neurological: alert awake, but sleepy Medications Medications Current Medications Dextrose/Sodium Chloride 1,000 ml @ 40 mls/hr Q24H IV Last administered on 05/04/18at 21:48; Admin Dose 40 MLS/HR; Start 05/03/18 at 19:07 IV Flush (NS 3 ml) 3 ml PER PROTOCOL IV ; Start 05/03/18 at 19:30 Ondansetron HCl (Zofran Inj) 4 mg Q6H PRN IV NAUSEA AND/OR VOMITING; Start 05/03/18 at 19:30 Diagnostic Test (Pha) (Accu-Chek) 1 ea 02 XX ; Start 05/04/18 at 02:00 Hydralazine HCl (Apresoline) 10 mg Q4H PRN IV SBP>170; Start 05/03/18 at 19:30 Miscellaneous Information 1 ea NOTE XX ; Start 05/03/18 at 19:30 Glucose (Glutose) 15 gm Q15M PRN PO DECREASED GLUCOSE; Start 05/03/18 at 19:30 Glucose (Glutose) 22.5 gm Q15M PRN PO DECREASED GLUCOSE; Start 05/03/18 at 19:30 Dextrose (D50w Syringe) 25 ml Q15M PRN IV DECREASED GLUCOSE; Start 05/03/18 at 19:30 Dextrose (D50w Syringe) 50 ml Q15M PRN IV DECREASED GLUCOSE; Start 05/03/18 at 19:30 Glucagon (Glucagen) 1 mg Q15M PRN IM DECREASED GLUCOSE; Start 05/03/18 at 19:30 Glucose (Glutose) 15 gm Q15M PRN BUCCAL DECREASED GLUCOSE; Start 05/03/18 at 1 9:30 Morphine Sulfate (morphine SULFATE (PF)) 2 mg Q4H PRN IV SEVERE PAIN LEVEL 7-10 Last administered on 05/04/18at 18:43; Admin Dose 2 MG; Start 05/03/18 at 20:00 Albumin Human 50 ml @ 100 mls/hr WITH DIALYSIS PRN IV SBP less than 90 mm Hg ; Start 05/04/18 at 09:00 Sodium Chloride (NS) -To prime the dialy... DIRECTED FOR HD PRN IV SBP less than 90 mm Hg ; Start 05/04/18 at 09:00 Insulin Aspart (Novolog Insulin Pen) NOVOLOG *MILD* ALGORI... AC BREAKFAST DINNER SC ; Start 05/05/18 at 07:25 RAYNE FITCH MD May 05, 2018 12:40
--- NOTE | 2018-05-05 15:01 | PN ---
Date/Time of Note Date/Time of Note DATE: 05/05/18 TIME: 15:00 Assessment/Plan VTE Prophylaxis Risk score (from [facility] [place])>0 risk: 7 SCD applied (from [facility] [place]): Yes Pharmacological prophylaxis: NA/contraindicated Pharm contraindication: renal impairment Lines/Catheters IV Catheter Type (from [facility]): Peripheral IV Assessment/Plan Hospital Course 1. Acute metabolic encephalopathy likely secondary to underlying mesothelioma CT head shows advanced atrophy with chronic left thalamic lacunar infarct Patient has not received chemotherapy as of yet No evidence of infection 2. Mesothelioma Oncology consultation appreciated, follow-up with recommendations Patient does not appear to be a candidate for chemotherapy but will defer to oncology 3. End-stage renal disease Nephrology consultation obtained for dialysis 4. Chronic left thalamic lacunar infarct No acute issues Prophylaxis: SCDs Result Diagram: 05/04/18 0540 05/04/18 0540 Results 24hrs Laboratory Tests Test 05/04/18 17:26 05/04/18 21:46 05/05/18 07:57 05/05/18 12:05 Bedside Glucose 108 109 116 122 Subjective 24 Hr Interval Summary Constitutional: disoriented Exam/Review of Systems Vital Signs Vitals Vital Signs Date Temp Pulse Resp B/P (MAP) Pulse Ox O2 O2 Flow FiO2 Time Delivery Rate 05/05/18 71 12:25 05/05/18 97.7 19 129/60 96 11:17 (83) 05/05/18 Nasal 2.0 08:00 Cannula Intake and Output 05/04/18 05/04/18 05/05/18 1414:59 22:59 06:59 IntakeIntake Total 740 ml 560 ml OutputOutput Total 0 ml 1200 ml BalanceBalance 0 ml -460 ml 560 ml Exam Psych: confusion Respiratory: clear to auscultation Cardiovascular: regular rate and rhythm Gastrointestinal: soft; No distended Musculoskeletal: nl extremities to inspection Medications Medications Current Medications Dextrose/Sodium Chloride 1,000 ml @ 40 mls/hr Q24H IV Last administered on 05/04/18at 21:48; Admin Dose 40 MLS/HR; Start 05/03/18 at 19:07 IV Flush (NS 3 ml) 3 ml PER PROTOCOL IV ; Start 05/03/18 at 19:30 Ondansetron HCl (Zofran Inj) 4 mg Q6H PRN IV NAUSEA AND/OR VOMITING; Start 05/03/18 at 19:30 Diagnostic Test (Pha) (Accu-Chek) 1 ea 02 XX ; Start 05/04/18 at 02:00 Hydralazine HCl (Apresoline) 10 mg Q4H PRN IV SBP>170; Start 05/03/18 at 19:30 Miscellaneous Information 1 ea NOTE XX ; Start 05/03/18 at 19:30 Glucose (Glutose) 15 gm Q15M PRN PO DECREASED GLUCOSE; Start 05/03/18 at 19:30 Glucose (Glutose) 22.5 gm Q15M PRN PO DECREASED GLUCOSE; Start 05/03/18 at 19:30 Dextrose (D50w Syringe) 25 ml Q15M PRN IV DECREASED GLUCOSE; Start 05/03/18 at 19:30 Dextrose (D50w Syringe) 50 ml Q15M PRN IV DECREASED GLUCOSE; Start 05/03/18 at 19:30 Glucagon (Glucagen) 1 mg Q15M PRN IM DECREASED GLUCOSE; Start 05/03/18 at 19:30 Glucose (Glutose) 15 gm Q15M PRN BUCCAL DECREASED GLUCOSE; Start 05/03/18 at 19:30 Morphine Sulfate (morphine SULFATE (PF)) 2 mg Q4H PRN IV SEVERE PAIN LEVEL 7-10 Last administered on 05/04/18at 18:43; Admin Dose 2 MG; Start 05/03/18 at 20:00 Albumin Human 50 ml @ 100 mls/hr WITH DIALYSIS PRN IV SBP less than 90 mm Hg ; Start 05/04/18 at 09:00 Sodium Chloride (NS) -To prime the dialy... DIRECTED FOR HD PRN IV SBP less than 90 mm Hg ; Start 05/04/18 at 09:00 Insulin Aspart (Novolog Insulin Pen) NOVOLOG *MILD* ALGORI... AC BREAKFAST DINNER SC ; Start 05/05/18 at 07:25 KATHARINE PETERS May 05, 2018 15:01
--- NOTE | 2018-05-05 19:01 | PN ---
DATE: 05/05/2018 SUBJECTIVE: The patient states he is feeling better. He does complain of some pain in right chest a nteriorly. He also has decreased appetite, but no nausea and vomiting. OBJECTIVE: GENERAL: The patient is a well-developed, but chronically appearing male who is in no acute distress . VITAL SIGNS: Temperature 98.1 orally, pulse 75 per minute and regular, respirations 18, blood pressu re 115/55 and pulse oximetry is 95% on 2 liters. SKIN: No ecchymosis, no petechiae or rashes. HEENT: Normocephalic. No evidence of trauma. Pupils are equal, round, reactive to light and accomm odation. Sclerae are nonicteric. Oral mucosa is moist without lesions. Tongue is well papillated. No gingival hyperplasia, no hypertrophy of Waldeyer's ring. NECK: Supple. No jugular venous distention or thyroid enlargement. CHEST: Decreased breath sounds and dullness to percussion on the right hemithorax. No rubs. HEART: Regular sinus rhythm. No S3, S4 or murmurs. ABDOMEN: Distended with possible ascites. EXTREMITIES: No clubbing. No edema or cyanosis. No palpable cords or Homans sign. NEUROLOGIC: Normal except for weakness. There are no focal neurologic abnormalities. LABORATORY: WBC 7800 with absolute neutrophil count of 6500, hemoglobin 9.4, hematocrit 32.4 and patricia telet count 220,000. Sodium 141, potassium 3.8, CO2 of 25, BUN 33, creatinine 2.24, calcium 8.4. ASSESSMENT: 1. Biopsy proven mesothelioma. 2. Renal failure. 3. Confusion, possibly related to renal failure. DISCUSSION: The patient did have altered mental status on admission, but CT scan of the brain did no t show any changes as compared to a similar scan done on 03/22/2018. 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 Ther e is also a finding of a right renal mass. It is unclear whether this is metastatic from the primary mesothelioma or whether it may represent a second malignancy. I have discussed the situation with the patient and his and son. His son provided translation. This patient wishes to have therapy. He was to be seen in the office on 05/03/2018, but did cancel that appointment. If the patient wishes to have chemotherapy, perhaps could initiate therapy while in the hospital. Tr eatment of choice would be pemetrexed in combination with a hopi agent either cisplatin or carbop latin. Dictated By: HIPOLITO NEWMAN MD SR/NTS Conf#: [id number] DID#: [id number] CC: RAYNE FITCH MD; KATHARINE PETERS MD;*EndCC*
[2018-05-05] MEDS: DEXTROSE 5%-0.45% NACL 1,000 ML IV SCH (22:00)
[2018-05-06] VITALS (26 sets, daily range): BP systolic 84–128; BP diastolic 44–58; PULSE 70–131; RESP 17–18
[2018-05-06] MEDS: morphine SULFATE/PF (2 MG/2 ML) SYG IV PRN (01:16)
[2018-05-06] MEDS: ACCU-CHEK XX SCH (01:30)
[2018-05-06] MEDS ORDERED: ACETAMINOPHEN 325 MG TAB PO PRN (04:00)
[2018-05-06] MEDS ORDERED: ACETAMINOPHEN 650MG/20.3ML CUP PO PRN (04:30)
[2018-05-06] MEDS: INSULIN ASPART [NOVOLOG] 3 ML PEN SC SCH ×2 (07:25→17:07)
[2018-05-06] MEDS: ALBUMIN HUMAN 25% 50 ML IV PRN ×2 (09:07→09:56)
--- NOTE | 2018-05-06 13:47 | CONS ---
Date/Time of Note Date/Time of Note DATE: 05/06/18 TIME: 13:47 Assessment/Plan Assessment/Plan Assessment/Plan 1. Acute metabolic encephalopathy 2. Chronic thalamic lacunar infarct 3. ESRD on HD TTS schedule 4. H/o mesothelioma Plan: s/P HD today will keep pt on TTS schedule need family meeting to discuss goals of care will follow up Result Diagram: 05/04/18 0540 05/04/18 0540 Results 24hrs Laboratory Tests Test 05/05/18 16:59 05/05/18 20:38 05/06/18 07:55 Bedside Glucose 135 145 124 Consultation Date/Type/Reason Admit Date/Time May 03, 2018 at 18:02 Initial Consult Date 05/03/18 Type of Consult NEPHROLOGY Requesting Provider: KATHARINE PETERS Exam/Review of Systems Vital Signs Vitals Vital Signs Date Temp Pulse Resp B/P (MAP) Pulse Ox O2 O2 Flow FiO2 Time Delivery Rate 05/06/18 131 12:00 05/06/18 97.7 17 97/54 (68) 98 11:57 05/06/18 Nasal 2.0 09:15 Cannula Intake and Output 05/05/18 05/05/18 05/06/18 1515:00 23:00 07:00 IntakeIntake Total 900 ml 680 ml BalanceBalance 900 ml 680 ml Exam Constitutional: alert Respiratory: clear to auscultation, normal air movement, diminished breath sounds Cardiovascular: regular rate and rhythm, nl pulses Gastrointestinal: soft, non-tender Musculoskeletal: nl extremities to inspection Neurological: alert awake, but sleepy Medications Medications Current Medications Dextrose/Sodium Chloride 1,000 ml @ 40 mls/hr Q24H IV Last administered on 05/05/18at 22:00; Admin Dose 40 MLS/HR; Start 05/03/18 at 19:07 IV Flush (NS 3 ml) 3 ml PER PROTOCOL IV ; Start 05/03/18 at 19:30 Ondansetron HCl (Zofran Inj) 4 mg Q6H PRN IV NAUSEA AND/OR VOMITING; Start 05/03/18 at 19:30 Diagnostic Test (Pha) (Accu-Chek) 1 ea 02 XX ; Start 05/04/18 at 02:00 Hydralazine HCl (Apresoline) 10 mg Q4H PRN IV SBP>170; Start 05/03/18 at 19:30 Miscellaneous Information 1 ea NOTE XX ; Start 05/03/18 at 19:30 Glucose (Glutose) 15 gm Q15M PRN PO DECREASED GLUCOSE; Start 05/03/18 at 19:30 Glucose (Glutose) 22.5 gm Q15M PRN PO DECREASED GLUCOSE; Start 05/03/18 at 19:30 Dextrose (D50w Syringe) 25 ml Q15M PRN IV DECREASED GLUCOSE; Start 05/03/18 at 19:30 Dextrose (D50w Syringe) 50 ml Q15M PRN IV DECREASED GLUCOSE; Start 05/03/18 at 19:30 Glucagon (Glucagen) 1 mg Q15M PRN IM DECREASED GLUCOSE; Start 05/03/18 at 19: 30 Glucose (Glutose) 15 gm Q15M PRN BUCCAL DECREASED GLUCOSE; Start 05/03/18 at 19:30 Morphine Sulfate (morphine SULFATE (PF)) 2 mg Q4H PRN IV SEVERE PAIN LEVEL 7-10 Last administered on 05/06/18at 01:16; Admin Dose 2 MG; Start 05/03/18 at 20:00 Albumin Human 50 ml @ 100 mls/hr WITH DIALYSIS PRN IV SBP less than 90 mm Hg Last administered on 05/06/18at 09:56; Admin Dose 100 MLS/HR; Start 05/04/18 at 09:00 Sodium Chloride (NS) -To prime the dialy... DIRECTED FOR HD PRN IV SBP less than 90 mm Hg ; Start 05/04/18 at 09:00 Insulin Aspart (Novolog Insulin Pen) NOVOLOG *MILD* ALGORI... AC BREAKFAST DINNER SC ; Start 05/05/18 at 07:25 Acetaminophen (Tylenol Liquid) 650 mg Q6H PRN PO MILD PAIN(1-3)OR ELEVATED TEMP; Start 05/06/18 at 04:30 RAYNE FITCH MD May 06, 2018 13:47
--- NOTE | 2018-05-06 14:57 | PN ---
Date/Time of Note Date/Time of Note DATE: 05/06/18 TIME: 14:53 Assessment/Plan VTE Prophylaxis Risk score (from Nsg)>0 risk: 7 SCD applied (from Ns): Yes Pharmacological prophylaxis: other (aspirin) Lines/Catheters IV Catheter Type (from Nrsg): Peripheral IV Assessment/Plan Assessment/Plan Pt is stable but chemotherapy has not been given. With the azotemia, cisplatin may be higher risk. Carboplatin and Alimta could be considered but attenuated dose would be advisable given his poor performance status. I would also not start chemotherapy until he is eating reliably and is more coherent. Result Diagram: 05/04/18 0540 05/04/18 0540 Results 24hrs Laboratory Tests Test 05/05/18 16:59 05/05/18 20:38 05/06/18 07:55 Bedside Glucose 135 145 124 Subjective 24 Hr Interval Summary Free Text/Dictation Pt is lying quietly in bed. is at bedside. Exam/Review of Systems Vital Signs Vitals Vital Signs Date Temp Pulse Resp B/P (MAP) Pulse Ox O2 O2 Flow FiO2 Time Delivery Rate 05/06/18 131 12:00 05/06/18 97.7 17 97/54 (68) 98 11:57 05/06/18 Nasal 2.0 09:15 Cannula Intake and Output 05/05/18 05/05/18 05/06/18 1515:00 23:00 07:00 IntakeIntake Total 900 ml 680 ml BalanceBalance 900 ml 680 ml Exam Constitutional: alert Head: normocephalic Eyes: other (pallor) Respiratory: diminished breath sounds (on right side) Cardiovascular: regular rate and rhythm Gastrointestinal: soft, non-tender Medications Medications Current Medications Dextrose/Sodium Chloride 1,000 ml @ 40 mls/hr Q24H IV Last administered on 05/05/18at 22:00; Admin Dose 40 MLS/HR; Start 05/03/18 at 19:07 IV Flush (NS 3 ml) 3 ml PER PROTOCOL IV ; Start 05/03/18 at 19:30 Ondansetron HCl (Zofran Inj) 4 mg Q6H PRN IV NAUSEA AND/OR VOMITING; Start 05/03/18 at 19:30 Diagnostic Test (Pha) (Accu-Chek) 1 ea 02 XX ; Start 1/1/19 at 02:00 Hydralazine HCl (Apresoline) 10 mg Q4H PRN IV SBP>170; Start 05/03/18 at 19:30 Miscellaneous Information 1 ea NOTE XX ; Start 05/03/18 at 19:30 Glucose (Glutose) 15 gm Q15M PRN PO DECREASED GLUCOSE; Start 05/03/18 at 19:30 Glucose (Glutose) 22.5 gm Q15M PRN PO DECREASED GLUCOSE; Start 05/03/18 at 19:30 Dextrose (D50w Syringe) 25 ml Q15M PRN IV DECREASED GLUCOSE; Start 05/03/18 at 19:30 Dextrose (D50w Syringe) 50 ml Q15M PRN IV DECREASED GLUCOSE; Start 05/03/18 at 19:30 Glucagon (Glucagen) 1 mg Q15M PRN IM DECREASED GLUCOSE; Start 05/03/18 at 19:30 Glucose (Glutose) 15 gm Q15M PRN BUCCAL DECREASED GLUCOSE; Start 05/03/18 at 19:30 Morphine Sulfate (morphine SULFATE (PF)) 2 mg Q4H PRN IV SEVERE PAIN LEVEL 7-10 Last administered on 05/06/18at 01:16; Admin Dose 2 MG; Start 05/03/18 at 20:00 Albumin Human 50 ml @ 100 mls/hr WITH DIALYSIS PRN IV SBP less than 90 mm Hg Last administered on 05/06/18at 09:56; Admin Dose 100 MLS/HR; Start 05/04/18 at 09:00 Sodium Chloride (NS) -To prime the dialy... DIRECTED FOR HD PRN IV SBP less than 90 mm Hg ; Start 05/04/18 at 09:00 Insulin Aspart (Novolog Insulin Pen) NOVOLOG *MILD* ALGORI... AC BREAKFAST DINNER SC ; Start 05/05/18 at 07:25 Acetaminophen (Tylenol Liquid) 650 mg Q6H PRN PO MILD PAIN(1-3)OR ELEVATED TEMP; Start 05/06/18 at 04:30 GILMAR CARRASQUILLO MD May 06, 2018 14:57
--- NOTE | 2018-05-06 17:54 | PN ---
Date/Time of Note Date/Time of Note DATE: 05/06/18 TIME: 17:52 Assessment/Plan VTE Prophylaxis Risk score (from [facility])>0 risk: 7 SCD applied (from [facility]): Yes Pharmacological prophylaxis: NA/contraindicated Pharm contraindication: renal impairment Lines/Catheters IV [facility]ter Type (from [facility]): Peripheral IV Assessment/Plan Hospital Course 1. Acute metabolic encephalopathy secondary to underlying mesothelioma CT head shows advanced atrophy with chronic left thalamic lacunar infarct Patient has not received chemotherapy as of yet No evidence of infection 2. Mesothelioma Oncology consultation appreciated, follow-up with recommendations Patient not a candidate for chemotherapy at this time secondary to poor functional status 3. End-stage renal disease Nephrology consultation obtained for dialysis 4. Chronic left thalamic lacunar infarct No acute issues Prophylaxis: SCDs DC planning: Patient has a poor prognosis, son has agreed for chemotherapy but patient is currently not a candidate due to poor functional status, patient is appropriate for hospice care but family is not agreeable, possible DC home tomorrow Result Diagram: 05/04/18 0540 05/04/18 0540 Results 24hrs Laboratory Tests Test 05/05/18 20:38 05/06/18 07:55 05/06/18 17:06 Bedside Glucose 145 124 151 Subjective 24 Hr Interval Summary Constitutional: disoriented Exam/Review of Systems Vital Signs Vitals Vital Signs Date Temp Pulse Resp B/P (MAP) Pulse Ox O2 O2 Flow FiO2 Time Delivery Rate 05/06/18 80 16:50 05/06/18 97.8 17 100/56 98 15:53 (71) 05/06/18 Nasal 2.0 09:15 Cannula Intake and Output 05/05/18 05/05/18 05/06/18 1515:00 23:00 07:00 IntakeIntake Total 900 ml 680 ml BalanceBalance 900 ml 680 ml Exam Psych: confusion Respiratory: clear to auscultation Cardiovascular: regular rate and rhythm Gastrointestinal: soft; No distended Musculoskeletal: nl extremities to inspection Medications Medications Current Medications Dextrose/Sodium Chloride 1,000 ml @ 40 mls/hr Q24H IV Last administered on 05/05/18at 22:00; Admin Dose 40 MLS/HR; Start 05/03/18 at 19:07 IV Flush (NS 3 ml) 3 ml PER PROTOCOL IV ; Start 05/03/18 at 19:30 Ondansetron HCl (Zofran Inj) 4 mg Q6H PRN IV NAUSEA AND/OR VOMITING; Start at 19:30 Diagnostic Test (Pha) (Accu-Chek) 1 ea 02 XX ; Start 05/04/18 at 02:00 Hydralazine HCl (Apresoline) 10 mg Q4H PRN IV SBP>170; Start 05/03/18 at 19:30 Miscellaneous Information 1 ea NOTE XX ; Start 05/03/18 at 19:30 Glucose (Glutose) 15 gm Q15M PRN PO DECREASED GLUCOSE; Start 05/03/18 at 19:30 Glucose (Glutose) 22.5 gm Q15M PRN PO DECREASED GLUCOSE; Start 05/03/18 at 19:30 Dextrose (D50w Syringe) 25 ml Q15M PRN IV DECREASED GLUCOSE; Start 05/03/18 at 19:30 Dextrose (D50w Syringe) 50 ml Q15M PRN IV DECREASED GLUCOSE; Start 05/03/18 at 19:30 Glucagon (Glucagen) 1 mg Q15M PRN IM DECREASED GLUCOSE; Start 05/03/18 at 19:30 Glucose (Glutose) 15 gm Q15M PRN BUCCAL DECREASED GLUCOSE; Start 05/03/18 at 19:30 Morphine Sulfate (morphine SULFATE (PF)) 2 mg Q4H PRN IV SEVERE PAIN LEVEL 7-10 Last administered on 05/06/18at 01:16; Admin Dose 2 MG; Start 05/03/18 at 20:00 Albumin Human 50 ml @ 100 mls/hr WITH DIALYSIS PRN IV SBP less than 90 mm Hg Last administered on 05/06/18at 09:56; Admin Dose 100 MLS/HR; Start 05/04/18 at 09:00 Sodium Chloride (NS) -To prime the dialy... DIRECTED FOR HD PRN IV SBP less than 90 mm Hg ; Start 05/04/18 at 09:00 Insulin Aspart (Novolog Insulin Pen) NOVOLOG *MILD* ALGORI... AC BREAKFAST DINNER SC ; Start 05/05/18 at 07:25 Acetaminophen (Tylenol Liquid) 650 mg Q6H PRN PO MILD PAIN(1-3)OR ELEVATED TEMP; Start 05/06/18 at 04:30 KATHARINE PETERS May 06, 2018 17:54
[2018-05-06] MEDS: DEXTROSE 5%-0.45% NACL 1,000 ML IV SCH (22:47)
[2018-05-07] VITALS (10 sets, daily range): BP systolic 110–122; BP diastolic 53–57; PULSE 68–80; RESP 16–19
[2018-05-07] MEDS: ACCU-CHEK XX SCH (02:00)
[2018-05-07] MEDS: INSULIN ASPART [NOVOLOG] 3 ML PEN SC SCH ×2 (07:25→16:36)
[2018-05-07] MEDS: morphine SULFATE/PF (2 MG/2 ML) SYG IV PRN (09:20)
[2018-05-07] MEDS ORDERED: CYANOCOBALAMIN 1000 MCG INJ SC ONE (12:00)
--- NOTE | 2018-05-07 12:00 | PN ---
DATE: 05/07/2018 SUBJECTIVE: Patient has no new complaints. Clinical status remains relatively unchanged. OBJECTIVE: GENERAL: The patient is a well-developed, but chronically ill-appearing male who is in no acute dist ress. VITAL SIGNS: Temperature 97.2 orally, pulse 74 per minute and regular, respirations 17, blood pressu re 110/54, pulse oximetry 98% on 3 liters of oxygen by nasal cannula. SKIN: No ecchymosis, no petechiae or rashes but pale. HEENT: Normocephalic. No evidence of trauma. Pupils equal, round, react to light and accommodation . Sclerae nonicteric. Oral mucosa is moist without lesions. There is no scleral icterus. NECK: Supple. No jugular venous distention or thyroid enlargement. CHEST: Decreased breath sounds and dullness to percussion on the right hemithorax. No rubs. HEART: Regular sinus rhythm, no S3, S4 or murmurs. ABDOMEN: Distended, possible ascites. EXTREMITIES: No clubbing. No edema or cyanosis. No palpable cords or Homans sign. NEUROLOGIC: Normal except for extreme weakness. According to patient's son, he is oriented. There is no new laboratory available. ASSESSMENT: 1. Biopsy proven mesothelioma involving the pleura. 2. Renal failure. 3. Confusion, possibly related to renal failure. I have discussed the situation again with the patient and his son, Bk has provided translation. I described therapy to them and explained that the patient will not improve without initiation of linda e type of antitumor therapy. The patient's family is willing to initiate chemotherapy. I have suggested that we use a combination of Pemetrexed, carboplatin, as well as bevacizumab. Will attenuate the doses somewhat because of th e patient's poor functional status. This therapy would be given once every 21 days. After initial therapy, patient could be discharged a nd further therapy would be administered as an outpatient depending upon the patient's response. The patient will be started on Vitamin B12 with 1000 mcg, which he should receive now and monthly as well as folic acid 1 mg daily. This will help minimize toxicity related to Pemetrexed. Dictated By: HIPOLITO NEWMAN MD SR/NTS Conf#: [id number] DID#: [id number] CC: KATHARINE PETERS MD;*EndCC*
[2018-05-07] MEDS: FOLIC ACID 1 MG TAB PO SCH (12:03)
--- NOTE | 2018-05-07 15:25 | PN ---
Date/Time of Note Date/Time of Note DATE: 05/07/18 TIME: 15:25 Assessment/Plan VTE Prophylaxis Risk score (from [facility] [place] risk: 10 SCD applied (from [facility] [place] Yes Pharmacological prophylaxis: NA/contraindicated Pharm contraindication: renal impairment Lines/Catheters IV Catheter Type (from [facility]): Peripheral IV Assessment/Plan Hospital Course 1. Acute metabolic encephalopathy secondary to underlying mesothelioma CT head shows advanced atrophy with chronic left thalamic lacunar infarct Patient has not received chemotherapy as of yet No evidence of infection 2. Mesothelioma Oncology consultation appreciated, plan is to initiate chemotherapy during this hospitalization 3. End-stage renal disease Nephrology consultation obtained for dialysis 4. Chronic left thalamic lacunar infarct No acute issues Prophylaxis: SCDs DC planning: Chemotherapy plan for tonight or tomorrow, DC afterwards Result Diagram: 05/04/18 0540 05/04/18 0540 Results 24hrs Laboratory Tests Test 05/06/18 17:06 05/07/18 07:56 Bedside Glucose 151 134 Subjective 24 Hr Interval Summary Constitutional: disoriented Exam/Review of Systems Vital Signs Vitals Vital Signs Date Temp Pulse Resp B/P (MAP) Pulse Ox O2 O2 Flow FiO2 Time Delivery Rate 05/07/18 97.1 70 16 122/57 95 Nasal 3.0 15:21 (78) Cannula Intake and Output 05/06/18 05/06/18 05/07/18 1515:00 23:00 07:00 IntakeIntake Total 300 ml 570 ml OutputOutput Total 1900 ml BalanceBalance -1900 ml 300 ml 570 ml Exam Psych: confusion Respiratory: clear to auscultation Cardiovascular: regular rate and rhythm Gastrointestinal: soft; No distended Musculoskeletal: nl extremities to inspection Medications Medications Current Medications Dextrose/Sodium Chloride 1,000 ml @ 40 mls/hr Q24H IV Last administered on 05/06/18at 22:47; Admin Dose 40 MLS/HR; Start 05/03/18 at 19:07 IV Flush (NS 3 ml) 3 ml PER PROTOCOL IV ; Start 05/03/18 at 19:30 Ondansetron HCl (Zofran Inj) 4 mg Q6H PRN IV NAUSEA AND/OR VOMITING; Start 05/03/18 at 19:30 Diagnostic Test (Pha) (Accu-Chek) 1 ea 02 XX ; Start 1/1/19 at 02:00 Hydralazine HCl (Apresoline) 10 mg Q4H PRN IV SBP>170; Start 05/03/18 at 19:30 Miscellaneous Information 1 ea NOTE XX ; Start 05/03/18 at 19:30 Glucose (Glutose) 15 gm Q15M PRN PO DECREASED GLUCOSE; Start 05/03/18 at 19:30 Glucose (Glutose) 22.5 gm Q15M PRN PO DECREASED GLUCOSE; Start 05/03/18 at 19:30 Dextrose (D50w Syringe) 25 ml Q15M PRN IV DECREASED GLUCOSE; Start 05/03/18 at 19:30 Dextrose (D50w Syringe) 50 ml Q15M PRN IV DECREASED GLUCOSE; Start 05/03/18 at 19:30 Glucagon (Glucagen) 1 mg Q15M PRN IM DECREASED GLUCOSE; Start 05/03/18 at 19:30 Glucose (Glutose) 15 gm Q15M PRN BUCCAL DECREASED GLUCOSE; Start 05/03/18 at 19:30 Albumin Human 50 ml @ 100 mls/hr WITH DIALYSIS PRN IV SBP less than 90 mm Hg Last administered on 05/06/18at 09:56; Admin Dose 100 MLS/HR; Start 05/04/18 at 09:00 Sodium Chloride (NS) -To prime the dialy... DIRECTED FOR HD PRN IV SBP less than 90 mm Hg ; Start 05/04/18 at 09:00 Insulin Aspart (Novolog Insulin Pen) NOVOLOG *MILD* ALGORI... AC BREAKFAST DINNER SC ; Start 05/05/18 at 07:25 Acetaminophen (Tylenol Liquid) 650 mg Q6H PRN PO MILD PAIN(1-3)OR ELEVATED TEMP; Start 05/06/18 at 04:30 Folic Acid (Folic Acid) 1 mg DAILY PO Last administered on 05/07/18at 12:03; Admin Dose 1 MG; Start 05/07/18 at 11:30 Morphine Sulfate (morphine) 6 mg Q4H PRN PO SEVERE PAIN LEVEL 7-10; Start 05/07/18 at 15:30 KATHARINE PETERS May 07, 2018 15:25
[2018-05-07] MEDS ORDERED: morphine LIQ (10 MG/5 ML) CUP PO PRN (15:30)
--- NOTE | 2018-05-07 17:17 | CONS ---
Date/Time of Note Date/Time of Note DATE: 05/07/18 TIME: 17:17 Assessment/Plan Assessment/Plan Assessment/Plan 1. Acute metabolic encephalopathy 2. Chronic thalamic lacunar infarct 3. ESRD on HD TTS schedule 4. H/o mesothelioma Plan: HD ordered for thursday will keep pt on TTS schedule not doing well, family meeting tomorrow - if family agree, consider palliative care Consult will follow up Result Diagram: 05/04/18 0540 05/04/18 0540 Results 24hrs Laboratory Tests Test 05/07/18 07:56 05/07/18 16:35 Bedside Glucose 134 135 Consultation Date/Type/Reason Admit Date/Time May 03, 2018 at 18:02 Initial Consult Date 05/03/18 Type of Consult NEPHROLOGY Requesting Provider: KATHARINE PETERS Exam/Review of Systems Vital Signs Vitals Vital Signs Date Temp Pulse Resp B/P (MAP) Pulse Ox O2 O2 Flow FiO2 Time Delivery Rate 05/07/18 70 16:32 05/07/18 97.1 16 122/57 95 Nasal 3.0 15:21 (78) Cannula Intake and Output 05/06/18 05/06/18 05/07/18 1515:00 23:00 07:00 IntakeIntake Total 300 ml 570 ml OutputOutput Total 1900 ml BalanceBalance -1900 ml 300 ml 570 ml Exam Constitutional: alert Respiratory: clear to auscultation, normal air movement, diminished breath sounds Cardiovascular: regular rate and rhythm, nl pulses Gastrointestinal: soft, non-tender Musculoskeletal: nl extremities to inspection Neurological: alert awake, but sleepy Medications Medications Current Medications Dextrose/Sodium Chloride 1,000 ml @ 40 mls/hr Q24H IV Last administered on 05/06/18at 22:47; Admin Dose 40 MLS/HR; Start 05/03/18 at 19:07 IV Flush (NS 3 ml) 3 ml PER PROTOCOL IV ; Start 05/03/18 at 19:30 Ondansetron HCl (Zofran Inj) 4 mg Q6H PRN IV NAUSEA AND/OR VOMITING; Start at 19:30 Diagnostic Test (Pha) (Accu-Chek) 1 ea 02 XX ; Start 05/04/18 at 02:00 Hydralazine HCl (Apresoline) 10 mg Q4H PRN IV SBP>170; Start 05/03/18 at 19:30 Miscellaneous Information 1 ea NOTE XX ; Start 05/03/18 at 19:30 Glucose (Glutose) 15 gm Q15M PRN PO DECREASED GLUCOSE; Start 05/03/18 at 19:30 Glucose (Glutose) 22.5 gm Q15M PRN PO DECREASED GLUCOSE; Start 05/03/18 at 19:30 Dextrose (D50w Syringe) 25 ml Q15M PRN IV DECREASED GLUCOSE; Start 05/03/18 at 19:30 Dextrose (D50w Syringe) 50 ml Q15M PRN IV DECREASED GLUCOSE; Start 05/03/18 at 19:30 Glucagon (Glucagen) 1 mg Q15M PRN IM DECREASED GLUCOSE; Start 05/03/18 at 19:30 Glucose (Glutose) 15 gm Q15M PRN BUCCAL DECREASED GLUCOSE; Start 05/03/18 at 19:30 Albumin Human 50 ml @ 100 mls/hr WITH DIALYSIS PRN IV SBP less than 90 mm Hg Last administered on 05/06/18at 09:56; Admin Dose 100 MLS/HR; Start 05/04/18 at 09:00 Sodium Chloride (NS) -To prime the dialy... DIRECTED FOR HD PRN IV SBP less than 90 mm Hg ; Start 05/04/18 at 09:00 Insulin Aspart (Novolog Insulin Pen) NOVOLOG *MILD* ALGORI... AC BREAKFAST DINNER SC ; Start 05/05/18 at 07:25 Acetaminophen (Tylenol Liquid) 650 mg Q6H PRN PO MILD PAIN(1-3)OR ELEVATED TEMP; Start 05/06/18 at 04:30 Folic Acid (Folic Acid) 1 mg DAILY PO Last administered on 05/07/18at 12:03; Admin Dose 1 MG; Start 05/07/18 at 11:30 Morphine Sulfate (morphine) 6 mg Q4H PRN PO SEVERE PAIN LEVEL 7-10; Start 05/07/18 at 15:30 RAYNE FITCH MD May 07, 2018 17:17
[2018-05-07] MEDS: DEXTROSE 5%-0.45% NACL 1,000 ML IV SCH (21:29)
[2018-05-07] MEDS ORDERED: NALOXONE (0.4 MG/ML) INJ IV ONE (23:30)
[2018-05-08] VITALS (32 sets, daily range): BP systolic 93–121; BP diastolic 40–60; PULSE 60–105; RESP 18–73
[2018-05-08] MEDS: ACCU-CHEK XX SCH (02:00)
[2018-05-08] MEDS: INSULIN ASPART [NOVOLOG] 3 ML PEN SC SCH ×2 (07:25→17:07)
[2018-05-08] MEDS: FOLIC ACID 1 MG TAB PO SCH (08:07)
[2018-05-08] MEDS: HEPARIN 5,000 UNIT/1 ML VIAL SC SCH ×2 (08:16→21:00)
--- NOTE | 2018-05-08 09:12 | CONS ---
Date/Time of Note Date/Time of Note DATE: 05/08/18 TIME: 09:09 Consult Date/Type/Reason Admit Date/Time May 03, 2018 at 18:02 Initial Consult Date 05/03/18 Requesting Provider: KATHARINE PETERS Subjective Fatigued. Required Bipap overnight. Objective Vital Signs Date Temp Pulse Resp B/P (MAP) Pulse Ox O2 O2 Flow FiO2 Time Delivery Rate 05/08/18 97.7 70 18 120/60 100 BIPAP 07:37 (80) 05/08/18 30 07:18 05/08/18 4.0 05:23 Intake and Output 05/07/18 05/07/18 05/08/18 1515:00 23:00 07:00 IntakeIntake Total 300 ml 150 ml OutputOutput Total 1 ml BalanceBalance 300 ml 149 ml Exam Awake/Following simple commands Weakened condition Decreased BS at the bases RRR no m/g/r Soft, NT, ND, +BS Thin extremities No c/c/e Results/Medications Result Diagram: 05/07/18 2353 05/07/18 2353 Results 24 hrs Laboratory Tests Test 05/07/18 16:35 05/07/18 22:42 05/07/18 22:51 05/07/18 23:53 Bedside Glucose 135 141 Blood Gas Blood arterial Specimen Source Arterial Blood 05/07/2018 11:00: Date Drawn 19 PM Arterial Blood 7.225 *L pH (Temp corrected ) Arterial Blood 68.3 H pCO2 (Temp correct) Arterial Blood 80.3 pO2 (Temp corrected ) Arterial Blood 27.6 H HCO3 Arterial Blood -1.1 Base Excess Arterial Blood 94.7 L Oxygen Saturati on Baldev Test ACCEPTAB Arterial Blood Right Radial Gas Puncture Site Arterial 1.2 Blood Carboxyhe moglobin Arterial Blood 0.3 Methemoglobin Blood Gas A-a 53.4 H O2 Differential Oxyhemoglobin 93.3 Percent Blood Gas 37.0 Temperature Blood Gas NASAL CANNULA Modality FiO2 30.0 Blood Gas ERIKA SÁNCHEZ Critical Value Read Back Blood Gas D Notified Whom Blood Gas 05/07/2018 11:08: Notified Time 22 PM White Blood 5.6 # Count Red Blood Count 4.28 L Hemoglobin 10.8 L Hematocrit 37.5 L Mean 87.6 Corpuscular Volume Mean 25.2 L Corpuscular Hemoglobin Mean 28.8 L Corpuscular Hemoglobin Conc ent Red Cell 17.2 H Distribution Width Platelet Count 194 Mean Platelet 9.6 Volume Immature 1.100 H Granulocytes % Neutrophils % 80.9 H Lymphocytes % 8.1 L Monocytes % 9.3 Eosinophils % 0.2 Basophils % 0.4 Nucleated Red 0.0 Blood Cells % Immature 0.060 H Granulocytes # Neutrophils # 4.5 Lymphocytes # 0.5 L Monocytes # 0.5 Eosinophils # 0.0 Basophils # 0.0 Nucleated Red 0.0 Blood Cells # Sodium Level 135 Potassium Level 4.3 Chloride Level 94 L Carbon Dioxide 27 Level Anion Gap 14 H Blood Urea 33 H Nitrogen Creatinine 2.76 H Est Glomerular Filtrat Rate mL/min Glucose Level 154 Calcium Level 8.8 Test 05/08/18 00:51 05/08/18 05:00 05/08/18 07:43 Blood Gas Blood arterial Blood arterial Specimen Source Arterial Blood 05/08/2018 2:02:4 05/08/2018 5:20:0 Date Drawn 3 AM 2 AM Arterial Blood 7.209 *L 7.273 *L pH (Temp corrected ) Arterial Blood 74.0 H 71.1 H pCO2 (Temp correct) Arterial Blood 99.5 H 84.9 pO2 (Temp corrected ) Arterial Blood 28.9 H 32.1 H HCO3 Arterial Blood -0.3 3.8 H Base Excess Arterial Blood 96.7 96.2 Oxygen Saturati on Baldev Test ACCEPTAB ACCEPTAB Arterial Blood Right Radial Right Radial Gas Puncture Site Arterial 1.1 1.3 Blood Carboxyhe moglobin Arterial Blood 0.3 0.3 Methemoglobin Blood Gas A-a 49.4 H 45.5 H O2 Differential Oxyhemoglobin 95.3 94.7 Percent Blood Gas 37.0 37.0 Temperature Blood Gas NASAL CANNULA BIPAP Modality FiO2 33.0 30.0 Blood Gas ERIKA MCCOY RN Critical Value Read Back Blood Gas JEFFD RIGO Notified Whom Blood Gas 05/08/2018 2:17:1 05/08/2018 5:29:5 Notified Time 5 AM 1 AM Blood Gas 16.0 Respiration Rate Blood Gas 22 Actual Respiration Rat e Blood Gas 20/5 IPAP/EPAP Ratio Bedside Glucose 117 Medications Current Medications Dextrose/Sodium Chloride 1,000 ml @ 40 mls/hr Q24H IV Last administered on 05/07/18at 21:29; Admin Dose 40 MLS/HR; Start 05/03/18 at 19:07 IV Flush (NS 3 ml) 3 ml PER PROTOCOL IV ; Start 05/03/18 at 19:30 Ondansetron HCl (Zofran Inj) 4 mg Q6H PRN IV NAUSEA AND/OR VOMITING; Start 05/03/18 at 19:30 Diagnostic Test (Pha) (Accu-Chek) 1 ea 02 XX ; Start 05/04/18 at 02:00 Hydralazine HCl (Apresoline) 10 mg Q4H PRN IV SBP>170; Start 05/03/18 at 19:30 Miscellaneous Information 1 ea NOTE XX ; Start 05/03/18 at 19:30 Glucose (Glutose) 15 gm Q15M PRN PO DECREASED GLUCOSE; Start 05/03/18 at 19:30 Glucose (Glutose) 22.5 gm Q15M PRN PO DECREASED GLUCOSE; Start 05/03/18 at 19:30 Dextrose (D50w Syringe) 25 ml Q15M PRN IV DECREASED GLUCOSE; Start 05/03/18 at 19:30 Dextrose (D50w Syringe) 50 ml Q15M PRN IV DECREASED GLUCOSE; Start 05/03/18 at 19:30 Glucagon (Glucagen) 1 mg Q15M PRN IM DECREASED GLUCOSE; Start 05/03/18 at 19:30 Glucose (Glutose) 15 gm Q15M PRN BUCCAL DECREASED GLUCOSE; Start 05/03/18 at 19:30 Albumin Human 50 ml @ 100 mls/hr WITH DIALYSIS PRN IV SBP less than 90 mm Hg Last administered on 05/06/18at 09:56; Admin Dose 100 MLS/HR; Start 05/04/18 at 09:00 Sodium Chloride (NS) -To prime the dialy... DIRECTED FOR HD PRN IV SBP less than 90 mm Hg ; Start 05/04/18 at 09:00 Insulin Aspart (Novolog Insulin Pen) NOVOLOG *MILD* ALGORI... AC BREAKFAST DINNER SC ; Start 05/05/18 at 07:25 Acetaminophen (Tylenol Liquid) 650 mg Q6H PRN PO MILD PAIN(1-3)OR ELEVATED T EMP; Start 05/06/18 at 04:30 Folic Acid (Folic Acid) 1 mg DAILY PO Last administered on 05/08/18at 08:07; Admin Dose 1 MG; Start 05/07/18 at 11:30 Morphine Sulfate (morphine) 6 mg Q4H PRN PO SEVERE PAIN LEVEL 7-10; Start 05/07/18 at 15:30 Heparin Sodium (Porcine) (Heparin (5000 Units/1ml)) 5,000 unit Q12 SC Last administered on 05/08/18at 08:16; Admin Dose 5,000 UNIT; Start 05/08/18 at 09:00 Assessment/Plan Chief Complaint/Hosp Course Pt with h/o ESRD on HD and extensive pleural mesothelioma. Pt apparently going to start on carbo/pemetrexed/bevacizumab per Dr. Levin. I would be somewhat hesitant giving this pt pemetrexed in light of his renal failure. I will discuss this administration of this drug with Dr. Levin who returns on Thursday. Poor overall prognosis. Continue supportive care. HD today. Maciej Cuevas MD Heme/Onc MACIEJ CUEVAS May 08, 2018 09:12
[2018-05-08] MEDS: ALBUMIN HUMAN 25% 50 ML IV PRN (12:04)
--- NOTE | 2018-05-08 12:51 | PN ---
Date/Time of Note Date/Time of Note DATE: 05/08/18 TIME: 12:49 Assessment/Plan VTE Prophylaxis Risk score (from [facility] [place])>0 risk: 10 SCD applied (from [facility] [place]): Yes Pharmacological prophylaxis: NA/contraindicated Pharm contraindication: renal impairment Lines/Catheters IV Catheter Type (from [facility]): Peripheral IV Assessment/Plan Hospital Course 1. Acute metabolic encephalopathy secondary to underlying mesothelioma and hypercapnia CT head shows advanced atrophy with chronic left thalamic lacunar infarct Patient had a rapid response last night, ABG shows hypercapnia and respiratory acidosis, patient started on BiPAP but did not tolerate Patient awaiting to receive chemotherapy, possibly this evening No evidence of infection 2. Mesothelioma Oncology consultation appreciated, plan is to initiate chemotherapy during this hospitalization 3. End-stage renal disease Nephrology for dialysis 4. Chronic left thalamic lacunar infarct No acute issues Prophylaxis: SCDs DC planning: Chemotherapy plan for tonight or tomorrow, patient with poor prognosis Result Diagram: 05/07/18 2353 05/07/18 2353 Results 24hrs Laboratory Tests Test 05/07/18 16:35 05/07/18 22:42 05/07/18 22:51 05/07/18 23:53 Bedside Glucose 135 141 Blood Gas Blood arterial Specimen Source Arterial Blood 05/07/2018 11:00: Date Drawn 19 PM Arterial Blood 7.225 *L pH (Temp corrected ) Arterial Blood 68.3 H pCO2 (Temp correct) Arterial Blood 80.3 pO2 (Temp corrected ) Arterial Blood 27.6 H HCO3 Arterial Blood -1.1 Base Excess Arterial Blood 94.7 L Oxygen Saturati on Baldev Test ACCEPTAB Arterial Blood Right Radial Gas Puncture Site Arterial 1.2 Blood Carboxyhe moglobin Arterial Blood 0.3 Methemoglobin Blood Gas A-a 53.4 H O2 Differential Oxyhemoglobin 93.3 Percent Blood Gas 37.0 Temperature Blood Gas NASAL CANNULA Modality FiO2 30.0 Blood Gas ERIKA SÁNCHEZ Critical Value Read Back Blood Gas D Notified Whom Blood Gas 05/07/2018 11:08: Notified Time 22 PM White Blood 5.6 # Count Red Blood Count 4.28 L Hemoglobin 10.8 L Hematocrit 37.5 L Mean 87.6 Corpuscular Volume Mean 25.2 L Corpuscular Hemoglobin Mean 28.8 L Corpuscular Hemoglobin Conc ent Red Cell 17.2 H Distribution Width Platelet Count 194 Mean Platelet 9.6 Volume Immature 1.100 H Granulocytes % Neutrophils % 80.9 H Lymphocytes % 8.1 L Monocytes % 9.3 Eosinophils % 0.2 Basophils % 0.4 Nucleated Red 0.0 Blood Cells % Immature 0.060 H Granulocytes # Neutrophils # 4.5 Lymphocytes # 0.5 L Monocytes # 0.5 Eosinophils # 0.0 Basophils # 0.0 Nucleated Red 0.0 Blood Cells # Sodium Level 135 Potassium Level 4.3 Chloride Level 94 L Carbon Dioxide 27 Level Anion Gap 14 H Blood Urea 33 H Nitrogen Creatinine 2.76 H Est Glomerular Filtrat Rate mL/min Glucose Level 154 Calcium Level 8.8 Test 05/08/18 00:51 05/08/18 05:00 05/08/18 07:43 Blood Gas Blood arterial Blood arterial Specimen Source Arterial Blood 05/08/2018 2:02:4 05/08/2018 5:20:0 Date Drawn 3 AM 2 AM Arterial Blood 7.209 *L 7.273 *L pH (Temp corrected ) Arterial Blood 74.0 H 71.1 H pCO2 (Temp correct) Arterial Blood 99.5 H 84.9 pO2 (Temp corrected ) Arterial Blood 28.9 H 32.1 H HCO3 Arterial Blood -0.3 3.8 H Base Excess Arterial Blood 96.7 96.2 Oxygen Saturati on Baldev Test ACCEPTAB ACCEPTAB Arterial Blood Right Radial Right Radial Gas Puncture Site Arterial 1.1 1.3 Blood Carboxyhe moglobin Arterial Blood 0.3 0.3 Methemoglobin Blood Gas A-a 49.4 H 45.5 H O2 Differential Oxyhemoglobin 95.3 94.7 Percent Blood Gas 37.0 37.0 Temperature Blood Gas NASAL CANNULA BIPAP Modality FiO2 33.0 30.0 Blood Gas ERIKA MCCOY RN Critical Value Read Back Blood Gas RIGO SIERRA Notified Whom Blood Gas 05/08/2018 2:17:1 05/08/2018 5:29:5 Notified Time 5 AM 1 AM Blood Gas 16.0 Respiration Rate Blood Gas 22 Actual Respiration Rat e Blood Gas 20/5 IPAP/EPAP Ratio Bedside Glucose 117 Subjective 24 Hr Interval Summary Constitutional: disoriented Exam/Review of Systems Vital Signs Vitals Vital Signs Date Temp Pulse Resp B/P (MAP) Pulse Ox O2 O2 Flow FiO2 Time Delivery Rate 05/08/18 98.0 78 19 113/52 93 Nasal 12:22 (72) Cannula 05/08/18 20 09:26 05/08/18 4.0 05:23 Intake and Output 05/07/18 05/07/18 05/08/18 1515:00 23:00 07:00 IntakeIntake Total 300 ml 150 ml OutputOutput Total 1 ml BalanceBalance 300 ml 149 ml Exam Psych: confusion Respiratory: clear to auscultation Cardiovascular: regular rate and rhythm Gastrointestinal: soft; No distended Musculoskeletal: nl extremities to inspection Medications Medications Current Medications Dextrose/Sodium Chloride 1,000 ml @ 40 mls/hr Q24H IV Last administered on 05/07/18at 21:29; Admin Dose 40 MLS/HR; Start 05/03/18 at 19:07 IV Flush (NS 3 ml) 3 ml PER PROTOCOL IV ; Start 05/03/18 at 19:30 Ondansetron HCl (Zofran Inj) 4 mg Q6H PRN IV NAUSEA AND/OR VOMITING; Start 05/03/18 at 19:30 Diagnostic Test (Pha) (Accu-Chek) 1 ea 02 XX ; Start 05/04/18 at 02:00 Hydralazine HCl (Apresoline) 10 mg Q4H PRN IV SBP>170; Start 05/03/18 at 19:30 Miscellaneous Information 1 ea NOTE XX ; Start 05/03/18 at 19:30 Glucose (Glutose) 15 gm Q15M PRN PO DECREASED GLUCOSE; Start 05/03/18 at 19:30 Glucose (Glutose) 22.5 gm Q15M PRN PO DECREASED GLUCOSE; Start 05/03/18 at 19:30 Dextrose (D50w Syringe) 25 ml Q15M PRN IV DECREASED GLUCOSE; Start 05/03/18 at 19:30 Dextrose (D50w Syringe) 50 ml Q15M PRN IV DECREASED GLUCOSE; Start 05/03/18 at 19:30 Glucagon (Glucagen) 1 mg Q15M PRN IM DECREASED GLUCOSE; Start 05/03/18 at 19:30 Glucose (Glutose) 15 gm Q15M PRN BUCCAL DECREASED GLUCOSE; Start 05/03/18 at 19:30 Albumin Human 50 ml @ 100 mls/hr WITH DIALYSIS PRN IV SBP less than 90 mm Hg Last administered on 05/08/18at 12:04; Admin Dose 100 MLS/HR; Start 05/04/18 at 09:00 Sodium Chloride (NS) -To prime the dialy... DIRECTED FOR HD PRN IV SBP less than 90 mm Hg ; Start 05/04/18 at 09:00 Insulin Aspart (Novolog Insulin Pen) NOVOLOG *MILD* ALGORI... AC BREAKFAST DINNER SC ; Start 05/05/18 at 07:25 Acetaminophen (Tylenol Liquid) 650 mg Q6H PRN PO MILD PAIN(1-3)OR ELEVATED TEMP; Start 05/06/18 at 04:30 Folic Acid (Folic Acid) 1 mg DAILY PO Last administered on 05/08/18at 08:07; Admin Dose 1 MG; Start 05/07/18 at 11:30 Morphine Sulfate (morphine) 6 mg Q4H PRN PO SEVERE PAIN LEVEL 7-10; Start 05/07/18 at 15:30 Heparin Sodium (Porcine) (Heparin (5000 Units/1ml)) 5,000 unit Q12 SC Last administered on 05/08/18at 08:16; Admin Dose 5,000 UNIT; Start 05/08/18 at 09:00 KATHARINE PETERS May 08, 2018 12:51
--- NOTE | 2018-05-08 13:20 | CONS ---
Date/Time of Note Date/Time of Note DATE: 05/08/18 TIME: 13:20 Assessment/Plan Assessment/Plan Assessment/Plan 1. Acute metabolic encephalopathy 2. Chronic thalamic lacunar infarct 3. ESRD on HD TTS schedule 4. H/o mesothelioma Plan: BP dropped during HD today, had a 2.5 hr HD today will keep pt on TTS schedule not doing well, family meeting tomorrow - if family agree, consider palliative care Consult will follow up Result Diagram: 05/07/18 2353 05/07/18 2353 Results 24hrs Laboratory Tests Test 05/07/18 16:35 05/07/18 22:42 05/07/18 22:51 05/07/18 23:53 Bedside Glucose 135 141 Blood Gas Blood arterial Specimen Source Arterial Blood 05/07/2018 11:00: Date Drawn 19 PM Arterial Blood 7.225 *L pH (Temp corrected ) Arterial Blood 68.3 H pCO2 (Temp correct) Arterial Blood 80.3 pO2 (Temp corrected ) Arterial Blood 27.6 H HCO3 Arterial Blood -1.1 Base Excess Arterial Blood 94.7 L Oxygen Saturati on Baldev Test ACCEPTAB Arterial Blood Right Radial Gas Puncture Site Arterial 1.2 Blood Carboxyhe moglobin Arterial Blood 0.3 Methemoglobin Blood Gas A-a 53.4 H O2 Differential Oxyhemoglobin 93.3 Percent Blood Gas 37.0 Temperature Blood Gas NASAL CANNULA Modality FiO2 30.0 Blood Gas ERIKA SÁNCHEZ Critical Value Read Back Blood Gas D Notified Whom Blood Gas 05/07/2018 11:08: Notified Time 22 PM White Blood 5.6 # Count Red Blood Count 4.28 L Hemoglobin 10.8 L Hematocrit 37.5 L Mean 87.6 Corpuscular Volume Mean 25.2 L Corpuscular Hemoglobin Mean 28.8 L Corpuscular Hemoglobin Conc ent Red Cell 17.2 H Distribution Width Platelet Count 194 Mean Platelet 9.6 Volume Immature 1.100 H Granulocytes % Neutrophils % 80.9 H Lymphocytes % 8.1 L Monocytes % 9.3 Eosinophils % 0.2 Basophils % 0.4 Nucleated Red 0.0 Blood Cells % Immature 0.060 H Granulocytes # Neutrophils # 4.5 Lymphocytes # 0.5 L Monocytes # 0.5 Eosinophils # 0.0 Basophils # 0.0 Nucleated Red 0.0 Blood Cells # Sodium Level 135 Potassium Level 4.3 Chloride Level 94 L Carbon Dioxide 27 Level Anion Gap 14 H Blood Urea 33 H Nitrogen Creatinine 2.76 H Est Glomerular Filtrat Rate mL/min Glucose Level 154 Calcium Level 8.8 Test 05/08/18 00:51 05/08/18 05:00 05/08/18 07:43 Blood Gas Blood arterial Blood arterial Specimen Source Arterial Blood 05/08/2018 2:02:4 05/08/2018 5:20:0 Date Drawn 3 AM 2 AM Arterial Blood 7.209 *L 7.273 *L pH (Temp corrected ) Arterial Blood 74.0 H 71.1 H pCO2 (Temp correct) Arterial Blood 99.5 H 84.9 pO2 (Temp corrected ) Arterial Blood 28.9 H 32.1 H HCO3 Arterial Blood -0.3 3.8 H Base Excess Arterial Blood 96.7 96.2 Oxygen Saturati on Baldev Test ACCEPTAB ACCEPTAB Arterial Blood Right Radial Right Radial Gas Puncture Site Arterial 1.1 1.3 Blood Carboxyhe moglobin Arterial Blood 0.3 0.3 Methemoglobin Blood Gas A-a 49.4 H 45.5 H O2 Differential Oxyhemoglobin 95.3 94.7 Percent Blood Gas 37.0 37.0 Temperature Blood Gas NASAL CANNULA BIPAP Modality FiO2 33.0 30.0 Blood Gas ERIKA MCCOY RN Critical Value Read Back Blood Gas JMD RIGO Notified Whom Blood Gas 05/08/2018 2:17:1 05/08/2018 5:29:5 Notified Time 5 AM 1 AM Blood Gas 16.0 Respiration Rate Blood Gas 22 Actual Respiration Rat e Blood Gas 20/5 IPAP/EPAP Ratio Bedside Glucose 117 Consultation Date/Type/Reason Admit Date/Time May 03, 2018 at 18:02 Initial Consult Date 05/03/18 Type of Consult NEPHROLOGY Requesting Provider: KATHARINE PETERS 24 HR Interval Summary Free Text/Dictation BP dropped during HD today, had a 2.5 hr HD today Exam/Review of Systems Vital Signs Vitals Vital Signs Date Temp Pulse Resp B/P (MAP) Pulse Ox O2 O2 Flow FiO2 Time Delivery Rate 05/08/18 98.0 78 19 113/52 93 Nasal 12:22 (72) Cannula 05/08/18 20 09:26 05/08/18 4.0 05:23 Intake and Output 05/07/18 05/07/1819 1515:00 23:00 07:00 IntakeIntake Total 300 ml 150 ml OutputOutput Total 1 ml BalanceBalance 300 ml 149 ml Medications Medications Current Medications Dextrose/Sodium Chloride 1,000 ml @ 40 mls/hr Q24H IV Last administered on 05/07/18at 21:29; Admin Dose 40 MLS/HR; Start 05/03/18 at 19:07 IV Flush (NS 3 ml) 3 ml PER PROTOCOL IV ; Start 05/03/18 at 19:30 Ondansetron HCl (Zofran Inj) 4 mg Q6H PRN IV NAUSEA AND/OR VOMITING; Start 05/03/18 at 19:30 Diagnostic Test (Pha) (Accu-Chek) 1 ea 02 XX ; Start 05/04/18 at 02:00 Hydralazine HCl (Apresoline) 10 mg Q4H PRN IV SBP>170; Start 05/03/18 at 19:30 Miscellaneous Information 1 ea NOTE XX ; Start 05/03/18 at 19:30 Glucose (Glutose) 15 gm Q15M PRN PO DECREASED GLUCOSE; Start 05/03/18 at 19:30 Glucose (Glutose) 22.5 gm Q15M PRN PO DECREASED GLUCOSE; Start 05/03/18 at 19:30 Dextrose (D50w Syringe) 25 ml Q15M PRN IV DECREASED GLUCOSE; Start 05/03/18 at 19:30 Dextrose (D50w Syringe) 50 ml Q15M PRN IV DECREASED GLUCOSE; Start 05/03/18 at 19:30 Glucagon (Glucagen) 1 mg Q15M PRN IM DECREASED GLUCOSE; Start 05/03/18 at 19:30 Glucose (Glutose) 15 gm Q15M PRN BUCCAL DECREASED GLUCOSE; Start 05/03/18 at 19:30 Albumin Human 50 ml @ 100 mls/hr WITH DIALYSIS PRN IV SBP less than 90 mm Hg Last administered on 05/08/18at 12:04; Admin Dose 100 MLS/HR; Start 05/04/18 at 09:00 Sodium Chloride (NS) -To prime the dialy... DIRECTED FOR HD PRN IV SBP less than 90 mm Hg ; Start 05/04/18 at 09:00 Insulin Aspart (Novolog Insulin Pen) NOVOLOG *MILD* ALGORI... AC BREAKFAST DINNER SC ; Start 05/05/18 at 07:25 Acetaminophen (Tylenol Liquid) 650 mg Q6H PRN PO MILD PAIN(1-3)OR ELEVATED TEMP; Start 05/06/18 at 04:30 Folic Acid (Folic Acid) 1 mg DAILY PO Last administered on 05/08/18at 08:07; Admin Dose 1 MG; Start 05/07/18 at 11:30 Morphine Sulfate (morphine) 6 mg Q4H PRN PO SEVERE PAIN LEVEL 7-10; Start 05/07/18 at 15:30 Heparin Sodium (Porcine) (Heparin (5000 Units/1ml)) 5,000 unit Q12 SC Last administered on 05/08/18at 08:16; Admin Dose 5,000 UNIT; Start 05/08/18 at 09:00 RAYNE FITCH MD May 08, 2018 13:20
[2018-05-08] MEDS: DEXTROSE 5%-0.45% NACL 1,000 ML IV SCH (21:54)
[2018-05-09] VITALS (17 sets, daily range): BP systolic 100–127; BP diastolic 52–60; PULSE 68–132; RESP 18–20
[2018-05-09] MEDS: ACCU-CHEK XX SCH (02:00)
[2018-05-09] MEDS: INSULIN ASPART [NOVOLOG] 3 ML PEN SC SCH ×2 (07:25→17:25)
[2018-05-09] MEDS: FOLIC ACID 1 MG TAB PO SCH (08:21)
[2018-05-09] MEDS: HEPARIN 5,000 UNIT/1 ML VIAL SC SCH ×2 (08:25→20:33)
--- NOTE | 2018-05-09 08:41 | CONS ---
Date/Time of Note Date/Time of Note DATE: 05/09/18 TIME: 08:39 Consult Date/Type/Reason Admit Date/Time May 03, 2018 at 18:02 Initial Consult Date 05/03/18 Requesting Provider: KATHARINE PETERS Subjective Pt underwent HD last night. 1.2 L out. Less sob. Remains overall lethargic in bed. Objective Vital Signs Date Temp Pulse Resp B/P (MAP) Pulse Ox O2 O2 Flow FiO2 Time Delivery Rate 05/09/18 98.1 74 18 120/59 99 Nasal 07:44 (79) Cannula 05/09/18 30 03:15 05/09/18 4.0 01:42 Intake and Output 05/08/18 05/08/18 05/09/18 1515:00 23:00 07:00 IntakeIntake Total 720 ml OutputOutput Total 2200 ml BalanceBalance -2200 ml 720 ml Exam Awake/Alert/Fatigued appearing Thin/Cachectic Decreased BS right base RRR no m/g/r Soft, NT, ND, +BS Thin extremities Left UE fistula Results/Medications Result Diagram: 05/09/18 0545 05/09/18 0545 Results 24 hrs Laboratory Tests Test 05/08/18 17:06 05/08/18 21:46 05/09/18 04:00 05/09/18 05:45 Bedside Glucose 142 171 Blood Gas Specimen Blood arterial Source Arterial Blood 05/09/2018 5:02:09 Date Drawn AM Arterial Blood pH 7.274 *L (Temp corrected) Arterial Blood 61.1 H pCO2 (Temp correct) Arterial Blood pO2 88.8 (Temp corrected) Arterial Blood 27.7 H HCO3 Arterial Blood 0.2 Base Excess Arterial Blood 96.3 Oxygen Saturation Baldev Test ACCEPTAB Arterial Blood Gas Right Radial Puncture Site Arterial 1.0 Blood Carboxyhemog lobin Arterial Blood 0.3 Methemoglobin Blood Gas A-a O2 126.1 H Differential Oxyhemoglobin 95.0 Percent Blood Gas 37.0 Temperature Blood Gas 16.0 Respiration Rate Blood Gas Actual 22 Respiration Rate Blood Gas Modality MASK - BIPAP FiO2 40.0 Blood Gas Pressure 15 Support Blood Gas 20/5 IPAP/EPAP Ratio Blood Gas Critical E.CHU RN Value Read Back Blood Gas Notified KM Whom Blood Gas Notified 05/09/2018 5:19:05 Time AM White Blood Count 5.8 Red Blood Count 3.66 L Hemoglobin 9.3 L Hematocrit 31.6 L Mean Corpuscular 86.3 Volume Mean Corpuscular 25.4 L Hemoglobin Mean Corpuscular 29.4 L Hemoglobin Concent Red Cell 17.3 H Distribution Width Platelet Count 195 Mean Platelet 10.5 H Volume Immature 1.000 H Granulocytes % Neutrophils % 81.4 H Lymphocytes % 8.3 L Monocytes % 8.8 Eosinophils % 0.2 Basophils % 0.3 Nucleated Red 0.0 Blood Cells % Immature 0.060 H Granulocytes # Neutrophils # 4.7 Lymphocytes # 0.5 L Monocytes # 0.5 Eosinophils # 0.0 Basophils # 0.0 Nucleated Red 0.0 Blood Cells # Sodium Level 134 L Potassium Level 4.5 Chloride Level 98 Carbon Dioxide 29 Level Anion Gap 7 Blood Urea 28 H Nitrogen Creatinine 2.42 H Est Glomerular Filtrat Rate mL/min Glucose Level 138 Calcium Level 8.6 Test 05/09/18 07:29 Bedside Glucose 139 Medications Current Medications Dextrose/Sodium Chloride 1,000 ml @ 40 mls/hr Q24H IV Last administered on 05/08/18at 21:54; Admin Dose 40 MLS/HR; Start 05/03/18 at 19:07 IV Flush (NS 3 ml) 3 ml PER PROTOCOL IV ; Start 05/03/18 at 19:30 Ondansetron HCl (Zofran Inj) 4 mg Q6H PRN IV NAUSEA AND/OR VOMITING; Start 05/03/18 at 19:30 Diagnostic Test (Pha) (Accu-Chek) 1 ea 02 XX ; Start 05/04/18 at 02:00 Hydralazine HCl (Apresoline) 10 mg Q4H PRN IV SBP>170; Start 05/03/18 at 19:30 Miscellaneous Information 1 ea NOTE XX ; Start 05/03/18 at 19:30 Glucose (Glutose) 15 gm Q15M PRN PO DECREASED GLUCOSE; Start 05/03/18 at 19:30 Glucose (Glutose) 22.5 gm Q15M PRN PO DECREASED GLUCOSE; Start 05/03/18 at 19:30 Dextrose (D50w Syringe) 25 ml Q15M PRN IV DECREASED GLUCOSE; Start 05/03/18 at 19:30 Dextrose (D50w Syringe) 50 ml Q15M PRN IV DECREASED GLUCOSE; Start 05/03/18 at 19:30 Glucagon (Glucagen) 1 mg Q15M PRN IM DECREASED GLUCOSE; Start 05/03/18 at 19:30 Glucose (Glutose) 15 gm Q15M PRN BUCCAL DECREASED GLUCOSE; Start 05/03/18 at 19:30 Albumin Human 50 ml @ 100 mls/hr WITH DIALYSIS PRN IV SBP less than 90 mm Hg Last administered on 05/08/18at 12:04; Admin Dose 100 MLS/HR; Start 05/04/18 at 09:00 Sodium Chloride (NS) -To prime the dialy... DIRECTED FOR HD PRN IV SBP less than 90 mm Hg ; Start 05/04/18 at 09:00 Insulin Aspart (Novolog Insulin Pen) NOVOLOG *MILD* ALGORI... AC BREAKFAST DINNER SC ; Start 05/05/18 at 07:25 Acetaminophen (Tylenol Liquid) 650 mg Q6H PRN PO MILD PAIN(1-3)OR ELEVATED TEMP; Start 05/06/18 at 04:30 Folic Acid (Folic Acid) 1 mg DAILY PO Last administered on 05/09/18at 08:21; Admin Dose 1 MG; Start 05/07/18 at 11:30 Morphine Sulfate (morphine) 6 mg Q4H PRN PO SEVERE PAIN LEVEL 7-10; Start 05/07/18 at 15:30 Heparin Sodium (Porcine) (Heparin (5000 Units/1ml)) 5,000 unit Q12 SC Last administered on 05/09/18at 08:25; Admin Dose 5,000 UNIT; Start 05/08/18 at 09:00 Assessment/Plan Chief Complaint/Hosp Course Pt with h/o ESRD on HD and extensive pleural mesothelioma. Pt apparently going to start on carbo/pemetrexed/bevacizumab per Dr. Levin. I would be somewhat hesitant giving this pt pemetrexed in light of his renal failure. I will discuss this administration of this drug with Dr. Levin who returns on Thursday. Poor overall prognosis. Continue supportive care. HD done yesterday. Not scheduled for today. Rich Cuevas MD Heme/Onc RICH CUEVAS May 09, 2018 08:41
--- NOTE | 2018-05-09 15:49 | CONS ---
Date/Time of Note Date/Time of Note DATE: 05/09/18 TIME: 15:49 Assessment/Plan Assessment/Plan Assessment/Plan 1. Acute metabolic encephalopathy 2. Chronic thalamic lacunar infarct 3. ESRD on HD TTS schedule 4. H/o mesothelioma Plan: s/p HD yesterday only 800 cc was removed - will keep pt on TTS schedule- next HD will be on Thursday US chest showed very small pleural effusion not doing well, family meeting tomorrow - if family agree, consider palliative care Consult will follow up Result Diagram: 05/09/18 0545 05/09/18 0545 Results 24hrs Laboratory Tests Test 05/08/18 17:06 05/08/18 21:46 05/09/18 04:00 05/09/18 05:45 Bedside Glucose 142 171 Blood Gas Specimen Blood arterial Source Arterial Blood 05/09/2018 5:02:09 Date Drawn AM Arterial Blood pH 7.274 *L (Temp corrected) Arterial Blood 61.1 H pCO2 (Temp correct) Arterial Blood pO2 88.8 (Temp corrected) Arterial Blood 27.7 H HCO3 Arterial Blood 0.2 Base Excess Arterial Blood 96.3 Oxygen Saturation Baldev Test ACCEPTAB Arterial Blood Gas Right Radial Puncture Site Arterial 1.0 Blood Carboxyhemog lobin Arterial Blood 0.3 Methemoglobin Blood Gas A-a O2 126.1 H Differential Oxyhemoglobin 95.0 Percent Blood Gas 37.0 Temperature Blood Gas 16.0 Respiration Rate Blood Gas Actual 22 Respiration Rate Blood Gas Modality MASK - BIPAP FiO2 40.0 Blood Gas Pressure 15 Support Blood Gas 20/5 IPAP/EPAP Ratio Blood Gas Critical E.CHU RN Value Read Back Blood Gas Notified KM Whom Blood Gas Notified 05/09/2018 5:19:05 Time AM White Blood Count 5.8 Red Blood Count 3.66 L Hemoglobin 9.3 L Hematocrit 31.6 L Mean Corpuscular 86.3 Volume Mean Corpuscular 25.4 L Hemoglobin Mean Corpuscular 29.4 L Hemoglobin Concent Red Cell 17.3 H Distribution Width Platelet Count 195 Mean Platelet 10.5 H Volume Immature 1.000 H Granulocytes % Neutrophils % 81.4 H Lymphocytes % 8.3 L Monocytes % 8.8 Eosinophils % 0.2 Basophils % 0.3 Nucleated Red 0.0 Blood Cells % Immature 0.060 H Granulocytes # Neutrophils # 4.7 Lymphocytes # 0.5 L Monocytes # 0.5 Eosinophils # 0.0 Basophils # 0.0 Nucleated Red 0.0 Blood Cells # Sodium Level 134 L Potassium Level 4.5 Chloride Level 98 Carbon Dioxide 29 Level Anion Gap 7 Blood Urea 28 H Nitrogen Creatinine 2.42 H Est Glomerular Filtrat Rate mL/min Glucose Level 138 Calcium Level 8.6 Test 05/09/18 07:29 Bedside Glucose 139 Consultation Date/Type/Reason Admit Date/Time May 03, 2018 at 18:02 Initial Consult Date 05/03/18 Type of Consult NEPHROLOGY Requesting Provider: KATHARINE PETERS Exam/Review of Systems Vital Signs Vitals Vital Signs Date Temp Pulse Resp B/P (MAP) Pulse Ox O2 O2 Flow FiO2 Time Delivery Rate 05/09/18 98.2 76 18 127/54 100 Nasal 15:43 (78) Cannula 05/09/18 4.0 12:26 05/09/18 30 03:15 Intake and Output 05/08/18 05/08/18 05/09/18 1515:00 23:00 07:00 IntakeIntake Total 720 ml OutputOutput Total 2200 ml BalanceBalance -2200 ml 720 ml Medications Medications Current Medications Dextrose/Sodium Chloride 1,000 ml @ 40 mls/hr Q24H IV Last administered on 05/08/18at 21:54; Admin Dose 40 MLS/HR; Start 05/03/18 at 19:07 IV Flush (NS 3 ml) 3 ml PER PROTOCOL IV ; Start 05/03/18 at 19:30 Ondansetron HCl (Zofran Inj) 4 mg Q6H PRN IV NAUSEA AND/OR VOMITING; Start 05/03/18 at 19:30 Diagnostic Test (Pha) (Accu-Chek) 1 ea 02 XX ; Start 05/04/18 at 02:00 Hydralazine HCl (Apresoline) 10 mg Q4H PRN IV SBP>170; Start 05/03/18 at 19:30 Miscellaneous Information 1 ea NOTE XX ; Start 05/03/18 at 19:30 Glucose (Glutose) 15 gm Q15M PRN PO DECREASED GLUCOSE; Start 05/03/18 at 19:30 Glucose (Glutose) 22.5 gm Q15M PRN PO DECREASED GLUCOSE; Start 05/03/18 at 19:30 Dextrose (D50w Syringe) 25 ml Q15M PRN IV DECREASED GLUCOSE; Start 05/03/18 at 19:30 Dextrose (D50w Syringe) 50 ml Q15M PRN IV DECREASED GLUCOSE; Start 05/03/18 at 19:30 Glucagon (Glucagen) 1 mg Q15M PRN IM DECREASED GLUCOSE; Start 05/03/18 at 19:30 Glucose (Glutose) 15 gm Q15M PRN BUCCAL DECREASED GLUCOSE; Start 05/03/18 at 19:30 Albumin Human 50 ml @ 100 mls/hr WITH DIALYSIS PRN IV SBP less than 90 mm Hg Last administered on 05/08/18at 12:04; Admin Dose 100 MLS/HR; Start 05/04/18 at 09:00 Sodium Chloride (NS) -To prime the dialy... DIRECTED FOR HD PRN IV SBP less than 90 mm Hg ; Start 05/04/18 at 09:00 Insulin Aspart (Novolog Insulin Pen) NOVOLOG *MILD* ALGORI... AC BREAKFAST DINNER SC ; Start 05/05/18 at 07:25 Acetaminophen (Tylenol Liquid) 650 mg Q6H PRN PO MILD PAIN(1-3)OR ELEVATED TEMP; Start 05/06/18 at 04:30 Folic Acid (Folic Acid) 1 mg DAILY PO Last administered on 05/09/18at 08:21; Admin Dose 1 MG; Start 05/07/18 at 11:30 Morphine Sulfate (morphine) 6 mg Q4H PRN PO SEVERE PAIN LEVEL 7-10; Start 05/07/18 at 15:30 Heparin Sodium (Porcine) (Heparin (5000 Units/1ml)) 5,000 unit Q12 SC Last administered on 05/09/18at 08:25; Admin Dose 5,000 UNIT; Start 05/08/18 at 09:00 RAYNE FITCH MD May 09, 2018 15:49
--- NOTE | 2018-05-09 17:45 | PN ---
Date/Time of Note Date/Time of Note DATE: 05/09/18 TIME: 17:42 Assessment/Plan VTE Prophylaxis Risk score (from Ns)>0 risk: 10 SCD applied (from Ns): Yes Pharmacological prophylaxis: NA/contraindicated Pharm contraindication: renal impairment Lines/Catheters [facility] Assessment/Plan Hospital Course 1. Acute metabolic encephalopathy secondary to underlying mesothelioma and hypercapnia CT head shows advanced atrophy with chronic left thalamic lacunar infarct Patient with ABG that showed hypercapnia and respiratory acidosis, patient started on BiPAP but did not tolerate Patient's son prefers the patient not be intubated Patient awaiting to receive chemotherapy but is gravely ill and unclear if he will tolerate No evidence of infection 2. Mesothelioma Oncology consultation appreciated, plan is to initiate chemotherapy during this hospitalization but still unclear if patient can tolerate 3. End-stage renal disease Nephrology for dialysis 4. Chronic left thalamic lacunar infarct No acute issues Prophylaxis: SCDs DC planning: Chemotherapy was planned to be given but unclear if patient can tolerate, patient with poor prognosis with high probability of passing away during this admission Result Diagram: 05/09/18 0545 05/09/18 0545 Results 24hrs Laboratory Tests Test 05/08/18 21:46 05/09/18 04:00 05/09/18 05:45 05/09/18 07:29 Bedside Glucose 171 139 Blood Gas Specimen Blood arterial Source Arterial Blood 05/09/2018 5:02:09 Date Drawn AM Arterial Blood pH 7.274 *L (Temp corrected) Arterial Blood 61.1 H pCO2 (Temp correct) Arterial Blood pO2 88.8 (Temp corrected) Arterial Blood 27.7 H HCO3 Arterial Blood 0.2 Base Excess Arterial Blood 96.3 Oxygen Saturation Baldev Test ACCEPTAB Arterial Blood Gas Right Radial Puncture Site Arterial 1.0 Blood Carboxyhemog lobin Arterial Blood 0.3 Methemoglobin Blood Gas A-a O2 126.1 H Differential Oxyhemoglobin 95.0 Percent Blood Gas 37.0 Temperature Blood Gas 16.0 Respiration Rate Blood Gas Actual 22 Respiration Rate Blood Gas Modality MASK - BIPAP FiO2 40.0 Blood Gas Pressure 15 Support Blood Gas 20/5 IPAP/EPAP Ratio Blood Gas Critical E.CHU RN Value Read Back Blood Gas Notified KM Whom Blood Gas Notified 05/09/2018 5:19:05 Time AM White Blood Count 5.8 Red Blood Count 3.66 L Hemoglobin 9.3 L Hematocrit 31.6 L Mean Corpuscular 86.3 Volume Mean Corpuscular 25.4 L Hemoglobin Mean Corpuscular 29.4 L Hemoglobin Concent Red Cell 17.3 H Distribution Width Platelet Count 195 Mean Platelet 10.5 H Volume Immature 1.000 H Granulocytes % Neutrophils % 81.4 H Lymphocytes % 8.3 L Monocytes % 8.8 Eosinophils % 0.2 Basophils % 0.3 Nucleated Red 0.0 Blood Cells % Immature 0.060 H Granulocytes # Neutrophils # 4.7 Lymphocytes # 0.5 L Monocytes # 0.5 Eosinophils # 0.0 Basophils # 0.0 Nucleated Red 0.0 Blood Cells # Sodium Level 134 L Potassium Level 4.5 Chloride Level 98 Carbon Dioxide 29 Level Anion Gap 7 Blood Urea 28 H Nitrogen Creatinine 2.42 H Est Glomerular Filtrat Rate mL/min Glucose Level 138 Calcium Level 8.6 Test 05/09/18 17:20 Bedside Glucose 136 Subjective 24 Hr Interval Summary Constitutional: disoriented Exam/Review of Systems Vital Signs Vitals Vital Signs Date Temp Pulse Resp B/P (MAP) Pulse Ox O2 O2 Flow FiO2 Time Delivery Rate 05/09/18 80 97 30 16:23 05/09/18 98.2 18 127/54 Nasal 15:43 (78) Cannula 05/09/18 4.0 12:26 Intake and Output 05/08/18 05/08/18 05/09/18 1515:00 23:00 07:00 IntakeIntake Total 720 ml OutputOutput Total 2200 ml BalanceBalance -2200 ml 720 ml Exam Constitutional: non-verbal Psych: confusion Respiratory: clear to auscultation Cardiovascular: regular rate and rhythm Gastrointestinal: soft; No distended Musculoskeletal: nl extremities to inspection Medications Medications Current Medications Dextrose/Sodium Chloride 1,000 ml @ 40 mls/hr Q24H IV Last administered on 05/08/18at 21:54; Admin Dose 40 MLS/HR; Start 05/03/18 at 19:07 IV Flush (NS 3 ml) 3 ml PER PROTOCOL IV ; Start 05/03/18 at 19:30 Ondansetron HCl (Zofran Inj) 4 mg Q6H PRN IV NAUSEA AND/OR VOMITING; Start 05/03/18 at 19:30 Diagnostic Test (Pha) (Accu-Chek) 1 ea 02 XX ; Start 05/04/18 at 02:00 Hydralazine HCl (Apresoline) 10 mg Q4H PRN IV SBP>170; Start 05/03/18 at 19:30 Miscellaneous Information 1 ea NOTE XX ; Start 05/03/18 at 19:30 Glucose (Glutose) 15 gm Q15M PRN PO DECREASED GLUCOSE; Start 05/03/18 at 19:30 Glucose (Glutose) 22.5 gm Q15M PRN PO DECREASED GLUCOSE; Start 05/03/18 at 19:30 Dextrose (D50w Syringe) 25 ml Q15M PRN IV DECREASED GLUCOSE; Start 05/03/18 at 19:30 Dextrose (D50w Syringe) 50 ml Q15M PRN IV DECREASED GLUCOSE; Start 05/03/18 at 19:30 Glucagon (Glucagen) 1 mg Q15M PRN IM DECREASED GLUCOSE; Start 05/03/18 at 19:30 Glucose (Glutose) 15 gm Q15M PRN BUCCAL DECREASED GLUCOSE; Start 05/03/18 at 19:30 Albumin Human 50 ml @ 100 mls/hr WITH DIALYSIS PRN IV SBP less than 90 mm Hg Last administered on 05/08/18at 12:04; Admin Dose 100 MLS/HR; Start 05/04/18 at 09:00 Sodium Chloride (NS) -To prime the dialy... DIRECTED FOR HD PRN IV SBP less than 90 mm Hg ; Start 05/04/18 at 09:00 Insulin Aspart (Novolog Insulin Pen) NOVOLOG *MILD* ALGORI... AC BREAKFAST DINNER SC ; Start 05/05/18 at 07:25 Acetaminophen (Tylenol Liquid) 650 mg Q6H PRN PO MILD PAIN(1-3)OR ELEVATED TEMP; Start 05/06/18 at 04:30 Folic Acid (Folic Acid) 1 mg DAILY PO Last administered on 05/09/18at 08:21; Admin Dose 1 MG; Start 05/07/18 at 11:30 Morphine Sulfate (morphine) 6 mg Q4H PRN PO SEVERE PAIN LEVEL 7-10; Start 05/07/18 at 15:30 Heparin Sodium (Porcine) (Heparin (5000 Units/1ml)) 5,000 unit Q12 SC Last administered on 05/09/18at 08:25; Admin Dose 5,000 UNIT; Start 05/08/18 at 09:00 KATHARINE PETERS May 09, 2018 17:45
[2018-05-09] MEDS: DEXTROSE 5%-0.45% NACL 1,000 ML IV SCH (20:24)
[2018-05-10] VITALS (17 sets, daily range): BP systolic 99–113; BP diastolic 51–59; PULSE 70–133; RESP 18
[2018-05-10] MEDS: ACCU-CHEK XX SCH (02:00)
[2018-05-10] MEDS: INSULIN ASPART [NOVOLOG] 3 ML PEN SC SCH ×3 (07:25→21:00)
[2018-05-10] MEDS: FOLIC ACID 1 MG TAB PO SCH (08:15)
[2018-05-10] MEDS: HEPARIN 5,000 UNIT/1 ML VIAL SC SCH (08:20)
[2018-05-10] MEDS ORDERED: FUROSEMIDE 20 MG INJ IV SCH (12:00)
--- NOTE | 2018-05-10 14:01 | PN ---
Date/Time of Note Date/Time of Note DATE: 05/10/18 TIME: 13:59 Assessment/Plan VTE Prophylaxis Risk score (from Nsg)>0 risk: 7 SCD applied (from Nsg): Yes Pharmacological prophylaxis: heparin Lines/Catheters IV Catheter Type (from Nrsg): Peripheral IV Assessment/Plan Hospital Course 72 yo male with ESRD with recently diagnosis with mesothelioma here with hypoxic/hypercapneic respiratory failure - Continue abx ESRD; - HD per renal Poor prognosis. Goals of care discussions with family Result Diagram: 05/09/18 0545 05/09/18 0545 Results 24hrs Laboratory Tests Test 05/09/18 17:20 05/09/18 20:24 05/10/18 08:14 Bedside Glucose 136 167 120 Subjective 24 Hr Interval Summary Free Text/Dictation A bit tachypneic HD pending Exam/Review of Systems Vital Signs Vitals Vital Signs Date Temp Pulse Resp B/P (MAP) Pulse Ox O2 O2 Flow FiO2 Time Delivery Rate 05/10/18 74 12:58 05/10/18 97.6 18 104/51 100 Nasal 11:40 (68) Cannula 05/10/18 4.0 08:30 05/10/18 40 05:22 Intake and Output 05/09/18 05/09/18 05/10/18 1414:59 22:59 06:59 IntakeIntake Total 480 ml 820 ml 530 ml BalanceBalance 480 ml 820 ml 530 ml Exam Slight tahcypnea + JVD Lungs clear Medications Medications Current Medications IV Flush (NS 3 ml) 3 ml PER PROTOCOL IV ; Start 05/03/18 at 19:30 Ondansetron HCl (Zofran Inj) 4 mg Q6H PRN IV NAUSEA AND/OR VOMITING; Start 05/03/18 at 19:30 Diagnostic Test (Pha) (Accu-Chek) 1 ea 02 XX ; Start 05/04/18 at 02:00 Hydralazine HCl (Apresoline) 10 mg Q4H PRN IV SBP>170; Start 05/03/18 at 19:30 Miscellaneous Information 1 ea NOTE XX ; Start 05/03/18 at 19:30 Glucose (Glutose) 15 gm Q15M PRN PO DECREASED GLUCOSE; Start 05/03/18 at 19:30 Glucose (Glutose) 22.5 gm Q15M PRN PO DECREASED GLUCOSE; Start 05/03/18 at 19:30 Dextrose (D50w Syringe) 25 ml Q15M PRN IV DECREASED GLUCOSE; Start 05/03/18 at 19:30 Dextrose (D50w Syringe) 50 ml Q15M PRN IV DECREASED GLUCOSE; Start 05/03/18 at 19:30 Glucagon (Glucagen) 1 mg Q15M PRN IM DECREASED GLUCOSE; Start 05/03/18 at 19:30 Glucose (Glutose) 15 gm Q15M PRN BUCCAL DECREASED GLUCOSE; Start 05/03/18 at 19:30 Albumin Human 50 ml @ 100 mls/hr WITH DIALYSIS PRN IV SBP less than 90 mm Hg Last administered on 05/08/18at 12:04; Admin Dose 100 MLS/HR; Start 05/04/18 at 09:00 Sodium Chloride (NS) -To prime the dialy... DIRECTED FOR HD PRN IV SBP less than 90 mm Hg ; Start 05/04/18 at 09:00 Insulin Aspart (Novolog Insulin Pen) NOVOLOG *MILD* ALGORI... AC BREAKFAST DINNER SC ; Start 05/05/18 at 07:25 Acetaminophen (Tylenol Liquid) 650 mg Q6H PRN PO MILD PAIN(1-3)OR ELEVATED TEMP; Start 05/06/18 at 04:30 Folic Acid (Folic Acid) 1 mg DAILY PO Last administered on 05/10/18at 08:15; Admin Dose 1 MG; Start 05/07/18 at 11:30 Heparin Sodium (Porcine) (Heparin (5000 Units/1ml)) 5,000 unit Q12 SC Last administered on 05/10/18at 08:20; Admin Dose 5,000 UNIT; Start 05/08/18 at 09:00 Furosemide (Lasix) 80 mg BID DIURETICS IV ; Start 05/10/18 at 18:00 BASIM PLASENCIA MD May 10, 2018 14:01
--- NOTE | 2018-05-10 14:32 | CONS ---
Date/Time of Note Date/Time of Note DATE: 05/10/18 TIME: 14:32 Assessment/Plan Assessment/Plan Assessment/Plan 1. Acute metabolic encephalopathy 2. Chronic thalamic lacunar infarct 3. ESRD on HD TTS schedule 4. H/o mesothelioma Plan: s/p HD on 05/08/17- only 800 cc was removed - will keep pt on TTS schedule- next HD will be on Thursday US chest showed very small pleural effusion will follow up Result Diagram: 05/09/18 0545 05/09/18 0545 Results 24hrs Laboratory Tests Test 05/09/18 17:20 05/09/18 20:24 05/10/18 08:14 Bedside Glucose 136 167 120 Consultation Date/Type/Reason Admit Date/Time May 03, 2018 at 18:02 Initial Consult Date 05/03/18 Type of Consult NEPHROLOGY Requesting Provider: KATHARINE PETERS 24 HR Interval Summary Free Text/Dictation plan for HD tomorrow, BP stable Exam/Review of Systems Vital Signs Vitals Vital Signs Date Temp Pulse Resp B/P (MAP) Pulse Ox O2 O2 Flow FiO2 Time Delivery Rate 05/10/18 74 12:58 05/10/18 97.6 18 104/51 100 Nasal 11:40 (68) Cannula 05/10/18 4.0 08:30 05/10/18 40 05:22 Intake and Output 05/09/18 05/09/18 05/10/18 1515:00 23:00 07:00 IntakeIntake Total 480 ml 820 ml 530 ml BalanceBalance 480 ml 820 ml 530 ml Exam Constitutional: alert Respiratory: clear to auscultation, normal air movement, diminished breath sounds Cardiovascular: regular rate and rhythm, nl pulses Gastrointestinal: soft, non-tender Musculoskeletal: nl extremities to inspection Neurological: alert awake, but sleepy Medications Medications Current Medications IV Flush (NS 3 ml) 3 ml PER PROTOCOL IV ; Start 05/03/18 at 19:30 Ondansetron HCl (Zofran Inj) 4 mg Q6H PRN IV NAUSEA AND/OR VOMITING; Start 05/03/18 at 19:30 Diagnostic Test (Pha) (Accu-Chek) 1 ea 02 XX ; Start 05/04/18 at 02:00 Hydralazine HCl (Apresoline) 10 mg Q4H PRN IV SBP>170; Start 05/03/18 at 19:30 Miscellaneous Information 1 ea NOTE XX ; Start 05/03/18 at 19:30 Glucose (Glutose) 15 gm Q15M PRN PO DECREASED GLUCOSE; Start 05/03/18 at 19:30 Glucose (Glutose) 22.5 gm Q15M PRN PO DECREASED GLUCOSE; Start 05/03/18 at 19:30 Dextrose (D50w Syringe) 25 ml Q15M PRN IV DECREASED GLUCOSE; Start 05/03/18 at 19:30 Dextrose (D50w Syringe) 50 ml Q15M PRN IV DECREASED GLUCOSE; Start 05/03/18 at 19:30 Glucagon (Glucagen) 1 mg Q15M PRN IM DECREASED GLUCOSE; Start 05/03/18 at 19:30 Glucose (Glutose) 15 gm Q15M PRN BUCCAL DECREASED GLUCOSE; Start 05/03/18 at 19:30 Albumin Human 50 ml @ 100 mls/hr WITH DIALYSIS PRN IV SBP less than 90 mm Hg Last administered on 05/08/18at 12:04; Admin Dose 100 MLS/HR; Start 05/04/18 at 09:00 Sodium Chloride (NS) -To prime the dialy... DIRECTED FOR HD PRN IV SBP less than 90 mm Hg ; Start 05/04/18 at 09:00 Insulin Aspart (Novolog Insulin Pen) NOVOLOG *MILD* ALGORI... AC BREAKFAST DINNER SC ; Start 05/05/18 at 07:25 Acetaminophen (Tylenol Liquid) 650 mg Q6H PRN PO MILD PAIN(1-3)OR ELEVATED TEMP; Start 05/06/18 at 04:30 Folic Acid (Folic Acid) 1 mg DAILY PO Last administered on 05/10/18at 08:15; Admin Dose 1 MG; Start 05/07/18 at 11:30 Heparin Sodium (Porcine) (Heparin (5000 Units/1ml)) 5,000 unit Q12 SC Last administered on 05/10/18at 08:20; Admin Dose 5,000 UNIT; Start 05/08/18 at 09:00 Furosemide (Lasix) 80 mg BID DIURETICS IV ; Start 05/10/18 at 18:00 RAYNE FITCH MD May 10, 2018 14:32
[2018-05-10] MEDS: FUROSEMIDE 40 MG INJ IV SCH ×2 (18:00→18:40)
--- NOTE | 2018-05-10 19:33 | EN ---
Date/Time of Note Date/Time of Note DATE: 05/10/18 TIME: 19:30 Event Note Medicine Medicine Event Note Oncology-- Pt has had significant deterioration. Rapid response has been called. Feel that pt is no longer a candidate for any chemotherapeutic intervention. Even if improved would be unable to receive the primary agent indicated for his malignancy, i.e. pemetrexate.. HIPOLITO NEWMAN MD May 10, 2018 19:33
--- NOTE | 2018-05-10 19:52 | EN ---
Date/Time of Note Date/Time of Note DATE: 05/10/18 TIME: 19:49 Event Note Medicine Medicine Event Note Patient with worsening mental status Hypoventilating. Marked respiratory acidosis Per Dr Levin, he is not a chemotherapy candidate and cannot be treated for advanced mesothelioma I discussed the above with his son Bk and at bedside. They are in agreement with comfort care measures. Clearly do not want intubation or CPR. Patient able to verbalize he is out of breath and wants breathing mask to his son. Will give NRB and PRN morphine and ativan. Loboley to pass away in coming day BASIM PLASENCIA MD May 10, 2018 19:52
[2018-05-10] MEDS ORDERED: morphine SULFATE/PF (2 MG/2 ML) SYG IV PRN ×2 (20:00→20:30)
[2018-05-10] MEDS ORDERED: ALBUMIN HUMAN 25% 50 ML ONE (20:21)
--- NOTE | 2018-05-10 20:28 | EN ---
Date/Time of Note Date/Time of Note DATE: 05/10/18 TIME: 20:25 Event Note Medicine Medicine Event Note Extensive discussion had with the family at the bedside. They do not want comfort measures only as they feel that is against their sikh beliefs. They still want to treat him however they do not want any living saving measures such as intubation or cpr. I have explained the gravity of the situation to them. They are agreeable to DNR/DNI. I will change the code status to DNR/DNI. Will resume previous medications, will give albumin 25% x1 at the current time given the patient's hypotension, will keep the patient n.p.o. at the current time given the fact that he does appear lethargic and he is currently on BiPAP. Patient did not appear to be on antibiotics prior to his orders being switched recently to comfort care. ANANT WISEMAN May 10, 2018 20:28
[2018-05-10] MEDS ORDERED: ONDANSETRON 4 MG INJ IV PRN (20:30)
[2018-05-10] MEDS ORDERED: ACETAMINOPHEN 325 MG TAB PO PRN (20:30)
[2018-05-10] MEDS ORDERED: LEVETIRACETAM 1000 MG (PMX) 100 ML IVPB ONE (20:30)
[2018-05-10] MEDS ORDERED: GLUCOSE GEL 15 GRAM TUBE PO PRN ×2 (20:30)
[2018-05-10] MEDS ORDERED: GLUCAGON 1 MG INJ IM PRN (20:30)
[2018-05-10] MEDS ORDERED: ALBUMIN HUMAN 25% 100 ML IV ONE (20:30)
[2018-05-10] MEDS ORDERED: GLUCOSE GEL 15 GRAM TUBE BUCCAL PRN (20:30)
[2018-05-10] MEDS ORDERED: DEXTROSE 50% 50 ML SYRINGE IV PRN ×2 (20:30)
[2018-05-10] MEDS ORDERED: INSULIN ASPART [NOVOLOG] 3 ML PEN SC SCH (21:00)
[2018-05-10] MEDS ORDERED: LEVETIRACETAM 500 MG TAB PO SCH (21:00)
[2018-05-10] MEDS: DEXTROSE 5%-0.45% NACL 1,000 ML IV SCH (21:15)
[2018-05-11] VITALS (25 sets, daily range): BP systolic 90–101; BP diastolic 50–55; PULSE 60–116; RESP 15–18
[2018-05-11] MEDS: INSULIN ASPART [NOVOLOG] 3 ML PEN SC SCH ×6 (01:00→21:00)
[2018-05-11] MEDS: ACETAMINOPHEN 650 MG SUPP PR PRN (01:16)
[2018-05-11] MEDS ORDERED: ACCU-CHEK XX SCH ×2 (02:00)
--- NOTE | 2018-05-11 07:39 | EN ---
Date/Time of Note Date/Time of Note DATE: 05/11/18 TIME: 07:34 Event Note Medicine Medicine Event Note Rapid response note Rapid response called at approximately 7:06 AM Patient was noted to be nonresponsive and cyanotic Patient was seen and examined at the bedside. Patient appeared to be agonal breathing and nonresponsive to sternal rub and verbal commands. He was being bagged by the respiratory therapist. Patient's oxygenation did subsequently improve to 100% on mechanical bagging. Patient's pupils were sluggish bilaterally to light. Vital signs show blood pressure 132/63 heart rate of 83 SPO2 100% initially on mechanical bagging and then placed on BiPAP. Patient was originally noted to be cyanotic however through the APPLIED PSYCHOLOGY PROFESSOR his skin color did improve. Patient however remained unresponsive. General: Patient unresponsive, agonal breathing initially cyanotic CVS: Regular rate rhythm Lungs: Coarse breath sounds bilaterally Neuro: Eyes open but unresponsive, agonal breathing Assessment and plan #1 altered level of consciousness: Patient was displaying agonal breathing. As per the nurse patient was to be on BiPAP overnight however the family was alternating between taking it on and off. Patient's color has improved however he is still unresponsive. His CODE STATUS is DNR/DNI. At the current time will obtain a stat ABG and adjust BiPAP settings if indicated. Patient is gravely ill and it was recommended to the family that the patient be put on comfort care last night however family at the current time still wants to pursue care will keeping him DNR/DNI. is present at the bedside. I did speak to the son Bk over the phone and updated him on the patient's condition. Greater than 30 minutes of critical care time was spent on the care and management this patient. ANANT WISEMAN May 11, 2018 07:39
[2018-05-11] MEDS ORDERED: SOD CHLORIDE 0.9% 250 ML IV ONE (08:30)
[2018-05-11] MEDS: LEVETIRACETAM 500 MG (PMX) 100 ML IVPB SCH ×2 (08:40→22:14)
--- NOTE | 2018-05-11 08:40 | CONS ---
Date/Time of Note Date/Time of Note DATE: 05/11/18 TIME: 08:38 Assessment/Plan Assessment/Plan Assessment/Plan Chart reviewed have spoken to family members this morning including 2 sons patient's and is a third son in route will be at the hospital at 2 PM. Unforeseen patient is acutely ill at this time requiring a BiPAP and is noncommunicative. All prior information is taken from patient's medical records and from speaking to family members. Patient also has a history of end-stage renal disease on hemodialysis history of mesothelioma was scheduled to have chemotherapy as an outpatient but became confused mental status changes and was brought to the emergency room and admitted. ABG was drawn yesterday which showed hypercapnia and respiratory acidosis. Patient has deteriorated and after discussion with Dr. Stapleton patients CODE STATUS was changed from full code to DO NOT RESUSCITATE. I am asked to assist with ongoing level of care. Since patient's third son is to arrive here at the hospital at 1400 I have only had a preliminary conversation with family members at the bedside and impressed upon them the seriousness of his current medical condition. Family reiterates they do not want him on a ventilator they do not want cardiopulmonary resuscitation. However at this time if patient continues to deteriorate comfort measures would be appropriate. Follow-up note will be done after speaking with all first-degree family members this afternoon. Result Diagram: 05/10/18192205/10/181922 Results 24hrs Laboratory Tests Test 05/10/18 17:26 05/10/18 19:01 05/10/18 19:23 05/10/18 19:30 Bedside Glucose 125 125 White Blood 5.1 Count Red Blood Count 3.90 L Hemoglobin 9.8 L Hematocrit 34.0 L Mean Corpuscular 87.2 Volume Mean Corpuscular 25.1 L Hemoglobin Mean Corpuscular 28.8 L Hemoglobin Dbeora nt Red Cell 17.2 H Distribution Width Platelet Count 208 Mean Platelet 10.1 Volume Immature 1.600 H Granulocytes % Neutrophils % 79.2 H Lymphocytes % 8.8 L Monocytes % 10.0 Eosinophils % 0.2 Basophils % 0.2 Nucleated Red 0.0 Blood Cells % Immature 0.080 H Granulocytes # Neutrophils # 4.0 Lymphocytes # 0.5 L Monocytes # 0.5 Eosinophils # 0.0 Basophils # 0.0 Nucleated Red 0.0 Blood Cells # Sodium Level 134 L Potassium Level 4.6 Chloride Level 96 L Carbon Dioxide 26 Level Anion Gap 12 Blood Urea 41 #H Nitrogen Creatinine 3.16 H Est Glomerular Filtrat Rate mL/min Glucose Level 136 Calcium Level 8.6 Blood Gas Blood arterial Specimen Source Arterial Blood 05/10/2018 7:21:54 Date Drawn PM Arterial Blood 7.170 *L pH (Temp corrected) Arterial Blood 78.0 H pCO2 (Temp correct) Arterial Blood 69.3 L pO2 (Temp corrected) Arterial Blood 27.8 H HCO3 Arterial Blood -2.0 Base Excess Arterial Blood 90.9 L Oxygen Saturatio n Baldev Test ACCEPTAB Arterial Blood Right Radial Gas Puncture Site Arterial 1.2 Blood Carboxyhem oglobin Arterial Blood 0.3 Methemoglobin Blood Gas A-a O2 53.0 H Differential Oxyhemoglobin 89.5 L Percent Blood Gas 37.0 Temperature Blood Gas NASAL CANNULA Modality FiO2 30.0 Blood Gas Ana KENNEDY RN Critical Value Read Back Blood Gas RTR Notified Whom Blood Gas 05/10/2018 7:38:04 Notified Time PM Test 05/10/18 20:48 05/11/18 03:00 05/11/18 06:23 05/11/18 07:32 Bedside Glucose 142 103 Blood Gas Blood arterial Blood arterial Specimen Source Arterial Blood 05/11/2018 2:50:00 05/11/2018 7:25:30 Date Drawn AM AM Arterial Blood 7.250 *L 7.192 *L pH (Temp corrected) Arterial Blood 63.5 H 72.0 H pCO2 (Temp correct) Arterial Blood 140.6 H 159.6 H pO2 (Temp corrected) Arterial Blood 27.2 H 27.0 H HCO3 Arterial Blood -0.7 -2.1 Base Excess Arterial Blood 98.5 98.8 Oxygen Saturatio n Baldev Test ACCEPTAB ACCEPTAB Arterial Blood Right Radial Right Radial Gas Puncture Site Arterial 1.2 1.0 Blood Carboxyhem oglobin Arterial Blood 0.3 0.3 Methemoglobin Blood Gas A-a O2 71.6 H 481.4 H Differential Oxyhemoglobin 97.0 97.5 Percent Blood Gas 37.0 37.0 Temperature Blood Gas 16.0 16.0 Respiration Rate Blood Gas Actual 22 16 Respiration Rate Blood Gas MASK - BIPAP MASK - BIPAP Modality FiO2 40.0 100.0 Blood Gas Tidal 420.0 Volume Blood Gas 20/5 20/5 IPAP/EPAP Ratio Blood Gas ERIKA BERRIOS RN. Critical Value Read Back Blood Gas MG TM Notified Whom Blood Gas 05/11/2018 3:04:00 05/11/2018 7:49:47 Notified Time AM AM Blood Gas 15 Pressure Support Consultation Date/Type/Reason Admit Date/Time May 03, 2018 at 18:02 Past Medical History Medical History: high cholesterol, hypertension, other (ESRD on HD ) Medications Current Medications Dextrose (D50w Syringe) 25 ml Q15M PRN IV DECREASED GLUCOSE; Start 05/03/18 at 19:30 Glucagon (Glucagen) 1 mg Q15M PRN IM DECREASED GLUCOSE; Start 05/03/18 at 19:30 Morphine Sulfate (morphine SULFATE (PF)) 1 mg Q2H PRN IV dypsnea; Start 05/10/18 at 20:00 Dextrose/Sodium Chloride 1,000 ml @ 40 mls/hr Q24H IV Last administered on 05/10/18at 21:15; Admin Dose 40 MLS/HR; Start 05/10/18 at 20:30 Ondansetron HCl (Zofran Inj) 4 mg Q4H PRN IV NAUSEA AND/OR VOMITING; Start 05/10/18 at 20:30 Morphine Sulfate (morphine SULFATE (PF)) 1 mg Q4H PRN IV SEVERE PAIN LEVEL 7- 10; Start 05/10/18 at 20:30 Acetaminophen (Tylenol Tab) 650 mg Q4H PRN PO MILD PAIN(1-3)OR ELEVATED TEMP; Start 05/10/18 at 20:30 Miscellaneous Information 1 ea NOTE XX ; Start 05/10/18 at 20:30 Glucose (Glutose) 15 gm Q15M PRN PO DECREASED GLUCOSE; Start 05/10/18 at 20:30 Glucose (Glutose) 22.5 gm Q15M PRN PO DECREASED GLUCOSE; Start 05/10/18 at 20:30 Dextrose (D50w Syringe) 25 ml Q15M PRN IV DECREASED GLUCOSE; Start 05/10/18 at 20:30 Dextrose (D50w Syringe) 50 ml Q15M PRN IV DECREASED GLUCOSE; Start 05/10/18 at 20:30 Glucagon (Glucagen) 1 mg Q15M PRN IM DECREASED GLUCOSE; Start 05/10/18 at 20:30 Glucose (Glutose) 15 gm Q15M PRN BUCCAL DECREASED GLUCOSE; Start 05/10/18 at 20:30 Insulin Aspart (Novolog Insulin Pen) NOVOLOG *MILD* ALGORI... Q4 SC ; Start 05/10/18 at 21:00 Acetaminophen (Tylenol Supp) 650 mg Q4H PRN [place] MILD PAIN(1-3) OR TEMP>38C Last administered on 05/11/18at 01:16; Admin Dose 650 MG; Start 05/10/18 at 20:30 Levetiracetam 100 ml @ 400 mls/hr BID IVPB ; Start 05/11/18 at 09:00 Allergies: Coded Allergies: No Known Allergy (Unverified , 03/22/18) Past Surgical History Past Surgical Hx: no surgical history, other Social History Alcohol Use: none Smoking Status: Never smoker Drug Use: none Exam/Review of Systems Vital Signs Vitals Vital Signs Date Temp Pulse Resp B/P (MAP) Pulse Ox O2 O2 Flow FiO2 Time Delivery Rate 05/11/18 98.0 75 17 90/55 (67) 100 07:50 05/11/18 100 07:15 05/11/18 Nasal 04:04 Cannula 05/11/18 5.0 03:00 Intake and Output 05/10/18 05/10/18 05/11/18 1515:00 23:00 07:00 IntakeIntake Total 20 ml BalanceBalance 20 ml Medications Medications Current Medications Dextrose (D50w Syringe) 25 ml Q15M PRN IV DECREASED GLUCOSE; Start 05/03/18 at 19:30 Glucagon (Glucagen) 1 mg Q15M PRN IM DECREASED GLUCOSE; Start 05/03/18 at 19:30 Morphine Sulfate (morphine SULFATE (PF)) 1 mg Q2H PRN IV dypsnea; Start 05/10/18 at 20:00 Dextrose/Sodium Chloride 1,000 ml @ 40 mls/hr Q24H IV Last administered on 05/10/18at 21:15; Admin Dose 40 MLS/HR; Start 05/10/18 at 20:30 Ondansetron HCl (Zofran Inj) 4 mg Q4H PRN IV NAUSEA AND/OR VOMITING; Start 05/10/18 at 20:30 Morphine Sulfate (morphine SULFATE (PF)) 1 mg Q4H PRN IV SEVERE PAIN LEVEL 7- 10; Start 05/10/18 at 20:30 Acetaminophen (Tylenol Tab) 650 mg Q4H PRN PO MILD PAIN(1-3)OR ELEVATED TEMP; Start 05/10/18 at 20:30 Miscellaneous Information 1 ea NOTE XX ; Start 05/10/18 at 20:30 Glucose (Glutose) 15 gm Q15M PRN PO DECREASED GLUCOSE; Start 05/10/18 at 20:30 Glucose (Glutose) 22.5 gm Q15M PRN PO DECREASED GLUCOSE; Start 05/10/18 at 20:30 Dextrose (D50w Syringe) 25 ml Q15M PRN IV DECREASED GLUCOSE; Start 05/10/18 at 20:30 Dextrose (D50w Syringe) 50 ml Q15M PRN IV DECREASED GLUCOSE; Start 05/10/18 at 20:30 Glucagon (Glucagen) 1 mg Q15M PRN IM DECREASED GLUCOSE; Start 05/10/18 at 20:30 Glucose (Glutose) 15 gm Q15M PRN BUCCAL DECREASED GLUCOSE; Start 05/10/18 at 20:30 Insulin Aspart (Novolog Insulin Pen) NOVOLOG *MILD* ALGORI... Q4 SC ; Start 05/10/18 at 21:00 Acetaminophen (Tylenol Supp) 650 mg Q4H PRN [place] MILD PAIN(1-3) OR TEMP>38C Last administered on 05/11/18at 01:16; Admin Dose 650 MG; Start 05/10/18 at 20:30 Levetiracetam 100 ml @ 400 mls/hr BID IVPB ; Start 05/11/18 at 09:00 LAUREN SCHMITZ May 11, 2018 08:40
[2018-05-11] MEDS ORDERED: LEVETIRACETAM 500 MG (PMX) 100 ML IVPB SCH (09:00)
[2018-05-11] MEDS ORDERED: LORAZEPAM 2 MG INJ IV PRN (09:00)
--- NOTE | 2018-05-11 10:20 | CONS ---
Date/Time of Note Date/Time of Note DATE: 05/11/18 TIME: 10:20 Assessment/Plan Assessment/Plan Assessment/Plan 1. Acute metabolic encephalopathy 2. Chronic thalamic lacunar infarct 3. ESRD on HD TTS schedule 4. H/o mesothelioma Plan: not doing well , [employer] called , HD cancelled for today - no further plan for HD, Consider Palliative care/Comfort care measures if family agree will follow up, no plan for HD tomorrow Result Diagram: 05/10/18192205/10/181922 Results 24hrs Laboratory Tests Test 05/10/18 17:26 05/10/18 19:01 05/10/18 19:23 05/10/18 19:30 Bedside Glucose 125 125 White Blood 5.1 Count Red Blood Count 3.90 L Hemoglobin 9.8 L Hematocrit 34.0 L Mean Corpuscular 87.2 Volume Mean Corpuscular 25.1 L Hemoglobin Mean Corpuscular 28.8 L Hemoglobin Debora nt Red Cell 17.2 H Distribution Width Platelet Count 208 Mean Platelet 10.1 Volume Immature 1.600 H Granulocytes % Neutrophils % 79.2 H Lymphocytes % 8.8 L Monocytes % 10.0 Eosinophils % 0.2 Basophils % 0.2 Nucleated Red 0.0 Blood Cells % Immature 0.080 H Granulocytes # Neutrophils # 4.0 Lymphocytes # 0.5 L Monocytes # 0.5 Eosinophils # 0.0 Basophils # 0.0 Nucleated Red 0.0 Blood Cells # Sodium Level 134 L Potassium Level 4.6 Chloride Level 96 L Carbon Dioxide 26 Level Anion Gap 12 Blood Urea 41 #H Nitrogen Creatinine 3.16 H Est Glomerular Filtrat Rate mL/min Glucose Level 136 Calcium Level 8.6 Blood Gas Blood arterial Specimen Source Arterial Blood 05/10/2018 7:21:54 Date Drawn PM Arterial Blood 7.170 *L pH (Temp corrected) Arterial Blood 78.0 H pCO2 (Temp correct) Arterial Blood 69.3 L pO2 (Temp corrected) Arterial Blood 27.8 H HCO3 Arterial Blood -2.0 Base Excess Arterial Blood 90.9 L Oxygen Saturatio n Baldev Test ACCEPTAB Arterial Blood Right Radial Gas Puncture Site Arterial 1.2 Blood Carboxyhem oglobin Arterial Blood 0.3 Methemoglobin Blood Gas A-a O2 53.0 H Differential Oxyhemoglobin 89.5 L Percent Blood Gas 37.0 Temperature Blood Gas NASAL CANNULA Modality FiO2 30.0 Blood Gas T. MAGPALI RN Critical Value Read Back Blood Gas RTR Notified Whom Blood Gas 05/10/2018 7:38:04 Notified Time PM Test 05/10/18 20:48 05/11/18 03:00 05/11/18 06:23 05/11/18 07:32 Bedside Glucose 142 103 Blood Gas Blood arterial Blood arterial Specimen Source Arterial Blood 05/11/2018 2:50:00 05/11/2018 7:25:30 Date Drawn AM AM Arterial Blood 7.250 *L 7.192 *L pH (Temp corrected) Arterial Blood 63.5 H 72.0 H pCO2 (Temp correct) Arterial Blood 140.6 H 159.6 H pO2 (Temp corrected) Arterial Blood 27.2 H 27.0 H HCO3 Arterial Blood -0.7 -2.1 Base Excess Arterial Blood 98.5 98.8 Oxygen Saturatio n Baldev Test ACCEPTAB ACCEPTAB Arterial Blood Right Radial Right Radial Gas Puncture Site Arterial 1.2 1.0 Blood Carboxyhem oglobin Arterial Blood 0.3 0.3 Methemoglobin Blood Gas A-a O2 71.6 H 481.4 H Differential Oxyhemoglobin 97.0 97.5 Percent Blood Gas 37.0 37.0 Temperature Blood Gas 16.0 16.0 Respiration Rate Blood Gas Actual 22 16 Respiration Rate Blood Gas MASK - BIPAP MASK - BIPAP Modality FiO2 40.0 100.0 Blood Gas Tidal 420.0 Volume Blood Gas 20/5 20/5 IPAP/EPAP Ratio Blood Gas ERIKA BERRIOS RN. Critical Value Read Back Blood Gas MG TM Notified Whom Blood Gas 05/11/2018 3:04:00 05/11/2018 7:49:47 Notified Time AM AM Blood Gas 15 Pressure Support Test 05/11/18 08:42 Bedside Glucose 118 Consultation Date/Type/Reason Admit Date/Time May 03, 2018 at 18:02 Initial Consult Date 05/03/18 Type of Consult NEPHROLOGY Requesting Provider: KATHARINE PETERS 24 HR Interval Summary Free Text/Dictation not doing well , [employer] called , HD cancelled for today Exam/Review of Systems Vital Signs Vitals Vital Signs Date Temp Pulse Resp B/P (MAP) Pulse Ox O2 O2 Flow FiO2 Time Delivery Rate 05/11/18 116 100 95 09:25 05/11/18 98.0 17 90/55 (67) 07:50 05/11/18 Nasal 04:04 Cannula 05/11/18 5.0 03:00 Intake and Output 05/10/18 05/10/18 05/11/18 1515:00 23:00 07:00 IntakeIntake Total 20 ml BalanceBalance 20 ml Exam Constitutional: unresponsive on BIPAP Respiratory: Bilateral Coarse BS+ Cardiovascular: S1 S2 tachycardia, no murmur Gastrointestinal: soft, non-tender Musculoskeletal: nl extremities to inspection Neurological: unresponsive Medications Medications Current Medications Dextrose (D50w Syringe) 25 ml Q15M PRN IV DECREASED GLUCOSE; Start 05/03/18 at 19:30 Glucagon (Glucagen) 1 mg Q15M PRN IM DECREASED GLUCOSE; Start 05/03/18 at 19:30 Dextrose/Sodium Chloride 1,000 ml @ 40 mls/hr Q24H IV Last administered on 05/10/18at 21:15; Admin Dose 40 MLS/HR; Start 05/10/18 at 20:30 Ondansetron HCl (Zofran Inj) 4 mg Q4H PRN IV NAUSEA AND/OR VOMITING; Start 05/10/18 at 20:30 Acetaminophen (Tylenol Tab) 650 mg Q4H PRN PO MILD PAIN(1-3)OR ELEVATED TEMP; Start 05/10/18 at 20:30 Miscellaneous Information 1 ea NOTE XX ; Start 05/10/18 at 20:30 Glucose (Glutose) 15 gm Q15M PRN PO DECREASED GLUCOSE; Start 05/10/18 at 20:30 Glucose (Glutose) 22.5 gm Q15M PRN PO DECREASED GLUCOSE; Start 05/10/18 at 20:30 Dextrose (D50w Syringe) 25 ml Q15M PRN IV DECREASED GLUCOSE; Start 05/10/18 at 20:30 Dextrose (D50w Syringe) 50 ml Q15M PRN IV DECREASED GLUCOSE; Start 05/10/18 at 20:30 Glucagon (Glucagen) 1 mg Q15M PRN IM DECREASED GLUCOSE; Start 05/10/18 at 20:30 Glucose (Glutose) 15 gm Q15M PRN BUCCAL DECREASED GLUCOSE; Start 05/10/18 at 20:30 Insulin Aspart (Novolog Insulin Pen) NOVOLOG *MILD* ALGORI... Q4 SC ; Start 05/10/18 at 21:00 Acetaminophen (Tylenol Supp) 650 mg Q4H PRN [place] MILD PAIN(1-3) OR TEMP>38C Last administered on 05/11/18at 01:16; Admin Dose 650 MG; Start 05/10/18 at 20:30 Levetiracetam 100 ml @ 400 mls/hr BID IVPB Last administered on 05/11/18at 08:40; Admin Dose 400 MLS/HR; Start 05/11/18 at 09:00 Morphine Sulfate (morphine SULFATE (PF)) 3 mg Q2 PRN IV dypsnea; Start 05/11/18 at 09:00 Lorazepam (Ativan) 1 mg Q2 PRN IV SEDATION; Start 05/11/18 at 09:00 RAYNE FITCH MD May 11, 2018 10:20
--- NOTE | 2018-05-11 14:33 | PN ---
Date/Time of Note Date/Time of Note DATE: 05/11/18 TIME: 14:30 Assessment/Plan VTE Prophylaxis Risk score (from Ns)>0 risk: 7 SCD applied (from Ns): Yes Pharmacological prophylaxis: heparin Lines/Catheters IV Catheter Type (from Nrsg): Peripheral IV Assessment/Plan Hospital Course 72 yo male with ESRD with recently diagnosis with mesothelioma here with hypoxic/hypercapneic respiratory failure, now DNR/DNI and actively dying - Continue BIPAP per patient preference - Comfort measures ESRD: - No more dialysis to be offered per Dr hartman DNR/DNI Morphine for dypsnea Result Diagram: 05/10/18192205/10/181922 Results 24hrs Laboratory Tests Test 05/10/18 17:26 05/10/18 19:01 05/10/18 19:23 05/10/18 19:30 Bedside Glucose 125 125 White Blood 5.1 Count Red Blood Count 3.90 L Hemoglobin 9.8 L Hematocrit 34.0 L Mean Corpuscular 87.2 Volume Mean Corpuscular 25.1 L Hemoglobin Mean Corpuscular 28.8 L Hemoglobin Debora nt Red Cell 17.2 H Distribution Width Platelet Count 208 Mean Platelet 10.1 Volume Immature 1.600 H Granulocytes % Neutrophils % 79.2 H Lymphocytes % 8.8 L Monocytes % 10.0 Eosinophils % 0.2 Basophils % 0.2 Nucleated Red 0.0 Blood Cells % Immature 0.080 H Granulocytes # Neutrophils # 4.0 Lymphocytes # 0.5 L Monocytes # 0.5 Eosinophils # 0.0 Basophils # 0.0 Nucleated Red 0.0 Blood Cells # Sodium Level 134 L Potassium Level 4.6 Chloride Level 96 L Carbon Dioxide 26 Level Anion Gap 12 Blood Urea 41 #H Nitrogen Creatinine 3.16 H Est Glomerular Filtrat Rate mL/min Glucose Level 136 Calcium Level 8.6 Blood Gas Blood arterial Specimen Source Arterial Blood 05/10/2018 7:21:54 Date Drawn PM Arterial Blood 7.170 *L pH (Temp corrected) Arterial Blood 78.0 H pCO2 (Temp correct) Arterial Blood 69.3 L pO2 (Temp corrected) Arterial Blood 27.8 H HCO3 Arterial Blood -2.0 Base Excess Arterial Blood 90.9 L Oxygen Saturatio n Baldev Test ACCEPTAB Arterial Blood Right Radial Gas Puncture Site Arterial 1.2 Blood Carboxyhem oglobin Arterial Blood 0.3 Methemoglobin Blood Gas A-a O2 53.0 H Differential Oxyhemoglobin 89.5 L Percent Blood Gas 37.0 Temperature Blood Gas NASAL CANNULA Modality FiO2 30.0 Blood Gas Ana KENNEDY RN Critical Value Read Back Blood Gas RTR Notified Whom Blood Gas 05/10/2018 7:38:04 Notified Time PM Test 05/10/18 20:48 05/11/18 03:00 05/11/18 06:23 05/11/18 07:32 Bedside Glucose 142 103 Blood Gas Blood arterial Blood arterial Specimen Source Arterial Blood 05/11/2018 2:50:00 05/11/2018 7:25:30 Date Drawn AM AM Arterial Blood 7.250 *L 7.192 *L pH (Temp corrected) Arterial Blood 63.5 H 72.0 H pCO2 (Temp correct) Arterial Blood 140.6 H 159.6 H pO2 (Temp corrected) Arterial Blood 27.2 H 27.0 H HCO3 Arterial Blood -0.7 -2.1 Base Excess Arterial Blood 98.5 98.8 Oxygen Saturatio n Baldev Test ACCEPTAB ACCEPTAB Arterial Blood Right Radial Right Radial Gas Puncture Site Arterial 1.2 1.0 Blood Carboxyhem oglobin Arterial Blood 0.3 0.3 Methemoglobin Blood Gas A-a O2 71.6 H 481.4 H Differential Oxyhemoglobin 97.0 97.5 Percent Blood Gas 37.0 37.0 Temperature Blood Gas 16.0 16.0 Respiration Rate Blood Gas Actual 22 16 Respiration Rate Blood Gas MASK - BIPAP MASK - BIPAP Modality FiO2 40.0 100.0 Blood Gas Tidal 420.0 Volume Blood Gas 20/5 20/5 IPAP/EPAP Ratio Blood Gas ERIKA BERRIOS RN. Critical Value Read Back Blood Gas MG TM Notified Whom Blood Gas 05/11/2018 3:04:00 05/11/2018 7:49:47 Notified Time AM AM Blood Gas 15 Pressure Support Test 05/11/18 08:42 05/11/18 12:42 Bedside Glucose 118 111 Subjective 24 Hr Interval Summary Free Text/Dictation Patient now DNR/DNI Seems to want to stay on BIPAP. Family extensively counseled Exam/Review of Systems Vital Signs Vitals Vital Signs Date Temp Pulse Resp B/P (MAP) Pulse Ox O2 O2 Flow FiO2 Time Delivery Rate 05/11/18 70 14:25 05/11/18 100 95 14:24 05/11/18 97.6 15 95/50 (65) 11:47 05/11/18 Nasal 04:04 Cannula 05/11/18 5.0 03:00 Intake and Output 05/10/18 05/10/18 05/11/18 1414:59 22:59 06:59 IntakeIntake Total 20 ml BalanceBalance 20 ml Medications Medications Current Medications Dextrose (D50w Syringe) 25 ml Q15M PRN IV DECREASED GLUCOSE; Start 05/03/18 at 19:30 Glucagon (Glucagen) 1 mg Q15M PRN IM DECREASED GLUCOSE; Start 05/03/18 at 19:30 Dextrose/Sodium Chloride 1,000 ml @ 40 mls/hr Q24H IV Last administered on 05/10/18at 21:15; Admin Dose 40 MLS/HR; Start 05/10/18 at 20:30 Ondansetron HCl (Zofran Inj) 4 mg Q4H PRN IV NAUSEA AND/OR VOMITING; Start 05/10/18 at 20:30 Acetaminophen (Tylenol Tab) 650 mg Q4H PRN PO MILD PAIN(1-3)OR ELEVATED TEMP; Start 05/10/18 at 20:30 Miscellaneous Information 1 ea NOTE XX ; Start 05/10/18 at 20:30 Glucose (Glutose) 15 gm Q15M PRN PO DECREASED GLUCOSE; Start 05/10/18 at 20:30 Glucose (Glutose) 22.5 gm Q15M PRN PO DECREASED GLUCOSE; Start 05/10/18 at 20:30 Dextrose (D50w Syringe) 25 ml Q15M PRN IV DECREASED GLUCOSE; Start 05/10/18 at 20:30 Dextrose (D50w Syringe) 50 ml Q15M PRN IV DECREASED GLUCOSE; Start 05/10/18 at 20:30 Glucagon (Glucagen) 1 mg Q15M PRN IM DECREASED GLUCOSE; Start 05/10/18 at 20:30 Glucose (Glutose) 15 gm Q15M PRN BUCCAL DECREASED GLUCOSE; Start 05/10/18 at 20:30 Insulin Aspart (Novolog Insulin Pen) NOVOLOG *MILD* ALGORI... Q4 SC ; Start 05/10/18 at 21:00 Acetaminophen (Tylenol Supp) 650 mg Q4H PRN [place] MILD PAIN(1-3) OR TEMP>38C Last administered on 05/11/18at 01:16; Admin Dose 650 MG; Start 05/10/18 at 20:30 Levetiracetam 100 ml @ 400 mls/hr BID IVPB Last administered on 05/11/18at 08:40; Admin Dose 400 MLS/HR; Start 05/11/18 at 09:00 Morphine Sulfate (morphine SULFATE (PF)) 3 mg Q2 PRN IV dypsnea; Start 05/11/18 at 09:00 Lorazepam (Ativan) 1 mg Q2 PRN IV SEDATION; Start 05/11/18 at 09:00 BASIM PLASENCIA MD May 11, 2018 14:33
[2018-05-11] MEDS: DEXTROSE 5%-0.45% NACL 1,000 ML IV SCH (20:30)
[2018-05-12] VITALS (23 sets, daily range): BP systolic 101–120; BP diastolic 52–56; PULSE 27–96; RESP 16–24
[2018-05-12] MEDS: INSULIN ASPART [NOVOLOG] 3 ML PEN SC SCH ×6 (01:00→20:21)
[2018-05-12] MEDS: morphine SULFATE/PF (2 MG/2 ML) SYG IV PRN ×2 (01:29→10:31)
[2018-05-12] MEDS: LEVETIRACETAM 500 MG (PMX) 100 ML IVPB SCH ×2 (09:10→23:25)
--- NOTE | 2018-05-12 09:29 | CONS ---
Date/Time of Note Date/Time of Note DATE: 05/12/18 TIME: 09:29 Assessment/Plan Assessment/Plan Result Diagram: 05/10/18192205/10/181922 Results 24hrs Laboratory Tests Test 05/11/18 12:42 05/11/18 17:02 05/11/18 20:56 05/12/18 06:33 Bedside Glucose 111 95 83 81 Test 05/12/18 09:14 Bedside Glucose 81 Consultation Date/Type/Reason Admit Date/Time May 03, 2018 at 18:02 Hx of Present Illness Second son has arrived today family conference scheduled at noon. Past Medical History Medical History: high cholesterol, hypertension, other (ESRD on HD ) Medications Current Medications Dextrose (D50w Syringe) 25 ml Q15M PRN IV DECREASED GLUCOSE; Start 05/03/18 at 19:30 Glucagon (Glucagen) 1 mg Q15M PRN IM DECREASED GLUCOSE; Start 05/03/18 at 1 9:30 Dextrose/Sodium Chloride 1,000 ml @ 40 mls/hr Q24H IV Last administered on 05/11/18at 20:30; Admin Dose 40 MLS/HR; Start 05/10/18 at 20:30 Ondansetron HCl (Zofran Inj) 4 mg Q4H PRN IV NAUSEA AND/OR VOMITING; Start 05/10/18 at 20:30 Acetaminophen (Tylenol Tab) 650 mg Q4H PRN PO MILD PAIN(1-3)OR ELEVATED TEMP; Start 05/10/18 at 20:30 Miscellaneous Information 1 ea NOTE XX ; Start 05/10/18 at 20:30 Glucose (Glutose) 15 gm Q15M PRN PO DECREASED GLUCOSE; Start 05/10/18 at 20:30 Glucose (Glutose) 22.5 gm Q15M PRN PO DECREASED GLUCOSE; Start 05/10/18 at 20:30 Dextrose (D50w Syringe) 25 ml Q15M PRN IV DECREASED GLUCOSE; Start 05/10/18 at 20:30 Dextrose (D50w Syringe) 50 ml Q15M PRN IV DECREASED GLUCOSE; Start 05/10/18 at 20:30 Glucagon (Glucagen) 1 mg Q15M PRN IM DECREASED GLUCOSE; Start 05/10/18 at 20:30 Glucose (Glutose) 15 gm Q15M PRN BUCCAL DECREASED GLUCOSE; Start 05/10/18 at 20:30 Insulin Aspart (Novolog Insulin Pen) NOVOLOG *MILD* ALGORI... Q4 SC ; Start 05/10/18 at 21:00 Acetaminophen (Tylenol Supp) 650 mg Q4H PRN [place] MILD PAIN(1-3) OR TEMP>38C Last administered on 05/11/18at 01:16; Admin Dose 650 MG; Start 05/10/18 at 20:30 Levetiracetam 100 ml @ 400 mls/hr BID IVPB Last administered on 05/11/18at 22:14; Admin Dose 400 MLS/HR; Start 05/11/18 at 09:00 Morphine Sulfate (morphine SULFATE (PF)) 3 mg Q2 PRN IV dypsnea Last administered on 05/12/18at 01:29; Admin Dose 3 MG; Start 05/11/18 at 09:00 Lorazepam (Ativan) 1 mg Q2 PRN IV SEDATION; Start 05/11/18 at 09:00 Allergies: Coded Allergies: No Known Allergy (Unverified , 03/22/18) Past Surgical History Past Surgical Hx: no surgical history, other Social History Alcohol Use: none Smoking Status: Never smoker Drug Use: none Exam/Review of Systems Vital Signs Vitals Vital Signs Date Temp Pulse Resp B/P (MAP) Pulse Ox O2 O2 Flow FiO2 Time Delivery Rate 05/12/18 83 08:46 05/12/18 99 50 08:45 05/12/18 5.0 08:31 05/12/18 98.0 16 105/55 07:28 (72) 05/11/18 Nasal 04:04 Cannula Intake and Output 05/11/18 05/11/18 05/12/18 1515:00 23:00 07:00 IntakeIntake Total 580 ml BalanceBalance 580 ml Medications Medications Current Medications Dextrose (D50w Syringe) 25 ml Q15M PRN IV DECREASED GLUCOSE; Start 05/03/18 at 19:30 Glucagon (Glucagen) 1 mg Q15M PRN IM DECREASED GLUCOSE; Start 05/03/18 at 19:30 Dextrose/Sodium Chloride 1,000 ml @ 40 mls/hr Q24H IV Last administered on 05/11/18at 20:30; Admin Dose 40 MLS/HR; Start 05/10/18 at 20:30 Ondansetron HCl (Zofran Inj) 4 mg Q4H PRN IV NAUSEA AND/OR VOMITING; Start 05/10/18 at 20:30 Acetaminophen (Tylenol Tab) 650 mg Q4H PRN PO MILD PAIN(1-3)OR ELEVATED TEMP; Start 05/10/18 at 20:30 Miscellaneous Information 1 ea NOTE XX ; Start 05/10/18 at 20:30 Glucose (Glutose) 15 gm Q15M PRN PO DECREASED GLUCOSE; Start 05/10/18 at 20:30 Glucose (Glutose) 22.5 gm Q15M PRN PO DECREASED GLUCOSE; Start 05/10/18 at 20:30 Dextrose (D50w Syringe) 25 ml Q15M PRN IV DECREASED GLUCOSE; Start 05/10/18 at 20:30 Dextrose (D50w Syringe) 50 ml Q15M PRN IV DECREASED GLUCOSE; Start 05/10/18 at 20:30 Glucagon (Glucagen) 1 mg Q15M PRN IM DECREASED GLUCOSE; Start 05/10/18 at 20:30 Glucose (Glutose) 15 gm Q15M PRN BUCCAL DECREASED GLUCOSE; Start 05/10/18 at 20:30 Insulin Aspart (Novolog Insulin Pen) NOVOLOG *MILD* ALGORI... Q4 SC ; Start 05/10/18 at 21:00 Acetaminophen (Tylenol Supp) 650 mg Q4H PRN [place] MILD PAIN(1-3) OR TEMP>38C Last administered on 05/11/18at 01:16; Admin Dose 650 MG; Start 05/10/18 at 20:30 Levetiracetam 100 ml @ 400 mls/hr BID IVPB Last administered on 05/11/18at 22:14; Admin Dose 400 MLS/HR; Start 05/11/18 at 09:00 Morphine Sulfate (morphine SULFATE (PF)) 3 mg Q2 PRN IV dypsnea Last administered on 05/12/18at 01:29; Admin Dose 3 MG; Start 05/11/18 at 09:00 Lorazepam (Ativan) 1 mg Q2 PRN IV SEDATION; Start 05/11/18 at 09:00 LAUREN SCHMITZ May 12, 2018 09:29
[2018-05-12] MEDS: ACETAMINOPHEN 650 MG SUPP PR PRN ×2 (16:14→23:25)
--- NOTE | 2018-05-12 17:02 | PN ---
Date/Time of Note Date/Time of Note DATE: 05/12/18 TIME: 17:00 Assessment/Plan VTE Prophylaxis Risk score (from Nsg)>0 risk: 7 SCD applied (from Nsg): Yes Pharmacological prophylaxis: heparin Lines/Catheters IV Catheter Type (from Nrsg): Peripheral IV Assessment/Plan Hospital Course 72 yo male with ESRD with recently diagnosis with mesothelioma here with hypoxic/hypercapneic respiratory failure, now DNR/DNI and actively dying though patient's family refusing comfort measures. Prefer to continue aggressive treatment - Continue BIPAP for hypercapneic respiratory faiulre ESRD: - I have notifed Dr Huerta of familys wish to continue HD treatment Mesothelioma: - No care to be offered per Dr Levin DNR/DNI Result Diagram: 05/10/18192205/10/181922 Results 24hrs Laboratory Tests Test 05/11/18 17:02 05/11/18 20:56 05/12/18 06:33 05/12/18 09:14 Bedside Glucose 95 83 81 81 Test 05/12/18 14:21 Bedside Glucose 77 Subjective 24 Hr Interval Summary Free Text/Dictation Family now wanting aggressive treatment. Want dialysis back Exam/Review of Systems Vital Signs Vitals Vital Signs Date Temp Pulse Resp B/P (MAP) Pulse Ox O2 O2 Flow FiO2 Time Delivery Rate 05/12/18 86 16:35 05/12/18 100 50 15:58 05/12/18 97.9 17 120/55 15:43 (76) 05/12/18 5.0 08:31 05/11/18 Nasal 04:04 Cannula Intake and Output 05/11/18 05/11/18 05/12/18 1515:00 23:00 07:00 IntakeIntake Total 580 ml BalanceBalance 580 ml Exam Encephelopathic On BIPAP + JVD Medications Medications Current Medications Dextrose (D50w Syringe) 25 ml Q15M PRN IV DECREASED GLUCOSE; Start 05/03/18 at 19:30 Glucagon (Glucagen) 1 mg Q15M PRN IM DECREASED GLUCOSE; Start 05/03/18 at 19:30 Dextrose/Sodium Chloride 1,000 ml @ 40 mls/hr Q24H IV Last administered on 05/11/18at 20:30; Admin Dose 40 MLS/HR; Start 05/10/18 at 20:30 Ondansetron HCl (Zofran Inj) 4 mg Q4H PRN IV NAUSEA AND/OR VOMITING; Start 05/10/18 at 20:30 Acetaminophen (Tylenol Tab) 650 mg Q4H PRN PO MILD PAIN(1-3)OR ELEVATED TEMP; Start 05/10/18 at 20:30 Miscellaneous Information 1 ea NOTE XX ; Start 05/10/18 at 20:30 Glucose (Glutose) 15 gm Q15M PRN PO DECREASED GLUCOSE; Start 05/10/18 at 20:30 Glucose (Glutose) 22.5 gm Q15M PRN PO DECREASED GLUCOSE; Start 05/10/18 at 20:30 Dextrose (D50w Syringe) 25 ml Q15M PRN IV DECREASED GLUCOSE; Start 05/10/18 at 20:30 Dextrose (D50w Syringe) 50 ml Q15M PRN IV DECREASED GLUCOSE; Start 05/10/18 at 20:30 Glucagon (Glucagen) 1 mg Q15M PRN IM DECREASED GLUCOSE; Start 05/10/18 at 20:30 Glucose (Glutose) 15 gm Q15M PRN BUCCAL DECREASED GLUCOSE; Start 05/10/18 at 20:30 Insulin Aspart (Novolog Insulin Pen) NOVOLOG *MILD* ALGORI... Q4 SC ; Start 05/10/18 at 21:00 Acetaminophen (Tylenol Supp) 650 mg Q4H PRN [place] MILD PAIN(1-3) OR TEMP>38C Last administered on 05/12/18at 16:14; Admin Dose 650 MG; Start 05/10/18 at 20:30 Levetiracetam 100 ml @ 400 mls/hr BID IVPB Last administered on 05/12/18at 09:10; Admin Dose 400 MLS/HR; Start 05/11/18 at 09:00 Morphine Sulfate (morphine SULFATE (PF)) 3 mg Q2 PRN IV dypsnea Last admini stered on 05/12/18at 10:31; Admin Dose 3 MG; Start 05/11/18 at 09:00 Lorazepam (Ativan) 1 mg Q2 PRN IV SEDATION; Start 05/11/18 at 09:00 BASIM PLASENCIA MD May 12, 2018 17:02
[2018-05-12] MEDS ORDERED: VANCOMYCIN IV PER PHARMACY XX SCH (17:30)
[2018-05-12] MEDS ORDERED: VANCOMYCIN 1.5 GM in SOD CHLORIDE 0.9% 250 ML IVPB ONE (18:30)
[2018-05-12] MEDS: CEFEPIME 1GM/50 ML (PMX) 50 ML IVPB SCH (19:13)
[2018-05-12] MEDS: DEXTROSE 5%-0.45% NACL 1,000 ML IV SCH (20:25)
[2018-05-12] MEDS ORDERED: VITAMIN A & D 5 GM OINT PACKET TOP ONE (20:27)
[2018-05-12] MEDS ORDERED: CEFEPIME 1GM/50 ML (PMX) 50 ML IVPB SCH (21:00)
--- NOTE | 2018-05-12 22:21 | CONS ---
Date/Time of Note Date/Time of Note DATE: 05/12/18 TIME: 22:19 Assessment/Plan Assessment/Plan Assessment/Plan 1. Acute metabolic encephalopathy 2. Chronic thalamic lacunar infarct 3. ESRD on HD TTS schedule 4. H/o mesothelioma Plan: pt is lethargic on BIPAP- iV abx as per PMD pt is not tolerating HD lately due to labile BP will plan for HD tomorrow if BP stable will follow up,s/p palliative care consult Result Diagram: 05/10/18192205/10/181922 Results 24hrs Laboratory Tests Test 05/12/18 06:33 05/12/18 09:14 05/12/18 14:21 05/12/18 17:49 Bedside Glucose 81 81 77 76 Test 05/12/18 20:20 Bedside Glucose 79 Consultation Date/Type/Reason Admit Date/Time May 03, 2018 at 18:02 Initial Consult Date 05/03/18 Type of Consult NEPHROLOGY Requesting Provider: KATHARINE PETERS 24 HR Interval Summary Free Text/Dictation pt remained lethargic, On BIPAP Exam/Review of Systems Vital Signs Vitals Vital Signs Date Temp Pulse Resp B/P (MAP) Pulse Ox O2 O2 Flow FiO2 Time Delivery Rate 05/12/18 77 100 50 21:06 05/12/18 98.1 20 109/52 BIPAP 20:00 (71) 05/12/18 5.0 08:31 Intake and Output 05/11/18 05/11/18 05/12/18 1515:00 23:00 07:00 IntakeIntake Total 580 ml BalanceBalance 580 ml Exam Constitutional: moderate distress on BIPAP Respiratory: Bilateral Coarse BS+, diffuse wheezing Cardiovascular: regular rate and rhythm, nl pulses Gastrointestinal: soft, non-tender Musculoskeletal: nl extremities to inspection Neurological: lethargic on BIPAP Medications Medications Current Medications Dextrose (D50w Syringe) 25 ml Q15M PRN IV DECREASED GLUCOSE; Start 05/03/18 at 19:30 Glucagon (Glucagen) 1 mg Q15M PRN IM DECREASED GLUCOSE; Start 05/03/18 at 19:30 Ondansetron HCl (Zofran Inj) 4 mg Q4H PRN IV NAUSEA AND/OR VOMITING; Start 05/10/18 at 20:30 Acetaminophen (Tylenol Tab) 650 mg Q4H PRN PO MILD PAIN(1-3)OR ELEVATED TEMP; Start 05/10/18 at 20:30 Miscellaneous Information 1 ea NOTE XX ; Start 05/10/18 at 20:30 Glucose (Glutose) 15 gm Q15M PRN PO DECREASED GLUCOSE; Start 05/10/18 at 20:30 Glucose (Glutose) 22.5 gm Q15M PRN PO DECREASED GLUCOSE; Start 05/10/18 at 20:30 Dextrose (D50w Syringe) 25 ml Q15M PRN IV DECREASED GLUCOSE; Start 05/10/18 at 20:30 Dextrose (D50w Syringe) 50 ml Q15M PRN IV DECREASED GLUCOSE; Start 05/10/18 at 20:30 Glucagon (Glucagen) 1 mg Q15M PRN IM DECREASED GLUCOSE; Start 05/10/18 at 20:30 Glucose (Glutose) 15 gm Q15M PRN BUCCAL DECREASED GLUCOSE; Start 05/10/18 at 20: 30 Insulin Aspart (Novolog Insulin Pen) NOVOLOG *MILD* ALGORI... Q4 SC ; Start 05/10/18 at 21:00 Acetaminophen (Tylenol Supp) 650 mg Q4H PRN [place] MILD PAIN(1-3) OR TEMP>38C Last administered on 05/12/18at 16:14; Admin Dose 650 MG; Start 05/10/18 at 20:30 Levetiracetam 100 ml @ 400 mls/hr BID IVPB Last administered on 05/12/18at 09:10; Admin Dose 400 MLS/HR; Start 05/11/18 at 09:00 Morphine Sulfate (morphine SULFATE (PF)) 3 mg Q2 PRN IV dypsnea Last administered on 05/12/18at 10:31; Admin Dose 3 MG; Start 05/11/18 at 09:00 Lorazepam (Ativan) 1 mg Q2 PRN IV SEDATION; Start 05/11/18 at 09:00 Vancomycin HCl (Vanco Iv Per Pharmacy) VANCOMYCIN PER PHARMACY PER PROTOCOL XX ; Start 05/12/18 at 17:30 Cefepime HCl 50 ml @ 100 mls/hr Q24H IVPB Last administered on 05/12/18at 19:13; Admin Dose 100 MLS/HR; Start 05/12/18 at 17:30 Dextrose/Sodium Chloride 1,000 ml @ 40 mls/hr Q24H IV Last administered on 05/12/18at 20:25; Admin Dose 40 MLS/HR; Start 05/12/18 at 20:00 RAYNE FITCH MD May 12, 2018 22:21
[2018-05-13] VITALS (32 sets, daily range): BP systolic 84–116; BP diastolic 51–58; PULSE 76–145; RESP 16–24
[2018-05-13] MEDS: INSULIN ASPART [NOVOLOG] 3 ML PEN SC SCH ×6 (01:00→20:51)
[2018-05-13] MEDS: LEVETIRACETAM 500 MG (PMX) 100 ML IVPB SCH ×2 (08:10→20:38)
--- NOTE | 2018-05-13 08:33 | CONS ---
Date/Time of Note Date/Time of Note DATE: 05/13/18 TIME: 08:33 Assessment/Plan Assessment/Plan Assessment/Plan 1. Acute metabolic encephalopathy 2. Chronic thalamic lacunar infarct 3. ESRD on HD TTS schedule 4. H/o mesothelioma Plan: pt is lethargic on BIPAP- iV abx as per PMD during HD pt becomes hypotensive and went into atrial fibrillatoi, HD has to stop today after 2 hr no plan for HD tomorrow will follow up Explained to pt son about pt not tolerating HD well, consider Hospice care, He said he will think about it Result Diagram: 05/10/18192205/10/181922 Results 24hrs Laboratory Tests Test 05/12/18 09:14 05/12/18 14:21 05/12/18 17:49 05/12/18 20:20 Bedside Glucose 81 77 76 79 Test 05/13/18 01:25 05/13/18 05:09 05/13/18 08:06 Bedside Glucose 74 78 70 Consultation Date/Type/Reason Admit Date/Time May 03, 2018 at 18:02 Initial Consult Date 05/03/18 Type of Consult NEPHROLOGY Requesting Provider: KATHARINE PETERS 24 HR Interval Summary Free Text/Dictation during HD pt becomes hypotensive and went into atrial fibrillatoi, HD has to stop today after 2 hr Exam/Review of Systems Vital Signs Vitals Vital Signs Date Temp Pulse Resp B/P (MAP) Pulse Ox O2 O2 Flow FiO2 Time Delivery Rate 05/13/18 98.1 79 24 113/53 97 Mask 07:50 (73) 05/13/18 45 05:10 05/12/18 5.0 08:31 Intake and Output 05/12/18 05/12/18 05/13/18 1414:59 22:59 06:59 IntakeIntake Total 440 ml 50 ml 590 ml OutputOutput Total 0 ml BalanceBalance 440 ml 50 ml 590 ml Exam Constitutional: moderate distress on BIPAP Respiratory: Bilateral Coarse BS+, diffuse wheezing Cardiovascular: regular rate and rhythm, nl pulses Gastrointestinal: soft, non-tender Musculoskeletal: nl extremities to inspection Neurological: lethargic on BIPAP Medications Medications Current Medications Dextrose (D50w Syringe) 25 ml Q15M PRN IV DECREASED GLUCOSE; Start 05/03/18 at 19:30 Glucagon (Glucagen) 1 mg Q15M PRN IM DECREASED GLUCOSE; Start 05/03/18 at 19:30 Ondansetron HCl (Zofran Inj) 4 mg Q4H PRN IV NAUSEA AND/OR VOMITING; Start 05/10/18 at 20:30 Acetaminophen (Tylenol Tab) 650 mg Q4H PRN PO MILD PAIN(1-3)OR ELEVATED TEMP; Start 05/10/18 at 20:30 Miscellaneous Information 1 ea NOTE XX ; Start 05/10/18 at 20:30 Glucose (Glutose) 15 gm Q15M PRN PO DECREASED GLUCOSE; Start 05/10/18 at 20:30 Glucose (Glutose) 22.5 gm Q15M PRN PO DECREASED GLUCOSE; Start 05/10/18 at 20:30 Dextrose (D50w Syringe) 25 ml Q15M PRN IV DECREASED GLUCOSE; Start 05/10/18 at 20:30 Dextrose (D50w Syringe) 50 ml Q15M PRN IV DECREASED GLUCOSE; Start 05/10/18 at 20:30 Glucagon (Glucagen) 1 mg Q15M PRN IM DECREASED GLUCOSE; Start 05/10/18 at 20:30 Glucose (Glutose) 15 gm Q15M PRN BUCCAL DECREASED GLUCOSE; Start 05/10/18 at 20:30 Insulin Aspart (Novolog Insulin Pen) NOVOLOG *MILD* ALGORI... Q4 SC ; Start 05/10/18 at 21:00 Acetaminophen (Tylenol Supp) 650 mg Q4H PRN [place] MILD PAIN(1-3) OR TEMP>38C Last administered on 05/12/18at 23:25; Admin Dose 650 MG; Start 05/10/18 at 20:30 Levetiracetam 100 ml @ 400 mls/hr BID IVPB Last administered on 05/13/18at 08:10; Admin Dose 400 MLS/HR; Start 05/11/18 at 09:00 Morphine Sulfate (morphine SULFATE (PF)) 3 mg Q2 PRN IV dypsnea Last administered on 05/12/18at 10:31; Admin Dose 3 MG; Start 05/11/18 at 09:00 Lorazepam (Ativan) 1 mg Q2 PRN IV SEDATION; Start 05/11/18 at 09:00 Vancomycin HCl (Vanco Iv Per Pharmacy) VANCOMYCIN PER PHARMACY PER PROTOCOL XX ; Start 05/12/18 at 17:30 Cefepime HCl 50 ml @ 100 mls/hr Q24H IVPB Last administered on 05/12/18at 19:13; Admin Dose 100 MLS/HR; Start 05/12/18 at 17:30 Dextrose/Sodium Chloride 1,000 ml @ 40 mls/hr Q24H IV Last administered on 05/12/18at 20:25; Admin Dose 40 MLS/HR; Start 05/12/18 at 20:00 RAYNE FITCH MD May 13, 2018 08:33
[2018-05-13] MEDS ORDERED: ALBUMIN HUMAN 25% 100 ML IV PRN (09:25)
[2018-05-13] MEDS: ALBUMIN HUMAN 25% 100 ML IV PRN (11:31)
--- NOTE | 2018-05-13 12:47 | PN ---
Date/Time of Note Date/Time of Note DATE: 05/13/18 TIME: 12:46 Assessment/Plan VTE Prophylaxis Risk score (from Nsg)>0 risk: 10 SCD applied (from Nsg): Yes Pharmacological prophylaxis: heparin Lines/Catheters IV Catheter Type (from Nrsg): Peripheral IV Urinary Cath still in place: No Assessment/Plan Hospital Course 72 yo male with ESRD with recently diagnosis with mesothelioma here with hypoxic/hypercapneic respiratory failure, now DNR/DNI and actively dying though patient's family refusing comfort measures. Prefer to continue aggressive treatment - Continue BIPAP for hypercapneic respiratory faiulre ESRD: - HD as tolerated per Dr Bradley Damon Fib: - PRN metoprolol for RVR Mesothelioma: - No care to be offered per Dr Levin DNR/DNI Result Diagram: 05/10/18192205/10/181922 Results 24hrs Laboratory Tests Test 05/12/18 14:21 05/12/18 17:49 05/12/18 20:20 05/13/18 01:25 Bedside Glucose 77 76 79 74 Test 05/13/18 05:09 05/13/18 08:06 Bedside Glucose 78 70 Subjective 24 Hr Interval Summary Free Text/Dictation Patient on BIPAP Receiving dialysis In A Fib mild RVR Exam/Review of Systems Vital Signs Vitals Vital Signs Date Temp Pulse Resp B/P (MAP) Pulse Ox O2 O2 Flow FiO2 Time Delivery Rate 05/13/18 98.4 116 20 89/55 (66) 95 Mask 11:47 05/13/18 45 11:31 05/12/18 5.0 08:31 Intake and Output 05/12/18 05/12/18 05/13/18 1515:00 23:00 07:00 IntakeIntake Total 440 ml 50 ml 590 ml OutputOutput Total 0 ml BalanceBalance 440 ml 50 ml 590 ml Medications Medications Current Medications Dextrose (D50w Syringe) 25 ml Q15M PRN IV DECREASED GLUCOSE; Start 05/03/18 at 19:30 Glucagon (Glucagen) 1 mg Q15M PRN IM DECREASED GLUCOSE; Start 05/03/18 at 19:30 Ondansetron HCl (Zofran Inj) 4 mg Q4H PRN IV NAUSEA AND/OR VOMITING; Start 05/10/18 at 20:30 Acetaminophen (Tylenol Tab) 650 mg Q4H PRN PO MILD PAIN(1-3)OR ELEVATED TEMP; Start 05/10/18 at 20:30 Miscellaneous Information 1 ea NOTE XX ; Start 05/10/18 at 20:30 Glucose (Glutose) 15 gm Q15M PRN PO DECREASED GLUCOSE; Start 05/10/18 at 20:30 Glucose (Glutose) 22.5 gm Q15M PRN PO DECREASED GLUCOSE; Start 05/10/18 at 20:30 Dextrose (D50w Syringe) 25 ml Q15M PRN IV DECREASED GLUCOSE; Start 05/10/18 at 20:30 Dextrose (D50w Syringe) 50 ml Q15M PRN IV DECREASED GLUCOSE; Start 05/10/18 at 20:30 Glucagon (Glucagen) 1 mg Q15M PRN IM DECREASED GLUCOSE; Start 05/10/18 at 20:30 Glucose (Glutose) 15 gm Q15M PRN BUCCAL DECREASED GLUCOSE; Start 05/10/18 at 20:30 Insulin Aspart (Novolog Insulin Pen) NOVOLOG *MILD* ALGORI... Q4 SC ; Start 05/10/18 at 21:00 Acetaminophen (Tylenol Supp) 650 mg Q4H PRN [place] MILD PAIN(1-3) OR TEMP>38C Last administered on 05/12/18at 23:25; Admin Dose 650 MG; Start 05/10/18 at 20:30 Levetiracetam 100 ml @ 400 mls/hr BID IVPB Last administered on 05/13/18at 08:10; Admin Dose 400 MLS/HR; Start 05/11/18 at 09:00 Morphine Sulfate (morphine SULFATE (PF)) 3 mg Q2 PRN IV dypsnea Last administered on 05/12/18at 10:31; Admin Dose 3 MG; Start 05/11/18 at 09:00 Lorazepam (Ativan) 1 mg Q2 PRN IV SEDATION; Start 05/11/18 at 09:00 Vancomycin HCl (Vanco Iv Per Pharmacy) VANCOMYCIN PER PHARMACY PER PROTOCOL XX ; Start 05/12/18 at 17:30 Cefepime HCl 50 ml @ 100 mls/hr Q24H IVPB Last administered on 05/12/18at 19:13; Admin Dose 100 MLS/HR; Start 05/12/18 at 17:30 Dextrose/Sodium Chloride 1,000 ml @ 40 mls/hr Q24H IV Last administered on 05/12/18at 20:25; Admin Dose 40 MLS/HR; Start 05/12/18 at 20:00 Albumin Human 100 ml @ 100 mls/hr DURING DIALYSIS PRN IV BLOOD PRESSURE SUPPORT Last administered on 05/13/18at 11:31; Admin Dose 100 MLS/HR; Start 05/13/18 at 11:30 Metoprolol Tartrate (Lopressor) 5 mg ONCE ONCE IV Last administered on 05/13/18at 12:41; Admin Dose 5 MG; Start 05/13/18 at 13:00; Stop 05/13/18 at 13:01 BASIM PLASENCIA MD May 13, 2018 12:46
[2018-05-13] MEDS ORDERED: METOPROLOL 5 MG INJ IV ONE (13:00)
[2018-05-13] MEDS: CEFEPIME 1GM/50 ML (PMX) 50 ML IVPB SCH (18:22)
[2018-05-13] MEDS: DEXTROSE 5%-0.45% NACL 1,000 ML IV SCH (20:00)
[2018-05-13] MEDS: ACETAMINOPHEN 650 MG SUPP PR PRN (20:39)
[2018-05-14] VITALS (23 sets, daily range): BP systolic 100–110; BP diastolic 51–54; PULSE 72–104; RESP 16–20
[2018-05-14] MEDS: INSULIN ASPART [NOVOLOG] 3 ML PEN SC SCH ×5 (01:00→18:00)
[2018-05-14] MEDS: LEVETIRACETAM 500 MG (PMX) 100 ML IVPB SCH ×2 (09:12→22:01)
[2018-05-14] MEDS: DEXTROSE 5%-0.45% NACL 1,000 ML IV SCH (11:49)
--- NOTE | 2018-05-14 13:46 | PN ---
Date/Time of Note Date/Time of Note DATE: 05/14/18 TIME: 13:43 Assessment/Plan VTE Prophylaxis Risk score (from Nsg)>0 risk: 3 SCD applied (from Nsg): Yes Pharmacological prophylaxis: heparin Lines/Catheters IV Catheter Type (from Nrsg): Peripheral IV Urinary Cath still in place: No Assessment/Plan Hospital Course 72 yo male with ESRD with recently diagnosis with mesothelioma here with hypoxic/hypercapneic respiratory failure, now DNR/DNI and actively dying though patient's family refusing comfort measures. Prefer to continue aggressive treatment - Continue BIPAP for hypercapneic respiratory faiulre per patient's family ESRD: - HD as tolerated per Dr Bradley Damon Fib: - PRN metoprolol for RVR Mesothelioma: - No care to be offered per Dr Levin DNR/DNI Result Diagram: 05/10/18192205/10/181922 Results 24hrs Laboratory Tests Test 05/13/18 14:06 05/13/18 18:30 05/13/18 20:40 05/14/18 01:11 Bedside Glucose 72 78 76 76 Test 05/14/18 05:01 05/14/18 05:39 05/14/18 09:11 05/14/18 11:47 Random Vancomycin 13.8 Level Bedside Glucose 80 77 76 Subjective 24 Hr Interval Summary Free Text/Dictation has been on bipap all night. Again I explained to his family he is dying and BIPAP not ideal for comfort. Son Bk is insistent on keepign it on, feels to take it off is "killing him" Patinet did not tolerate HD session yesterday Exam/Review of Systems Vital Signs Vitals Vital Signs Date Temp Pulse Resp B/P (MAP) Pulse Ox O2 O2 Flow FiO2 Time Delivery Rate 05/14/18 98.0 92 16 110/54 97 BIPAP 11:51 (72) 05/14/18 40 05:33 05/12/18 5.0 08:31 Intake and Output 05/13/18 05/13/18 05/14/18 1515:00 23:00 07:00 IntakeIntake Total 600 ml 440 ml OutputOutput Total 1400 ml 0 ml BalanceBalance -1400 ml 600 ml 440 ml Medications Medications Current Medications Glucagon (Glucagen) 1 mg Q15M PRN IM DECREASED GLUCOSE; Start 05/03/18 at 19:30 Ondansetron HCl (Zofran Inj) 4 mg Q4H PRN IV NAUSEA AND/OR VOMITING; Start 05/10/18 at 20:30 Acetaminophen (Tylenol Tab) 650 mg Q4H PRN PO MILD PAIN(1-3)OR ELEVATED TEMP; Start 05/10/18 at 20:30 Miscellaneous Information 1 ea NOTE XX ; Start 05/10/18 at 20:30 Glucose (Glutose) 15 gm Q15M PRN PO DECREASED GLUCOSE; Start 05/10/18 at 20:30 Glucose (Glutose) 22.5 gm Q15M PRN PO DECREASED GLUCOSE; Start 05/10/18 at 20:30 Dextrose (D50w Syringe) 25 ml Q15M PRN IV DECREASED GLUCOSE; Start 05/10/18 at 20:30 Dextrose (D50w Syringe) 50 ml Q15M PRN IV DECREASED GLUCOSE; Start 05/10/18 at 20:30 Glucagon (Glucagen) 1 mg Q15M PRN IM DECREASED GLUCOSE; Start 05/10/18 at 20:30 Glucose (Glutose) 15 gm Q15M PRN BUCCAL DECREASED GLUCOSE; Start 05/10/18 at 20:30 Acetaminophen (Tylenol Supp) 650 mg Q4H PRN [place] MILD PAIN(1-3) OR TEMP>38C Last administered on 05/13/18at 20:39; Admin Dose 650 MG; Start 05/10/18 at 20:30 Levetiracetam 100 ml @ 400 mls/hr BID IVPB Last administered on 05/14/18at 09:12; Admin Dose 400 MLS/HR; Start 05/11/18 at 09:00 Morphine Sulfate (morphine SULFATE (PF)) 3 mg Q2 PRN IV dypsnea Last administered on 05/12/18at 10:31; Admin Dose 3 MG; Start 05/11/18 at 09:00 Lorazepam (Ativan) 1 mg Q2 PRN IV SEDATION; Start 05/11/18 at 09:00 Vancomycin HCl (Vanco Iv Per Pharmacy) VANCOMYCIN PER PHARMACY PER PROTOCOL XX ; Start 05/12/18 at 17:30 Cefepime HCl 50 ml @ 100 mls/hr Q24H IVPB Last administered on 05/13/18at 18:22; Admin Dose 100 MLS/HR; Start 05/12/18 at 17:30 Dextrose/Sodium Chloride 1,000 ml @ 40 mls/hr Q24H IV Last administered on 03/22at 11:49; Admin Dose 40 MLS/HR; Start 05/12/18 at 20:00 Albumin Human 100 ml @ 100 mls/hr DURING DIALYSIS PRN IV BLOOD PRESSURE SUPPORT Last administered on 05/13/18at 11:31; Admin Dose 100 MLS/HR; Start 05/13/18 at 11:30 Insulin Aspart (Novolog Insulin Pen) NOVOLOG *MILD* ALGORI... Q6 SC ; Start 05/14/18 at 12:00 BAISM PLASENCIA MD May 14, 2018 13:46
--- NOTE | 2018-05-14 14:01 | CONS ---
Date/Time of Note Date/Time of Note DATE: 05/14/18 TIME: 14:01 Assessment/Plan Assessment/Plan Assessment/Plan 1. Acute metabolic encephalopathy 2. Chronic thalamic lacunar infarct 3. ESRD on HD TTS schedule 4. H/o mesothelioma Plan: pt is lethargic on BIPAP- iV abx as per PMD during last HD pt becomes hypotensive and went into atrial fibrillatoi, HD has to stop after 1 hr- pt lethargic on BIPAP, Family still want to attempt HD tomorrow explained to them pt is not tolerating HD and consider hospice care, he said he will think about it Result Diagram: 05/10/18192205/10/181922 Results 24hrs Laboratory Tests Test 05/13/18 14:06 05/13/18 18:30 05/13/18 20:40 05/14/18 01:11 Bedside Glucose 72 78 76 76 Test 05/14/18 05:01 05/14/18 05:39 05/14/18 09:11 05/14/18 11:47 Random Vancomycin 13.8 Level Bedside Glucose 80 77 76 Consultation Date/Type/Reason Admit Date/Time May 03, 2018 at 18:02 Initial Consult Date 05/03/18 Type of Consult NEPHROLOGY Requesting Provider: KATHARINE PETERS 24 HR Interval Summary Free Text/Dictation pt lethargic on BIPAP, Family still want to attempt HD tomorrow Exam/Review of Systems Vital Signs Vitals Vital Signs Date Temp Pulse Resp B/P (MAP) Pulse Ox O2 O2 Flow FiO2 Time Delivery Rate 05/14/18 98 12:00 05/14/18 98.0 16 110/54 97 BIPAP 11:51 (72) 05/14/18 40 05:33 05/12/18 5.0 08:31 Intake and Output 05/13/18 05/13/18 05/14/18 1515:00 23:00 07:00 IntakeIntake Total 600 ml 440 ml OutputOutput Total 1400 ml 0 ml BalanceBalance -1400 ml 600 ml 440 ml Exam Constitutional: moderate distress on BIPAP Respiratory: Bilateral Coarse BS+, diffuse wheezing Cardiovascular: regular rate and rhythm, nl pulses Gastrointestinal: soft, non-tender Musculoskeletal: nl extremities to inspection Neurological: lethargic on BIPAP Medications Medications Current Medications Glucagon (Glucagen) 1 mg Q15M PRN IM DECREASED GLUCOSE; Start 05/03/18 at 19:30 Ondansetron HCl (Zofran Inj) 4 mg Q4H PRN IV NAUSEA AND/OR VOMITING; Start 05/10/18 at 20:30 Acetaminophen (Tylenol Tab) 650 mg Q4H PRN PO MILD PAIN(1-3)OR ELEVATED TEMP; Start 05/10/18 at 20:30 Miscellaneous Information 1 ea NOTE XX ; Start 05/10/18 at 20:30 Glucose (Glutose) 15 gm Q15M PRN PO DECREASED GLUCOSE; Start 05/10/18 at 20:30 Glucose (Glutose) 22.5 gm Q15M PRN PO DECREASED GLUCOSE; Start 05/10/18 at 20:30 Dextrose (D50w Syringe) 25 ml Q15M PRN IV DECREASED GLUCOSE; Start 05/10/18 at 20:30 Dextrose (D50w Syringe) 50 ml Q15M PRN IV DECREASED GLUCOSE; Start 05/10/18 at 20:30 Glucagon (Glucagen) 1 mg Q15M PRN IM DECREASED GLUCOSE; Start 05/10/18 at 20:30 Glucose (Glutose) 15 gm Q15M PRN BUCCAL DECREASED GLUCOSE; Start 05/10/18 at 20:30 Acetaminophen (Tylenol Supp) 650 mg Q4H PRN [place] MILD PAIN(1-3) OR TEMP>38C Last administered on 05/13/18at 20:39; Admin Dose 650 MG; Start 05/10/18 at 20:30 Levetiracetam 100 ml @ 400 mls/hr BID IVPB Last administered on 05/14/18at 09 :12; Admin Dose 400 MLS/HR; Start 05/11/18 at 09:00 Morphine Sulfate (morphine SULFATE (PF)) 3 mg Q2 PRN IV dypsnea Last administered on 05/12/18at 10:31; Admin Dose 3 MG; Start 05/11/18 at 09:00 Lorazepam (Ativan) 1 mg Q2 PRN IV SEDATION; Start 05/11/18 at 09:00 Vancomycin HCl (Vanco Iv Per Pharmacy) VANCOMYCIN PER PHARMACY PER PROTOCOL XX ; Start 05/12/18 at 17:30 Cefepime HCl 50 ml @ 100 mls/hr Q24H IVPB Last administered on 05/13/18at 18:22; Admin Dose 100 MLS/HR; Start 05/12/18 at 17:30 Dextrose/Sodium Chloride 1,000 ml @ 40 mls/hr Q24H IV Last administered on 05/14/18at 11:49; Admin Dose 40 MLS/HR; Start 05/12/18 at 20:00 Albumin Human 100 ml @ 100 mls/hr DURING DIALYSIS PRN IV BLOOD PRESSURE SUPPORT Last administered on 05/13/18at 11:31; Admin Dose 100 MLS/HR; Start 05/13/18 at 11:30 Insulin Aspart (Novolog Insulin Pen) NOVOLOG *MILD* ALGORI... Q6 SC ; Start 05/14/18 at 12:00 RAYNE FITCH MD May 14, 2018 14:01
[2018-05-14] MEDS ORDERED: VANCOMYCIN 1 GM 250 ML IVPB SCH (16:00)
[2018-05-14] MEDS: CEFEPIME 1GM/50 ML (PMX) 50 ML IVPB SCH (19:47)
[2018-05-15] VITALS (31 sets, daily range): BP systolic 70–106; BP diastolic 45–57; PULSE 68–122; RESP 18–22
[2018-05-15] MEDS: INSULIN ASPART [NOVOLOG] 3 ML PEN SC SCH ×4 (06:00→17:23)
[2018-05-15] MEDS: ALBUMIN HUMAN 25% 100 ML IV PRN (09:39)
[2018-05-15] MEDS: DEXTROSE 5%-0.45% NACL 1,000 ML IV SCH (11:00)
[2018-05-15] MEDS: LEVETIRACETAM 500 MG (PMX) 100 ML IVPB SCH ×2 (11:00→22:08)
--- NOTE | 2018-05-15 12:54 | CONS ---
Date/Time of Note Date/Time of Note DATE: 05/15/18 TIME: 12:52 Assessment/Plan Assessment/Plan Assessment/Plan 1. Acute metabolic encephalopathy 2. Chronic thalamic lacunar infarct 3. ESRD on HD TTS schedule 4. H/o mesothelioma 5. DNR Code status Plan: pt is lethargic on BIPAP- iV abx as per PMD during last HD pt becomes hypotensive and went into atrial fibrillatoi, HD has to stop after 1 hr- pt lethargic on BIPAP, Family still want to attempt HD tomorrow pt is not tolerating HD and consider hospice care, family still deciding Approximately 20 min was spend in face to face time with patent's son at the bed side, and in coordination of his care. Patient seen in collaboration with Dr Rowan Huerta. staff. Result Diagram: 05/15/18 0643 05/15/18 0643 Results 24hrs Laboratory Tests Test 05/14/18 18:08 05/15/18 00:03 05/15/18 00:47 05/15/18 05:55 Bedside Glucose 70 63 L 117 77 Test 05/15/18 06:43 05/15/18 07:51 05/15/18 10:52 White Blood Count 7.6 # Red Blood Count 3.39 L Hemoglobin 8.5 L Hematocrit 28.4 L Mean Corpuscular 83.8 Volume Mean Corpuscular 25.1 L Hemoglobin Mean Corpuscular 29.9 L Hemoglobin Concent Red Cell 16.9 H Distribution Width Platelet Count 175 Mean Platelet Volume 10.4 Immature 1.200 H Granulocytes % Neutrophils % 79.8 H Lymphocytes % 11.0 L Monocytes % 7.1 Eosinophils % 0.5 Basophils % 0.4 Nucleated Red Blood 0.0 Cells % Immature 0.090 H Granulocytes # Neutrophils # 6.1 Lymphocytes # 0.8 Monocytes # 0.5 Eosinophils # 0.0 Basophils # 0.0 Nucleated Red Blood 0.0 Cells # Sodium Level 135 Potassium Level 4.8 Chloride Level 98 Carbon Dioxide Level 22 Anion Gap 15 H Blood Urea Nitrogen 58 H Creatinine 3.86 H Est Glomerular Filtrat Rate mL/min Glucose Level 77 Calcium Level 8.2 L Bedside Glucose 77 81 Consultation Date/Type/Reason Admit Date/Time May 03, 2018 at 18:02 Initial Consult Date 05/03/18 Type of Consult NEPHROLOGY Reason for Consultation RENAL INSUFFICIENCY Requesting Provider: KATHARINE PETERS 24 HR Interval Summary Free Text/Dictation HD today for one hour today Constitutional: requiring O2 Exam/Review of Systems Vital Signs Vitals Vital Signs Date Temp Pulse Resp B/P (MAP) Pulse Ox O2 O2 Flow FiO2 Time Delivery Rate 05/15/18 75 20 97/53 (68) 95 BIPAP 12:26 05/15/18 97.8 11:36 05/15/18 40 11:05 05/12/18 5.0 08:31 Intake and Output 05/14/18 05/14/18 05/15/18 1515:00 23:00 07:00 IntakeIntake Total 150 ml 1030 ml BalanceBalance 150 ml 1030 ml Exam Constitutional: alert, well developed, frail Psych: nl mood/affect Head: atraumatic Eyes: nl conjunctiva, EOMI, nl lids, nl sclera ENMT: nl external ears & nose Neck: non-tender Respiratory: diminished breath sounds Cardiovascular: nl pulses, other (s1s2) Gastrointestinal: soft Musculoskeletal: muscle weakness, range of motion Extremities: normal pulses Neurological: confused Skin: nl turgor Medications Medications Current Medications Glucagon (Glucagen) 1 mg Q15M PRN IM DECREASED GLUCOSE; Start 05/03/18 at 19:30 Ondansetron HCl (Zofran Inj) 4 mg Q4H PRN IV NAUSEA AND/OR VOMITING; Start 05/10/18 at 20:30 Acetaminophen (Tylenol Tab) 650 mg Q4H PRN PO MILD PAIN(1-3)OR ELEVATED TEMP; Start 05/10/18 at 20:30 Miscellaneous Information 1 ea NOTE XX ; Start 05/10/18 at 20:30 Glucose (Glutose) 15 gm Q15M PRN PO DECREASED GLUCOSE; Start 05/10/18 at 20:30 Glucose (Glutose) 22.5 gm Q15M PRN PO DECREASED GLUCOSE; Start 05/10/18 at 20:30 Dextrose (D50w Syringe) 25 ml Q15M PRN IV DECREASED GLUCOSE; Start 05/10/18 at 20:30 Dextrose (D50w Syringe) 50 ml Q15M PRN IV DECREASED GLUCOSE Last administered on 05/15/18at 00:08; Admin Dose 50 ML; Start 05/10/18 at 20:30 Glucagon (Glucagen) 1 mg Q15M PRN IM DECREASED GLUCOSE; Start 05/10/18 at 20:30 Glucose (Glutose) 15 gm Q15M PRN BUCCAL DECREASED GLUCOSE; Start 05/10/18 at 20:30 Acetaminophen (Tylenol Supp) 650 mg Q4H PRN [place] MILD PAIN(1-3) OR TEMP>38C Last administered on 05/13/18at 20:39; Admin Dose 650 MG; Start 05/10/18 at 20:30 Levetiracetam 100 ml @ 400 mls/hr BID IVPB Last administered on 05/15/18at 11:00; Admin Dose 400 MLS/HR; Start 05/11/18 at 09:00 Morphine Sulfate (morphine SULFATE (PF)) 3 mg Q2 PRN IV dypsnea Last administered on 05/12/18at 10:31; Admin Dose 3 MG; Start 05/11/18 at 09:00 Lorazepam (Ativan) 1 mg Q2 PRN IV SEDATION; Start 05/11/18 at 09:00 Vancomycin HCl (Vanco Iv Per Pharmacy) VANCOMYCIN PER PHARMACY PER PROTOCOL XX ; Start 05/12/18 at 17:30 Cefepime HCl 50 ml @ 100 mls/hr Q24H IVPB Last administered on 05/14/18at 19:47; Admin Dose 100 MLS/HR; Start 05/12/18 at 17:30 Dextrose/Sodium Chloride 1,000 ml @ 40 mls/hr Q24H IV Last administered on 05/14/18at 11:49; Admin Dose 40 MLS/HR; Start 05/12/18 at 20:00 Albumin Human 100 ml @ 100 mls/hr DURING DIALYSIS PRN IV BLOOD PRESSURE SUPPORT Last administered on 05/15/18at 09:39; Admin Dose 100 MLS/HR; Start 05/13/18 at 11:30 Insulin Aspart (Novolog Insulin Pen) NOVOLOG *MILD* ALGORI... Q6 SC ; Start 03/22 at 12:00 KIYA ENNIS May 15, 2018 12:54
--- NOTE | 2018-05-15 14:58 | PN ---
Date/Time of Note Date/Time of Note DATE: 05/15/18 TIME: 14:54 Assessment/Plan VTE Prophylaxis Risk score (from Ns)>0 risk: 9 SCD applied (from Ns): Yes Pharmacological prophylaxis: NA/contraindicated Pharm contraindication: low risk/ambulating Lines/Catheters IV Catheter Type (from Nrsg): Peripheral IV Urinary Cath still in place: No Assessment/Plan Hospital Course 72 yo male with ESRD with recently diagnosis with mesothelioma here with hypoxic/hypercapneic respiratory failure, now DNR/DNI and actively dying though patient's family refusing comfort measures. Prefer to continue aggressive treatment - Continue BIPAP for hypercapnic respiratory failure per patient's family request. ESRD: - HD as tolerated per Dr Bradley Damon Fib: - PRN metoprolol for RVR Mesothelioma: - No care to be offered per Dr Levin DNR/DNI Result Diagram: 05/15/1864205/15/18642 Subjective 24 Hr Interval Summary Free Text/Dictation No acute overnight events. Patient mostly unresponsive on BiPAP. Son reinforced he'd like the BiPAP continued, because withdrawing it "feels like killing him" Exam/Review of Systems Vital Signs Vitals Vital Signs Date Temp Pulse Resp B/P (MAP) Pulse Ox O2 O2 Flow FiO2 Time Delivery Rate 05/15/18 119 96 40 13:05 05/15/18 22 70/50 (57) BIPAP 12:46 05/15/18 97.8 11:36 05/12/18 5.0 08:31 Intake and Output 05/14/18 05/14/18 05/15/18 1515:00 23:00 07:00 IntakeIntake Total 150 ml 1030 ml BalanceBalance 150 ml 1030 ml Exam Gen: Fatigued, frail appearing man on BiPAP Neuro: Unresponsive to voice, sternal rub. Protecting airway. Cardio: Regular rate and rhythm, normal pulses Pulm: Mechanical breath sounds bilaterally, diminished on R side. Abd: Soft, nontender Ext: No edema. Medications Medications Current Medications Glucagon (Glucagen) 1 mg Q15M PRN IM DECREASED GLUCOSE; Start 05/03/18 at 19:30 Ondansetron HCl (Zofran Inj) 4 mg Q4H PRN IV NAUSEA AND/OR VOMITING; Start 05/10/18 at 20:30 Acetaminophen (Tylenol Tab) 650 mg Q4H PRN PO MILD PAIN(1-3)OR ELEVATED TEMP; Start 05/10/18 at 20:30 Miscellaneous Information 1 ea NOTE XX ; Start 05/10/18 at 20:30 Glucose (Glutose) 15 gm Q15M PRN PO DECREASED GLUCOSE; Start 05/10/18 at 20:30 Glucose (Glutose) 22.5 gm Q15M PRN PO DECREASED GLUCOSE; Start 05/10/18 at 20:30 Dextrose (D50w Syringe) 25 ml Q15M PRN IV DECREASED GLUCOSE; Start 05/10/18 at 20:30 Dextrose (D50w Syringe) 50 ml Q15M PRN IV DECREASED GLUCOSE Last administered on 05/15/18at 00:08; Admin Dose 50 ML; Start 05/10/18 at 20:30 Glucagon (Glucagen) 1 mg Q15M PRN IM DECREASED GLUCOSE; Start 05/10/18 at 20:30 Glucose (Glutose) 15 gm Q15M PRN BUCCAL DECREASED GLUCOSE; Start 05/10/18 at 20:30 Acetaminophen (Tylenol Supp) 650 mg Q4H PRN [place] MILD PAIN(1-3) OR TEMP>38C Last administered on 05/13/18at 20:39; Admin Dose 650 MG; Start 05/10/18 at 20:30 Levetiracetam 100 ml @ 400 mls/hr BID IVPB Last administered on 05/15/18at 11:00; Admin Dose 400 MLS/HR; Start 05/11/18 at 09:00 Morphine Sulfate (morphine SULFATE (PF)) 3 mg Q2 PRN IV dypsnea Last administered on 05/12/18at 10:31; Admin Dose 3 MG; Start 05/11/18 at 09:00 Lorazepam (Ativan) 1 mg Q2 PRN IV SEDATION; Start 05/11/18 at 09:00 Vancomycin HCl (Vanco Iv Per Pharmacy) VANCOMYCIN PER PHARMACY PER PROTOCOL XX ; Start 05/12/18 at 17:30 Cefepime HCl 50 ml @ 100 mls/hr Q24H IVPB Last administered on 05/14/18at 19: 47; Admin Dose 100 MLS/HR; Start 05/12/18 at 17:30 Dextrose/Sodium Chloride 1,000 ml @ 40 mls/hr Q24H IV Last administered on 05/14/18at 11:49; Admin Dose 40 MLS/HR; Start 05/12/18 at 20:00 Albumin Human 100 ml @ 100 mls/hr DURING DIALYSIS PRN IV BLOOD PRESSURE SUPPORT Last administered on 05/15/18at 09:39; Admin Dose 100 MLS/HR; Start 05/13/18 at 11:30 Insulin Aspart (Novolog Insulin Pen) NOVOLOG *MILD* ALGORI... Q6 SC ; Start 05/14/18 at 12:00 DELIA YU MD May 15, 2018 14:58
[2018-05-15] MEDS: CEFEPIME 1GM/50 ML (PMX) 50 ML IVPB SCH (17:22)
[2018-05-15] MEDS: ACETAMINOPHEN 650 MG SUPP PR PRN (18:07)
[2018-05-15] MEDS ORDERED: ACETAMINOPHEN 1000MG/100ML IV 65 ML IVPB PRN ×2 (20:00)
[2018-05-16] VITALS (23 sets, daily range): BP systolic 84–98; BP diastolic 48–56; PULSE 68–136; RESP 16–18
[2018-05-16] MEDS: ACETAMINOPHEN 1000MG/100ML IV 65 ML IVPB PRN ×2 (03:45→19:55)
[2018-05-16] MEDS: INSULIN ASPART [NOVOLOG] 3 ML PEN SC SCH ×4 (06:00→18:00)
[2018-05-16] MEDS: LEVETIRACETAM 500 MG (PMX) 100 ML IVPB SCH ×2 (08:27→20:59)
--- NOTE | 2018-05-16 12:27 | CONS ---
Date/Time of Note Date/Time of Note DATE: 05/16/18 TIME: 12:27 Assessment/Plan Assessment/Plan Assessment/Plan 1. Acute metabolic encephalopathy 2. Chronic thalamic lacunar infarct 3. ESRD on HD TTS schedule 4. H/o mesothelioma 5. DNR Code status Plan: pt is lethargic on BIPAP- iV abx as per PMD during last HD pt becomes hypotensive and went into atrial fibrillatoi, HD has to stop after 1 hr- pt lethargic on BIPAP, Family still want to attempt HD tomorrow pt is not tolerating HD and consider hospice care, family still deciding Approximately 20 min was spend in face to face time with patent's son at the bed side, and in coordination of his care. Patient seen in collaboration with Dr Rowan Huerta. staff. Result Diagram: 05/15/1843 05/15/1843 Results 24hrs Laboratory Tests Test 05/15/18 17:15 05/16/18 00:50 05/16/18 06:36 05/16/18 09:44 Bedside Glucose 80 79 87 82 Consultation Date/Type/Reason Admit Date/Time May 03, 2018 at 18:02 Initial Consult Date 05/03/18 Type of Consult NEPHROLOGY Reason for Consultation RENAL FAILURE Requesting Provider: KATHARINE PETERS 24 HR Interval Summary Free Text/Dictation NAD On face mask Family at bed side- manipulating/fixing face mask and oxygen tubing - family instructed to call staff for any help ; stated they know how to fix mask/tubing RN notified No new events reported overnight per staff Constitutional: requiring IVF, requiring O2 Exam/Review of Systems Vital Signs Vitals Vital Signs Date Temp Pulse Resp B/P (MAP) Pulse Ox O2 O2 Flow FiO2 Time Delivery Rate 05/16/18 98.3 68 18 92/52 (65) 96 Mechanical 11:31 Ventilator 05/16/18 40 11:20 05/12/18 5.0 08:31 Intake and Output 05/15/18 05/15/18 05/16/18 1515:00 23:00 07:00 IntakeIntake Total 360 ml 875 ml 65 ml OutputOutput Total 400 ml 70 ml BalanceBalance -40 ml 805 ml 65 ml Exam Constitutional: alert, frail Psych: nl mood/affect Head: atraumatic Eyes: nl conjunctiva, nl lids, nl sclera ENMT: nl external ears & nose Neck: non-tender Respiratory: diminished breath sounds (at bases bilaterally) Cardiovascular: nl pulses, other (s1s2) Gastrointestinal: soft, non-tender Musculoskeletal: muscle weakness Extremities: normal pulses Neurological: confused Skin: laceration Lymph: nontender Medications Medications Current Medications Glucagon (Glucagen) 1 mg Q15M PRN IM DECREASED GLUCOSE; Start 05/03/18 at 19:30 Ondansetron HCl (Zofran Inj) 4 mg Q4H PRN IV NAUSEA AND/OR VOMITING; Start 05/10/18 at 20:30 Acetaminophen (Tylenol Tab) 650 mg Q4H PRN PO MILD PAIN(1-3)OR ELEVATED TEMP; Start 05/10/18 at 20:30 Miscellaneous Information 1 ea NOTE XX ; Start 05/10/18 at 20:30 Glucose (Glutose) 15 gm Q15M PRN PO DECREASED GLUCOSE; Start 05/10/18 at 20:30 Glucose (Glutose) 22.5 gm Q15M PRN PO DECREASED GLUCOSE; Start 05/10/18 at 20:30 Dextrose (D50w Syringe) 25 ml Q15M PRN IV DECREASED GLUCOSE; Start 05/10/18 at 20:30 Dextrose (D50w Syringe) 50 ml Q15M PRN IV DECREASED GLUCOSE Last administered on 05/15/18at 00:08; Admin Dose 50 ML; Start 05/10/18 at 20:30 Glucagon (Glucagen) 1 mg Q15M PRN IM DECREASED GLUCOSE; Start 05/10/18 at 20:30 Glucose (Glutose) 15 gm Q15M PRN BUCCAL DECREASED GLUCOSE; Start 05/10/18 at 20:30 Levetiracetam 100 ml @ 400 mls/hr BID IVPB Last administered on 05/16/18at 08:27; Admin Dose 400 MLS/HR; Start 05/11/18 at 09:00 Morphine Sulfate (morphine SULFATE (PF)) 3 mg Q2 PRN IV dypsnea Last administered on 05/12/18at 10:31; Admin Dose 3 MG; Start 05/11/18 at 09:00 Lorazepam (Ativan) 1 mg Q2 PRN IV SEDATION; Start 05/11/18 at 09:00 Vancomycin HCl (Vanco Iv Per Pharmacy) VANCOMYCIN PER PHARMACY PER PROTOCOL XX ; Start 05/12/18 at 17:30 Cefepime HCl 50 ml @ 100 mls/hr Q24H IVPB Last administered on 05/15/18at 17:22; Admin Dose 100 MLS/HR; Start 05/12/18 at 17:30 Dextrose/Sodium Chloride 1,000 ml @ 40 mls/hr Q24H IV Last administered on 05/15/18at 11:00; Admin Dose 40 MLS/HR; Start 05/12/18 at 20:00 Albumin Human 100 ml @ 100 mls/hr DURING DIALYSIS PRN IV BLOOD PRESSURE SUPPORT Last administered on 05/15/18at 09:39; Admin Dose 100 MLS/HR; Start 05/13/18 at 11:30 Insulin Aspart (Novolog Insulin Pen) NOVOLOG *MILD* ALGORI... Q6 SC ; Start 05/14/18 at 12:00 Acetaminophen 65 ml @ 400 mls/hr Q4H PRN IVPB MILD PAIN: 1-3, OR FEVER >38C Last administered on 05/16/18at 03:45; Admin Dose 400 MLS/HR; Start 05/15/18 at 21:00; Stop 05/16/18 at 20:59 KIYA ENNIS May 16, 2018 12:27
[2018-05-16] MEDS: DEXTROSE 5%-0.45% NACL 1,000 ML IV SCH (14:07)
--- NOTE | 2018-05-16 16:01 | PN ---
Date/Time of Note Date/Time of Note DATE: 05/16/18 TIME: 16:00 Assessment/Plan VTE Prophylaxis Risk score (from Nsg)>0 risk: 4 SCD applied (from Nsg): Yes Pharmacological prophylaxis: NA/contraindicated Pharm contraindication: other (dying) Lines/Catheters IV Catheter Type (from Nrs): [place] Lock Urinary Cath still in place: No Assessment/Plan Hospital Course 72 yo male with ESRD with recently diagnosis with mesothelioma here with hypoxic/hypercapneic respiratory failure, now DNR/DNI and actively dying though patient's family refusing comfort measures. Prefer to continue aggressive treatment - Continue BIPAP for hypercapnic respiratory failure per patient's family request. ESRD: - HD as tolerated per Dr Bradley Damon Fib: - PRN metoprolol for RVR Mesothelioma: - No care to be offered per Dr Levin DNR/DNI Result Diagram: 05/15/1864205/15/18642 Results 24hrs Laboratory Tests Test 05/15/18 17:15 05/16/18 00:50 05/16/18 06:36 05/16/18 09:44 Bedside Glucose 80 79 87 82 Test 05/16/18 14:27 Bedside Glucose 80 Subjective 24 Hr Interval Summary Free Text/Dictation No acute overnight events. Patient has rectal impaction; family declined disimpaction. Exam/Review of Systems Vital Signs Vitals Vital Signs Date Temp Pulse Resp B/P (MAP) Pulse Ox O2 O2 Flow FiO2 Time Delivery Rate 05/16/18 97.8 71 18 98/56 (70) 96 Mechanical 15:37 Ventilator 05/16/18 40 15:05 05/12/18 5.0 08:31 Intake and Output 05/15/18 05/15/18 05/16/18 1414:59 22:59 06:59 IntakeIntake Total 360 ml 875 ml 65 ml OutputOutput Total 400 ml 70 ml BalanceBalance -40 ml 805 ml 65 ml Exam Gen: Fatigued, frail appearing man on BiPAP Neuro: Licensing [employer] Magistrate hand on command. Cardio: Regular rate and rhythm, normal pulses Pulm: Mechanical breath sounds bilaterally, diminished on R side. Abd: Soft, nontender Ext: No edema. Medications Medications Current Medications Glucagon (Glucagen) 1 mg Q15M PRN IM DECREASED GLUCOSE; Start 05/03/18 at 19:30 Ondansetron HCl (Zofran Inj) 4 mg Q4H PRN IV NAUSEA AND/OR VOMITING; Start 05/10/18 at 20:30 Acetaminophen (Tylenol Tab) 650 mg Q4H PRN PO MILD PAIN(1-3)OR ELEVATED TEMP; Start 05/10/18 at 20:30 Miscellaneous Information 1 ea NOTE XX ; Start 05/10/18 at 20:30 Glucose (Glutose) 15 gm Q15M PRN PO DECREASED GLUCOSE; Start 05/10/18 at 20:30 Glucose (Glutose) 22.5 gm Q15M PRN PO DECREASED GLUCOSE; Start 05/10/18 at 20:30 Dextrose (D50w Syringe) 25 ml Q15M PRN IV DECREASED GLUCOSE; Start 05/10/18 at 20:30 Dextrose (D50w Syringe) 50 ml Q15M PRN IV DECREASED GLUCOSE Last administered on 05/15/18at 00:08; Admin Dose 50 ML; Start 05/10/18 at 20:30 Glucagon (Glucagen) 1 mg Q15M PRN IM DECREASED GLUCOSE; Start 05/10/18 at 20:30 Glucose (Glutose) 15 gm Q15M PRN BUCCAL DECREASED GLUCOSE; Start 05/10/18 at 20:30 Levetiracetam 100 ml @ 400 mls/hr BID IVPB Last administered on 05/16/18at 08:27; Admin Dose 400 MLS/HR; Start 05/11/18 at 09:00 Morphine Sulfate (morphine SULFATE (PF)) 3 mg Q2 PRN IV dypsnea Last administered on 05/12/18at 10:31; Admin Dose 3 MG; Start 05/11/18 at 09:00 Lorazepam (Ativan) 1 mg Q2 PRN IV SEDATION; Start 05/11/18 at 09:00 Vancomycin HCl (Vanco Iv Per Pharmacy) VANCOMYCIN PER PHARMACY PER PROTOCOL XX ; Start 05/12/18 at 17:30 Cefepime HCl 50 ml @ 100 mls/hr Q24H IVPB Last administered on 05/15/18at 17:22; Admin Dose 100 MLS/HR; Start 05/12/18 at 17:30 Dextrose/Sodium Chloride 1,000 ml @ 40 mls/hr Q24H IV Last administered on 05/16/18at 14:07; Admin Dose 40 MLS/HR; Start 05/12/18 at 20:00 Albumin Human 100 ml @ 100 mls/hr DURING DIALYSIS PRN IV BLOOD PRESSURE SUPPORT Last administered on 05/15/18at 09:39; Admin Dose 100 MLS/HR; Start 05/13/18 at 11:30 Insulin Aspart (Novolog Insulin Pen) NOVOLOG *MILD* ALGORI... Q6 SC ; Start 05/14/18 at 12:00 Acetaminophen 65 ml @ 400 mls/hr Q4H PRN IVPB MILD PAIN: 1-3, OR FEVER >38C Last administered on 05/16/18at 03:45; Admin Dose 400 MLS/HR; Start 05/15/18 at 21:00; Stop 05/16/18 at 20:59 Miscellaneous Information (*Rx Drug Level Order Reminder*) RANDOM VANCOMYCIN LEVEL 1... ONCE ONCE XX ; Start 05/17/18 at 05:00; Stop 05/17/18 at 05:01 DELIA YU MD May 16, 2018 16:01
[2018-05-16] MEDS: CEFEPIME 1GM/50 ML (PMX) 50 ML IVPB SCH (16:31)
[2018-05-17] VITALS (22 sets, daily range): BP systolic 90–102; BP diastolic 47–56; PULSE 39–91; RESP 16–18
[2018-05-17] MEDS: morphine SULFATE/PF (2 MG/2 ML) SYG IV PRN (04:12)
[2018-05-17] MEDS: INSULIN ASPART [NOVOLOG] 3 ML PEN SC SCH ×4 (06:00→18:00)
[2018-05-17] MEDS: LEVETIRACETAM 500 MG (PMX) 100 ML IVPB SCH ×2 (09:18→21:07)
--- NOTE | 2018-05-17 11:08 | CONS ---
Date/Time of Note Date/Time of Note DATE: 05/17/18 TIME: 11:03 Assessment/Plan Assessment/Plan Hospital Course Second son has arrived today family conference scheduled at noon. Assessment/Plan Acute respiratory failure On BiPAP Mesothelioma Patient is too old to receive any treatment per oncology Mental status changes secondary to hypoxia multifactorial On May 14, 2018 had a long discussion with patient's 2 sons concerning ongoing level of care, goals of care, pain and suffering and longevity. Vision second son has arrived in from out of town after long discussion with both sons they have decided that 1 to continue with hemodialysis in this level of care. I explained to them that in my opinion patient is suffering on BiPAP even if he does have some respiratory improvement he still has mesothelioma and there is no current treatment can be given, patient and his debilitated cond ition. Emphasized that the patient was struggling to breathe on BiPAP. Patient's is at the bedside also. At the end of the discussion once again patient 2 sons are insisting to continue with this level of care. Result Diagram: 05/15/18 0643 05/15/18 0643 Results 24hrs Laboratory Tests Test 05/16/18 14:27 05/16/18 17:59 05/17/18 05:24 05/17/18 06:38 Bedside Glucose 80 78 81 Random Vancomycin 14.6 Level Consultation Date/Type/Reason Admit Date/Time May 03, 2018 at 18:02 Hx of Present Illness Postdated note for hospital visit May 16, 2018 Past Medical History Medical History: high cholesterol, hypertension, other (ESRD on HD ) Medications Current Medications Glucagon (Glucagen) 1 mg Q15M PRN IM DECREASED GLUCOSE; Start 05/03/18 at 19:30 Ondansetron HCl (Zofran Inj) 4 mg Q4H PRN IV NAUSEA AND/OR VOMITING; Start 05/10/18 at 20:30 Acetaminophen (Tylenol Tab) 650 mg Q4H PRN PO MILD PAIN(1-3)OR ELEVATED TEMP; Start 05/10/18 at 20:30 Miscellaneous Information 1 ea NOTE XX ; Start 05/10/18 at 20:30 Glucose (Glutose) 15 gm Q15M PRN PO DECREASED GLUCOSE; Start 05/10/18 at 20:30 Glucose (Glutose) 22.5 gm Q15M PRN PO DECREASED GLUCOSE; Start 05/10/18 at 20:30 Dextrose (D50w Syringe) 25 ml Q15M PRN IV DECREASED GLUCOSE; Start 05/10/18 at 20:30 Dextrose (D50w Syringe) 50 ml Q15M PRN IV DECREASED GLUCOSE Last administered on 05/15/18at 00:08; Admin Dose 50 ML; Start 05/10/18 at 20:30 Glucagon (Glucagen) 1 mg Q15M PRN IM DECREASED GLUCOSE; Start 05/10/18 at 20:30 Glucose (Glutose) 15 gm Q15M PRN BUCCAL DECREASED GLUCOSE; Start 05/10/18 at 20:30 Levetiracetam 100 ml @ 400 mls/hr BID IVPB Last administered on 05/17/18at 09:18; Admin Dose 400 MLS/HR; Start 05/11/18 at 09:00 Morphine Sulfate (morphine SULFATE (PF)) 3 mg Q2 PRN IV dypsnea Last administered on 05/17/18at 04:12; Admin Dose 3 MG; Start 05/11/18 at 09:00 Lorazepam (Ativan) 1 mg Q2 PRN IV SEDATION; Start 05/11/18 at 09:00 Vancomycin HCl (Vanco Iv Per Pharmacy) VANCOMYCIN PER PHARMACY PER PROTOCOL XX ; Start 05/12/18 at 17:30 Cefepime HCl 50 ml @ 100 mls/hr Q24H IVPB Last administered on 05/16/18at 16:31; Admin Dose 100 MLS/HR; Start 05/12/18 at 17:30 Dextrose/Sodium Chloride 1,000 ml @ 40 mls/hr Q24H IV Last administered on 05/16/18at 14:07; Admin Dose 40 MLS/HR; Start 05/12/18 at 20:00 Albumin Human 100 ml @ 100 mls/hr DURING DIALYSIS PRN IV BLOOD PRESSURE SUPPORT Last administered on 05/15/18at 09:39; Admin Dose 100 MLS/HR; Start 05/13/18 at 11:30 Insulin Aspart (Novolog Insulin Pen) NOVOLOG *MILD* ALGORI... Q6 SC ; Start 05/14/18 at 12:00 Vancomycin HCl 250 ml @ 125 mls/hr Q96H IVPB ; Start 05/17/18 at 16:00 Allergies: Coded Allergies: No Known Allergy (Unverified , 03/22/18) Past Surgical History Past Surgical Hx: no surgical history, other Social History Alcohol Use: none Smoking Status: Never smoker Drug Use: none Exam/Review of Systems Vital Signs Vitals Vital Signs Date Temp Pulse Resp B/P (MAP) Pulse Ox O2 O2 Flow FiO2 Time Delivery Rate 05/17/18 76 98 50 09:05 05/17/18 97.9 18 101/56 07:13 (71) 05/16/18 Mechanical 15:37 Ventilator Intake and Output 05/16/18 05/16/18 05/17/18 1515:00 23:00 07:00 IntakeIntake Total 775 ml 175 ml OutputOutput Total 0 ml BalanceBalance 775 ml 175 ml Medications Medications Current Medications Glucagon (Glucagen) 1 mg Q15M PRN IM DECREASED GLUCOSE; Start 05/03/18 at 19:30 Ondansetron HCl (Zofran Inj) 4 mg Q4H PRN IV NAUSEA AND/OR VOMITING; Start 05/10/18 at 20:30 Acetaminophen (Tylenol Tab) 650 mg Q4H PRN PO MILD PAIN(1-3)OR ELEVATED TEMP; Start 05/10/18 at 20:30 Miscellaneous Information 1 ea NOTE XX ; Start 05/10/18 at 20:30 Glucose (Glutose) 15 gm Q15M PRN PO DECREASED GLUCOSE; Start 05/10/18 at 20:30 Glucose (Glutose) 22.5 gm Q15M PRN PO DECREASED GLUCOSE; Start 05/10/18 at 20:30 Dextrose (D50w Syringe) 25 ml Q15M PRN IV DECREASED GLUCOSE; Start 05/10/18 at 20:30 Dextrose (D50w Syringe) 50 ml Q15M PRN IV DECREASED GLUCOSE Last administered on 05/15/18at 00:08; Admin Dose 50 ML; Start 05/10/18 at 20:30 Glucagon (Glucagen) 1 mg Q15M PRN IM DECREASED GLUCOSE; Start 05/10/18 at 20:30 Glucose (Glutose) 15 gm Q15M PRN BUCCAL DECREASED GLUCOSE; Start 05/10/18 at 20:30 Levetiracetam 100 ml @ 400 mls/hr BID IVPB Last administered on 05/17/18at 09:18; Admin Dose 400 MLS/HR; Start 05/11/18 at 09:00 Morphine Sulfate (morphine SULFATE (PF)) 3 mg Q2 PRN IV dypsnea Last administered on 05/17/18at 04:12; Admin Dose 3 MG; Start 05/11/18 at 09:00 Lorazepam (Ativan) 1 mg Q2 PRN IV SEDATION; Start 05/11/18 at 09:00 Vancomycin HCl (Vanco Iv Per Pharmacy) VANCOMYCIN PER PHARMACY PER PROTOCOL XX ; Start 05/12/18 at 17:30 Cefepime HCl 50 ml @ 100 mls/hr Q24H IVPB Last administered on 05/16/18at 16:31; Admin Dose 100 MLS/HR; Start 05/12/18 at 17:30 Dextrose/Sodium Chloride 1,000 ml @ 40 mls/hr Q24H IV Last administered on 05/16/18at 14:07; Admin Dose 40 MLS/HR; Start 05/12/18 at 20:00 Albumin Human 100 ml @ 100 mls/hr DURING DIALYSIS PRN IV BLOOD PRESSURE SUPPORT Last administered on 05/15/18at 09:39; Admin Dose 100 MLS/HR; Start 05/13/18 at 11:30 Insulin Aspart (Novolog Insulin Pen) NOVOLOG *MILD* ALGORI... Q6 SC ; Start 05/04 05/22 at 12:00 Vancomycin HCl 250 ml @ 125 mls/hr Q96H IVPB ; Start 05/17/18 at 16:00 LAUREN SCHMITZ May 17, 2018 11:08
--- NOTE | 2018-05-17 12:46 | CONS ---
Date/Time of Note Date/Time of Note DATE: 05/17/18 TIME: 12:46 Assessment/Plan Assessment/Plan Assessment/Plan 1. Acute metabolic encephalopathy 2. Chronic thalamic lacunar infarct 3. ESRD on HD TTS schedule 4. H/o mesothelioma Plan: pt is lethargic on BIPAP- iV abx as per PMD pt lethargic on BIPAP, Family still want to attempt HD tomorrow with albumin support explained to them pt is not tolerating HD and consider hospice care, said she will think about it Result Diagram: 05/15/18 0643 05/15/18 0643 Results 24hrs Laboratory Tests Test 05/16/18 14:27 05/16/18 17:59 05/17/18 05:24 05/17/18 06:38 Bedside Glucose 80 78 81 Random Vancomycin 14.6 Level Test 05/17/18 11:54 Bedside Glucose 79 Consultation Date/Type/Reason Admit Date/Time May 03, 2018 at 18:02 Initial Consult Date 05/03/18 Type of Consult NEPHROLOGY Requesting Provider: KATHARINE PETERS 24 HR Interval Summary Free Text/Dictation pt remains lethargic on BIPAP, at bedside Exam/Review of Systems Vital Signs Vitals Vital Signs Date Temp Pulse Resp B/P (MAP) Pulse Ox O2 O2 Flow FiO2 Time Delivery Rate 05/17/18 73 12:01 05/17/18 98.1 16 95/49 (64) 96 11:59 05/17/18 50 11:55 05/16/18 Mechanical 15:37 Ventilator Intake and Output 05/16/18 05/16/18 05/17/18 1515:00 23:00 07:00 IntakeIntake Total 775 ml 175 ml OutputOutput Total 0 ml BalanceBalance 775 ml 175 ml Exam Constitutional: moderate distress on BIPAP Respiratory: Bilateral Coarse BS+, diffuse wheezing Cardiovascular: regular rate and rhythm, nl pulses Gastrointestinal: soft, non-tender Musculoskeletal: nl extremities to inspection Neurological: lethargic on BIPAP Medications Medications Current Medications Glucagon (Glucagen) 1 mg Q15M PRN IM DECREASED GLUCOSE; Start 05/03/18 at 19:30 Ondansetron HCl (Zofran Inj) 4 mg Q4H PRN IV NAUSEA AND/OR VOMITING; Start 05/10/18 at 20:30 Acetaminophen (Tylenol Tab) 650 mg Q4H PRN PO MILD PAIN(1-3)OR ELEVATED TEMP; Start 05/10/18 at 20:30 Miscellaneous Information 1 ea NOTE XX ; Start 05/10/18 at 20:30 Glucose (Glutose) 15 gm Q15M PRN PO DECREASED GLUCOSE; Start 05/10/18 at 20:30 Glucose (Glutose) 22.5 gm Q15M PRN PO DECREASED GLUCOSE; Start 05/10/18 at 20:30 Dextrose (D50w Syringe) 25 ml Q15M PRN IV DECREASED GLUCOSE; Start 05/10/18 at 20:30 Dextrose (D50w Syringe) 50 ml Q15M PRN IV DECREASED GLUCOSE Last administered on 05/15/18at 00:08; Admin Dose 50 ML; Start 05/10/18 at 20:30 Glucagon (Glucagen) 1 mg Q15M PRN IM DECREASED GLUCOSE; Start 05/10/18 at 20:30 Glucose (Glutose) 15 gm Q15M PRN BUCCAL DECREASED GLUCOSE; Start 05/10/18 at 20:30 Levetiracetam 100 ml @ 400 mls/hr BID IVPB Last administered on 05/17/18at 09:18; Admin Dose 400 MLS/HR; Start 05/11/18 at 09:00 Morphine Sulfate (morphine SULFATE (PF)) 3 mg Q2 PRN IV dypsnea Last administered on 05/17/18at 04:12; Admin Dose 3 MG; Start 05/11/18 at 09:00 Lorazepam (Ativan) 1 mg Q2 PRN IV SEDATION; Start 05/11/18 at 09:00 Vancomycin HCl (Vanco Iv Per Pharmacy) VANCOMYCIN PER PHARMACY PER PROTOCOL XX ; Start 05/12/18 at 17:30 Cefepime HCl 50 ml @ 100 mls/hr Q24H IVPB Last administered on 05/16/18at 16 :31; Admin Dose 100 MLS/HR; Start 05/12/18 at 17:30 Dextrose/Sodium Chloride 1,000 ml @ 40 mls/hr Q24H IV Last administered on 05/16/18at 14:07; Admin Dose 40 MLS/HR; Start 05/12/18 at 20:00 Albumin Human 100 ml @ 100 mls/hr DURING DIALYSIS PRN IV BLOOD PRESSURE SUPPORT Last administered on 05/15/18at 09:39; Admin Dose 100 MLS/HR; Start 05/13/18 at 11:30 Insulin Aspart (Novolog Insulin Pen) NOVOLOG *MILD* ALGORI... Q6 SC ; Start 05/14/18 at 12:00 Vancomycin HCl 250 ml @ 125 mls/hr Q96H IVPB ; Start 05/17/18 at 16:00 RAYNE FITCH MD May 17, 2018 12:46
[2018-05-17] MEDS ORDERED: VANCOMYCIN 1 GM 250 ML IVPB SCH (16:00)
[2018-05-17] MEDS: DEXTROSE 5%-0.45% NACL 1,000 ML IV SCH (16:35)
--- NOTE | 2018-05-17 16:42 | PN ---
Date/Time of Note Date/Time of Note DATE: 05/17/18 TIME: 16:41 Assessment/Plan VTE Prophylaxis Risk score (from Ns)>0 risk: 8 SCD applied (from Ns): Yes Pharmacological prophylaxis: NA/contraindicated Pharm contraindication: other Lines/Catheters IV Catheter Type (from Nrsg): Saline Lock Urinary Cath still in place: No Assessment/Plan Hospital Course 72 yo male with ESRD with recently diagnosis with mesothelioma here with hypoxic/hypercapnic respiratory failure, now DNR/DNI and actively dying though patient's family refusing comfort measures. Prefer to continue aggressive treatment - Continue BIPAP for hypercapnic respiratory failure per patient's family request. ESRD: - HD as tolerated per Dr Bradley Damon Fib: - PRN metoprolol for RVR Mesothelioma: - No care to be offered per Dr Levin DNR/DNI Result Diagram: 05/15/18 0643 05/15/18 0643 Results 24hrs Laboratory Tests Test 05/16/18 17:59 05/17/18 05:24 05/17/18 06:38 05/17/18 11:54 Bedside Glucose 78 81 79 Random Vancomycin 14.6 Level Subjective 24 Hr Interval Summary Subjective hx not possible: pt non-verbal Exam/Review of Systems Vital Signs Vitals Vital Signs Date Temp Pulse Resp B/P (MAP) Pulse Ox O2 O2 Flow FiO2 Time Delivery Rate 05/17/18 98.1 71 16 102/47 95 15:43 (65) 05/17/18 50 15:10 05/16/18 Mechanical 15:37 Ventilator Intake and Output 05/16/18 05/16/18 05/17/18 1515:00 23:00 07:00 IntakeIntake Total 775 ml 175 ml OutputOutput Total 0 ml BalanceBalance 775 ml 175 ml Exam Constitutional: non-verbal Psych: confusion Respiratory: clear to auscultation Cardiovascular: regular rate and rhythm Gastrointestinal: soft Musculoskeletal: nl extremities to inspection Medications Medications Current Medications Glucagon (Glucagen) 1 mg Q15M PRN IM DECREASED GLUCOSE; Start 05/03/18 at 19:30 Ondansetron HCl (Zofran Inj) 4 mg Q4H PRN IV NAUSEA AND/OR VOMITING; Start 05/10/18 at 20:30 Acetaminophen (Tylenol Tab) 650 mg Q4H PRN PO MILD PAIN(1-3)OR ELEVATED TEMP; Start 05/10/18 at 20:30 Miscellaneous Information 1 ea NOTE XX ; Start 05/10/18 at 20:30 Glucose (Glutose) 15 gm Q15M PRN PO DECREASED GLUCOSE; Start 05/10/18 at 20:30 Glucose (Glutose) 22.5 gm Q15M PRN PO DECREASED GLUCOSE; Start 05/10/18 at 20:30 Dextrose (D50w Syringe) 25 ml Q15M PRN IV DECREASED GLUCOSE; Start 05/10/18 at 20:30 Dextrose (D50w Syringe) 50 ml Q15M PRN IV DECREASED GLUCOSE Last administered on 05/15/18at 00:08; Admin Dose 50 ML; Start 05/10/18 at 20:30 Glucagon (Glucagen) 1 mg Q15M PRN IM DECREASED GLUCOSE; Start 05/10/18 at 20:30 Glucose (Glutose) 15 gm Q15M PRN BUCCAL DECREASED GLUCOSE; Start 05/10/18 at 20:30 Levetiracetam 100 ml @ 400 mls/hr BID IVPB Last administered on 05/17/18at 09:18; Admin Dose 400 MLS/HR; Start 05/11/18 at 09:00 Morphine Sulfate (morphine SULFATE (PF)) 3 mg Q2 PRN IV dypsnea Last administered on 05/17/18at 04:12; Admin Dose 3 MG; Start 05/11/18 at 09:00 Lorazepam (Ativan) 1 mg Q2 PRN IV SEDATION; Start 05/11/18 at 09:00 Vancomycin HCl (Vanco Iv Per Pharmacy) VANCOMYCIN PER PHARMACY PER PROTOCOL XX ; Start 05/12/18 at 17:30 Cefepime HCl 50 ml @ 100 mls/hr Q24H IVPB Last administered on 05/16/18at 16:31; Admin Dose 100 MLS/HR; Start 05/12/18 at 17:30 Dextrose/Sodium Chloride 1,000 ml @ 40 mls/hr Q24H IV Last administered on 05/17/18at 16:35; Admin Dose 40 MLS/HR; Start 05/12/18 at 20:00 Albumin Human 100 ml @ 100 mls/hr DURING DIALYSIS PRN IV BLOOD PRESSURE SUPPORT Last administered on 05/15/18at 09:39; Admin Dose 100 MLS/HR; Start 05/13/18 at 11:30 Insulin Aspart (Novolog Insulin Pen) NOVOLOG *MILD* ALGORI... Q6 SC ; Start at 12:00 Vancomycin HCl 250 ml @ 125 mls/hr Q96H IVPB Last administered on 05/17/18at 16:30; Admin Dose 125 MLS/HR; Start 05/17/18 at 16:00 KATHARINE PETERS May 17, 2018 16:42
[2018-05-17] MEDS: CEFEPIME 1GM/50 ML (PMX) 50 ML IVPB SCH (20:18)
[2018-05-17] MEDS: ACETAMINOPHEN 1000MG/100ML IV 100 ML IVPB PRN (21:28)
[2018-05-18] VITALS (26 sets, daily range): BP systolic 69–99; BP diastolic 41–55; PULSE 0–115; RESP 17–24
[2018-05-18] MEDS: ACETAMINOPHEN 1000MG/100ML IV 100 ML IVPB PRN (04:26)
[2018-05-18] MEDS: INSULIN ASPART [NOVOLOG] 3 ML PEN SC SCH ×3 (06:00→12:00)
--- NOTE | 2018-05-18 08:39 | CONS ---
Date/Time of Note Date/Time of Note DATE: 05/18/18 TIME: 08:32 Assessment/Plan Assessment/Plan Hospital Course Second son has arrived today family conference scheduled at noon. Assessment/Plan Postdated note for patient visit May 18, 2018. Patient at the bedside, very tearful difficult to console her even with hand gestures. She states her sons are not available to speak to me at this time. Patient has not improved since last I evaluated him, still on BiPAP, encephalopathic still receiving hemodialysis. We will continue to support family members, but if patient has an acute dete rioration in his respiratory condition which we expect will be proactive in controlling his symptoms. Result Diagram: 05/15/18 0643 05/15/18 0643 Results 24hrs Laboratory Tests Test 05/17/18 11:54 05/17/18 17:51 05/17/18 20:19 05/18/18 02:08 Bedside Glucose 79 78 73 79 Test 05/18/18 05:43 Bedside Glucose 78 Consultation Date/Type/Reason Admit Date/Time May 03, 2018 at 18:02 Past Medical History Medical History: high cholesterol, hypertension, other (ESRD on HD ) Medications Current Medications Glucagon (Glucagen) 1 mg Q15M PRN IM DECREASED GLUCOSE; Start 05/03/18 at 19:30 Ondansetron HCl (Zofran Inj) 4 mg Q4H PRN IV NAUSEA AND/OR VOMITING; Start 05/10/18 at 20:30 Acetaminophen (Tylenol Tab) 650 mg Q4H PRN PO MILD PAIN(1-3)OR ELEVATED TEMP; Start 05/10/18 at 20:30 Miscellaneous Information 1 ea NOTE XX ; Start 05/10/18 at 20:30 Glucose (Glutose) 15 gm Q15M PRN PO DECREASED GLUCOSE; Start 05/10/18 at 20:30 Glucose (Glutose) 22.5 gm Q15M PRN PO DECREASED GLUCOSE; Start 05/10/18 at 20:30 Dextrose (D50w Syringe) 25 ml Q15M PRN IV DECREASED GLUCOSE; Start 05/10/18 at 20:30 Dextrose (D50w Syringe) 50 ml Q15M PRN IV DECREASED GLUCOSE Last administered on 05/15/18at 00:08; Admin Dose 50 ML; Start 05/10/18 at 20:30 Glucagon (Glucagen) 1 mg Q15M PRN IM DECREASED GLUCOSE; Start 05/10/18 at 20:30 Glucose (Glutose) 15 gm Q15M PRN BUCCAL DECREASED GLUCOSE; Start 05/10/18 at 20:30 Levetiracetam 100 ml @ 400 mls/hr BID IVPB Last administered on 05/17/18at 21:07; Admin Dose 400 MLS/HR; Start 05/11/18 at 09:00 Morphine Sulfate (morphine SULFATE (PF)) 3 mg Q2 PRN IV dypsnea Last administered on 05/17/18at 04:12; Admin Dose 3 MG; Start 05/11/18 at 09:00 Lorazepam (Ativan) 1 mg Q2 PRN IV SEDATION; Start 05/11/18 at 09:00 Vancomycin HCl (Vanco Iv Per Pharmacy) VANCOMYCIN PER PHARMACY PER PROTOCOL XX ; Start 05/12/18 at 17:30 Cefepime HCl 50 ml @ 100 mls/hr Q24H IVPB Last administered on 05/17/18at 20:18; Admin Dose 100 MLS/HR; Start 05/12/18 at 17:30 Dextrose/Sodium Chloride 1,000 ml @ 40 mls/hr Q24H IV Last administered on 05/17/18at 16:35; Admin Dose 40 MLS/HR; Start 05/12/18 at 20:00 Albumin Human 100 ml @ 100 mls/hr DURING DIALYSIS PRN IV BLOOD PRESSURE SUPPORT Last administered on 05/15/18at 09:39; Admin Dose 100 MLS/HR; Start 05/13/18 at 11:30 Insulin Aspart (Novolog Insulin Pen) NOVOLOG *MILD* ALGORI... Q6 SC ; Start 05/14/18 at 12:00 Vancomycin HCl 250 ml @ 125 mls/hr Q96H IVPB Last administered on 05/17/18at 16:30; Admin Dose 125 MLS/HR; Start 05/17/18 at 16:00 Acetaminophen 100 ml @ 400 mls/hr Q6H PRN IVPB MILD PAIN(1-3) OR TEMP>38C Last administered on 05/18/18at 04:26; Admin Dose 400 MLS/HR; Start 05/17/18 at 19:30; Stop 05/18/18 at 19:29 Allergies: Coded Allergies: No Known Allergy (Unverified , 03/22/18) Past Surgical History Past Surgical Hx: no surgical history, other Social History Alcohol Use: none Smoking Status: Never smoker Drug Use: none Exam/Review of Systems Vital Signs Vitals Vital Signs Date Temp Pulse Resp B/P (MAP) Pulse Ox O2 O2 Flow FiO2 Time Delivery Rate 05/18/18 97.9 72 19 87/45 (59) 96 07:49 05/18/18 45 07:30 05/16/18 Mechanical 15:37 Ventilator Intake and Output 05/17/18 05/17/18 05/18/18 1515:00 23:00 07:00 IntakeIntake Total 830 ml BalanceBalance 830 ml Exam Constitutional: non-verbal, distress, frail Psych: confusion Respiratory: congested cough, crackles/rales, diminished breath sounds, labored breathing, wheezing (Decreased breath sounds right greater than left lung field) Cardiovascular: regular rate and rhythm, nl pulses Neurological: confused, lethargic, other (Cannot follow simple commands does not open his eyes nonpurposeful movements, awake not alert) Medications Medications Current Medications Glucagon (Glucagen) 1 mg Q15M PRN IM DECREASED GLUCOSE; Start 05/03/18 at 19:30 Ondansetron HCl (Zofran Inj) 4 mg Q4H PRN IV NAUSEA AND/OR VOMITING; Start 05/10/18 at 20:30 Acetaminophen (Tylenol Tab) 650 mg Q4H PRN PO MILD PAIN(1-3)OR ELEVATED TEMP; Start 05/10/18 at 20:30 Miscellaneous Information 1 ea NOTE XX ; Start 05/10/18 at 20:30 Glucose (Glutose) 15 gm Q15M PRN PO DECREASED GLUCOSE; Start 05/10/18 at 20:30 Glucose (Glutose) 22.5 gm Q15M PRN PO DECREASED GLUCOSE; Start 05/10/18 at 20:30 Dextrose (D50w Syringe) 25 ml Q15M PRN IV DECREASED GLUCOSE; Start 05/10/18 at 20:30 Dextrose (D50w Syringe) 50 ml Q15M PRN IV DECREASED GLUCOSE Last administered on 05/15/18at 00:08; Admin Dose 50 ML; Start 05/10/18 at 20:30 Glucagon (Glucagen) 1 mg Q15M PRN IM DECREASED GLUCOSE; Start 05/10/18 at 20:30 Glucose (Glutose) 15 gm Q15M PRN BUCCAL DECREASED GLUCOSE; Start 05/10/18 at 20:30 Levetiracetam 100 ml @ 400 mls/hr BID IVPB Last administered on 05/17/18 21:07; Admin Dose 400 MLS/HR; Start 05/11/18 at 09:00 Morphine Sulfate (morphine SULFATE (PF)) 3 mg Q2 PRN IV dypsnea Last adm inistered on 05/17/18 04:12; Admin Dose 3 MG; Start 05/11/18 at 09:00 Lorazepam (Ativan) 1 mg Q2 PRN IV SEDATION; Start 05/11/18 at 09:00 Vancomycin HCl (Vanco Iv Per Pharmacy) VANCOMYCIN PER PHARMACY PER PROTOCOL XX ; Start 05/12/18 at 17:30 Cefepime HCl 50 ml @ 100 mls/hr Q24H IVPB Last administered on 05/17/18 20:18; Admin Dose 100 MLS/HR; Start 05/12/18 at 17:30 Dextrose/Sodium Chloride 1,000 ml @ 40 mls/hr Q24H IV Last administered on 05/17/18 16:35; Admin Dose 40 MLS/HR; Start 05/12/18 at 20:00 Albumin Human 100 ml @ 100 mls/hr DURING DIALYSIS PRN IV BLOOD PRESSURE SUPPORT Last administered on 05/15/18 09:39; Admin Dose 100 MLS/HR; Start 05/13/18 at 11:30 Insulin Aspart (Novolog Insulin Pen) NOVOLOG *MILD* ALGORI... Q6 SC ; Start 05/14/18 at 12:00 Vancomycin HCl 250 ml @ 125 mls/hr Q96H IVPB Last administered on 05/17/18 16:30; Admin Dose 125 MLS/HR; Start 05/17/18 at 16:00 Acetaminophen 100 ml @ 400 mls/hr Q6H PRN IVPB MILD PAIN(1-3) OR TEMP>38C Last administered on 05/18/18 04:26; Admin Dose 400 MLS/HR; Start 05/17/18 at 19:30; Stop 05/18/18 at 19:29 LAUREN SCHMITZ May 18, 2018 08:39
[2018-05-18] MEDS: ALBUMIN HUMAN 25% 100 ML IV PRN (10:15)
[2018-05-18] MEDS ORDERED: ALBUMIN HUMAN 25% 100 ML IV ONE (11:30)
[2018-05-18] MEDS: LEVETIRACETAM 500 MG (PMX) 100 ML IVPB SCH (12:27)
--- NOTE | 2018-05-18 14:25 | CONS ---
Date/Time of Note Date/Time of Note DATE: 05/18/18 TIME: 14:25 Assessment/Plan Assessment/Plan Assessment/Plan 1. Acute metabolic encephalopathy 2. Chronic thalamic lacunar infarct 3. ESRD on HD TTS schedule 4. H/o mesothelioma Plan: pt did not tolerate full due to hypotension, his condition deteriorating, BP very low - unresponsive explained famiy to consider hospice care pt will likely pass away Result Diagram: 05/15/18 0643 05/15/18 0643 Results 24hrs Laboratory Tests Test 05/17/18 17:51 05/17/18 20:19 05/18/18 02:08 05/18/18 05:43 Bedside Glucose 78 73 79 78 Test 05/18/18 12:14 Bedside Glucose 78 Consultation Date/Type/Reason Admit Date/Time May 03, 2018 at 18:02 Initial Consult Date 05/03/18 Type of Consult NEPHROLOGY Requesting Provider: KATHARINE PETERS 24 HR Interval Summary Free Text/Dictation pt did not tolerate full due to hypotension, his condition deteriorating, BP very low Exam/Review of Systems Vital Signs Vitals Vital Signs Date Temp Pulse Resp B/P (MAP) Pulse Ox O2 O2 Flow FiO2 Time Delivery Rate 05/18/18 78 96 45 13:40 05/18/18 79/51 (60) BIPAP 12:05 05/18/18 97.9 07:49 Intake and Output 05/17/18 05/17/18 05/18/18 1515:00 23:00 07:00 IntakeIntake Total 830 ml BalanceBalance 830 ml Medications Medications Current Medications Glucagon (Glucagen) 1 mg Q15M PRN IM DECREASED GLUCOSE; Start 05/03/18 at 19:30 Ondansetron HCl (Zofran Inj) 4 mg Q4H PRN IV NAUSEA AND/OR VOMITING; Start 05/10/18 at 20:30 Acetaminophen (Tylenol Tab) 650 mg Q4H PRN PO MILD PAIN(1-3)OR ELEVATED TEMP; Start 05/10/18 at 20:30 Miscellaneous Information 1 ea NOTE XX ; Start 05/10/18 at 20:30 Glucose (Glutose) 15 gm Q15M PRN PO DECREASED GLUCOSE; Start 05/10/18 at 20:30 Glucose (Glutose) 22.5 gm Q15M PRN PO DECREASED GLUCOSE; Start 05/10/18 at 20:30 Dextrose (D50w Syringe) 25 ml Q15M PRN IV DECREASED GLUCOSE; Start 05/10/18 at 20:30 Dextrose (D50w Syringe) 50 ml Q15M PRN IV DECREASED GLUCOSE Last administered on 05/15/18at 00:08; Admin Dose 50 ML; Start 05/10/18 at 20:30 Glucagon (Glucagen) 1 mg Q15M PRN IM DECREASED GLUCOSE; Start 05/10/18 at 20:30 Glucose (Glutose) 15 gm Q15M PRN BUCCAL DECREASED GLUCOSE; Start 05/10/18 at 20:30 Levetiracetam 100 ml @ 400 mls/hr BID IVPB Last administered on 05/18/18at 12:27; Admin Dose 400 MLS/HR; Start 05/11/18 at 09:00 Morphine Sulfate (morphine SULFATE (PF)) 3 mg Q2 PRN IV dypsnea Last administered on 05/17/18at 04:12; Admin Dose 3 MG; Start 05/11/18 at 09:00 Lorazepam (Ativan) 1 mg Q2 PRN IV SEDATION; Start 05/11/18 at 09:00 Vancomycin HCl (Vanco Iv Per Pharmacy) VANCOMYCIN PER PHARMACY PER PROTOCOL XX ; Start 05/12/18 at 17:30 Cefepime HCl 50 ml @ 100 mls/hr Q24H IVPB Last administered on 05/17/18at 20:18; Admin Dose 100 MLS/HR; Start 05/12/18 at 17:30 Dextrose/Sodium Chloride 1,000 ml @ 40 mls/hr Q24H IV Last administered on 05/17/18at 16:35; Admin Dose 40 MLS/HR; Start 05/12/18 at 20:00 Albumin Human 100 ml @ 100 mls/hr DURING DIALYSIS PRN IV BLOOD PRESSURE SUPPORT Last administered on 05/18/18at 10:15; Admin Dose 100 MLS/HR; Start 05/13/18 at 11:30 Insulin Aspart (Novolog Insulin Pen) NOVOLOG *MILD* ALGORI... Q6 SC ; Start 05/14/18 at 12:00 Vancomycin HCl 250 ml @ 125 mls/hr Q96H IVPB Last administered on 05/17/18at 16:30; Admin Dose 125 MLS/HR; Start 05/17/18 at 16:00 Acetaminophen 100 ml @ 400 mls/hr Q6H PRN IVPB MILD PAIN(1-3) OR TEMP>38C Last administered on 05/18/18at 04:26; Admin Dose 400 MLS/HR; Start 05/17/18 at 19:30; Stop 05/18/18 at 19:29 RAYNE FITCH MD May 18, 2018 14:25
--- NOTE | 2018-05-18 16:21 | DES ---
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 Infectious workup was negative and CT brain showed no acute findings. Etiology of encephalopathy was secondary to progressive mesothelioma, patient was seen by oncology but patient was too unstable to receive chemotherapy. Patient did require BiPAP for hypercapnic restaurant failure, patient was being followed by palliative care and patient was a DNR. Patient ultimately succumbed to his terminal illness on 05/18/2018 was pronounced at 3:35 PM. KATHARINE PETERS May 18, 2018 16:21
== END 2018-05-18 15:35 | disposition expired | DRG 70 ==
LOC: E/R 15:04 → TEL 18:02
PROVIDERS: ADMIT Internal Medicine; ATTEND Internal Medicine
PROC: 5A1D70Z Performance of Urinary Filtration, Intermittent, Less than 6 Hours Per Day (ICD-10-PCS; principal; 2018-05-04)
PROC: 5A09557 Assistance with Respiratory Ventilation, Greater than 96 Consecutive Hours, Continuous Positive Airway Pressure (ICD-10-PCS; 2018-05-12)
DX: G93.41 Metabolic encephalopathy (principal); N18.6 End stage renal disease; J96.02 Acute respiratory failure with hypercapnia; J96.01 Acute respiratory failure with hypoxia; C45.0 Mesothelioma of pleura; N28.89 Other specified disorders of kidney and ureter; I48.91 Unspecified atrial fibrillation; Z66 Do not resuscitate; Z99.2 Dependence on renal dialysis; Z86.73 Personal history of transient ischemic attack (TIA), and cerebral infarction without residual deficits
CPT/HCPCS: 36415; 36600; 70450; 71045; 76604; 80048; 80053; 80202; 82140; 82803; 82962; 83605; 83735; 84100; 84484; 85025; 85610; 85730; 87040; 87340; 87400; 90935; 93005; 94660; 96374; 96375; J0131; J0692; J1644; J1815; J1940; J1953; J2274; J3370; J3420; J7030; J7040; J7042; J7050; P9047